=== PATIENT | male | born 1980 | race Caucasian/White ===

== ENCOUNTER 2023-09-30 20:36 | Inpatient (IN) | payer OTHER, SELFPAY ==
[2023-09-30 20:49] VITALS: BP 128/78; PULSE 145; RESP 20; TEMP 36.6; O2SAT 94; BMI 34.4
--- NOTE | 2023-09-30 21:00 | XR_ITS ---
The [address] [address] Patient Name: KANDICE POLANCO MRN: [id number] date: 1980 Sex: M Assigned Patient Location: ER Current Patient Location: ER Accession/Order Number: [id number] Exam Date: 09/30/2023 21:25 Report Date: 09/30/2023 22:13 At the request of: ELVIRA MAYFIELD Procedure: XR foot RT min 3V EXAM: XR foot RT min 3V HISTORY: The patient is a 43-year-old male, injury COMPARISON: None. FINDINGS: The right foot is radiographically negative with no evidence of fracture, dislocation, joint space narrowing, osteophytes, or other osseous or articular abnormalities. Specifically, no osseous or articular abnormalities are seen of the fifth toe. No radiopaque foreign bodies are seen. XR/XR foot RT min 3V IMPRESSION: No osseous or articular abnormality seen. Electronically authenticated by: WILMA HINTON Date: 09/30/2023 22:13
--- NOTE | 2023-09-30 21:02 | ED_ITS ---
HPI - Extremity Injury (Lower) General Chief Complaint: Extremity Injury, Lower Stated Complaint: FOOT INJURY Time Seen by Provider: 09/30/23 20:54 Source: patient and family Mode of arrival: Wheelchair Limitations: physical limitation History of Present Illness HPI Narrative: patient has history of bipolar depression. is on multiple meds including zyprexa, neurontin, omega 3, vistaril,prozac, doxepin and clonidine . Admits he is an alcoholic. Describes drinking 6 tall boys a day and whiskey. States last drink was 5AM.States he does have withdrawal from alcohol manifested by shaking. he is shaking now but attributes this to be nervous. He lives with his mother who is at the bed side. He presents with a laceration of the right 5th toe. He belies he cut it yesterday and his mother believes he cut it today. States he step on a Lego toy or similar. He has dried blood on the bottom of both feet from walking in the blood. States he fell striking his chin and then changed his mind stating he did not fall. Related Data Home Medications Medication Instructions Recorded Confirmed clonidine HCl 0.2 mg tablet 0.2 mg PO BEDTIME 09/30/23 10/01/23 doxepin 10 mg capsule 10 mg PO .hs 09/30/23 10/01/23 fluoxetine 10 mg capsule 10 mg PO DAILY 09/30/23 10/01/23 gabapentin 100 mg capsule 100 mg PO TID 09/30/23 10/01/23 gabapentin 300 mg capsule 600 mg PO Q8H 09/30/23 10/01/23 hydroxyzine pamoate 50 mg capsule 50 mg PO Q8H 09/30/23 10/01/23 olanzapine 20 mg tablet 20 mg PO BEDTIME 09/30/23 10/01/23 omega-3 acid ethyl esters 1 gram 2 cap PO BID 09/30/23 10/01/23 capsule omeprazole 20 mg capsule,delayed 20 mg PO DAILY 09/30/23 10/01/23 release buspirone 10 mg tablet 10 mg PO TID 10/01/23 10/01/23 melatonin 3 mg tablet 3 mg PO BEDTIME 10/01/23 10/01/23 viloxazine 200 mg capsule,extended 400 mg PO BEDTIME 10/01/23 10/01/23 release 24 hr (Qelbree) Allergies Allergy/AdvReac Type Severity Reaction Status Date / Time azithromycin Allergy Intermediate Verified 09/30/23 21:03 codeine Allergy Intermediate Verified 09/30/23 20:58 Penicillins Allergy Intermediate Verified 09/30/23 20:58 Sulfa (Sulfonamide Allergy Intermediate Verified 09/30/23 20:58 Antibiotics) Review of Systems ROS Status of ROS other (limited as patient is anxious and poor historian) [facility] Medical History Anxiety ?F41.9 - Anxiety disorder, unspecified (ICD-10) Bipolar 1 disorder ?F31.9 - Bipolar disorder, unspecified (ICD-10) Social History Within the past year, how often did you have a drink containing alcohol: 4 or more times a week Within the past year, how many standard drinks containing alcohol did you have on a typical day: 7 to 9 Within the past year, how often did you have six or more drinks on one occasion: daily or almost daily Total score: 10 Score interpretation: A score of 4 or more indicates drinking is likely to affect patient's safety. Smoking status: Current every day smoker Non-prescribed substance use: cannabis (any form) Highest level of school completed/degree received: some college, no degree Exam Constitutional Vital Signs, click to edit/add: Last Vital Signs Temp 97.8 F 09/30/23 20:49 Pulse 145 H 09/30/23 20:49 Resp 20 09/30/23 20:49 BP 128/78 09/30/23 20:49 Pulse Ox 94 L 09/30/23 20:49 O2 Del Method Room Air 09/30/23 20:49 Common normals: no apparent distress, oriented x3, alert and well nourished HENVA Common normals: normocephalic and head/scalp atraumatic Eye Common normals: EOMs intact bilaterally and conjunctivae normal Respiratory Common normals: normal respiratory effort, no retractions, no use of accessory muscles and clear to auscultation bilaterally Cardio Common normals: regular rate, regular rhythm, S1 normal heart sound and S2 normal heart sound GI Common normals: Normal to inspection, nondistended, normoactive bowel sounds present and soft to palpation Extremity Other: lac right 5th toe. blood on soles bilat feet. Neuro Common normals: CN's II-XII intact bilaterally, moves all extremities and no focal motor deficits Psych Mood and affect: anxious Course Vital Signs Vital signs: Vital Signs Temperature 97.8 F 09/30/23 20:49 Pulse Rate 145 H 09/30/23 20:49 Respiratory Rate 20 09/30/23 20:49 Blood Pressure 128/78 09/30/23 20:49 Pulse Oximetry 94 L 09/30/23 20:49 Oxygen Delivery Method Room Air 09/30/23 20:49 Temperature 97.8 F 09/30/23 20:49 Pulse Rate 145 H 09/30/23 20:49 Respiratory Rate 20 09/30/23 20:49 Blood Pressure 128/78 09/30/23 20:49 Pulse Oximetry 94 L 09/30/23 20:49 Oxygen Delivery Method Room Air 09/30/23 20:49 MDM - Extremity Injury (Lower) MDM Narrative Medical decision making narrative: patient is poor historian. bipolar illness and alcoholic. Resides at home with his mother. After repeated questioning he apparently dropped a toy or something on his foot lacerating his 5th right toe. lac repaired. Xray without evidence of bony fracture. Patient is AxOx4 but at times appears confused. Mother admits that he has had responsibility of taking his [facility] meds of which there are many. She use to give them to him. he is jittery and states this happens to him with his anxiety and with alcohol withdrawal. have advised his mother that she should take responsibility of giving him his medications. CT brain neg. He is confused . May be from taking more of his medication than prescribe and could be alcohol withdrawal. patient is starting to have visual hallucinations. Discussed with the hospitalist and will plan obs admission Discharge Plan Discharge Chief Complaint: Extremity Injury, Lower Clinical Impression: Tremor, Hallucination, visual Laceration of fifth toe of right foot Qualifiers: Encounter type: initial encounter Qualified Code(s): S91.114A - Laceration without foreign body of right lesser toe(s) without damage to nail, initial encounter Altered mental state Qualifiers: Altered mental status type: delirium Qualified Code(s): R41.0 - Disorientation, unspecified Patient Disposition: Admitted as Observation Discharge Date/Time: 10/01/23 00:46 Procedures ED Procedure Instructions Procedures Procedures: right fifth toe lac. 2cm flap lac dorsum right 5th toe to the edge of the nail. Nail intact. 1%lido as a local. site cleaned with betadine and rinsed with saline. repaired with #4 3.0 prolene. no complications
[2023-09-30 21:25] LABS: Basophils Absolute Auto 0.1 10^3/uL (0.0-0.1); Basophils Percent Auto 0.6 % (0.2-2.0); Eosinophils Absolute Auto 0.1 10^3/uL (0.0-0.7); Eosinophils Percent Auto 0.8 % (0.9-7.0); Hemoglobin 15.6 g/dL (14.0-18.0); Immature Granulocytes Abs Auto 0.04 10^3/uL (0.00-0.03); Immature Granulocytes Pct Auto 0.3 % (0.0-0.5); Lymphocytes Absolute Auto 3.9 10^3/uL (1.2-3.8); Lymphocytes Percent Auto 25.3 % (20.5-60.0); Mean Corpuscular HGB Conc 34.7 g/dL (29.9-35.2); Mean Corpuscular Hemoglobin 30.8 pg (25.9-34.0); Mean Corpuscular Volume 88.9 fL (80.0-94.0); Mean Platelet Volume 9.6 fL (9.5-13.5); Monocytes Absolute Auto 1.3 10^3/uL (0.3-0.8); Monocytes Percent Auto 8.1 % (1.7-12.0); Neutrophils Absolute Auto 10.1 10^3/uL (1.4-6.5); Neutrophils Percent Auto 64.9 % (43.0-75.0); Platelet Count 405 10^3/uL (150-450); Red Blood Count 5.06 10^6/uL (4.70-6.10); Red Cell Distribution Width 12.2 % (11.0-15.0); White Blood Count 15.5 10^3/uL (4.0-11.0)
[2023-09-30 21:34] LABS: Salicylate 17.3 mg/dL (<=19.9)
[2023-09-30 21:36] LABS: Alanine Aminotransferase 58 U/L (16-63); Albumin Level 3.9 g/dL (3.4-5.0); Alkaline Phosphatase 102 U/L (46-116); Anion Gap 15.4; Aspartate Amino Transferase 19 U/L (15-37); BUN Creatinine Ratio 10.8; Bilirubin Total 0.3 mg/dL (0.2-1.0); Carbon Dioxide 24.1 mmol/L (21.0-32.0); Chloride 98 mmol/L (98-107); Estimated GFR (African America 51 (>=60); Estimated GFR (Non-African Ame 42 (>=60); Globulin 3.9 g/dL; Glucose 130 mg/dL (74-106); Potassium 3.5 mmol/L (3.5-5.1); Sodium 134 mmol/L (136-145); Total Protein 7.8 g/dL (6.4-8.2)
[2023-09-30 21:46] LABS: Acetaminophen <2.0 ug/mL (10.0-30.0); Ethanol <3 mg/dL
[2023-09-30] MEDS: LIDOCAINE HCL 1% 100 MG/10 ML MDV INJ (22:05)
--- NOTE | 2023-09-30 22:21 | CT_ITS ---
The [address] [address] Patient Name: KANIDCE POLANCO MRN: [id number] date: 1980 Sex: M Assigned Patient Location: ER Current Patient Location: ER Accession/Order Number: [id number] Exam Date: 09/30/2023 22:29 Report Date: 09/30/2023 22:53 At the request of: ELVIRA MAYFIELD Procedure: CT cervical spine wo con EXAM: CT head/brain wo con, CT cervical spine wo con CLINICAL INDICATION: fall COMPARISON: None TECHNIQUE: Unenhanced computerized tomography of the head was performed. Automated dose reduction technique was employed. Multiple axial slices of the cervical spine were obtained without contrast and with coronal and sagittal reformatted images. COMPARISON: None. FINDINGS: The ventricles are normal in size, configuration, and position for age. There is no intra- or extra-axial mass, hemorrhage, or fluid collection. No areas of abnormal mass effect or attenuation are noted. Visualized paranasal sinuses are free of mucosal disease. No depressed calvarial fracture. Vertebral height and alignment is preserved. No acute fracture or subluxation. The atlanto occipital joint is maintained. The odontoid and lateral masses are intact. Mild multilevel degenerative changes of the cervical spine. The prevertebral soft tissues are within normal limits. The adjacent structures appear intact. The visualized soft tissues of the neck are normal. CT/CT cervical spine wo con IMPRESSION: 1. No acute intracranial abnormality noted. 2. No acute fracture or subluxation of the cervical spine. Electronically authenticated by: CATHERINE DIEGO Date: 09/30/2023 22:53
--- NOTE | 2023-09-30 22:21 | CT_ITS ---
The [address] [address] Patient Name: KANDICE POLANCO MRN: [id number] date: 1980 Sex: M Assigned Patient Location: ER Current Patient Location: ER Accession/Order Number: [id number] Exam Date: 09/30/2023 22:29 Report Date: 09/30/2023 22:53 At the request of: ELVIRA MAYFIELD Procedure: CT head/brain wo con EXAM: CT head/brain wo con, CT cervical spine wo con CLINICAL INDICATION: fall COMPARISON: None TECHNIQUE: Unenhanced computerized tomography of the head was performed. Automated dose reduction technique was employed. Multiple axial slices of the cervical spine were obtained without contrast and with coronal and sagittal reformatted images. COMPARISON: None. FINDINGS: The ventricles are normal in size, configuration, and position for age. There is no intra- or extra-axial mass, hemorrhage, or fluid collection. No areas of abnormal mass effect or attenuation are noted. Visualized paranasal sinuses are free of mucosal disease. No depressed calvarial fracture. Vertebral height and alignment is preserved. No acute fracture or subluxation. The atlanto occipital joint is maintained. The odontoid and lateral masses are intact. Mild multilevel degenerative changes of the cervical spine. The prevertebral soft tissues are within normal limits. The adjacent structures appear intact. The visualized soft tissues of the neck are normal. CT/CT head/brain wo con IMPRESSION: 1. No acute intracranial abnormality noted. 2. No acute fracture or subluxation of the cervical spine. Electronically authenticated by: CATHERINE DIEGO Date: 09/30/2023 22:53
[2023-09-30] MEDS: CLINDAMYCIN HCL 150 MG CAPSULE 300 MG PO (22:50)
[2023-09-30] MEDS: 0.9 % SODIUM CHLORIDE 1,000 ML 999 ML IV (23:05)
[2023-09-30] MEDS: LORAZEPAM 2 MG/ML 1 ML VIAL 1 MG IV (23:30)
[2023-09-30 23:32] LABS: Amphetamine Screen Urine NEGATIVE (NEGATIVE); Barbiturates Screen Urine NEGATIVE (NEGATIVE); Benzodiazepines Screen Urine NEGATIVE (NEGATIVE); Buprenorphine Screen Urine NEGATIVE (NEGATIVE); Cannabinoid Screen Urine POSITIVE (NEGATIVE); Cocaine Screen Urine NEGATIVE (NEGATIVE); Methadone Screen Urine NEGATIVE (NEGATIVE); Methamphetamines Screen Urine NEGATIVE (NEGATIVE); Opiate Screen Urine NEGATIVE (NEGATIVE); Oxycodone Screen Urine NEGATIVE (NEGATIVE); Phencyclidine Screen Urine NEGATIVE (NEGATIVE); Tricyclic Antidepressant Urine POSITIVE (NEGATIVE)
[2023-09-30 23:38] VITALS: BP 121/73; PULSE 135; RESP 24; O2SAT 96
--- NOTE | 2023-09-30 23:41 | PC.NURSE ---
Patient has just started having visual hallucinations that include seeing kittens in the corner of his room. His speech has become more jumbled and confused also. During his last set of vitals, he took the pulse ox monitor off of his finger and shoved it into his mouth saying it was illegal contraband and needed to get rid of it. This behavior was corrected and he was told not to do this. He has tried to pull out his IV numerous times, RN is acting as constand observer at this time for patient safety.
[2023-10-01] VITALS (149 sets, daily range): BP systolic 89–164; BP diastolic 52–112; PULSE 92–147; RESP 12–30; TEMP 36.4–37.2; O2SAT 66–147; BMI 37.5
[2023-10-01 00:40] LABS: Bilirubin Urine NEGATIVE (NEGATIVE); Blood Urine NEGATIVE (NEGATIVE); Clarity Urine CLEAR (CLEAR); Color Urine YELLOW (YELLOW); Glucose Urine UA NEGATIVE (NEGATIVE); Ketones Urine TRACE mg/dL (NEGATIVE); Leukocyte Esterase Urine NEGATIVE (NEGATIVE); Nitrite Urine NEGATIVE (NEGATIVE); Protein Urine NEGATIVE (NEG/TRACE); Specific Gravity Urine >=1.030 (1.005-1.025); Urobilinogen Urine 0.2 EU/dL (0.2-1.0)
[2023-10-01] MEDS: LORAZEPAM 2 MG/ML 1 ML VIAL 1 MG IV ×2 (00:40→06:40)
[2023-10-01 00:43] LABS: Urine Microscopic Indicated NO
[2023-10-01] MEDS: ZIPRASIDONE MESYLATE 20 MG, WATER FOR INJECTION,STERILE 1.2 ML IM (01:52)
[2023-10-01] MEDS: HALOPERIDOL LACTATE 5 MG/ML VIAL IM ×2 (03:37→04:41)
[2023-10-01 04:35] LABS: Basophils Absolute Auto 0.1 10^3/uL (0.0-0.1); Basophils Percent Auto 0.4 % (0.2-2.0); Eosinophils Percent Auto 0.1 % (0.9-7.0); Hematocrit 41.2 % (42.0-54.0); Hemoglobin 13.8 g/dL (14.0-18.0); Immature Granulocytes Abs Auto 0.05 10^3/uL (0.00-0.03); Immature Granulocytes Pct Auto 0.3 % (0.0-0.5); Lymphocytes Absolute Auto 2.2 10^3/uL (1.2-3.8); Lymphocytes Percent Auto 13.3 % (20.5-60.0); Mean Corpuscular HGB Conc 33.5 g/dL (29.9-35.2); Mean Corpuscular Hemoglobin 30.3 pg (25.9-34.0); Mean Corpuscular Volume 90.5 fL (80.0-94.0); Mean Platelet Volume 9.7 fL (9.5-13.5); Monocytes Absolute Auto 1.5 10^3/uL (0.3-0.8); Monocytes Percent Auto 9.3 % (1.7-12.0); Neutrophils Absolute Auto 12.7 10^3/uL (1.4-6.5); Neutrophils Percent Auto 76.6 % (43.0-75.0); Platelet Count 341 10^3/uL (150-450); Red Blood Count 4.55 10^6/uL (4.70-6.10); Red Cell Distribution Width 12.2 % (11.0-15.0); White Blood Count 16.5 10^3/uL (4.0-11.0)
[2023-10-01 04:49] LABS: Alanine Aminotransferase 49 U/L (16-63); Albumin Level 3.6 g/dL (3.4-5.0); Alkaline Phosphatase 95 U/L (46-116); Anion Gap 17.4; Aspartate Amino Transferase 24 U/L (15-37); BUN Creatinine Ratio 10.3; Bilirubin Total 0.3 mg/dL (0.2-1.0); Calcium 8.6 mg/dL (8.5-10.1); Chloride 101 mmol/L (98-107); Estimated GFR (African America 49 (>=60); Estimated GFR (Non-African Ame 40 (>=60); Globulin 3.6 g/dL; Glucose 151 mg/dL (74-106); Potassium 3.4 mmol/L (3.5-5.1); Sodium 137 mmol/L (136-145); Total Protein 7.2 g/dL (6.4-8.2)
[2023-10-01] MEDS: OMEPRAZOLE 20 MG CAPSULE.DR PO (06:41)
[2023-10-01] MEDS: OLANZapine 5 MG TABLET 20 MG PO (06:45)
[2023-10-01] MEDS: HALOPERIDOL LACTATE 5 MG/ML VIAL 10 MG IM (08:11)
[2023-10-01] MEDS: LORAZEPAM 2 MG/ML 1 ML VIAL IV (08:11)
[2023-10-01] MEDS: DIPHENHYDRAMINE HCL 50 MG/ML (1ML) VIAL IV (08:11)
--- NOTE | 2023-10-01 08:42 | P.HP_ITS ---
H&P: HPI History of Present Illness Chief complaint: FOOT INJURY Narrative: patient is a 43-year-old male with past medical history of bipolar depression and alcoholism who presented to the Emergency Room last night with a laceration to his right 5th toe. In the emergency department he started shaking and acting oddly. He told the Emergency Room physician that his last drink was at 5 AM that morning so approximately seventeen hours from his last drink. He reported drinking about six tall beers a day along with whiskey.because of the shaking and also patient started to have some visual hallucinations the Emergency Room physician felt it best for admission due to his confusion and altered mental status. Patient arrived to the room and ICU approximately 1 AM. Nighttime staff and nighttime nurse practitioner gave patient Geodon, Haldol and Ativan without having any success at controlling patient's erratic behavior, combativeness. Patient has been on neuro checks as well as alcohol withdrawal scores. Patient attempted to bite staff as well as kick and throw punches. Patient was placed in soft restraints. He was then administered IV Ativan, another dose of Haldol, again without success.patient was then started on a Precedex drip which also did not seem to help. Patient became more somnolent, with agonal breathing and ABG showed respiratory acidosis with a low PO2. At this time patient could not protect his airway, and would not tolerate BiPAP ,so decision was made for intubation. and intubation was performed by anesthesia the vision. Dr. Lainez was consulted for Ventilator management. patient is currently on a propofol and Versed drip. Blood pressures are more controlled, tachycardia is still present but improving. Patient had PVCs. Chest x-ray was obtained that showed good placement of endotracheal tube, but with cardiomegaly and bilateral pleural effusions. He received a liter of normal saline as a bolus. Cardiac enzymes, echocardiogram, septic workup was initiated. Patient also found to have a leukocytosis along with acute kidney injury. Per nurse who spoke with patient 's mother, he has been intubated in the past in [facility] in [place] for acute alcohol withdrawal. It is uncertainto whether patient has been taking his medications correctly, urine drug screen was positive for THC, and tricyclic antidepressants. Review of Systems ROS Status of ROS unobtainable due to endotracheal tube and unobtainable due to mental status [facility] Medical History Anxiety ?F41.9 - Anxiety disorder, unspecified (ICD-10) Bipolar 1 disorder ?F31.9 - Bipolar disorder, unspecified (ICD-10) Social History Highest level of school completed/degree received: some college, no degree Meds Home Medications and Allergies Home Medications Medication Instructions Recorded Confirmed Type clonidine HCl 0.2 mg tablet 0.2 mg PO BEDTIME 09/30/23 10/01/23 History doxepin 10 mg capsule 10 mg PO .hs 09/30/23 10/01/23 History fluoxetine 10 mg capsule 10 mg PO DAILY 09/30/23 10/01/23 History gabapentin 100 mg capsule 100 mg PO TID 09/30/23 10/01/23 History gabapentin 300 mg capsule 600 mg PO Q8H 09/30/23 10/01/23 History hydroxyzine pamoate 50 mg capsule 50 mg PO Q8H 09/30/23 10/01/23 History olanzapine 20 mg tablet 20 mg PO BEDTIME 09/30/23 10/01/23 History omega-3 acid ethyl esters 1 gram 2 cap PO BID 09/30/23 10/01/23 History capsule omeprazole 20 mg capsule,delayed 20 mg PO DAILY 09/30/23 10/01/23 History release buspirone 10 mg tablet 10 mg PO TID 10/01/23 10/01/23 History melatonin 3 mg tablet 3 mg PO BEDTIME 10/01/23 10/01/23 History viloxazine 200 mg capsule,extended 400 mg PO BEDTIME 10/01/23 10/01/23 History release 24 hr (Qelbree) Allergies Allergy/AdvReac Type Severity Reaction Status Date / Time azithromycin Allergy Intermediate Verified 09/30/23 21:03 codeine Allergy Intermediate Verified 09/30/23 20:58 Penicillins Allergy Intermediate Verified 09/30/23 20:58 Sulfa (Sulfonamide Allergy Intermediate Verified 09/30/23 20:58 Antibiotics) Exam Narrative Exam Narrative: General: Patient is currently intubated Skin: no visible rashes, or ulcers, bleeding of 5th toe right foot. Head: atraumatic, acephalic Eyes: PERRLA, no nystagmus present, conjunctiva clear, no scleral icterus Heart: Normal rate and rhythm, no murmurs/rubs/gallops Lungs: no audible wheezes, crackles and normal breath sounds all lung [place] Abdomen: Normal audible bowel sounds, no distension, No palpable masses, no organomegaly, no rebound/guarding/ or rigidity Musculoskeletal: no swelling bilateral lower extremities Neuro: CN II-X grossly intact Constitutional Vital Signs, click to edit/add: Last Vital Signs Temp 97.5 F L 10/01/23 01:37 Pulse 133 H 10/01/23 06:26 Resp 22 10/01/23 06:26 BP 127/77 10/01/23 06:26 Pulse Ox 94 L 10/01/23 06:26 O2 Del Method Room Air 10/01/23 06:26 Results Labs Labs: Short CBC 09/30/23 10/01/23 Range/Units 21:10 04:03 WBC 15.5 H 16.5 H (4.0-11.0) 10^3/uL Hgb 15.6 13.8 L (14.0-18.0) g/dL Hct 45.0 41.2 L (42.0-54.0) % Plt Count 405 341 (150-450) 10^3/uL BMP 09/30/23 10/01/23 21:10 04:03 Sodium 134 L 137 Potassium 3.5 3.4 L Chloride 98 101 Carbon Dioxide 24.1 22.0 BUN 19.0 H 19.0 H Creatinine 1.76 H 1.84 H Glucose 130 H 151 H Calcium 9.0 8.6 Liver Function 09/30/23 10/01/23 Range/Units 21:10 04:03 Total Bilirubin 0.3 0.3 (0.2-1.0) mg/dL AST 19 24 (15-37) U/L ALT 58 49 (16-63) U/L Alkaline Phosphatase 102 95 (46-116) U/L Albumin 3.9 3.6 (3.4-5.0) g/dL Urine 09/30/23 Range/Units 23:15 Urine Color Yellow (YELLOW) Urine Clarity Clear (CLEAR) Urine pH 5.0 (5.0-9.0) Ur Specific [place] >=1.030 A (1.005-1.025) Urine Protein Negative (NEG/TRACE) mg/dL Urine Glucose (UA) Negative (NEGATIVE) mg/dL Assessment and Plan Assessment and Plan (1) Acute hypoxic respiratory failure: Assessment and Plan: secondary to altered mental status which is secondary to possible psychiatric versus alcohol withdrawal. PH was 7.33 with a PO2 of fifty-six and a PCO2 of forty-five, patient was not able to maintain airway so endotracheal intubation was obtained. Chest x-ray showed good placement of ET tube. Patient is currently on propofol and Versed drips. Dr. Lainez is managing vent settings and adjustments. I appreciate his input. 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 Hopefully with sedation on Versed this should help improve his agitation as well. (3) Altered mental state: Assessment and Plan: polypharmacy versus alcohol versus drug abuse. uncertain etiology, but continue with neuro checks, CIWA scores, seizure precautions, and sedation. head CT was negative Qualifiers: Altered mental status type: delirium Qualified Code(s): R41.0 - Disorientation, unspecified (4) Laceration of fifth toe of right foot: Assessment and Plan: no active bleeding continue pressure dressing Qualifiers: Encounter type: initial encounter Qualified Code(s): S91.114A - Laceration without foreign body of right lesser toe(s) without damage to nail, initial encounter (5) Bipolar 1 disorder: Assessment and Plan: will hold home medications while patient is intubated and sedated (6) Leukocytosis: Assessment and Plan: lactate normal, we'll monitor and consider addition of IV antibiotics. Blood cultures ?2 and urinalysis obtained. Qualifiers: Leukocytosis type: unspecified Qualified Code(s): D72.829 - Elevated white blood cell count, unspecified (7) Elevated troponin level: Assessment and Plan: could be from acute kidney injury, aspiration, willl continue to trend, echocardiogram pending, no known cardiac history (8) YESSENIA (acute kidney injury): Assessment and Plan: we'll provide IV fluids at normal saline at fifty, patient has artery received a 1 L bolus. Plan patient is a full code Lovenox for deep vein thrombosis prophylaxis Due to patient's worsening condition patient was made inpatient status, I expect this patient to cross two midnights and require medically necessary hospital services
[2023-10-01] MEDS: DEXMEDETOMIDINE HCL 200 MCG in 0.9 % SODIUM CHLORIDE 50 ML 6.157 MCG IV (08:44)
--- NOTE | 2023-10-01 09:17 | PC.NURSE ---
Patient medicated and lightly sedated at this time. Patient remains combative upon arousal. Patient tries to bite, kick, punch patient and is sitting up in bed agitated mumbling incoherently. Patient is still in violent restraints. Patient tolerates restraints with minimal difficulties.
[2023-10-01 09:57] LABS: ABG PCO2 45.2 mmHg (35.0-45.0); Base Excess ABG -1.5 mmol/L (-2.0-2.0); HCO3 ABG 24.3 mmol/L (22.0-26.0); pH ABG 7.339 (7.350-7.450)
[2023-10-01 09:58] LABS: Allen Test POSITIVE (POSITIVE); Oxygen Saturation ABG 90.2 %; PO2 ABG 56.4 mmHg (80.0-100.0)
[2023-10-01 09:59] LABS: Liters per Minute 15; O2 Mode SIMPLE MASK; Puncture Site LR
[2023-10-01] MEDS: MIDAZOLAM HCL 2 MG/2 ML VIAL IV ×4 (10:20→19:51)
[2023-10-01] MEDS: PROPOFOL 200 MG/20 ML VIAL 150 MG IVP (10:21)
[2023-10-01] MEDS: SUCCINYLCHOLINE CHLORIDE 20 MG/ML VIAL 140 MG IV (10:22)
--- NOTE | 2023-10-01 10:26 | XR_ITS ---
[address] [address] Patient Name: KANDICE POLANCO MRN: [id number] date: 1980 Sex: M Assigned Patient Location: ICU Current Patient Location: ICU Accession/Order Number: [id number] Exam Date: 10/01/2023 10:35 Report Date: 10/01/2023 11:29 At the request of: SADIA SEGOVIA Procedure: XR chest 1V EXAM: XR chest 1V EXAM: XR chest 1V HISTORY: intubation COMPARISON: None. TECHNIQUE: AP view of the chest. Findings/impression: Status post ET tube placement with the distal tip 2.0 cm from roxi. Cardiomegaly with congestion. Left basilar atelectasis or pneumonia. Trace bilateral pleural effusions. No pneumothorax. Unremarkable osseous structures. Electronically authenticated by: KEVEN CARTER Date: 10/01/2023 11:29
[2023-10-01] MEDS: PROPOFOL 1,000 MG/100 ML VIAL 3.552 MG IV (10:30)
[2023-10-01] MEDS: 0.9 % SODIUM CHLORIDE 1,000 ML 100 ML IV (10:45)
--- NOTE | 2023-10-01 10:49 | CM.NOTE ---
Rounds made with Dr. Torres, pt in [address] Torres discussed with anesthesia for intubation. Blood cultures will be done, strep test, and urine.
--- NOTE | 2023-10-01 10:58 | CM.NOTE ---
Dr. Torres spoke with Dr. Lainez on telephone and will accept to do ventilator management for pt.
--- NOTE | 2023-10-01 11:16 | PC.NURSE ---
1015 Dr. Torres Anesthesia in room. 1020 Versed 2 mg 1021 Propofol 150mg 1022 Succinylcholine 140mg 1023 Intubated with an number 8 E.T tube, 24cm at the lip. 1025 87% Ox sat 125 HR 157/88BP, Positive Bilateral lung sounds Vent settings -AC, Tidal volume 500, Peep 5 FIO2 100% 1027 Peep increased to 8, Ox Sat 90% HR 123, RR 12, BP 161/96 1029 OG placed, 48cm @ lip, Gastric contents noted. Staff present RN Carlos Fernandez RT Dr. Brian Raines anesthesiologist, RN Anni Miller, Rn Tonie Winter and this nurse. Patient tolerated procedure well, Patient transitioned well from ambu-bag to ventilator. Patient placed on propofol drip, Precedex drip stopped at this time.
[2023-10-01 11:19] LABS: Bilirubin Urine NEGATIVE (NEGATIVE); Blood Urine LARGE (NEGATIVE); Clarity Urine CLEAR (CLEAR); Color Urine YELLOW (YELLOW); Glucose Urine UA NEGATIVE (NEGATIVE); Ketones Urine NEGATIVE (NEGATIVE); Leukocyte Esterase Urine NEGATIVE (NEGATIVE); Nitrite Urine NEGATIVE (NEGATIVE); Protein Urine TRACE mg/dL (NEG/TRACE); Specific Gravity Urine >=1.030 (1.005-1.025); Urine Microscopic Indicated YES; Urobilinogen Urine 0.2 EU/dL (0.2-1.0); pH Urine 5.5 (5.0-9.0)
[2023-10-01 11:21] LABS: Adenovirus NOT DETECTED (NOT DETECTE); Bordetella parapertussis NOT DETECTED (NOT DETECTE); Coronavirus 229E NOT DETECTED (NOT DETECTE); Coronavirus HKU1 NOT DETECTED (NOT DETECTE); Coronavirus NL63 NOT DETECTED (NOT DETECTE); Coronavirus OC43 NOT DETECTED (NOT DETECTE); Human Metapneumovirus NOT DETECTED (NOT DETECTE); Human Rhinovirus/Enterovirus NOT DETECTED (NOT DETECTE); Influenza A NOT DETECTED (NOT DETECTE); Influenza B NOT DETECTED (NOT DETECTE); Mycoplasma pneumoniae NOT DETECTED (NOT DETECTE); Parainfluenza Virus 1 NOT DETECTED (NOT DETECTE); Parainfluenza Virus 2 NOT DETECTED (NOT DETECTE); Parainfluenza Virus 3 NOT DETECTED (NOT DETECTE); Parainfluenza Virus 4 NOT DETECTED (NOT DETECTE); Respiratory Syncytial Virus NOT DETECTED (NOT DETECTE); SARS-CoV-2 NOT DETECTED (NOT DETECTE)
[2023-10-01 11:28] LABS: Internal Control Within Normal Limits; Strep A Antigen Screen Negative
[2023-10-01 11:29] LABS: RBC Urine 20-50 #/HPF (0-2); WBC Urine 0-2 #/HPF (NONE SEEN)
[2023-10-01 11:30] LABS: Bacteria Urine SMALL #/HPF (NONE SEEN); Cast Seen? NONE SEEN #/LPF (NONE SEEN); Crystals Seen? None Seen #/HPF (None Seen); Mucus Urine NONE SEEN (NONE SEEN); Squamous Epithelial Cell Urine FEW #/LPF (NONE/RARE)
[2023-10-01 11:41] LABS: INR 1.04; Partial Thromboplastin Time 30.2 sec (22.3-36.2)
[2023-10-01 11:47] LABS: Lactate/Lactic Acid 1.2 mmol/L (0.4-2.0)
[2023-10-01] MEDS: CEFAZOLIN SODIUM/DEXTROSE,ISO 2 GM/50 ML PIGGYBACK IV (11:50)
--- NOTE | 2023-10-01 11:51 | CA_ITS ---
Patient Name: KANDICE POLANCO MR#: [id number] : 1980 Exam Date: 10/02/2023 Ordering Doctor: Shannon Torres . ECHOCARDIOGRAM REPORT PROCEDURE: CA ECHO DOPPLER COMPLETE INDICATIONS: pvc's and pleural effusion, ventricular, ETOH COMPARISON: None. DESCRIPTION: COMPLETE ECHOCARDIOGRAM Real-time transthoracic echocardiography with 2D, M-mode, spectral and color flow Doppler performed. QUALITY: Technical quality was adequate. 70 , 261#, BSA 2.34 m2 LEFT VENTRICLE: Normal chamber size. Normal left ventricular wall thickness. Hyperdynamic left ventricular systolic function. Mild intracavitary gradients related to hyperdynamic contractility. LV EF: Hyperdynamic left ventricular ejection fraction, (75%). DIASTOLIC: Normal diastolic function. ATRIAL SEPTUM: LEFT ATRIUM: Normal chamber size. RIGHT ATRIUM: Normal chamber size. RIGHT VENTRICLE: Normal chamber size. Normal right ventricular systolic function. TRICUSPID VALVE: Normal mobility and thickness. No stenosis with trivial regurgitation. Doppler studies reveal mildly (35-45) elevated right sided pressures. RVSP 45 mmHg MITRAL VALVE: Normal mobility and thickness. No evidence of mitral valve stenosis. There is no mitral annular calcification. No mitral regurgitation. AORTIC VALVE: Normal trileaflet appearance. No visible sclerosis. Normal leaflet mobility. No evidence of aortic valve stenosis. No aortic regurgitation. AORTIC ROOT: Normal diameter and appearance. PULMONIC VALVE: Normal thickness and mobility. No stenosis. No regurgitation. PERICARDIUM: No evidence of pericardial effusion. IVC: IVC is mildly dilated (2.2 cm) with no collapse. PLEURA: CONCLUSION: 1. Hyperdynamic left ventricular systolic function. EF is 75%. 2. Normal right ventricular size and systolic function. 3. Normal diastolic function. 4. No significant valvular dysfunction. 5. Mildly elevated right sided pressures. Adult Echocardiography Procedure Report Left Ventricle LVEDD (3.7 - 5.6 cm): 4.87 cm LVESD (2.2 - 4.0 cm): 2.43 cm LVIVS thickness (0.6 - 1.2 cm): 1.02 cm LVPW thickness (0.5 - 1.0 cm): 1.11 cm LVOT Max Gradient: 9 mm[Hg] Peak Velocity (LVOT): 149.00 cm/s Mean Velocity (LVOT): 96.50 cm/s LVOT Diameter 2.60 cm Left Ventricular Ejection Fraction: 75 % Left Atrium LA Volume Index (2D A2C): 14986 mm3 Left Atrium Systolic Dimension: 3.50 cm Mitral Valve MV E to A Ratio: 0.90 Mitral Valve A-Wave Peak Velocity: 99.20 cm/s Mitral Valve E-Wave Peak Velocity: 92.80 cm/s Cardiovascular Orifice Area: 4.00 cm2 Right Ventricle Aorta AO Root Diam: 4.10 cm Aortic Valve AoV Area (Peak Asael): 5.38 cm2 AoV Area (VTI): 5.72 cm2 Peak Velocity(Antegrade Flow): 147.00 cm/s Peak Gradient(Antegrade Flow): 9 mm[Hg] Mean Velocity(Antegrade Flow): 109.00 cm/s Mean Gradient(Antegrade Flow): 5 mm[Hg] Velocity Time Integral: 25.80 cm Tricuspid Valve Peak Velocity (Regurgitant Flow): 275.00 cm/s Peak Velocity: 89.30 cm/s Pulmonic Valve Peak Velocity: 124.00 cm/s, 124.00 cm/s Peak Gradient: 6 mm[Hg] Right Atrium Dictated by: Jonny Alvarado M.D. on 10/02/2023 at 12:53 Approved by: Jonny Alvarado M.D. on 10/02/2023 at 12:58
[2023-10-01 12:12] LABS: Magnesium 1.8 mg/dL (1.8-2.4)
[2023-10-01] MEDS: PROPOFOL 1,000 MG/100 ML VIAL 49.728 MG IV ×4 (12:12→17:37)
--- NOTE | 2023-10-01 12:29 | ECG_ITS ---
[facility] Test Date: 2023-10-01 Pat Name: KANDICE POLANCO Department: Room: [facility] Gender: Male Manager Lean: : 1980 Requested By: [id number] Order Number: [id number] Reading MD: JAYLAN DEL TORO Measurements Intervals [place] Rate: 110 P: 40 MS: 150 QRS: -10 QRSD: 92 T: 43 QT: 336 QTc: 401 Interpretive Statements 1120 Sinus tachycardia w/ PVC in bigeminy pattern 8102 Low QRS voltage in chest leads 9140 abnormal rhythm ECG Electronically Signed On 10-02-2023 6:46:43 EST by JAYLAN DEL TORO
[2023-10-01 13:07] LABS: Troponin I High Sensitivity 78.5 pg/mL (4.0-76.1)
[2023-10-01] MEDS: MIDAZOLAM HCL 100 MG in 0.9 % SODIUM CHLORIDE 80 ML IV (13:42)
[2023-10-01] MEDS: 0.9 % SODIUM CHLORIDE 1,000 ML 50 ML IV (13:46)
[2023-10-01] MEDS: JEVITY 1.5 CAL 237 ML LIQUID 30 ML FEED TUBE (13:46)
[2023-10-01 15:01] LABS: ABG PCO2 41.7 mmHg (35.0-45.0); pH ABG 7.365 (7.350-7.450)
[2023-10-01 15:02] LABS: Allen Test POSITIVE (POSITIVE); Base Excess ABG -1.6 mmol/L (-2.0-2.0); HCO3 ABG 23.8 mmol/L (22.0-26.0); O2 Mode VENT; Oxygen Saturation ABG 98.8 %
[2023-10-01 15:03] LABS: Fractionated Inspired Oxygen 40 %; Puncture Site LR
[2023-10-01 15:04] LABS: Minute Volume 10.8
--- NOTE | 2023-10-01 15:05 | P.IMCN_ITS ---
HPI - Internal Medicine CN Data of Consult Consult date: 10/01/23 Requesting Physician: Shannon Torres DO Primary Care Provider: JUANITA KAYE Consult Narrative Reason for consult: Respiratory failure requiring invasive mechanical ventilation. Narrative: Patient was intubated and on mechanical ventilator at the time of evaluation and I was not able to obtain any hx from him. HPI is based on review of chart and information obtained from hospitalist involved in patient's clinical care. Patient came to ED last night for a lacerated toe and was acting appropriately initially but later on increasingly became more or more confused, agitated and was admitted overnight for treatment for alcohol withdrawal. Patient required multiple dosages of IV benzodiazepines, antipsychotics and later on IV Precedex drip for acute severe alcohol withdrawal. He was later on noted to have respiratory failure, with shallow, agonal breathing, hypoxia on ABG and decision was made to intubate the patient to protect his airway, treat his alcohol withdrawal and respiratory failure. After intubation, he was started on Propofol infusion for sedation. He was noted to have uncontrolled HTN, tachycardia and patient appeared to be uncomfortable, anxious and diaphoretic while in IV propofol infusion cc:: CC: Shannon Torres DO Review of Systems ROS Status of ROS unobtainable due to endotracheal tube and unobtainable due to mental status PFSH PFS Medical History Anxiety ?F41.9 - Anxiety disorder, unspecified (ICD-10) Bipolar 1 disorder ?F31.9 - Bipolar disorder, unspecified (ICD-10) Social History Within the past year, how often did you have a drink containing alcohol: 4 or more times a week Within the past year, how many standard drinks containing alcohol did you have on a typical day: 7 to 9 Within the past year, how often did you have six or more drinks on one occasion: daily or almost daily Total score: 10 Score interpretation: A score of 4 or more indicates drinking is likely to affect patient's safety. Smoking status: Current every day smoker Non-prescribed substance use: cannabis (any form) Highest level of school completed/degree received: some college, no degree Meds Home Medications and Allergies Home Medications Medication Instructions Recorded Confirmed Type clonidine HCl 0.2 mg tablet 0.2 mg PO BEDTIME 09/30/23 10/01/23 History doxepin 10 mg capsule 10 mg PO .hs 09/30/23 10/01/23 History fluoxetine 10 mg capsule 10 mg PO DAILY 09/30/23 10/01/23 History gabapentin 100 mg capsule 100 mg PO TID 09/30/23 10/01/23 History gabapentin 300 mg capsule 600 mg PO Q8H 09/30/23 10/01/23 History hydroxyzine pamoate 50 mg capsule 50 mg PO Q8H 09/30/23 10/01/23 History olanzapine 20 mg tablet 20 mg PO BEDTIME 09/30/23 10/01/23 History omega-3 acid ethyl esters 1 gram 2 cap PO BID 09/30/23 10/01/23 History capsule omeprazole 20 mg capsule,delayed 20 mg PO DAILY 09/30/23 10/01/23 History release buspirone 10 mg tablet 10 mg PO TID 10/01/23 10/01/23 History melatonin 3 mg tablet 3 mg PO BEDTIME 10/01/23 10/01/23 History viloxazine 200 mg capsule,extended 400 mg PO BEDTIME 10/01/23 10/01/23 History release 24 hr (Qelbree) Allergies Allergy/AdvReac Type Severity Reaction Status Date / Time azithromycin Allergy Intermediate Verified 09/30/23 21:03 codeine Allergy Intermediate Verified 09/30/23 20:58 Penicillins Allergy Intermediate Verified 09/30/23 20:58 Sulfa (Sulfonamide Allergy Intermediate Verified 09/30/23 20:58 Antibiotics) Exam Constitutional Vital Signs, click to edit/add: Last Vital Signs Temp 98.9 F 10/01/23 08:52 Pulse 102 H 10/01/23 14:00 Resp 12 10/01/23 13:00 BP 139/96 H 10/01/23 12:31 Pulse Ox 94 L 10/01/23 14:00 O2 Del Method Mechanical Ventilator 10/01/23 10:30 FiO2 100 10/01/23 14:00 Documenting provider has reviewed patient's vital signs: yes Exam limitations: altered mental status General appearance: anxious, diaphoretic and patient mechanically ventilated Nutritional appearance: obese Eye Common normals: PERRL, conjunctivae normal and no scleral icterus Respiratory Auscultation: clear to auscultation bilaterally and diminished lung sounds Other: Coarse breath sounds. No wheezing or rhonchi. Cardio Common normals: no JVD, S1 normal heart sound and S2 normal heart sound Rate: tachycardic Rhythm: regular rhythm GI Common normals: Normal to inspection, nondistended, normoactive bowel sounds present, soft to palpation, non-tender and no hepatosplenomegaly Extremity Common normals: normal to inspection and full ROM Neuro Common normals: moves all extremities, no focal motor deficits and no sensory deficits noted Sensorium/orientation: orientation impaired Other: Sedated, intubated. Psych Other: unable to obtain. Internal Medicine - CN: Reslt Labs Labs: Short CBC 09/30/23 10/01/23 Range/Units 21:10 04:03 WBC 15.5 H 16.5 H (4.0-11.0) 10^3/uL Hgb 15.6 13.8 L (14.0-18.0) g/dL Hct 45.0 41.2 L (42.0-54.0) % Plt Count 405 341 (150-450) 10^3/uL BMP 09/30/23 10/01/23 21:10 04:03 Sodium 134 L 137 Potassium 3.5 3.4 L Chloride 98 101 Carbon Dioxide 24.1 22.0 BUN 19.0 H 19.0 H Creatinine 1.76 H 1.84 H Glucose 130 H 151 H Calcium 9.0 8.6 Liver Function 09/30/23 10/01/23 Range/Units 21:10 04:03 Total Bilirubin 0.3 0.3 (0.2-1.0) mg/dL AST 19 24 (15-37) U/L ALT 58 49 (16-63) U/L Alkaline Phosphatase 102 95 (46-116) U/L Albumin 3.9 3.6 (3.4-5.0) g/dL Urine 09/30/23 10/01/23 Range/Units 23:15 11:00 Urine Color Yellow Yellow (YELLOW) Urine Clarity Clear Clear (CLEAR) Urine pH 5.0 5.5 (5.0-9.0) Ur Specific [place] >=1.030 A >=1.030 A (1.005-1.025) Urine Protein Negative Trace (NEG/TRACE) mg/dL Urine Glucose (UA) Negative Negative (NEGATIVE) mg/dL Assessment and Plan Assessment and Plan (1) Severe alcohol withdrawal with perceptual disturbances: Assessment and Plan: Severe alcohol withdrawal with DTs. Now intubated for acute respiratory failure with hypoxia. Continuous IV versed for Alcohol withdrawal while patient is intubated with PRN IV versed for acute agitation, anxiety. Monitor closely as high risk of alcohol withdrawal seizures. Last drink about > 24 hours. Anticipate needing close monitoring and treatment for another minimum 48 hours. CTH on admission - no acute pathology noted. Repeat ABG reviewed - acceptable gas exchange. C/w AC mode, VT 500, RR 12, PEEP 8, FIO2 30%. (2) DTs (delirium tremens): Assessment and Plan: Confusion with autonomic dysfunction. On IV versed. Titrate as needed. Monitor closely. (3) Acute hypoxic respiratory failure: Assessment and Plan: Sec to aspiration pneumonia with possible acute congestive HF (/unspecified). 2D ECHO ordered to assess cardiac structure. On ventilator now - will keep on ventilator until alcohol withdrawal has improved. In IV versed and propofol for sedation. Daily CXR, ABG for monitoring. Patient started on TF via OGT, along with IV protonix for stress ulcer px, free water flushes to prevent free water deficit and hypernatremia Discussed with hospitalist - defer abx and IV diuretic to primary team. (4) Aspiration pneumonia due to gastric secretions: Assessment and Plan: left lower PNA - f/u blood and sputum cx Negative resp panel. Defer abx to primary team. Qualifiers: Laterality: left Lung location: lower lobe of lung Qualified Code(s): J69.0 - Pneumonitis due to inhalation of food and vomit (5) Acute congestive heart failure: Assessment and Plan: No prior hx of congestive HF - but cardiomegaly with vascular congestion noted. With longstanding alcohol use - he could have alcohol induced cardiomyopathy. 2D ECHO ordered. Defer diuretics to primary team. Monitor daily weight, strict I/Os. Qualifiers: Heart failure type: unspecified Qualified Code(s): I50.9 - Heart failure, unspecified (6) Elevated troponin level: Assessment and Plan: Likely type 2 demand ischemia from hypoxic resp failure. Trend troponin. ECHO pending. Defer to primary team. Maintain Potassium >4, Mg > 2 (7) YESSENIA (acute kidney injury): Assessment and Plan: Unknown baseline but as far as we know, no known hx of CKD. Likely acute kidney injury. Monitor Cr, UO. Avoid IVF as appears volume overload and in acute congestive HF. (8) Leukocytosis: Assessment and Plan: Likely due to aspiration PNA. Infectious work up sent. Follow up cultures Primary team was planning to start Abx for aspiration PNA. Qualifiers: Leukocytosis type: unspecified Qualified Code(s): D72.829 - Elevated white blood cell count, unspecified (9) Laceration of fifth toe of right foot: Assessment and Plan: Originall reason for visit. Qualifiers: Encounter type: initial encounter Qualified Code(s): S91.114A - Laceration without foreign body of right lesser toe(s) without damage to nail, initial encounter (10) Bipolar 1 disorder: Assessment and Plan: C/w home medications. He is Prozac, gabapentin, buspirone and hydroxyzine Plan Patient critically ill with multiple active, acute problems and at high risk of clinical worsening, poor prognosis. Critical time spent over 45 minutes on patient's evaluation, review of chart, co ordination of care, clinical decision making.
[2023-10-01 15:08] LABS: Rate 12
[2023-10-01 15:12] LABS: Tidal Volume 500
--- NOTE | 2023-10-01 15:25 | PC.NURSE ---
Patient transitioned from hard restraints to soft restraints post intubation. Orders received.
[2023-10-01] MEDS: ENOXAPARIN SODIUM 40 MG/0.4 ML SYRINGE SUBQ (15:37)
[2023-10-01 15:43] LABS: Troponin I High Sensitivity 99.4 pg/mL (4.0-76.1)
[2023-10-01] MEDS: IPRATROPIUM/ALBUTEROL SULFATE 3 ML AMPUL.NEB IH ×2 (15:53→20:00)
--- NOTE | 2023-10-01 16:54 | DIETREC ---
Recommend 30 mL liquid PRO supplement (PROstat) 4x daily.
[2023-10-01] MEDS: CEFTAZIDIME 2,000 MG in 0.9 % SODIUM CHLORIDE 100 ML 200 MG IV (17:25)
[2023-10-01] MEDS: PROSTAT 15 GM PROTEIN/100 CAL 30 ML LIQUID PACKET PO (17:32)
[2023-10-01 17:54] LABS: Troponin I High Sensitivity 79.2 pg/mL (4.0-76.1)
[2023-10-01] MEDS: CLONIDINE HCL 0.1 MG TABLET PO (20:09)
[2023-10-01] MEDS: PROPOFOL 1,000 MG/100 ML VIAL 52.57 MG IV (20:18)
[2023-10-01] MEDS: JEVITY 1.5 CAL 237 ML LIQUID FEED TUBE (22:44)
[2023-10-01] MEDS: PROPOFOL 1,000 MG/100 ML VIAL 53.99 MG IV (22:45)
[2023-10-02] VITALS (91 sets, daily range): BP systolic 100–159; BP diastolic 59–109; PULSE 88–130; RESP 19–26; TEMP 36.4–37.3; O2SAT 87–99
[2023-10-02] MEDS: PROSTAT 15 GM PROTEIN/100 CAL 30 ML LIQUID PACKET PO ×4 (00:02→17:02)
[2023-10-02] MEDS: CEFTAZIDIME 2,000 MG in 0.9 % SODIUM CHLORIDE 100 ML 200 MG IV ×3 (00:07→16:09)
[2023-10-02] MEDS: PROPOFOL 1,000 MG/100 ML VIAL 76 MG IV (01:35)
[2023-10-02] MEDS: PROPOFOL 1,000 MG/100 ML VIAL 74 MG IV (03:20)
[2023-10-02] MEDS: IPRATROPIUM/ALBUTEROL SULFATE 3 ML AMPUL.NEB IH ×4 (04:00→20:03)
[2023-10-02] MEDS: 0.9 % SODIUM CHLORIDE 1,000 ML 100 ML IV (04:28)
[2023-10-02 04:37] LABS: Basophils Percent Auto 0.2 % (0.2-2.0); Eosinophils Percent Auto 0.2 % (0.9-7.0); Hematocrit 42.3 % (42.0-54.0); Hemoglobin 14.2 g/dL (14.0-18.0); Immature Granulocytes Abs Auto 0.03 10^3/uL (0.00-0.03); Immature Granulocytes Pct Auto 0.3 % (0.0-0.5); Lymphocytes Percent Auto 17.2 % (20.5-60.0); Mean Corpuscular HGB Conc 33.6 g/dL (29.9-35.2); Mean Corpuscular Hemoglobin 30.9 pg (25.9-34.0); Mean Corpuscular Volume 92.2 fL (80.0-94.0); Mean Platelet Volume 10.4 fL (9.5-13.5); Monocytes Absolute Auto 1.2 10^3/uL (0.3-0.8); Monocytes Percent Auto 10.4 % (1.7-12.0); Neutrophils Absolute Auto 8.3 10^3/uL (1.4-6.5); Neutrophils Percent Auto 71.7 % (43.0-75.0); Platelet Count 324 10^3/uL (150-450); Red Blood Count 4.59 10^6/uL (4.70-6.10); Red Cell Distribution Width 12.6 % (11.0-15.0); White Blood Count 11.6 10^3/uL (4.0-11.0)
[2023-10-02] MEDS: PROPOFOL 1,000 MG/100 ML VIAL 68 MG IV ×2 (04:42→08:24)
[2023-10-02 04:49] LABS: Base Excess ABG 0.1 mmol/L (-2.0-2.0); HCO3 ABG 24.8 mmol/L (22.0-26.0); Oxygen Saturation ABG 94.3 %; PO2 ABG 65.6 mmHg (80.0-100.0); pH ABG 7.402 (7.350-7.450)
[2023-10-02 04:50] LABS: Allen Test POSITIVE (POSITIVE); Fractionated Inspired Oxygen 30 %; O2 Mode VENTILATOR; Puncture Site L RADIAL; Rate 12; Tidal Volume 500; Vent Mode AC
[2023-10-02 05:00] LABS: Alanine Aminotransferase 77 U/L (16-63); Albumin Globulin Ratio 0.9; Albumin Level 3.4 g/dL (3.4-5.0); Alkaline Phosphatase 86 U/L (46-116); Aspartate Amino Transferase 298 U/L (15-37); Bilirubin Total 0.4 mg/dL (0.2-1.0); Calcium 8.5 mg/dL (8.5-10.1); Carbon Dioxide 26.6 mmol/L (21.0-32.0); Chloride 102 mmol/L (98-107); Estimated GFR (African America >60 (>=60); Estimated GFR (Non-African Ame >60 (>=60); Globulin 3.9 g/dL; Glucose 151 mg/dL (74-106); Potassium 3.6 mmol/L (3.5-5.1); Sodium 137 mmol/L (136-145); Total Protein 7.3 g/dL (6.4-8.2)
[2023-10-02] MEDS: JEVITY 1.5 CAL 237 ML LIQUID FEED TUBE ×3 (05:04→18:16)
[2023-10-02] MEDS: PANTOPRAZOLE SODIUM 40 MG VIAL IV (05:08)
--- NOTE | 2023-10-02 06:00 | XR_ITS ---
[address] [address] Patient Name: KANDICE POLANCO MRN: [id number] date: 1980 Sex: M Assigned Patient Location: ICU Current Patient Location: ICU Accession/Order Number: [id number] Exam Date: 10/02/2023 06:10 Report Date: 10/02/2023 06:36 At the request of: SHAIKH LONDON Procedure: XR chest 1V EXAMINATION: XR chest 1V HISTORY: Ventilator COMPARISON: XR chest 10/01/2023 FINDINGS: LUNGS: Endotracheal tube with tip 3.0 cm above the roxi. Underexpanded lungs with mild haziness within lung bases and slight blunting of left lateral costophrenic angle. VASCULATURE: No increased pulmonary vasculature. PLEURA: No pneumothorax. CARDIAC: No cardiomegaly or cardiac silhouette abnormality. MEDIASTINUM: No visible mass or adenopathy. BONES: No fracture or visible bone lesion. OTHER: Nasogastric tube extends into body of stomach. XR/XR chest 1V IMPRESSION: 1. Stable endotracheal tube 3.0 cm above the roxi. 2. Mildly expanded lungs with mild bibasilar atelectasis versus infiltrates. 2. Small left pleural effusion cannot be excluded. Electronically authenticated by: LISA SILVA Date: 10/02/2023 06:36
[2023-10-02] MEDS: FLUOXETINE HCL 10 MG CAPSULE PO (08:24)
--- NOTE | 2023-10-02 08:26 | PM.PN ---
Progress Note: Subjective Subjective Interval history: Patient remains intubated and sedated. increased titration of Versed drip today due to aggitation after Liver ultrasound. ABG's remain stable, he appears comfortable now. Vitals stable, afebrile. Exam Narrative Exam Narrative: Skin: right 5th digit laceration not actively bleeding Head: atraumatic, acephalic Heart: Normal rate and rhythm, no murmurs/rubs/gallops Lungs: no audible wheezes, crackles and normal breath sounds all lung armstrong Abdomen: Normal audible bowel sounds, no distension, No palpable masses, no organomegaly, no rebound/guarding/ or rigidity, central obesity Musculoskeletal: no swelling bilateral lower extremities, moving all 4 extremities Constitutional Vital Signs, click to edit/add: Last Vital Signs Temp 97.6 F 10/02/23 07:59 Pulse 94 H 10/02/23 08:10 Resp 25 H 10/02/23 07:01 BP 124/76 10/02/23 08:00 Pulse Ox 96 10/02/23 08:10 O2 Del Method Mechanical Ventilator 10/02/23 07:59 FiO2 30 10/02/23 07:01 General appearance: patient mechanically ventilated Progress Note: Objective Labs Labs: Short CBC 10/02/23 Range/Units 04:26 WBC 11.6 H (4.0-11.0) 10^3/uL Hgb 14.2 (14.0-18.0) g/dL Hct 42.3 (42.0-54.0) % Plt Count 324 (150-450) 10^3/uL BMP 10/02/23 04:26 Sodium 137 Potassium 3.6 Chloride 102 Carbon Dioxide 26.6 BUN 13.0 Creatinine 1.08 Glucose 151 H Calcium 8.5 Liver Function 10/02/23 Range/Units 04:26 Total Bilirubin 0.4 (0.2-1.0) mg/dL AST 298 H (15-37) U/L ALT 77 H (16-63) U/L Alkaline Phosphatase 86 (46-116) U/L Albumin 3.4 (3.4-5.0) g/dL Urine 10/01/23 Range/Units 11:00 Urine Color Yellow (YELLOW) Urine Clarity Clear (CLEAR) Urine pH 5.5 (5.0-9.0) Ur Specific [place] >=1.030 A (1.005-1.025) Urine Protein Trace (NEG/TRACE) mg/dL Urine Glucose (UA) Negative (NEGATIVE) mg/dL Progress Note: A&P Assessment and Plan (1) Severe alcohol withdrawal with perceptual disturbances: Assessment and Plan: Chest x-ray showed good placement of ET tube this morning, ABG's show acceptable vent settings. Patient is currently on propofol and Versed drips and needed titrated up this morning but patient more comfortable now. Dr. Lainez is managing vent settings and adjustments. I appreciate his input. (2) DTs (delirium tremens): Assessment and Plan: patient did not respond to Geodon, Ativan, Haldol or Precedex. Symptoms worsened yesterday and was intubated. Continue Versed. May need to add back Precedex if needed. Hopeful trial off sedation in the next 24 hours (3) Acute hypoxic respiratory failure: Assessment and Plan: Viral cultures negative, concern for possible aspiration PNA, continue Invanz, leukocytosis improving. (4) Aspiration pneumonia due to gastric secretions: Assessment and Plan: possibly causing #3, continue invanz Qualifiers: Laterality: left Lung location: lower lobe of lung Qualified Code(s): J69.0 - Pneumonitis due to inhalation of food and vomit (5) Elevated troponin level: Assessment and Plan: most likely type 2 NSTEMI, trop down to normal range, vitals stable, Echocardiogram showed normal EF. Cards consult just for any additional input. (6) Laceration of fifth toe of right foot: Assessment and Plan: monitor, keep on pressure dressing if possible Qualifiers: Encounter type: initial encounter Qualified Code(s): S91.114A - Laceration without foreign body of right lesser toe(s) without damage to nail, initial encounter (7) Bipolar 1 disorder: Assessment and Plan: will hold home medications while patient is intubated and sedated Plan patient is a full code Lovenox for deep vein thrombosis prophylaxis Urinary Catheter Management Urinary Catheter Management Urethral: Cath placed during this visit: yes Urethral indwelling: Yes Reason for continuing: prolonged immobilization Insertion date: 10/01/23 Insertion time: 09:10
--- NOTE | 2023-10-02 08:27 | US_ITS ---
[address] [address] Patient Name: KANDICE POLANCO MRN: [id number] date: 1980 Sex: M Assigned Patient Location: ICU Current Patient Location: ICU Accession/Order Number: [id number] Exam Date: 10/02/2023 08:30 Report Date: 10/02/2023 09:26 At the request of: ELENO SEGOVIA Procedure: US right upper quadrant EXAM: US right upper quadrant HISTORY: increased liver function tests COMPARISON: None. TECHNIQUE: Grayscale, color and Doppler FINDINGS: The liver is enlarged in size. Increased hepatic echotexture. No focal mass. Hepatopedal flow in the main portal vein with velocity of 20 cm/s The gallbladder is enlarged measuring 12.6 cm. The wall measures 1.6 mm, normal. Negative sonographic Marie sign. No cholelithiasis. The common bile duct measures 8 mm, enlarged. The visualized pancreas is normal The right kidney measures 8.8 x 6.1 x 4.8 cm. The cortex measures 0.9 cm US/US right upper quadrant IMPRESSION: Echogenic liver suggesting steatosis Gallbladder hydrops Dilated common bile duct with no focal obstruction observed Electronically authenticated by: CORRINA PIZARRO Date: 10/02/2023 09:26
[2023-10-02] MEDS: MIDAZOLAM HCL 2 MG/2 ML VIAL IV (09:36)
--- NOTE | 2023-10-02 09:47 | P.CACN_ITS ---
<Statement entered by CATALINA VIGIL - 10/04/23 16:39> This documentation has been reviewed and approved. History of Present Illness History of Present Illness Consult date: 10/02/23 Requesting physician: Shannon Torres Chief complaint: FOOT INJURY Narrative: Patient is a 43 y/o M with PMHx of anxiety, bipolar 1 disorder, and ETOH abuse who presented to [facility] with c/o a toe laceration. He was intoxicated when he arrived. He started going through withdrawls while he was admitted requiring for him to be intubated and sedated. Patients mother reports that this is not abnormal for patient. No known complaints of any chest pain while in the ER per nursing staff. Cardiology has been consulted for elevated troponin. High sensitivity troponin peaked at 99.4 and down trended to 52 this AM. Patient seen and examined at bedside. He remains intubated and sedated. Review of Systems ROS Status of ROS unobtainable due to medical condition [facility] Medical History Anxiety ?F41.9 - Anxiety disorder, unspecified (ICD-10) Bipolar 1 disorder ?F31.9 - Bipolar disorder, unspecified (ICD-10) Social History Within the past year, how often did you have a drink containing alcohol: 4 or more times a week Within the past year, how many standard drinks containing alcohol did you have on a typical day: 7 to 9 Within the past year, how often did you have six or more drinks on one occasion: daily or almost daily Total score: 10 Score interpretation: A score of 4 or more indicates drinking is likely to affect patient's safety. Smoking status: Current every day smoker Non-prescribed substance use: cannabis (any form) Highest level of school completed/degree received: some college, no degree Meds Home Medications and Allergies Home Medications Medication Instructions Recorded Confirmed Type clonidine HCl 0.2 mg tablet 0.2 mg PO BEDTIME 09/30/23 10/01/23 History doxepin 10 mg capsule 10 mg PO .hs 09/30/23 10/01/23 History fluoxetine 10 mg capsule 10 mg PO DAILY 09/30/23 10/01/23 History gabapentin 100 mg capsule 100 mg PO TID 09/30/23 10/01/23 History gabapentin 300 mg capsule 600 mg PO Q8H 09/30/23 10/01/23 History hydroxyzine pamoate 50 mg capsule 50 mg PO Q8H 09/30/23 10/01/23 History olanzapine 20 mg tablet 20 mg PO BEDTIME 09/30/23 10/01/23 History omega-3 acid ethyl esters 1 gram 2 cap PO BID 09/30/23 10/01/23 History capsule omeprazole 20 mg capsule,delayed 20 mg PO DAILY 09/30/23 10/01/23 History release buspirone 10 mg tablet 10 mg PO TID 10/01/23 10/01/23 History melatonin 3 mg tablet 3 mg PO BEDTIME 10/01/23 10/01/23 History viloxazine 200 mg capsule,extended 400 mg PO BEDTIME 10/01/23 10/01/23 History release 24 hr (Qelbree) Allergies Allergy/AdvReac Type Severity Reaction Status Date / Time azithromycin Allergy Intermediate Verified 09/30/23 21:03 codeine Allergy Intermediate Verified 09/30/23 20:58 Penicillins Allergy Intermediate Verified 09/30/23 20:58 Sulfa (Sulfonamide Allergy Intermediate Verified 09/30/23 20:58 Antibiotics) Exam Constitutional Vital Signs, click to edit/add: Last Vital Signs Temp 97.6 F 10/02/23 07:59 Pulse 96 H 10/02/23 09:05 Resp 25 H 10/02/23 07:01 BP 153/97 H 10/02/23 09:05 Pulse Ox 99 10/02/23 09:05 O2 Del Method Mechanical Ventilator 10/02/23 07:59 FiO2 30 10/02/23 07:01 Exam limitations: other limitations (Intubated) General appearance: patient mechanically ventilated Nutritional appearance: obese Orientation/consciousness: Yes other (sedated) HENMT Common normals: normocephalic and head/scalp atraumatic Nose: external nose normal External ear: external ears normal Neck & C-Spine Common normals: supple and no JVD Chest Chest: symmetrical chest wall rise Respiratory Common normals: clear to auscultation bilaterally Cardio Common normals: regular rate, regular rhythm, S1 normal heart sound, S2 normal heart sound, no gallops, no clicks and no murmurs GI Common normals: Normal to inspection, nondistended, normoactive bowel sounds present Extremity Common normals: no clubbing, cyanosis or edema and no pedal edema Results Labs and Meds Lab results: Cardiac Enzymes 10/02/23 Range/Units 04:26 AST 298 H (15-37) U/L Coagulation 10/01/23 Range/Units 11:00 PT 11.0 (9.0-11.6) sec APTT 30.2 (22.3-36.2) sec CBC 10/02/23 Range/Units 04:26 WBC 11.6 H (4.0-11.0) 10^3/uL RBC 4.59 L (4.70-6.10) 10^6/uL Hgb 14.2 (14.0-18.0) g/dL Hct 42.3 (42.0-54.0) % Plt Count 324 (150-450) 10^3/uL Neut # (Auto) 8.3 H (1.4-6.5) 10^3/uL Lymph # (Auto) 2.0 (1.2-3.8) 10^3/uL Nelson # (Auto) 1.2 H (0.3-0.8) 10^3/uL Eos # (Auto) 0.0 (0.0-0.7) 10^3/uL Baso # (Auto) 0.0 (0.0-0.1) 10^3/uL Comprehensive Metabolic Panel 10/02/23 Range/Units 04:26 Sodium 137 (136-145) mmol/L Potassium 3.6 (3.5-5.1) mmol/L Chloride 102 (98-107) mmol/L Carbon Dioxide 26.6 (21.0-32.0) mmol/L BUN 13.0 (7.0-18.0) mg/dL Creatinine 1.08 (0.70-1.30) mg/dL Glucose 151 H (74-106) mg/dL Calcium 8.5 (8.5-10.1) mg/dL AST 298 H (15-37) U/L ALT 77 H (16-63) U/L Alkaline Phosphatase 86 (46-116) U/L Total Protein 7.3 (6.4-8.2) g/dL Albumin 3.4 (3.4-5.0) g/dL Intake and Output 10/01/23 10/02/23 10/02/23 23:59 07:59 15:59 Intake Total 421.783 / 2739.558 1639.900 / 2739.558 656.513 / 656.513 Output Total 650 / 650 Balance 421.783 / 2089.558 989.900 / 2089.558 656.513 / 656.513 Intake: Tube Feeding 460 / 460 Tube Irrigant 200 / 200 IV 421.783 / 2279.558 1179.900 / 2279.558 456.513 / 456.513 0.9 % Sodium Chloride 1,000 ml 686.667 / 686.667 313.333 / 313.333 @ 50 mls/hr IV .Q20H [facility] Rx#: [id number] Ceftazidime 2,000 mg In 0.9 % 100 / 200 100 / 200 100 / 100 Sodium Chloride 100 ml @ 200 mls/hr IV Q8H [facility] Rx#:[id number] Midazolam HCl 100 mg In 0.9 % 21.783 / 21.783 Sodium Chloride 80 ml @ 1 MG/HR 1 mls/hr IV Q24H [facility] Rx#: [id number] Propofol 1,000 mg In 100 ml @ 300.000 / 863.681 393.233 / 863.681 43.180 / 43.180 70 MCG/KG/MIN 49.728 mls/hr IV Q2H [facility] Rx#:[id number] Output: Urine Amount (Catheter) 650 / 650 Urethral 650 / 650 Other: Weight 118.4 kg Imaging and Cardiology Echo: report reviewed (10/02/2023: CONCLUSION: 1. Hyperdynamic left ventricular systolic function. EF is 75%. 2. Normal right ventricular size and systolic function. 3. Normal diastolic function. 4. No significant valvular dysfunction. 5. Mildly elevated right sided pressures.) ECG results: image reviewed EKG Interpretation EKG: sinus rhythm Assessment and Plan Assessment and Plan (1) Severe alcohol withdrawal with perceptual disturbances: (2) DTs (delirium tremens): (3) Acute hypoxic respiratory failure: (4) Aspiration pneumonia due to gastric secretions: Qualifiers: Laterality: left Lung location: lower lobe of lung Qualified Code(s): J69.0 - Pneumonitis due to inhalation of food and vomit (5) Acute congestive heart failure: Qualifiers: Heart failure type: unspecified Qualified Code(s): I50.9 - Heart failure, unspecified (6) Elevated troponin level: (7) YESSENIA (acute kidney injury): (8) Leukocytosis: Qualifiers: Leukocytosis type: unspecified Qualified Code(s): D72.829 - Elevated white blood cell count, unspecified (9) Laceration of fifth toe of right foot: Qualifiers: Encounter type: initial encounter Qualified Code(s): S91.114A - Laceration without foreign body of right lesser toe(s) without damage to nail, initial encounter (10) Bipolar 1 disorder: Plan -HsTroponin peaked at 99 and trended down to 52. -ECHO done today showing preserved/hyperdynamic function. -HsTroponin elevation likely type II secondary to ETOH withdrawal, YESSENIA, PNA. -No further cardiac testing needed at this time. Can consider a stress test as an outpatient unless patient develops sx's after he is extubated. Please let us know if any further questions or concerns. Thank you! Ирина Angulo APRN-COST ANALYST
[2023-10-02 09:50] LABS: INR 0.94; Partial Thromboplastin Time 29.6 sec (22.3-36.2)
[2023-10-02] MEDS: PROPOFOL 1,000 MG/100 ML VIAL 54.701 MG IV ×6 (10:49→20:12)
[2023-10-02 10:57] LABS: Mono Screen NEGATIVE (NEGATIVE)
[2023-10-02 12:45] LABS: Glucometer 120 mg/dL (74-106)
--- NOTE | 2023-10-02 13:21 | CM.NOTE ---
Rounds made with Dr. Torres, pt remains intubated and requiring increase in sedation. Dr. Lainez will continue to follow pt.
[2023-10-02] MEDS: MIDAZOLAM HCL 100 MG in 0.9 % SODIUM CHLORIDE 80 ML IV (14:12)
[2023-10-02] MEDS: ENOXAPARIN SODIUM 40 MG/0.4 ML SYRINGE SUBQ (16:08)
[2023-10-02 16:55] LABS: Glucometer 133 mg/dL (74-106)
--- NOTE | 2023-10-02 17:17 | PM.IMPN1 ---
Progress Note: A&P Assessment and Plan (1) Severe alcohol withdrawal with perceptual disturbances: Assessment and Plan: Severe alcohol withdrawal - intubated/sedated. On Versed and propofol. Titrate up versed for agitation/anxiety and/or withdrawal symptoms. (2) DTs (delirium tremens): Assessment and Plan: Titrate versed drip as needed. Will require another 24-48 hours of close monitoring. (3) Acute hypoxic respiratory failure: Assessment and Plan: sec to Asp PNA, Acute congestive HF. On Fortaz for aspiration PNA. Patient on ventilator currently. Acceptable gas exchange. No changes. Hold off extubation until medically stable and alcohol withdrawal symptoms are better controlled. Started on IV lasix 40 q12 as volume overload on exam. (4) Aspiration pneumonia due to gastric secretions: Assessment and Plan: on fortaz. F/u blood and urine cx. On ventilator. Will plan on extubation once alcohol withdrawal is better controlled. Qualifiers: Laterality: left Lung location: lower lobe of lung Qualified Code(s): J69.0 - Pneumonitis due to inhalation of food and vomit (5) Acute congestive heart failure: Assessment and Plan: Acute on chronic diastolic HF. Started on IV lasix 40 q12. Appears volume overload Qualifiers: Heart failure type: unspecified Qualified Code(s): I50.9 - Heart failure, unspecified (6) Elevated troponin level: Assessment and Plan: Trended down. No WMA. Likely T2 Demand ischemia (7) YESSENIA (acute kidney injury): Assessment and Plan: resolved (8) Leukocytosis: Assessment and Plan: improving Qualifiers: Leukocytosis type: unspecified Qualified Code(s): D72.829 - Elevated white blood cell count, unspecified (9) Laceration of fifth toe of right foot: Qualifiers: Encounter type: initial encounter Qualified Code(s): S91.114A - Laceration without foreign body of right lesser toe(s) without damage to nail, initial encounter (10) Bipolar 1 disorder: Assessment and Plan: C/w prozac, clonidine and olanzapine. Increased gabapentin to help some with alcohol withdrawal Plan If persistent and refractory symptoms, will consider adding IV phenobarbital tomorrow Internal Medicine - PN: Subj Subjective Interval history: Seen and examined. Intubated/sedated. No overnight events. Requiring increased dose of Versed for Alcohol withdrawal Exam Constitutional Vital Signs, click to edit/add: Last Vital Signs Temp 99.0 F 10/02/23 15:00 Pulse 100 H 10/02/23 15:49 Resp 22 10/02/23 16:54 BP 119/64 10/02/23 15:15 Pulse Ox 95 10/02/23 15:49 O2 Del Method Mechanical Ventilator 10/02/23 07:59 FiO2 30 10/02/23 15:12 Documenting provider has reviewed patient's vital signs: yes Exam limitations: altered mental status General appearance: anxious, diaphoretic and patient mechanically ventilated Nutritional appearance: obese Eye Common normals: PERRL, conjunctivae normal and no scleral icterus Respiratory Auscultation: clear to auscultation bilaterally and diminished lung sounds Other: Coarse breath sounds. No wheezing or rhonchi. Cardio Common normals: no JVD, S1 normal heart sound and S2 normal heart sound Rate: tachycardic Rhythm: regular rhythm GI Common normals: Normal to inspection, nondistended, normoactive bowel sounds present, soft to palpation, non-tender and no hepatosplenomegaly Extremity Common normals: normal to inspection and full ROM Neuro Common normals: moves all extremities, no focal motor deficits and no sensory deficits noted Sensorium/orientation: orientation impaired Other: Sedated, intubated. Psych Other: unable to obtain. Internal Medicine - PN: Obj Da Labs Labs: Laboratory Results - last 24 hr 10/01/23 10/02/23 10/02/23 17:31 04:26 04:38 WBC 11.6 H RBC 4.59 L Hgb 14.2 Hct 42.3 MCV 92.2 MCH 30.9 MCHC 33.6 RDW 12.6 Plt Count 324 MPV 10.4 Neut % (Auto) 71.7 Lymph % (Auto) 17.2 L Republic % (Auto) 10.4 Eos % (Auto) 0.2 L Baso % (Auto) 0.2 Neut # (Auto) 8.3 H Lymph # (Auto) 2.0 Republic # (Auto) 1.2 H Eos # (Auto) 0.0 Baso # (Auto) 0.0 Abs Immat Gran (auto) 0.03 Imm/Tot Granulo (auto) 0.3 PT INR APTT Puncture Site L radial ABG pH 7.402 ABG pCO2 40.0 ABG pO2 65.6 L ABG HCO3 24.8 ABG O2 Saturation 94.3 ABG Base Excess 0.1 Korey Test Positive Vent Mode Ac FiO2 30 Tidal Volume 500 Sodium 137 Potassium 3.6 Chloride 102 Carbon Dioxide 26.6 Anion Gap 12.0 BUN 13.0 Creatinine 1.08 Est GFR ( Amer) >60 Est GFR (Non-Af Amer) >60 BUN/Creatinine Ratio 12.0 Glucose 151 H Calcium 8.5 Total Bilirubin 0.4 AST 298 H ALT 77 H Alkaline Phosphatase 86 Troponin I High Sens 79.2 H* 52.0 Total Protein 7.3 Albumin 3.4 Globulin 3.9 Albumin/Globulin Ratio 0.9 Monoscreen POC Glucose 10/02/23 10/02/23 10/02/23 09:26 12:41 16:54 WBC RBC Hgb Hct MCV MCH MCHC RDW Plt Count MPV Neut % (Auto) Lymph % (Auto) Republic % (Auto) Eos % (Auto) Baso % (Auto) Neut # (Auto) Lymph # (Auto) Republic # (Auto) Eos # (Auto) Baso # (Auto) Abs Immat Gran (auto) Imm/Tot Granulo (auto) PT 10.0 INR 0.94 APTT 29.6 Puncture Site ABG pH ABG pCO2 ABG pO2 ABG HCO3 ABG O2 Saturation ABG Base Excess Korey Test Vent Mode FiO2 Tidal Volume Sodium Potassium Chloride Carbon Dioxide Anion Gap BUN Creatinine Est GFR ( Amer) Est GFR (Non-Af Amer) BUN/Creatinine Ratio Glucose Calcium Total Bilirubin AST ALT Alkaline Phosphatase Troponin I High Sens Total Protein Albumin Globulin Albumin/Globulin Ratio Monoscreen Negative POC Glucose 120 H 133 H Urinary Catheter Management Urinary Catheter Management Urethral: Cath placed during this visit: yes Urethral indwelling: Yes Reason for continuing: ICU pt on diuretics Insertion date: 10/01/23 Insertion time: 09:10
[2023-10-02] MEDS: FUROSEMIDE 40 MG/4 ML VIAL IVP (17:38)
[2023-10-02] MEDS: CLONIDINE HCL 0.1 MG TABLET PO (22:11)
[2023-10-02] MEDS: SENNOSIDES 8.6 MG TABLET PO (22:12)
[2023-10-02] MEDS: PROPOFOL 1,000 MG/100 ML VIAL 56.832 MG IV (22:12)
[2023-10-02] MEDS: POLYETHYLENE GLYCOL 3350 17 GM POWDER PACKET PO (22:12)
[2023-10-02] MEDS: GABAPENTIN 300 MG CAPSULE PO (22:12)
[2023-10-03] VITALS (75 sets, daily range): BP systolic 109–147; BP diastolic 62–95; PULSE 66–112; RESP 19–26; TEMP 36.9–38.8; O2SAT 80–100
[2023-10-03] MEDS: PROSTAT 15 GM PROTEIN/100 CAL 30 ML LIQUID PACKET PO ×4 (00:28→17:42)
[2023-10-03] MEDS: PROPOFOL 1,000 MG/100 ML VIAL 49.728 MG IV (00:29)
[2023-10-03] MEDS: CEFTAZIDIME 2,000 MG in 0.9 % SODIUM CHLORIDE 100 ML 100 MG IV ×2 (00:30→09:04)
[2023-10-03 01:01] LABS: Glucometer 140 mg/dL (74-106)
[2023-10-03] MEDS: MIDAZOLAM HCL 100 MG in 0.9 % SODIUM CHLORIDE 80 ML 11 MG IV (02:01)
[2023-10-03] MEDS: PROPOFOL 1,000 MG/100 ML VIAL 39.072 MG IV (02:44)
[2023-10-03] MEDS: IPRATROPIUM/ALBUTEROL SULFATE 3 ML AMPUL.NEB IH ×4 (03:59→20:07)
[2023-10-03 04:42] LABS: Basophils Percent Auto 0.2 % (0.2-2.0); Eosinophils Absolute Auto 0.1 10^3/uL (0.0-0.7); Eosinophils Percent Auto 0.8 % (0.9-7.0); Hematocrit 37.6 % (42.0-54.0); Hemoglobin 12.4 g/dL (14.0-18.0); Immature Granulocytes Abs Auto 0.03 10^3/uL (0.00-0.03); Immature Granulocytes Pct Auto 0.3 % (0.0-0.5); Lymphocytes Absolute Auto 1.7 10^3/uL (1.2-3.8); Lymphocytes Percent Auto 17.2 % (20.5-60.0); Mean Platelet Volume 9.9 fL (9.5-13.5); Monocytes Absolute Auto 1.2 10^3/uL (0.3-0.8); Monocytes Percent Auto 11.6 % (1.7-12.0); Neutrophils Percent Auto 69.9 % (43.0-75.0); Platelet Count 268 10^3/uL (150-450); Red Blood Count 4.13 10^6/uL (4.70-6.10); Red Cell Distribution Width 12.5 % (11.0-15.0)
[2023-10-03 04:46] LABS: Allen Test POSITIVE (POSITIVE); Base Excess ABG 6.3 mmol/L (-2.0-2.0); Fractionated Inspired Oxygen 30 %; HCO3 ABG 30.5 mmol/L (22.0-26.0); O2 Mode VENTILATOR; Oxygen Saturation ABG 95.9 %; PO2 ABG 70.9 mmHg (80.0-100.0); Puncture Site L RADIAL; Rate 12; Vent Mode A/C; pH ABG 7.439 (7.350-7.450)
[2023-10-03 04:47] LABS: Tidal Volume 500
[2023-10-03 05:09] LABS: Alanine Aminotransferase 58 U/L (16-63); Albumin Globulin Ratio 0.7; Albumin Level 2.9 g/dL (3.4-5.0); Alkaline Phosphatase 76 U/L (46-116); Anion Gap 11.3; Aspartate Amino Transferase 168 U/L (15-37); BUN Creatinine Ratio 14.4; Bilirubin Total 0.4 mg/dL (0.2-1.0); Calcium 8.6 mg/dL (8.5-10.1); Carbon Dioxide 29.3 mmol/L (21.0-32.0); Chloride 100 mmol/L (98-107); Estimated GFR (African America >60 (>=60); Estimated GFR (Non-African Ame >60 (>=60); Globulin 3.9 g/dL; Glucose 143 mg/dL (74-106); Potassium 3.6 mmol/L (3.5-5.1); Sodium 137 mmol/L (136-145); Total Protein 6.8 g/dL (6.4-8.2)
[2023-10-03] MEDS: PROPOFOL 1,000 MG/100 ML VIAL 28.416 MG IV ×2 (06:00→06:09)
--- NOTE | 2023-10-03 06:00 | XR_ITS ---
The [address] [address] Patient Name: KANDICE POLANCO MRN: [id number] date: 1980 Sex: M Assigned Patient Location: ICU Current Patient Location: ICU Accession/Order Number: [id number] Exam Date: 10/03/2023 05:50 Report Date: 10/03/2023 06:16 At the request of: SHAIKH LONDON Procedure: XR chest 1V EXAM: XR chest 1V HISTORY: Ventilator COMPARISON: 10/02/2023 TECHNIQUE: Portable FINDINGS: LUNGS: Endotracheal tube tip is 3.9 cm above the roxi. Low lung volumes. Slight progression of left basilar infiltrate obscuring the hemidiaphragm. The right lung is clear VASCULATURE: No increased pulmonary vasculature. PLEURA: No pneumothorax, effusion, or pleural thickening. CARDIAC: No cardiomegaly or cardiac silhouette abnormality. MEDIASTINUM: No visible mass or adenopathy. BONES: No fracture or visible bone lesion. OTHER: Negative. XR/XR chest 1V IMPRESSION: Slight progression of left basilar infiltrate Electronically authenticated by: CORRINA PIZARRO Date: 10/03/2023 06:16
[2023-10-03] MEDS: GABAPENTIN 300 MG CAPSULE PO ×3 (06:01→21:48)
[2023-10-03] MEDS: FUROSEMIDE 40 MG/4 ML VIAL IVP ×2 (06:01→17:42)
[2023-10-03] MEDS: PANTOPRAZOLE SODIUM 40 MG VIAL IV (06:04)
[2023-10-03 06:18] LABS: Glucometer 128 mg/dL (74-106)
[2023-10-03 08:11] LABS: HBsAg Screen Negative (Negative); HCV Ab Non Reactive (Non Reactive); Hep A Ab, IgM Negative (Negative); Hep B Core Ab, IgM Negative (Negative)
[2023-10-03] MEDS: PROPOFOL 1,000 MG/100 ML VIAL 26.995 MG IV (08:39)
[2023-10-03] MEDS: CLONIDINE HCL 0.1 MG TABLET PO (08:40)
[2023-10-03] MEDS: FLUOXETINE HCL 10 MG CAPSULE PO (08:40)
[2023-10-03] MEDS: FOLIC ACID 1 MG TABLET PO (08:46)
[2023-10-03] MEDS: THIAMINE MONONITRATE (VIT B1) 100 MG TABLET PO (08:48)
--- NOTE | 2023-10-03 08:48 | P.PN_ITS ---
Progress Note: Subjective Subjective Interval history: Seen and examined. Intubated/sedated. No overnight events. Requiring increased dose of Versed and propofol yesterday, for Alcohol withdrawal/DT's. 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 Good urine output. ABG stable and chest X-ray stable. Exam Narrative Exam Narrative: General: patient is intubated and sedated EYES: PERRLA Skin: right 5th digit laceration not actively bleeding, sutures intact Head: atraumatic, acephalic Heart: Normal rate and rhythm, no murmurs/rubs/gallops Lungs: no audible wheezes, crackles and normal breath sounds all lung armstrong Abdomen: Normal audible bowel sounds, no distension, No palpable masses, no organomegaly, no rebound/guarding/ or rigidity, central obesity Musculoskeletal: no swelling bilateral lower extremities, moving all 4 extremities Constitutional Vital Signs, click to edit/add: Last Vital Signs Temp 97.8 F 10/02/23 19:00 Pulse 89 10/03/23 06:00 Resp 22 10/03/23 05:00 BP 113/72 10/03/23 06:01 Pulse Ox 96 10/03/23 06:00 O2 Del Method Mechanical Ventilator 10/03/23 03:59 FiO2 30 10/03/23 06:00 Progress Note: Objective Labs Labs: Short CBC 10/03/23 Range/Units 04:24 WBC 10.0 (4.0-11.0) 10^3/uL Hgb 12.4 L (14.0-18.0) g/dL Hct 37.6 L (42.0-54.0) % Plt Count 268 (150-450) 10^3/uL BMP 10/03/23 04:24 Sodium 137 Potassium 3.6 Chloride 100 Carbon Dioxide 29.3 BUN 13.0 Creatinine 0.90 Glucose 143 H Calcium 8.6 Liver Function 10/03/23 Range/Units 04:24 Total Bilirubin 0.4 (0.2-1.0) mg/dL AST 168 H (15-37) U/L ALT 58 (16-63) U/L Alkaline Phosphatase 76 (46-116) U/L Albumin 2.9 L (3.4-5.0) g/dL Progress Note: A&P Assessment and Plan (1) Severe alcohol withdrawal with perceptual disturbances: Assessment and Plan: Chest x-ray showed good placement of ET tube this morning, ABG's show acceptable vent settings. Patient is currently on propofol and Versed drips. Dr. Lainez is managing vent settings and adjustments. I appreciate his input. (2) DTs (delirium tremens): Assessment and Plan: Continue Versed. May need to add back Precedex if needed. Hopeful trial off sedation in the next 24 hours, but discussion today about tertiary care center as he is going to need a dedicated ICU/CC team potentially, and also possible Neuro and Psychiatry once extubated of which we do not provide here. I have attempted to contact mom without success. He has been admitted at [facility] prior. Will continue discussions. (3) Acute hypoxic respiratory failure: Assessment and Plan: Viral cultures negative, concern for possible aspiration PNA, continue Invanz and Flagyl, leukocytosis improving. Strep and mono negative. Could also have b een severe DT's with possible seizure? (4) Aspiration pneumonia due to gastric secretions: Assessment and Plan: possibly causing #3, continue invanz and flagyl Qualifiers: Laterality: left Lung location: lower lobe of lung Qualified Code(s): J69.0 - Pneumonitis due to inhalation of food and vomit (5) Acute congestive heart failure: Assessment and Plan: Normal Echo, chest X-ray showing left pleural effusions but improving. continue lasix. good Urine output Qualifiers: Heart failure type: unspecified Qualified Code(s): I50.9 - Heart failure, unspecified (6) Elevated troponin level: Assessment and Plan: most likely type 2 NSTEMI, trop down to normal range, vitals stable, Echocardiogram showed normal EF. Cards consult no additional input (7) YESSENIA (acute kidney injury): Assessment and Plan: resolved. (8) Leukocytosis: Qualifiers: Leukocytosis type: unspecified Qualified Code(s): D72.829 - Elevated white blood cell count, unspecified (9) Laceration of fifth toe of right foot: Qualifiers: Encounter type: initial encounter Qualified Code(s): S91.114A - Laceration without foreign body of right lesser toe(s) without damage to nail, initial encounter (10) Bipolar 1 disorder: Assessment and Plan: will hold home medications while patient is intubated and sedated Plan patient is a full code Lovenox for deep vein thrombosis prophylaxis low threshold for transfer with worsening status changes, hopeful wean tomorrow. Urinary Catheter Management Urinary Catheter Management Urethral: Cath placed during this visit: yes Urethral indwelling: Yes Reason for continuing: ICU pt on diuretics Insertion date: 10/01/23 Insertion time: 09:10
[2023-10-03 09:03] LABS: Triglycerides 359 mg/dL (<=150)
[2023-10-03] MEDS: JEVITY 1.5 CAL 237 ML LIQUID FEED TUBE (09:05)
[2023-10-03] MEDS: MIDAZOLAM HCL 100 MG in 0.9 % SODIUM CHLORIDE 80 ML 9 MG IV (12:03)
[2023-10-03 12:17] LABS: Glucometer 120 mg/dL (74-106)
--- NOTE | 2023-10-03 12:59 | PM.IMPN1 ---
Progress Note: A&P Assessment and Plan (1) Severe alcohol withdrawal with perceptual disturbances: Assessment and Plan: Severe alcohol withdrawal - intubated/sedated. On Versed and propofol. Doing better today. Sedation being titrated down. Anticipate that he will ready for extubation within 24-48 hours if we are able to get him off of sedation if he continues to clinically improve and progress at this rate. (2) DTs (delirium tremens): Assessment and Plan: Titrate versed drip as needed. Improving. (3) Acute hypoxic respiratory failure: Assessment and Plan: sec to Asp PNA, Acute congestive HF. On Fortaz for aspiration PNA. Patient on ventilator currently. Acceptable gas exchange. No changes. Hold off extubation until medically stable and alcohol withdrawal symptoms are better controlled. Flagyl added for anaerobic coverage. (4) Aspiration pneumonia due to gastric secretions: Assessment and Plan: on fortaz. F/u blood and urine cx. On ventilator. Will plan on extubation once alcohol withdrawal is better controlled. Added flagyl for anerobic coverage. Qualifiers: Laterality: left Lung location: lower lobe of lung Qualified Code(s): J69.0 - Pneumonitis due to inhalation of food and vomit (5) Acute congestive heart failure: Assessment and Plan: Acute on chronic diastolic HF. Started on IV lasix 40 q12. Good UO, about 2500 ml UO overnight. Still volume overload on exam. C/w lasix. Qualifiers: Heart failure type: unspecified Qualified Code(s): I50.9 - Heart failure, unspecified (6) Elevated troponin level: Assessment and Plan: Trended down. No WMA. Likely T2 Demand ischemia (7) YESSENIA (acute kidney injury): Assessment and Plan: resolved (8) Leukocytosis: Assessment and Plan: improving Qualifiers: Leukocytosis type: unspecified Qualified Code(s): D72.829 - Elevated white blood cell count, unspecified (9) Laceration of fifth toe of right foot: Assessment and Plan: wound care. Qualifiers: Encounter type: initial encounter Qualified Code(s): S91.114A - Laceration without foreign body of right lesser toe(s) without damage to nail, initial encounter (10) Bipolar 1 disorder: Assessment and Plan: C/w prozac, clonidine and olanzapine. Gabapentin was increased yesterday. l Plan Seems to be clinically improving gradually. C/w current treatment. Wean off Propofol and versed as tolerated. Internal Medicine - PN: Subj Subjective Interval history: Seen and examined. Doing well. No overnight events. Able to wean off sedation today gradually. Good UO overnight on Lasix Exam Constitutional Vital Signs, click to edit/add: Last Vital Signs Temp 98.4 F 10/03/23 12:00 Pulse 92 H 10/03/23 12:00 Resp 22 10/03/23 12:52 BP 136/77 10/03/23 12:00 Pulse Ox 98 10/03/23 12:00 O2 Del Method Mechanical Ventilator 10/03/23 03:59 FiO2 30 10/03/23 08:00 Documenting provider has reviewed patient's vital signs: yes Exam limitations: altered mental status General appearance: anxious, diaphoretic and patient mechanically ventilated Nutritional appearance: obese Respiratory Auscultation: clear to auscultation bilaterally and diminished lung sounds Other: Coarse breath sounds. No wheezing or rhonchi. Cardio Common normals: no JVD, S1 normal heart sound and S2 normal heart sound Rate: tachycardic Rhythm: regular rhythm Neuro Common normals: moves all extremities, no focal motor deficits and no sensory deficits noted Sensorium/orientation: orientation impaired Other: Sedated, intubated. Psych Other: unable to obtain. Internal Medicine - PN: Obj Da Labs Labs: Laboratory Results - last 24 hr 10/02/23 10/02/23 10/03/23 09:26 16:54 00:50 WBC RBC Hgb Hct MCV MCH MCHC RDW Plt Count MPV Neut % (Auto) Lymph % (Auto) [place] % (Auto) Eos % (Auto) Baso % (Auto) Neut # (Auto) Lymph # (Auto) [place] # (Auto) Eos # (Auto) Baso # (Auto) Abs Immat Gran (auto) Imm/Tot Granulo (auto) Puncture Site ABG pH ABG pCO2 ABG pO2 ABG HCO3 ABG O2 Saturation ABG Base Excess Korey Test Vent Mode FiO2 Tidal Volume Sodium Potassium Chloride Carbon Dioxide Anion Gap BUN Creatinine Est GFR ( Amer) Est GFR (Non-Af Amer) BUN/Creatinine Ratio Glucose Calcium Total Bilirubin AST ALT Alkaline Phosphatase Total Protein Albumin Globulin Albumin/Globulin Ratio Triglycerides Hepatitis A IgM Ab Negative Hep Bs Antigen Negative Hep B Core IgM Ab Negative Hepatitis C Antibody Non reactive Hepatitis C Interp Comment POC Glucose 133 H 140 H 10/03/23 10/03/23 10/03/23 04:24 04:33 06:07 WBC 10.0 RBC 4.13 L Hgb 12.4 L Hct 37.6 L MCV 91.0 MCH 30.0 MCHC 33.0 RDW 12.5 Plt Count 268 MPV 9.9 Neut % (Auto) 69.9 Lymph % (Auto) 17.2 L [place] % (Auto) 11.6 Eos % (Auto) 0.8 L Baso % (Auto) 0.2 Neut # (Auto) 7.0 H Lymph # (Auto) 1.7 [place] # (Auto) 1.2 H Eos # (Auto) 0.1 Baso # (Auto) 0.0 Abs Immat Gran (auto) 0.03 Imm/Tot Granulo (auto) 0.3 Puncture Site L radial ABG pH 7.439 ABG pCO2 45.0 ABG pO2 70.9 L ABG HCO3 30.5 H ABG O2 Saturation 95.9 ABG Base Excess 6.3 H Korey Test Positive Vent Mode A/c FiO2 30 Tidal Volume 500 Sodium 137 Potassium 3.6 Chloride 100 Carbon Dioxide 29.3 Anion Gap 11.3 BUN 13.0 Creatinine 0.90 Est GFR ( Amer) >60 Est GFR (Non-Af Amer) >60 BUN/Creatinine Ratio 14.4 Glucose 143 H Calcium 8.6 Total Bilirubin 0.4 AST 168 H ALT 58 Alkaline Phosphatase 76 Total Protein 6.8 Albumin 2.9 L Globulin 3.9 Albumin/Globulin Ratio 0.7 Triglycerides 359 H Hepatitis A IgM Ab Hep Bs Antigen Hep B Core IgM Ab Hepatitis C Antibody Hepatitis C Interp POC Glucose 128 H 10/03/23 12:16 WBC RBC Hgb Hct MCV MCH MCHC RDW Plt Count MPV Neut % (Auto) Lymph % (Auto) [place] % (Auto) Eos % (Auto) Baso % (Auto) Neut # (Auto) Lymph # (Auto) [place] # (Auto) Eos # (Auto) Baso # (Auto) Abs Immat Gran (auto) Imm/Tot Granulo (auto) Puncture Site ABG pH ABG pCO2 ABG pO2 ABG HCO3 ABG O2 Saturation ABG Base Excess Korey Test Vent Mode FiO2 Tidal Volume Sodium Potassium Chloride Carbon Dioxide Anion Gap BUN Creatinine Est GFR ( Amer) Est GFR (Non-Af Amer) BUN/Creatinine Ratio Glucose Calcium Total Bilirubin AST ALT Alkaline Phosphatase Total Protein Albumin Globulin Albumin/Globulin Ratio Triglycerides Hepatitis A IgM Ab Hep Bs Antigen Hep B Core IgM Ab Hepatitis C Antibody Hepatitis C Interp POC Glucose 120 H Urinary Catheter Management Urinary Catheter Management Urethral: Cath placed during this visit: yes Urethral indwelling: Yes Reason for continuing: measure accurate output Insertion date: 10/01/23 Insertion time: 09:10
--- NOTE | 2023-10-03 13:36 | CM.NOTE ---
Rounds made with Dr. Torres, pt continues on ventilator and attempting to wean sedation. Dr. Lainez following for ventilator management.
[2023-10-03] MEDS: PROPOFOL 1,000 MG/100 ML VIAL 10.656 MG IV ×2 (14:36→16:20)
[2023-10-03] MEDS: ENOXAPARIN SODIUM 40 MG/0.4 ML SYRINGE SUBQ (16:16)
[2023-10-03] MEDS: CEFTAZIDIME 2,000 MG in 0.9 % SODIUM CHLORIDE 100 ML 200 MG IV (16:17)
[2023-10-03] MEDS: ACETAMINOPHEN 325 MG TABLET 650 MG PO ×2 (16:17→21:48)
[2023-10-03 17:44] LABS: Glucometer 106 mg/dL (74-106)
--- NOTE | 2023-10-03 18:45 | PC.NURSE ---
Spoke with Dr. Garrett Torres. Concerns of Propofol-Related Infusion Syndrome related to use of propofol on patient. Currently patient is sedated to a Ivor score of 3 and is able to follow simple commands with responses and actions. Verbal orders were given to not increase Propofol or Versed but to add Precedex to patient's sedation if he requires higher sedation needs throughout the night, see MISC order. Max rate of propofol is not to exceed 25 mcg/kg/min and versed is not to exceed 6 mg/hr.
--- NOTE | 2023-10-03 19:19 | PM.DS1 ---
DS: Providers Provider Date of admission: 10/01/23 12:00 Primary care physician: JUANITA KAYE Attending physician on admission: Shannon Torres Consults: 10/02/23 Consult to Cardiology Routine Reason for consultation: elevated trops Discharging clinician: Shannon Torres DS: Diagnosis Discharge Diagnosis (1) Severe alcohol withdrawal with perceptual disturbances: (2) DTs (delirium tremens): (3) Acute hypoxic respiratory failure: (4) Aspiration pneumonia due to gastric secretions: Qualifiers: Laterality: left Lung location: lower lobe of lung Qualified Code(s): J69.0 - Pneumonitis due to inhalation of food and vomit (5) Acute congestive heart failure: Qualifiers: Heart failure type: unspecified Qualified Code(s): I50.9 - Heart failure, unspecified (6) Elevated troponin level: (7) YESSENIA (acute kidney injury): (8) Leukocytosis: Qualifiers: Leukocytosis type: unspecified Qualified Code(s): D72.829 - Elevated white blood cell count, unspecified (9) Laceration of fifth toe of right foot: Qualifiers: Encounter type: initial encounter Qualified Code(s): S91.114A - Laceration without foreign body of right lesser toe(s) without damage to nail, initial encounter (10) Bipolar 1 disorder: DS: Summary Hospital Course Hospital Course: please see progress note dated 10/03/23. Patient did not tolerate weaning of Versed today. Due to concern of propofol infusion syndrome and we do not have a dedicated ICU/CC doctor, neurology, psychiatry, cardiology patient will be transferred to higher level of care at [facility] to MICU. I am concerned about possible alcohol withdrawal seizures as well and he will need possible EEG monitoring, MRI of the brain and just overall more care than we are able to provide at the [facility] with limited resources. Time Spent with Patient Time attestation: Total time spent providing and/or coordinating discharge services: Exam Narrative Exam Narrative: see exam in progress note dated 10/03/23 patient will be transferred intubated and sedated Constitutional Vital Signs, click to edit/add: Last Vital Signs Temp 100.5 F H 10/03/23 17:35 Pulse 108 H 10/03/23 17:56 Resp 22 10/03/23 17:00 BP 139/92 H 10/03/23 14:30 Pulse Ox 96 10/03/23 17:56 O2 Del Method Mechanical Ventilator 10/03/23 15:18 FiO2 30 10/03/23 15:18 DS: Data Data Completed and Pending Labs on day of discharge: Labs from last 24 hours 10/03/23 10/03/23 10/03/23 17:41 12:16 06:07 WBC RBC Hgb Hct MCV MCH MCHC RDW Plt Count MPV Neut % (Auto) Lymph % (Auto) [place] % (Auto) Eos % (Auto) Baso % (Auto) Neut # (Auto) Lymph # (Auto) [place] # (Auto) Eos # (Auto) Baso # (Auto) Abs Immat Gran (auto) Imm/Tot Granulo (auto) Puncture Site ABG pH ABG pCO2 ABG pO2 ABG HCO3 ABG O2 Saturation ABG Base Excess Korey Test Vent Mode FiO2 Tidal Volume Sodium Potassium Chloride Carbon Dioxide Anion Gap BUN Creatinine Est GFR ( Amer) Est GFR (Non-Af Amer) BUN/Creatinine Ratio Glucose Calcium Total Bilirubin AST ALT Alkaline Phosphatase Total Protein Albumin Globulin Albumin/Globulin Ratio Triglycerides Hepatitis A IgM Ab Hep Bs Antigen Hep B Core IgM Ab Hepatitis C Antibody Hepatitis C Interp POC Glucose 106 120 H 128 H 10/03/23 10/03/23 10/03/23 04:33 04:24 00:50 WBC 10.0 RBC 4.13 L Hgb 12.4 L Hct 37.6 L MCV 91.0 MCH 30.0 MCHC 33.0 RDW 12.5 Plt Count 268 MPV 9.9 Neut % (Auto) 69.9 Lymph % (Auto) 17.2 L [place] % (Auto) 11.6 Eos % (Auto) 0.8 L Baso % (Auto) 0.2 Neut # (Auto) 7.0 H Lymph # (Auto) 1.7 [place] # (Auto) 1.2 H Eos # (Auto) 0.1 Baso # (Auto) 0.0 Abs Immat Gran (auto) 0.03 Imm/Tot Granulo (auto) 0.3 Puncture Site L radial ABG pH 7.439 ABG pCO2 45.0 ABG pO2 70.9 L ABG HCO3 30.5 H ABG O2 Saturation 95.9 ABG Base Excess 6.3 H Korey Test Positive Vent Mode A/c FiO2 30 Tidal Volume 500 Sodium 137 Potassium 3.6 Chloride 100 Carbon Dioxide 29.3 Anion Gap 11.3 BUN 13.0 Creatinine 0.90 Est GFR ( Amer) >60 Est GFR (Non-Af Amer) >60 BUN/Creatinine Ratio 14.4 Glucose 143 H Calcium 8.6 Total Bilirubin 0.4 AST 168 H ALT 58 Alkaline Phosphatase 76 Total Protein 6.8 Albumin 2.9 L Globulin 3.9 Albumin/Globulin Ratio 0.7 Triglycerides 359 H Hepatitis A IgM Ab Hep Bs Antigen Hep B Core IgM Ab Hepatitis C Antibody Hepatitis C Interp POC Glucose 140 H 10/02/23 09:26 WBC RBC Hgb Hct MCV MCH MCHC RDW Plt Count MPV Neut % (Auto) Lymph % (Auto) [place] % (Auto) Eos % (Auto) Baso % (Auto) Neut # (Auto) Lymph # (Auto) [place] # (Auto) Eos # (Auto) Baso # (Auto) Abs Immat Gran (auto) Imm/Tot Granulo (auto) Puncture Site ABG pH ABG pCO2 ABG pO2 ABG HCO3 ABG O2 Saturation ABG Base Excess Korey Test Vent Mode FiO2 Tidal Volume Sodium Potassium Chloride Carbon Dioxide Anion Gap BUN Creatinine Est GFR ( Amer) Est GFR (Non-Af Amer) BUN/Creatinine Ratio Glucose Calcium Total Bilirubin AST ALT Alkaline Phosphatase Total Protein Albumin Globulin Albumin/Globulin Ratio Triglycerides Hepatitis A IgM Ab Negative Hep Bs Antigen Negative Hep B Core IgM Ab Negative Hepatitis C Antibody Non reactive Hepatitis C Interp Comment POC Glucose Preliminary micro results at discharge 10/01/23 11:08 - Preliminary Blood NO GROWTH AT 36-48 HOURS. FINAL TO FOLLOW. 10/01/23 11:00 - Preliminary Blood NO GROWTH AT 36-48 HOURS. FINAL TO FOLLOW. Discharge Plan Discharge Disposition: [facility] Discharge location: Transfer to [facility] ICU- Dr. Zamora accepting physician
[2023-10-03] MEDS: MIDAZOLAM HCL 2 MG/2 ML VIAL IV ×2 (19:49→21:47)
== END 2023-10-03 22:00 | disposition short-term general hospital (02) | DRG 775 ==
LOC: ER 10-01 00:30 → ICU 10-01 00:51
PROVIDERS: Internal Medicine; Nurse Practitioner Acute Care; Admitting Provider Family Medicine; Emergency Provider Internal Medicine; PCP Family Medicine; Visit Provider Family Medicine
DX: F10.232 Alcohol dependence with withdrawal with perceptual disturbance (principal); J96.01 Acute respiratory failure with hypoxia; J69.0 Pneumonitis due to inhalation of food and vomit; I11.0 Hypertensive heart disease with heart failure; I50.33 Acute on chronic diastolic (congestive) heart failure; I21.A1 Myocardial infarction type 2; N17.9 Acute kidney failure, unspecified; D72.829 Elevated white blood cell count, unspecified; R79.89 Other specified abnormal findings of blood chemistry; R82.5 Elevated urine levels of drugs, medicaments and biological substances; F31.9 Bipolar disorder, unspecified; F41.9 Anxiety disorder, unspecified; F17.200 Nicotine dependence, unspecified, uncomplicated; S91.114A Laceration without foreign body of right lesser toe(s) without damage to nail, initial encounter; Z79.899 Other long term (current) drug therapy; Z78.1 Physical restraint status; Z88.1 Allergy status to other antibiotic agents; Z88.5 Allergy status to narcotic agent; Z88.0 Allergy status to penicillin; Z88.2 Allergy status to sulfonamides
CPT/HCPCS: 0202U; 12001; 36415; 36600; 51702; 70450; 71045; 72125; 73630; 76705; 80053; 80074; 80179; 80307; 80320; 80329; 81001; 81003; 82805; 82948; 83605; 83735; 84478; 84484; 85025; 85610; 85730; 86308; 87040; 87070; 87880; 93005; 93306; 94002; 94003; 94640; 94761; 96365; 96366; 96368; 96372; 96375; 96376; 99285; J0330; J0690; J0713; J1200; J1630; J1650; J1940; J2060; J2250; J2704; J3486

== ENCOUNTER 2024-03-06 07:10 | Outpatient (OUT) | payer OTHER, SELFPAY ==
--- OUTSIDE RECORDS SUMMARY | 2024-03-06 07:16 | XMS_ITS ---
Patient Summarization (C-CDA 2.1 CCD) Created on: March 06, 2024 KANDICE POLANCO : 1980 Sex: Male Author Organization Sample organization Care Team Providers Care Communications Attendant Name Role Phone Shakeel Kaye Primary Care Provider MISC, DR NAIDU Attending Unavailable FURLONG, DR SHAKEEL Hernandez Primary Care Unavailable MISC, DR NAIDU Consulting Unavailable MISC, DR NAIDU Admitting Unavailable MISC, DOCTOR Attending Unavailable MISC, DR NAIDU Consulting Unavailable FURLONG, DR SHAKEEL Hernandez Primary Care Unavailable MISC, DR NAIDU Admitting Unavailable MISC, DR NAIDU Attending Unavailable FURLONG, DR SHAKEEL Hernandez Primary Care Unavailable MISC, DR NAIDU Admitting Unavailable REINECK, DR RILEY Hernandez Attending Unavailabl e REINECK, DR RILEY Hernandez Consulting Unavailabl e FURLONG, DR SHAKEEL Hernandez Primary Care Unavailable REINECK, DR RILEY Hernandez Admitting Unavailabl e ZIEBER, DR LISA Cosme Consulting Unavailable Elizabeth Dempsey Unavailable DO Lee Mtz Primary Care Provider MD Elizabeth Dempsey Attending Provider DO Lee Mtz Primary Care Provider [phone] MD Elizabeth Dempsey Attending Provider MD Jonathan Workman Attending Provider DO Shakeel Kaye Primary Care Provider Jonathan Workman Unavailable DO Shakeel Kaye Primary Care Provider MD Jonathan Workman Attending Provider DO Mervin Palencai Emergency Provider [phone] MD William Vann Admit Provider MD William Vann Attending Provider JIMENEZ GASPAR Admitting Unavailable MAGDALENE GILLILAND Consulting Unavailable KEVINLONG, SHAKEEL SERVIN Primary Care Unavailab FLORENCIO Chavarria Attending Unavailable NOREEN REYES Admitting Unavailable FURLONG, SHAKEEL SERVIN Primary Care Unavailab DEWEY Clifford Attending Unavailable PCP, Other Primary Care Physician KevinsandiDO Shakeel jackson Primary Care Provider MD Dwain Vann Admit Provider MD Dwain Vann Attending Provider [phone] MIRI Torres Emergency Provider [phone] MD Juan Fajardomi Admit Provider MD Bradford Fajardo Attending Provider [phone] Unavailable Primary Care Provider Unavailabl e Kevinria Shakeel HOLGUIN Primary Care Provider [phone] KEVINRIASHAKEEL G Referring Unavailable KEVINLONG, SHAKEEL G Primary Care Unavailable Soo, Dwain Admitting Unavailab le Dwain Vann Attending Unavailab le Furlong, Shakeel Primary Care Unavailable Soo, Dwain Admitting Unavailab le Soo Dwain Attending Unavailab le Furlong, Shakeel Primary Care Unavailable Bradford Fajardo Admitting Unavailable SooShonnaDwain Attending Unavailab le Furlong, Shakeel Primary Care Unavailable Jonathan Workman Admitting Unavailable Jonathan Workman Attending Unavailable Furlong, Shakeel Primary Care Unavailable MANDIJULI Banks Admitting Unavailable LUCA, SHANNON Referring Unavailable FURLONG, SHAKEEL G Primary Care Unavailable ORION ABRAHAM Consulting Unavailable KATRINA JOE Attending Unavailable GUILLERMINA HARRIS Consulting Unavailable TALCHIARA CARTER Consulting Unavailable FATOUMATA LONDON Consulting Unavailable NI VILLEGAS Consulting Unavailable ALI, DANTE MICHEL Consulting Unavailable NILS SESAY Consulting Unavailable CLIFFORD TOURE Consulting Unavailable MACKENZIE AGUDELO Consulting Unavailable GEORGE BLEU Attending Unavailable GEORGE BLUE Referring Unavailable SHAKEEL KAYE Primary Care Unavailable Shakeel Kaye Primary Care Provider SHAKEEL KAYE Attending Unavailable SHAKEEL KAYE Referring Unavailable SHAKEEL KAYE Primary Care Unavailable SHAKEEL KAYE Attending Unavailable SHAKEEL KAYE Referring Unavailable VARGAS, SHAKEEL Hernandez Primary Care Unavailable MIKA WEBB Attending Unavailable Unavailable Unavailable Unavailable Allergies Allergy Classification Reported Allergen(s) Allergy Type Date of Onset Reaction(s) Facility (19 sources) Penicillins; Translations: [Penicillins] Propensity to adverse reactions 12-19-19 17 [place], [place] (8 sources) Sulfamethoxazole; Translations: [sulfamethoxazole] Drug Allergy 09-29-19 19 Unknown Reaction [facility] (14 sources) Trimethoprim; Translations: [TRIMETHOPRIM] Drug Allergy 09-29-19 19 Unknown Reaction [place], [place] (9 sources) erythromycin base; Translations: [Erythromycin Base] Propensity to adverse reactions 12-19-19 17 Itching [facility] Repository (19 sources) Codeine; Translations: [CODEINE] Drug Allergy 05-20-20 18 Abdominal Pain [place], [place] (14 sources) Sulfamethoxazole / Trimethoprim; Translations: [SULFAMETHOXAZOLE-T RIMETHOPRIM] Drug Allergy 05-20-20 18 Unknown [place], [place] (2 sources) Sulfonamides (Antibiotic) Propensity to adverse reactions to drug 05-20-20 18 [place] (13 sources) Erythromycin; Translations: [ERYTHROMYCIN] Drug Allergy 12-19-19 17 Unknown [place], [place] (1 source) Codeine Drug Allergy 12-19-19 17 [facility] Repository (1 source) Sulfamethoxazole / Trimethoprim Drug Allergy 12-19-19 17 [facility] Rep[facility] (2 sources) penicillAMINE Drug Allergy Unknown [facility] [facility] [employer] Other (2 sources) Penicillin Drug Allergy Unknown [employer] Other (2 sources) Penicillin V; Translations: [PENICILLIN V] [facility] [place] ([facility] sources[facility] Sulfamethoxazole / Trimethoprim; Translations: [Bactrim] Drug Allergy Abdominal Pain [facility] [place] (6 sources) Sulfonamides (Antibiotic); Translations: [SULFA (SULFONAMIDE ANTIBIOTICS)] Propensity to adverse reactions to drug 05-20-20 [facility] (1 source) Codeine Drug Allergy 06-07-20 [facility] Repository (1 source) Botulinum Toxin Type A; Translations: [ONABOTULINUMTOXINA ] Drug Allergy 12-11-19 [facility] Repository NEGATED: Highlighted row has been ruled out! (2 sources) natural latex rubber; Translations: [LATEX, NATURAL RUBBER] Drug allergy (disorder) [place] NEGATED: Highlighted row has been ruled out! (2 sources) No IV Contrast Allergy.; Translations: [IV Dye, Iodine Containing] Drug allergy (disorder) [place] Encounters Encounter Date Encounter Type Care Provider Facility Start: 02-21-2024 End: 02-21-2024 ambulatory [facility] Start: 02-05-2024 End: 02-05-2024 ambulatory SHAKEEL G [facility] Start: 11-20-2023 End: 12-13-2023 Subsequent hospital visit by physician Kemar Ballesteros MD Work Phone: [facility] Start: 10-19-2023 Evaluation and management of inpatient GEORGE BLUE [facility] Start: 10-04-2023 End: 11-20-2023 Evaluation and management of inpatient JULI RAYMOND [facility] Start: 09-25-2023 End: 09-25-2023 ambulatory Jonathan Workman Other [employer] Other Start: 09-25-2023 Telephone encounter Jonathan Workman [facility] Start: 09-06-2023 Orders Only Shakeel jackson DO Work Phone: [facility] - [facility] Start: 09-04-2023 End: 09-04-2023 ambulatory [facility] Start: 09-04-2023 Encounter for genera l adult medical examination without abnormal findings [facility] Start: 09-03-2023 End: 09-03-2023 Patient encounter status Shakeel Kaye DO Work Phone: [facility] Work Phone: Start: 09-03-2023 End: 09-03-2023 Periodic preventive med est patient 40-64yrs Shakeel Kaye DO Work Phone: [facility] Comment on above: Well adult [facility] (Primary Dx); Alcohol use disorder, severe, dependence (CMS-HCC); Needs flu shot; Vitamin D deficiency; Class 2 severe obesity due to excess calories with serious comorbidity and body mass index (BMI) of 38.0 to 38.9 in adult ; MDD (major depressive disorder), severe (CMS-HCC); Essential hypertension; Abnormal liver function Start: 09-03-2023 End: 09-03-2023 ambulatory [facility] Start: 09-03-2023 Encounter for genera l adult medical examination without abnormal findings [facility] Start: 06-07-2023 End: 06-12-2023 Evaluation and management of inpatient Bradford Scotty Facility:[facility] Start: 06-07-2023 End: 06-12-2023 Evaluation and management of inpatient DO Shakeel Kaye Work Phone: [facility] Work Phone: Start: 06-07-2023 ambulatory Dwain Vann Facility:[facility] Start: 05-01-2023 End: 05-02-2023 Emergency department patient visit [facility] Comment on above: Hypotension, unspeci fied; Alcohol dependence with withdrawal, uncomplicated (CMS/HCC); Alcohol dependence with intoxication, uncomplicated (CMS/HCC); Blood alcohol level of 80-99 mg/100 ml; Acute kidney failure, unspecified (CMS/HCC); Dehydration; Other stimulant use, unspecified, uncomplicated; Cannabis use, unspecified, uncomplicated; Anxiety disorder, unspecified; Allergy status to penicillin; 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; Nausea with vomiting, unspecified Start: 03-26-2023 End: 04-01-2023 Evaluation and management of inpatient JIMENEZ GASPAR Facility:[facility] Start: 03-25-2023 End: 03-26-2023 ambulatory MAIDANA HÉCTOR Facility:[facility] Start: 03-21-2023 End: 03-24-2023 Evaluation and management of inpatient Dwain Soo Facility:[facility] Start: 03-20-2023 End: 03-24-2023 Evaluation and management of inpatient DO Shakeel Kaye Work Phone: [facility] Work Phone: Start: 01-24-2023 End: 01-24-2023 ambulatory Jonathan Workman Facility:[facility] Start: 01-24-2023 End: 01-24-2023 Admission to same day surgery center DO Shakeel Kovacsng Work Phone: [facility] Work Phone: Start: 11-09-2022 End: 11-09-2022 ambulatory Jonathan Workman Other [employer] Other Start: 11-09-2022 Patient encounter procedure Jonathan Workman [facility] Start: 08-22-2022 End: 08-22-2022 ambulatory DO Lee Katharinemartinez Work Phone: [facility] Work Phone: Start: 08-22-2022 End: 08-22-2022 Patient encounter procedure DO Lee Katharinemartinez Work Phone: [facility] Start: 06-06-2022 Postop follow up vis it related to original px Elizabeth Dempsey [facility] Start: 06-06-2022 End: 06-06-2022 ambulatory DO Lee Katharinehas Work Phone: [facility] Work Phone: Start: 06-06-2022 End: 06-06-2022 Patient encounter procedure DO Lee Mtz Work Phone: [facility] Start: 05-08-2022 End: 05-08-2022 Patient encounter procedure DO Lee Mtz Work Phone: [facility] Start: 04-09-2022 End: 04-09-2022 ambulatory Elizabeth Dempsey Other [employer] Other Start: 04-09-2022 FQ visit new patient Elizabeth Byers y [facility] Start: 04-09-2022 End: 04-09-2022 Patient encounter procedure DO Lee Mtz Work Phone: [facility] Start: 04-05-2022 End: 04-05-[address] RILEY DOAN Facility:[facility] Start: 01-08-2022 End: 01-09-[address] DOCTOR FORREST Facility:[facility] Start: 12-28-2021 End: 12-29-[address] DOCTOR FORREST Facility:[facility] Start: 05-23-2021 End: 05-24-[address] DOCTOR FORRSET Facility:[facility] Start: 05-12-2019 End: 05-15-2019 Evaluation and management of inpatient Katrinaperla Vitalel Work Phone: [id number] Start: 05-12-2019 Patient encounter procedure Shakeel Kaye [facility] Admitting Comment on above: N/A MD Josiah Linder MD [facility] Goals Date Patient Goal Desired Activity /State Immunizations Immunization Date Immunization Notes Care Provider [facility] 09-03-2023 influenza, injectabl e, quadrivalent, preservative free Shakeeleric Brownria DO Work Phone: [facility] [place] 09-03-2023 Immunization, In Clinic,; Translations: [Drug or medicament (substance)] Shakeeleric Brownlong DO Work Phone: [facility] 05-14-2023 tetanus toxoid, redu rocio diphtheria toxoid, and acellular pertussis vaccine, adsorbed Shakeel Furlong DO Work Phone: [facility] 07-16-2022 influenza, injectabl e, quadrivalent, preservative free Shakeel Furlong DO Work Phone: [facility] 08-17-2021 Influenza, injectabl e, Madin Amirah Canine Kidney, preservative free, quadrivalent Shakeel Furlong DO Work Phone: [facility] 12-20-2020 COVID-19, mRNA, LNP- S, PF, 100mcg/0.5mL Dose Shakeel Furlong DO Work Phone: [facility] 12-15-2020 COVID-19, mRNA, LNP- S, PF, 100mcg/0.5mL Dose Shakeel Furlong DO Work Phone: [facility] 11-22-2020 COVID-19, mRNA, LNP- S, PF, 100mcg/0.5mL Dose Shakeel Furlong DO Work Phone: [facility] 11-16-2020 COVID-19, mRNA, LNP- S, PF, 100mcg/0.5mL Dose Shakeel Furlong DO Work Phone: [facility] 08-01-2020 Influenza, injectabl e, Madin Amirah Canine Kidney, preservative free, quadrivalent Shakeel Furlong DO Work Phone: [facility] 07-19-2017 Influenza, injectabl e, Madin Amirah Canine Kidney, preservative free, quadrivalent Shakeel Furlong DO Work Phone: [facility] 01-21-2017 hepatitis A vaccine, adult dosage Shakeel Furlong DO Work Phone: [facility] 01-21-2017 hepatitis B vaccine, adult dosage Shakeeleric Kovacsng DO Work Phone: [facility] 09-02-2016 influenza virus vaccine, unspecified formulation [place], [place] 08-20-2016 hepatitis B vaccine, adult dosage Shakeeleric Kovacsng DO Work Phone: [facility] 07-31-2016 influenza, seasonal, injectable, preservative free Shakeeleric Kovacsng DO Work Phone: [facility] 07-02-2016 hepatitis A vaccine, adult dosage Shakeeleric Kovacsng DO Work Phone: [facility] 07-02-2016 hepatitis B vaccine, adult dosage Shakeel Kovacsng DO Work Phone: [facility] 10-28-2008 tetanus toxoid, redu rocio diphtheria toxoid, and acellular pertussis vaccine, adsorbed [place], [place] Medications Current Medications Medication Drug Class(es) Dates Sig (Normalized) Sig (Original) acetaminophen 325 mg oral tablet (1 source) Start: 9 acetaminophen (TYLENOL) tablet 650 mg Acetaminophen / HYDROcodone (1 source) Opioid Agonist Start: 2 take 1-2 tablets by mouth every four to six hours as needed [place] 5-325 MG 1-2 tablet as needed Orally every 4-6 hrs for 7 days Apr, Active amiodarone hydrochloride 200 mg oral tablet (1 source) Antiarrhythmic Start: 4 take 1 tablet by mouth twice daily amiodarone (CORDARONE) 200 MG tablet Take 1 tablet by mouth 2 times daily 0 11/19/2023 Active amLODIPine 10 mg oral tablet (1 source) Dihydropyridine Calcium Channel Minoo Start: 4 take 1 tablet by mouth once daily amLODIPine (NORVASC) 10 MG tablet Take 1 tablet by mouth daily 30 tablet 3 11/20/2023 Active amLODIPine 5 mg / hydroCHLOROthiazide 12.5 mg / olmesartan medoxomil 40 mg oral tablet (2 sources) Thiazide Diuretic, Dihydropyridine Calcium Channel Minoo, Angiotensin 2 Receptor Minoo take 1 tablet by mouth every twenty-four hours Olmesartan-amLODI Ransom-HCTZ 40-5-12.5 MG 1 tablet Orally Once a day Active apixaban 5 mg oral tablet (1 source) Factor Xa Inhibitor Start: 4 take 1 tablet by mouth twice daily apixaban (ELIQUIS) 5 MG TABS tablet Take 1 tablet by mouth 2 times daily 60 tablet 0 11/19/2023 Active ARIPiprazole 5 mg oral tablet (1 source) Atypical Antipsychotic Start: 9 take 1 tablet by mouth once daily ARIPiprazole (ABILIFY) 5 MG tablet Take 1 tablet by mouth daily 14 tablet 0 05/19/2019 Active Start: 05-19-2019 take 1 tablet by yuri th once daily ARIPiprazole (ABILIFY) 5 MG tablet Take 1 tablet by mouth daily 14 tablet 0 05/19/2019 Active benzocaine 15 mg / menthol 3.6 mg oral lozenge (2 sources) Standardized Chemical Allergen Start: 05-13-2019 benzocaine-menthol (CEPACOL SORE THROAT) lozenge 1 lozenge busPIRone hydrochloride 10 mg oral tablet (4 sources) Start: 08-24-2023 take 1 tablet by mouth three times daily busPIRone (BUSPAR) 10 MG tablet Take 1 tablet by mouth 3 times daily 0 08/24/2023 Active Start: 06-11-2023 take 10 mg by mouth three times daily Buspirone Active 10 MG PO Three times daily 45 June 11, 2023 12:00am calcium carbonate 500 mg chewable tablet (1 source) Start: 05-14-2019 calcium carbonate (TUMS) chewable tablet 500 mg carvedilol 6.25 mg oral tablet (1 source) alpha-Adrenergic Minoo, beta-Adrenergic Minoo Start: 11-19-2023 take 1 tablet by mouth twice daily at mealtime carvedilol (COREG) 6.25 MG tablet Take 1 tablet by mouth 2 times daily (with meals) 60 tablet 3 11/19/2023 Active chlordiazePOXIDE hydrochloride 10 mg oral capsule (1 source) Benzodiazepine Start: 05-14-2019 chlordiazePOXIDE (LIBRIUM) capsule 10 mg chlorhexidine gluconate 1.2 mg/ml mouthwash (1 source) Start: 05-12-2019 chlorhexidine (PERIDEX) 0.12 % solution 15 mL clindamycin 300 mg oral capsule (4 sources) Lincosamide Antibacterial Start: 05-15-2019 End: 05-22-2019 take 1 capsule by mouth twice daily clindamycin (CLEOCIN) 300 MG capsule Take 1 capsule by mouth 2 times daily for 7 days 14 capsule 0 05/15/2019 05/22/2019 Active Start: 05-12-2019 clindamycin (C LEOCIN) 600 mg in dextrose 5 % 50 mL IVPB cloNIDine hydrochloride 0.2 mg oral tablet (11 sources) Central alpha-2 Adrenergic Agonist Start: 09-17-2023 take 1 tablet by mouth once daily at bedtime cloNIDine (CATAPRES) 0.2 MG tablet Take 1 tablet by mouth nightly at bedtime. 0 09/17/2023 Active Start: 08-24-2023 take 1 tablet by yuri th once daily at bedtime cloNIDine (CATAPRES) 0.2 mg tablet Take 1 tablet (0.2 mg total) by mouth once daily at bedtime. 0 08/24/2023 Active Start: 01-24-2023 End: 03-24-2023 take 0.2 mg by mouth at bedtime Clonidine Hcl Active 0 .2 MG PO Bedtime 0 March 23, 2023 8:40pm Start: 01-24-2023 take 0.1 mg by mouth at bedtim e Clonidine Hcl Active 0.1 MG PO Bedtime January 24, 2023 12:00am Start: 06-25-2022 End: 09-03-2023 take 2 tablets by mouth once daily at bedtime cloNIDine (CATAPRES) 0.1 mg tablet Take 2 tablets (0.2 mg total) by mouth once daily at bedtime. 0 06/25/2022 09/03/2023 Discontinued (Therapy completed) take 1 tablet by yuri th every twenty-four hours cloNIDine HCl 0.1 MG 1 tablet Orally Once a day Active doxepin hydrochloride 10 mg oral capsule (6 sources) Tricyclic Antidepressant Start: 09-17-2023 take 1 capsule by mouth once daily doxepin (SINEQUAN) 10 MG capsule Take 1 capsule by mouth nightly 0 09/17/2023 Active Start: 06-08-2023 take 10 mg by mouth once daily at bedtime Doxepin Active 10 MG PO Daily at bedtime June 08, 2023 12:00am 0.4 ml enoxaparin sodium 100 mg/ml prefilled syringe (1 source) Low Molecular Weight Heparin Start: 05-12-2019 enoxaparin (LOVENOX) injection 40 mg 2 ml famotidine 10 mg/ml injection (1 source) Histamine-2 Receptor Antagonist Start: 05-12-2019 famotidine (PEPCID) injection 20 mg FLUoxetine 10 mg oral capsule (5 sources) Serotonin Reuptake Inhibitor Start: 09-17-2023 take 1 capsule by mouth once daily FLUoxetine (PROZAC) 10 MG capsule Take 1 capsule by mouth daily 0 09/17/2023 Active Start: 08-24-2023 take 1 capsule by mo [facility] in the morning FLUoxetine (PROzac) 20 mg capsule Take 1 capsule (20 mg total) by mouth in the morning. 0 08/24/2023 Active Start: 06-12-2023 take 30 mg by mouth once daily in the morning Fluoxetine Active 30 MG PO Every morning 45 June 12, 2023 12:00am Start: 06-11-2023 take 20 mg by mouth once daily in the morning Fluoxetine Active 20 MG PO Every morning 30 June 11, 2023 12:00am folic acid 1 mg oral tablet (14 sources) Start: 11-20-2023 take 1 tablet by mouth once daily folic acid (FOLVITE) 1 MG tablet Take 1 tablet by mouth daily 30 tablet 3 11/20/2023 Active Start: 06-12-2023 take 1 mg by mouth once daily Folic Acid Active 1 MG PO Daily 30 June 12, 2023 12:00am Start: 05-15-2019 End: 06-08-2023 take 1 mg by mouth once daily Folic Acid Discontinued 1 MG PO Daily 0 March 23, 2023 8:40pm June 08, 2023 1:14am Folic Acid Activ e folic acid 1 mg, thiamine (B-1) 100 mg in dextrose 5 % 50 mL IVPB (1 source) Start: 05-12-2019 folic acid 1 m g, thiamine (B-1) 100 mg in dextrose 5 % 50 mL IVPB gabapentin 100 mg oral capsule (12 sources) Anti-epileptic Agent Start: 09-12-2023 take 1 capsule by mouth three times daily gabapentin (NEURONTIN) 100 MG capsule Take 1 capsule by mouth 3 times daily. 0 09/12/2023 Active Start: 09-12-2023 take 2 capsules by m outh three times daily gabapentin (NEURONTIN) 300 MG capsule Take 2 capsules by mouth 3 times daily. 0 09/12/2023 Active Start: 08-15-2023 take 1 capsule by mo uth three times daily gabapentin (NEURONTIN) 100 mg capsule Take 1 capsule (100 mg total) by mouth 3 (three) times a day. 0 08/15/2023 Active Start: 06-12-2023 take 700 mg by mouth three times daily Gabapentin Active 700 MG PO Three times daily 315 June 12, 2023 12:00am Start: 06-11-2023 take 600 mg by mouth three times daily Gabapentin Active 600 MG PO Three times daily 90 June 11, 2023 12:00am Start: 06-08-2023 End: 06-12-2023 take 300 mg by mouth three times daily Gabapentin Discontinued 300 MG PO Three times daily June 08, 2023 12:00am June 12, 2023 11:59am Start: 03-23-2023 End: 06-08-2023 take 200 mg by mouth twice daily Gabapentin Discontinu ed 200 MG PO Twice daily 60 March 23, 2023 12:00am June 08, 2023 1:14am take 2 capsules by m outh three times daily gabapentin (NEURONTIN) 300 mg capsule Take 2 capsules (600 mg total) by mouth 3 (three) times a day. 0 Active take 1 capsule by mo uth twice daily gabapentin 300 mg Capsule, Ordered By: Favian Sheppard DO Directions: 1 capsule oral twice a day hydrOXYzine pamoate 50 mg oral capsule (8 sources) Antihistamine Start: 09-17-2023 take 1 capsule by mouth three times daily hydrOXYzine pamoate (VISTARIL) 50 MG capsule Take 1 capsule by mouth 3 times daily 0 09/17/2023 Active Start: 08-16-2023 take 1 capsule by mo uth three times daily as needed for anxiety hydrOXYzine (VISTARIL) 50 mg capsule Take 1 capsule (50 mg total) by mouth 3 (three) times a day as needed for anxiety. 0 08/16/2023 Active Start: 06-08-2023 take 50 mg by mouth three times daily Hydroxyzine Pamoate Active 50 MG PO Three times daily June 08, 2023 1:11am Start: 03-24-2023 End: 06-08-2023 take 50 mg by mouth every six hours Hydroxyzine Pamoate Discontinued 50 MG PO Q6H 30 15 March 24, 2023 12:00am June 08, 2023 1:14am Start: 03-20-2023 End: 06-08-2023 take 25 mg by mouth once daily Hydroxyzine Hcl Discont inued 25 MG PO Daily March 20, 2023 12:00am June 08, 2023 1:14am take 1 tablet by yuri three times daily as needed for anxiety hydrOXYzine HCl 50 mg Tablet, Ordered By: Favian Sheppard DO Directions: 1 tablet oral three times a day PRN anxiety LORazepam 0.5 mg oral tablet (1 source) Benzodiazepine Start: 11-19-2023 End: 12-19-2023 take 1 tablet by mouth every four hours as needed for anxiety LORazepam (ATIVAN) 0.5 MG tablet Indications: Alcohol abuse Take 1 tablet by mouth every 4 hours as needed for Anxiety for up to 30 days. Max Daily Amount: 3 mg 0 11/19/2023 12/19/2023 Active losartan potassium 50 mg oral tablet (1 source) Angiotensin 2 Receptor Minoo Start: 06-08-2023 take 50 mg by mouth twice daily Losartan Active 50 MG PO Twice daily June 08, 2023 12:00am magnesium hydroxide 80 mg/ml oral suspension (1 source) Start: 05-12-2019 magnesium hydroxide (MILK OF MAGNESIA) 400 MG/5ML suspension 30 mL melatonin 1 mg extended release oral tablet (6 sources) Start: 05-18-2019 take 1 tablet by mouth once daily as needed for sleep melatonin ER 1 MG TBCR tablet Take 1 tablet by mouth nightly as needed (sleep) 14 tablet 0 05/18/2019 Active take 1 tablet by mouth at bedtim e melatonin 3 MG TABS tablet Take 1 tablet by mouth at bedtime 0 Active take 1 tablet by mouth once cooper y melatonin 3 mg Tablet Extended Release, Ordered By: Favian Sheppard DO Directions: 1 tablet oral daily Multiple Vitamins-Minerals (THERAPEUTIC MULTIVITAMIN-MINERALS) tablet (1 source) Start: 03-20-2024 take 1 tablet by mouth once daily Multiple Vitamins-Minerals (THERAPEUTIC MULTIVITAMIN-MINERALS) tablet Take 1 tablet by mouth daily 0 11/20/2023 Active OLANZapine 20 mg oral tablet (5 sources) Atypical Antipsychotic Start: 09-17-2023 take 1 tablet by mouth once daily at bedtime OLANZapine (ZYPREXA) 20 MG tablet Take 1 tablet by mouth nightly at bedtime. 0 09/17/2023 Active Start: 08-16-2023 take 1 tablet by yuri once daily OLANZapine (ZyPREXA) 20 mg tablet Take 1 tablet (20 mg total) by mouth nightly. 0 08/16/2023 Active Start: 06-08-2023 take 15 mg by mouth once daily at bedtime Olanzapine Active 15 MG PO Daily at bedtime June 08, 2023 12:00am Start: 03-20-2023 End: 03-24-2023 take 5 mg by mouth once daily at bedtime Olanzapine Discontinued 5 MG PO Daily at bedtime March 20, 2023 12:00am March 24, 2023 8:35am omega-3 acid ethyl esters (u sp) 1000 mg oral capsule (2 sources) Start: 09-17-2023 omega-3 acid e thyl esters (LOVAZA) 1 g capsule Take 2 capsules by mouth 2 times daily 0 09/17/2023 Active Start: 09-06-2023 take 1 capsule by mo uth at bedtime omega-3 acid ethyl esters (LOVAZA) 1 gram capsule Take 2 capsules (2 g total) by mouth in the morning and 2 capsules (2 g total) before bedtime. 120 capsule 5 09/06/2023 Active omeprazole 20 mg delayed release oral capsule (2 sources) Proton Pump Inhibitor Start: 09-17-2023 take 1 capsule by mouth once daily in the morning omeprazole (PRILOSEC) 20 MG delayed release capsule Take 1 capsule by mouth every morning 0 09/17/2023 Active Start: 09-06-2023 take 1 capsule by mo uth in the morning omeprazole (PriLOSEC) 20 mg capsule Take 1 capsule (20 mg total) by mouth in the morning. 30 capsule 2 09/06/2023 Active 2 ml ondansetron 2 mg/ml injection (1 source) Serotonin-3 Receptor Antagonist Start: 05-12-2019 ondansetron (ZOFRAN) injection 4 mg pantoprazole 40 mg delayed release oral tablet (3 sources) Proton Pump Inhibitor Start: 05-16-2019 take 1 tablet by mouth once daily before breakfast pantoprazole (PROTONIX) 40 MG tablet Take 1 tablet by mouth every morning (before breakfast) 30 tablet 3 05/16/2019 Active Start: 05-15-2019 pantoprazole ( PROTONIX) tablet 40 mg QELBREE 200 mg capsule,extended release 24hr (2 sources) Start: 08-16-2023 take 2 capsules by mouth once daily QELBREE 200 mg capsule,extended release 24hr Take 2 capsules by mouth nightly. 0 08/16/2023 Active QELBREE 200 MG CP24 (1 source) Start: 08-16-2023 take 400 mg by mouth once daily QELBREE 200 MG CP24 Take 400 mg by mouth nightly 0 08/16/2023 Active 3 ml sodium chloride 9 mg/ml injection (3 sources) Start: 05-12-2019 sodium chlorid e flush 0.9 % injection 10 mL Start: 05-12-2019 End: 05-14-2019 0.9 % sodium chloride infusi on thiamine 100 mg oral tablet (4 sources) Start: 11-20-2023 take 1 tablet by mouth once daily thiamine 100 MG tablet Take 1 tablet by mouth daily 30 tablet 3 11/20/2023 Active Start: 06-11-2023 take 100 mg by mouth twice daily Thiamine Hcl (Vitamin B1) Active 100 MG PO Twice daily June 11, 2023 12:00am take 1 tablet by yuri th once daily thiamine mononitrate (vit B1) 100 mg Tablet, Ordered By: Favian Sheppard DO Directions: 1 tablet oral daily Completed/Discontinued Medications Medication Drug Class(es) Dates Sig (Normalized) Sig (Original) amphetamine aspartate 2.5 mg / amphetamine sulfate 2.5 mg / dextroamphetamine saccharate 2.5 mg / dextroamphetamine sulfate 2.5 mg oral tablet (15 sources) Central Nervous System Stimulant Start: 07-08-2022 End: 09-03-2023 take 1 tablet by mouth three times daily dextroamphetamine- amphetamine (ADDERALL) 10 mg tablet Take 1 tablet (10 mg total) by mouth 3 (three) times a day. Max Daily Amount: 30 mg 0 07/08/2022 09/03/2023 Discontinued (Therapy completed) Start: 09-29-2018 End: 06-08-2023 take 1 tablet by mouth twice daily Dextroamphetamine-Amphetamine (Adderall) 15 mg tablet Discontinued 15 MG PO Twice daily September 29, 2018 1:00am June 08, 2023 1:13am End: 05-18-2019 amphetamine-dextroamphetamin e (ADDERALL) 15 MG tablet dextroamphetamine-amphetamine 15 mg tablet 5 mg by oral route. 0 05/18/2019 Discontinued (Stop Taking at Discharge) cholecalciferol (vitamin D3) (Vitamin D3) 1,000 unit Tablet, Ordered By: Favian Sheppard DO Directions: 1 tablet oral daily (2 sources) take 1 tablet by mouth once daily cholecalciferol (vitamin D3) (Vitamin D3) 1,000 unit Tablet, Ordered By: Favian Sheppard DO Directions: 1 tablet oral daily clindamycin HCl 300 mg Capsule Directions: oral (2 sources) clindamycin HCl 300 mg Capsule Directions: oral Additional Instructions: clindamycin (CLEOCIN) 300 MG capsule Take 1 capsule by mouth 2 times daily for 7 days 14 capsule 0 05/15/2019 05/22/2019 Active clindamycin (CLEOCIN) 600 mg in dextrose 5 % 50 mL IVPB cloNIDine HCl 0.1 mg Tablet Directions: Oral (2 sources) cloNIDine HCl 0. 1 mg Tablet Directions: Oral Additional Instructions: Clonidine Hcl Active 0.1 MG PO Bedtime January 24, 2023 12:00am cloNIDine HCl 0.1 MG 2 tablets Orally Once a day Active cloNIDine HCl 0.1 MG 1 tablet Orally Once a day Active DULoxetine 60 mg delayed release oral capsule (8 sources) Serotonin and Norepinephrine Reuptake Inhibitor Start: 023 End: 024 take 1 capsule by mouth once daily Duloxetine (Cymbalta) 60 mg capsule,delayed release(DR/EC) Discontinued 60 MG PO Daily January 24, 2023 12:00am March 24, 2023 8:35am Start: 05-19-2019 End: 06-02-2019 take 1 capsule by mouth once daily DULoxetine (CYMBALTA) 30 MG extended release capsule Take 1 capsule by mouth daily for 14 days 14 capsule 0 05/19/2019 06/02/2019 Active escitalopram 10 mg oral tablet (2 sources) Serotonin Reuptake Inhibitor Start: 03-23-2023 End: 06-12-2023 take 10 mg by mouth once daily Escitalopram Oxalate Discontinued 10 MG PO Daily June 08, 2023 12:00am June 12, 2023 11:59am lisinopril 20 mg oral tablet (7 sources) Angiotensin Converting Enzyme Inhibitor Start: 09-29-2018 End: 01-24-2023 take 20 mg by mouth once daily Lisinopril Discontinued 20 MG PO daily September 29, 2018 1:00am January 24, 2023 6:59am kb-go-GU-inosi-chol ine-bioflav (Theramill Forte) 67 mcg-12.5 mg-12.5 mg-17 mg Capsule Directions: 1 capsule oral daily (2 sources) take 1 capsule by mouth once daily ch-nf-ZG-inosi-cho line-bioflav (Theramill Forte) 67 mcg-12.5 mg-12.5 mg-17 mg Capsule Directions: 1 capsule oral daily Naltrexone (12 sources) Opioid Antagonist Start: 08-16-2016 Vivitrol Aug, 380 mg Start: 07-09-2016 Vivitrol 07 No v2015 380 mg Start: 06-07-2016 Vivitrol 06 Oc t2015 380 mg olmesartan medoxomil 40 mg oral tablet (4 sources) Angiotensin 2 Receptor Minoo Start: 07-16-2022 End: 09-03-2023 take 1 tablet by mouth once daily Olmesartan (Benicar) 40 mg tablet Discontinued 40 MG PO Daily March 23, 2023 8:40pm June 08, 2023 1:14am olmesartan 40 mg Tablet Directions: Oral (2 sources) olmesartan 40 mg Tablet Directions: Oral Additional Instructions: Olmesartan Active 40 MG PO Daily January 24, 2023 12:00am 100 ml propofol 10 mg/ml injection (1 source) General Anesthetic Start: 05-12-2019 End: 05-14-2019 propofol injection QUEtiapine 100 mg oral tablet (13 sources) Atypical Antipsychotic Start: 09-29-2018 End: 01-24-2023 take 100 mg by mouth once daily at bedtime Quetiapine Discontinued 100 MG PO Daily at bedtime September 29, 2018 1:00am January 24, 2023 6:59am End: 05-18-2019 take 2 tablets by mouth once daily QUEtiapine (SEROQUEL) 25 MG tablet Take 2 tablets by mouth nightly 0 05/18/2019 Discontinued (Stop Taking at Discharge) QUEtiapine (SERO QUEL) 25 MG tablet sertraline 100 mg oral tablet (10 sources) Serotonin Reuptake Inhibitor Start: 09-29-2018 End: 01-24-2023 take 250 mg by mouth once daily Sertraline Discontinued 250 MG PO daily September 29, 2018 1:00am January 24, 2023 6:59am End: 05-18-2019 take 2.5 tablets by mouth once daily sertraline (ZOLOFT) 100 MG tablet Take 2.5 tablets by mouth daily 0 05/18/2019 Discontinued (Stop Taking at Discharge) sertraline (ZOLO FT) 100 MG tablet traZODone hydrochloride 50 mg oral tablet (6 sources) Serotonin Reuptake Inhibitor Start: 03-24-2023 End: 06-08-2023 take 50 mg by mouth once daily at bedtime Trazodone Discontinued 50 MG PO Daily at bedtime March 24, 2023 12:00am June 08, 2023 1:14am Start: 06-26-2022 End: 09-03-2023 take 300 mg by mouth at bedtime Trazodone Discontinued 300 MG PO Bedtime January 24, 2023 12:00am March 24, 2023 8:35am 24 hr divalproex sodium 500 mg extended release oral tablet (13 sources) Mood Stabilizer, Anti-epileptic Agent Start: 09-29-2018 End: 01-24-2023 take 1500 mg by mouth once daily at bedtime Divalproex Discontinued 1500 MG PO Daily at bedtime September 29, 2018 1:00am January 24, 2023 6:59am take 1 tablet by mouth once cooper y divalproex (DEPAKOTE ER) 250 MG extended release tablet Take 1 tablet by mouth nightly 0 Active take 3 tablets by mouth once og ly divalproex (DEPAKOTE ER) 500 MG extended release tablet Take 3 tablets by mouth nightly 0 Active divalproex (DEPA KOTE ER) 500 MG extended release tablet venlafaxine 50 mg oral tablet (10 sources) Serotonin and Norepinephrine Reuptake Inhibitor Start: 09-29-2018 End: 01-24-2023 take 50 mg by mouth once daily Venlafaxine Discontinued 50 MG PO daily September 29, 2018 1:00am January 24, 2023 6:59am vitamin O89-ksjgn acid 500 mcg-1 mg Tablet Directions: 1 tablet oral daily (2 sources) take 1 tablet by mouth once daily vitamin B54-mknwf acid 500 mcg-1 mg Tablet Directions: 1 tablet oral daily Payers Date Payer Category Payer Self-pay [id number] 2020 Medicaid [employer] [id number] 2020-Present [phone] [address] [place] [address] [id number] 2019 Unknown [employer] xxxxxxxxx 2019-Present [phone] [address] [place] [address] xxxxxxxxx [id number] 2019 Unknown [id number] 2015 Unknown [id number] 1978 Unknown [id number] 1978 Unknown [id number] 1978 Unknown [id number] 1978 Unknown [id number] 1978 Unknown [id number] 1978 Unknown [id number] 1978 Unknown [id number] 1978 Unknown [id number] 1978 Unknown [id number] 1959 Unknown [id number] Unknown [id number] Unknown [id number] Unknown [id number] Unknown [id number] Plan of Treatment Date Care Activity Detail Author Start: 05-14-2033 DTaP,Tdap and Td Vaccines (3 - Td or Tdap) DTaP,Tdap and Td Vaccines (3 - Td or Tdap) [facility] Start: 05-14-2033 DTaP/Tdap/Td vaccine (3 - Td or Tdap) DTaP/Tdap/Td vaccine (3 - Td or Tdap) [facility] Start: 10-04-2028 Lipid panel Lipids [facility] Start: 2028 Zoster Vaccines (1 of 2) Zoste r Vaccines (1 of 2) [facility] Start: 09-03-2024 Adult BMI Screening Adult BMI Screen ing [facility] Start: 09-03-2024 Depression Screening Depression Scre ening [facility] Start: 09-03-2024 Tobacco Screening Tobacco Screening [facility] Start: 05-16-2024 Lipid screen Lipid screen [facility] [place] [place] Start: 06-28-2023 COVID-19 Vaccine ( season) COVID-19 Vaccine ( season) [facility] Start: 06-12-2023 [facility] Start: 06-07-2023 Hospital admission [facility] Start: 05-03-2023 COVID-19 Vaccine ( season) COVID-19 Vaccine ( season) [facility] Start: 05-03-2023 Influenza vaccination Influenza Vacc ine (#1) [facility] Start: 2023 Screening for malign ant neoplasm of colon [facility] Start: 03-24-2023 [facility] Start: 03-20-2023 Hospital admission [facility] Start: 01-24-2023 [facility] Start: 08-22-2022 [facility] Start: 06-10-2019 End: 06-10-2019 Office Visit 06/10/2019 Office Visit Neurology Brenda Mcdowell MD [facility] [id number] [facility] Start: 05-03-2019 Influenza vaccination Flu vaccine (# 1) [place], [place] Start: 10-28-2018 DTaP/Tdap/Td vaccine (2 - Td) DTaP/Tdap/Td vaccine (2 - Td) [place], [place] Start: 2018 Diabetes screen Diabetes screen [place], [place] Start: 2018 Lipid screen Lipid screen [place], [place] Start: 01-21-2018 Hepatitis B vaccine (1 of 1 - Risk Dialysis 4-dose series) Hepatitis B vaccine (1 of 1 - Risk Dialysis 4-dose series) [facility] Start: 2000 DTaP/Tdap/Td Vaccine s (1 - Tdap) DTaP/Tdap/Td Vaccines (1 - Tdap) [facility] Start: 1996 Adult BMI Follow Up Plan Adult BMI Follow Up Plan [facility] Start: 1996 Hepatitis C screening [facility] Start: 1993 HIV screen HIV screen [place], [place] Start: 1993 HIV screening HIV screen [facility] Start: 1990 Depression Monitoring Depression Mon itoring [facility] Start: 1984 Pneumococcal 0-64 ye ars Vaccine (1 of 1 - PPSV23) Pneumococcal 0-64 years Vaccine (1 of 1 - PPSV23) [facility] [place] Start: 1984 Pneumococcal 0-64 ye ars Vaccine (1 of 2 - PCV) Pneumococcal 0-64 years Vaccine (1 of 2 - PCV) [facility] Start: 1984 Pneumococcal Vaccine : Pediatrics (0 to 5 Years) and At-Risk Patients (6 to 64 Years) (1 - PCV) Pneumococcal Vaccine: Pediatrics (0 to 5 Years) and At-Risk Patients (6 to 64 Years) (1 - PCV) [facility] Start: 1979 MMR Vaccines (1 of 1 - Standard series) MMR Vaccines (1 of 1 - Standard series) [facility] Start: 1978 COVID-19 Vaccine (#1) COVID-19 Vacci ne (#1) [facility] Start: 1978 Hepatitis B Vaccines (1 of 3 - 3-dose series) Hepatitis B Vaccines (1 of 3 - 3-dose series) [facility] Start: 1978 HIV screening HIV Screening [facility] Start: 1978 Lipid panel Lipid Panel [facility] Start: 1978 Screening for malign ant neoplasm of colon [facility] Start: 1978 Yearly Adult Physical Yearly Adult P hysical [facility] CBC auto differential CBC auto d ifferential Lab Routine Daily until discontinued starting 05/13/2019, 3 completed [facility] [place] Comment on above: Daily until disconti nued starting 05/13/2019, 3 completed CK CK Lab Routine D aily until discontinued starting 05/14/2019, 2 completed [facility] [place] Comment on above: Daily until disconti nued starting 05/14/2019, 2 completed End: 09-03-2024 Comprehensive metabolic 2000 panel - Serum or Plasma Comprehensive metabolic panel Lab Routine Well adult health check 1 Occurrences starting 09/03/2023 until 09/03/2024 [facility] Work Phone: Comment on above: 1 Occurrences starti ng 09/03/2023 until 09/03/2024 Comprehensive Metabo lic Panel w/ Reflex to MG Comprehensive Metabolic Panel w/ Reflex to MG Lab Routine Daily until discontinued starting 05/13/2019, 3 [facility] Comment on above: Daily until disconti nued starting 05/13/2019, 3 completed Culture Blood #1 [place], [place] Initiate Oxygen Ther apy Protocol Initiate Oxygen Therapy Protocol Respiratory Care Routine Daily until discontinued [facility] 05/12/2019 [facility] Comment on above: Daily until disconti nued starting 05/12/2019 End: 09-03-2024 Lipid panel Lipid panel Lab Routine Well adult health check 1 Occurrences starting 09/03/2023 until 09/03/[address] [facility] Comment on above: 1 Occurrences starti ng 09/03/2023 until 09/03/2024 Patient Education [facility] Work Phone: Patient referral [facility] Work Phone: End: 05-12-2019 Respiratory care evaluation only Respiratory care evaluation only Respiratory Care Routine One Time for 1 Occurrences starting 05/12/2019 until 05/12/2019 [facility] [place] Comment on above: One Time for 1 Occur rences starting 05/12/2019 until 05/12/2019 End: 05-12-2019 Strep Pneumoniae Antigen Strep Pneumoniae Antigen Microbiology Routine One Time for 1 Occurrences starting 05/12/2019 until 05/12/2019 [place], [place] Comment on above: One Time for 1 Occur rences starting 05/12/2019 until 05/12/2019 End: 09-03-2024 Vitamin D 25 hydroxy Vitamin D 25 hydroxy Lab Routine Vitamin D deficiency 1 Occurrences starting 09/03/2023 until 09/03/[address] [facility] Comment on above: 1 Occurrences starti ng 09/03/2023 until 09/03/2024 Problems Active Problems Problem Classification Problem Date Documented Date Episodic/Chronic Acute and unspecified renal failure (4 sources) Acute renal failure syndrome; Translations: [Open wound of anus] Onset: 10-04-2023 05-01-2023 Episodic Acute myocardial infarction (3 sources) Myocardial infarction; Translations: [Myocardial infarction type 2] Onset: 10-04-2023 10-04-2023 Chronic Alcohol-related disorders (20 sources) Alcohol abuse; Translations: [Alcohol dependence, uncomplicated] Onset: 06-07-2017 Resolved: 09-03-2023 05-12-2019 Chronic Alcohol-related disorders (1 source) Alcohol use, unspecified with intoxication, uncomplicated; Translations: [Alcoholic intoxication without complication (HCC)] Onset: 03-25-2023 Episodic Allergic reactions (1 source) Allergy to penicillin; Translations: [Allergy status to penicillin] 05-05-2023 Episodic Anxiety disorders (7 sources) Mixed obsessional thoughts and acts; Translations: [Generalized anxiety disorder] Onset: 06-02-2021 05-05-2023 Chronic Attention-deficit, conduct, and disruptive behavior disorders (5 sources) Attention-deficit hyperactivity disorder, combined type; Translations: [ADHD COMBINED TYPE] Onset: 01-01-2022 Chronic Bacterial infection; unspecified site (1 source) Bacteremia; Translations: [Bacteremia] Onset: 10-26-2023 10-28-2023 Episodic Cardiac arrest and ventricular fibrillation (3 sources) Cardiac arrest, cause unspecified; Translations: [Cardiac arrest] Onset: 10-25-2023 10-25-2023 Chronic Cardiac dysrhythmias (7 sources) Unspecified atrial fibrillation; Translations: [Multiple premature ventricular complexes] Onset: 10-04-2023 10-04-2023 Chronic Diseases of white blood cells (1 source) Leukocytosis; Translations: [Elevated white blood cell count, unspecified] Onset: 10-04-2023 10-04-2023 Chronic Disorders of lipid metabolism (1 source) Hypertriglyceridemia; Translations: [Pure hyperglyceridemia] Onset: 10-04-2023 10-04-2023 Chronic Disorders usually diagnosed in infancy, childhood, or adolescence (2 sources) Undifferentiated attention deficit disorder; Translations: [Other specified behavioral and emotional disorders with onset usually occurring in childhood and adolescence] Onset: 06-10-2020 07-16-2022 Chronic E Codes: Fall (1 source) Unspecified fall, initial encounter; Translations: [UNSPECIFIED FALL INITIAL ENCOUNTER] Onset: 04-06-2022 Episodic E Codes: Unspecified (1 source) High alcohol level in blood; Translations: [Blood alcohol level of 80-99 mg/100 ml] 05-05-2023 Episodic Epilepsy; convulsions (1 source) Other seizures; Translations: [Other seizures] Onset: 01-03-2024 Chronic Esophageal disorders (4 sources) Gastroesophageal reflux disease; Translations: [Gastro-esophageal reflux disease without esophagitis] Onset: 03-15-2017 Resolved: 07-16-2022 07-16-2022 Chronic Essential hypertension (5 sources) Essential hypertension; Translations: [Essential (primary) hypertension] Onset: 04-04-2018 09-03-2023 Chronic Fever of unknown origin (1 source) Fever; Translations: [Fever, unspecified] Onset: 10-25-2023 10-25-2023 Episodic Fluid and electrolyte disorders (3 sources) Dehydration; Translations: [Dehydration] Onset: 03-25-2023 05-05-2023 Episodic Fracture of upper limb (3 sources) Other displaced fracture of base of first metacarpal bone, left hand, initial encounter for closed fracture; Translations: [OTH DSP FX BASE 1ST MC BN LH INT CL] Onset: 04-06-2022 Resolved: 04-09-2022 Episodic Genitourinary symptoms and ill-defined conditions (1 source) Polyuria; Translations: [Polyuria] Onset: 11-11-2023 11-11-2023 Episodic Malaise and fatigue (3 sources) Right hemiparesis; Translations: [Weakness] Onset: 07-16-2022 07-16-2022 Episodic Mood disorders (20 sources) Severe depressed bipolar I disorder; Translations: [Recurrent major depressive episodes, mild ] Onset: 05-14-2019 05-14-2019 Chronic Nutritional deficiencies (7 sources) Vitamin D deficiency; Translations: [Vitamin D deficiency, unspecified] Onset: 11-15-2017 09-03-2023 Chronic Open wounds of extremities (1 source) Laceration of toe of right foot; Translations: [Laceration without foreign body of right lesser toe(s) without damage to nail, initial encounter] Onset: 10-04-2023 10-04-2023 Episodic Other aftercare (5 sources) 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; Translations: [OTH [facility]DC CURRENT DRUG THERAPY] Onset: 12-28-2021 Episodic Other aftercare (1 source) Long-term current use of drug therapy; Translations: [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] 05-05-2023 Episodic Other circulatory disease (3 sources) Low blood pressure; Translations: [Low Blood Pressure] 05-01-2023 Episodic Other connective tissue disease (1 source) Rhabdomyolysis; Translations: [Rhabdomyolysis] Onset: 10-04-2023 10-04-2023 Episodic Other endocrine disorders (1 source) Hypoadrenalism; Translations: [Unspecified adrenocortical insufficiency] Onset: 10-15-2023 10-15-2023 Chronic Other injuries and conditions due to external causes (3 sources) Unspecified injury of left wrist, hand and finger(s), initial encounter; Translations: [UNS INJ LT WRIST HAND FINGERS INIT] Onset: 04-05-2022 Episodic Other liver diseases (4 sources) Steatosis of liver; Translations: [Fatty (change of) liver, not elsewhere classified] Onset: 10-04-2023 10-04-2023 Chronic Other liver diseases (1 source) Fatty (change of) liver, not elsewhere classified Chronic Other liver diseases (1 source) Hepatic fibrosis; Translations: [Liver fibrosis] Chronic Other liver diseases (2 sources) Elevated liver enzymes level; Translations: [Abnormal levels of other serum enzymes] Episodic Other nervous system disorders (1 source) Metabolic encephalopathy; Translations: [Metabolic encephalopathy] Onset: 11-04-2023 11-04-2023 Chronic Other nervous system disorders (7 sources) Toxic metabolic encephalopathy; Translations: [Toxic metabolic encephalopathy] Onset: 07-16-2022 Resolved: 09-03-2023 05-14-2019 Episodic Other nutritional; endocrine; and metabolic disorders (4 sources) Body mass index 30+ - obesity; Translations: [Body mass index (BMI) 32.0-32.9, adult] Chronic Other nutritional; endocrine; and metabolic disorders (1 source) Severe obesity; Translations: [Morbid (severe) obesity due to excess calories] 09-03-2023 Chronic Other nutritional; endocrine; and metabolic disorders (2 sources) Obesity caused by energy imbalance; Translations: [Other obesity due to excess calories] Onset: 07-16-2022 07-16-2022 Chronic Other nutritional; endocrine; and metabolic disorders (1 source) Body mass index (BMI) 35.0-35.9, adult; Translations: [Body mass index (BMI) 35.0-35.9, adult] Onset: 02-05-2024 Chronic Other nutritional; endocrine; and metabolic disorders (1 source) Morbid (severe) obesity due to excess calories; Translations: [Morbid (severe) obesity due to excess calories] Onset: 09-03-2023 Chronic Other nutritional; endocrine; and metabolic disorders (1 source) Body mass index (BMI) 38.0-38.9, adult; Translations: [Body mass index (BMI) 38.0-38.9, adult] Onset: 09-03-2023 Chronic Paralysis (4 sources) Right hemiparesis; Translations: [Right sided weakness] 05-13-2019 Chronic Juany-; endo-; and myocarditis; cardiomyopathy (except that caused by tuberculosis or sexually transmitted disease) (8 sources) Cardiac tamponade; Translations: [Cardiac tamponade] Onset: 10-03-2023 10-25-2023 Episodic Pneumonia (except that caused by tuberculosis or sexually transmitted disease) (2 sources) Pneumonia due to Klebsiella pneumoniae; Translations: [Pneumonia due to Klebsiella pneumoniae] Onset: 10-28-2023 10-28-2023 Episodic Pulmonary heart disease (1 source) Chronic pulmonary embolism; Translations: [Chronic pulmonary embolism] Onset: 12-13-2023 Chronic Pulmonary heart disease (2 sources) Other pulmonary embolism without acute cor pulmonale; Translations: [Acute pulmonary embolism] Onset: 10-12-2023 10-12-2023 Episodic Residual codes; unclassified (2 sources) Obstructive sleep apnea syndrome; Translations: [Obstructive sleep apnea (adult) (pediatric)] Onset: 08-08-2018 07-16-2022 Chronic Residual codes; unclassified (1 source) Retrograde amnesia; Translations: [RETROGRADE AMNESIA] Onset: 01-10-2022 Episodic Residual codes; unclassified (2 sources) Alcoholism; Translations: [Alcohol use disorder] 06-08-2023 Episodic Respiratory failure; insufficiency; arrest (adult) (1 source) Dependence on ventilator; Translations: [Dependence on respirator [ventilator] status] Onset: 10-25-2023 10-25-2023 Chronic Respiratory failure; insufficiency; arrest (adult) (11 sources) Acute respiratory failure; Translations: [Acute respiratory failure with hypoxia] Onset: 05-12-2019 Resolved: 09-03-2023 05-14-2019 Episodic Septicemia (except in labor) (8 sources) Sepsis; Translations: [Sepsis, unspecified organism] Onset: 05-12-2019 Resolved: 05-14-2019 05-14-2019 Episodic Shock (1 source) Severe sepsis with septic shock; Translations: [Severe sepsis with septic shock] Onset: 10-13-2023 Episodic Substance-related disorders (1 source) Other psychoactive substance abuse, uncomplicated; Translations: [Polysubstance abuse (HCC)] Onset: 03-25-2023 Chronic Substance-related disorders (2 sources) Finding related to substance use; Translations: [Other stimulant use, unspecified, uncomplicated] 05-05-2023 Episodic Suicide and intentional self-inflicted injury (5 sources) Suicidal ideations; Translations: [Suicide attempt ] Onset: 07-16-2022 07-16-2022 Episodic Suicide and intentional self-inflicted injury (2 sources) Suicide attempt ; Translations: [Suicide attempt] 05-16-2019 Thyroid disorders (1 source) Hypothyroidism, unspecified; Translations: [Hypothyroidism, unspecified] Onset: 01-03-2024 Chronic Unclassified (1 source) Transaminitis; Translations: [Transaminitis] Onset: 03-25-2023 Unclassified (4 sources) Detoxification therapy; Translations: [Detoxification Therapy] 05-01-2023 Unclassified (2 sources) Alcohol use, unspecified, uncomplicated; Translations: [Alcohol use, unspecified, uncomplicated] Onset: 06-07-2023 Unclassified (1 source) Encounter for screening for malignant neoplasm of colon; Translations: [Encounter for screening for malignant neoplasm of colon] Onset: 01-24-2023 Unclassified (1 source) Other pericardial effusion (noninflammatory); Translations: [Other pericardial effusion (noninflammatory)] Onset: 10-26-2023 Unclassified (1 source) skilled nursing discharge Onset: 02-05-2024 Unclassified (1 source) Annual Exam Onset: 09-03-2023 Past or Other Problems Problem Classification Problem Date Documented Da te Episodic/Chronic Abdominal pain (2 sources) Generalized abdominal pain; Translations: [Generalized abdominal pain] Onset: 05-20-2018 Resolved: 09-03-2023 09-03-2023 Episodic Anal and rectal conditions (2 sources) Rectal polyp; Translations: [Rectal polyp] Onset: 05-21-2018 05-21-2018 Episodic Aspiration pneumonitis; food/vomitus (8 sources) Aspiration pneumonia; Translations: [Pneumonitis due to inhalation of food and vomit] Onset: 05-12-2019 Resolved: 09-03-2023 05-12-2019 Episodic Gastritis and duodenitis (4 sources) Gastritis; Translations: [Gastritis, unspecified, without bleeding] Onset: 05-21-2018 05-21-2018 Episodic Immunizations and screening for infectious disease (2 sources) Needs influenza immunization; Translations: [Encounter for immunization] Onset: 09-03-2023 09-03-2023 Episodic Mood disorders (2 sources) Mood disorders Onset: 09-03-2023 09-03-2023 Nausea and vomiting (5 sources) Nausea and vomiting; Translations: [Nausea & Vomiting] Onset: 05-20-2018 05-01-2023 Episodic Other and unspecified benign neoplasm (2 sources) Tubular adenoma of colon; Translations: [Benign neoplasm of colon, unspecified] Onset: 06-02-2018 07-16-2022 Episodic Other connective tissue disease (5 sources) Non-traumatic rhabdomyolysis; Translations: [Rhabdomyolysis] Onset: 05-12-2019 Resolved: 05-14-2019 05-14-2019 Episodic Other gastrointestinal disorders (2 sources) Patient encounter status; Translations: [Change in bowel habit] Onset: 05-20-2018 05-20-2018 Episodic Other screening for suspected conditions (not mental disorders or infectious disease) (3 sources) Abnormal liver function; Translations: [Abnormal results of liver function studies] Onset: 04-17-2022 09-03-2023 Episodic Residual codes; unclassified (5 sources) Altered mental status; Translations: [Altered mental status, unspecified] Onset: 05-12-2019 Resolved: 05-14-2019 05-14-2019 Episodic Unclassified (1 source) Liver fibrosis; Translations: [Liver fibrosis] Unclassified (1 source) Liver fibrosis K74.00 Procedures Date Procedure Procedure Detail Performing Clinician Start: 12-13-2023 Blood count complete automated Nichole Valenzuela MD Work Phone: Start: 12-12-2023 Comprehensive metabo lic panel Nichole Valenzuela MD Work Phone: Start: 12-11-2023 Culture bacterial quanttative colony count urine Nichole Valenzuela MD Work Phone: Start: 12-11-2023 Blood count complete automated Nichole Valenzuela MD Work Phone: Start: 12-10-2023 Blood count complete automated Nichole Valenzuela MD Work Phone: Start: 12-09-2023 Comprehensive metabo lic panel Kemar Ballesteros MD Work Phone: Start: 12-07-2023 Basic metabolic pane l calcium total Alec Albarran MD Work Phone: Start: 12-06-2023 Assay of lactate Two Dot Ángel tipton MD Work Phone: Start: 12-06-2023 C-reactive protein Alec Albarran MD Work Phone: Start: 12-05-2023 Radiologic exam ches t single view Karissa Abraham MANAGER OF PMO - FULL [employer] SOFTWARE ENGINEER Work Phone: Start: 12-05-2023 Urnls dip stick/tabl et rgnt auto w/o microscopy Karissa Abraham MANAGER OF PMO - F[employer] SOFTWARE ENGINEER Work Phone: Start: 12-05-2023 Comprehensive metabo lic panel Kemar Ballesteros MD Work Phone: Start: 12-02-2023 Assay of ammonia Nichole Valenzuela MD Work Phone: Start: 12-02-2023 Comprehensive metabo lic panel Kemar Ballesteros MD Work Phone: Start: 11-30-2023 Urnls dip stick/tabl et rgnt auto w/o microscopy Kemar Ballesteros MD Work Phone: Start: 11-28-2023 Comprehensive metabo lic panel Kemar Ballesteros MD Work Phone: Start: 11-25-2023 Culture bacterial quanttative colony count urine Alec Albarran MD Work Phone: Start: 11-25-2023 Comprehensive metabo lic panel Selina Harrison MANAGER OF PMO - F[employer] SOFTWARE ENGINEER Work Phone: Start: 11-23-2023 Blood count complete automated Kemar Ballesteros MD Work Phone: Start: 11-23-2023 Radiologic exam ches t single view Kemar Ballesteros MD Work Phone: Start: 11-23-2023 Urinalysis microscopic only Karissa Abraham MANAGER OF PMO - F[employer] SOFTWARE ENGINEER Work Phone: Start: 11-23-2023 Urnls dip stick/tabl et rgnt auto w/o microscopy Karissa Abraham MANAGER OF PMO - F[employer] SOFTWARE ENGINEER Work Phone: Start: 11-22-2023 Radiologic exam ches t single view Karissa Abraham MANAGER OF PMO - F[employer] SOFTWARE ENGINEER Work Phone: Start: 11-22-2023 Comprehensive metabo lic panel Kemar Ballesteros MD Work Phone: Start: 11-21-2023 Assay of troponin quantitative Karissa Abraham MANAGER OF PMO - F[employer] SOFTWARE ENGINEER Work Phone: Start: 11-21-2023 Assay of troponin quantitative Kemar Ballesteros MD Work Phone: Start: 11-21-2023 Comprehensive metabo lic panel Kemar Ballesteros MD Work Phone: Start: 09-03-2023 Adult depression scr eening assessment Shakeel Kaye DO Work Phone: Start: 05-02-2023 Complete blood count with white cell differential, automated Josiah Linder MD Work Phone: Start: 05-02-2023 Comprehensive metabo lic panel Josiah Linder MD Work Phone: Start: 05-01-2023 Potassium [Moles/vol ume] in Serum or Plasma Josiah Linder MD Work Phone: Start: 05-01-2023 Ct cervical spine w/ o contrast material Tomasa Tinajero PA-C Start: 05-01-2023 Ct head/brain w/o co ntrast material Tomasa Tinajero PA-C Start: 05-01-2023 Acetaminophen [Mass/ volume] in Serum or Plasma Tomasa Tinajero PA-C Start: 05-01-2023 Basic metabolic pane l calcium total Tomasa Tinajero MIRI Start: 05-01-2023 Complete blood count with white cell differential, automated Tomasa Hernandez Lior CHERY Start: 05-01-2023 DRUG SCREEN,URINE Tomasa Hernandez Lior CHERY Start: 05-01-2023 Ethanol [Mass/volume ] in Serum or Plasma Tomasa Hernandez Lior CHERY Start: 05-01-2023 Magnesium [Mass/volu me] in Serum or Plasma Tomasa Hernandez Lior CHERY Start: 05-01-2023 Salicylates [Mass/vo lume] in Serum or Plasma Tomasa Hernandez Lior CHERY Start: 05-01-2023 Urinalysis complete W Reflex Culture panel - Urine Tomasa Hernandez Lior CHERY Start: 01-24-2023 Screening colonoscopy D O Shakeel Kaye Work Phone: Start: 08-22-2022 Ultrasound elastogra phy of liver DO Lee Mtz Work Phone: Start: 06-06-2022 Plain X-ray of left hand DO Lee Mtz Work Phone: Start: 05-08-2022 Plain X-ray of left hand DO Lee Mtz Work Phone: Start: 04-09-2022 Plain X-ray of left hand DO Lee Mtz Work Phone: Start: 05-18-2019 RHYTHM STRIP REPORT Hpf Scanning Start: 05-16-2019 Assay of free thyroxine Martha Emanuel Work Phone: Start: 05-16-2019 Assay of thyroid stimulating hormone tsh Martha Emanuel Work Phone: Start: 05-16-2019 Comprehensive metabo lic panel Tristin Carl Work Phone: Start: 05-16-2019 Drug assay valproic dipropylacetic acid total Brentkatarina Meseretcarol ann Work Phone: Start: 05-16-2019 Hemoglobin glycosylated a1c Martha Emanuel Work Phone: Start: 05-16-2019 Lipid panel Martha escalona Work Phone: Start: 05-15-2019 Assay of magnesium Josiah Edmond Work Phone: Start: 05-15-2019 Blood count complete auto&auto difrntl wbc Neda Edmond Work Phone: Start: 05-15-2019 Creatine kinase total L letha Edmond Work Phone: Start: 05-14-2019 Mri brain brain stem w/o contrast material Chelle Abdi Work Phone: Start: 05-14-2019 Blood count complete auto&auto difrntl wbc Neda Edmond Work Phone: Start: 05-14-2019 Creatine kinase total L letha Edmond Work Phone: Start: 05-13-2019 End: 05-13-2019 EXTUBATION Neda Edmond Work Phone: Start: 05-13-2019 RHYTHM STRIP REPORT [facility] Scanning Start: 05-13-2019 ARTERIAL BLOOD GAS, POC Katrina Joe Work Phone: Start: 05-13-2019 Gluc bld gluc mntr d ev cleared fda spec home use Katrina Heath Work Phone: Start: 05-13-2019 Blood count complete auto&auto difrntl wbc Neda Edmond Work Phone: Start: 05-13-2019 Creatine kinase total L letha Edmond Work Phone: Start: 05-13-2019 Myoglobin Neda rose Work Phone: Start: 05-13-2019 Ct cervical spine w/ o contrast material Neda Edmond Work Phone: Start: 05-13-2019 C-reactive protein Tonio swain Gino Work Phone: Start: 05-13-2019 LACTATE, SEPSIS Becky Christian Work Phone: Start: 05-12-2019 Ecg routine ecg w/le ast 12 lds i&r only Neda Edmond Work Phone: Start: 05-12-2019 EKG REPORT Hpf Scanni ng Start: 05-12-2019 Culture bacterial bl ood aerobic w/id isolates Neda Edmond Work Phone: Start: 05-12-2019 Cul bact xcpt urine blood/stool aerobic isol Neda Edmond Work Phone: Start: 05-12-2019 Iadna s aureus methi cillin resist amp probe tq Katrina Heath Work Phone: Start: 05-12-2019 Assay of ammonia Neda Edmond Work Phone: Start: 05-12-2019 Assay of lactate Neda Edmond Work Phone: Start: 05-12-2019 Assay of magnesium Josiah Edmond Work Phone: Start: 05-12-2019 Blood count complete auto&auto difrntl wbc Neda Edmond Work Phone: Start: 05-12-2019 Calcium ionized Neda brito Work Phone: Start: 05-12-2019 Comprehensive metabo lic panel Neda Edmond Work Phone: Start: 05-12-2019 Creatine kinase total L letha Edmond Work Phone: Start: 05-12-2019 Myoglobin Neda rose Work Phone: Start: 05-12-2019 Prothrombin time Neda Edmond Work Phone: Start: 05-12-2019 Thromboplastin time partial plasma/whole blood Neda Edmond Work Phone: Start: 05-12-2019 TOX SCR, BLD, ED Neda Edmond Work Phone: Start: 05-12-2019 Urinalysis microscopic only Neda Edmond Work Phone: Start: 05-12-2019 Urnls dip stick/tabl et rgnt auto w/o microscopy Neda Edmond Work Phone: Start: 05-12-2019 Cul prsmptv pthgnc o rganism scrn w/colony estimj London Lanier Work Phone: Start: 05-12-2019 Culture bacterial bl ood aerobic w/id isolates Neda Edmond Work Phone: Start: 05-12-2019 Radiologic exam ches t single view Neda Edmond Work Phone: Start: 05-12-2019 ARTERIAL BLOOD GAS, POC Katrina Joe Work Phone: Diabetes mellitus screening Elizabeth Dempsey Other Hyperlipidemia screening Col kasi Dempsey Other Results Test Name Value Interpretation Reference Range Facility Office Visiton 02-21-2024 Follow-up visit [id number] Guille Polanco 1980 M Date Provider Department Center 02/21/2024 [id number] WEBB Family History Problem Relation Age of Onset Hypertension Mother Diabetes Mother Hypertension Father Cancer Father Stroke Maternal Grandmother Coronary artery disease Maternal Grandfather Stroke Maternal Grandfather Family Status - Relation Status Age at Mother Father Maternal Grandmother Maternal Grandfather Level of Service:32757 [place] OFFICE/OUTPATIENT ESTABLISHED MOD MDM 30 MIN Normal [facility] CBCon 12-13-2023 Erythrocyte distribution width (RBC) [Ratio] 16.2 % High 11.5 - 14.9 % [facility] Hematocrit (Bld) [Volume fraction] 35.4 % Low 41 - 53 % [facility] Hemoglobin (Bld) [Mass/Vol] 11.3 g/dL Low 13.5 - 17.5 g/dL [facility] Interpretation and review of laboratory results Abnormal [facility] MCH (RBC) [Entitic mass] 27.4 pg 26 - 34 pg [facility] MCHC (RBC) [Mass/Vol] 32.0 g/dL 31 - 37 g/dL [facility] MCV (RBC) [Entitic vol] 85.5 fL 80 - 100 fL [facility] Platelet mean volume (Bld) [Entitic vol] 8.3 fL 6.0 - 12.0 fL [facility] Platelets (Bld) [#/Vol] 558 10*3/uL High [facility] RBC (Bld) [#/Vol] 4.14 10*6/uL Low 4.5 - 5.9 m/uL [facility] WBC other (Bld) [#/Vol] 12.6 High [facility] CBCon 12-12-2023 Erythrocyte distribution width (RBC) [Ratio] 16.2 % High 11.5 - 14.9 % [facility] Hematocrit (Bld) [Volume fraction] 33.0 % Low 41 - 53 % [facility] Hemoglobin (Bld) [Mass/Vol] 10.7 g/dL Low 13.5 - 17.5 g/dL [facility] MCH (RBC) [Entitic mass] 28.0 pg 26 - 34 pg [facility] MCHC (RBC) [Mass/Vol] 32.4 g/dL 31 - 37 g/dL B ON [facility] MCV (RBC) [Entitic vol] 86.4 fL 80 - 100 fL [facility] Platelet mean volume (Bld) [Entitic vol] 8.5 fL 6.0 - 12.0 fL [facility] Platelets (Bld) [#/Vol] 515 10*3/uL High [facility] RBC (Bld) [#/Vol] 3.83 10*6/uL Low 4.5 - 5.9 m/uL [facility] WBC other (Bld) [#/Vol] 16.3 High [facility] Comprehensive Metabolic Pane jordan 12-12-2023 Albumin [Mass/Vol] 3.3 g/dL Low 3.5 - 5.2 g/dL [facility] ALP [Catalytic activity/Vol] 145 U/L High 40 - 129 U/L [facility] ALT [Catalytic activity/Vol] 16 U/L 5 - 41 U/L [facility] Anion gap [Moles/Vol] 13 mmol/L 9 - 17 mmol/L [facility] AST [Catalytic activity/Vol] 25 U/L NINF - 40 U/L [facility] Bilirubin [Mass/Vol] 0.3 mg/dL 0.3 - 1 .2 mg/dL [facility] Calcium [Mass/Vol] 8.9 mg/dL 8.6 - 10. 4 mg/dL [facility] Chloride [Moles/Vol] 99 mmol/L 98 - 10 7 mmol/L [facility] CO2 [Moles/Vol] 26 mmol/L 20 - 31 mmol/L [facility] Creatinine [Mass/Vol] 0.8 mg/dL 0.7 - 1.2 mg/dL [facility] GFR/1.73 sq M.predicted MDRD (S/P/Bld) [Vol rate/Area] - PINF [facility] Comment on above: These results are not intended for use in patients <18 years of age. eGFR results are calculated without a race factor using the 2020 CKD-EPI equation. Careful clinical correlation is recommended, particularly when comparing to results calculated using previous equations. The CKD-EPI equation is less accurate in patients with extremes of muscle mass, extra-renal metabolism of creatine, excessive creatine ingestion, or following therapy that affects renal tubular secretion. Glucose [Mass/Vol] 84 mg/dL 70 - 99 mg/dL [facility] Potassium [Moles/Vol] 3.7 mmol/L 3.7 - 5.3 mmol/L [facility] Protein [Mass/Vol] 6.6 g/dL 6.4 - 8.3 g/dL [facility] Sodium [Moles/Vol] 138 mmol/L 135 - 144 mmol/L [facility] Urea nitrogen [Mass/Vol] 11 mg/dL 6 - 20 mg/dL [facility] Culture, Urineon 12-12-2023 Interpretation and review of laboratory results Abnormal [facility] Microorganism identified Cx Nom (Unsp spec) KLEBSIELLA PNEUMONIAE >100,000 CFU/ML Abnormal [facility] Specimen Description .CATHETERIZED URINE [facility] No Panel Informationon 12-11 Interpretation and review of laboratory results Abnormal [facility] CBCon 12-11-2023 Erythrocyte distribution width (RBC) [Ratio] 16.7 % High 11.5 - 14.9 % [facility] Hematocrit (Bld) [Volume fraction] 35.2 % Low 41 - 53 % [facility] Hemoglobin (Bld) [Mass/Vol] 11.2 g/dL Low 13.5 - 17.5 g/dL [facility] Interpretation and review of laboratory results Abnormal [facility] MCH (RBC) [Entitic mass] 27.5 pg 26 - 34 pg [facility] MCHC (RBC) [Mass/Vol] 31.9 g/dL 31 - 37 g/dL B ON [facility] MCV (RBC) [Entitic vol] 86.5 fL 80 - 100 fL [facility] Platelet mean volume (Bld) [Entitic vol] 8.1 fL 6.0 - 12.0 fL [facility] Platelets (Bld) [#/Vol] 577 10*3/uL High [facility] RBC (Bld) [#/Vol] 4.07 10*6/uL Low 4.5 - 5.9 m/uL [facility] WBC other (Bld) [#/Vol] 20.9 High [facility] CBCon 12-10-2023 Erythrocyte distribution width (RBC) [Ratio] 16.2 % High 11.5 - 14.9 % [facility] Hematocrit (Bld) [Volume fraction] 34.2 % Low 41 - 53 % [facility] Hemoglobin (Bld) [Mass/Vol] 11.1 g/dL Low 13.5 - 17.5 g/dL [facility] Interpretation and review of laboratory results Abnormal [facility] MCH (RBC) [Entitic mass] 28.1 pg 26 - 34 pg [facility] MCHC (RBC) [Mass/Vol] 32.3 g/dL 31 - 37 g/dL B ON [facility] MCV (RBC) [Entitic vol] 86.8 fL 80 - 100 fL [facility] Platelet mean volume (Bld) [Entitic vol] 8.4 fL 6.0 - 12.0 fL [facility] Platelets (Bld) [#/Vol] 531 10*3/uL High [facility] RBC (Bld) [#/Vol] 3.94 10*6/uL Low 4.5 - 5.9 m/uL [facility] WBC other (Bld) [#/Vol] 13.2 High [facility] CBCon 12-09-2023 Erythrocyte distribution width (RBC) [Ratio] 16.2 % High 11.5 - 14.9 % [facility] Hematocrit (Bld) [Volume fraction] 35.3 % Low 41 - 53 % [facility] Hemoglobin (Bld) [Mass/Vol] 11.1 g/dL Low 13.5 - 17.5 g/dL [facility] MCH (RBC) [Entitic mass] 27.6 pg 26 - 34 pg [facility] MCHC (RBC) [Mass/Vol] 31.5 g/dL 31 - 37 g/dL B ON [facility] MCV (RBC) [Entitic vol] 87.5 fL 80 - 100 fL [facility] Platelet mean volume (Bld) [Entitic vol] 8.4 fL 6.0 - 12.0 fL [facility] Platelets (Bld) [#/Vol] 574 10*3/uL High [facility] RBC (Bld) [#/Vol] 4.04 10*6/uL Low 4.5 - 5.9 m/uL [facility] WBC other (Bld) [#/Vol] 13.6 High [facility] Comprehensive Metabolic Pane jordan 12-09-2023 Albumin [Mass/Vol] 3.6 g/dL 3.5 - 5.2 g/dL [facility] ALP [Catalytic activity/Vol] 128 U/L 40 - 129 U/L [facility] ALT [Catalytic activity/Vol] 19 U/L 5 - 41 U/L [facility] Anion gap [Moles/Vol] 14 mmol/L 9 - 17 mmol/L [facility] AST [Catalytic activity/Vol] 24 U/L NINF - 40 U/L [facility] Bilirubin [Mass/Vol] 0.3 mg/dL 0.3 - 1 .2 mg/dL [facility] Calcium [Mass/Vol] 9.2 mg/dL 8.6 - 10. 4 mg/dL [facility] Chloride [Moles/Vol] 100 mmol/L 98 - 10 7 mmol/L [facility] CO2 [Moles/Vol] 27 mmol/L 20 - 31 mmol/L [facility] Creatinine [Mass/Vol] 0.8 mg/dL 0.7 - 1.2 mg/dL [facility] GFR/1.73 sq M.predicted MDRD (S/P/Bld) [Vol rate/Area] - PINF [facility] Comment on above: These results are not intended for use in patients <18 years of age. eGFR results are calculated without a race factor using the 2020 CKD-EPI equation. Careful clinical correlation is recommended, particularly when comparing to results calculated using previous equations. The CKD-EPI equation is less accurate in patients with extremes of muscle mass, extra-renal metabolism of creatine, excessive creatine ingestion, or following therapy that affects renal tubular secretion. Glucose [Mass/Vol] 55 mg/dL Low 70 - 99 mg/dL [facility] Potassium [Moles/Vol] 3.7 mmol/L 3.7 - 5.3 mmol/L [facility] Protein [Mass/Vol] 6.7 g/dL 6.4 - 8.3 g/dL [facility] Sodium [Moles/Vol] 141 mmol/L 135 - 144 mmol/L [facility] Urea nitrogen [Mass/Vol] 8 mg/dL 6 - 20 mg/dL [facility] Cult,Mycobacteriaon 12-09-19 24 Cult,Mycobacteria Specimen Description .BRONCHIAL WASHINGS Direct Exam NO ACID FAST BACILLI SEEN (CONCENTRATED SMEAR) Culture NO GROWTH 48 DAYS Report Status FINAL 12/09/2023 Normal [facility] Comment on above: Performed By: #### A ####[facility] [id number] [id number] [facility] Director: Boo Vinson MD Magnesiumon 12-09-2023 Magnesium [Mass/Vol] 1.9 mg/dL 1.6 - 2 .6 mg/dL [facility] No Panel Informationon 12-08 Interpretation and review of laboratory results Abnormal [facility] Phosphoruson 12-09-2023 Phosphate [Mass/Vol] 4.2 mg/dL 2.5 - 4 .5 mg/dL [facility] Basic Metabolic Panelon Anion gap [Moles/Vol] 13 mmol/L 9 - 17 mmol/L [facility] Calcium [Mass/Vol] 9.0 mg/dL 8.6 - 10. 4 mg/dL [facility] Chloride [Moles/Vol] 102 mmol/L 98 - 10 7 mmol/L [facility] CO2 [Moles/Vol] 25 mmol/L 20 - 31 mmol/L [facility] Creatinine [Mass/Vol] 0.7 mg/dL 0.7 - 1.2 mg/dL [facility] GFR/1.73 sq M.predicted MDRD (S/P/Bld) [Vol rate/Area] - PINF [facility] Comment on above: These results are not intended for use in patients <18 years of age. eGFR results are calculated without a race factor using the 2020 CKD-EPI equation. Careful clinical correlation is recommended, particularly when comparing to results calculated using previous equations. The CKD-EPI equation is less accurate in patients with extremes of muscle mass, extra-renal metabolism of creatine, excessive creatine ingestion, or following therapy that affects renal tubular secretion. Glucose [Mass/Vol] 77 mg/dL 70 - 99 mg/dL [facility] Potassium [Moles/Vol] 4.2 mmol/L 3.7 - 5.3 mmol/L [facility] Sodium [Moles/Vol] 140 mmol/L 135 - 144 mmol/L [facility] Urea nitrogen [Mass/Vol] 10 mg/dL 6 - 20 mg/dL [facility] CBCon 12-07-2023 Erythrocyte distribution width (RBC) [Ratio] 16.4 % High 11.5 - 14.9 % [facility] Hematocrit (Bld) [Volume fraction] 36.7 % Low 41 - 53 % [facility] Hemoglobin (Bld) [Mass/Vol] 11.6 g/dL Low 13.5 - 17.5 g/dL [facility] Interpretation and review of laboratory results Abnormal [facility] MCH (RBC) [Entitic mass] 27.7 pg 26 - 34 pg [facility] MCHC (RBC) [Mass/Vol] 31.5 g/dL 31 - 37 g/dL [facility] MCV (RBC) [Entitic vol] 87.8 fL 80 - 100 fL [facility] Platelet mean volume (Bld) [Entitic vol] 8.8 fL 6.0 - 12.0 fL [facility] Platelets (Bld) [#/Vol] 493 10*3/uL High [facility] RBC (Bld) [#/Vol] 4.18 10*6/uL Low 4.5 - 5.9 m/uL [facility] WBC other (Bld) [#/Vol] 11.1 High [facility] No Panel Informationon 12-06 [facility] C-Reactive Proteinon 024 CRP High sensitivity method [Mass/Vol] 54.4 mg/L High 0.0 - 5.0 mg/L [facility] Lactic Acidon 12-06-2023 Lactate (BldV) [Moles/Vol] 1.0 mmol/L 0.5 - 2.2 mmol/L [facility] No Panel Informationon 12-05 Interpretation and review of laboratory results Abnormal [facility] Procalcitoninon 12-06-2023 Procalcitonin [Mass/Vol] 0.10 ng/mL High NINF - 0.09 ng/mL [facility] Comment on above: Suspected Sepsis: <0.50 ng/mL Low likelihood of sepsis. 0.50-2.00 ng/mL Increased likelihood of sepsis. Antibiotics encouraged. >2.00 ng/mL High risk of sepsis/shock. Antibiotics strongly encouraged. Suspected Lower Resp Tract Infections: <0.24 ng/mL Low likelihood of bacterial infection. >0.24 ng/mL Increased likelihood of bacterial infection. Antibiotics encouraged. With successful antibiotic therapy, PCT levels should decrease rapidly. (Half-life of 24 to 36 hours.) Procalcitonin values from samples collected within the first 6 hours of systemic infection may still be low. Retesting may be indicated. Values from day 1 and day 4 can be entered into the Change in Procalcitonin Calculator ([email or web address]) to determine the patient's Mortality Risk Prognosis In healthy neonates, plasma Procalcitonin (PCT) concentrations increase gradually after , reaching peak values at about 24 hours of age then decrease to normal values below 0.5 ng/mL by 48-72 hours of age. CBCon 12-05-2023 Erythrocyte distribution width (RBC) [Ratio] 16.8 % High 11.5 - 14.9 % [facility] Hematocrit (Bld) [Volume fraction] 35.0 % Low 41 - 53 % [facility] Hemoglobin (Bld) [Mass/Vol] 11.6 g/dL Low 13.5 - 17.5 g/dL [facility] Interpretation and review of laboratory results Abnormal [facility] MCH (RBC) [Entitic mass] 29.0 pg 26 - 34 pg [facility] MCHC (RBC) [Mass/Vol] 33.2 g/dL 31 - 37 g/dL [facility] MCV (RBC) [Entitic vol] 87.2 fL 80 - 100 fL [facility] Platelet mean volume (Bld) [Entitic vol] 8.5 fL 6.0 - 12.0 fL [facility] Platelets (Bld) [#/Vol] 504 10*3/uL High [facility] RBC (Bld) [#/Vol] 4.01 10*6/uL Low 4.5 - 5.9 m/uL [facility] WBC other (Bld) [#/Vol] 18.6 High [facility] Comprehensive Metabolic Pane jordan 12-05-2023 Albumin [Mass/Vol] 3.6 g/dL 3.5 - 5.2 g/dL [facility] ALP [Catalytic activity/Vol] 123 U/L 40 - 129 U/L [facility] ALT [Catalytic activity/Vol] 22 U/L 5 - 41 U/L [facility] Anion gap [Moles/Vol] 14 mmol/L 9 - 17 mmol/L [facility] AST [Catalytic activity/Vol] 22 U/L NINF - 40 U/L [facility] Bilirubin [Mass/Vol] 0.4 mg/dL 0.3 - 1 .2 mg/dL [facility] Calcium [Mass/Vol] 9.0 mg/dL 8.6 - 10. 4 mg/dL [facility] Chloride [Moles/Vol] 101 mmol/L 98 - 10 7 mmol/L [facility] CO2 [Moles/Vol] 26 mmol/L 20 - 31 mmol/L [facility] Creatinine [Mass/Vol] 0.8 mg/dL 0.7 - 1.2 mg/dL [facility] GFR/1.73 sq M.predicted MDRD (S/P/Bld) [Vol rate/Area] - PINF [facility] Comment on above: These results are not intended for use in patients <18 years of age. eGFR results are calculated without a race factor using the 2020 CKD-EPI equation. Careful clinical correlation is recommended, particularly when comparing to results calculated using previous equations. The CKD-EPI equation is less accurate in patients with extremes of muscle mass, extra-renal metabolism of creatine, excessive creatine ingestion, or following therapy that affects renal tubular secretion. Glucose [Mass/Vol] 82 mg/dL 70 - 99 mg/dL [facility] Potassium [Moles/Vol] 3.7 mmol/L 3.7 - 5.3 mmol/L [facility] Protein [Mass/Vol] 6.5 g/dL 6.4 - 8.3 g/dL [facility] Sodium [Moles/Vol] 141 mmol/L 135 - 144 mmol/L [facility] Urea nitrogen [Mass/Vol] 9 mg/dL 6 - 20 mg/dL [facility] No Panel Informationon 12-04 [facility] Portable XR Chest AP single viewon 12-05-2023 Radiology Study observation (narrative) [facility] 1. Cardiomegaly. 2. Low lung volumes with bibasilar atelectasis. [facility] RIS CONSOLIDATED EXAMINATION: ONE XRAY VIEW OF THE CHEST 12/05/2023 12:30 pm COMPARISON: 11/23/2023. HISTORY: ORDERING SYSTEM PROVIDED HISTORY: Elevated WBC r/o infection TECHNOLOGIST PROVIDED HISTORY: Reason for Exam:->Elevated WBC r/o infection Portable?->Yes Height:177.8cm Weight:99.338kg Reason for Exam: Elevated WBC r/o infection; best images done FINDINGS: There are low lung volumes. The heart size is enlarged but unchanged. The pulmonary vasculature is within normal limits. There is increased density involving the lower lung zones. No pneumothoraces are seen. [facility] David Deleon MD - 12/05/2023 EXAMINATION: ONE XRAY VIEW OF THE CHEST 12/05/2023 12:30 pm COMPARISON: 11/23/2023. HISTORY: ORDERING SYSTEM PROVIDED HISTORY: Elevated WBC r/o infection TECHNOLOGIST PROVIDED HISTORY: Reason for Exam:->Elevated WBC r/o infection Portable?->Yes Height:177.8cm Weight:99.338kg Reason for Exam: Elevated WBC r/o infection; best images done FINDINGS: There are low lung volumes. The heart size is enlarged but unchanged. The pulmonary vasculature is within normal limits. There is increased density involving the lower lung zones. No pneumothoraces are seen. IMPRESSION: 1. Cardiomegaly. 2. Low lung volumes with bibasilar atelectasis. [facility] Portable XR Chest AP single viewOrdered By: David Botello on 12-05-2023 [facility] Phone: Urinalysis with Reflex to Cu ltureon 12-05-2023 Bilirubin Ql (U) Negative NEGATIVE [facility] [employer] Clarity (U) Clear Clear [facility] [employer] Color (U) Yellow Yellow [facility] [employer] Comment Microscopic exam not performed based on chemical results unless requested in original order. [facility] [employer] Glucose Test strip (U) [Mass/Vol] Negative NEGATIVE mg/dL [facility] [employer] Hemoglobin Auto test strip Ql (U) Negative NEGATIVE [facility] [employer] Ketones (U) [Mass/Vol] Negative NEGATIVE mg/dL [facility] [employer] Leukocyte esterase Test strip Ql (U) Negative NEGATIVE [facility] [employer] Nitrite Ql (U) Negative NEGATIVE [facility] [employer] pH (U) 5.5 [pH] 5.0 - 8.0 [facility] Protein (U) [Mass/Vol] Negative NEGATIVE mg/dL [facility] Specific gravity (U) [Rel density] 1.014 1.000 - 1.030 [facility] Urobilinogen Qn (U) Normal 0.0 - 1. 0 EU/dL [facility] Ammoniaon 12-02-2023 Ammonia (P) [Moles/Vol] 34 umol/L 16 - 60 umol/L [facility] CBCon 12-02-2023 Erythrocyte distribution width (RBC) [Ratio] 16.3 % High 11.5 - 14.9 % [facility] Hematocrit (Bld) [Volume fraction] 33.9 % Low 41 - 53 % [facility] Hemoglobin (Bld) [Mass/Vol] 11.1 g/dL Low 13.5 - 17.5 g/dL [facility] MCH (RBC) [Entitic mass] 28.6 pg 26 - 34 pg [facility] MCHC (RBC) [Mass/Vol] 32.6 g/dL 31 - 37 g/dL [facility] MCV (RBC) [Entitic vol] 87.9 fL 80 - 100 fL [facility] Platelet mean volume (Bld) [Entitic vol] 8.3 fL 6.0 - 12.0 fL [facility] Platelets (Bld) [#/Vol] 526 10*3/uL High [facility] RBC (Bld) [#/Vol] 3.86 10*6/uL Low 4.5 - 5.9 m/uL [facility] WBC other (Bld) [#/Vol] 9.1 [facility] Comprehensive Metabolic Pane jordan 12-02-2023 Albumin [Mass/Vol] 3.5 g/dL 3.5 - 5.2 g/dL [facility] ALP [Catalytic activity/Vol] 101 U/L 40 - 129 U/L [facility] ALT [Catalytic activity/Vol] 34 U/L 5 - 41 U/L [facility] Anion gap [Moles/Vol] 13 mmol/L 9 - 17 mmol/L [facility] AST [Catalytic activity/Vol] 36 U/L NINF - 40 U/L [facility] Bilirubin [Mass/Vol] 0.3 mg/dL 0.3 - 1 .2 mg/dL [facility] Calcium [Mass/Vol] 9.0 mg/dL 8.6 - 10. 4 mg/dL [facility] Chloride [Moles/Vol] 101 mmol/L 98 - 10 7 mmol/L [facility] CO2 [Moles/Vol] 28 mmol/L 20 - 31 mmol/L [facility] Creatinine [Mass/Vol] 0.7 mg/dL 0.7 - 1.2 mg/dL [facility] GFR/1.73 sq M.predicted MDRD (S/P/Bld) [Vol rate/Area] - PINF [facility] Comment on above: These results are not intended for use in patients <18 years of age. eGFR results are calculated without a race factor using the 2020 CKD-EPI equation. Careful clinical correlation is recommended, particularly when comparing to results calculated using previous equations. The CKD-EPI equation is less accurate in patients with extremes of muscle mass, extra-renal metabolism of creatine, excessive creatine ingestion, or following therapy that affects renal tubular secretion. Glucose [Mass/Vol] 96 mg/dL 70 - 99 mg/dL [facility] Potassium [Moles/Vol] 4.2 mmol/L 3.7 - 5.3 mmol/L [facility] Protein [Mass/Vol] 6.2 g/dL Low 6.4 - 8.3 g/dL [facility] Sodium [Moles/Vol] 142 mmol/L 135 - 144 mmol/L [facility] Urea nitrogen [Mass/Vol] 13 mg/dL 6 - 20 mg/dL [facility] Magnesiumon 12-02-2023 Magnesium [Mass/Vol] 1.8 mg/dL 1.6 - 2 .6 mg/dL [facility] No Panel Informationon 12-01 Interpretation and review of laboratory results Abnormal [facility] Phosphoruson 12-02-2023 Phosphate [Mass/Vol] 5.5 mg/dL High 2.5 - 4 .5 mg/dL [facility] Urinalysis with Reflex to Cu ltureon 11-30-2023 Bilirubin Ql (U) Negative NEGATIVE [facility] Clarity (U) Clear Clear [facility] Color (U) Yellow Yellow [facility] Comment Microscopic exam not performed based on chemical results unless requested in original order. [facility] Glucose Test strip (U) [Mass/Vol] Negative NEGATIVE mg/dL [facility] Hemoglobin Auto test strip Ql (U) Negative NEGATIVE [facility] Ketones (U) [Mass/Vol] Negative NEGATIVE mg/dL [facility] Leukocyte esterase Test strip Ql (U) Negative NEGATIVE [facility] Nitrite Ql (U) Negative NEGATIVE [facility] pH (U) 7.5 [pH] 5.0 - 8.0 [facility] Protein (U) [Mass/Vol] Negative NEGATIVE mg/dL [facility] Specific gravity (U) [Rel density] 1.009 1.000 - 1.030 [facility] Urobilinogen Qn (U) Normal 0.0 - 1. 0 EU/dL [facility] CBCon 11-28-2023 Erythrocyte distribution width (RBC) [Ratio] 15.8 % High 11.5 - 14.9 % [facility] Hematocrit (Bld) [Volume fraction] 33.0 % Low 41 - 53 % [facility] Hemoglobin (Bld) [Mass/Vol] 10.8 g/dL Low 13.5 - 17.5 g/dL [facility] MCH (RBC) [Entitic mass] 28.9 pg 26 - 34 pg [facility] MCHC (RBC) [Mass/Vol] 32.6 g/dL 31 - 37 g/dL [facility] MCV (RBC) [Entitic vol] 88.7 fL 80 - 100 fL [facility] Platelet mean volume (Bld) [Entitic vol] 8.6 fL 6.0 - 12.0 fL [facility] Platelets (Bld) [#/Vol] 448 10*3/uL [facility] RBC (Bld) [#/Vol] 3.72 10*6/uL Low 4.5 - 5.9 m/uL [facility] WBC other (Bld) [#/Vol] 8.1 [facility] Comprehensive Metabolic Pane jordan 11-28-2023 Albumin [Mass/Vol] 3.3 g/dL Low 3.5 - 5.2 g/dL [facility] ALP [Catalytic activity/Vol] 94 U/L 40 - 129 U/L [facility] ALT [Catalytic activity/Vol] 22 U/L 5 - 41 U/L [facility] Anion gap [Moles/Vol] 14 mmol/L 9 - 17 mmol/L [facility] AST [Catalytic activity/Vol] 33 U/L NINF - 40 U/L [facility] Bilirubin [Mass/Vol] 0.3 mg/dL 0.3 - 1 .2 mg/dL [facility] Calcium [Mass/Vol] 8.8 mg/dL 8.6 - 10. 4 mg/dL [facility] Chloride [Moles/Vol] 103 mmol/L 98 - 10 7 mmol/L [facility] CO2 [Moles/Vol] 24 mmol/L 20 - 31 mmol/L [facility] Creatinine [Mass/Vol] 0.6 mg/dL Low 0.7 - 1.2 mg/dL [facility] GFR/1.73 sq M.predicted MDRD (S/P/Bld) [Vol rate/Area] - PINF [facility] Comment on above: These results are not intended for use in patients <18 years of age. eGFR results are calculated without a race factor using the 2020 CKD-EPI equation. Careful clinical correlation is recommended, particularly when comparing to results calculated using previous equations. The CKD-EPI equation is less accurate in patients with extremes of muscle mass, extra-renal metabolism of creatine, excessive creatine ingestion, or following therapy that affects renal tubular secretion. Glucose [Mass/Vol] 105 mg/dL High 70 - 99 mg/dL [facility] Potassium [Moles/Vol] 3.8 mmol/L 3.7 - 5.3 mmol/L [facility] Protein [Mass/Vol] 5.8 g/dL Low 6.4 - 8.3 g/dL [facility] Sodium [Moles/Vol] 141 mmol/L 135 - 144 mmol/L [facility] Urea nitrogen [Mass/Vol] 5 mg/dL Low 6 - 20 mg/dL [facility] No Panel Informationon 11-27 Interpretation and review of laboratory results Abnormal [facility] Culture, Urineon 11-26-2023 Microorganism identified Cx Nom (Unsp spec) NO GROWTH [facility] Specimen Description .URINE,STRAIGHT CATHETER [facility] CBCon 11-25-2023 Erythrocyte distribution width (RBC) [Ratio] 15.7 % High 11.5 - 14.9 % [facility] Hematocrit (Bld) [Volume fraction] 33.5 % Low 41 - 53 % [facility] Hemoglobin (Bld) [Mass/Vol] 10.6 g/dL Low 13.5 - 17.5 g/dL [facility] MCH (RBC) [Entitic mass] 28.5 pg 26 - 34 pg [facility] MCHC (RBC) [Mass/Vol] 31.8 g/dL 31 - 37 g/dL [facility] MCV (RBC) [Entitic vol] 89.7 fL 80 - 100 fL [facility] Platelet mean volume (Bld) [Entitic vol] 8.8 fL 6.0 - 12.0 fL [facility] Platelets (Bld) [#/Vol] 382 10*3/uL [facility] RBC (Bld) [#/Vol] 3.73 10*6/uL Low 4.5 - 5.9 m/uL [facility] WBC other (Bld) [#/Vol] 13.3 High [facility] Comprehensive Metabolic Pane jordan 11-25-2023 Albumin [Mass/Vol] 3.7 g/dL 3.5 - 5.2 g/dL [facility] ALP [Catalytic activity/Vol] 92 U/L 40 - 129 U/L [facility] ALT [Catalytic activity/Vol] 14 U/L 5 - 41 U/L [facility] Anion gap [Moles/Vol] 12 mmol/L 9 - 17 mmol/L [facility] AST [Catalytic activity/Vol] 14 U/L NINF - 40 U/L [facility] Bilirubin [Mass/Vol] 0.4 mg/dL 0.3 - 1 .2 mg/dL [facility] Calcium [Mass/Vol] 8.7 mg/dL 8.6 - 10. 4 mg/dL [facility] Chloride [Moles/Vol] 105 mmol/L 98 - 10 7 mmol/L [facility] CO2 [Moles/Vol] 26 mmol/L 20 - 31 mmol/L [facility] Creatinine [Mass/Vol] 0.8 mg/dL 0.7 - 1.2 mg/dL [facility] GFR/1.73 sq M.predicted MDRD (S/P/Bld) [Vol rate/Area] - PINF [facility] Comment on above: These results are not intended for use in patients <18 years of age. eGFR results are calculated without a race factor using the 2020 CKD-EPI equation. Careful clinical correlation is recommended, particularly when comparing to results calculated using previous equations. The CKD-EPI equation is less accurate in patients with extremes of muscle mass, extra-renal metabolism of creatine, excessive creatine ingestion, or following therapy that affects renal tubular secretion. Glucose [Mass/Vol] 93 mg/dL 70 - 99 mg/dL [facility] Potassium [Moles/Vol] 3.7 mmol/L 3.7 - 5.3 mmol/L [facility] Protein [Mass/Vol] 6.2 g/dL Low 6.4 - 8.3 g/dL [facility] Sodium [Moles/Vol] 143 mmol/L 135 - 144 mmol/L [facility] Urea nitrogen [Mass/Vol] 8 mg/dL 6 - 20 mg/dL [facility] Magnesiumon 11-25-2023 Magnesium [Mass/Vol] 2.1 mg/dL 1.6 - 2 .6 mg/dL [facility] No Panel Informationon 11-24 Interpretation and review of laboratory results Abnormal [facility] Phosphoruson 11-25-2023 Phosphate [Mass/Vol] 3.6 mg/dL 2.5 - 4 .5 mg/dL [facility] CBCon 11-23-2023 Erythrocyte distribution width (RBC) [Ratio] 15.7 % High 11.5 - 14.9 % [facility] Hematocrit (Bld) [Volume fraction] 36.5 % Low 41 - 53 % [facility] Hemoglobin (Bld) [Mass/Vol] 11.6 g/dL Low 13.5 - 17.5 g/dL [facility] Interpretation and review of laboratory results Abnormal [facility] MCH (RBC) [Entitic mass] 28.5 pg 26 - 34 pg [facility] MCHC (RBC) [Mass/Vol] 31.8 g/dL 31 - 37 g/dL [facility] MCV (RBC) [Entitic vol] 89.6 fL 80 - 100 fL [facility] Platelet mean volume (Bld) [Entitic vol] 8.3 fL 6.0 - 12.0 fL [facility] Platelets (Bld) [#/Vol] 396 10*3/uL [facility] RBC (Bld) [#/Vol] 4.07 10*6/uL Low 4.5 - 5.9 m/uL [facility] WBC other (Bld) [#/Vol] 19.6 High [facility] Microscopic Urinalysison Bacteria LM Ql (Urine sed) MODERATE Abnormal None [facility] Casts LM.LPF (Urine sed) [#/Area] 0 TO 2 Abnormal None /LPF [facility] Epithelial cells LM.HPF (Urine sed) [#/Area] 0 TO 2 /HPF [facility] RBC LM.HPF (Urine sed) [#/Area] 0 TO 2 0 TO 2 /HPF [facility] WBC LM.HPF (Urine sed) [#/Area] 3 to 5 Abnormal 0 TO 5 /HPF [facility] No Panel Informationon 11-22 Interpretation and review of laboratory results Abnormal [facility] Portable XR Chest AP single viewon 11-23-2023 Radiology Study observation (narrative) [employer] Questionable small r ight pleural effusion with adjacent linear opacities, likely represent atelectasis. [facility] RIS CONSOLIDATED EXAMINATION: ONE XRAY VIEW OF THE CHEST 11/23/2023 5:32 pm COMPARISON: 11/22/2023 HISTORY: ORDERING SYSTEM PROVIDED HISTORY: sepsis work up TECHNOLOGIST PROVIDED HISTORY: Reason for Exam:->sepsis work up Portable?->Yes reg[facility] Reason for portable exam:->regency Height:177.8cm Weight:94.802kg Reason for Exam: sepsis work up FINDINGS: An enteric tube extends below diaphragm, with its distal tip beyond the field of view. The heart is enlarged, least in part due to magnification from portable technique/low lung volumes. There is questionable small right pleural effusion. Adjacent linear opacities likely represent atelectasis. Remainder of lungs are clear. No pneumothorax. [facility] RIS CONSOLIDATED Juan Ernandez MD - 11/23/2023 EXAMINATION: ONE XRAY VIEW OF THE CHEST 11/23/2023 5:32 pm COMPARISON: 11/22/2023 HISTORY: ORDERING SYSTEM PROVIDED HISTORY: sepsis work up TECHNOLOGIST PROVIDED HISTORY: Reason for Exam:->sepsis work up Portable?->Yes [facility] Reason for portable exam:->regency Height:177.8cm Weight:94.802kg Reason for Exam: sepsis work up FINDINGS: An enteric tube extends below diaphragm, with its distal tip beyond the field of view. The heart is enlarged, least in part due to magnification from portable technique/low lung volumes. There is questionable small right pleural effusion. Adjacent linear opacities likely represent atelectasis. Remainder of lungs are clear. No pneumothorax. IMPRESSION: Questionable small right pleural effusion with adjacent linear opacities, likely represent atelectasis. [employer] Portable XR Chest AP single viewOrdered By: Juan Ernandez on 11-23-2023 [employer] Work Phone: Urinalysis with Reflex to Cu ltureon 11-23-2023 Bilirubin Ql (U) Negative Abnormal NEGATIVE [facility] [employer] Clarity (U) Clear Clear [facility] Color (U) Dark Yellow Abnormal Yellow [facility] Glucose Test strip (U) [Mass/Vol] Negative NEGATIVE mg/dL [facility] Hemoglobin Auto test strip Ql (U) TRACE Abnormal NEGATIVE [facility] Ketones (U) [Mass/Vol] TRACE Abnormal NEGATIVE mg/dL [facility] Leukocyte esterase Test strip Ql (U) TRACE Abnormal NEGATIVE [facility] Nitrite Ql (U) Positive Abnormal NEGATIVE [facility] pH (U) 5.0 [pH] 5.0 - 8.0 [facility] Protein (U) [Mass/Vol] Negative NEGATIVE mg/dL [facility] Specific gravity (U) [Rel density] 1.026 1.000 - 1.030 [facility] Urobilinogen Qn (U) Normal 0.0 - 1. 0 EU/dL [facility] XR CHEST PORTABLEon 11-23-19 24 XR CHEST PORTABLE EXAMINATION: ONE XRAY VIEW OF THE CHEST 11/23/2023 5:32 pm COMPARISON: 11/22/2023 HISTORY: ORDERING SYSTEM PROVIDED HISTORY: sepsis work up TECHNOLOGIST PROVIDED HISTORY: Reason for Exam:->sepsis work up Portable?->Yes [facility] Reason for portable exam:->[facility] Height:177.8cm Weight:94.802kg Reason for Exam: sepsis work up FINDINGS: An enteric tube extends below diaphragm, with its distal tip beyond the field of view. The heart is enlarged, least in part due to magnification from portable technique/low lung volumes. There is questionable small right pleural effusion. Adjacent linear opacities likely represent atelectasis. Remainder of lungs are clear. No pneumothorax. IMPRESSION: Questionable small right pleural effusion with adjacent linear opacities, likely represent atelectasis. Interpreted by: Juan Ernandez MD Signed by: Juan Ernandez MD 11/23/23 Final result Normal [facility] [place] Ammoniaon 11-22-2023 Ammonia (P) [Moles/Vol] 29 umol/L 16 - 60 umol/L [facility] CBCon 11-22-2023 Erythrocyte distribution width (RBC) [Ratio] 16.3 % High 11.5 - 14.9 % [facility] Hematocrit (Bld) [Volume fraction] 39.1 % Low 41 - 53 % [facility] Hemoglobin (Bld) [Mass/Vol] 12.7 g/dL Low 13.5 - 17.5 g/dL [facility] MCH (RBC) [Entitic mass] 28.8 pg 26 - 34 pg [facility] MCHC (RBC) [Mass/Vol] 32.4 g/dL 31 - 37 g/dL B ON [facility] MCV (RBC) [Entitic vol] 89.0 fL 80 - 100 fL [facility] Platelet mean volume (Bld) [Entitic vol] 7.3 fL 6.0 - 12.0 fL [facility] Platelets (Bld) [#/Vol] 472 10*3/uL High [facility] RBC (Bld) [#/Vol] 4.39 10*6/uL Low 4.5 - 5.9 m/uL [facility] WBC other (Bld) [#/Vol] 14.3 High [facility] Comprehensive Metabolic Pane jordan 11-22-2023 Albumin [Mass/Vol] 4.4 g/dL 3.5 - 5.2 g/dL [facility] ALP [Catalytic activity/Vol] 105 U/L 40 - 129 U/L [facility] ALT [Catalytic activity/Vol] 23 U/L 5 - 41 U/L [facility] Anion gap [Moles/Vol] 14 mmol/L 9 - 17 mmol/L [facility] AST [Catalytic activity/Vol] 15 U/L NINF - 40 U/L [facility] Bilirubin [Mass/Vol] 0.7 mg/dL 0.3 - 1 .2 mg/dL [facility] Calcium [Mass/Vol] 9.8 mg/dL 8.6 - 10. 4 mg/dL [facility] Chloride [Moles/Vol] 97 mmol/L Low 98 - 10 7 mmol/L [facility] CO2 [Moles/Vol] 27 mmol/L 20 - 31 mmol/L [facility] Creatinine [Mass/Vol] 0.9 mg/dL 0.7 - 1.2 mg/dL [facility] GFR/1.73 sq M.predicted MDRD (S/P/Bld) [Vol rate/Area] - PINF [facility] Comment on above: These results are not intended for use in patients <18 years of age. eGFR results are calculated without a race factor using the 2020 CKD-EPI equation. Careful clinical correlation is recommended, particularly when comparing to results calculated using previous equations. The CKD-EPI equation is less accurate in patients with extremes of muscle mass, extra-renal metabolism of creatine, excessive creatine ingestion, or following therapy that affects renal tubular secretion. Glucose [Mass/Vol] 95 mg/dL 70 - 99 mg/dL [facility] Potassium [Moles/Vol] 4.1 mmol/L 3.7 - 5.3 mmol/L [facility] Protein [Mass/Vol] 7.4 g/dL 6.4 - 8.3 g/dL [facility] Sodium [Moles/Vol] 138 mmol/L 135 - 144 mmol/L [facility] Urea nitrogen [Mass/Vol] 16 mg/dL 6 - 20 mg/dL [facility] Cult,Bloodon 11-22-2023 Cult,Blood Specimen Description .BLOOD Special Requests RT HAND 10 ML Culture NO GROWTH 5 DAYS Report Status FINAL 11/22/2023 [facility] Comment on above: Performed By: #### B C ####[employer] [place] [id number] lab Director: Boo Vinson MD Cult,Blood Specimen Description .BLOOD Special Requests LFT HAND 10 ML Culture NO GROWTH 5 DAYS Report Status FINAL 11/22/2023 [facility] Comment on above: Performed By: #### B C ####[employer] [address] [place] [id number] Lab Director: Boo Vinson MD Hemoglobin A1Con 11-22-2023 Average glucose Estimated from glycated hemoglobin (Bld) [Mass/Vol] 77 mg/dL [facility] Comment on above: The ADA and AACC rec ommend providing the estimated average glucose result to permit better patient understanding of their HBA1c result. HbA1c (Bld) [Mass fraction] 4.3 % 4.0 - 6.0 % [facility] Magnesiumon 11-22-2023 Magnesium [Mass/Vol] 2.0 mg/dL 1.6 - 2 .6 mg/dL [facility] No Panel Informationon 11-21 Interpretation and review of laboratory results Abnormal [facility] Phosphoruson 11-22-2023 Phosphate [Mass/Vol] 5.1 mg/dL High 2.5 - 4 .5 mg/dL [facility] Portable XR Chest AP single viewon 11-22-2023 Radiology Study observation (narrative) [facility] No acute process. [facility] RIS CONSOLIDATED EXAMINATION: ONE XRAY VIEW OF THE CHEST 11/22/2023 8:51 am COMPARISON: 11/19/2023 HISTORY: ORDERING SYSTEM PROVIDED HISTORY: admission cxr TECHNOLOGIST PROVIDED HISTORY: Reason for Exam:->admission cxr Portable?->Yes Height:177.8cm Weight:100.699kg Reason for Exam: new admission FINDINGS: The lungs are without acute focal process. There is no effusion or pneumothorax. The cardiomediastinal silhouette is without acute process. The osseous structures are without acute process. Similar position devices. [facility] RIS CONSOLIDATED Addison Baker MD - 11/22/2023 EXAMINATION: ONE XRAY VIEW OF THE CHEST 11/22/2023 8:51 am COMPARISON: 11/19/2023 HISTORY: ORDERING SYSTEM PROVIDED HISTORY: admission cxr TECHNOLOGIST PROVIDED HISTORY: Reason for Exam:->admission cxr Portable?->Yes Height:177.8cm Weight:100.699kg Reason for Exam: new admission FINDINGS: The lungs are without acute focal process. There is no effusion or pneumothorax. The cardiomediastinal silhouette is without acute process. The osseous structures are without acute process. Similar position devices. IMPRESSION: No acute process. [facility] Portable XR Chest AP single viewOrdered By: Addison Baker on 11-22-2023 [facility] Work Phone: TSHon 11-22-2023 TSH Qn 5.50 m[IU]/L High [facility] Vitamin D 25 Hydroxyon 11-21 25-hydroxyvitamin D3 [Mass/Vol] 24.8 ng/mL Low 30.0 - 100.0 ng/mL [facility] Comment on above: Reference Range: Vitamin D status Range Deficiency <20 ng/mL Mild Deficiency 20-30 ng/mL Sufficiency 30-100 ng/mL Toxicity >100 ng/mL Interpretation and review of laboratory results Abnormal [facility] XR CHEST PORTABLEon 11-22-19 24 XR CHEST PORTABLE EXAMINATION: ONE XRAY VIEW OF THE CHEST 11/22/2023 8:51 am COMPARISON: 11/19/2023 HISTORY: ORDERING SYSTEM PROVIDED HISTORY: admission cxr TECHNOLOGIST PROVIDED HISTORY: Reason for Exam:->admission cxr Portable?->Yes Height:177.8cm Weight:100.699kg Reason for Exam: new admission FINDINGS: The lungs are without acute focal process. There is no effusion or pneumothorax. The cardiomediastinal silhouette is without acute process. The osseous structures are without acute process. Similar position devices. IMPRESSION: No acute process. Interpreted by: Addison Baker MD Signed by: Addison Baker MD 11/22/23 Final result Normal [facility] CBCon 11-21-2023 Erythrocyte distribution width (RBC) [Ratio] 16.4 % High 11.5 - 14.9 % [facility] Hematocrit (Bld) [Volume fraction] 35.2 % Low 41 - 53 % [facility] Hemoglobin (Bld) [Mass/Vol] 11.4 g/dL Low 13.5 - 17.5 g/dL [facility] MCH (RBC) [Entitic mass] 29.1 pg 26 - 34 pg [facility] MCHC (RBC) [Mass/Vol] 32.4 g/dL 31 - 37 g/dL B ON [facility] MCV (RBC) [Entitic vol] 89.8 fL 80 - 100 fL [facility] Platelet mean volume (Bld) [Entitic vol] 7.5 fL 6.0 - 12.0 fL [facility] Platelets (Bld) [#/Vol] 575 10*3/uL High [facility] RBC (Bld) [#/Vol] 3.92 10*6/uL Low 4.5 - 5.9 m/uL [facility] WBC other (Bld) [#/Vol] 18.1 High [facility] Comprehensive Metabolic Pane jordan 11-21-2023 Albumin [Mass/Vol] 4.4 g/dL 3.5 - 5.2 g/dL [facility] ALP [Catalytic activity/Vol] 115 U/L 40 - 129 U/L [facility] ALT [Catalytic activity/Vol] 32 U/L 5 - 41 U/L [facility] Anion gap [Moles/Vol] 15 mmol/L 9 - 17 mmol/L [facility] AST [Catalytic activity/Vol] 19 U/L NINF - 40 U/L [facility] Bilirubin [Mass/Vol] 0.6 mg/dL 0.3 - 1 .2 mg/dL [facility] Calcium [Mass/Vol] 9.6 mg/dL 8.6 - 10. 4 mg/dL [facility] Chloride [Moles/Vol] 97 mmol/L Low 98 - 10 7 mmol/L [facility] CO2 [Moles/Vol] 29 mmol/L 20 - 31 mmol/L [facility] Creatinine [Mass/Vol] 0.8 mg/dL 0.7 - 1.2 mg/dL [facility] GFR/1.73 sq M.predicted MDRD (S/P/Bld) [Vol rate/Area] - PINF [facility] Comment on above: These results are not intended for use in patients <18 years of age. eGFR results are calculated without a race factor using the 2020 CKD-EPI equation. Careful clinical correlation is recommended, particularly when comparing to results calculated using previous equations. The CKD-EPI equation is less accurate in patients with extremes of muscle mass, extra-renal metabolism of creatine, excessive creatine ingestion, or following therapy that affects renal tubular secretion. Glucose [Mass/Vol] 79 mg/dL 70 - 99 mg/dL [facility] Potassium [Moles/Vol] 3.5 mmol/L Low 3.7 - 5.3 mmol/L [facility] Protein [Mass/Vol] 7.2 g/dL 6.4 - 8.3 g/dL [facility] Sodium [Moles/Vol] 141 mmol/L 135 - 144 mmol/L [facility] Urea nitrogen [Mass/Vol] 11 mg/dL 6 - 20 mg/dL [facility] No Panel Informationon 11-20 Interpretation and review of laboratory results Abnormal [facility] Troponinon 11-21-2023 Interpretation and review of laboratory results Abnormal [facility] Interpretation and review of laboratory results Abnormal [facility] Troponin I.cardiac High sensitivity method [Mass/Vol] 27 ng/L High 0 - 22 ng/L [facility] Comment on above: High Sensitivity Tro ponin values cannot be compared with other Troponin methodologies. Troponin I.cardiac High sensitivity method [Mass/Vol] 30 ng/L High 0 - 22 ng/L [facility] Comment on above: High Sensitivity Tro ponin values cannot be compared with other Troponin methodologies. [facility] Basic Metab w/rfx MGon 11-19 Anion gap [Moles/Vol] 15 mmol/L Normal 9-16 [facility] Comment on above: Performed By: #### B MPX, CDP ####[facility] [address] [place] [address] Lab Director: Boo Vinson MD Calcium [Mass/Vol] 9.5 mg/dL Normal 8.6-10.4 [facility] Comment on above: Performed By: #### B MPX, CDP ####[employer] [address] [place] [id number] lab Director: Boo Vinson MD Chloride [Moles/Vol] 101 mmol/L Normal 98-107 [facility] Comment on above: Performed By: #### B MPX, CDP ####[facility] [address] [place], [place] [id number] lab Director: Boo Vinson MD CO2 [Moles/Vol] 26 mmol/L Normal 20-31 [facility] Comment on above: Performed By: #### B MPX, CDP ####[facility] [address] [place] [address] Lab Director: Boo Vinson MD Creatinine [Mass/Vol] 0.8 mg/dL Normal 0.70-1.20 [facility] Comment on above: Performed By: #### B MPX, CDP ####[facility] [address] [place] [address] Lab Director: Boo Visnon MD GFR/1.73 sq M.predicted among non-blacks MDRD (S/P/Bld) [Vol rate/Area] mL/min/{1.73_m2} Normal >60 [facility] Comment on above: Result Comment: Thes e results are not intended for use in patients <18 years of age.eGFR results are calculated without a race factor using the 2020 CKD-EPI equation.Careful clinical correlation is recommended, particularly when comparing to results calculated using previous equations.The CKD-EPI equation is less accurate in patients with extremes of muscle mass, extra-renal metabolism of creatine, excessive creatine ingestion, or following therapy that affects renal tubular secretion. Performed By: #### B MPX, CDP ####[facility] [address] [place] [address] Lab Director: Boo Vinson MD Glucose [Mass/Vol] 89 mg/dL Normal 74-99 [facility] Comment on above: Performed By: #### B MPX, CDP ####[facility] [address] [place] [address] Lab Director: Boo Vinson MD Potassium [Moles/Vol] 3.6 mmol/L Low 3.7-5.3 [facility] Comment on above: Performed By: #### B MPX, CDP ####[facility] [address] [place] [address] Lab Director: Boo Vinson MD Sodium [Moles/Vol] 142 mmol/L Normal 136-145 [facility] Comment on above: Performed By: #### B MPX, CDP ####[facility] [address] [place], [place] [address] [place])[phone] Director: Boo Vinson MD Urea nitrogen [Mass/Vol] 10 mg/dL Normal 6-20 [facility] Comment on above: Performed By: #### B MPX, CDP ####[facility] [address] [place], [place] [address] [place])[phone] Director: Boo Vinson MD CBC with Diffon 11-20-2023 Abs. Basophil 0.14 k/uL Normal 0.00-0.20 [facility] Comment on above: Performed By: #### B MPX, CDP ####[facility] [address] [place], [place] [address] [place])[phone] Director: Boo Vinson MD Abs.Imm.Granulocyte 0.06 k/uL Normal 0.00-0.30 [facility] Comment on above: Performed By: #### B MPX, CDP ####[facility] [address] [place], [place] [address] [place])[phone] Director: Boo Vinson MD Abs.Neutrophil (Seg) 10.74 k/uL High 1.50-8.10 [facility] Comment on above: Performed By: #### B MPX, CDP ####[facility] [address] [place], [place] [address] [place])[phone] Director: Boo Vinson MD Basophils/100 WBC (Bld) 1 % Normal 0-2 [facility] Comment on above: Performed By: #### B MPX, CDP ####[facility] [address] [place], [place] [address] [place])[phone] Director: Boo Vinson MD Eosinophils (Bld) [#/Vol] 0.49 10*3/uL High 0.00-0.44 [facility] Comment on above: Performed By: #### B MPX, CDP ####[facility] [address] [place], [place] [id number])[phone] Director: Boo Vinson MD Eosinophils/100 WBC (Bld) 3 % Normal 1-4 [facility] Comment on above: Performed By: #### B MPX, CDP ####[facility] [address] [place], [place] [id number])[phone] Director: Boo Vinson MD Erythrocyte distribution width (RBC) [Ratio] 15.9 % High 11.8-14.4 [facility] Comment on above: Performed By: #### B MPX, CDP ####[address] [phone])[phone] Director: Boo Vinson MD Hematocrit (Bld) [Volume fraction] 34.7 % Low 40.7-50.3 [facility] Comment on above: Performed By: #### B MPX, CDP ####[address] [id number])[phone] Director: Boo Vinson MD Hemoglobin (Bld) [Mass/Vol] 10.5 g/dL Low 13.0-17.0 [facility] Comment on above: Performed By: #### B MPX, CDP ####[address] [phone])[phone] Director: Boo Vinson MD Immature granulocytes/100 WBC (Bld) 0 % Normal 0 [facility] Comment on above: Performed By: #### B MPX, CDP ####[facility] [address] [place] [address] [id number])[phone] Director: Boo Vinson MD Lymphocytes (Bld) [#/Vol] 3.05 10*3/uL Normal 1.10-3.70 [facility] Comment on above: Performed By: #### B MPX, CDP ####[address] [address] Lab Director: Boo Vinson MD Lymphocytes/100 WBC (Bld) 20 % Low 24-43 [facility] Comment on above: Performed By: #### B MPX, CDP ####[facility] [address] [place], [place] [phone])[phone] Director: Boo Vinson MD MCH (RBC) [Entitic mass] 28.8 pg Normal 25.2-33.5 [facility] Comment on above: Performed By: #### B MPX, CDP ####[facility] [address] [place], [place] [phone] Director: Boo Vinson MD MCHC (RBC) [Mass/Vol] 30.3 g/dL Normal 28.4-34.8 [facility] Comment on above: Performed By: #### B MPX, CDP ####[address] [phone])[phone] Director: Boo Vinson MD MCV (RBC) [Entitic vol] 95.3 fL Normal 82.6-102.9 [facility] Comment on above: Performed By: #### B MPX, CDP ####[address] [phone] Director: Boo Vinson MD Monocytes (Bld) [#/Vol] 1.17 10*3/uL Normal 0.10-1.20 [facility] Comment on above: Performed By: #### B MPX, CDP ####[facility] [address] [place], [place] [phone] Director: Boo Vinson MD Monocytes/100 WBC (Bld) 8 % Normal 3-12 [facility] Comment on above: Performed By: #### B MPX, CDP ####[facility] [address] [place], [place] [phone] Director: Boo Vinson MD Neutrophil (Seg) 68 % High 36-65 [facility] Comment on above: Performed By: #### B MPX, CDP ####[facility] [address] [place], [place] [address] [place])[phone] Director: Boo Vinson MD NRBC Automated 0.0 per 100 WBC Normal 0.0 [facility] Comment on above: Performed By: #### B MPX, CDP ####[facility] [address] [place], [place] [address] [place])[phone] Director: Boo Vinson MD Platelet mean volume (Bld) [Entitic vol] 9.3 fL Normal 8.1-13.5 [facility] Comment on above: Performed By: #### B MPX, CDP ####[facility] [address] [place], [place] [address])[phone] Director: Boo Vinson MD Platelets (Bld) [#/Vol] 551 10*3/uL High 138-453 [facility] Comment on above: Performed By: #### B MPX, CDP ####[facility] [address] [place], [place] [address] [place])[phone] Director: Boo Vinson MD RBC (Bld) [#/Vol] 3.64 10*6/uL Low 4.21-5.77 [facility] Comment on above: Performed By: #### B MPX, CDP ####[facility] [address] [place] [address] [place])[phone] Director: Boo Vinson MD RBC morphology finding Nom (Bld) ANISOCYTOSIS PRESENT Normal [facility] Comment on above: Performed By: #### B MPX, CDP ####[place] [address] [place], [place] [phone])[phone] Director: Boo Vinson MD WBC (Bld) [#/Vol] 15.7 10*3/uL High 3.5-11.3 [facility] Comment on above: Performed By: #### B MPX, CDP ####[facility] [address] [place], [place] [id number])[phone] Director: Boo Vinson MD Basic Metab w/rfx MGon 11-18 Anion gap [Moles/Vol] 14 mmol/L Normal 9-16 [facility] Comment on above: Performed By: #### C DP, BMPX, MG, HEPXA ####[facility] [address]jxx[address] [place], [place] [address])[phone] Director: Boo Vinson MD Calcium [Mass/Vol] 9.4 mg/dL Normal 8.6-10.4 [facility] Comment on above: Performed By: #### C DP, BMPX, MG, HEPXA ####[facility] [address] [place], [place] [address] [place])[phone] Director: Boo Vinson MD Chloride [Moles/Vol] 103 mmol/L Normal 98-107 [facility] Comment on above: Performed By: #### C DP, BMPX, MG, HEPXA ####[facility] [address] [place], [place] [address])[phone] Director: Boo Vinson MD CO2 [Moles/Vol] 26 mmol/L Normal 20-31 [facility] Comment on above: Performed By: #### C DP, BMPX, MG, HEPXA ####[facility] [address] [place], [place] [address])[phone] Director: Boo Vinson MD Creatinine [Mass/Vol] 0.7 mg/dL Normal 0.70-1.20 [facility] Comment on above: Performed By: #### C DP, BMPX, MG, HEPXA ####[facility] [address] [place], [place] [address])[phone] Director: Boo Vinson MD GFR/1.73 sq M.predicted among non-blacks MDRD (S/P/Bld) [Vol rate/Area] mL/min/{1.73_m2} Normal >60 [facility] Comment on above: Result Comment: Thes e results are not intended for use in patients <18 years of age.eGFR results are calculated without a race factor using the 2020 CKD-EPI equation.Careful clinical correlation is recommended, particularly when comparing to results calculated using previous equations.The CKD-EPI equation is less accurate in patients with extremes of muscle mass, extra-renal metabolism of creatine, excessive creatine ingestion, or following therapy that affects renal tubular secretion. Performed By: #### C DP, BMPX, MG, HEPXA ####[facility] [address]ymhl[address] [place], [place] [phone] Director: Boo Vinson MD Glucose [Mass/Vol] 84 mg/dL Normal 74-99 [facility] Comment on above: Performed By: #### C DP, BMPX, MG, HEPXA ####[facility] [address] [place] [address] [place])[phone] Director: Boo Vinson MD Potassium [Moles/Vol] 3.2 mmol/L Low 3.7-5.3 [facility] Comment on above: Performed By: #### C DP, BMPX, MG, HEPXA ####[facility] [address]mxm2639 [place], [place] [phone] Director: Boo Vinson MD Sodium [Moles/Vol] 143 mmol/L Normal 136-145 [facility] Comment on above: Performed By: #### C DP, BMPX, MG, HEPXA ####[facility] [address] [place], [place] [id number])[phone] Director: Boo Vinson MD Urea nitrogen [Mass/Vol] 6 mg/dL Normal 6-20 [facility] Comment on above: Performed By: #### C DP, BMPX, MG, HEPXA ####[facility] [address] [place], [place] [phone] Director: Boo Vinson MD CBC with Diffon 11-19-2023 Abs. Basophil 0.10 k/uL Normal 0.00-0.20 [facility] Comment on above: Performed By: #### C DP, BMPX, MG, HEPXA ####[facility] Fv[address]94[address] [place], [place] [phone] Director: Boo Vinson MD Abs.Imm.Granulocyte 0.08 k/uL Normal 0.00-0.30 [facility] Comment on above: Performed By: #### C DP, BMPX, MG, HEPXA ####[facility] Qzw[address]wfjmprbc8944 [place], [place] [id number])[phone] Director: Boo Vinson MD Abs.Neutrophil (Seg) 11.97 k/uL High 1.50-8.10 [facility] Comment on above: Performed By: #### C DP, BMPX, MG, HEPXA ####[facility] [address] [place], [place] [address] [place])[phone] Director: Boo Vinson MD Basophils/100 WBC (Bld) 1 % Normal 0-2 [facility] Comment on above: Performed By: #### C DP, BMPX, MG, HEPXA ####[facility] [address] [place], [place] [address] [place])[phone] Director: Boo Vinson MD Eosinophils (Bld) [#/Vol] 0.31 10*3/uL Normal 0.00-0.44 [facility] Comment on above: Performed By: #### C DP, BMPX, MG, HEPXA ####[facility] [address] [place], [place] [address] [place])[phone] Director: Boo Vinson MD Eosinophils/100 WBC (Bld) 2 % Normal 1-4 [facility] Comment on above: Performed By: #### C DP, BMPX, MG, HEPXA ####[facility] [address] [place], [place] [address] [place])[phone] Director: Boo Vinson MD Erythrocyte distribution width (RBC) [Ratio] 16.4 % High 11.8-14.4 [facility] Comment on above: Performed By: #### C DP, BMPX, MG, HEPXA ####[address] [address] [place])[phone] Director: Boo Vinson MD Hematocrit (Bld) [Volume fraction] 33.0 % Low 40.7-50.3 [facility] Comment on above: Performed By: #### C DP, BMPX, MG, HEPXA ####[facility] [address] [place] [address] [place])[phone] Director: Boo Vinson MD Hemoglobin (Bld) [Mass/Vol] 10.0 g/dL Low 13.0-17.0 [facility] Comment on above: Performed By: #### C DP, BMPX, MG, HEPXA ####[address] [address] [place])[phone] Director: Boo Vinson MD Immature granulocytes/100 WBC (Bld) 1 % High 0 [facility] Comment on above: Performed By: #### C DP, BMPX, MG, HEPXA ####[address] [address] [place])[phone] Director: Boo Vinson MD Lymphocytes (Bld) [#/Vol] 2.91 10*3/uL Normal 1.10-3.70 [facility] Comment on above: Performed By: #### C DP, BMPX, MG, HEPXA ####[facility] [address] [place], [place] [address] [place])[phone] Director: Boo Vinson MD Lymphocytes/100 WBC (Bld) 18 % Low 24-43 [facility] Comment on above: Performed By: #### C DP, BMPX, MG, HEPXA ####[facility] [address] [place] [address] [place])[phone] Director: Boo Vinson MD MCH (RBC) [Entitic mass] 29.4 pg Normal 25.2-33.5 [facility] Comment on above: Performed By: #### C DP, BMPX, MG, HEPXA ####[facility] [address] [place], [place] [id number])[phone] Director: Boo Vinson MD MCHC (RBC) [Mass/Vol] 30.3 g/dL Normal 28.4-34.8 [facility] Comment on above: Performed By: #### C DP, BMPX, MG, HEPXA ####[facility] [address] [place], [place] [id number])[phone] Director: Boo Vinson MD MCV (RBC) [Entitic vol] 97.1 fL Normal 82.6-102.9 [facility] Comment on above: Performed By: #### C DP, BMPX, MG, HEPXA ####[facility] [address] [place] [address] [phone])[phone] Director: Boo Vinson MD Monocytes (Bld) [#/Vol] 1.28 10*3/uL High 0.10-1.20 [facility] Comment on above: Performed By: #### C DP, BMPX, MG, HEPXA ####[address] [id number])[phone] Director: Boo Vinson MD Monocytes/100 WBC (Bld) 8 % Normal 3-12 [facility] Comment on above: Performed By: #### C DP, BMPX, MG, HEPXA ####[facility] [address] [place], [place] [phone] Director: Boo Vinson MD Neutrophil (Seg) 70 % High 36-65 [facility] Comment on above: Performed By: #### C DP, BMPX, MG, HEPXA ####[address] [address] [place])[phone] Director: Boo Vinson MD NRBC Automated 0.0 per 100 WBC Normal 0.0 [facility] Comment on above: Performed By: #### C DP, BMPX, MG, HEPXA ####[facility] [address] [place], [place] [id number])[phone] Director: Boo Vinson MD Platelet mean volume (Bld) [Entitic vol] 9.6 fL Normal 8.1-13.5 [facility] Comment on above: Performed By: #### C DP, BMPX, MG, HEPXA ####[place], [place] [address] [place])[phone] Director: Boo Vinson MD Platelets (Bld) [#/Vol] 574 10*3/uL High 138-453 [facility] Comment on above: Performed By: #### C DP, BMPX, MG, HEPXA ####[place], [place] [address] [place])[phone] Director: Boo Vinson MD RBC (Bld) [#/Vol] 3.40 10*6/uL Low 4.21-5.77 [facility] Comment on above: Performed By: #### C DP, BMPX, MG, HEPXA ####[place], [place] [address] [place])[phone] Director: Boo Vinson MD RBC morphology finding Nom (Bld) ANISOCYTOSIS PRESENT Normal [facility] Comment on above: Performed By: #### C DP, BMPX, MG, HEPXA ####[facility] [address] [place], [place] [address] [place])[phone] Director: Boo Vinson MD WBC (Bld) [#/Vol] 16.7 10*3/uL High 3.5-11.3 [facility] Comment on above: Performed By: #### C DP, BMPX, MG, HEPXA ####[address] [address] Lab Director: Boo Vinson MD Heparin Anti-Xaon 11-19-2023 Heparin Anti-Xa 1.81 IU/L Normal [facility] Comment on above: Performed By: #### C DP, BMPX, MG, HEPXA ####[address] [address] Lab Director: Boo Vinson MD Magnesiumon 11-19-2023 Magnesium [Mass/Vol] 2.1 mg/dL Normal 1.6-2.6 [facility] Comment on above: Performed By: #### C DP, BMPX, MG, HEPXA ####[address] [address] lab Director: Boo Vinson MD XR CHEST PORTABLEon 11-19-19 XR CHEST PORTABLE Normal [facility] Basic Metab w/rfx MGon 11-17 Anion gap [Moles/Vol] 14 mmol/L Normal 9-16 [facility] Comment on above: Performed By: #### M G, BMPX, HEPXA, CDP ####[facility] [address] [place] [address] Lab Director: Boo Vinson MD Calcium [Mass/Vol] 9.2 mg/dL Normal 8.6-10.4 [facility] Comment on above: Performed By: #### M G, BMPX, HEPXA, CDP ####[facility] [address] [place] [address] Lab Director: Boo Vinson MD Chloride [Moles/Vol] 104 mmol/L Normal 98-107 [facility] Comment on above: Performed By: #### M G, BMPX, HEPXA, CDP ####[facility] [address] [place] [address] Lab Director: Boo Vinson MD CO2 [Moles/Vol] 23 mmol/L Normal 20-31 [facility] Comment on above: Performed By: #### M G, BMPX, HEPXA, CDP ####[facility] [address] [place] [address] Lab Director: Boo Vinson MD Creatinine [Mass/Vol] 0.7 mg/dL Normal 0.70-1.20 [facility] Comment on above: Performed By: #### M G, BMPX, HEPXA, CDP ####[facility] [address] [place], [place] [id number])[phone] Director: Boo Vinson MD GFR/1.73 sq M.predicted among non-blacks MDRD (S/P/Bld) [Vol rate/Area] mL/min/{1.73_m2} Normal >60 [facility] Comment on above: Result Comment: Thes e results are not intended for use in patients <18 years of age.eGFR results are calculated without a race factor using the 2020 CKD-EPI equation.Careful clinical correlation is recommended, particularly when comparing to results calculated using previous equations.The CKD-EPI equation is less accurate in patients with extremes of muscle mass, extra-renal metabolism of creatine, excessive creatine ingestion, or following therapy that affects renal tubular secretion. Performed By: #### M G, BMPX, HEPXA, CDP ####[facility] [address]64 [place], [place] [id number])[phone] Director: Boo Vinson MD Glucose [Mass/Vol] 93 mg/dL Normal 74-99 [facility] Comment on above: Performed By: #### M G, BMPX, HEPXA, CDP ####[facility] [address] [place] [address] Lab Director: Boo Vinson MD Potassium [Moles/Vol] 3.3 mmol/L Low 3.7-5.3 [facility] Comment on above: Performed By: #### M G, BMPX, HEPXA, CDP ####[facility] Mbtldwnkggks4560 [place], [place] [phone])[phone] Director: Boo Vinson MD Sodium [Moles/Vol] 141 mmol/L Normal 136-145 [facility] Comment on above: Performed By: #### M G, BMPX, HEPXA, CDP ####[facility] [address] [place], [place] [id number])[phone] Director: Boo Vinson MD Urea nitrogen [Mass/Vol] 6 mg/dL Normal 6-20 [facility] Comment on above: Performed By: #### M G, BMPX, HEPXA, CDP ####[facility] [address] [place], [place] [address] [place])[phone] Director: Boo Vinson MD CBC with Diffon 11-18-2023 Abs. Basophil 0.14 k/uL Normal 0.00-0.20 [facility] Comment on above: Performed By: #### M G, BMPX, HEPXA, CDP ####[facility] Hxxvlljxtatz4852 [place], [place] [address] [place])[phone] Director: Boo Vinson MD Abs.Imm.Granulocyte 0.09 k/uL Normal 0.00-0.30 [facility] Comment on above: Performed By: #### M G, BMPX, HEPXA, CDP ####[facility] [address] [place], [place] [address] [place])[phone] Director: Boo Vinson MD Abs.Neutrophil (Seg) 7.88 k/uL Normal 1.50-8.10 [facility] Comment on above: Performed By: #### M G, BMPX, HEPXA, CDP ####[facility] [address] [place], [place] [address] [place])[phone] Director: Boo Vinson MD Basophils/100 WBC (Bld) 1 % Normal 0-2 [facility] Comment on above: Performed By: #### M G, BMPX, HEPXA, CDP ####[facility] [address]ob[address]rbwuqqj[address] [place], [place] [address] [place])[phone] Director: Boo Vinson MD Eosinophils (Bld) [#/Vol] 0.64 10*3/uL High 0.00-0.44 [facility] Comment on above: Performed By: #### M G, BMPX, HEPXA, CDP ####[facility] [address] [place] [address] [place])[phone] Director: Boo Vinson MD Eosinophils/100 WBC (Bld) 5 % High 1-4 [facility] Comment on above: Performed By: #### M G, BMPX, HEPXA, CDP ####[facility] [address] [place], [place] [address] [place])[phone] Director: Boo Vinson MD Erythrocyte distribution width (RBC) [Ratio] 16.3 % High 11.8-14.4 [facility] Comment on above: Performed By: #### M G, BMPX, HEPXA, CDP ####[facility] [address] [place], [place] [address] [place])[phone] Director: Boo Vinson MD Hematocrit (Bld) [Volume fraction] 33.1 % Low 40.7-50.3 [facility] Comment on above: Performed By: #### M G, BMPX, HEPXA, CDP ####[facility] [address] [place], [place] [address] [place])[phone] Director: Boo Vinson MD Hemoglobin (Bld) [Mass/Vol] 9.5 g/dL Low 13.0-17.0 [facility] Comment on above: Performed By: #### M G, BMPX, HEPXA, CDP ####[facility] [address]ys[address] [place], [place] [address] [place])[phone] Director: Boo Vinson MD Immature granulocytes/100 WBC (Bld) 1 % High 0 [facility] Comment on above: Performed By: #### M G, BMPX, HEPXA, CDP ####[facility] [id number])[phone] Director: Boo Vinson MD Lymphocytes (Bld) [#/Vol] 4.27 10*3/uL High 1.10-3.70 [facility] Comment on above: Performed By: #### M G, BMPX, HEPXA, CDP ####[address] [address] [place])[phone] Director: Boo Vinson MD Lymphocytes/100 WBC (Bld) 30 % Normal 24-43 [facility] Comment on above: Performed By: #### M G, BMPX, HEPXA, CDP ####[place], [place] [address] [place])[phone] Director: Boo Vinson MD MCH (RBC) [Entitic mass] 28.9 pg Normal 25.2-33.5 [facility] Comment on above: Performed By: #### Mitch G, BMPX, HEPXA, CDP ####[facility] [address] [place], [place] [address] [place])[phone] Director: Boo Vinson MD MCHC (RBC) [Mass/Vol] 28.7 g/dL Normal 28.4-34.8 [facility] Comment on above: Performed By: #### Mitch G, BMPX, HEPXA, CDP ####[place], [place] [address] [place])[phone] Director: Boo Vinson MD MCV (RBC) [Entitic vol] 100.6 fL Normal 82.6-102.9 [facility] Comment on above: Performed By: #### M G, BMPX, HEPXA, CDP ####[address] [place] [place], [place] [id number])[phone] Director: Boo Vinson MD Monocytes (Bld) [#/Vol] 1.31 10*3/uL High 0.10-1.20 [facility] Comment on above: Performed By: #### M G, BMPX, HEPXA, CDP ####[facility] [address] [place], [place] [id number])[phone] Director: Boo Vinson MD Monocytes/100 WBC (Bld) 9 % Normal 3-12 [facility] Comment on above: Performed By: #### M G, BMPX, HEPXA, CDP ####[facility] [address]fe[address]ob[address]63 [place] [address] Lab Director: Boo Vinson MD Neutrophil (Seg) 54 % Normal 36-65 [facility] Comment on above: Performed By: #### M G, BMPX, HEPXA, CDP ####[facility] [address] [place], [place] [id number])[phone] Director: Boo Vinson MD NRBC Automated 0.0 per 100 WBC Normal 0.0 [facility] Comment on above: Performed By: #### Mitch G, BMPX, HEPXA, CDP ####[facility] Cboqvzevnl[address]z6492 [place], [place] [id number])[phone] Director: Boo Vinson MD Platelet mean volume (Bld) [Entitic vol] 9.5 fL Normal 8.1-13.5 [facility] Comment on above: Performed By: #### Mitch G, BMPX, HEPXA, CDP ####[facility] [address] [place] [address] Lab Director: Boo Vinson MD Platelets (Bld) [#/Vol] 519 10*3/uL High 138-453 [facility] Comment on above: Performed By: #### M G, BMPX, HEPXA, CDP ####[facility] [address]xmm[address] [place] [address] Lab Director: Boo Vinson MD RBC (Bld) [#/Vol] 3.29 10*6/uL Low 4.21-5.77 [facility] Comment on above: Performed By: #### M G, BMPX, HEPXA, CDP ####[facility] Bq[address]vpxsp[address]67 [place] [address] Lab Director: Boo Vinson MD RBC morphology finding Nom (Bld) ANISOCYTOSIS PRESENT Normal [facility] Comment on above: Performed By: #### M G, BMPX, HEPXA, CDP ####[facility] [address] [place] [address] [id number])[phone] Director: Boo Vinson MD WBC (Bld) [#/Vol] 14.3 10*3/uL High 3.5-11.3 [facility] Comment on above: Performed By: #### M G, BMPX, HEPXA, CDP ####[facility] [address] [place] [address] [id number])[phone] Director: Boo Vinson MD Cult,Funguson 11-18-2023 Cult,Fungus Specimen Description .BRONCHIAL WASHINGS Direct Exam NO FUNGAL ELEMENTS SEEN Culture NO GROWTH 28 DAYS Report Status FINAL 11/18/2023 Normal [facility] Comment on above: Performed By: #### F C ####[address] [phone])[phone] Director: Boo Vinson MD Heparin Anti-Xaon 11-18-2023 Heparin Anti-Xa 0.73 IU/L Normal [facility] Comment on above: Performed By: #### M G, BMPX, HEPXA, CDP ####[facility] [address] [place] [address] [id number])[phone] Director: Boo iVnson MD Magnesiumon 11-18-2023 Magnesium [Mass/Vol] 2.4 mg/dL Normal 1.6-2.6 [facility] Comment on above: Performed By: #### M G, BMPX, HEPXA, CDP ####[facility] Lxgrioxxiury1372 [place] [address] Lab Director: Boo Vinson MD Basic Metab w/rfx MGon 11-16 Anion gap [Moles/Vol] 13 mmol/L Normal 9-16 [facility] Comment on above: Performed By: #### Mitch Hernandez, BMPX ####[facility] [address]dp[address]1272 [place], [place] [id number])[phone] Director: Boo Vinson MD Anion gap [Moles/Vol] 14 mmol/L Normal 9-16 [facility] Comment on above: Performed By: #### B MPX ####[facility] Un[address]qlmx[address]u59[address] [place], [place] [id number])[phone] Director: Boo Vinson MD Calcium [Mass/Vol] 9.3 mg/dL Normal 8.6-10.4 [facility] Comment on above: Performed By: #### Mitch Hernandez, BMPX ####[facility] Dsizzozftsdx4475 [place], [place] [phone])[phone] Director: Boo Vinson MD Calcium [Mass/Vol] 9.6 mg/dL Normal 8.6-10.4 [facility] Comment on above: Performed By: #### B MPX ####[facility] Sbqjranwfzlv1762 [place], [place] [phone])[phone] Director: Boo Vinson MD Chloride [Moles/Vol] 104 mmol/L Normal 98-107 [facility] Comment on above: Performed By: #### Mitch Hernandez BMPX ####[facility] Ahl[address]zsb[address]2718 [place], [place] [phone])[phone] Director: Boo Vinson MD Chloride [Moles/Vol] 104 mmol/L Normal 98-107 [facility] Comment on above: Performed By: #### B MPX ####[facility] [address]ub[address]vo3708 [place], [place] [phone])[phone] Director: Boo Vinson MD CO2 [Moles/Vol] 25 mmol/L Normal 20-31 [facility] Comment on above: Performed By: #### M G, BMPX ####[facility] [address]asexs3151 [place] [address] Lab Director: Boo Vinson MD CO2 [Moles/Vol] 23 mmol/L Normal 20-31 [facility] Comment on above: Performed By: #### B MPX ####[facility] Cvytmgxqyouh77[address] [place], [place] [phone] Director: Boo Vinson MD Creatinine [Mass/Vol] 0.7 mg/dL Normal 0.70-1.20 [facility] Comment on above: Performed By: #### M G, BMPX ####[facility] [address] [place] [address] [place])[phone] Director: Boo Vinson MD Creatinine [Mass/Vol] 0.7 mg/dL Normal 0.70-1.20 [facility] Comment on above: Performed By: #### B MPX ####[address] [address] [place])[phone] Director: Boo Vinson MD GFR/1.73 sq M.predicted among non-blacks MDRD (S/P/Bld) [Vol rate/Area] mL/min/{1.73_m2} Normal >60 [facility] Comment on above: Result Comment: Thes e results are not intended for use in patients <18 years of age.eGFR results are calculated without a race factor using the 2020 CKD-EPI equation.Careful clinical correlation is recommended, particularly when comparing to results calculated using previous equations.The CKD-EPI equation is less accurate in patients with extremes of muscle mass, extra-renal metabolism of creatine, excessive creatine ingestion, or following therapy that affects renal tubular secretion. Performed By: #### M G, BMPX ####[address] [id number])[phone] Director: Boo Vinson MD GFR/1.73 sq M.predicted among non-blacks MDRD (S/P/Bld) [Vol rate/Area] mL/min/{1.73_m2} Normal >60 [facility] Comment on above: Result Comment: Thes e results are not intended for use in patients <18 years of age.eGFR results are calculated without a race factor using the 2020 CKD-EPI equation.Careful clinical correlation is recommended, particularly when comparing to results calculated using previous equations.The CKD-EPI equation is less accurate in patients with extremes of muscle mass, extra-renal metabolism of creatine, excessive creatine ingestion, or following therapy that affects renal tubular secretion. Performed By: #### B MPX ####[facility] [address] [place] [address] Lab Director: Boo Vinson MD Glucose [Mass/Vol] 104 mg/dL [facility]99 [facility] Comment on above: Performed By: #### M David, BMPX ####[facility] [address] [place] [address] Lab Director: Boo Vinson MD Glucose [Mass/Vol] 103 mg/dL High 74-99 [facility] Comment on above: Performed By: #### B MPX ####[facility] [address] [place] [address] Lab Director: Boo Vinson MD Potassium [Moles/Vol] 3.3 mmol/L Low 3.7-5.3 [facility] Comment on above: Performed By: #### M David, BMPX ####[facility] C[address]wcuv3755 [place] [address] Lab Director: Boo Vinson MD Potassium [Moles/Vol] 3.9 mmol/L Normal 3.7-5.3 [facility] Comment on above: Performed By: #### B MPX ####[facility] [address] [place] [address] Lab Director: Boo Vinson MD Sodium [Moles/Vol] 142 mmol/L Normal 136-145 [facility] Comment on above: Performed By: #### M David, BMPX ####[facility] [address] [place], [place] [address] [place])[phone] Director: Boo Vinson MD Sodium [Moles/Vol] 141 mmol/L Normal 136-145 [facility] Comment on above: Performed By: #### B MPX ####[address] [phone])[phone] Director: Boo Vinson MD Urea nitrogen [Mass/Vol] 6 mg/dL Normal 6-20 [facility] Comment on above: Performed By: #### M G, BMPX ####[address] [address] [place])[phone] Director: Boo Vinson MD Urea nitrogen [Mass/Vol] 6 mg/dL Normal 6-20 [facility] Comment on above: Performed By: #### B MPX ####[address] [address] [place])[phone] Director: Boo Vinson MD CBC with Diffon 11-17-2023 Abs. Basophil 0.16 k/uL Normal 0.00-0.20 [facility] Comment on above: Performed By: #### C DP ####[address] [address] [place])[phone] Director: Boo Vinson MD Abs.Imm.Granulocyte 0.00 k/uL Normal 0.00-0.30 [facility] Comment on above: Performed By: #### C DP ####[address] [address] [place])[phone] Director: Boo Vinson MD Abs.Neutrophil (Seg) 9.76 k/uL High 1.50-8.10 [facility] Comment on above: Performed By: #### C DP ####[address] [address] [place])[phone] Director: Boo Vinson MD Basophils/100 WBC (Bld) 1 % Normal 0-2 [facility] Comment on above: Performed By: #### C DP ####[address] [phone])[phone] Director: Boo Vinson MD Eosinophils (Bld) [#/Vol] 0.48 10*3/uL High 0.00-0.44 [facility] Comment on above: Performed By: #### C DP ####[address] [id number])[phone] Director: Boo Vinson MD Eosinophils/100 WBC (Bld) 3 % Normal 1-4 [facility] Comment on above: Performed By: #### C DP ####[address] [address] [place])[phone] Director: Boo Vinson MD Erythrocyte distribution width (RBC) [Ratio] 16.4 % High 11.8-14.4 [facility] Comment on above: Performed By: #### C DP ####[address] [address] [place])[phone] Director: Boo Vinson MD Hematocrit (Bld) [Volume fraction] 31.9 % Low 40.7-50.3 [facility] Comment on above: Performed By: #### C DP ####[address] [address] [place])[phone] Director: Boo Vinson MD Hemoglobin (Bld) [Mass/Vol] 9.5 g/dL Low 13.0-17.0 [facility] Comment on above: Performed By: #### C DP ####[address] [address] [place])[phone] Director: Boo Vinson MD Immature granulocytes/100 WBC (Bld) 0 % Normal 0 [facility] Comment on above: Performed By: #### C DP ####[address] [address] [place])[phone] Director: Boo Vinson MD Lymphocytes (Bld) [#/Vol] 4.00 10*3/uL High 1.10-3.70 [facility] Comment on above: Performed By: #### C DP ####[address] [phone])[phone] Director: Boo Vinson MD Lymphocytes/100 WBC (Bld) 25 % Normal 24-43 [facility] Comment on above: Performed By: #### C DP ####[address] [phone])[phone] Director: Boo Vinson MD MCH (RBC) [Entitic mass] 29.1 pg Normal 25.2-33.5 [facility] Comment on above: Performed By: #### C DP ####[place], [place] [address])[phone] Director: Boo Vinson MD MCHC (RBC) [Mass/Vol] 29.8 g/dL Normal 28.4-34.8 [facility] Comment on above: Performed By: #### C DP ####[address] [phone])[phone] Director: Boo Vinson MD MCV (RBC) [Entitic vol] 97.9 fL Normal 82.6-102.9 [facility] Comment on above: Performed By: #### C DP ####[address] [id number])[phone] Director: Boo Vinson MD Monocytes (Bld) [#/Vol] 1.60 10*3/uL High 0.10-1.20 [facility] Comment on above: Performed By: #### C DP ####[address] [id number])[phone] Director: Boo Vinson MD Monocytes/100 WBC (Bld) 10 % Normal 3-12 [facility] Comment on above: Performed By: #### C DP ####[address] [address] Lab Director: Boo Vinson MD Morphology Dante (Bld) [Interp] ANISOCYTOSIS PRESENT Normal [facility] Comment on above: Performed By: #### C DP ####[address] [address] Lab Director: Boo Vinson MD Neutrophil (Seg) 61 % Normal 36-65 [facility] Comment on above: Performed By: #### C DP ####[address] [id number])[phone] Director: Boo Vinson MD NRBC Automated 0.0 per 100 WBC Normal 0.0 [facility] Comment on above: Performed By: #### C DP ####[address] [id number])[phone] Director: Boo Vinson MD Platelet mean volume (Bld) [Entitic vol] 9.8 fL Normal 8.1-13.5 [facility] Comment on above: Performed By: #### C DP ####[address] [address] Lab Director: Boo Vinson MD Platelets (Bld) [#/Vol] 540 10*3/uL High 138-453 [facility] Comment on above: Performed By: #### C DP ####[address] [address] Lab Director: Boo Vinson MD RBC (Bld) [#/Vol] 3.26 10*6/uL Low 4.21-5.77 [facility] Comment on above: Performed By: #### C DP ####[address] [address] Lab Director: Boo Vinson MD WBC (Bld) [#/Vol] 16.0 10*3/uL High 3.5-11.3 [facility] Comment on above: Performed By: #### C DP ####[address] [phone] Director: Boo Vinson MD FL MODIFIED BARIUM SWALLOW W VIDEOon 11-17-2023 FL MODIFIED BARIUM SWALLOW W VIDEO Normal [facility] Heparin Anti-Xaon 11-17-2023 Heparin Anti-Xa 0.53 IU/L Normal [facility] Comment on above: Performed By: #### H EPXA ####[address] [phone] Director: Boo Vinson MD Magnesiumon 11-17-2023 Magnesium [Mass/Vol] 2.1 mg/dL Normal 1.6-2.6 [facility] Comment on above: Performed By: #### M G, BMPX ####[address] [phone] Director: Boo Vinson MD Urinalysis w/ Microon 2023 Bacteria None Normal NONE [facility] Comment on above: Performed By: #### U AMIC ####[address] [phone] Director: Boo Vinson MD Bilirubin, SemiQt,Ur Negative Normal NEG [facility] Comment on above: Performed By: #### U AMIC ####[address] [phone] Director: Boo Vinson MD Blood, Urine Negative Normal NEG [facility] Comment on above: Performed By: #### U AMIC ####[address] [phone] Director: Boo Vinson MD Casts None Normal 0-8 [facility] Comment on above: Result Comment: Refe rence range defined for non-centrifuged specimen. Performed By: #### U AMIC ####[address] [phone] Director: Boo Vinson MD Clarity (U) Clear Normal CLEAR [facility] Comment on above: Performed By: #### U AMIC ####[address] [phone] Director: Boo Vinson MD Color (U) Yellow Normal YEL [facility] Comment on above: Performed By: #### U AMIC ####[address] [phone] Director: Boo Vinson MD Epithelial cells LM Ql (Urine sed) None Normal 0-5 [facility] Comment on above: Performed By: #### U AMIC ####[address] [address] Lab Director: Boo Vinson MD Glucose Ql (U) Negative Normal NEG [facility] Comment on above: Performed By: #### U AMIC ####[address] [phone] Director: Boo Vinson MD Ketones Ql (U) Negative Normal NEG [facility] Comment on above: Performed By: #### U AMIC ####[address] [phone] Director: Boo Vinson MD Leukocyte esterase Test strip Ql (U) Negative Normal NEG [facility] Comment on above: Performed By: #### U AMIC ####[address] [address] Lab Director: Boo Vinson MD Nitrite,Ur Negative Normal NEG [facility] Comment on above: Performed By: #### U AMIC ####[facility] Ufs[address]uyx[address]9457 [place], [place] [phone] Director: Boo Vinson MD PH,Ur 8.0 Normal 5.0-8.0 [facility] Comment on above: Performed By: #### U AMIC ####[facility] Wbezorqjbqqc5757 [place], [place] [phone] Director: Boo Vinson MD Protein Ql (U) Negative Normal NEG [facility] Comment on above: Performed By: #### U AMIC ####[address] [phone] Director: Boo Vinson MD Spec. [place],Ur 1.006 Normal 1.005-1.030 [facility] Comment on above: Performed By: #### U AMIC ####[address] [phone] Director: Boo Vinson MD Urine RBC's 2 TO 5 Normal 0-4 [facility] Comment on above: Result Comment: Refe rence range defined for non-centrifuged specimen. Performed By: #### U AMIC ####[facility] [place] [address] [phone] Director: Boo Vinson MD Urine WBC's None Normal 0-5 [facility] Comment on above: Performed By: #### U AMIC ####[facility] Fvwbdemzkrci6548 [place], [place] [phone] Director: Boo Vinson MD Urobilinogen,Ur Normal Normal 0.0-1.0 [facility] Comment on above: Performed By: #### U AMIC ####[facility] Eutifmfvtchs[address]76 [place], [place] [phone] Director: Boo Vinson MD XR CHEST PORTABLEon 11-17-19 24 XR CHEST PORTABLE Normal [facility] Basic Metab w/rfx MGon 11-15 Anion gap [Moles/Vol] 13 mmol/L Normal 9-16 [facility] Comment on above: Performed By: #### Mitch Hernandez BMPX ####[facility] Tutcuhjgtgqr1581 [place], [place] [phone] Director: Boo Vinson MD Anion gap [Moles/Vol] 10 mmol/L Normal 9-16 [facility] Comment on above: Performed By: #### B MPX ####[facility] [address]ub[address]cp[address] [place], [place] [phone] Director: Boo Vinson MD Calcium [Mass/Vol] 8.8 mg/dL Normal 8.6-10.4 [facility] Comment on above: Performed By: #### Mitch Hernandez BMPX ####[facility] Yhiswrxzstww6424 [place], [place] [phone] Director: Boo Vinson MD Calcium [Mass/Vol] 9.2 mg/dL Normal 8.6-10.4 [facility] Comment on above: Performed By: #### B MPX ####[facility] Bbvwxxpnzdpm7423 [place], [place] [phone] Director: Boo Vinson MD Chloride [Moles/Vol] 103 mmol/L Normal 98-107 [facility] Comment on above: Performed By: #### Mitch Hernandez BMPX ####[facility] Wuxhkacmpzvu8932 [place], [place] [phone] Director: Boo Vinson MD Chloride [Moles/Vol] 105 mmol/L Normal 98-107 [facility] Comment on above: Performed By: #### B MPX ####[facility] Dzckfjgmmltz0192 [place], [place] [phone] Director: Boo Vinson MD CO2 [Moles/Vol] 26 mmol/L Normal 20-31 [facility] Comment on above: Performed By: #### M G, BMPX ####[facility] Zfwzpcukwdqe9905 [place] [address] Lab Director: Boo Vinson MD CO2 [Moles/Vol] 27 mmol/L Normal 20-31 [facility] Comment on above: Performed By: #### B MPX ####[facility] Pocifchvaxvn5149 [place] [address] Lab Director: Boo Vinson MD Creatinine [Mass/Vol] 0.7 mg/dL Normal 0.70-1.20 [facility] Comment on above: Performed By: #### M G, BMPX ####[facility] [address] [place] [address] [phone] Director: Boo Vinson MD Creatinine [Mass/Vol] 0.7 mg/dL Normal 0.70-1.20 [facility] Comment on above: Performed By: #### B MPX ####[address] [address] Lab Director: Boo Vinson MD GFR/1.73 sq M.predicted among non-blacks MDRD (S/P/Bld) [Vol rate/Area] mL/min/{1.73_m2} Normal >60 [facility] Comment on above: Result Comment: Thes e results are not intended for use in patients <18 years of age.eGFR results are calculated without a race factor using the 2020 CKD-EPI equation.Careful clinical correlation is recommended, particularly when comparing to results calculated using previous equations.The CKD-EPI equation is less accurate in patients with extremes of muscle mass, extra-renal metabolism of creatine, excessive creatine ingestion, or following therapy that affects renal tubular secretion. Performed By: #### M G, BMPX ####[facility] [address] [place] [address] Lab Director: Boo Vinson MD GFR/1.73 sq M.predicted among non-blacks MDRD (S/P/Bld) [Vol rate/Area] mL/min/{1.73_m2} Normal >60 [facility] Comment on above: Result Comment: Thes e results are not intended for use in patients <18 years of age.eGFR results are calculated without a race factor using the 2020 CKD-EPI equation.Careful clinical correlation is recommended, particularly when comparing to results calculated using previous equations.The CKD-EPI equation is less accurate in patients with extremes of muscle mass, extra-renal metabolism of creatine, excessive creatine ingestion, or following therapy that affects renal tubular secretion. Performed By: #### B MPX ####[facility] [address] [place] [address] [phone] Director: Boo Vinson MD Glucose [Mass/Vol] 110 mg/dL High [address] [place] [address] Comment on above: Performed By: #### M David BMPX ####[facility] [address] [place] [address]([facility])[phone] Director: Boo Vinson MD Glucose [Mass/Vol] 114 mg/dL High [address] [place] [address] Comment on above: Performed By: #### B MPX ####[facility] [address] [place] [address] Lab Director: Boo Vinson MD Potassium [Moles/Vol] 3.3 mmol/L Low 3.7-5.3 [facility] Comment on above: Performed By: #### Mitch Hernandez BMPX ####[facility] [address] [place] [address] Lab Director: Boo Vinson MD Potassium [Moles/Vol] 4.0 mmol/L Normal 3.7-5.3 [facility] Comment on above: Performed By: #### B MPX ####[facility] [address] [place] [address] Lab Director: Boo Vinson MD Sodium [Moles/Vol] 142 mmol/L Normal 136-145 [facility] Comment on above: Performed By: #### M G, BMPX ####[facility] Mnbfmhedzptp9437 [place] [address] Lab Director: Boo Vinson MD Sodium [Moles/Vol] 142 mmol/L Normal 136-145 [facility] Comment on above: Performed By: #### B MPX ####[facility] Cgqpqauhdnog0315 [place] [address] Lab Director: Boo Vinson MD Urea nitrogen [Mass/Vol] 7 mg/dL Normal 6-20 [facility] Comment on above: Performed By: #### M David, BMPX ####[facility] Xtdxtjtczeas8832 [place] [address] Lab Director: Boo Vinson MD Urea nitrogen [Mass/Vol] 8 mg/dL Normal 6-20 [facility] Comment on above: Performed By: #### B MPX ####[facility] [address] [place] [address]([facility])[phone] Director: Boo Vinson MD CBC with Diffon 11-16-2023 Abs. Basophil 0.00 k/uL Normal 0.0-0.2 [facility] Comment on above: Performed By: #### C DP, HEPXA ####[facility] Ipdyznxrxllo7218 [place] [address]([facility])[phone] Director: Boo Vinson MD Abs.Imm.Granulocyte 0.00 k/uL Normal 0.00-0.30 [facility] Comment on above: Performed By: #### C DP, HEPXA ####[facility] Nysmoxrpxcmy8024 [place] [address] Lab Director: Boo Vinson MD Abs.Neutrophil (Seg) 8.63 k/uL High 1.8-7.7 [facility] Comment on above: Performed By: #### C DP, HEPXA ####[facility] Dqigwore[address]amp9890 [place] [address] Lab Director: Boo Vinson MD Basophils/100 WBC (Bld) 0 % Normal 0-2 [facility] Comment on above: Performed By: #### C DP, HEPXA ####[address] [phone] Director: Boo Vinson MD Eosinophils (Bld) [#/Vol] 0.54 10*3/uL High 0.0-0.4 [facility] Comment on above: Performed By: #### C DP, HEPXA ####[address] [phone] Director: Boo Vinson MD Eosinophils/100 WBC (Bld) 4 % Normal 1-4 [facility] Comment on above: Performed By: #### C DP, HEPXA ####[address] [address])[phone] Director: Boo Vinson MD Erythrocyte distribution width (RBC) [Ratio] 15.9 % High 11.8-14.4 [facility] Comment on above: Performed By: #### C DP, HEPXA ####[address] [address])[phone] Director: Boo Vinson MD Hematocrit (Bld) [Volume fraction] 28.4 % Low 40.7-50.3 [facility] Comment on above: Performed By: #### C DP, HEPXA ####[facility] [address] [place] [address])[phone] Director: Boo Vinson MD Hemoglobin (Bld) [Mass/Vol] 8.4 g/dL Low 13.0-17.0 [facility] Comment on above: Performed By: #### C DP, HEPXA ####[facility] [address] [place] [address] [phone] Director: Boo Vinson MD Immature granulocytes/100 WBC (Bld) 0 % Normal 0 [facility] Comment on above: Performed By: #### C DP, HEPXA ####[place], [place] [address])[phone] Director: Boo Vinson MD Lymphocytes (Bld) [#/Vol] 3.65 10*3/uL Normal 1.0-4.8 [facility] Comment on above: Performed By: #### C DP, HEPXA ####[place], [place] [address])[phone] Director: Boo Vinson MD Lymphocytes/100 WBC (Bld) 27 % Normal 24-44 [facility] Comment on above: Performed By: #### C DP, HEPXA ####[place], [place] [address])[phone] Director: Boo Vinson MD MCH (RBC) [Entitic mass] 29.1 pg Normal 25.2-33.5 [facility] Comment on above: Performed By: #### C DP, HEPXA ####[place], [place] [address])[phone] Director: Boo Vinson MD MCHC (RBC) [Mass/Vol] 29.6 g/dL Normal 28.4-34.8 [facility] Comment on above: Performed By: #### C DP, HEPXA ####[place], [place] [address])[phone] Director: Boo Vinson MD MCV (RBC) [Entitic vol] 98.3 fL Normal 82.6-102.9 [facility] Comment on above: Performed By: #### C DP, HEPXA ####[place], [place] [address])[phone] Director: Boo Vinson MD Monocytes (Bld) [#/Vol] 0.68 10*3/uL Normal 0.1-0.8 [facility] Comment on above: Performed By: #### C DP, HEPXA ####[address] [address] Lab Director: Boo Vinson MD Monocytes/100 WBC (Bld) 5 % Normal 1-7 [facility] Comment on above: Performed By: #### C DP, HEPXA ####[address] [address] Lab Director: Boo Vinson MD Morphology Dante (Bld) [Interp] ANISOCYTOSIS PRESENT Normal [facility] Comment on above: Performed By: #### C DP, HEPXA ####[address] [address] Lab Director: Boo Vinson MD Neutrophil (Seg) 64 % Normal 36-66 [facility] Comment on above: Performed By: #### C DP, HEPXA ####[address] [address] Lab Director: Boo Vinson MD NRBC Automated 0.0 per 100 WBC Normal 0.0 [facility] Comment on above: Performed By: #### C DP, HEPXA ####[address] [address] Lab Director: Boo Vinson MD Platelet mean volume (Bld) [Entitic vol] 10.0 fL Normal 8.1-13.5 [facility] Comment on above: Performed By: #### C DP, HEPXA ####[address] [address] Lab Director: Boo Vinson MD Platelets (Bld) [#/Vol] 436 10*3/uL Normal 138-453 [facility] Comment on above: Performed By: #### C DP, HEPXA ####[address] [phone] Lab Director: Boo Vinson MD RBC (Bld) [#/Vol] 2.89 10*6/uL Low 4.21-5.77 [facility] Comment on above: Performed By: #### C DP, HEPXA ####[facility] Ocwkvsznkexq5074 [place] [address] Lab Director: Boo Vinson MD WBC (Bld) [#/Vol] 13.5 10*3/uL High 3.5-11.3 [facility] Comment on above: Performed By: #### C DP, HEPXA ####[facility] Jciocwbmxzfp3501 [place] [address] lab Director: Boo Vinson MD Cult,Bloodon 11-16-2023 Cult,Blood Specimen Description .BLOOD Special Requests L FOREARM 5 ML Culture NO GROWTH 5 DAYS Report Status FINAL 11/16/2023 Normal [facility] Comment on above: Performed By: #### B C ####[address] [address] lab Director: Boo Vinson MD Cult,Blood Specimen Description .BLOOD Special Requests R HAND 4 ML Culture NO GROWTH 5 DAYS Report Status FINAL 11/16/2023 Normal [facility] Comment on above: Performed By: #### B C ####[address] [address] Lab Director: Boo Vinson MD Glucose,Whole Bloodon 2023 Glucose [Mass/Vol] 144 mg/dL High 75-110 [facility] Heparin Anti-Xaon 11-16-2023 Heparin Anti-Xa 0.53 IU/L Normal [facility] Comment on above: Performed By: #### C DP, HEPXA ####[facility] Ykfsahgycvuw8994 [place] [address] Lab Director: Boo Vinson MD Magnesiumon 11-16-2023 Magnesium [Mass/Vol] 2.1 mg/dL Normal 1.6-2.6 [facility] Comment on above: Performed By: #### M G, BMPX ####[facility] Mbbe[address]jmgzkof8089 [place], [place] 3479408 Lab Director: Boo iVnson MD Arterial Bld Gas,POCon 11-14 Korey Test Positive Normal [facility] FIO2 40.0 Normal [facility] HCO3 (Bld) [Moles/Vol] 27.1 mmol/L Normal 21.0-28.0 [facility] O2 Device Adult Ventilator Normal [facility] Oxygen saturation in Blood 95.0 % Normal 94.0-98.0 [facility] pCO2, Arterial 38.1 mm Hg Normal 35.0-48.0 [facility] pH, Arterial 7.460 High 7.350-7.450 [facility] pO2, Arterial 71.5 mm Hg Low 83.0-108.0 [facility] Positive Base Excess (calc) 3.1 mmol/L High 0.0-3.0 [facility] Site Drawn Right Radial Artery Normal [facility] Basic Metab w/rfx MGon 11-14 Anion gap [Moles/Vol] 12 mmol/L Normal 9-16 [facility] Comment on above: Performed By: #### B MPX ####[facility] I[address]ifjpclspg[address]842 [place] [address] Lab Director: Boo Vinson MD Anion gap [Moles/Vol] 12 mmol/L Normal 9-16 [facility] Comment on above: Performed By: #### B MPX ####[facility] Tzugyooifdvh4817 [place], [place] [id number] lab Director: Boo Vinson MD Calcium [Mass/Vol] 9.1 mg/dL Normal 8.6-10.4 [facility] Comment on above: Performed By: #### B MPX ####[facility] Cuyznleslibw3761 [place] [address] Lab Director: Boo Vinson MD Calcium [Mass/Vol] 9.3 mg/dL Normal 8.6-10.4 [facility] Comment on above: Performed By: #### B MPX ####[facility] Wwwipbglriro1846 [place], [place] [phone] Director: Boo Vinson MD Chloride [Moles/Vol] 104 mmol/L Normal 98-107 [facility] Comment on above: Performed By: #### B MPX ####[facility] Bddbder[address]pego2159 [place], [place] [phone] Director: Boo Vinson MD Chloride [Moles/Vol] 103 mmol/L Normal 98-107 [facility] Comment on above: Performed By: #### B MPX ####[facility] Sulj[address]rzuhjd[address] [place], [place] [phone] Director: Boo Vinson MD CO2 [Moles/Vol] 24 mmol/L Normal 20-31 [facility] Comment on above: Performed By: #### B MPX ####[facility] Poxciufipsoh[address]147 [place], [place] [phone] Director: Boo Vinson MD CO2 [Moles/Vol] 27 mmol/L Normal 20-31 [facility] Comment on above: Performed By: #### B MPX ####[facility] Ztwqbgrhcchg2943 [place], [place] [phone] Director: Boo Vinson MD Creatinine [Mass/Vol] 0.7 mg/dL Normal 0.70-1.20 [facility] Comment on above: Performed By: #### B MPX ####[facility] Sywvztccfmsx4167 [place], [place] [phone] Director: Boo Vinson MD Creatinine [Mass/Vol] 0.7 mg/dL Normal 0.70-1.20 [facility] Comment on above: Performed By: #### B MPX ####[facility] [address] [place] [address] [phone] Lab Director: Boo Vinson MD GFR/1.73 sq M.predicted among non-blacks MDRD (S/P/Bld) [Vol rate/Area] mL/min/{1.73_m2} Normal >60 [facility] Comment on above: Result Comment: Thes e results are not intended for use in patients <18 years of age.eGFR results are calculated without a race factor using the 2021 CKD-EPI equation.Careful clinical correlation is recommended, particularly when comparing to results calculated using previous equations.The CKD-EPI equation is less accurate in patients with extremes of muscle mass, extra-renal metabolism of creatine, excessive creatine ingestion, or following therapy that affects renal tubular secretion. Performed By: #### B MPX ####[employer] [place] [address] Lab Director: Boo Vinson MD GFR/1.73 sq M.predicted among non-blacks MDRD (S/P/Bld) [Vol rate/Area] mL/min/{1.73_m2} Normal >60 [facility] Comment on above: Result Comment: Thes e results are not intended for use in patients <18 years of age.eGFR results are calculated without a race factor using the 2021 CKD-EPI equation.Careful clinical correlation is recommended, particularly when comparing to results calculated using previous equations.The CKD-EPI equation is less accurate in patients with extremes of muscle mass, extra-renal metabolism of creatine, excessive creatine ingestion, or following therapy that affects renal tubular secretion. Performed By: #### B MPX ####[facility] [address] [place], [place] [phone] Lab Director: Boo Vinson MD Glucose [Mass/Vol] 105 mg/dL High 74-99 [facility] Comment on above: Performed By: #### B MPX ####[employer] Tuifaqhpxslt7612 [place], [place] 0431708 Lab Director: Boo Vinson MD Glucose [Mass/Vol] 127 mg/dL High 74-99 [facility] Comment on above: Performed By: #### B MPX ####[facility] Uooujnrsernd7931 [place] [address] Lab Director: Boo Vinson MD Potassium [Moles/Vol] 3.6 mmol/L Low 3.7-5.3 [facility] Comment on above: Performed By: #### B MPX ####[facility] [address] [place] [address] Lab Director: Boo Vinson MD Potassium [Moles/Vol] 3.7 mmol/L Normal 3.7-5.3 [facility] Comment on above: Performed By: #### B MPX ####[address] [address] Lab Director: Boo Vinson MD Sodium [Moles/Vol] 140 mmol/L Normal 136-145 [facility] Comment on above: Performed By: #### B MPX ####[address] [phone] Director: Boo Vinson MD Sodium [Moles/Vol] 142 mmol/L Normal 136-145 [facility] Comment on above: Performed By: #### B MPX ####[facility] [address] [place] [address] Lab Director: Boo Vinson MD Urea nitrogen [Mass/Vol] 7 mg/dL Normal 6-20 [facility] Comment on above: Performed By: #### B MPX ####[facility] [address] [place], [place] [phone] Director: Boo Vinson MD Urea nitrogen [Mass/Vol] 7 mg/dL Normal 6-20 [facility] Comment on above: Performed By: #### B MPX ####[place] [address] [place], [place] [address])[phone] Director: Boo Vinson MD CBC with Diffon 11-15-2023 Abs. Basophil 0.06 k/uL Normal 0.00-0.20 [facility] Comment on above: Performed By: #### H EPXA, CDP, OSMO ####[facility] Ublwnntpwngk6096 [place], [place] [address])[phone] Director: Boo Vinson MD Abs.Imm.Granulocyte 0.05 k/uL Normal 0.00-0.30 [facility] Comment on above: Performed By: #### H EPXA, CDP, OSMO ####[address] [address])[phone] Director: Boo Vinson MD Abs.Neutrophil (Seg) 5.73 k/uL Normal 1.50-8.10 [facility] Comment on above: Performed By: #### H EPXA, CDP, OSMO ####[facility] [address] [place] [address] 35571[facility] [place])[phone] Director: Boo Vinson MD Basophils/100 WBC (Bld) 1 % Normal 0-2 [facility] Comment on above: Performed By: #### H EPXA, CDP, OSMO ####[facility] [address] [place] [address] 77244[facility] [place])[phone] Director: Boo Vinson MD Eosinophils (Bld) [#/Vol] 0.73 10*3/uL High 0.00-0.44 [facility] Comment on above: Performed By: #### H EPXA, CDP, OSMO ####[facility] [address] [place] [address] 61180[facility] [place])[phone] Director: Boo Vinson MD Eosinophils/100 WBC (Bld) 7 % High 1-4 [facility] Comment on above: Performed By: #### H EPXA, CDP, OSMO ####[address] [id number])[phone] Director: Boo Vinson MD Erythrocyte distribution width (RBC) [Ratio] 16.1 % High 11.8-14.4 [facility] Comment on above: Performed By: #### H EPXA, CDP, OSMO ####[address] [phone])[phone] Director: Boo Vinson MD Hematocrit (Bld) [Volume fraction] 30.3 % Low 40.7-50.3 [facility] Comment on above: Performed By: #### H EPXA, CDP, OSMO ####[address] 96677[facility] [place])[phone] Director: Boo Vinson MD Hemoglobin (Bld) [Mass/Vol] 8.9 g/dL Low 13.0-17.0 [facility] Comment on above: Performed By: #### H EPXA, CDP, OSMO ####[address] 13230[facility] [place])[phone] Director: Boo Vinson MD Immature granulocytes/100 WBC (Bld) 1 % High 0 [facility] Comment on above: Performed By: #### H EPXA, CDP, OSMO ####[address] 884[address] [place])[phone] Director: Boo Vinson MD Lymphocytes (Bld) [#/Vol] 3.14 10*3/uL Normal 1.10-3.70 [facility] Comment on above: Performed By: #### H EPXA, CDP, OSMO ####[address] 098[address] [place])[phone] Director: Boo Vinson MD Lymphocytes/100 WBC (Bld) 29 % Normal 24-43 [facility] Comment on above: Performed By: #### H EPXA, CDP, OSMO ####[address] [phone])[phone] Director: Boo Vinson MD MCH (RBC) [Entitic mass] 28.9 pg Normal 25.2-33.5 [facility] Comment on above: Performed By: #### H EPXA, CDP, OSMO ####[facility] [address] [place], [place] [phone])[phone] Director: Boo Vinson MD MCHC (RBC) [Mass/Vol] 29.4 g/dL Normal 28.4-34.8 [facility] Comment on above: Performed By: #### H EPXA, CDP, OSMO ####[facility] [address]gsl[address]34 [place], [place] [phone])[phone] Director: Boo Vinson MD MCV (RBC) [Entitic vol] 98.4 fL Normal 82.6-102.9 [facility] Comment on above: Performed By: #### H EPXA, CDP, OSMO ####[facility] [address]27[address] [place], [place] [phone] Director: Boo Vinson MD Monocytes (Bld) [#/Vol] 1.19 10*3/uL Normal 0.10-1.20 [facility] Comment on above: Performed By: #### H EPXA, CDP, OSMO ####[facility] [address] [place], [place] [phone])[phone] Director: Boo Vinson MD Monocytes/100 WBC (Bld) 11 % Normal 3-12 [facility] Comment on above: Performed By: #### H EPXA, CDP, OSMO ####[facility] [address] [place], [place] [phone] Director: Boo Vinson MD Neutrophil (Seg) 53 % Normal 36-65 [facility] Comment on above: Performed By: #### H EPXA, CDP, OSMO ####[facility] Fzeaxwmtvlhw1528 [place], [place] [phone] Director: Boo Vinson MD NRBC Automated 0.0 per 100 WBC Normal 0.0 [facility] Comment on above: Performed By: #### H EPXA, CDP, OSMO ####[facility] Wxlvdsmvvb[address]9 [place] [address] Lab Director: Boo Vinson MD Platelet mean volume (Bld) [Entitic vol] 9.9 fL Normal 8.1-13.5 [facility] Comment on above: Performed By: #### H EPXA, CDP, OSMO ####[facility] [address] [place] [address] [phone] Director: Boo Vinson MD Platelets (Bld) [#/Vol] 430 10*3/uL Normal 138-453 [facility] Comment on above: Performed By: #### H EPXA, CDP, OSMO ####[facility] [address] [place] [address] Lab Director: Boo Vinson MD RBC (Bld) [#/Vol] 3.08 10*6/uL Low 4.21-5.77 [facility] Comment on above: Performed By: #### H EPXA, CDP, OSMO ####[facility] [address] [place] [address] [id number])[phone] Director: Boo Vinson MD RBC morphology finding Nom (Bld) ANISOCYTOSIS PRESENT Normal [facility] Comment on above: Performed By: #### H EPXA, CDP, OSMO ####[facility] [address] [place] [address] Lab Director: Boo Vinson MD WBC (Bld) [#/Vol] 10.9 10*3/uL Normal 3.5-11.3 [facility] Comment on above: Performed By: #### H EPXA, CDP, OSMO ####[facility] Z[address]uv[address]loamqb7560 [place] [address] Lab Director: Boo Vinson MD Glucose (POC)on 11-15-2023 Glucose [Mass/Vol] 125 mg/dL High 74-100 [facility] Glucose,Whole Bloodon 2023 Glucose [Mass/Vol] 109 mg/dL Normal 75-110 [facility] Glucose [Mass/Vol] 159 mg/dL High 75-110 [facility] Glucose [Mass/Vol] 136 mg/dL High 75-110 [facility] Heparin Anti-Xaon 11-15-2023 Heparin Anti-Xa 0.29 IU/L Normal [facility] Comment on above: Performed By: #### H EPXA, CDP, OSMO ####[facility] [address] [place] [address] Lab Director: Boo Vinson MD Heparin Anti-Xa 0.57 IU/L Normal [facility] Comment on above: Performed By: #### H EPXA ####[facility] Tqmndfpbmwnr0804 [place] [address] Lab Director: Boo Vinson MD Heparin Anti-Xa 0.58 IU/L Normal [facility] Comment on above: Performed By: #### H EPXA ####[facility] In[address]shyseob4819 [place] [address] Lab Director: Boo Vinson MD Osmolalityon 11-15-2023 Osmolality [Osmolality] 294 mosm/kg Normal 275-295 [facility] Comment on above: Performed By: #### H EPXA, CDP, OSMO ####[facility] [address]obb9392 [place] [address] Lab Director: Boo Vinson MD Osmolality, Urineon 11-15-19 24 Osmolality - Urine 230 mOsm/kg Normal 80-1300 [facility] Comment on above: Performed By: #### U RNA, UOSMO ####[facility] Flvrnmjidhhc8539 [place], [place] [id number] lab Director: Boo Vinson MD Sodium, Random Uron 11-15-19 24 Sodium (U) [Moles/Vol] 105 mmol/L Normal [facility] Comment on above: Result Comment: No n ormal range established. Performed By: #### U RNA, UOSMO ####[employer] Qxurcgcnzpjj3575 [place], [place] [phone] Lab Director: Boo Vinson MD Arterial Bld Gas,POCon 11-13 Korey Test Positive Normal [facility] FIO2 40.0 Normal [facility] HCO3 (Bld) [Moles/Vol] 26.3 mmol/L Normal 21.0-28.0 [facility] Mode of Delivery PRVC Normal [facility] O2 Device Adult Ventilator Normal [facility] Oxygen saturation in Blood 96.8 % Normal 94.0-98.0 [facility] pCO2, Arterial 37.3 mm Hg Normal 35.0-48.0 [facility] pH, Arterial 7.457 High 7.350-7.450 [facility] pO2, Arterial 83.4 mm Hg Normal 83.0-108.0 [facility] Positive Base Excess (calc) 2.3 mmol/L Normal 0.0-3.0 [facility] Site Drawn Right Radial Artery Normal [facility] Basic Metab w/rfx MGon 11-13 Anion gap [Moles/Vol] 13 mmol/L Normal 9-16 [facility] Comment on above: Performed By: #### B MPX ####[employer] Bfxxjtztvbgd0379 [place] [address] lab Director: Boo Vinson MD Anion gap [Moles/Vol] 10 mmol/L Normal 9-16 [facility] Comment on above: Performed By: #### B MPX, HEPXA, CDP ####[employer] [address] [place], [place] [phone] Lab Director: Boo Vinson MD Anion gap [Moles/Vol] 9 mmol/L Normal 9-16 [facility] Comment on above: Performed By: #### B MPX ####[facility] [address]eqjolx8986 [place] [address] Lab Director: Boo Vinson MD Calcium [Mass/Vol] 9.2 mg/dL Normal 8.6-10.4 [facility] Comment on above: Performed By: #### B MPX ####[facility] Qwuurxnmdcql6449 [place] [address] Lab Director: Boo Vinson MD Calcium [Mass/Vol] 8.9 mg/dL Normal 8.6-10.4 [facility] Comment on above: Performed By: #### B MPX, HEPXA, CDP ####[facility] Rsgktmelbpem2387 [place] [address] Lab Director: Boo Vinson MD Calcium [Mass/Vol] 9.1 mg/dL Normal 8.6-10.4 [facility] Comment on above: Performed By: #### B MPX ####[facility] Wuxxskkpwgww6645 [place] [address] Lab Director: Boo Vinson MD Chloride [Moles/Vol] 104 mmol/L Normal 98-107 [facility] Comment on above: Performed By: #### B MPX ####[facility] Gy[address]adlftqvvi4525 [place] [address] Lab Director: Boo Vinson MD Chloride [Moles/Vol] 107 mmol/L Normal 98-107 [facility] Comment on above: Performed By: #### B MPX, HEPXA, CDP ####[facility] Z[address]idmwrgx9772 [place] [address] Lab Director: Boo Vinson MD Chloride [Moles/Vol] 106 mmol/L Normal 98-107 [facility] Comment on above: Performed By: #### B MPX ####[facility] [address]af[address] [place], [place] [phone] Director: Boo Vinson MD CO2 [Moles/Vol] 25 mmol/L Normal -[address] [place] [address] Comment on above: Performed By: #### B MPX ####[facility] Q[address]ufembeh0132 [place] [address] Lab Director: Boo Vinson MD CO2 [Moles/Vol] 26 mmol/L Normal -[address] [place] [address] Comment on above: Performed By: #### B MPX, HEPXA, CDP ####[facility] Zziuutxptupz8236 [place] [address] Lab Director: Boo Vinson MD CO2 [Moles/Vol] 27 mmol/L Normal [address] [place] [address] Comment on above: Performed By: #### B MPX ####[facility] P[address]agszgydpr3369 [place] [address] Lab Director: Boo Vinson MD Creatinine [Mass/Vol] 0.8 mg/dL Normal 0.70-1.20 [facility] Comment on above: Performed By: #### B MPX ####[facility] Xokuqtssqbgm7979 [place] [address] Lab Director: Boo Vinson MD Creatinine [Mass/Vol] 0.6 mg/dL Low 0.70-1.20 [facility] Comment on above: Performed By: #### B MPX, HEPXA, CDP ####[facility] Hcsvryjsfwsl8084 [place] [address] Lab Director: Boo Vinson MD Creatinine [Mass/Vol] 0.7 mg/dL Normal 0.70-1.20 [facility] Comment on above: Performed By: #### B MPX ####[facility] Jyazovpgyszi7700 [place] [address] lab Director: Boo Vinson MD GFR/1.73 sq M.predicted among non-blacks MDRD (S/P/Bld) [Vol rate/Area] mL/min/{1.73_m2} Normal >60 [facility] Comment on above: Result Comment: Thes e results are not intended for use in patients <18 years of age.eGFR results are calculated without a race factor using the 2021 CKD-EPI equation.Careful clinical correlation is recommended, particularly when comparing to results calculated using previous equations.The CKD-EPI equation is less accurate in patients with extremes of muscle mass, extra-renal metabolism of creatine, excessive creatine ingestion, or following therapy that affects renal tubular secretion. Performed By: #### B MPX ####[employer] [place], [place] [address]8 lab Director: Boo Vinson MD GFR/1.73 sq M.predicted among non-blacks MDRD (S/P/Bld) [Vol rate/Area] mL/min/{1.73_m2} Normal >60 [facility] Comment on above: Result Comment: Thes e results are not intended for use in patients <18 years of age.eGFR results are calculated without a race factor using the 2021 CKD-EPI equation.Careful clinical correlation is recommended, particularly when comparing to results calculated using previous equations.The CKD-EPI equation is less accurate in patients with extremes of muscle mass, extra-renal metabolism of creatine, excessive creatine ingestion, or following therapy that affects renal tubular secretion. Performed By: #### B MPX, HEPXA, CDP ####[employer] [place], [place] [address]8 lab Director: Boo Vinson MD GFR/1.73 sq M.predicted among non-blacks MDRD (S/P/Bld) [Vol rate/Area] mL/min/{1.73_m2} Normal >60 [facility] Comment on above: Result Comment: Thes e results are not intended for use in patients <18 years of age.eGFR results are calculated without a race factor using the 2021 CKD-EPI equation.Careful clinical correlation is recommended, particularly when comparing to results calculated using previous equations.The CKD-EPI equation is less accurate in patients with extremes of muscle mass, extra-renal metabolism of creatine, excessive creatine ingestion, or following therapy that affects renal tubular secretion. Performed By: #### B MPX ####[facility] Rxldzjndbxcj7258 [place], [place] [phone] Director: Boo Vinson MD Glucose [Mass/Vol] 159 mg/dL High 74-99 [facility] Comment on above: Performed By: #### B MPX ####[facility] Oygk[address]hvzuuj4768 [place], [place] [phone] Director: Boo Vinson MD Glucose [Mass/Vol] 115 mg/dL High [address] [place] [address] Comment on above: Performed By: #### B MPX, HEPXA, CDP ####[facility] [address] [place] [address] [id number])[phone] Director: Boo Vinson MD Glucose [Mass/Vol] 145 mg/dL High [facility]99 [facility] Comment on above: Performed By: #### B MPX ####[facility] Lxvmawrtdkzq2714 [place] [address] Lab Director: Boo Vinson MD Potassium [Moles/Vol] 4.2 mmol/L Normal 3.7-5.3 [facility] Comment on above: Performed By: #### B MPX ####[facility] Zufcfjtqdinb6039 [place] [address] Lab Director: Boo Vinson MD Potassium [Moles/Vol] 4.0 mmol/L Normal 3.7-5.3 [facility] Comment on above: Result Comment: SPEC IMEN SLIGHTLY HEMOLYZED, RESULTS MAY BE ADVERSELY AFFECTED. Performed By: #### B MPX, HEPXA, CDP ####[facility] Dmwbfzoawnzc4440 [place], [place] [phone] Director: Boo Vinson MD Potassium [Moles/Vol] 4.2 mmol/L Normal 3.7-5.3 [facility] Comment on above: Performed By: #### B MPX ####[facility] Jowyfbfweere9934 [place] [address] Lab Director: Boo Vinson MD Sodium [Moles/Vol] 142 mmol/L Normal 136-145 [facility] Comment on above: Performed By: #### B MPX ####[facility] Wtnkxjeteqme4978 [place] [address] Lab Director: Boo Vinson MD Sodium [Moles/Vol] 143 mmol/L Normal 136-145 [facility] Comment on above: Performed By: #### B MPX, HEPXA, CDP ####[facility] Ulbrepywuhnz4931 [place], [place] [phone] Director: Boo Vinson MD Sodium [Moles/Vol] 142 mmol/L Normal 136-145 [facility] Comment on above: Performed By: #### B MPX ####[facility] Ojttptysuhqe4752 [place] [address] Lab Director: Boo Vinson MD Urea nitrogen [Mass/Vol] 7 mg/dL Normal 6-20 [facility] Comment on above: Performed By: #### B MPX ####[facility] Mpkqzhrsalua0732 [place], [place] [phone] Director: Boo Vinson MD Urea nitrogen [Mass/Vol] 8 mg/dL Normal 6-20 [facility] Comment on above: Performed By: #### B MPX, HEPXA, CDP ####[facility] Sbgmkygstdpv0632 [place], [place] [phone] Director: Boo Vinson MD Urea nitrogen [Mass/Vol] 7 mg/dL Normal 6-20 [facility] Comment on above: Performed By: #### B MPX ####[facility] Zzqzsjvdujya4963 [place] [address] Lab Director: Boo Vinson MD CBC with Diffon 11-14-2023 Abs. Basophil 0.03 k/uL Normal 0.00-0.20 [facility] Comment on above: Performed By: #### B MPX, HEPXA, CDP ####[facility] Tpfsnxyovvqa4744 [place], [place] [address] [place])[phone] Director: Boo Vinson MD Abs.Imm.Granulocyte 0.04 k/uL Normal 0.00-0.30 [facility] Comment on above: Performed By: #### B MPX, HEPXA, CDP ####[facility] Wexkbpmlwwwu2937 [place], [place] [address] [place])[phone] Director: Boo Vinson MD Abs.Neutrophil (Seg) 4.51 k/uL Normal 1.50-8.10 [facility] Comment on above: Performed By: #### B MPX, HEPXA, CDP ####[facility] [address]vm[address] [place] [address] 55[address] [place])[phone] Director: Boo Vinson MD Basophils/100 WBC (Bld) 0 % Normal 0-2 [facility] Comment on above: Performed By: #### B MPX, HEPXA, CDP ####[facility] Mmtbhvdozgza7741 [place], [place] [address] [place])[phone] Director: Boo Vinson MD Eosinophils (Bld) [#/Vol] 0.20 10*3/uL Normal 0.00-0.44 [facility] Comment on above: Performed By: #### B MPX, HEPXA, CDP ####[facility] Zysylkxyxols2387 [place], [place] [address] [place])[phone] Director: Boo Vinson MD Eosinophils/100 WBC (Bld) 3 % Normal 1-4 [facility] Comment on above: Performed By: #### B MPX, HEPXA, CDP ####[facility] Dtljceuoxksh0887 [place] [address] Lab Director: Boo Vinson MD Erythrocyte distribution width (RBC) [Ratio] 16.1 % High 11.8-14.4 [facility] Comment on above: Performed By: #### B MPX, HEPXA, CDP ####[facility] Xmpgiwqezvup2479 [place], [place] [phone] Director: Boo Vinson MD Hematocrit (Bld) [Volume fraction] 25.8 % Low 40.7-50.3 [facility] Comment on above: Performed By: #### B MPX, HEPXA, CDP ####[facility] Cmemkhmdksye8871 [place], [place] [address] [place])[phone] Director: Boo Vinson MD Hemoglobin (Bld) [Mass/Vol] 7.8 g/dL Low 13.0-17.0 [facility] Comment on above: Performed By: #### B MPX, HEPXA, CDP ####[facility] Xqeewpmtgitg7408 [place], [place] [phone])[phone] Director: Boo Vinson MD Immature granulocytes/100 WBC (Bld) 1 % High 0 [facility] Comment on above: Performed By: #### B MPX, HEPXA, CDP ####[facility] Ejkzebgqstcx9725 [place], [place] [phone] Director: Boo Vinson MD Lymphocytes (Bld) [#/Vol] 1.42 10*3/uL Normal 1.10-3.70 [facility] Comment on above: Performed By: #### B MPX, HEPXA, CDP ####[facility] Cchkjjrdheht8373 [place], [place] [phone] Director: Boo Vinson MD Lymphocytes/100 WBC (Bld) 20 % Low 24-43 [facility] Comment on above: Performed By: #### B MPX, HEPXA, CDP ####[facility] Znqvmreznosg5358 [place], [place] [phone] Director: Boo Vinson MD MCH (RBC) [Entitic mass] 29.4 pg Normal 25.2-33.5 [facility] Comment on above: Performed By: #### B MPX, HEPXA, CDP ####[facility] Tnehgguedbsa2053 [place], [place] [phone] Director: Boo Vinson MD MCHC (RBC) [Mass/Vol] 30.2 g/dL Normal 28.4-34.8 [facility] Comment on above: Performed By: #### B MPX, HEPXA, CDP ####[facility] Irdxxwznibvk2795 [place], [place] [address] [place])[phone] Director: Boo Vinson MD MCV (RBC) [Entitic vol] 97.4 fL Normal 82.6-102.9 [facility] Comment on above: Performed By: #### B MPX, HEPXA, CDP ####[facility] [address] [place] [address] [phone] Director: Boo Vinson MD Monocytes (Bld) [#/Vol] 0.94 10*3/uL Normal 0.10-1.20 [facility] Comment on above: Performed By: #### B MPX, HEPXA, CDP ####[facility] [address] [place] [address] [phone])[phone] Director: Boo Vinson MD Monocytes/100 WBC (Bld) 13 % High 3-12 [facility] Comment on above: Performed By: #### B MPX, HEPXA, CDP ####[facility] Peygtgkrzubp6331 [place], [place] [phone] Director: Boo Vinson MD Neutrophil (Seg) 63 % Normal 36-65 [facility] Comment on above: Performed By: #### B MPX, HEPXA, CDP ####[facility] Nuhskfynlmfp7438 [place], [place] [phone] Director: Boo Vinson MD NRBC Automated 0.0 per 100 WBC Normal 0.0 [facility] Comment on above: Performed By: #### B MPX, HEPXA, CDP ####[facility] Sjmgbpnelcxd6837 [place] [address] Lab Director: Boo Vinson MD Platelet mean volume (Bld) [Entitic vol] 10.7 fL Normal 8.1-13.5 [facility] Comment on above: Performed By: #### B MPX, HEPXA, CDP ####[facility] Spptvdmaeppf9712 [place] [address] Lab Director: Boo Vinson MD Platelets (Bld) [#/Vol] 374 10*3/uL Normal 138-453 [facility] Comment on above: Performed By: #### B MPX, HEPXA, CDP ####[facility] [address] [place] [address] Lab Director: Boo Vinson MD RBC (Bld) [#/Vol] 2.65 10*6/uL Low 4.21-5.77 [facility] Comment on above: Performed By: #### B MPX, HEPXA, CDP ####[facility] Xlrhoqgffdwk1786 [place] [address] Lab Director: Boo Vinson MD RBC morphology finding Nom (Bld) ANISOCYTOSIS PRESENT Normal [facility] Comment on above: Performed By: #### B MPX, HEPXA, CDP ####[facility] Hiqajbbnzhpz9569 [place] [address] Lab Director: Boo Vinson MD WBC (Bld) [#/Vol] 7.1 10*3/uL Normal 3.5-11.3 [facility] Comment on above: Performed By: #### B MPX, HEPXA, CDP ####[facility] Erbbsleqmnvn6946 [place] [address] Lab Director: Boo Vinson MD Glucose (POC)on 11-14-2023 Glucose [Mass/Vol] 117 mg/dL High 74-100 [facility] Heparin Anti-Xaon 11-14-2023 Heparin Anti-Xa 0.39 IU/L Normal [facility] Comment on above: Performed By: #### B MPX, HEPXA, CDP ####[employer] Fptjrdwphogl7894 [place], [place] [id number] lab Director: Boo Vinson MD Lactic Acid (POC)on 11-14-19 24 Lactate [Moles/Vol] 0.4 mmol/L Low 0.56-1.39 [facility] Arterial Bld Gas,POCon 11-12 FIO2 40.0 Normal [facility] HCO3 (Bld) [Moles/Vol] 28.0 mmol/L Normal 21.0-28.0 [facility] Oxygen saturation in Blood 95.2 % Normal 94.0-98.0 [facility] pCO2, Arterial 39.8 mm Hg Normal 35.0-48.0 [facility] pH, Arterial 7.456 High 7.350-7.450 [facility] pO2, Arterial 72.8 mm Hg Low 83.0-108.0 [facility] Positive Base Excess (calc) 3.8 mmol/L High 0.0-3.0 [facility] Site Drawn Arterial Line Normal [facility] Basic Metab w/rfx MGon 11-12 Anion gap [Moles/Vol] 10 mmol/L Normal 9-16 [facility] Comment on above: Performed By: #### B MPX ####[employer] Nmqxlasjhuyg1799 [place], [place] [id number] lab Director: Boo Vinson MD Anion gap [Moles/Vol] 9 mmol/L Normal 9-17 [facility] Comment on above: Performed By: #### B MPX, MG ####[employer] Qaaoqqfpbqka0324 [place] [address] Lab Director: Boo Vinson MD Calcium [Mass/Vol] 8.6 mg/dL Normal 8.6-10.4 [facility] Comment on above: Performed By: #### B MPX ####[facility] Wsidoqgszlsa3113 [place] [address] Lab Director: Boo Vinson MD Calcium [Mass/Vol] 8.7 mg/dL Normal 8.6-10.4 [facility] Comment on above: Performed By: #### B MPX, MG ####[facility] Afopiiyxckww0673 [place], [place] [phone] Director: Boo Vinson MD Chloride [Moles/Vol] 105 mmol/L Normal 98-107 [facility] Comment on above: Performed By: #### B MPX ####[facility] [address] [place], [place] [phone] Director: Boo Vinson MD Chloride [Moles/Vol] 108 mmol/L High 98-107 [facility] Comment on above: Performed By: #### B MPX, MG ####[facility] Dykiviesxssz[address] [place], [place] [phone] Director: Boo Vinson MD CO2 [Moles/Vol] 28 mmol/L Normal 20-31 [facility] Comment on above: Performed By: #### B MPX ####[facility] Vzhvhxshsrek5988 [place] [address] Lab Director: Boo Vinson MD CO2 [Moles/Vol] 30 mmol/L Normal 20-31 [facility] Comment on above: Performed By: #### B MPX, MG ####[facility] [address]hthpb[address] [place], [place] [phone] Director: Boo Vinson MD Creatinine [Mass/Vol] 0.7 mg/dL Normal 0.70-1.20 [facility] Comment on above: Performed By: #### B MPX ####[facility] Rjnhafaqecdb[address] [place] [address] Lab Director: Boo Vinson MD Creatinine [Mass/Vol] 0.7 mg/dL Normal 0.70-1.20 [facility] Comment on above: Performed By: #### B MPX, MG ####[facility] [address] [place] [address] lab Director: Boo Vinson MD GFR/1.73 sq M.predicted among non-blacks MDRD (S/P/Bld) [Vol rate/Area] mL/min/{1.73_m2} Normal >60 [facility] Comment on above: Result Comment: Thes e results are not intended for use in patients <18 years of age.eGFR results are calculated without a race factor using the 2021 CKD-EPI equation.Careful clinical correlation is recommended, particularly when comparing to results calculated using previous equations.The CKD-EPI equation is less accurate in patients with extremes of muscle mass, extra-renal metabolism of creatine, excessive creatine ingestion, or following therapy that affects renal tubular secretion. Performed By: #### B MPX ####[facility] [address] [place] [address] lab Director: Boo Vinson MD GFR/1.73 sq M.predicted among non-blacks MDRD (S/P/Bld) [Vol rate/Area] mL/min/{1.73_m2} Normal >60 [facility] Comment on above: Result Comment: Thes e results are not intended for use in patients <18 years of age.eGFR results are calculated without a race factor using the 2021 CKD-EPI equation.Careful clinical correlation is recommended, particularly when comparing to results calculated using previous equations.The CKD-EPI equation is less accurate in patients with extremes of muscle mass, extra-renal metabolism of creatine, excessive creatine ingestion, or following therapy that affects renal tubular secretion. Performed By: #### B MPX, MG ####[facility] [address] [place] [address] [phone] Lab Director: Boo Vinson MD Glucose [Mass/Vol] 114 mg/dL High 74-99 [facility] Comment on above: Performed By: #### B MPX ####[facility] Ps[address]fprcwkvy4064 [place], [place] [phone] Director: Boo Vinson MD Glucose [Mass/Vol] 126 mg/dL High 74-99 [facility] Comment on above: Performed By: #### B MPX, MG ####[facility] [address]yfclha[address]63 [place], [place] [phone] Director: Boo Vinson MD Potassium [Moles/Vol] 3.6 mmol/L Low 3.7-5.3 [facility] Comment on above: Performed By: #### B MPX ####[facility] Avsfomlrjbwv[address]01 [place], [place] [phone] Director: Boo Vinson MD Potassium [Moles/Vol] 3.3 mmol/L Low 3.7-5.3 [facility] Comment on above: Performed By: #### B MPX, MG ####[facility] Cchjohrkbjgh[address]94 [place], [place] [phone] Director: Boo Vinson MD Sodium [Moles/Vol] 143 mmol/L Normal 136-145 [facility] Comment on above: Performed By: #### B MPX ####[facility] V[address]iorp[address]hr[address]16 [place], [place] [phone] Director: Boo Vinson MD Sodium [Moles/Vol] 147 mmol/L High 136-145 [facility] Comment on above: Performed By: #### B MPX, MG ####[facility] Gphvzuanktig6711 [place], [place] [phone] Director: Boo Vinson MD Urea nitrogen [Mass/Vol] 7 mg/dL Normal 6-20 [facility] Comment on above: Performed By: #### B MPX ####[facility] Tebuglszbfer[address] [place], [place] [address] [place])[phone] Director: Boo Vinson MD Urea nitrogen [Mass/Vol] 6 mg/dL Normal 6-20 [facility] Comment on above: Performed By: #### B MPX, MG ####[address] [address] [place])[phone] Director: Boo Vinson MD CBC with Diffon 11-13-2023 Abs. Basophil 0.03 k/uL Normal 0.00-0.20 [facility] Comment on above: Performed By: #### H EPXA, CDP ####[address] [address] [place])[phone] Director: Boo Vinson MD Abs.Imm.Granulocyte 0.03 k/uL Normal 0.00-0.30 [facility] Comment on above: Performed By: #### H EPXA, CDP ####[address] [address] [place])[phone] Director: Boo Vinson MD Abs.Neutrophil (Seg) 3.14 k/uL Normal 1.50-8.10 [facility] Comment on above: Performed By: #### H EPXA, CDP ####[address] [address] [place])[phone] Director: Boo Vinson MD Basophils/100 WBC (Bld) 0 % Normal 0-2 [facility] Comment on above: Performed By: #### H EPXA, CDP ####[address] [address] [place])[phone] Director: Boo Vinson MD Eosinophils (Bld) [#/Vol] 0.85 10*3/uL High 0.00-0.44 [facility] Comment on above: Performed By: #### H EPXA, CDP ####[address] [phone] Director: Boo Vinson MD Eosinophils/100 WBC (Bld) 13 % High 1-4 [facility] Comment on above: Performed By: #### H EPXA, CDP ####[facility] B[address]yypr[address]du[address] [place], [place] [phone] Director: Boo Vinson MD Erythrocyte distribution width (RBC) [Ratio] 16.7 % High 11.8-14.4 [facility] Comment on above: Performed By: #### H EPXA, CDP ####[facility] R[address]uhng6514 [place] [address] Lab Director: Boo Vinson MD Hematocrit (Bld) [Volume fraction] 25.6 % Low 40.7-50.3 [facility] Comment on above: Performed By: #### H EPXA, CDP ####[facility] [address]lladhaicr[address] [place], [place] [address] [place])[phone] Director: Boo Vinson MD Hemoglobin (Bld) [Mass/Vol] 7.8 g/dL Low 13.0-17.0 [facility] Comment on above: Performed By: #### H EPXA, CDP ####[facility] H[address]xeb[address] [place], [place] [phone] Director: Boo Vinson MD Immature granulocytes/100 WBC (Bld) 0 % Normal 0 [facility] Comment on above: Performed By: #### H EPXA, CDP ####[facility] Pna[address]zm[address]u56[address] [place], [place] [phone] Director: Boo Vinson MD Lymphocytes (Bld) [#/Vol] 1.97 10*3/uL Normal 1.10-3.70 [facility] Comment on above: Performed By: #### H EPXA, CDP ####[facility] Kczkhharzirh6541 [place] [address] Lab Director: oBo Vinson MD Lymphocytes/100 WBC (Bld) 29 % Normal 24-43 [facility] Comment on above: Performed By: #### H EPXA, CDP ####[facility] Ktjkfkhlqfzp7104 [place] [address] Lab Director: Boo Vinson MD MCH (RBC) [Entitic mass] 29.1 pg Normal 25.2-33.5 [facility] Comment on above: Performed By: #### H EPXA, CDP ####[facility] Leblzusagpnt7886 [place], [place] [phone] Director: Boo Vinson MD MCHC (RBC) [Mass/Vol] 30.5 g/dL Normal 28.4-34.8 [facility] Comment on above: Performed By: #### H EPXA, CDP ####[facility] [address] [place] [address] [place])[phone] Director: Boo Vinson MD MCV (RBC) [Entitic vol] 95.5 fL Normal 82.6-102.9 [facility] Comment on above: Performed By: #### H EPXA, CDP ####[facility] [address] [place] [address] [phone] Director: Boo Vinson MD Monocytes (Bld) [#/Vol] 0.74 10*3/uL Normal 0.10-1.20 [facility] Comment on above: Performed By: #### H EPXA, CDP ####[facility] Zzutgqjwbcal0584 [place], [place] [phone] Director: Boo Vinson MD Monocytes/100 WBC (Bld) 11 % Normal 3-12 [facility] Comment on above: Performed By: #### H EPXA, CDP ####[facility] Lxckrttkaamv2837 [place], [place] [phone] Director: Boo Vinson MD Neutrophil (Seg) 47 % Normal 36-65 [facility] Comment on above: Performed By: #### H EPXA, CDP ####[facility] Wtdxkyllibxp9[address] [place], [place] [phone] Director: Boo Vinson MD NRBC Automated 0.0 per 100 WBC Normal 0.0 [facility] Comment on above: Performed By: #### H EPXA, CDP ####[facility] [address] [place] [address] [phone] Director: Boo Vinson MD Platelet mean volume (Bld) [Entitic vol] 10.4 fL Normal 8.1-13.5 [facility] Comment on above: Performed By: #### H EPXA, CDP ####[address] [phone] Director: Boo Vinson MD Platelets (Bld) [#/Vol] 333 10*3/uL Normal 138-453 [facility] Comment on above: Performed By: #### H EPXA, CDP ####[address] [phone] Director: Boo Vinson MD RBC (Bld) [#/Vol] 2.68 10*6/uL Low 4.21-5.77 [facility] Comment on above: Performed By: #### H EPXA, CDP ####[facility] [address] [place] [address] [place])[phone] Director: Boo Vinson MD RBC morphology finding Nom (Bld) ANISOCYTOSIS PRESENT Normal [facility] Comment on above: Performed By: #### H EPXA, CDP ####[facility] Bmxxprsljasi4068 [place], [place] [phone] Director: Boo Vinsno MD WBC (Bld) [#/Vol] 6.8 10*3/uL Normal 3.5-11.3 [facility] Comment on above: Performed By: #### H EPXA, CDP ####[facility] Fuw[address]xrfavfkr6617 [place] [address] Lab Director: Boo Vinson MD Glucose (POC)on 11-13-2023 Glucose [Mass/Vol] 112 mg/dL High 74-100 [facility] Heparin Anti-Xaon 11-13-2023 Heparin Anti-Xa 0.33 IU/L Normal [facility] Comment on above: Performed By: #### H EPXA, CDP ####[facility] [address]zugcynorimp5072 [place] [address] Lab Director: Boo Vinson MD Magnesiumon 11-13-2023 Magnesium [Mass/Vol] 2.1 mg/dL Normal 1.6-2.6 [facility] Comment on above: Performed By: #### B MPX, MG ####[facility] Cgbqdywyoipq9924 [place] [address] Lab Director: Boo Vinson MD Antithrombin III [place] 11-11 Antithrombin III Act 70 % Low 83-122 [facility] Comment on above: Result Comment: Yolanda ents receiving Hirudin may have a falsely decreased Antitrombin III Activity. Performed By: #### A T3A ####[facility] Slxhcyiswrzs6076 [place], [place] [phone] Director: Boo Vinson MD Antithrombin III Act 83 % Normal 83-122 [facility] Comment on above: Result Comment: Yolanda ents receiving Hirudin may have a falsely decreased Antitrombin III Activity. Performed By: #### A T3A ####[facility] Kl[address]wtcikgz[address] [place] [address] Lab Director: Boo Vinson MD Antithrombin III Act 81 % Low 83-122 [facility] Comment on above: Result Comment: Yolanda ents receiving Hirudin may have a falsely decreased Antitrombin III Activity. Performed By: #### A T3A ####[facility] Daxdjgbztvor7121 [place] [address] Lab Director: Boo Vinson MD Antithrombin III Act 84 % Normal 83-122 [facility] Comment on above: Result Comment: Yolanda ents receiving Hirudin may have a falsely decreased Antitrombin III Activity. Performed By: #### A T3A ####[facility] [address]ribkt[address]99 [place] [address] Lab Director: Boo Vinson MD#### AHBFR ####[facility] [address] [place] [address] Lab Director: Albert Jennings MD Performed By: #### A T3A ####[facility] [address]ub[address]ag3995 [place] [address] Lab Director: Boo Vinson MD Antithrombin III Act 66 % Low 83-122 [facility] Comment on above: Result Comment: Yolanda ents receiving Hirudin may have a falsely decreased Antitrombin III Activity. Performed By: #### V NCR, AT3A ####[facility] Qvksxxlqyhji6791 [place] [address] Lab Director: Boo Vinson MD#### AHBFR ####[facility] [address] [place] [address] [phone] Director: Albert Jennings MD Antithrombin III Act 97 % Normal 83-122 [facility] Comment on above: Result Comment: Yolanda ents receiving Hirudin may have a falsely decreased Antitrombin III Activity. Performed By: #### A T3A ####[facility] U[address]usngqvzpr8251 [place] [address] Lab Director: Boo Vinson MD#### AHBFR ####[facility] [address] [place] [address] Lab Director: Albert Jennings MD Antithrombin III Act 52 % Low 83-122 [facility] Comment on above: Result Comment: Yolanda ents receiving Hirudin may have a falsely decreased Antitrombin III Activity. Performed By: #### A T3A ####[facility] Ivdwtfrwfhrj5269 [place] [address] Lab Director: Boo Vinson MD#### AHBFR ####[facility] [address] [place] [address] Lab Director: Albert Jennings MD Antithrombin III Act 75 % Low 83-122 [facility] Comment on above: Result Comment: Yolanda ents receiving Hirudin may have a falsely decreased Antitrombin III Activity. Performed By: #### A T3A ####[facility] Qjkmuchmkwtg6420 [place] [address] Lab Director: Boo Vinson MD Antithrombin III Act 71 % Low 83-122 [facility] Comment on above: Result Comment: Yolanda ents receiving Hirudin may have a falsely decreased Antitrombin III Activity. Performed By: #### A T3A ####[facility] Oifxbjnlwmrm3553 [place] [address] Lab Director: Boo Vinson MD Arterial Bld Gas,POCon 11-11 Korey Test NOT APPLICABLE Normal [facility] FIO2 40.0 Normal [facility] HCO3 (Bld) [Moles/Vol] 30.3 mmol/L High 21.0-28.0 [facility] Mode of Delivery PRVC Normal [facility] O2 Device Adult Ventilator Normal [facility] Oxygen saturation in Blood 96.6 % Normal 94.0-98.0 [facility] pCO2, Arterial 41.7 mm Hg Normal 35.0-48.0 [facility] pH, Arterial 7.468 High 7.350-7.450 [facility] pO2, Arterial 81.8 mm Hg Low 83.0-108.0 [facility] Positive Base Excess (calc) 6.0 mmol/L High 0.0-3.0 [facility] Site Drawn Arterial Line Normal [facility] Basic Metab w/rfx MGon 11-11 Anion gap [Moles/Vol] 12 mmol/L Normal 9-16 [facility] Comment on above: Performed By: #### B MPX ####[facility] Bpuyaznmseyd8092 [place], [place] [phone] Director: Boo Vinson MD Anion gap [Moles/Vol] 11 mmol/L Normal 9-16 [facility] Comment on above: Performed By: #### B MPX ####[facility] Avolrcckdxnm8952 [place], [place] [phone] Director: Boo Vinson MD Calcium [Mass/Vol] 8.4 mg/dL Low 8.6-10.4 [facility] Comment on above: Performed By: #### B MPX ####[facility] Zdtrynoacorl9271 [place], [place] [phone] Director: Boo Vinson MD Calcium [Mass/Vol] 8.6 mg/dL Normal 8.6-10.4 [facility] Comment on above: Performed By: #### B MPX ####[facility] Kffakmsggm[address]0060 [place], [place] [phone] Director: Boo Vinson MD Chloride [Moles/Vol] 103 mmol/L Normal 98-107 [facility] Comment on above: Performed By: #### B MPX ####[facility] Mzjmzzvnhdch1415 [place], [place] [phone] Director: Boo Vinson MD Chloride [Moles/Vol] 104 mmol/L Normal 98-107 [facility] Comment on above: Performed By: #### B MPX ####[facility] Opdngmkewpen0259 [place], [place] [phone] Director: Boo Vinson MD CO2 [Moles/Vol] 28 mmol/L Normal 20-31 [facility] Comment on above: Performed By: #### B MPX ####[facility] [address] [place] [address] [phone] Director: Boo Vinson MD CO2 [Moles/Vol] 28 mmol/L Normal 20-31 [facility] Comment on above: Performed By: #### B MPX ####[facility] [address] [place] [address] [id number])[phone] Director: Boo Vinson MD Creatinine [Mass/Vol] 0.6 mg/dL Low 0.70-1.20 [facility] Comment on above: Performed By: #### B MPX ####[facility] [address] [place] [address] [phone] Director: Boo Vinson MD Creatinine [Mass/Vol] 0.6 mg/dL Low 0.70-1.20 [facility] Comment on above: Performed By: #### B MPX ####[facility] [address] [place] [address] [phone] Director: Boo Vinson MD GFR/1.73 sq M.predicted among non-blacks MDRD (S/P/Bld) [Vol rate/Area] mL/min/{1.73_m2} Normal >60 [facility] Comment on above: Result Comment: Thes e results are not intended for use in patients <18 years of age.eGFR results are calculated without a race factor using the 2020 CKD-EPI equation.Careful clinical correlation is recommended, particularly when comparing to results calculated using previous equations.The CKD-EPI equation is less accurate in patients with extremes of muscle mass, extra-renal metabolism of creatine, excessive creatine ingestion, or following therapy that affects renal tubular secretion. Performed By: #### B MPX ####[address] [address] Lab Director: Boo Vinson MD GFR/1.73 sq M.predicted among non-blacks MDRD (S/P/Bld) [Vol rate/Area] mL/min/{1.73_m2} Normal >60 [facility] Comment on above: Result Comment: Thes e results are not intended for use in patients <18 years of age.eGFR results are calculated without a race factor using the 2020 CKD-EPI equation.Careful clinical correlation is recommended, particularly when comparing to results calculated using previous equations.The CKD-EPI equation is less accurate in patients with extremes of muscle mass, extra-renal metabolism of creatine, excessive creatine ingestion, or following therapy that affects renal tubular secretion. Performed By: #### B MPX ####[facility] [address] [place] [address] [place])[phone] Director: Boo Vinson MD Glucose [Mass/Vol] 128 mg/dL High 74-100 [facility] Comment on above: Performed By: #### B MPX ####[address] [address] [place])[phone] Director: Boo Vinson MD Glucose [Mass/Vol] 105 mg/dL High 74-99 [facility] Comment on above: Performed By: #### B MPX ####[address] [address] Lab Director: Boo Vinson MD Potassium [Moles/Vol] 3.6 mmol/L Low 3.7-5.3 [facility] Comment on above: Performed By: #### B MPX ####[facility] [address] [place] [address] [phone] Director: Boo Vinson MD Potassium [Moles/Vol] 3.6 mmol/L Low 3.7-5.3 [facility] Comment on above: Performed By: #### B MPX ####[address] [phone] Director: Boo Vinson MD Sodium [Moles/Vol] 143 mmol/L Normal 136-145 [facility] Comment on above: Performed By: #### B MPX ####[facility] Tkwnzhtleuad0753 [place], [place] [phone] Director: Boo Vinson MD Sodium [Moles/Vol] 143 mmol/L Normal 136-145 [facility] Comment on above: Performed By: #### B MPX ####[facility] Riciegwctvth6402 [place], [place] [phone] Director: Boo Vinson MD Urea nitrogen [Mass/Vol] 8 mg/dL Normal 6-20 [facility] Comment on above: Performed By: #### B MPX ####[facility] Zzftmujfauax0485 [place], [place] [phone] Director: Boo Vinson MD Urea nitrogen [Mass/Vol] 8 mg/dL Normal 6-20 [facility] Comment on above: Performed By: #### B MPX ####[address] [phone] Director: Boo Vinson MD CBCon 11-12-2023 Erythrocyte distribution width (RBC) [Ratio] 17.0 % High 11.8-14.4 [facility] Comment on above: Performed By: #### C BC ####[facility] Bksadmokrphz6490 [place], [place] [phone] Director: Boo Vinson MD Hematocrit (Bld) [Volume fraction] 25.7 % Low 40.7-50.3 [facility] Comment on above: Performed By: #### C BC ####[facility] Ltgnsvrqijov4549 [place], [place] [phone] Director: Boo Vinson MD Hemoglobin (Bld) [Mass/Vol] 7.9 g/dL Low 13.0-17.0 [facility] Comment on above: Performed By: #### C BC ####[facility] Pcaorjhzmhde7935 [place], [place] [phone] Director: Boo Vinson MD MCH (RBC) [Entitic mass] 29.0 pg Normal 25.2-33.5 [facility] Comment on above: Performed By: #### C BC ####[address] [phone] Director: Boo Vinson MD MCHC (RBC) [Mass/Vol] 30.7 g/dL Normal 28.4-34.8 [facility] Comment on above: Performed By: #### C BC ####[address] [phone] Director: Boo Vinson MD MCV (RBC) [Entitic vol] 94.5 fL Normal 82.6-102.9 [facility] Comment on above: Performed By: #### C BC ####[address] [address] [place])[phone] Director: Boo Vinson MD NRBC Automated 0.0 per 100 WBC Normal 0.0 [facility] Comment on above: Performed By: #### C BC ####[address] [phone] Director: Boo Vinson MD Platelet mean volume (Bld) [Entitic vol] 10.0 fL Normal 8.1-13.5 [facility] Comment on above: Performed By: #### C BC ####[address] [phone] Director: Boo Vinson MD Platelets (Bld) [#/Vol] 328 10*3/uL Normal 138-453 [facility] Comment on above: Performed By: #### C BC ####[address] [phone])[phone] Director: Boo Vinson MD RBC (Bld) [#/Vol] 2.72 10*6/uL Low 4.21-5.77 [facility] Comment on above: Performed By: #### C BC ####[facility] Ncwnzvigcfwi4307 [place], [place] [phone] Director: Boo Vinson MD WBC (Bld) [#/Vol] 8.2 10*3/uL Normal 3.5-11.3 [facility] Comment on above: Performed By: #### C BC ####[facility] Oudaodfnimgp7680 [place], [place] [phone] Director: Boo Vinson MD Heparin Anti-Xaon 11-12-2023 Heparin Anti-Xa 0.33 IU/L Normal [facility] Comment on above: Performed By: #### O SMO, HEPXA, TRIG ####[facility] Igvauahpuesb4825 [place], [place] [phone] Director: Boo Vinson MD Lactic Acid (POC)on 11-12-19 24 Lactate [Moles/Vol] 0.5 mmol/L Low 0.56-1.39 [facility] Osmolalityon 11-12-2023 Osmolality [Osmolality] 293 mosm/kg Normal 275-295 [facility] Comment on above: Performed By: #### O SMO, HEPXA, TRIG ####[facility] Br[address]ett[address] [place], [place] [phone] Director: Boo Vinson MD Osmolality, Urineon 11-12-19 24 Osmolality - Urine 369 mOsm/kg Normal 80-1300 [facility] Comment on above: Performed By: #### U OSMO ####[facility] Rvvbycdzfuiu4271 [place], [place] [phone] Director: Boo Vinson MD Triglycerideson 11-12-2023 Triglyceride [Mass/Vol] 175 mg/dL High <150 [facility] Comment on above: Result Comment: Trig lyceride Guidelines: <150 Desirable 150- 199 Borderline 200-499 High >499 Very high Based on AHA Guidelines for fasting triglyceride, June 2012. Performed By: #### O SMO, HEPXA, TRIG ####[facility] Yvtoxrtxwfom0256 [place], [place] [phone] Director: Boo Vinson MD Basic Metabolic Profon 11-10 Anion gap [Moles/Vol] 8 mmol/L Low 9-16 [facility] Comment on above: Performed By: #### B MP ####[address] [phone] Director: Boo Vinson MD Calcium [Mass/Vol] 8.8 mg/dL Normal 8.6-10.4 [facility] Comment on above: Performed By: #### B MP ####[address] [phone] Director: Boo Vinson MD Chloride [Moles/Vol] 103 mmol/L Normal 98-107 [facility] Comment on above: Performed By: #### B MP ####[facility] [address] [place] [address] [phone] Director: Boo Vinson MD CO2 [Moles/Vol] 31 mmol/L Normal 20-31 [facility] Comment on above: Performed By: #### B MP ####[address] [place], [place] [phone] Director: Boo Vinson MD Creatinine [Mass/Vol] 0.6 mg/dL Low 0.70-1.20 [facility] Comment on above: Performed By: #### B MP ####[address] [phone] Director: Boo Vinson MD GFR/1.73 sq M.predicted among non-blacks MDRD (S/P/Bld) [Vol rate/Area] mL/min/{1.73_m2} Normal >60 [facility] Comment on above: Result Comment: Thes e results are not intended for use in patients <18 years of age.eGFR results are calculated without a race factor using the 2020 CKD-EPI equation.Careful clinical correlation is recommended, particularly when comparing to results calculated using previous equations.The CKD-EPI equation is less accurate in patients with extremes of muscle mass, extra-renal metabolism of creatine, excessive creatine ingestion, or following therapy that affects renal tubular secretion. Performed By: #### B MP ####[address] [phone] Director: Boo Vinson MD Glucose [Mass/Vol] 128 mg/dL High 74-99 [facility] Comment on above: Performed By: #### B MP ####[address] [phone] Director: Boo Vinson MD Potassium [Moles/Vol] 3.9 mmol/L Normal 3.7-5.3 [facility] Comment on above: Performed By: #### B MP ####[address] [phone] Director: Boo Vinson MD Sodium [Moles/Vol] 142 mmol/L Normal 136-145 [facility] Comment on above: Performed By: #### B MP ####[address] [place], [place] [phone] Director: Boo Vinson MD Urea nitrogen [Mass/Vol] 7 mg/dL Normal 6-20 [facility] Comment on above: Performed By: #### B MP ####[address] [phone] Director: Boo Vinson MD MRI LIMITED BRAINon 11-11-19 24 MRI LIMITED BRAIN Normal [facility] Hgb Free, Plasmaon 4 Hgb Free, Plasma 7.8 mg/dL Normal 0.0-9.7 [facility] Comment on above: Result Comment: (NOT E)Performed By: [employer] [place] [address] [id number] Director: Edgardo Abdullahi MD, PhDCLIA Number: [id number] Performed By: #### L ACTIC, MG, PT, VNCR, CBC, PTT, BMP, FIB, IOCAL ####[address] [phone] Lab Director: Boo Vinson MD#### AHBFR ####[address] [address] Lab Director: Albert Jennings MD Hgb Free, Plasmaon Hgb Free, Plasma 4.0 mg/dL Normal 0.0-9.7 [facility] Comment on above: Result Comment: (NOT E)Performed By: [place] [id number] Director: Edgardo Abdullahi MD, PhDCLIA Number: [id number] Performed By: #### V NCR, AT3A ####[address] [phone] Lab Director: Boo Vinson MD#### AHBFR ####[address] [phone] lab Director: Albert Jennings MD Sharee 11-08-2023 ACT 151 sec High 79-149 [facility] APTTon 11-08-2023 aPTT Coag (Bld) [Time] 37.5 s High 23.0-36.5 [facility] Comment on above: Result Comment: IV H eparin Therapy Range:66.0-92.0 sec Performed By: #### L ACTIC, MG, PT, VNCR, CBC, PTT, BMP, FIB, IOCAL ####[address] [phone] Lab Director: Boo Vinson MD#### AHBFR ####[address] [phone] Lab Director: Albert Jennings MD aPTT Coag (Bld) [Time] 32.2 s Normal 23.0-36.5 [facility] Comment on above: Result Comment: IV H eparin Therapy Range:66.0-92.0 sec Performed By: #### L IVP, CBC, IOCAL, PTT, FIB, MG, BMP, PT, LACTIC ####[facility] [place] [address] lab Director: Boo Vinson MD Arterial Bld Gas,POCon 11-07 FIO2 40.0 Normal [facility] FIO2 40.0 Normal [facility] HCO3 (Bld) [Moles/Vol] 28.1 mmol/L High 21.0-28.0 [facility] HCO3 (Bld) [Moles/Vol] 28.4 mmol/L High 21.0-28.0 [facility] HCO3 (Bld) [Moles/Vol] 28.8 mmol/L High 21.0-28.0 [facility] O2 Device Adult Ventilator Normal [facility] O2 Device Adult Ventilator Normal [facility] Oxygen saturation in Blood 97.9 % Normal 94.0-98.0 [facility] Oxygen saturation in Blood 98.4 % High 94.0-98.0 [facility] Oxygen saturation in Blood 98.0 % Normal 94.0-98.0 [facility] pCO2, Arterial 34.8 mm Hg Low 35.0-48.0 [facility] pCO2, Arterial 36.8 mm Hg Normal 35.0-48.0 [facility] pCO2, Arterial 41.1 mm Hg Normal 35.0-48.0 [facility] pH, Arterial 7.515 High 7.350-7.450 [facility] pH, Arterial 7.495 High 7.350-7.450 [facility] pH, Arterial 7.454 High 7.350-7.450 [facility] pO2, Arterial 90.5 mm Hg Normal 83.0-108.0 [facility] pO2, Arterial 102.4 mm Hg Normal 83.0-108.0 [facility] pO2, Arterial 99.0 mm Hg Normal 83.0-108.0 [facility] Positive Base Excess (calc) 4.9 mmol/L High 0.0-3.0 [facility] Positive Base Excess (calc) 4.8 mmol/L High 0.0-3.0 [facility] Positive Base Excess (calc) 4.4 mmol/L High 0.0-3.0 [facility] Site Drawn Arterial Line Normal [facility] Site Drawn Arterial Line Normal [facility] Basic Metabolic Profon 11-07 Anion gap [Moles/Vol] 9 mmol/L Normal 9-16 [facility] Comment on above: Performed By: #### P TT, LIVP, IOCAL, MG, BMP, PT, FIB, CBC, LACTIC ####[facility] [address] [place], [place] [phone] Lab Director: Boo Vinson MD Anion gap [Moles/Vol] 10 mmol/L Normal 9-16 [facility] Comment on above: Performed By: #### L ACTIC, MG, PT, VNCR, CBC, PTT, BMP, FIB, IOCAL ####[facility] [address] [place] [address] [phone] Lab Director: Boo Vinson MD#### AHBFR ####[facility] [address] [place] [address] Lab Director: Albert Jennings MD Anion gap [Moles/Vol] 9 mmol/L Normal 9-16 [facility] Comment on above: Performed By: #### L IVP, CBC, IOCAL, PTT, FIB, MG, BMP, PT, LACTIC ####[facility] [address] [place] [address] [phone] Lab Director: Boo Vinson MD Calcium [Mass/Vol] 8.2 mg/dL Low 8.6-10.4 [facility] Comment on above: Performed By: #### P TT, LIVP, IOCAL, MG, BMP, PT, FIB, CBC, LACTIC ####[facility] [address] [place] [address] Lab Director: Boo Vinson MD Calcium [Mass/Vol] 8.5 mg/dL Low 8.6-10.4 [facility] Comment on above: Performed By: #### L ACTIC, MG, PT, VNCR, CBC, PTT, BMP, FIB, IOCAL ####[facility] [address] [place] [address] Lab Director: Boo Vinson MD#### [facility] ####[address] [address] Lab Director: Albert Jennings MD Calcium [Mass/Vol] 8.3 mg/dL Low 8.6-10.4 [facility] Comment on above: Performed By: #### L IVP, CBC, IOCAL, PTT, FIB, MG, BMP, PT, LACTIC ####[facility] [address] [place] [address] Lab Director: Boo Vinson MD Chloride [Moles/Vol] 108 mmol/L High 98-107 [facility] Comment on above: Performed By: #### P TT, LIVP, IOCAL, MG, BMP, PT, FIB, CBC, LACTIC ####[facility] [address] [place] [address] Lab Director: Boo Vinson MD Chloride [Moles/Vol] 107 mmol/L Normal 98-107 [facility] Comment on above: Performed By: #### L ACTIC, MG, PT, VNCR, CBC, PTT, BMP, FIB, IOCAL ####[facility] [address] [place] [address] Lab Director: Boo Vinson MD#### AHBFR ####[facility] [address] [place] [address] lab Director: Albert Jennings MD Chloride [Moles/Vol] 106 mmol/L Normal 98-107 [facility] Comment on above: Performed By: #### L IVP, CBC, IOCAL, PTT, FIB, MG, BMP, PT, LACTIC ####[facility] [address] [place] [address] Lab Director: Boo Vinson MD CO2 [Moles/Vol] 27 mmol/L Normal 20-31 [facility] Comment on above: Performed By: #### P TT, LIVP, IOCAL, MG, BMP, PT, FIB, CBC, LACTIC ####[address] [address] Lab Director: Boo Vinson MD CO2 [Moles/Vol] 27 mmol/L Normal 20-31 [facility] Comment on above: Performed By: #### L ACTIC, MG, PT, VNCR, CBC, PTT, BMP, FIB, IOCAL ####[facility] [address] [place] [address] Lab Director: Boo Vinson MD#### AHBFR ####[facility] [address] [place] [address] [phone] Lab Director: Albert Jennings MD CO2 [Moles/Vol] 27 mmol/L Normal 20-31 [facility] Comment on above: Performed By: #### L IVP, CBC, IOCAL, PTT, FIB, MG, BMP, PT, LACTIC ####[facility] [address] [place] [address])[phone] Director: Boo Vinson MD Creatinine [Mass/Vol] 0.6 mg/dL Low 0.70-1.20 [facility] Comment on above: Performed By: #### P TT, LIVP, IOCAL, MG, BMP, PT, FIB, CBC, LACTIC ####[facility] [address] [place], [place] [phone] Lab Director: Boo Vinson MD Creatinine [Mass/Vol] 0.6 mg/dL Low 0.70-1.20 [facility] Comment on above: Performed By: #### L ACTIC, MG, PT, VNCR, CBC, PTT, BMP, FIB, IOCAL ####[facility] [address] [place] [address] Lab Director: Boo Vinson MD#### [facility] ####[facility] [address] [place] [address] [phone] lab Director: Albert Jennings MD Creatinine [Mass/Vol] 0.6 mg/dL Low 0.70-1.20 [facility] Comment on above: Performed By: #### L IVP, CBC, IOCAL, PTT, FIB, MG, BMP, PT, LACTIC ####[address] [phone] lab Director: Boo Vinson MD GFR/1.73 sq M.predicted among non-blacks MDRD (S/P/Bld) [Vol rate/Area] mL/min/{1.73_m2} Normal >60 [facility] Comment on above: Result Comment: Thes e results are not intended for use in patients <18 years of age.eGFR results are calculated without a race factor using the 2020 CKD-EPI equation.Careful clinical correlation is recommended, particularly when comparing to results calculated using previous equations.The CKD-EPI equation is less accurate in patients with extremes of muscle mass, extra-renal metabolism of creatine, excessive creatine ingestion, or following therapy that affects renal tubular secretion. Performed By: #### P TT, LIVP, IOCAL, MG, BMP, PT, FIB, CBC, LACTIC ####[facility] [address] [place], [place] [phone] Lab Director: Boo Vinson MD GFR/1.73 sq M.predicted among non-blacks MDRD (S/P/Bld) [Vol rate/Area] mL/min/{1.73_m2} Normal >60 [facility] Comment on above: Result Comment: Thes e results are not intended for use in patients <18 years of age.eGFR results are calculated without a race factor using the 2020 CKD-EPI equation.Careful clinical correlation is recommended, particularly when comparing to results calculated using previous equations.The CKD-EPI equation is less accurate in patients with extremes of muscle mass, extra-renal metabolism of creatine, excessive creatine ingestion, or following therapy that affects renal tubular secretion. Performed By: #### L ACTIC, MG, PT, VNCR, CBC, PTT, BMP, FIB, IOCAL ####[facility] [address] [place] [address] Lab Director: Boo Vinson MD#### AHBFR ####[facility] [address] [place], [place] [phone] Lab Director: Albert Jennings MD Glucose [Mass/Vol] 135 mg/dL High [address] [place] [address] Comment on above: Performed By: #### P TT, LIVP, IOCAL, MG, BMP, PT, FIB, CBC, LACTIC ####[facility] Z[address]gtbunp[address]4 [place] [address] Lab Director: Boo Vinson MD Glucose [Mass/Vol] 158 mg/dL High [address] Comment on above: Performed By: #### L ACTIC, MG, PT, VNCR, CBC, PTT, BMP, FIB, IOCAL ####[facility] [address] [place] [address] Lab Director: Boo Vinson MD#### AHBFR ####[facility] [address] [place], [place] [phone] Lab Director: Albert Jennings MD Glucose [Mass/Vol] 147 mg/dL High [address] [place] [address] Comment on above: Performed By: #### L IVP, CBC, IOCAL, PTT, FIB, MG, BMP, PT, LACTIC ####[facility] [address] [place] [address] Lab Director: Boo Vinson MD Potassium [Moles/Vol] 3.5 mmol/L Low 3.7-5.3 [facility] Comment on above: Performed By: #### P TT, LIVP, IOCAL, MG, BMP, PT, FIB, CBC, LACTIC ####[facility] [address] [place] [address] Lab Director: Boo Vinson MD Potassium [Moles/Vol] 3.9 mmol/L Normal 3.7-5.3 [facility] Comment on above: Performed By: #### L ACTIC, MG, PT, VNCR, CBC, PTT, BMP, FIB, IOCAL ####[facility] [address] [place] [address] Lab Director: Boo Vinson MD#### [facility] ####[address] [phone] Lab Director: Albert Jennings MD Potassium [Moles/Vol] 3.7 mmol/L Normal 3.7-5.3 [facility] Comment on above: Performed By: #### L IVP, CBC, IOCAL, PTT, FIB, MG, BMP, PT, LACTIC ####[facility] [address] [place] [address] Lab Director: Boo Vinson MD Sodium [Moles/Vol] 144 mmol/L Normal 136-145 [facility] Comment on above: Performed By: #### P TT, LIVP, IOCAL, MG, BMP, PT, FIB, CBC, LACTIC ####[facility] [address] [place] [address] Lab Director: Boo Vinson MD Sodium [Moles/Vol] 144 mmol/L Normal 136-145 [facility] Comment on above: Performed By: #### L ACTIC, MG, PT, VNCR, CBC, PTT, BMP, FIB, IOCAL ####[facility] [address]zrzpfpuj[address] [place] [address] Lab Director: Boo Vinson MD#### AHBFR ####[facility] [address] [place] [address] [phone] Lab Director: Albert Jennings MD Sodium [Moles/Vol] 142 mmol/L Normal 136-145 [facility] Comment on above: Performed By: #### L IVP, CBC, IOCAL, PTT, FIB, MG, BMP, PT, LACTIC ####[facility] [address] [place] [address] Lab Director: Boo Vinson MD Urea nitrogen [Mass/Vol] 23 mg/dL [address] Comment on above: Performed By: #### P TT, LIVP, IOCAL, MG, BMP, PT, FIB, CBC, LACTIC ####[facility] [address] [place] [address] Lab Director: Boo Vinson MD Urea nitrogen [Mass/Vol] 22 mg/dL [address] Comment on above: Performed By: #### L ACTIC, MG, PT, VNCR, CBC, PTT, BMP, FIB, IOCAL ####[facility] Eswkkkfoyeqp9029 [place] [address] Lab Director: Boo Vinson MD#### AHBFR ####[facility] [address] [place] [address] [phone] Lab Director: Albert Jennings MD Urea nitrogen [Mass/Vol] 20 mg/dL Normal [address] [place] [address] Comment on above: Performed By: #### L IVP, CBC, IOCAL, PTT, FIB, MG, BMP, PT, LACTIC ####[facility] [address]dfgmbbl4017 [place] [address] Lab Director: Boo Vinson MD CBCon 11-08-2023 Erythrocyte distribution width (RBC) [Ratio] 16.8 % High 11.8-14.4 [facility] Comment on above: Performed By: #### L ACTIC, MG, PT, VNCR, CBC, PTT, BMP, FIB, IOCAL ####[facility] [address]dtzhihloxz3663 [place] [address] Lab Director: Boo Vinson MD#### AHBFR ####[facility] [address] [place] [address] Lab Director: Albert Jennings MD Erythrocyte distribution width (RBC) [Ratio] 16.8 % High 11.8-14.4 [facility] Comment on above: Performed By: #### L IVP, CBC, IOCAL, PTT, FIB, MG, BMP, PT, LACTIC ####[facility] [address] [place] [address] Lab Director: Boo Vinson MD Hematocrit (Bld) [Volume fraction] 25.6 % Low 40.7-50.3 [facility] Comment on above: Performed By: #### L ACTIC, MG, PT, VNCR, CBC, PTT, BMP, FIB, IOCAL ####[facility] [address] [place] [address] Lab Director: Boo Vinson MD#### AHBFR ####[facility] [address] [place] [address] Lab Director: Albert Jennings MD Hematocrit (Bld) [Volume fraction] 23.2 % Low 40.7-50.3 [facility] Comment on above: Performed By: #### L IVP, CBC, IOCAL, PTT, FIB, MG, BMP, PT, LACTIC ####[facility] [address] [place] [address] [id number] Lab Director: Boo Vinson MD Hemoglobin (Bld) [Mass/Vol] 7.7 g/dL Low 13.0-17.0 [facility] Comment on above: Performed By: #### L ACTIC, MG, PT, VNCR, CBC, PTT, BMP, FIB, IOCAL ####[facility] [address] [place] [address] Lab Director: Boo Vinson MD#### AHBFR ####[facility] [address] [place] [address] [phone] lab Director: Albert Jennings MD Hemoglobin (Bld) [Mass/Vol] 7.1 g/dL Low 13.0-17.0 [facility] Comment on above: Performed By: #### L IVP, CBC, IOCAL, PTT, FIB, MG, BMP, PT, LACTIC ####[address] [address] Lab Director: Boo Vinson MD MCH (RBC) [Entitic mass] 28.8 pg Normal 25.2-33.5 [facility] Comment on above: Performed By: #### L ACTIC, MG, PT, VNCR, CBC, PTT, BMP, FIB, IOCAL ####[facility] [address] [place] [address] [phone] Lab Director: Boo Vinson MD#### AHBFR ####[facility] [address] [place] [address] [phone] Lab Director: Albert Jennings MD MCH (RBC) [Entitic mass] 29.5 pg Normal 25.2-33.5 [facility] Comment on above: Performed By: #### L IVP, CBC, IOCAL, PTT, FIB, MG, BMP, PT, LACTIC ####[facility] [address] [place] [address] [id number] Lab Director: Boo Vinson MD MCHC (RBC) [Mass/Vol] 30.1 g/dL Normal 28.4-34.8 [facility] Comment on above: Performed By: #### L ACTIC, MG, PT, VNCR, CBC, PTT, BMP, FIB, IOCAL ####[facility] [address] [place] [address] lab Director: Boo Vinson MD#### AHBFR ####[address] [id number] lab Director: Albert Jennings MD MCHC (RBC) [Mass/Vol] 30.6 g/dL Normal 28.4-34.8 [facility] Comment on above: Performed By: #### L IVP, CBC, IOCAL, PTT, FIB, MG, BMP, PT, LACTIC ####[address] [address] lab Director: Boo Vinson MD MCV (RBC) [Entitic vol] 95.9 fL Normal 82.6-102.9 [facility] Comment on above: Performed By: #### L ACTIC, MG, PT, VNCR, CBC, PTT, BMP, FIB, IOCAL ####[address] [phone] lab Director: Boo Vinson MD#### AHBFR ####[address] [phone] lab Director: Albert Jennings MD MCV (RBC) [Entitic vol] 96.3 fL Normal 82.6-102.9 [facility] Comment on above: Performed By: #### L IVP, CBC, IOCAL, PTT, FIB, MG, BMP, PT, LACTIC ####[address] [phone] lab Director: Boo Vinson MD NRBC Automated 0.8 per 100 WBC High 0.0 [facility] Comment on above: Performed By: #### L ACTIC, MG, PT, VNCR, CBC, PTT, BMP, FIB, IOCAL ####[facility] [address] [place] [address] Lab Director: Boo Vinson MD#### AHBFR ####[facility] [address] [place] [address] [phone] lab Director: Albert Jennings MD NRBC Automated 0.6 per 100 WBC High 0.0 [facility] Comment on above: Performed By: #### L IVP, CBC, IOCAL, PTT, FIB, MG, BMP, PT, LACTIC ####[place] [address] Lab Director: Boo Vinson MD Platelet mean volume (Bld) [Entitic vol] 10.9 fL Normal 8.1-13.5 [facility] Comment on above: Performed By: #### L ACTIC, MG, PT, VNCR, CBC, PTT, BMP, FIB, IOCAL ####[place] [address] Lab Director: Boo Vinson MD#### AHBFR ####[address] [phone] lab Director: Albert Jennings MD Platelet mean volume (Bld) [Entitic vol] 11.1 fL Normal 8.1-13.5 [facility] Comment on above: Performed By: #### L IVP, CBC, IOCAL, PTT, FIB, MG, BMP, PT, LACTIC ####[facility] [address] [place] [address] Lab Director: Boo Vinson MD Platelets (Bld) [#/Vol] 241 10*3/uL Normal 138-453 [facility] Comment on above: Performed By: #### L ACTIC, MG, PT, VNCR, CBC, PTT, BMP, FIB, IOCAL ####[facility] [address]uf[address] [place] [address] Lab Director: Boo Vinson MD#### AHBFR ####[facility] [address] [place] [address] Lab Director: Albert Jennings MD Platelets (Bld) [#/Vol] 203 10*3/uL Normal 138-453 [facility] Comment on above: Performed By: #### L IVP, CBC, IOCAL, PTT, FIB, MG, BMP, PT, LACTIC ####[facility] [address] [place] [address] Lab Director: Boo Vinson MD RBC (Bld) [#/Vol] 2.67 10*6/uL Low 4.21-5.77 [facility] Comment on above: Performed By: #### L ACTIC, MG, PT, VNCR, CBC, PTT, BMP, FIB, IOCAL ####[facility] [address] [place] [address] Lab Director: Boo Vinson MD#### AHBFR ####[facility] [address] [address] Lab Director: Albert Jennings MD RBC (Bld) [#/Vol] 2.41 10*6/uL Low 4.21-5.77 [facility] Comment on above: Performed By: #### L IVP, CBC, IOCAL, PTT, FIB, MG, BMP, PT, LACTIC ####[facility] [address] [place] [address] Lab Director: Boo Vinson MD WBC (Bld) [#/Vol] 17.2 10*3/uL High 3.5-11.3 [facility] Comment on above: Performed By: #### L ACTIC, MG, PT, VNCR, CBC, PTT, BMP, FIB, IOCAL ####[facility] [address] [place] [address] Lab Director: Boo Vinson MD#### AHBFR ####[facility] [address]mp[address] [place], [place] [id number] lab Director: Albert Jennings MD WBC (Bld) [#/Vol] 12.7 10*3/uL High 3.5-11.3 [facility] Comment on above: Performed By: #### L IVP, CBC, IOCAL, PTT, FIB, MG, BMP, PT, LACTIC ####[facility] [address]trc[address]22 [place] [address] Lab Director: Boo Vinson MD Calcium, Ion[employer] 11-08-2023 Calcium [Moles/Vol] 1.12 mmol/L Low 1.13-1.33 [facility] Comment on above: Performed By: #### L ACTIC, MG, PT, VNCR, CBC, PTT, BMP, FIB, IOCAL ####[facility] [address] [place] [address] Lab Director: Boo Vinson MD#### AHBFR ####[facility] [address] [place] [address] lab Director: Albert Jennings MD Calcium [Moles/Vol] 1.15 mmol/L Normal 1.13-1.33 [facility] Comment on above: Performed By: #### L IVP, CBC, IOCAL, PTT, FIB, MG, BMP, PT, LACTIC ####[facility] [address]obteybyirrr[address] [place] [address] Lab Director: Boo Vinson MD Fibrinogenon 11-08-2023 Fibrinogen 152 mg/dL Low 203-521 [facility] Comment on above: Performed By: #### L ACTIC, MG, PT, VNCR, CBC, PTT, BMP, FIB, IOCAL ####[facility] Flpeszhllvol9534 [place] [address] Lab Director: Boo Vinson MD#### AHBFR ####[facility] [address] [place] [address] Lab Director: Albert Jennings MD Fibrinogen 137 mg/dL Low 203-521 [facility] Comment on above: Performed By: #### L IVP, CBC, IOCAL, PTT, FIB, MG, BMP, PT, LACTIC ####[address] [address] Lab Director: Boo Vinson MD Fibrinogen Panelon 4 Fibrinogen 191 mg/dL Normal 150-430 [facility] Comment on above: Performed By: #### C DP, CP, PT ####[address] [address] Lab Director: Boo Vinson MD#### ADYSF ####[address] [address] Lab Director: Albert Jennings MD Fibrinogen Antigen 278 mg/dL Normal 149-353 [facility] Comment on above: Result Comment: (NOT E)INTERPRETIVE INFORMATION: Fibrinogen AgThis test was developed and its performance characteristicsdetermined by [employer]. It has not been cleared orapproved by the U.S. Food and Drug Administration. This test wasperformed in a CLIA-certified laboratory and is intended forclinical purposes. Performed By: #### C DP, CP, PT ####[address] [address] Lab Director: Boo Vinson MD#### ADYSF ####[facility] [address] [place] [address] Lab Director: Albert Jennings MD Fibrinogen Ratio 1.46 ratio High 0.59-1.23 [facility] Comment on above: Result Comment: (NOT E)INTERPRETIVE INFORMATION: Fibrinogen Antigen/Functional RatioA ratio of greater than 1.23 is suggestive of a dysfibrogenemia.Performed By: [address] [address]Nbfgrcvaji Director: Edgardo Abdullahi MD, PhDCLIA Number: [id number] Performed By: #### C DP, CP, PT ####[address] [address] Lab Director: Boo Vinson MD#### ADYSF ####[address] [address] Lab Director: Albert Jennings MD Glucose (POC)on 11-08-2023 Glucose [Mass/Vol] 136 mg/dL High 74-100 [facility] Glucose [Mass/Vol] 153 mg/dL High 74-100 [facility] Glucose [Mass/Vol] 171 mg/dL High 74-100 [facility] Hgb Free, Plasmaon Hgb Free, Plasma 2.5 mg/dL Normal 0.0-9.7 [facility] Comment on above: Result Comment: (NOT E)Performed By: [address] [address]Qsnwehggtt Director: Edgardo Abdullahi MD, PhDCLIA Number: [id number] Performed By: #### A T3A ####[address] [address] Lab Director: Boo Vinson MD#### AHBFR ####[address] [address] Lab Director: Alebrt Jennings MD Lactic Acidon 11-08-2023 Lactic Acid,Whole Bl 0.9 mmol/L Normal 0.7-2.1 [facility] Comment on above: Performed By: #### L ACTIC, MG, PT, VNCR, CBC, PTT, BMP, FIB, IOCAL ####[address] [place] [address] Lab Director: Boo Vinson MD#### AHBFR ####[facility] [address] [place] [address] Lab Director: Albert Jennings MD Lactic Acid,Whole Bl 1.1 mmol/L Normal 0.7-2.1 [facility] Comment on above: Performed By: #### L IVP, CBC, IOCAL, PTT, FIB, MG, BMP, PT, LACTIC ####[facility] [address] [place] [address] Lab Director: Boo Vinson MD Liver Profileon 11-08-2023 Albumin [Mass/Vol] 3.3 g/dL Low 3.5-5.2 [facility] Comment on above: Performed By: #### P TT, LIVP, IOCAL, MG, BMP, PT, FIB, CBC, LACTIC ####[facility] [address] [place] [address] Lab Director: Boo Vinson MD Albumin [Mass/Vol] 3.5 g/dL Normal 3.5-5.2 [facility] Comment on above: Performed By: #### L IVP, CBC, IOCAL, PTT, FIB, MG, BMP, PT, LACTIC ####[facility] [address]un[address]22 [place] [address] Lab Director: Boo Vinson MD Albumin/Glob Ratio 2.0 Normal 1.0-2.5 [facility] Comment on above: Performed By: #### P TT, LIVP, IOCAL, MG, BMP, PT, FIB, CBC, LACTIC ####[facility] [address]mx8526 [place] [address] Lab Director: Boo Vinson MD Albumin/Glob Ratio 2.0 Normal 1.0-2.5 [facility] Comment on above: Performed By: #### L IVP, CBC, IOCAL, PTT, FIB, MG, BMP, PT, LACTIC ####[facility] [address] [place] [address] Lab Director: Boo Vinson MD Alkaline Phos 76 U/L Normal 40-129 [facility] Comment on above: Performed By: #### P TT, LIVP, IOCAL, MG, BMP, PT, FIB, CBC, LACTIC ####[facility] Tsrihadtkmxt8089 [place], [place] [phone] Director: Boo Vinson MD Alkaline Phos 84 U/L Normal 40-129 [facility] Comment on above: Performed By: #### L IVP, CBC, IOCAL, PTT, FIB, MG, BMP, PT, LACTIC ####[facility] [address] [place], [place] [address])[phone] Director: Boo Vinson MD ALT [Catalytic activity/Vol] 1090 U/L [address] Comment on above: Performed By: #### P TT, LIVP, IOCAL, MG, BMP, PT, FIB, CBC, LACTIC ####[facility] Xx[address]tr[address] [place], [place] [address])[phone] Director: Boo Vinson MD ALT [Catalytic activity/Vol] 908 U/L [address] Comment on above: Performed By: #### L IVP, CBC, IOCAL, PTT, FIB, MG, BMP, PT, LACTIC ####[facility] [address] [place], [place] [address] [place])[phone] Director: Boo Vinson MD AST [Catalytic activity/Vol] 216 U/L [address] Comment on above: Performed By: #### P TT, LIVP, IOCAL, MG, BMP, PT, FIB, CBC, LACTIC ####[facility] Xkxeoczhpxdf8517 [place], [place] [id number])[phone] Director: Boo Vinson MD AST [Catalytic activity/Vol] 135 U/L [address] Comment on above: Performed By: #### L IVP, CBC, IOCAL, PTT, FIB, MG, BMP, PT, LACTIC ####[address] [address] lab Director: Boo Vinson MD Bilirubin [Mass/Vol] 0.7 mg/dL Normal 0.00-1.20 [facility] Comment on above: Performed By: #### P TT, LIVP, IOCAL, MG, BMP, PT, FIB, CBC, LACTIC ####[facility] [address] [place] [address] lab Director: Boo Vinson MD Bilirubin [Mass/Vol] 0.8 mg/dL Normal 0.00-1.20 [facility] Comment on above: Performed By: #### L IVP, CBC, IOCAL, PTT, FIB, MG, BMP, PT, LACTIC ####[place] [address] lab Director: Boo Vinson MD Bilirubin, Indirect 0.3 mg/dL Normal 0.0-1.0 [facility] Comment on above: Performed By: #### P TT, LIVP, IOCAL, MG, BMP, PT, FIB, CBC, LACTIC ####[address] [address] lab Director: Boo Vinson MD Bilirubin, Indirect 0.4 mg/dL Normal 0.0-1.0 [facility] Comment on above: Performed By: #### L IVP, CBC, IOCAL, PTT, FIB, MG, BMP, PT, LACTIC ####[facility] [address] [place] [address] lab Director: Boo Vinson MD Bilirubin.indirect [Mass/Vol] 0.4 mg/dL High 0.00-0.30 [facility] Comment on above: Performed By: #### P TT, LIVP, IOCAL, MG, BMP, PT, FIB, CBC, LACTIC ####[address] [address] Lab Director: Boo Vinson MD Bilirubin.indirect [Mass/Vol] 0.4 mg/dL High 0.00-0.30 [facility] Comment on above: Performed By: #### L IVP, CBC, IOCAL, PTT, FIB, MG, BMP, PT, LACTIC ####[address] [address])[phone] Director: Boo Vinson MD Globulin (S) [Mass/Vol] 2.0 g/dL Normal [facility] Comment on above: Performed By: #### P TT, LIVP, IOCAL, MG, BMP, PT, FIB, CBC, LACTIC ####[address] [address] Lab Director: Boo Vinson MD Globulin (S) [Mass/Vol] 1.7 g/dL Normal [facility] Comment on above: Performed By: #### L IVP, CBC, IOCAL, PTT, FIB, MG, BMP, PT, LACTIC ####[address] [address])[phone] Director: Boo Vinson MD Protein [Mass/Vol] 5.3 g/dL Low 6.6-8.7 [facility] Comment on above: Performed By: #### P TT, LIVP, IOCAL, MG, BMP, PT, FIB, CBC, LACTIC ####[address] [place], [place] [address])[phone] Director: Boo Vinson MD Protein [Mass/Vol] 5.2 g/dL Low 6.6-8.7 [facility] Comment on above: Performed By: #### L IVP, CBC, IOCAL, PTT, FIB, MG, BMP, PT, LACTIC ####[address] [address] Lab Director: Boo Vinson MD Magnesiumon 11-08-2023 Magnesium [Mass/Vol] 2.3 mg/dL Normal 1.6-2.6 [facility] Comment on above: Performed By: #### P TT, LIVP, IOCAL, MG, BMP, PT, FIB, CBC, LACTIC ####[facility] [address] [place], [place] [phone] lab Director: Boo Vinson MD Magnesium [Mass/Vol] 2.2 mg/dL Normal 1.6-2.6 [facility] Comment on above: Performed By: #### L ACTIC, MG, PT, VNCR, CBC, PTT, BMP, FIB, IOCAL ####[facility] [address] [place] [address] lab Director: Boo Vinson MD#### AHBFR ####[facility] [address] [place] [address] lab Director: Albert Jennings MD Magnesium [Mass/Vol] 2.3 mg/dL Normal 1.6-2.6 [facility] Comment on above: Performed By: #### L IVP, CBC, IOCAL, PTT, FIB, MG, BMP, PT, LACTIC ####[facility] [address] [place] [address] lab Director: Boo Vinson MD PTon 11-08-2023 INR Coag (PPP) [Relative time] 1.6 {INR} Normal [facility] Comment on above: Result Comment: Ther apeutic Range: Moderate Anticoagulant Intensity: INR = 2.0-3.0 High Anticoagulant Intensity: INR = 2.5-3.5 Performed By: #### L ACTIC, MG, PT, VNCR, CBC, PTT, BMP, FIB, IOCAL ####[facility] [address] [place] [address] lab Director: Boo Vinson MD#### AHBFR ####[facility] [address] [place] [address] lab Director: Albert Jennings MD INR Coag (PPP) [Relative time] 1.5 {INR} Normal [facility] Comment on above: Result Comment: Ther apeutic Range: Moderate Anticoagulant Intensity: INR = 2.0-3.0 High Anticoagulant Intensity: INR = 2.5-3.5 Performed By: #### L IVP, CBC, IOCAL, PTT, FIB, MG, BMP, PT, LACTIC ####[facility] [address] [place] [address] [phone] Lab Director: Boo Vinson MD PT Coag (PPP) [Time] 18.7 s High 11.7-14.9 [facility] Comment on above: Performed By: #### L ACTIC, MG, PT, VNCR, CBC, PTT, BMP, FIB, IOCAL ####[address] [address] lab Director: Boo Vinson MD#### AHR ####[facility] [address] [place] [address] lab Director: Albert Jennings MD PT Coag (PPP) [Time] 17.6 s High 11.7-14.9 [facility] Comment on above: Performed By: #### L IVP, CBC, IOCAL, PTT, FIB, MG, BMP, PT, LACTIC ####[facility] [address] [place] [address] Lab Director: Boo Vinson MD Vancomycin,Randomon 11-08-19 24 Vancomycin 17.8 ug/mL Normal 5.0-40.0 [facility] Comment on above: Result Comment: High er trough serum vancomycin concentrations of 15-20 ug/mL are recommended for complicated infections such as bacteremia, endocarditis, osteomyelitis, meningitis, and hospital acquired pneumonia. Performed By: #### L ACTIC, MG, PT, VNCR, CBC, PTT, BMP, FIB, IOCAL ####[facility] [address] [place], [place] [address]8 [facility] Director: Boo Vinson MD#### AHBFR ####[facility] [address] [place] [address] [facility] Director: Albert Jennings MD XR CHEST PORTABLEon 11-08-19 XR CHEST PORTABLE Normal [facility] XR CHEST PORTABLE Normal [facility] Sharee 11-07-2023 ACT 185 sec High 79-149 [facility] ACT 174 sec High 79-149 [facility] APTTon 11-07-2023 aPTT Coag (Bld) [Time] 53.9 s High 23.0-36.5 [facility] Comment on above: Result Comment: IV H eparin Therapy Range:66.0-92.0 sec Performed By: #### B MP, FIB, LIVP, LACTIC, MG, PTT, PT, IOCAL, CBC ####[facility] [address] [place] [address] [facility] Director: Boo Vinson MD aPTT Coag (Bld) [Time] 55.1 s High 23.0-36.5 [facility] Comment on above: Result Comment: IV H eparin Therapy Range:66.0-92.0 sec Performed By: #### B MP, MG, PTT, PT, CBC, FIB, LACTIC, IOCAL ####[facility] [address] [place], [place] [address] [facility] Director: Boo Vinson MD aPTT Coag (Bld) [Time] 51.0 s High 23.0-36.5 [facility] Comment on above: Result Comment: IV H eparin Therapy Range:66.0-92.0 sec Performed By: #### C BC, FIB, LACTIC, PT, MG, IOCAL, LIVP, BMP, PTT ####[facility] [address]85 [place] [address] lab Director: Boo Vinson MD aPTT Coag (Bld) [Time] 50.6 s High 23.0-36.5 [facility] Comment on above: Result Comment: IV H eparin Therapy Range:66.0-92.0 sec Performed By: #### P TT, PT, MG, CBC, LACTIC, BMP, FIB, IOCAL ####[address] [place], [place] 8112508 lab Director: Boo Vinson MD aPTT Coag (d) [Time] 53.9 s High 23.0-36.5 [facility] Comment on above: Result Comment: IV H eparin Therapy Range:66.0-92.0 sec Performed By: #### P TT, LIVP, IOCAL, MG, BMP, PT, FIB, CBC, LACTIC ####[address] [place], [place] [id number] lab Director: Boo Vinson MD Arterial Bld Gas,POCon 11-06 Korey Test NOT APPLICABLE Normal [facility] Korey Test NOT APPLICABLE Normal [facility] Korey Test NOT APPLICABLE Normal [facility] FIO2 40.0 Normal [facility] FIO2 40.0 Normal [facility] FIO2 40.0 Normal [facility] FIO2 40.0 Normal [facility] HCO3 (Bld) [Moles/Vol] 28.2 mmol/L High 21.0-28.0 [facility] HCO3 (Bld) [Moles/Vol] 28.4 mmol/L High 21.0-28.0 [facility] HCO3 (Bld) [Moles/Vol] 27.4 mmol/L Normal 21.0-28.0 [facility] HCO3 (Bld) [Moles/Vol] 27.5 mmol/L Normal 21.0-28.0 [facility] HCO3 (Bld) [Moles/Vol] 26.7 mmol/L Normal 21.0-28.0 [facility] HCO3 (Bld) [Moles/Vol] 29.0 mmol/L High 21.0-28.0 [facility] Mode of Delivery Pressure Control Normal [facility] Mode of Delivery Pressure Control Normal [facility] Mode of Delivery Pressure Control Normal [facility] O2 Device Adult Ventilator Normal [facility] O2 Device Adult Ventilator Normal [facility] O2 Device Adult Ventilator Normal [facility] Oxygen saturation in Blood 98.6 % High 94.0-98.0 [facility] Oxygen saturation in Blood 98.6 % High 94.0-98.0 [facility] Oxygen saturation in Blood 97.3 % Normal 94.0-98.0 [facility] Oxygen saturation in Blood 97.7 % Normal 94.0-98.0 [facility] Oxygen saturation in Blood 98.7 % High 94.0-98.0 [facility] pCO2, Arterial 42.1 mm Hg Normal 35.0-48.0 [facility] pCO2, Arterial 42.8 mm Hg Normal 35.0-48.0 [facility] pCO2, Arterial 40.6 mm Hg Normal 35.0-48.0 [facility] pCO2, Arterial 40.8 mm Hg Normal 35.0-48.0 [facility] pCO2, Arterial 36.9 mm Hg Normal 35.0-48.0 [facility] pCO2, Arterial 40.4 mm Hg Normal 35.0-48.0 [facility] pH, Arterial 7.434 Normal 7.350-7.450 [facility] pH, Arterial 7.429 Normal 7.350-7.450 [facility] pH, Arterial 7.436 Normal 7.350-7.450 [facility] pH, Arterial 7.437 Normal 7.350-7.450 [facility] pH, Arterial 7.468 High 7.350-7.450 [facility] pH, Arterial 7.464 High 7.350-7.450 [facility] pO2, Arterial 115.2 mm Hg High 83.0-108.0 [facility] pO2, Arterial 115.7 mm Hg High 83.0-108.0 [facility] pO2, Arterial 91.3 mm Hg Normal 83.0-108.0 [facility] pO2, Arterial 92.0 mm Hg Normal 83.0-108.0 [facility] pO2, Arterial 114.9 mm Hg High 83.0-108.0 [facility] Positive Base Excess (calc) 3.6 mmol/L High 0.0-3.0 [facility] Positive Base Excess (calc) 3.7 mmol/L High 0.0-3.0 [facility] Positive Base Excess (calc) 3.1 mmol/L High 0.0-3.0 [facility] Positive Base Excess (calc) 2.9 mmol/L Normal 0.0-3.0 [facility] Positive Base Excess (calc) 2.8 mmol/L Normal 0.0-3.0 [facility] Positive Base Excess (calc) 4.9 mmol/L High 0.0-3.0 [facility] Site Drawn Arterial Line Normal [facility] Site Drawn Arterial Line Normal [facility] Site Drawn Right Radial Artery Normal [facility] Site Drawn Arterial Line Normal [facility] Basic Metabolic Profon 11-06 Anion gap [Moles/Vol] 11 mmol/L Normal -16 [facility] Comment on above: Performed By: #### B MP, FIB, LIVP, LACTIC, MG, PTT, PT, IOCAL, CBC ####[address] [place] [address] [facility] Director: Boo Vinson MD Anion gap [Moles/Vol] 9 mmol/L Normal -16 [facility] Comment on above: Performed By: #### B MP, MG, PTT, PT, CBC, FIB, LACTIC, IOCAL ####[address] [address] Lab Director: Boo Vinson MD Anion gap [Moles/Vol] 11 mmol/L Normal 9-16 [facility] Comment on above: Performed By: #### C BC, FIB, LACTIC, PT, MG, IOCAL, LIVP, BMP, PTT ####[facility] [address] [place] [address] Lab Director: Boo Vinson MD Anion gap [Moles/Vol] 7 mmol/L Low 9-16 [facility] Comment on above: Performed By: #### P TT, PT, MG, CBC, LACTIC, BMP, FIB, IOCAL ####[facility] [address] [place] [address] Lab Director: Boo Vinson MD Calcium [Mass/Vol] 8.2 mg/dL Low 8.6-10.4 [facility] Comment on above: Performed By: #### B MP, FIB, LIVP, LACTIC, MG, PTT, PT, IOCAL, CBC ####[facility] [address] [place] [address] Lab Director: Boo Vinson MD Calcium [Mass/Vol] 8.6 mg/dL Normal 8.6-10.4 [facility] Comment on above: Performed By: #### B MP, MG, PTT, PT, CBC, FIB, LACTIC, IOCAL ####[facility] [address] [place] [address] Lab Director: Boo Vinson MD Calcium [Mass/Vol] 8.5 mg/dL Low 8.6-10.4 [facility] Comment on above: Performed By: #### C BC, FIB, LACTIC, PT, MG, IOCAL, LIVP, BMP, PTT ####[facility] [address] [place] [address] Lab Director: Boo Vinson MD Calcium [Mass/Vol] 8.5 mg/dL Low 8.6-10.4 [facility] Comment on above: Performed By: #### P TT, PT, MG, CBC, LACTIC, BMP, FIB, IOCAL ####[facility] [address] [place], [place] [address])[phone] Director: Boo Vinson MD Chloride [Moles/Vol] 109 mmol/L High 98-107 [facility] Comment on above: Performed By: #### B MP, FIB, LIVP, LACTIC, MG, PTT, PT, IOCAL, CBC ####[facility] [address] [place], [place] [address])[phone] Director: Boo Vinson MD Chloride [Moles/Vol] 108 mmol/L High [address] [place] [address] Comment on above: Performed By: #### B MP, MG, PTT, PT, CBC, FIB, LACTIC, IOCAL ####[facility] [address] [place] [address])[phone] Director: Boo Vinson MD Chloride [Moles/Vol] 108 mmol/L High 98-107 [facility] Comment on above: Performed By: #### C BC, FIB, LACTIC, PT, MG, IOCAL, LIVP, BMP, PTT ####[address] [address] [place])[phone] Director: Boo Vinson MD Chloride [Moles/Vol] 108 mmol/L High 98-107 [facility] Comment on above: Performed By: #### P TT, PT, MG, CBC, LACTIC, BMP, FIB, IOCAL ####[facility] [address] [place], [place] [address])[phone] Director: Boo Vinson MD CO2 [Moles/Vol] 27 mmol/L Normal 20-31 [facility] Comment on above: Performed By: #### B MP, FIB, LIVP, LACTIC, MG, PTT, PT, IOCAL, CBC ####[facility] [address]395 [place] [address] Lab Director: Boo Vinson MD CO2 [Moles/Vol] 27 mmol/L Normal [address] [place] [address] Comment on above: Performed By: #### B MP, MG, PTT, PT, CBC, FIB, LACTIC, IOCAL ####[facility] [address]xfibeoecxi2374 [place] [address] Lab Director: Boo Vinson MD CO2 [Moles/Vol] 25 mmol/L Normal [address] [place] [address] Comment on above: Performed By: #### C BC, FIB, LACTIC, PT, MG, IOCAL, LIVP, BMP, PTT ####[facility] [address] [place] [address] Lab Director: Boo Vinson MD CO2 [Moles/Vol] 28 mmol/L Normal [address] [place] [address] Comment on above: Performed By: #### P TT, PT, MG, CBC, LACTIC, BMP, FIB, IOCAL ####[facility] Z[address]83 [place] [address] Lab Director: Boo Vinson MD Creatinine [Mass/Vol] 0.7 mg/dL Normal 0.70-1.20 [facility] Comment on above: Performed By: #### B MP, FIB, LIVP, LACTIC, MG, PTT, PT, IOCAL, CBC ####[facility] Mfmzouqhtwff9090 [place] [address] Lab Director: Boo Vinson MD Creatinine [Mass/Vol] 0.7 mg/dL Normal 0.70-1.20 [facility] Comment on above: Performed By: #### B MP, MG, PTT, PT, CBC, FIB, LACTIC, IOCAL ####[facility] [address]sbpttdv9847 [place] [address] Lab Director: Boo Vinson MD Creatinine [Mass/Vol] 0.7 mg/dL Normal 0.70-1.20 [facility] Comment on above: Performed By: #### C BC, FIB, LACTIC, PT, MG, IOCAL, LIVP, BMP, PTT ####[facility] [address] [place] [address] [id number] Lab Director: Boo Vinson MD Creatinine [Mass/Vol] 0.7 mg/dL Normal 0.70-1.20 [facility] Comment on above: Performed By: #### P TT, PT, MG, CBC, LACTIC, BMP, FIB, IOCAL ####[facility] [address] [place] [address] [id number] lab Director: Boo Vinson MD GFR/1.73 sq M.predicted among non-blacks MDRD (S/P/Bld) [Vol rate/Area] mL/min/{1.73_m2} Normal >60 [facility] Comment on above: Result Comment: Thes e results are not intended for use in patients <18 years of age.eGFR results are calculated without a race factor using the 2021 CKD-EPI equation.Careful clinical correlation is recommended, particularly when comparing to results calculated using previous equations.The CKD-EPI equation is less accurate in patients with extremes of muscle mass, extra-renal metabolism of creatine, excessive creatine ingestion, or following therapy that affects renal tubular secretion. Performed By: #### B MP, FIB, LIVP, LACTIC, MG, PTT, PT, IOCAL, CBC ####[facility] [address] [place] [address] [id number] Lab Director: Boo Vinson MD GFR/1.73 sq M.predicted among non-blacks MDRD (S/P/Bld) [Vol rate/Area] mL/min/{1.73_m2} Normal >60 [facility] Comment on above: Result Comment: Thes e results are not intended for use in patients <18 years of age.eGFR results are calculated without a race factor using the 2021 CKD-EPI equation.Careful clinical correlation is recommended, particularly when comparing to results calculated using previous equations.The CKD-EPI equation is less accurate in patients with extremes of muscle mass, extra-renal metabolism of creatine, excessive creatine ingestion, or following therapy that affects renal tubular secretion. Performed By: #### B MP, MG, PTT, PT, CBC, FIB, LACTIC, IOCAL ####[address] [id number] Lab Director: Boo Vinson MD GFR/1.73 sq M.predicted among non-blacks MDRD (S/P/Bld) [Vol rate/Area] mL/min/{1.73_m2} Normal >60 [facility] Comment on above: Result Comment: Thes e results are not intended for use in patients <18 years of age.eGFR results are calculated without a race factor using the 2021 CKD-EPI equation.Careful clinical correlation is recommended, particularly when comparing to results calculated using previous equations.The CKD-EPI equation is less accurate in patients with extremes of muscle mass, extra-renal metabolism of creatine, excessive creatine ingestion, or following therapy that affects renal tubular secretion. Performed By: #### C BC, FIB, LACTIC, PT, MG, IOCAL, LIVP, BMP, PTT ####[address] [id number] lab Director: Boo Vinson MD GFR/1.73 sq M.predicted among non-blacks MDRD (S/P/Bld) [Vol rate/Area] mL/min/{1.73_m2} Normal >60 [facility] Comment on above: Result Comment: Thes e results are not intended for use in patients <18 years of age.eGFR results are calculated without a race factor using the 2021 CKD-EPI equation.Careful clinical correlation is recommended, particularly when comparing to results calculated using previous equations.The CKD-EPI equation is less accurate in patients with extremes of muscle mass, extra-renal metabolism of creatine, excessive creatine ingestion, or following therapy that affects renal tubular secretion. Performed By: #### P TT, PT, MG, CBC, LACTIC, BMP, FIB, IOCAL ####[facility] [address] [place], [place] [id number] Lab Director: Boo Vinson MD Glucose [Mass/Vol] 152 mg/dL High 74-99 [facility] Comment on above: Performed By: #### B MP, FIB, LIVP, LACTIC, MG, PTT, PT, IOCAL, CBC ####[facility] [address] [place] [address] Lab Director: Boo Vinson MD Glucose [Mass/Vol] 154 mg/dL [address] Comment on above: Performed By: #### B MP, MG, PTT, PT, CBC, FIB, LACTIC, IOCAL ####[facility] [address] [place] [address] Lab Director: Boo Vinson MD Glucose [Mass/Vol] 189 mg/dL [address] Comment on above: Performed By: #### C BC, FIB, LACTIC, PT, MG, IOCAL, LIVP, BMP, PTT ####[facility] [address] [place] [address] 0[address] [place])[phone] Director: Boo Vinson MD Glucose [Mass/Vol] 140 mg/dL [address] Comment on above: Performed By: #### P TT, PT, MG, CBC, LACTIC, BMP, FIB, IOCAL ####[facility] [address] [place] [address] Lab Director: Boo Vinson MD Potassium [Moles/Vol] 3.4 mmol/L Low 3.7-5.3 [facility] Comment on above: Performed By: #### B MP, FIB, LIVP, LACTIC, MG, PTT, PT, IOCAL, CBC ####[facility] [address] [place] [address] Lab Director: Boo Vinson MD Potassium [Moles/Vol] 3.9 mmol/L Normal 3.7-5.3 [facility] Comment on above: Performed By: #### B MP, MG, PTT, PT, CBC, FIB, LACTIC, IOCAL ####[facility] [address] [place] [address] Lab Director: Boo Vinson MD Potassium [Moles/Vol] 3.6 mmol/L Low 3.7-5.3 [facility] Comment on above: Performed By: #### C BC, FIB, LACTIC, PT, MG, IOCAL, LIVP, BMP, PTT ####[facility] [address] [place] [address] Lab Director: Boo Vinson MD Potassium [Moles/Vol] 4.0 mmol/L Normal 3.7-5.3 [facility] Comment on above: Performed By: #### P TT, PT, MG, CBC, LACTIC, BMP, FIB, IOCAL ####[facility] [address]77[address] [place] [address] Lab Director: Boo Vinson MD Sodium [Moles/Vol] 147 mmol/L High 136-145 [facility] Comment on above: Performed By: #### B MP, FIB, LIVP, LACTIC, MG, PTT, PT, IOCAL, CBC ####[facility] [address] [place] [address] Lab Director: Boo Vinson MD Sodium [Moles/Vol] 144 mmol/L Normal 136-145 [facility] Comment on above: Performed By: #### B MP, MG, PTT, PT, CBC, FIB, LACTIC, IOCAL ####[facility] [address]xc[address] [place] [address] Lab Director: Boo Vinson MD Sodium [Moles/Vol] 144 mmol/L Normal 136-145 [facility] Comment on above: Performed By: #### C BC, FIB, LACTIC, PT, MG, IOCAL, LIVP, BMP, PTT ####[facility] [address] [place] [address] Lab Director: Boo Vinson MD Sodium [Moles/Vol] 143 mmol/L Normal 136-145 [facility] Comment on above: Performed By: #### P TT, PT, MG, CBC, LACTIC, BMP, FIB, IOCAL ####[facility] [address] [place] [address] 325[address] [place])[phone] Director: Boo Vinson MD Urea nitrogen [Mass/Vol] 23 mg/dL [address] Comment on above: Performed By: #### B MP, FIB, LIVP, LACTIC, MG, PTT, PT, IOCAL, CBC ####[facility] [address] [place] [address] 414[address] [place])[phone] Director: Boo Vinson MD Urea nitrogen [Mass/Vol] 22 mg/dL [address] Comment on above: Performed By: #### B MP, MG, PTT, PT, CBC, FIB, LACTIC, IOCAL ####[address] [address] [place])[phone] Director: Boo Vinson MD Urea nitrogen [Mass/Vol] 24 mg/dL [address] Comment on above: Performed By: #### C BC, FIB, LACTIC, PT, MG, IOCAL, LIVP, BMP, PTT ####[address] [address] [place])[phone] Director: Boo Vinson MD Urea nitrogen [Mass/Vol] 24 mg/dL [address] Comment on above: Performed By: #### P TT, PT, MG, CBC, LACTIC, BMP, FIB, IOCAL ####[facility] [address] [place] [address] 58[address] [place])[phone] Director: Boo Vinson MD CBC 11-07-2023 Erythrocyte distribution width (RBC) [Ratio] 15.6 % High 11.8-14.4 [facility] Comment on above: Performed By: #### B MP, MG, PTT, PT, CBC, FIB, LACTIC, IOCAL ####[facility] [address] [place] [address] Lab Director: Boo Vinson MD Erythrocyte distribution width (RBC) [Ratio] 15.7 % High 11.8-14.4 [facility] Comment on above: Performed By: #### C BC, FIB, LACTIC, PT, MG, IOCAL, LIVP, BMP, PTT ####[facility] [address] [place] [address] Lab Director: Boo Vinson MD Erythrocyte distribution width (RBC) [Ratio] 15.8 % High 11.8-14.4 [facility] Comment on above: Performed By: #### P TT, PT, MG, CBC, LACTIC, BMP, FIB, IOCAL ####[address] [address] Lab Director: Boo Vinson MD Erythrocyte distribution width (RBC) [Ratio] 16.0 % High 11.8-14.4 [facility] Comment on above: Performed By: #### P TT, LIVP, IOCAL, MG, BMP, PT, FIB, CBC, LACTIC ####[address] [address] Lab Director: Boo Vinson MD Hematocrit (Bld) [Volume fraction] 24.6 % Low 40.7-50.3 [facility] Comment on above: Performed By: #### B MP, MG, PTT, PT, CBC, FIB, LACTIC, IOCAL ####[facility] [address] [place] [address] Lab Director: Boo Vinson MD Hematocrit (Bld) [Volume fraction] 24.2 % Low 40.7-50.3 [facility] Comment on above: Performed By: #### C BC, FIB, LACTIC, PT, MG, IOCAL, LIVP, BMP, PTT ####[facility] [address] [place] [address] Lab Director: Boo Vinson MD Hematocrit (Bld) [Volume fraction] 24.4 % Low 40.7-50.3 [facility] Comment on above: Performed By: #### P TT, PT, MG, CBC, LACTIC, BMP, FIB, IOCAL ####[address] [address] Lab Director: Boo Vinson MD Hematocrit (Bld) [Volume fraction] 23.7 % Low 40.7-50.3 [facility] Comment on above: Performed By: #### P TT, LIVP, IOCAL, MG, BMP, PT, FIB, CBC, LACTIC ####[address] [address] Lab Director: Boo Vinson MD Hemoglobin (Bld) [Mass/Vol] 7.6 g/dL Low 13.0-17.0 [facility] Comment on above: Performed By: #### B MP, MG, PTT, PT, CBC, FIB, LACTIC, IOCAL ####[facility] [address] [place] [address] Lab Director: Boo Vinson MD Hemoglobin (Bld) [Mass/Vol] 7.5 g/dL Low 13.0-17.0 [facility] Comment on above: Performed By: #### C BC, FIB, LACTIC, PT, MG, IOCAL, LIVP, BMP, PTT ####[address] [address] Lab Director: Boo Vinson MD Hemoglobin (Bld) [Mass/Vol] 7.6 g/dL Low 13.0-17.0 [facility] Comment on above: Performed By: #### P TT, PT, MG, CBC, LACTIC, BMP, FIB, IOCAL ####[address] [address] Lab Director: Boo Vinson MD Hemoglobin (Bld) [Mass/Vol] 7.3 g/dL Low 13.0-17.0 [facility] Comment on above: Performed By: #### P TT, LIVP, IOCAL, MG, BMP, PT, FIB, CBC, LACTIC ####[facility] [address] [place] [address] Lab Director: Boo Vinson MD [facility] (RBC) [Entitic mass] 29.3 pg Normal 25.2-33.5 [facility] Comment on above: Performed By: #### B MP, MG, PTT, PT, CBC, FIB, LACTIC, IOCAL ####[facility] [address] [place] [address] Lab Director: Boo Vinson MD [facility] (RBC) [Entitic mass] 29.5 pg Normal 25.2-33.5 [facility] Comment on above: Performed By: #### C BC, FIB, LACTIC, PT, MG, IOCAL, LIVP, BMP, PTT ####[address] [address] Lab Director: Boo Vinson MD [facility] (RBC) [Entitic mass] 29.7 pg Normal 25.2-33.5 [facility] Comment on above: Performed By: #### P TT, PT, MG, CBC, LACTIC, BMP, FIB, IOCAL ####[address] [address] Lab Director: Boo Vinson MD [facility] (RBC) [Entitic mass] 29.8 pg Normal 25.2-33.5 [facility] Comment on above: Performed By: #### P TT, LIVP, IOCAL, MG, BMP, PT, FIB, CBC, LACTIC ####[facility] [address] [place] [address] Lab Director: Boo Vinson MD [facility] (RBC) [Mass/Vol] 30.9 g/dL Normal 28.4-34.8 [facility] Comment on above: Performed By: #### B MP, MG, PTT, PT, CBC, FIB, LACTIC, IOCAL ####[facility] [address] [place] [address] Lab Director: Boo Vinson MD [facility] (RBC) [Mass/Vol] 31.0 g/dL Normal 28.4-34.8 [facility] Comment on above: Performed By: #### C BC, FIB, LACTIC, PT, MG, IOCAL, LIVP, BMP, PTT ####[facility] [address] [place] [address] Lab Director: Boo Vinson MD [facility] (RBC) [Mass/Vol] 31.1 g/dL Normal 28.4-34.8 [facility] Comment on above: Performed By: #### P TT, PT, MG, CBC, LACTIC, BMP, FIB, IOCAL ####[address] [address] [place])[phone] Director: Boo Vinson MD [facility] (RBC) [Mass/Vol] 30.8 g/dL Normal 28.4-34.8 [facility] Comment on above: Performed By: #### P TT, LIVP, IOCAL, MG, BMP, PT, FIB, CBC, LACTIC ####[facility] [address] [place] [address] Lab Director: Boo Vinson MD MCV (RBC) [Entitic vol] 95.0 fL Normal 82.6-102.9 [facility] Comment on above: Performed By: #### B MP, MG, PTT, PT, CBC, FIB, LACTIC, IOCAL ####[facility] [address] [place] [address] Lab Director: Boo Vinson MD MCV (RBC) [Entitic vol] 95.3 fL Normal 82.6-102.9 [facility] Comment on above: Performed By: #### C BC, FIB, LACTIC, PT, MG, IOCAL, LIVP, BMP, PTT ####[facility] [address] [place] [address] Lab Director: Boo Vinson MD MCV (RBC) [Entitic vol] 95.3 fL Normal 82.6-102.9 [facility] Comment on above: Performed By: #### P TT, PT, MG, CBC, LACTIC, BMP, FIB, IOCAL ####[address] [address] Lab Director: Boo Vinson MD MCV (RBC) [Entitic vol] 96.7 fL Normal 82.6-102.9 [facility] Comment on above: Performed By: #### P TT, LIVP, IOCAL, MG, BMP, PT, FIB, CBC, LACTIC ####[facility] [address] [place] [address] Lab Director: Boo Vinson MD NRBC Automated 1.1 per 100 WBC High 0.0 [facility] Comment on above: Performed By: #### B MP, MG, PTT, PT, CBC, FIB, LACTIC, IOCAL ####[facility] [address] [place] [address] Lab Director: Boo Vinson MD NRBC Automated 0.9 per 100 WBC High 0.0 [facility] Comment on above: Performed By: #### C BC, FIB, LACTIC, PT, MG, IOCAL, LIVP, BMP, PTT ####[facility] [address] [place] [address] Lab Director: Boo Vinson MD NRBC Automated 1.1 per 100 WBC High 0.0 [facility] Comment on above: Performed By: #### P TT, PT, MG, CBC, LACTIC, BMP, FIB, IOCAL ####[facility] [address] [place] [address] Lab Director: Boo Vinson MD NRBC Automated 1.0 per 100 WBC High 0.0 [facility] Comment on above: Performed By: #### P TT, LIVP, IOCAL, MG, BMP, PT, FIB, CBC, LACTIC ####[facility] [address] [place] [address] Lab Director: Boo Vinson MD Platelet mean volume (Bld) [Entitic vol] 11.1 fL Normal 8.1-13.5 [facility] Comment on above: Performed By: #### B MP, MG, PTT, PT, CBC, FIB, LACTIC, IOCAL ####[facility] [address] [place] [address] Lab Director: Boo Vinson MD Platelet mean volume (Bld) [Entitic vol] 10.9 fL Normal 8.1-13.5 [facility] Comment on above: Performed By: #### C BC, FIB, LACTIC, PT, MG, IOCAL, LIVP, BMP, PTT ####[facility] [address] [place] [address] [place])[phone] Director: Boo Vinson MD Platelet mean volume (Bld) [Entitic vol] 11.0 fL Normal 8.1-13.5 [facility] Comment on above: Performed By: #### P TT, PT, MG, CBC, LACTIC, BMP, FIB, IOCAL ####[address] [address] Lab Director: Boo Vinson MD Platelet mean volume (Bld) [Entitic vol] 10.7 fL Normal 8.1-13.5 [facility] Comment on above: Performed By: #### P TT, LIVP, IOCAL, MG, BMP, PT, FIB, CBC, LACTIC ####[address] [address] Lab Director: Boo Vinson MD Platelets (Bld) [#/Vol] 214 10*3/uL Normal 138-453 [facility] Comment on above: Performed By: #### B MP, MG, PTT, PT, CBC, FIB, LACTIC, IOCAL ####[facility] [address] [place], [place] [phone] Director: Boo Vinson MD Platelets (Bld) [#/Vol] 219 10*3/uL Normal 138-[address] [place] [address] Comment on above: Performed By: #### C BC, FIB, LACTIC, PT, MG, IOCAL, LIVP, BMP, PTT ####[facility] Lv[address]y3972 [place] [address] Lab Director: Boo Vinson MD Platelets (Bld) [#/Vol] 217 10*3/uL Normal 138-[address] [place] [address] Comment on above: Performed By: #### P TT, PT, MG, CBC, LACTIC, BMP, FIB, IOCAL ####[address] [phone] Director: Boo Vinson MD Platelets (Bld) [#/Vol] 219 10*3/uL Normal 138-[address] [place] [address] Comment on above: Performed By: #### P TT, LIVP, IOCAL, MG, BMP, PT, FIB, CBC, LACTIC ####[facility] [address] [place] [address] Lab Director: Boo Vinson MD RBC (Bld) [#/Vol] 2.59 10*6/uL Low 4.21-5.77 [facility] Comment on above: Performed By: #### B MP, MG, PTT, PT, CBC, FIB, LACTIC, IOCAL ####[facility] [address]68 [place] [address] Lab Director: Boo Vinson MD RBC (Bld) [#/Vol] 2.54 10*6/uL Low 4.21-5.77 [facility] Comment on above: Performed By: #### C BC, FIB, LACTIC, PT, MG, IOCAL, LIVP, BMP, PTT ####[facility] [address]um[address]70 [place] [address] Lab Director: Boo Vinson MD RBC (Bld) [#/Vol] 2.56 10*6/uL Low 4.21-5.77 [facility] Comment on above: Performed By: #### P TT, PT, MG, CBC, LACTIC, BMP, FIB, IOCAL ####[place] [address] Lab Director: Boo Vinson MD RBC (Bld) [#/Vol] 2.45 10*6/uL Low 4.21-5.77 [facility] Comment on above: Performed By: #### P TT, LIVP, IOCAL, MG, BMP, PT, FIB, CBC, LACTIC ####[place], [place] [address] [place])[phone] Director: Boo Vinson MD WBC (Bld) [#/Vol] 15.0 10*3/uL High 3.5-11.3 [facility] Comment on above: Performed By: #### B MP, MG, PTT, PT, CBC, FIB, LACTIC, IOCAL ####[place], [place] [address] [place])[phone] Director: Boo Vinson MD WBC (Bld) [#/Vol] 13.9 10*3/uL High 3.5-11.3 [facility] Comment on above: Performed By: #### C BC, FIB, LACTIC, PT, MG, IOCAL, LIVP, BMP, PTT ####[facility] [address] [place] [address] Lab Director: Boo Vinson MD WBC (Bld) [#/Vol] 14.9 10*3/uL High 3.5-11.3 [facility] Comment on above: Performed By: #### P TT, PT, MG, CBC, LACTIC, BMP, FIB, IOCAL ####[facility] [address] [place] [address], [place] [address] Lab Director: Boo Vinson MD WBC (Bld) [#/Vol] 13.3 10*3/uL High 3.5-11.3 [facility] Comment on above: Performed By: #### P TT, LIVP, IOCAL, MG, BMP, PT, FIB, CBC, LACTIC ####[facility] [address] [place] [address] [place])[phone] Director: Boo Vinson MD Calcium, Ionicon 11-07-2023 Calcium [Moles/Vol] 1.17 mmol/L Normal 1.13-1.33 [facility] Comment on above: Performed By: #### B MP, MG, PTT, PT, CBC, FIB, LACTIC, IOCAL ####[facility] [address] [place] [address] 264[address] [place])[phone] Director: Boo Vinson MD Calcium [Moles/Vol] 1.15 mmol/L Normal 1.13-1.33 [facility] Comment on above: Performed By: #### C BC, FIB, LACTIC, PT, MG, IOCAL, LIVP, BMP, PTT ####[facility] [address] [place] [address] [place])[phone] Director: Boo Vinson MD Calcium [Moles/Vol] 1.17 mmol/L Normal 1.13-1.33 [facility] Comment on above: Performed By: #### P TT, PT, MG, CBC, LACTIC, BMP, FIB, IOCAL ####[facility] [address] [place], [place] [address])[phone] Director: Boo Vinson MD Calcium [Moles/Vol] 1.14 mmol/L Normal 1.13-1.33 [facility] Comment on above: Performed By: #### P TT, LIVP, IOCAL, MG, BMP, PT, FIB, CBC, LACTIC ####[facility] [address] [place] [address] [id number] lab Director: Boo Vinson MD Cholesterol,Fluidon 11-07-19 24 Cholesterol, Fluid 214 mg/dL Normal [facility] Comment on above: Result Comment: (NOT E)INTERPRETIVE INFORMATION: Cholesterol, Body FluidFor information on body fluid reference ranges and/or interpretiveguidance visit [email or web address] test was developed and its performance characteristicsdetermined by [employer]. It has not been cleared orapproved by the [place] Food and Drug Administration. This test wasperformed in a CLIA certified laboratory and is intended forclinical purposes.Performed By: [address] [place] [id number] Director: Edgardo Abdullahi MD, PhDCLIA Number: [id number] Performed By: #### A FCHOL ####[address] [address] lab Director: NELSY Asher [address] [phone] lab Director: Albert Jennings MD Cult,Bloodon 11-07-2023 Cult,Blood Specimen Description .BLOOD Special Requests L H 5ML Culture NO GROWTH 5 DAYS Report Status FINAL 11/07/2023 Normal [facility] Comment on above: Performed By: #### B C ####[address] [address] lab Director: Boo Vinson MD Fibrinogenon 11-07-2023 Fibrinogen 119 mg/dL Low 203-521 [facility] Comment on above: Performed By: #### B MP, FIB, LIVP, LACTIC, MG, PTT, PT, IOCAL, CBC ####[facility] [address] [place] [address] lab Director: Boo Vinson MD Fibrinogen 128 mg/dL Low 203-521 [facility] Comment on above: Performed By: #### B MP, MG, PTT, PT, CBC, FIB, LACTIC, IOCAL ####[facility] [address]xqu[address]ic[address] [place] [address] Lab Director: Boo Vinson MD Fibrinogen 127 mg/dL Low [address] [place] [address] Comment on above: Performed By: #### C BC, FIB, LACTIC, PT, MG, IOCAL, LIVP, BMP, PTT ####[facility] Qsmxzbadwmld2605 [place] [address] Lab Director: Boo Vinson MD Fibrinogen 139 mg/dL Low 203-[address] [place] [address] Comment on above: Performed By: #### P TT, PT, MG, CBC, LACTIC, BMP, FIB, IOCAL ####[facility] [address]jbizlb[address]13 [place] [address] lab Director: Boo Vinson MD Fibrinogen 133 mg/dL Low [address] [place] [address] Comment on above: Performed By: #### P TT, LIVP, IOCAL, MG, BMP, PT, FIB, CBC, LACTIC ####[facility] [address]rannace[address]23 [place] [address] Lab Director: Boo Vinson MD Global Hemostasis(TEG),[facility] 11-07-2023 Angle TEG 64.8 deg Normal 63.0-78.0 [facility] Angle TEG 63.5 deg Normal 63.0-78.0 [facility] Angle TEG 67.1 deg Normal 63.0-78.0 [facility] Fibrinogen, Func TEG 12.0 mm Low 15.0-32.0 [facility] Fibrinogen, Func TEG 13.4 mm Low 15.0-32.0 [facility] Fibrinogen, Func TEG 12.5 mm Low 15.0-32.0 [facility] K (Kinetics) TEG 1.6 min Normal 0.8-2.1 [facility] K (Kinetics) TEG 2.4 min High 0.8-2.1 [facility] K (Kinetics) TEG 1.8 min Normal 0.8-2.1 [facility] MA (Max Clot) TEG 57.0 mm Normal 52.0-69.0 [facility] MA (Max Clot) TEG 57.0 mm Normal 52.0-69.0 [facility] MA (Max Clot) TEG 55.5 mm Normal 52.0-69.0 [facility] MA Rapid TEG 54.7 mm Normal 52.0-70.0 [facility] MA Rapid TEG 56.5 mm Normal 52.0-70.0 [facility] MA Rapid TEG 55.1 mm Normal 52.0-70.0 [facility] Performing Location: Performed at [facility] ECMO Normal [facility] Performing Location: Performed at [facility] ECMO Normal [facility] Performing Location: Performed at [facility] ECMO Normal [facility] R TEG w/Hep 9.7 min High 4.3-8.3 [facility] R TEG w/Hep 11.8 min High 4.3-8.3 [facility] R TEG w/Hep 11.2 min High 4.3-8.3 [facility] R(Reaction Time) TEG 11.2 min High 4.6-9.1 [facility] R(Reaction Time) TEG 10.7 min High 4.6-9.1 [facility] R(Reaction Time) TEG 9.7 min High 4.6-9.1 [facility] Glucose (POC)on 11-07-2023 Glucose [Mass/Vol] 148 mg/dL High 74-100 [facility] Glucose [Mass/Vol] 143 mg/dL High 74-100 [facility] Glucose [Mass/Vol] 147 mg/dL High 74-100 [facility] Glucose [Mass/Vol] 159 mg/dL High 74-100 [facility] Glucose [Mass/Vol] 135 mg/dL High 74-100 [facility] Glucose [Mass/Vol] 121 mg/dL High 74-100 [facility] Lactic Acidon 11-07-2023 Lactic Acid,Whole Bl 1.0 mmol/L Normal 0.7-2.1 [facility] Comment on above: Performed By: #### B MP, MG, PTT, PT, CBC, FIB, LACTIC, IOCAL ####[facility] [address] [place] [address] Lab Director: Boo Vinson MD Lactic Acid,Whole Bl 1.0 mmol/L Normal 0.7-2.1 [facility] Comment on above: Performed By: #### C BC, FIB, LACTIC, PT, MG, IOCAL, LIVP, BMP, PTT ####[facility] [address]mmsghjn0908 [place] [address] Lab Director: Boo Vinson MD Lactic Acid,Whole Bl 1.1 mmol/L Normal 0.7-2.1 [facility] Comment on above: Performed By: #### P TT, PT, MG, CBC, LACTIC, BMP, FIB, IOCAL ####[facility] Lxtgxszrzrjg3581 [place] [address] Lab Director: Boo Vinson MD Lactic Acid,Whole Bl 1.1 mmol/L Normal 0.7-2.1 [facility] Comment on above: Performed By: #### P TT, LIVP, IOCAL, MG, BMP, PT, FIB, CBC, LACTIC ####[facility] Cndfyecplhlt6304 [place] [address] Lab Director: Boo Vinson MD Liver Profileon 11-07-2023 Albumin [Mass/Vol] 3.5 g/dL Normal 3.5-5.2 [facility] Comment on above: Performed By: #### B MP, FIB, LIVP, LACTIC, MG, PTT, PT, IOCAL, CBC ####[facility] Hzczdoetjwrj5551 [place] [address] Lab Director: Boo Vinson MD Albumin [Mass/Vol] 3.6 g/dL Normal 3.5-5.2 [facility] Comment on above: Performed By: #### C BC, FIB, LACTIC, PT, MG, IOCAL, LIVP, BMP, PTT ####[facility] [address] [place], [place] [phone] Director: Boo Vinson MD Albumin/Glob Ratio 2.0 Normal 1.0-2.5 [facility] Comment on above: Performed By: #### B MP, FIB, LIVP, LACTIC, MG, PTT, PT, IOCAL, CBC ####[facility] [address] [place] [address] [phone] Director: Boo Vinson MD Albumin/Glob Ratio 2.0 Normal 1.0-2.5 [facility] Comment on above: Performed By: #### C BC, FIB, LACTIC, PT, MG, IOCAL, LIVP, BMP, PTT ####[facility] Cybifbqldwnd0529 [place], [place] [phone] Director: Boo Vinson MD Alkaline Phos 81 U/L Normal 40-129 [facility] Comment on above: Performed By: #### B MP, FIB, LIVP, LACTIC, MG, PTT, PT, IOCAL, CBC ####[facility] Rxdqzergecra8026 [place] [address] Lab Director: Boo Vinson MD Alkaline Phos 86 U/L Normal 40-129 [facility] Comment on above: Performed By: #### C BC, FIB, LACTIC, PT, MG, IOCAL, LIVP, BMP, PTT ####[facility] Xlxsesfxolav4719 [place] [address] Lab Director: Boo Vinson MD ALT [Catalytic activity/Vol] 1555 U/L High 10-50 [facility] Comment on above: Performed By: #### B MP, FIB, LIVP, LACTIC, MG, PTT, PT, IOCAL, CBC ####[facility] [address] [place] [address] Lab Director: Boo Vinson MD ALT [Catalytic activity/Vol] 1401 U/L [address] Comment on above: Performed By: #### C BC, FIB, LACTIC, PT, MG, IOCAL, LIVP, BMP, PTT ####[facility] [address] [place] [address] [place])[phone] Director: Boo Vinson MD AST [Catalytic activity/Vol] 487 U/L [address] Comment on above: Performed By: #### B MP, FIB, LIVP, LACTIC, MG, PTT, PT, IOCAL, CBC ####[address] [address] [place])[phone] Director: Boo Vinson MD AST [Catalytic activity/Vol] 322 U/L [address] Comment on above: Performed By: #### C BC, FIB, LACTIC, PT, MG, IOCAL, LIVP, BMP, PTT ####[facility] [address] [place] [address] [place])[phone] Director: Boo Vinson MD Bilirubin [Mass/Vol] 0.8 mg/dL Normal 0.00-1.20 [facility] Comment on above: Performed By: #### B MP, FIB, LIVP, LACTIC, MG, PTT, PT, IOCAL, CBC ####[facility] Ezypkszvlsxl8332 [place], [place] [address] [place])[phone] Director: Boo Vinson MD Bilirubin [Mass/Vol] 0.9 mg/dL Normal 0.00-1.20 [facility] Comment on above: Performed By: #### C BC, FIB, LACTIC, PT, MG, IOCAL, LIVP, BMP, PTT ####[facility] Ozocfvqunvyt4998 [place], [place] [id number] Lab Director: Boo Vinson MD Bilirubin, Indirect 0.4 mg/dL Normal 0.0-1.0 [facility] Comment on above: Performed By: #### B MP, FIB, LIVP, LACTIC, MG, PTT, PT, IOCAL, CBC ####[facility] [address] [place] [address] Lab Director: Boo Vinson MD Bilirubin, Indirect 0.5 mg/dL Normal 0.0-1.0 [facility] Comment on above: Performed By: #### C BC, FIB, LACTIC, PT, MG, IOCAL, LIVP, BMP, PTT ####[address] [address] [place])[phone] Director: Boo Vinson MD Bilirubin.indirect [Mass/Vol] 0.4 mg/dL High 0.00-0.30 [facility] Comment on above: Performed By: #### B MP, FIB, LIVP, LACTIC, MG, PTT, PT, IOCAL, CBC ####[facility] [address] [place] [address] Lab Director: Boo Vinson MD Bilirubin.indirect [Mass/Vol] 0.4 mg/dL High 0.00-0.30 [facility] Comment on above: Performed By: #### C BC, FIB, LACTIC, PT, MG, IOCAL, LIVP, BMP, PTT ####[facility] [address] [place] [address] Lab Director: Boo Vinson MD Globulin (S) [Mass/Vol] 1.9 g/dL Normal [facility] Comment on above: Performed By: #### B MP, FIB, LIVP, LACTIC, MG, PTT, PT, IOCAL, CBC ####[address] [address] Lab Director: Boo Vinson MD Globulin (S) [Mass/Vol] 1.9 g/dL Normal [facility] Comment on above: Performed By: #### C BC, FIB, LACTIC, PT, MG, IOCAL, LIVP, BMP, PTT ####[facility] [address]8341 [place] [address] Lab Director: Boo Vinson MD Protein [Mass/Vol] 5.4 g/dL Low 6.6-8.7 [facility] Comment on above: Performed By: #### B MP, FIB, LIVP, LACTIC, MG, PTT, PT, IOCAL, CBC ####[facility] Wkdfndhbgavh2140 [place] [address] Lab Director: Boo Vinson MD Protein [Mass/Vol] 5.5 g/dL Low 6.6-8.7 [facility] Comment on above: Performed By: #### C BC, FIB, LACTIC, PT, MG, IOCAL, LIVP, BMP, PTT ####[facility] [address] [place] [address] [facility] Director: Boo iVnson MD Magnesiumon 11-07-2023 Magnesium [Mass/Vol] 2.3 mg/dL Normal 1.6-2.6 [facility] Comment on above: Performed By: #### B MP, FIB, LIVP, LACTIC, MG, PTT, PT, IOCAL, CBC ####[facility] [address] [place] [address] Lab Director: Boo Vinson MD Magnesium [Mass/Vol] 2.4 mg/dL Normal 1.6-2.6 [facility] Comment on above: Performed By: #### B MP, MG, PTT, PT, CBC, FIB, LACTIC, IOCAL ####[facility] Oldps[address]9352 [place] [address] Lab Director: Boo Vinson MD Magnesium [Mass/Vol] 2.4 mg/dL Normal 1.6-2.6 [facility] Comment on above: Performed By: #### C BC, FIB, LACTIC, PT, MG, IOCAL, LIVP, BMP, PTT ####[address] [phone] Lab Director: Boo Vinson MD Magnesium [Mass/Vol] 2.4 mg/dL Normal 1.6-2.6 [facility] Comment on above: Performed By: #### P TT, PT, MG, CBC, LACTIC, BMP, FIB, IOCAL ####[address] [address] Lab Director: Boo Vinson MD PTon 11-07-2023 INR Coag (PPP) [Relative time] 2.9 {INR} Normal [facility] Comment on above: Result Comment: Ther apeutic Range: Moderate Anticoagulant Intensity: INR = 2.0-3.0 High Anticoagulant Intensity: INR = 2.5-3.5 Performed By: #### B MP, FIB, LIVP, LACTIC, MG, PTT, PT, IOCAL, CBC ####[address] [phone] Lab Director: Boo Vinson MD INR Coag (PPP) [Relative time] 2.8 {INR} Normal [facility] Comment on above: Result Comment: Ther apeutic Range: Moderate Anticoagulant Intensity: INR = 2.0-3.0 High Anticoagulant Intensity: INR = 2.5-3.5 Performed By: #### B MP, MG, PTT, PT, CBC, FIB, LACTIC, IOCAL ####[address] [id number] Lab Director: Boo Vinson MD INR Coag (PPP) [Relative time] 2.6 {INR} Normal [facility] Comment on above: Result Comment: Ther apeutic Range: Moderate Anticoagulant Intensity: INR = 2.0-3.0 High Anticoagulant Intensity: INR = 2.5-3.5 Performed By: #### C BC, FIB, LACTIC, PT, MG, IOCAL, LIVP, BMP, PTT ####[address] [phone] Lab Director: Boo Vinson MD INR Coag (PPP) [Relative time] 2.5 {INR} Normal [facility] Comment on above: Result Comment: Ther apeutic Range: Moderate Anticoagulant Intensity: INR = 2.0-3.0 High Anticoagulant Intensity: INR = 2.5-3.5 Performed By: #### P TT, PT, MG, CBC, LACTIC, BMP, FIB, IOCAL ####[address] [phone] Lab Director: Boo Vinson MD INR Coag (PPP) [Relative time] 2.6 {INR} Normal [facility] Comment on above: Result Comment: Ther apeutic Range: Moderate Anticoagulant Intensity: INR = 2.0-3.0 High Anticoagulant Intensity: INR = 2.5-3.5 Performed By: #### P TT, LIVP, IOCAL, MG, BMP, PT, FIB, CBC, LACTIC ####[address] [phone] lab Director: Boo Vinson MD PT Coag (PPP) [Time] 29.6 s High 11.7-14.9 [facility] Comment on above: Performed By: #### B MP, FIB, LIVP, LACTIC, MG, PTT, PT, IOCAL, CBC ####[place] [address] Lab Director: Boo Vinson MD PT Coag (PPP) [Time] 28.4 s High 11.7-14.9 [facility] Comment on above: Performed By: #### B MP, MG, PTT, PT, CBC, FIB, LACTIC, IOCAL ####[address] [phone] Lab Director: Boo Vinson MD PT Coag (PPP) [Time] 27.2 s High 11.7-14.9 [facility] Comment on above: Performed By: #### C BC, FIB, LACTIC, PT, MG, IOCAL, LIVP, BMP, PTT ####[facility] Acfm[address]mb[address]icf9485 [place] [address] Lab Director: Boo Vinson MD PT Coag (PPP) [Time] 26.5 s High 11.7-14.9 [facility] Comment on above: Performed By: #### P TT, PT, MG, CBC, LACTIC, BMP, FIB, IOCAL ####[facility] Rqubs[address]6562 [place], [place] [id number] lab Director: Boo Vinson MD PT Coag (PPP) [Time] 27.2 s High 11.7-14.9 [facility] Comment on above: Performed By: #### P TT, LIVP, IOCAL, MG, BMP, PT, FIB, CBC, LACTIC ####[facility] [address]3358 [place] [address] Lab Director: Boo Vinson MD Venous Bld Gas,POCon 024 FIO2 40.0 Normal [facility] HCO3 (Bld) [Moles/Vol] 28.4 mmol/L Normal 22.0-29.0 [facility] HCO3 (Bld) [Moles/Vol] 28.6 mmol/L Normal 22.0-29.0 [facility] Mode of Delivery Pressure Control Normal [facility] O2 Device Adult Ventilator Normal [facility] Oxygen saturation in Blood 65.3 % Normal 60.0-85.0 [facility] Oxygen saturation in Blood 76.7 % Normal 60.0-85.0 [facility] pCO2, Venous 46.1 mm Hg Normal 41.0-51.0 [facility] pCO2, Venous 45.4 mm Hg Normal 41.0-51.0 [facility] pH,Venous 7.397 Normal 7.320-7.430 [facility] pH,Venous 7.407 Normal 7.320-7.430 [facility] pO2, Venous 34.4 mm Hg Normal 30.0-50.0 [facility] pO2, Venous 41.5 mm Hg Normal 30.0-50.0 [facility] Positive Base Excess (calc) 3.5 mmol/L High 0.0-3.0 [facility] Sharee 11-06-2023 ACT 186 sec High 79-149 [facility] APTTon 11-06-2023 aPTT Coag (Bld) [Time] 49.5 s High 23.0-36.5 [facility] Comment on above: Result Comment: IV H eparin Therapy Range:66.0-92.0 sec Performed By: #### P T, MG, FIB, BMP, IOCAL, PTT, CBC, LACTIC ####[facility] [address] [place], [place] [id number] [facility] Director: Boo Vinson MD aPTT Coag (Bld) [Time] 48.3 s High 23.0-36.5 [facility] Comment on above: Result Comment: IV H eparin Therapy Range:66.0-92.0 sec Performed By: #### L ACTIC, PTT, AKASH, BMP, FIB, IOCAL, MG, LIVP, PT, CBC ####[facility] [address] [place], [place] [id number] lab Director: Boo Vinson MD aPTT Coag (Bld) [Time] 46.9 s High 23.0-36.5 [facility] Comment on above: Result Comment: IV H eparin Therapy Range:66.0-92.0 sec Performed By: #### P TT ####[facility] [address] [place] [address] lab Director: Boo Vinson MD aPTT Coag (Bld) [Time] 51.0 s High 23.0-36.5 [facility] Comment on above: Result Comment: IV H eparin Therapy Range:66.0-92.0 sec Performed By: #### B MP, FIB, IOCAL, MG, PTT, PT, CBC, LACTIC ####[facility] [address] [place], [place] [id number] Lab Director: Boo Vinson MD aPTT Coag (Bld) [Time] 52.7 s High 23.0-36.5 [facility] Comment on above: Result Comment: IV H eparin Therapy Range:66.0-92.0 sec Performed By: #### P TT ####[facility] [place], [place] [id number] lab Director: Boo Vinson MD Arterial Bld Gas,POCon 11-05 Korey Test NOT APPLICABLE Normal [facility] FIO2 40.0 Normal [facility] HCO3 (Bld) [Moles/Vol] 28.1 mmol/L High 21.0-28.0 [facility] HCO3 (Bld) [Moles/Vol] 28.4 mmol/L High 21.0-28.0 [facility] HCO3 (Bld) [Moles/Vol] 27.5 mmol/L Normal 21.0-28.0 [facility] HCO3 (Bld) [Moles/Vol] 27.4 mmol/L Normal 21.0-28.0 [facility] Mode of Delivery Pressure Control Normal [facility] O2 Device Adult Ventilator Normal [facility] Oxygen saturation in Blood 98.1 % High 94.0-98.0 [facility] Oxygen saturation in Blood 95.3 % Normal 94.0-98.0 [facility] Oxygen saturation in Blood 96.2 % Normal 94.0-98.0 [facility] Oxygen saturation in Blood 97.6 % Normal 94.0-98.0 [facility] pCO2, Arterial 42.0 mm Hg Normal 35.0-48.0 [facility] pCO2, Arterial 41.3 mm Hg Normal 35.0-48.0 [facility] pCO2, Arterial 36.3 mm Hg Normal 35.0-48.0 [facility] pCO2, Arterial 38.7 mm Hg Normal 35.0-48.0 [facility] pH, Arterial 7.434 Normal 7.350-7.450 [facility] pH, Arterial 7.445 Normal 7.350-7.450 [facility] pH, Arterial 7.488 High 7.350-7.450 [facility] pH, Arterial 7.458 High 7.350-7.450 [facility] pO2, Arterial 103.1 mm Hg Normal 83.0-108.0 [facility] pO2, Arterial 74.3 mm Hg Low 83.0-108.0 [facility] pO2, Arterial 76.0 mm Hg Low 83.0-108.0 [facility] pO2, Arterial 92.9 mm Hg Normal 83.0-108.0 [facility] Positive Base Excess (calc) 3.5 mmol/L High 0.0-3.0 [facility] Positive Base Excess (calc) 4.0 mmol/L High 0.0-3.0 [facility] Positive Base Excess (calc) 3.9 mmol/L High 0.0-3.0 [facility] Positive Base Excess (calc) 3.3 mmol/L High 0.0-3.0 [facility] Site Drawn Arterial Line Normal [facility] Basic Metabolic Profon 11-05 Anion gap [Moles/Vol] 11 mmol/L Normal 9-16 [facility] Comment on above: Performed By: #### P T, MG, FIB, BMP, IOCAL, PTT, CBC, LACTIC ####[facility] [place] [address] [facility] Director: Boo Vinson MD Anion gap [Moles/Vol] 10 mmol/L Normal 9-16 [facility] Comment on above: Performed By: #### L ACTIC, PTT, AKASH, BMP, FIB, IOCAL, MG, LIVP, PT, CBC ####[facility] [address] [place] [address] Lab Director: Boo Vinson MD Anion gap [Moles/Vol] 10 mmol/L Normal 9-16 [facility] Comment on above: Performed By: #### B MP, FIB, IOCAL, MG, PTT, PT, CBC, LACTIC ####[facility] [address] [place] [address] Lab Director: Boo Vinson MD Calcium [Mass/Vol] 8.5 mg/dL Low 8.6-10.4 [facility] Comment on above: Performed By: #### P T, MG, FIB, BMP, IOCAL, PTT, CBC, LACTIC ####[address] [address] [place])[phone] Director: Boo Vinson MD Calcium [Mass/Vol] 8.7 mg/dL Normal 8.6-10.4 [facility] Comment on above: Performed By: #### L ACTIC, PTT, AKASH, BMP, FIB, IOCAL, MG, LIVP, PT, CBC ####[facility] [address] [place] [address] Lab Director: Boo Vinson MD Calcium [Mass/Vol] 8.6 mg/dL Normal 8.6-10.4 [facility] Comment on above: Performed By: #### B MP, FIB, IOCAL, MG, PTT, PT, CBC, LACTIC ####[facility] X[address]jdb[address]3640 [place] [address] Lab Director: Boo Vinson MD Chloride [Moles/Vol] 108 mmol/L High 98-107 [facility] Comment on above: Performed By: #### P T, MG, FIB, BMP, IOCAL, PTT, CBC, LACTIC ####[facility] Rec[address]uz[address]buf30[address] [place], [place] 7771808 Lab Director: Boo Vinson MD Chloride [Moles/Vol] 107 mmol/L Normal 98-107 [facility] Comment on above: Performed By: #### L ACTIC, PTT, AKASH, BMP, FIB, IOCAL, MG, LIVP, PT, CBC ####[facility] [address] [place] [address] Lab Director: Boo Vinson MD Chloride [Moles/Vol] 106 mmol/L Normal 98-107 [facility] Comment on above: Performed By: #### B MP, FIB, IOCAL, MG, PTT, PT, CBC, LACTIC ####[facility] [address] [place] [address] [place])[phone] Director: Boo Vinson MD CO2 [Moles/Vol] 27 mmol/L Normal [address] [place] [address] Comment on above: Performed By: #### P T, MG, FIB, BMP, IOCAL, PTT, CBC, LACTIC ####[facility] [address] [place] [address] [place])[phone] Director: Boo Vinson MD CO2 [Moles/Vol] 28 mmol/L Normal [address] [place] [address] Comment on above: Performed By: #### L ACTIC, PTT, AKASH, BMP, FIB, IOCAL, MG, LIVP, PT, CBC ####[facility] [address] [place] [address] Lab Director: Boo Vinson MD CO2 [Moles/Vol] 27 mmol/L Normal [address] [place] [address] Comment on above: Performed By: #### B MP, FIB, IOCAL, MG, PTT, PT, CBC, LACTIC ####[facility] [address] [place] [address] Lab Director: Boo Vinson MD Creatinine [Mass/Vol] 0.7 mg/dL Normal 0.70-1.20 [facility] Comment on above: Performed By: #### P T, MG, FIB, BMP, IOCAL, PTT, CBC, LACTIC ####[facility] [address]2695 [place] [address] Lab Director: Boo Vinson MD Creatinine [Mass/Vol] 0.7 mg/dL Normal 0.70-1.20 [facility] Comment on above: Performed By: #### L ACTIC, PTT, AKASH, BMP, FIB, IOCAL, MG, LIVP, PT, CBC ####[facility] [address] [place] [address] Lab Director: Boo Vinson MD Creatinine [Mass/Vol] 0.7 mg/dL Normal 0.70-1.20 [facility] Comment on above: Performed By: #### B MP, FIB, IOCAL, MG, PTT, PT, CBC, LACTIC ####[address] [address] [place])[phone] Director: Boo Vinson MD GFR/1.73 sq M.predicted among non-blacks MDRD (S/P/Bld) [Vol rate/Area] mL/min/{1.73_m2} Normal >60 [facility] Comment on above: Result Comment: Thes e results are not intended for use in patients <18 years of age.eGFR results are calculated without a race factor using the 2020 CKD-EPI equation.Careful clinical correlation is recommended, particularly when comparing to results calculated using previous equations.The CKD-EPI equation is less accurate in patients with extremes of muscle mass, extra-renal metabolism of creatine, excessive creatine ingestion, or following therapy that affects renal tubular secretion. Performed By: #### P T, MG, FIB, BMP, IOCAL, PTT, CBC, LACTIC ####[facility] [address] [place] [address] Lab Director: Boo Vinson MD GFR/1.73 sq M.predicted among non-blacks MDRD (S/P/Bld) [Vol rate/Area] mL/min/{1.73_m2} Normal >60 [facility] Comment on above: Result Comment: Thes e results are not intended for use in patients <18 years of age.eGFR results are calculated without a race factor using the 2021 CKD-EPI equation.Careful clinical correlation is recommended, particularly when comparing to results calculated using previous equations.The CKD-EPI equation is less accurate in patients with extremes of muscle mass, extra-renal metabolism of creatine, excessive creatine ingestion, or following therapy that affects renal tubular secretion. Performed By: #### L ACTIC, PTT, AKASH, BMP, FIB, IOCAL, MG, LIVP, PT, CBC ####[address] [address] Lab Director: Boo Vinson MD GFR/1.73 sq M.predicted among non-blacks MDRD (S/P/Bld) [Vol rate/Area] mL/min/{1.73_m2} Normal >60 [facility] Comment on above: Result Comment: Thes e results are not intended for use in patients <18 years of age.eGFR results are calculated without a race factor using the 2020 CKD-EPI equation.Careful clinical correlation is recommended, particularly when comparing to results calculated using previous equations.The CKD-EPI equation is less accurate in patients with extremes of muscle mass, extra-renal metabolism of creatine, excessive creatine ingestion, or following therapy that affects renal tubular secretion. Performed By: #### B MP, FIB, IOCAL, MG, PTT, PT, CBC, LACTIC ####[address] [address] Lab Director: Boo Vinson MD Glucose [Mass/Vol] 144 mg/dL High 74-99 [facility] Comment on above: Performed By: #### P T, MG, FIB, BMP, IOCAL, PTT, CBC, LACTIC ####[facility] [address] [place] [address] Lab Director: Boo Vinson MD Glucose [Mass/Vol] 163 mg/dL High 7499 [facility] Comment on above: Performed By: #### L ACTIC, PTT, AKASH, BMP, FIB, IOCAL, MG, LIVP, PT, CBC ####[facility] [address] [place], [place] [address] [place])[phone] Director: Boo Vinson MD Glucose [Mass/Vol] 166 mg/dL High 74-99 [facility] Comment on above: Performed By: #### B MP, FIB, IOCAL, MG, PTT, PT, CBC, LACTIC ####[facility] [address] [place], [place] [address])[phone] Director: Boo Vinson MD Potassium [Moles/Vol] 3.6 mmol/L Low 3.7-5.3 [facility] Comment on above: Performed By: #### P T, MG, FIB, BMP, IOCAL, PTT, CBC, LACTIC ####[facility] [address] [place], [place] [address] [place])[phone] Director: Boo Vinson MD Potassium [Moles/Vol] 3.5 mmol/L Low 3.7-5.3 [facility] Comment on above: Performed By: #### L ACTIC, PTT, AKASH, BMP, FIB, IOCAL, MG, LIVP, PT, CBC ####[facility] [address] [place] [address])[phone] Director: Boo Vinson MD Potassium [Moles/Vol] 3.3 mmol/L Low 3.7-5.3 [facility] Comment on above: Performed By: #### B MP, FIB, IOCAL, MG, PTT, PT, CBC, LACTIC ####[facility] [address]dxjlmpx7[address] [place], [place] [address])[phone] Director: Boo Vinson MD Sodium [Moles/Vol] 146 mmol/L High 136-145 [facility] Comment on above: Performed By: #### P T, MG, FIB, BMP, IOCAL, PTT, CBC, LACTIC ####[facility] [address] [place] [address] Lab Director: Boo Vinson MD Sodium [Moles/Vol] 145 mmol/L Normal 136-145 [facility] Comment on above: Performed By: #### L ACTIC, PTT, AKASH, BMP, FIB, IOCAL, MG, LIVP, PT, CBC ####[facility] Qzc[address] [place], [place] [address] [place])[phone] Director: Boo Vinson MD Sodium [Moles/Vol] 143 mmol/L Normal 136-145 [facility] Comment on above: Performed By: #### B MP, FIB, IOCAL, MG, PTT, PT, CBC, LACTIC ####[facility] Gticplw[address] [place], [place] [address] [place])[phone] Director: Boo Vinson MD Urea nitrogen [Mass/Vol] 21 mg/dL High [address] [place] [address] Comment on above: Performed By: #### P T, MG, FIB, BMP, IOCAL, PTT, CBC, LACTIC ####[facility] [address] [place] [address] [place])[phone] Director: Boo Vinson MD Urea nitrogen [Mass/Vol] 21 mg/dL [address] Comment on above: Performed By: #### L ACTIC, PTT, AKASH, BMP, FIB, IOCAL, MG, LIVP, PT, CBC ####[facility] [address] [place] [address] [place])[phone] Director: Boo Vinson MD Urea nitrogen [Mass/Vol] 22 mg/dL [address] Comment on above: Performed By: #### B MP, FIB, IOCAL, MG, PTT, PT, CBC, LACTIC ####[facility] Ozlmnfyhoofv[address]863 [place], [place] [address] [place])[phone] Director: Boo Vinson MD CBCon 11-06-2023 Erythrocyte distribution width (RBC) [Ratio] 15.4 % High 11.8-14.4 [facility] Comment on above: Performed By: #### P T, MG, FIB, BMP, IOCAL, PTT, CBC, LACTIC ####[facility] Zttysqcftsng1046 [place] [address] Lab Director: Boo Vinson MD Erythrocyte distribution width (RBC) [Ratio] 15.6 % High 11.8-14.4 [facility] Comment on above: Performed By: #### L ACTIC, PTT, AKASH, BMP, FIB, IOCAL, MG, LIVP, PT, CBC ####[facility] [address] [place] [address] Lab Director: Boo Vinson MD Erythrocyte distribution width (RBC) [Ratio] 15.4 % High 11.8-14.4 [facility] Comment on above: Performed By: #### B MP, FIB, IOCAL, MG, PTT, PT, CBC, LACTIC ####[address] [address] Lab Director: Boo Vinson MD Erythrocyte distribution width (RBC) [Ratio] 15.4 % High 11.8-14.4 [facility] Comment on above: Performed By: #### B MP, FIB, LIVP, LACTIC, MG, PTT, PT, IOCAL, CBC ####[address] [address] Lab Director: Boo Vinson MD Hematocrit (Bld) [Volume fraction] 23.9 % Low 40.7-50.3 [facility] Comment on above: Performed By: #### P T, MG, FIB, BMP, IOCAL, PTT, CBC, LACTIC ####[facility] [address] [place] [address] Lab Director: Boo Vinson MD Hematocrit (Bld) [Volume fraction] 24.1 % Low 40.7-50.3 [facility] Comment on above: Performed By: #### L ACTIC, PTT, AKASH, BMP, FIB, IOCAL, MG, LIVP, PT, CBC ####[facility] [address] [place] [address] [place] [address] Lab Director: Boo Vinson MD Hematocrit (Bld) [Volume fraction] 24.3 % Low 40.7-50.3 [facility] Comment on above: Performed By: #### B MP, FIB, IOCAL, MG, PTT, PT, CBC, LACTIC ####[address] [address] Lab Director: Boo Vinson MD Hematocrit (Bld) [Volume fraction] 22.8 % Low 40.7-50.3 [facility] Comment on above: Performed By: #### B MP, FIB, LIVP, LACTIC, MG, PTT, PT, IOCAL, CBC ####[address] [address] Lab Director: Boo Vinson MD Hemoglobin (Bld) [Mass/Vol] 7.4 g/dL Low 13.0-17.0 [facility] Comment on above: Performed By: #### P T, MG, FIB, BMP, IOCAL, PTT, CBC, LACTIC ####[address] [address] Lab Director: Boo Vinson MD Hemoglobin (Bld) [Mass/Vol] 7.6 g/dL Low 13.0-17.0 [facility] Comment on above: Performed By: #### L ACTIC, PTT, AKASH, BMP, FIB, IOCAL, MG, LIVP, PT, CBC ####[facility] Llwnnfefsipf8542 [place] [address] Lab Director: Boo Vinson MD Hemoglobin (Bld) [Mass/Vol] 7.6 g/dL Low 13.0-17.0 [facility] Comment on above: Performed By: #### B MP, FIB, IOCAL, MG, PTT, PT, CBC, LACTIC ####[facility] [address] [place] [address] Lab Director: Boo Vinson MD Hemoglobin (Bld) [Mass/Vol] 7.3 g/dL Low 13.0-17.0 [facility] Comment on above: Performed By: #### B MP, FIB, LIVP, LACTIC, MG, PTT, PT, IOCAL, CBC ####[address] [address] Lab Director: Boo Vinson MD [facility] (RBC) [Entitic mass] 29.6 pg Normal 25.2-33.5 [facility] Comment on above: Performed By: #### P T, MG, FIB, BMP, IOCAL, PTT, CBC, LACTIC ####[address] [address] Lab Director: Boo Vinson MD MCH (RBC) [Entitic mass] 29.6 pg Normal 25.2-33.5 [facility] Comment on above: Performed By: #### L ACTIC, PTT, AKASH, BMP, FIB, IOCAL, MG, LIVP, PT, CBC ####[facility] [address] [place] [address] Lab Director: Boo Vinson MD [facility] (RBC) [Entitic mass] 29.5 pg Normal 25.2-33.5 [facility] Comment on above: Performed By: #### B MP, FIB, IOCAL, MG, PTT, PT, CBC, LACTIC ####[facility] [address] [place] [address] Lab Director: Boo Vinson MD [facility] (RBC) [Entitic mass] 30.0 pg Normal 25.2-33.5 [facility] Comment on above: Performed By: #### B MP, FIB, LIVP, LACTIC, MG, PTT, PT, IOCAL, CBC ####[facility] [address] [place] [address] Lab Director: Boo Vinson MD MCHC (RBC) [Mass/Vol] 31.0 g/dL Normal 28.4-34.8 [facility] Comment on above: Performed By: #### P T, MG, FIB, BMP, IOCAL, PTT, CBC, LACTIC ####[address] [address] lab Director: Boo Vinson MD [facility] (RBC) [Mass/Vol] 31.5 g/dL Normal 28.4-34.8 [facility] Comment on above: Performed By: #### L ACTIC, PTT, AKASH, BMP, FIB, IOCAL, MG, LIVP, PT, CBC ####[address] [address] lab Director: Boo Vinson MD [facility] (RBC) [Mass/Vol] 31.3 g/dL Normal 28.4-34.8 [facility] Comment on above: Performed By: #### B MP, FIB, IOCAL, MG, PTT, PT, CBC, LACTIC ####[facility] [address] [place] [address] lab Director: Boo Vinson MD [facility] (RBC) [Mass/Vol] 32.0 g/dL Normal 28.4-34.8 [facility] Comment on above: Performed By: #### B MP, FIB, LIVP, LACTIC, MG, PTT, PT, IOCAL, CBC ####[facility] [address] [place] [address] Lab Director: Boo Vinson MD MCV (RBC) [Entitic vol] 95.6 fL Normal 82.6-102.9 [facility] Comment on above: Performed By: #### P T, MG, FIB, BMP, IOCAL, PTT, CBC, LACTIC ####[facility] [address]fr[address] [place], [place] [id number] Lab Director: Boo Vinson MD MCV (RBC) [Entitic vol] 93.8 fL Normal 82.6-102.9 [facility] Comment on above: Performed By: #### L ACTIC, PTT, AKASH, BMP, FIB, IOCAL, MG, LIVP, PT, CBC ####[facility] Vyuefw[address]ymxn9627 [place] [address] Lab Director: Boo Vinson MD MCV (RBC) [Entitic vol] 94.2 fL Normal 82.6-102.9 [facility] Comment on above: Performed By: #### B MP, FIB, IOCAL, MG, PTT, PT, CBC, LACTIC ####[facility] [address] [place] [address] [phone] Director: Boo Vinson MD MCV (RBC) [Entitic vol] 93.8 fL Normal 82.6-102.9 [facility] Comment on above: Performed By: #### B MP, FIB, LIVP, LACTIC, MG, PTT, PT, IOCAL, CBC ####[facility] [address] [place] [address] Lab Director: Boo Vinson MD NRBC Automated 1.5 per 100 WBC High 0.0 [facility] Comment on above: Performed By: #### L ACTIC, PTT, AKASH, BMP, FIB, IOCAL, MG, LIVP, PT, CBC ####[facility] [address] [place] [address] Lab Director: Boo Vinson MD NRBC Automated 1.7 per 100 WBC High 0.0 [facility] Comment on above: Performed By: #### B MP, FIB, IOCAL, MG, PTT, PT, CBC, LACTIC ####[facility] [address] [place] [address] Lab Director: Boo Vinson MD NRBC Automated 1.2 per 100 WBC High 0.0 [facility] Comment on above: Performed By: #### B MP, FIB, LIVP, LACTIC, MG, PTT, PT, IOCAL, CBC ####[facility] [address] [address] Lab Director: Boo Vinson MD Platelet mean volume (Bld) [Entitic vol] 10.6 fL Normal 8.1-13.5 [facility] Comment on above: Performed By: #### L ACTIC, PTT, AKASH, BMP, FIB, IOCAL, MG, LIVP, PT, CBC ####[address] [phone] Director: Boo Vinson MD Platelet mean volume (Bld) [Entitic vol] 11.2 fL Normal 8.1-13.5 [facility] Comment on above: Performed By: #### B MP, FIB, IOCAL, MG, PTT, PT, CBC, LACTIC ####[address] [address] Lab Director: Boo Vinson MD Platelet mean volume (Bld) [Entitic vol] 11.0 fL Normal 8.1-13.5 [facility] Comment on above: Performed By: #### B MP, FIB, LIVP, LACTIC, MG, PTT, PT, IOCAL, CBC ####[address] [address] Lab Director: Boo Vinson MD Platelets (Bld) [#/Vol] 194 10*3/uL Normal 138-453 [facility] Comment on above: Performed By: #### P T, MG, FIB, BMP, IOCAL, PTT, CBC, LACTIC ####[address] [phone] Director: Boo Vinson MD Platelets (Bld) [#/Vol] 202 10*3/uL Normal 138-453 [facility] Comment on above: Performed By: #### L ACTIC, PTT, AKASH, BMP, FIB, IOCAL, MG, LIVP, PT, CBC ####[address] [address] Lab Director: Boo Vinson MD Platelets (Bld) [#/Vol] 203 10*3/uL Normal 138-453 [facility] Comment on above: Performed By: #### B MP, FIB, IOCAL, MG, PTT, PT, CBC, LACTIC ####[facility] [address] [place], [place] [phone] Director: Boo Vinson MD Platelets (Bld) [#/Vol] 204 10*3/uL Normal 138-453 [facility] Comment on above: Performed By: #### B MP, FIB, LIVP, LACTIC, MG, PTT, PT, IOCAL, CBC ####[facility] Tbq[address]ax[address] [place], [place] [phone] Director: Boo Vinson MD RBC (Bld) [#/Vol] 2.50 10*6/uL Low 4.21-5.77 [facility] Comment on above: Performed By: #### P T, MG, FIB, BMP, IOCAL, PTT, CBC, LACTIC ####[facility] Xy[address]2683 [place] [address] Lab Director: Boo Vinson MD RBC (Bld) [#/Vol] 2.57 10*6/uL Low 4.21-5.77 [facility] Comment on above: Performed By: #### L ACTIC, PTT, AKASH, BMP, FIB, IOCAL, MG, LIVP, PT, CBC ####[facility] Lr[address] [place], [place] [phone] Director: Boo Vinson MD RBC (Bld) [#/Vol] 2.58 10*6/uL Low 4.21-5.77 [facility] Comment on above: Performed By: #### B MP, FIB, IOCAL, MG, PTT, PT, CBC, LACTIC ####[facility] T[address] [place], [place] [phone] Director: Boo Vinson MD RBC (Bld) [#/Vol] 2.43 10*6/uL Low 4.21-5.77 [facility] Comment on above: Performed By: #### B MP, FIB, LIVP, LACTIC, MG, PTT, PT, IOCAL, CBC ####[facility] [address] [place], [place] [address] [place])[phone] Director: Boo Vinson MD WBC (Bld) [#/Vol] 18.5 10*3/uL High 3.5-11.3 [facility] Comment on above: Performed By: #### P T, MG, FIB, BMP, IOCAL, PTT, CBC, LACTIC ####[facility] [address] [place], [place] [address] [place])[phone] Director: Boo Vinson MD WBC (Bld) [#/Vol] 16.9 10*3/uL High 3.5-11.3 [facility] Comment on above: Performed By: #### L ACTIC, PTT, AKASH, BMP, FIB, IOCAL, MG, LIVP, PT, CBC ####[facility] [address] [place], [place] [address] [place])[phone] Director: Boo Vinson MD WBC (Bld) [#/Vol] 17.2 10*3/uL High 3.5-11.3 [facility] Comment on above: Performed By: #### B MP, FIB, IOCAL, MG, PTT, PT, CBC, LACTIC ####[facility] [address] [place], [place] [address] [place])[phone] Director: Boo Vinson MD WBC (Bld) [#/Vol] 16.0 10*3/uL High 3.5-11.3 [facility] Comment on above: Performed By: #### B MP, FIB, LIVP, LACTIC, MG, PTT, PT, IOCAL, CBC ####[facility] [address] [place], [place] [address] [place])[phone] Director: Boo Vinson MD Calcium, Ionicon 11-06-2023 Calcium [Moles/Vol] 1.16 mmol/L Normal 1.13-1.33 [facility] Comment on above: Performed By: #### L ACTIC, PTT, AKASH, BMP, FIB, IOCAL, MG, LIVP, PT, CBC ####[facility] [address] [place], [place] [address] [place])[phone] Director: Boo Vinson MD Calcium [Moles/Vol] 1.13 mmol/L Normal 1.13-1.33 [facility] Comment on above: Performed By: #### B MP, FIB, IOCAL, MG, PTT, PT, CBC, LACTIC ####[facility] [address] [place], [place] [address] [place])[phone] Director: Boo Vinson MD Calcium [Moles/Vol] 1.10 mmol/L Low 1.13-1.33 [facility] Comment on above: Performed By: #### B MP, FIB, LIVP, LACTIC, MG, PTT, PT, IOCAL, CBC ####[facility] [address] [place], [place] [address] [place])[phone] Director: Boo Vinson MD Fibrinogenon 11-06-2023 Fibrinogen 117 mg/dL Low [address] [place] [address] Comment on above: Performed By: #### P T, MG, FIB, BMP, IOCAL, PTT, CBC, LACTIC ####[facility] Cbmyulklopsv[address] [place], [place] [address] [place])[phone] Director: Boo Vinson MD Fibrinogen 125 mg/dL Low [address] [place] [address] Comment on above: Performed By: #### L ACTIC, PTT, AKASH, BMP, FIB, IOCAL, MG, LIVP, PT, CBC ####[facility] [address]re[address]uq[address] [place], [place] [address] [place])[phone] Director: Boo Vinson MD Fibrinogen 127 mg/dL Low [address] Comment on above: Performed By: #### B MP, FIB, IOCAL, MG, PTT, PT, CBC, LACTIC ####[employer] [place] [address] lab Director: Boo Vinson MD Global Hemostasis(TEG),POCon 11-06-2023 Angle TEG 67.9 deg Normal 63.0-78.0 [facility] Fibrinogen, Func TEG 11.9 mm Low 15.0-32.0 [facility] K (Kinetics) TEG 1.7 min Normal 0.8-2.1 [facility] MA (Max Clot) TEG 57.5 mm Normal 52.0-69.0 [facility] MA Rapid TEG 55.4 mm Normal 52.0-70.0 [facility] R TEG w/Hep 9.9 min High 4.3-8.3 [facility] R(Reaction Time) TEG 9.8 min High 4.6-9.1 [facility] Glucose (POC)on 11-06-2023 Glucose [Mass/Vol] 134 mg/dL High 74-100 [facility] Glucose [Mass/Vol] 144 mg/dL High 74-100 [facility] Glucose [Mass/Vol] 158 mg/dL High 74-100 [facility] Glucose [Mass/Vol] 147 mg/dL High 74-100 [facility] Hgb Free, Plasmaon 4 Hgb Free, Plasma 7.2 mg/dL Normal 0.0-9.7 [facility] Comment on above: Result Comment: (NOT E)Performed By: [employer] [place] [id number] Director: Edgardo Abdullahi MD, PhDCLIA Number: [id number] Performed By: #### F IB, CBC, BMP, MG, PTT, PT, LACTIC, IOCAL ####[employer] [place], [place] [id number] lab Director: Boo Vinson MD#### AHBFR ####[facility] [address] [place] [address] Lab Director: Albert Jennings MD Lactic Acidon 11-06-2023 Lactic Acid,Whole Bl 1.2 mmol/L Normal 0.7-2.1 [facility] Comment on above: Performed By: #### L ACTIC, PTT, AKASH, BMP, FIB, IOCAL, MG, LIVP, PT, CBC ####[facility] [address]zfl[address]ps[address] [place] [address] Lab Director: Boo Vinson MD Lactic Acid,Whole Bl 1.1 mmol/L Normal 0.7-2.1 [facility] Comment on above: Performed By: #### B MP, FIB, IOCAL, MG, PTT, PT, CBC, LACTIC ####[facility] Lxfocntpjyua4399 [place] [address] Lab Director: Boo Vinson MD Lactic Acid,Whole Bl 1.3 mmol/L Normal 0.7-2.1 [facility] Comment on above: Performed By: #### B MP, FIB, LIVP, LACTIC, MG, PTT, PT, IOCAL, CBC ####[facility] [address] [place] [address] Lab Director: Boo Vinson MD Liver Profileon 11-06-2023 Albumin [Mass/Vol] 3.7 g/dL Normal 3.5-5.2 [facility] Comment on above: Performed By: #### L ACTIC, PTT, AKSAH, BMP, FIB, IOCAL, MG, LIVP, PT, CBC ####[facility] [address] [place] [address] Lab Director: Boo Vinson MD Albumin/Glob Ratio 2.0 Normal 1.0-2.5 [facility] Comment on above: Performed By: #### L ACTIC, PTT, AKASH, BMP, FIB, IOCAL, MG, LIVP, PT, CBC ####[facility] [address]ew[address]34[address] [place] [address] Lab Director: Boo Vinson MD Alkaline Phos 91 U/L Normal 40-129 [facility] Comment on above: Performed By: #### L ACTIC, PTT, AKASH, BMP, FIB, IOCAL, MG, LIVP, PT, CBC ####[facility] [address] [place] [address] [place])[phone] Director: Boo Vinson MD ALT [Catalytic activity/Vol] 1968 U/L High 10-50 [facility] Comment on above: Performed By: #### L ACTIC, PTT, AKASH, BMP, FIB, IOCAL, MG, LIVP, PT, CBC ####[address] [address] [place])[phone] Director: Boo Vinson MD AST [Catalytic activity/Vol] 740 U/L [facility] 10-50 [facility] Comment on above: Performed By: #### L ACTIC, PTT, AKASH, BMP, FIB, IOCAL, MG, LIVP, PT, CBC ####[facility] [address] [place] [address] [place])[phone] Director: Boo Vinson MD Bilirubin [Mass/Vol] 0.8 mg/dL Normal 0.00-1.20 [facility] Comment on above: Performed By: #### L ACTIC, PTT, AKASH, BMP, FIB, IOCAL, MG, LIVP, PT, CBC ####[facility] K[address]af8691 [place] [address] Lab Director: Boo Vinson MD Bilirubin, Indirect 0.4 mg/dL Normal 0.0-1.0 [facility] Comment on above: Performed By: #### L ACTIC, PTT, AKASH, BMP, FIB, IOCAL, MG, LIVP, PT, CBC ####[facility] Azvhpcnmf[address]ix9955 [place] [address] Lab Director: Boo Vinson MD Bilirubin.indirect [Mass/Vol] 0.4 mg/dL High 0.00-0.30 [facility] Comment on above: Performed By: #### L ACTIC, PTT, AKASH, BMP, FIB, IOCAL, MG, LIVP, PT, CBC ####[facility] W[address]kbtp0489 [place] [address] Lab Director: Boo Vinson MD Globulin (S) [Mass/Vol] 1.9 g/dL Normal [facility] Comment on above: Performed By: #### L ACTIC, PTT, AKASH, BMP, FIB, IOCAL, MG, LIVP, PT, CBC ####[facility] [address] [place] [address] [place])[phone] Director: Boo Vinson MD Protein [Mass/Vol] 5.6 g/dL Low 6.6-8.7 [facility] Comment on above: Performed By: #### L ACTIC, PTT, AKASH, BMP, FIB, IOCAL, MG, LIVP, PT, CBC ####[facility] [address] [place] [address] Lab Director: Boo Vinson MD Magnesiumon 11-06-2023 Magnesium [Mass/Vol] 2.3 mg/dL Normal 1.6-2.6 [facility] Comment on above: Performed By: #### P T, MG, FIB, BMP, IOCAL, PTT, CBC, LACTIC ####[facility] [address] [place], [place] [address] [place])[phone] Director: Boo Vinson MD Magnesium [Mass/Vol] 2.4 mg/dL Normal 1.6-2.6 [facility] Comment on above: Performed By: #### L ACTIC, PTT, AKASH, BMP, FIB, IOCAL, MG, LIVP, PT, CBC ####[facility] Gmrqx[address]usix6836 [place] [address] Lab Director: Boo Vinson MD Magnesium [Mass/Vol] 2.3 mg/dL Normal 1.6-2.6 [facility] Comment on above: Performed By: #### B MP, FIB, IOCAL, MG, PTT, PT, CBC, LACTIC ####[address] [address] Lab Director: Boo Vinson MD Non-Laminating Machine Feeder Cytologyon Case No: [id number] Normal [facility] Comment on above: Performed By: #### N ICE CREAM FREEZER ASSISTANT ####[address] [address] Lab Director: Boo Vinson MD PTon 11-06-2023 INR Coag (PPP) [Relative time] 2.5 {INR} [facility] Comment on above: Result Comment: Ther apeutic Range: Moderate Anticoagulant Intensity: INR = 2.0-3.0 High Anticoagulant Intensity: INR = 2.5-3.5 Performed By: #### P T, MG, FIB, BMP, IOCAL, PTT, CBC, LACTIC ####[address] [address] Lab Director: Boo Vinson MD INR Coag (PPP) [Relative time] 2.4 {INR} [facility] Comment on above: Result Comment: Ther apeutic Range: Moderate Anticoagulant Intensity: INR = 2.0-3.0 High Anticoagulant Intensity: INR = 2.5-3.5 Performed By: #### L ACTIC, PTT, AKASH, BMP, FIB, IOCAL, MG, LIVP, PT, CBC ####[address] [address] Lab Director: Boo Vinson MD INR Coag (PPP) [Relative time] 2.8 {INR} [facility] Comment on above: Result Comment: Ther apeutic Range: Moderate Anticoagulant Intensity: INR = 2.0-3.0 High Anticoagulant Intensity: INR = 2.5-3.5 Performed By: #### B MP, FIB, IOCAL, MG, PTT, PT, CBC, LACTIC ####[facility] [address]xut[address] [place] [address] Lab Director: Boo Vinson MD PT Coag (PPP) [Time] 26.5 s High 11.7-14.9 [facility] Comment on above: Performed By: #### P T, MG, FIB, BMP, IOCAL, PTT, CBC, LACTIC ####[facility] Fpezvyowvjfs8868 [place] [address] lab Director: Boo Vinson MD PT Coag (PPP) [Time] 25.5 s High 11.7-14.9 [facility] Comment on above: Performed By: #### L ACTIC, PTT, AKASH, BMP, FIB, IOCAL, MG, LIVP, PT, CBC ####[facility] [address] [place] [address] lab Director: Boo Vinson MD PT Coag (PPP) [Time] 28.3 s High 11.7-14.9 [facility] Comment on above: Performed By: #### B MP, FIB, IOCAL, MG, PTT, PT, CBC, LACTIC ####[facility] [address] [place] [address] lab Director: Boo Vinson MD Phosphorus, Inorg.on 024 Phosphorus, Inorg. 2.5 mg/dL Normal 2.5-4.5 [facility] Comment on above: Performed By: #### L ACTIC, PTT, AKASH, BMP, FIB, IOCAL, MG, LIVP, PT, CBC ####[facility] [address] [place] [address] Lab Director: Boo Vinson MD Vancomycin,Randomon 11-06-19 24 Vancomycin 9.7 ug/mL Normal [facility] Comment on above: Result Comment: High er trough serum vancomycin concentrations of 15-20 ug/mL are recommended for complicated infections such as bacteremia, endocarditis, osteomyelitis, meningitis, and hospital acquired pneumonia. Performed By: #### V NCR, AT3A ####[facility] [address]8432 [place] [address] Lab Director: Boo Vinson MD#### AHBFR ####[facility] [address] [place] [address] Lab Director: Albert Jennings MD Venous Bld Gas,POCon 024 HCO3 (Bld) [Moles/Vol] 27.6 mmol/L Normal 22.0-29.0 [facility] Oxygen saturation in Blood 70.3 % Normal 60.0-85.0 [facility] pCO2, Venous 39.8 mm Hg Low 41.0-51.0 [facility] pH,Venous 7.449 High 7.320-7.430 [facility] pO2, Venous 35.1 mm Hg Normal 30.0-50.0 [facility] Positive Base Excess (calc) 3.3 mmol/L High 0.0-3.0 [facility] XR CHEST PORTABLEon 11-06-19 24 XR CHEST PORTABLE Normal [facility] COMPREHENSIVE METABOLIC PANE [place] 09-03-2023 Albumin [Mass/Vol] 4.1 g/dL Normal 3.2-5.3 [facility] Comment on above: Performed By: #### 2 089-1, 20063-2, 18032-9, CMP #### [facility] ([id number]) [address], [address] [place] [address] ALP [Catalytic activity/Vol] 83 U/L Normal 39-130 [facility] Comment on above: Performed By: #### 2 089-1, 61405-1, 18429-6, CMP #### [facility] ([id number]) [address], [address] [place] [address] ALT [Catalytic activity/Vol] 50 U/L High 0-40 [facility] Comment on above: Performed By: #### 2 089-1, 59451-3, 99335-1, CMP #### [facility] ([id number]) [address], [address] [place] [address] Anion gap [Moles/Vol] 16 mmol/L High 5-15 [facility] Comment on above: Performed By: #### 2 089-1, 32632-4, 74022-2, CMP #### [facility] ([id number]) [address], [address] [place] [address] AST [Catalytic activity/Vol] 38 U/L Normal 0-41 [facility] Comment on above: Performed By: #### 2 089-1, 21733-0, 63469-0, CMP #### [facility] ([id number]) [address], [address] [place] [address] Bilirubin [Mass/Vol] 0.3 mg/dL Normal 0.3-1.2 [facility] Comment on above: Performed By: #### 2 089-1, 85714-1, 85571-6, CMP #### [facility] ([id number]) [address], [address] [place] [address] Calcium [Mass/Vol] 8.7 mg/dL Normal 8.5-10.5 [facility] Comment on above: Performed By: #### 2 089-1, 52245-0, 03528-4, CMP #### [facility] ([id number]) [address], [address] [place] [address] Chloride [Moles/Vol] 100 mmol/L Normal 98-109 [facility] Comment on above: Performed By: #### 2 089-1, 03229-3, 59495-0, CMP #### [facility] ([id number]) [address], [address] [place] [address] CO2 [Moles/Vol] 22 mmol/L Normal 22-32 [facility] Comment on above: Performed By: #### 2 089-1, 51632-8, 55776-0, CMP #### [facility] ([id number]) [address], [address] [place] [address] Creatinine [Mass/Vol] 1.21 mg/dL Normal 0.60-1.30 [facility] Comment on above: Result Comment: METH OD TRACEABLE TO IDMS STANDARD Performed By: #### 2 089-1, 68370-0, 27765-8, CMP #### [facility] ([id number]) [address], [facility] [address] [place] [address] GFR/1.73 sq M.predicted among non-blacks MDRD (S/P/Bld) [Vol rate/Area] 75 mL/min/{1.73_m2} Normal >59 [facility] Comment on above: Result Comment: Reported eGFR is based on the CKD-EPI 2020 equation that does not use a race coefficient. Performed By: #### 2 089-1, 56561-3, 50975-1, CMP #### [facility] ([id number]) [address], [address] [place] [address] Glucose [Mass/Vol] 110 mg/dL High 65-99 [facility] Comment on above: Performed By: #### 2 089-1, 77450-4, 12909-5, CMP #### [facility] ([id number]) [address] [address] [place] [address] Potassium [Moles/Vol] 3.9 mmol/L Normal 3.5-5.0 [facility] Comment on above: Performed By: #### 2 089-1, 21750-1, 53452-4, CMP #### [facility] ([id number]) [address], [address] [place] [address] Protein [Mass/Vol] 7.1 g/dL Normal 6.0-8.0 [facility] Comment on above: Performed By: #### 2 089-1, 02068-5, 01933-2, CMP #### [facility] ([id number]) [address], [facility] [address] [place] [address] Sodium [Moles/Vol] 138 mmol/L Normal 134-146 [facility] Comment on above: Performed By: #### 2 089-1, 99121-7, 89237-3, CMP #### [facility] ([id number]) [address] [address] Urea nitrogen [Mass/Vol] 22 mg/dL Normal 5-23 [facility] Comment on above: Performed By: #### 2 089-1, 78177-1, 38237-8, CMP #### [facility] ([id number]) [address] [address] DIRECT LDLon 09-03-2023 Cholesterol in LDL [Mass/Vol] 73 mg/dL Normal <130 [facility] Comment on above: Result Comment: LDL <100 mg/dL - Desirable LDL 130-159 mg/dL - Borderline High Risk LDL >160 mg/dL - High Risk Performed By: #### 2 089-1, 08754-6, 99495-6, CMP #### [facility] ([id number]) [address], [facility] [address] [place] [address] Lipid 1996 panelon Cholesterol [Mass/Vol] 193 mg/dL Normal 150-200 [facility] Comment on above: Performed By: #### 2 089-1, 44650-3, 73029-9, CMP #### [facility] ([id number]) [address] [address] Cholesterol in HDL [Mass/Vol] 40 mg/dL Normal >39 [facility] Comment on above: Result Comment: HDL <40 mg/dL - High Risk HDL > or = 40mg/dL- Desirable HDL >60 mg/dL - Negative Risk Performed By: #### 2 089-1, 56165-0, 13710-0, CMP #### [facility] ([id number]) [address], [address] [place] [address] Cholesterol in VLDL [Mass/Vol] 140 mg/dL High 0-30 [facility] Comment on above: Performed By: #### 2 089-1, 80527-2, 32586-3, CMP #### [facility] ([id number]) [address], [address] [place] [address] CHOLESTEROL:HDL 4.8 Normal 1.0-5.0 [facility] Comment on above: Performed By: #### 2 089-1, 13163-2, 75670-3, CMP #### [facility] ([id number]) [address], [address] [place] [address] LDL (CALC) RESULT NOT REPORTED DUE TO HIGH TRIGLYCERIDE Normal <130 [facility] Comment on above: Performed By: #### 2 089-1, 45245-9, 49189-8, CMP #### [facility] ([id number]) [address], [address] [place] [address] Triglyceride [Mass/Vol] 699 mg/dL High 27-150 [facility] Comment on above: Performed By: #### 2 089-1, 72627-5, 33862-0, CMP #### [facility] ([id number]) [address], [address] [place] [address] Vitamin D+Metabolites [Mass/ Vol]on 09-03-2023 VITAMIN D 25 HYD TOT 21.3 ng/mL Low 30-100 [facility] Comment on above: Result Comment: Vitamin D status 25 [place] Vitamin D Deficiency <20 ng/mL Insufficiency 20-29 ng/mL Sufficiency 30-100 ng/mL Toxicity >100 ng/mL NOTE: A pediatric reference range has not been established by the director of public safety of this kit. The [place] [employer] recommends a Vitamin D level of = or >20ng/mL in infants and children. Performed By: #### 2 089-1, 20590-7, 37120-7, CMP #### [facility] ([id number]) [address] [place] [address], [address] [place] [address] Cholesterol [Mass/volume] in Serum or PlasmaOrdered By: Bradford Fajardo on 06-08-2023 Cholesterol [Mass/Vol] 201 mg/dL 140-200 [facility] Comment on above: Chol less than 200 m g/dl low riskChol 201-239 mg/dl borderline riskChol 240 mg/dl and greater high risk Cholesterol in LDL Calc [Mas s/Vol]Ordered By: Bradford Fajardo on 06-08-2023 Cholesterol in LDL [Mass/Vol] 120 mg/dL 0-100 [facility] Comment on above: LDL ATP III CLASSIFI CATIONLDL less than 100 mg/dL OptimalLDL 100-129 mg/dL Near or above optimalLDL 130-159 mg/dL Borderline highLDL 160-189 mg/dL HighLDL greater than 189 mg/dL Very high Cholesterol in VLDL Calc [Ma ss/Vol]Ordered By: Bradford Fajardo on 06-08-2023 Cholesterol in VLDL [Mass/Vol] 31 mg/dL [facility] ECG 12 lead ECGon 06-08-2023 ECG 12 lead ECG [facility] Main [address] [address] Electrocardiograph Report Signed Patient: Kandice Polanco MR#: [id number] : 1980 Acct:[id number] Age/Sex: 43 / M ADM Date: 06/07/23 Loc: Room: [address] [place] [address] Type: ADM IN Attending Dr: Bradford Fajardo MD Ordering Provider: Bradford Fajardo MD Date of Service: 06/08/2303/24/500 ECG/ECG 12 lead ECG: ANTIPSYCHOTIC THERAPY Copies to: Test Reason : Blood Pressure : / mmHG Vent. Rate : 060 BPM Atrial Rate : 060 BPM P-R Int : 158 ms QRS Dur : 094 ms QT Int : 398 ms P-R-T Axes : 025 -16 027 degrees QTc Int : 398 ms Normal sinus rhythm with sinus arrhythmia Normal ECG When compared with ECG of 21-MAR-2023 07:01, No significant change was found Confirmed by [facility] ([id number] on 06/08/2023 9:56:45 AM Referred By: Electronically Signed By:MERVIN GUZMAN MD [facility] Transcribed By: MUS Signed By Eddie Guzman MD 06/08/23 0956 Normal [facility] Lipid Panelon 06-08-2023 Cholesterol [Mass/Vol] 201 mg/dL High 140-200 [facility] Comment on above: Result Comment: Chol less than 200 mg/dl low risk Chol 201-239 mg/dl borderline risk Chol 240 mg/dl and greater high risk Performed By: #### L IPID, TSH3 wRFLX, [id number] #### [facility] [address] [place] [address] [place] Cholesterol in HDL [Mass/Vol] 50 mg/dL Normal 23-92 [facility] Comment on above: Result Comment: HDL CHOL ATP-III CLASSIFICATION Cardiovascular Risk HDL > or equal to 60 mg/dL LOW HDL < 40 mg/dL HIGH Performed By: #### L IPID, TSH3 wRFLX, [id number] #### [facility] [address] [id number] [place] Cholesterol.total/Cho lesterol in HDL [Mass ratio] 4.0 {ratio} Normal <5.0 [facility] Comment on above: Performed By: #### L IPID, TSH3 wRFLX, [id number] #### [facility] [address] LDL Cholesterol,Calculate d 120 mg/dL High 0-100 [facility] Comment on above: Result Comment: LDL ATP III CLASSIFICATION LDL less than 100 mg/dL Optimal LDL 100-129 mg/dL Near or above optimal LDL 130-159 mg/dL Borderline high LDL 160-189 mg/dL High LDL greater than 189 mg/dL Very high Performed By: #### L IPID, TSH3 wRFLX, [id number] #### [facility] [address] [id number] [facility] Triglyceride w/Reflex 155 mg/dL High 0-149 [facility] Comment on above: Result Comment: TRIG ATP III CLASSIFICATION TRIG less than 150 mg/dL Normal TRIG 150-199 mg/dL Borderline high TRIG 200-500 mg/dL High TRIG greater than 500 mg/dL Very high Standard traceable to the Center for Disease Conrtrol and Prevention (CDC) test method. Performed By: #### L IPID, TSH3 wRFLX, [id number] #### [facility] [address] VLDL CHOLESTEROL 31 mg/dL Normal [facility] Comment on above: Performed By: #### L IPID, TSH3 wRFLX, [id number] #### [facility] [address] Serum or plasma high density lipoprotein (HDL) cholesterol measurementOrdered By: Bradford Fajardo on 06-08-2023 Cholesterol in HDL [Mass/Vol] 50 mg/dL 23-92 [facility] Comment on above: HDL CHOL ATP-III CLA SSIFICATION Cardiovascular RiskHDL > or equal to 60 mg/dL LOWHDL < 40 mg/dL HIGH Serum or plasma total choles terol/high density lipoprotein (HDL) cholesterol mass ratOrdered By: Bradford Fajardo on 06-08-2023 Cholesterol.total/Cho lesterol in HDL [Mass ratio] 4.0 {ratio} <5.0 [facility] Thyroid Stim Hormone w/Rflxo n 06-08-2023 Thyroid Stim Hormone w/Rflx 2.26 u[iU]/mL Normal 0.45-5.33 [facility] Comment on above: Performed By: #### L IPID, TSH3 wRFLX, [id number] #### [facility] [address] Thyrotropin [Units/volume] i n Serum or PlasmaOrdered By: Bradford Fajardo on 06-08-2023 TSH Qn 2.26 m[IU]/L 0.45-5.33 [facility] Triglyceride [Mass/volume] i n Serum or PlasmaOrdered By: Bradford Fajardo on 06-08-2023 Triglyceride [Mass/Vol] 155 mg/dL 0-149 [facility] Comment on above: TRIG ATP III CLASSIF ICATIONTRIG less than 150 mg/dL NormalTRIG 150-199 mg/dL Borderline highTRIG 200-500 mg/dL High TRIG greater than 500 mg/dL Very highStandard traceable to the Center for Disease Conrtrol and Prevention (CDC) test method. Vitamin D 25 Hydroxy Totalon 06-08-2023 Vitamin D 25 Hydroxy Total 28.8 ng/mL Low 30-100 [facility] Comment on above: Result Comment: JENNIFER MIN D STATUS 25([place])VITAMIN D RANGE (ng/mL) Deficient <20 Insufficient 20 to <30 Sufficient 30 to 100 Reference: Ferny MF,Agnes NC, Kaye SHELLEY, et al. Evaluation,treatment, and prevention of vitamin D deficiency; an Endocrine Society clinical practice guideline. JCEM. 2010; 96(7):1911-30. PERFORMED BY: [facility] [address] [place] [address] PATHOLOGIST [employer]MENT ENGINEER KAJAL DURON M.D. Performed By: #### L IPID, TSH3 wRFLX, [id number] #### [facility] [address] [id number] [facility] Vitamin D+Metabolites [Mass/ volume] in Serum or PlasmaOrdered By: Bradford Fajardo on 06-08-2023 Vitamin D+Metabolites [Mass/Vol] 28.8 ng/mL 30-100 [facility] Comment on above: VITAMIN D STATUS 25( [place])VITAMIN D RANGE (ng/mL) Deficient <20 Insufficient 20 to <30Sufficient 30 to 100Reference: Ferny MF,Agnes NC, Kaye SHELLEY, et al. Evaluation,treatment, and prevention of vitamin D deficiency; an Endocrine Society clinical practice guideline. JCEM. 2010; 96(7):1911-30. Alanine aminotransferase [En zymatic activity/volume] in Serum or PlasmaOrdered By: Guillermina Torres on 06-07-2023 ALT [Catalytic activity/Vol] 42 U/L 7-52 [facility] Albumin [Mass/volume] in Ser um or Plasma by Bromocresol green (BCG) dye binding methoOrdered By: Guillermina Torres on 06-07-2023 Albumin BCG dye [Mass/Vol] 4.4 g/dL 3.5-5.7 [facility] Alkaline phosphatase [Enzyma tic activity/volume] in Serum or PlasmaOrdered By: Guillermina Torres on 06-07-2023 ALP [Catalytic activity/Vol] 92 U/L 34-104 [facility] Amphetamine Screen Ql (U)Ord ered By: Guillermina Torres on 06-07-2023 Amphetamines Ql (U) Positive Negative [facility] Aspartate aminotransferase [ Enzymatic activity/volume] in Serum or PlasmaOrdered By: Guillermina Torres on 06-07-2023 AST [Catalytic activity/Vol] 36 U/L 13-39 [facility] Barbiturates [Presence] in U rine by Screen methodOrdered By: Guillermina Torres on 06-07-2023 Barbiturates Screen Ql (U) Negative Negative [facility] Basophils Auto (Bld) [#/Vol] Ordered By: Guillermina Torres on 06-07-2023 Basophils (Bld) [#/Vol] 0.1 10*3/uL 0.0-0.2 [facility] Basophils/100 WBC Auto (Bld) Ordered By: Guillermina Torres on 06-07-2023 Basophils/100 WBC (Bld) 1.2 % . [facility] Benzodiazepines Screen Ql (U )Ordered By: Guillermina Torres on 06-07-2023 Benzodiazepines Ql (U) Negative Negative [facility] Benzoylecgonine [Presence] i n Urine by Screen methodOrdered By: Guillermina Torres on 06-07-2023 Benzoylecgonine Screen Ql (U) Negative Negative [facility] Bilirubin Test strip Ql (U)O rdered By: Guillermina Torres on 06-07-2023 Bilirubin Ql (U) Negative Negative [facility] Bilirubin.total [Mass/volume ] in Serum or PlasmaOrdered By: Guillermina Torres on 06-07-2023 Bilirubin [Mass/Vol] 0.5 mg/dL 0.3-1.0 [facility] Calcium [Mass/volume] in Ser um or PlasmaOrdered By: Guillermina Torres on 06-07-2023 Calcium [Mass/Vol] 8.8 mg/dL 8.6-10.3 [facility] Cannabinoids [Presence] in U rine by Screen methodOrdered By: Guillermina Torres on 06-07-2023 Cannabinoids Screen Ql (U) Positive Negative [facility] Comment on above: These are unconfirme d results and should not be used for legal purposes. Drug Cut-Off Concentration: AMPH 1000 ng/mL ELISA 200 ng/mL PETE 200 ng/mL COCM 300 ng/mL OP 300 ng/mL PCP 25 ng/mL THC 20 ng/mL Carbon dioxide, total [Moles /volume] in Serum or PlasmaOrdered By: Guillermina Torres on 06-07-2023 CO2 [Moles/Vol] 26.1 mmol/L 21.0-31.0 [facility] Chloride [Moles/volume] in S patrick or PlasmaOrdered By: Guillermina Torres on 06-07-2023 Chloride [Moles/Vol] 105 mmol/L 98-107 [facility] Color Auto (U)Ordered By: Aubrey Torres on 06-07-2023 Color (U) Yellow Yellow [facility] Complete Blood Count Auto Di ffon 06-07-2023 Basophils (Bld) [#/Vol] 0.1 10*3/uL Normal 0.0-0.2 [facility] Comment on above: Result Comment: PERF ORMED BY: [facility] [address] [place] [address] PATHOLOGIST [employer] ENGINEER KAJAL DURON M.D. Performed By: #### L IPID, TSH3 wRFLX, [id number] #### [address] Basophils/100 WBC (Bld) 1.2 % Normal . [facility] Comment on above: Performed By: #### L IPID, TSH3 wRFLX, [id number] #### [address] Eosinophils (Bld) [#/Vol] 0.0 10*3/uL Normal 0.0-0.45 [facility] Comment on above: Performed By: #### L IPID, TSH3 wRFLX, [id number] #### [address] Eosinophils/100 WBC (Bld) 0.5 % Normal . [facility] Comment on above: Performed By: #### L IPID, TSH3 wRFLX, [id number] #### [address] Erythrocyte distribution width (RBC) [Ratio] 13.3 % Normal 12.0-14.8 [facility] Comment on above: Performed By: #### L IPID, TSH3 wRFLX, [id number] #### [address] Hematocrit (Bld) [Volume fraction] 45.1 % Normal 38.8-50.0 [facility] Comment on above: Performed By: #### L IPID, TSH3 wRFLX, [id number] #### [address] Hemoglobin (Bld) [Mass/Vol] 15.6 g/dL Normal 13.0-17.0 [facility] Comment on above: Performed By: #### L IPID, TSH3 wRFLX, [id number] #### [address] Lymphocytes (Bld) [#/Vol] 3.6 10*3/uL Normal 1.00-4.8 [facility] Comment on above: Performed By: #### L IPID, TSH3 wRFLX, [id number] #### [place] [address] [place] Lymphocytes/100 WBC (Bld) 42.2 % Normal . [facility] Comment on above: Performed By: #### L IPID, TSH3 wRFLX, [id number] #### [address] MCH (RBC) [Entitic mass] 32.6 pg Normal 27.5-35.2 [facility] Comment on above: Performed By: #### L IPID, TSH3 wRFLX, [id number] #### [address] MCV (RBC) [Entitic vol] 94.5 fL Normal 83.5-101 [facility] Comment on above: Performed By: #### L IPID, TSH3 wRFLX, [id number] #### [address] Mean Corpuscular HGB Conc 34.5 g/dL Normal 32.5-35.6 [facility] Comment on above: Performed By: #### L IPID, TSH3 wRFLX, [id number] #### [address] Monocytes (Bld) [#/Vol] 0.3 10*3/uL Normal 0.0-0.8 [facility] Comment on above: Performed By: #### L IPID, TSH3 wRFLX, [id number] #### [place] [address] [place] Monocytes/100 WBC (Bld) 19.75 % Normal 0.00-20.00 [facility] Comment on above: Performed By: #### L IPID, TSH3 wRFLX, [id number] #### [address] Monocytes/100 WBC (Bld) 3.6 % Normal . [facility] Comment on above: Performed By: #### L IPID, TSH3 wRFLX, [id number] #### [facility] [address] [place] [address] [place] Neutrophils (Bld) [#/Vol] 4.5 10*3/uL Normal 1.8-7.7 [facility] Comment on above: Performed By: #### L IPID, TSH3 wRFLX, [id number] #### [facility] [address] [place] [address] Neutrophils/100 WBC (Bld) 52.5 % Normal . [facility] Comment on above: Performed By: #### L IPID, TSH3 wRFLX, [id number] #### [facility] [address] [place] [address] NRBC% 0.2 /100{WBC} Normal 0-0.5 [facility] Comment on above: Performed By: #### L IPID, TSH3 wRFLX, [id number] #### [address] Platelet mean volume (Bld) [Entitic vol] 7.2 fL Normal 6.6-10.1 [facility] Comment on above: Performed By: #### L IPID, TSH3 wRFLX, [id number] #### [facility] [address] [place] [address] [place] Platelets (Bld) [#/Vol] 320 10*3/uL Normal 150-450 [facility] Comment on above: Performed By: #### L IPID, TSH3 wRFLX, [id number] #### [address] RBC (Bld) [#/Vol] 4.78 10*6/uL Normal 3.90-5.60 [facility] Comment on above: Performed By: #### L IPID, TSH3 wRFLX, [id number] #### [facility] [address] [place] [address] WBC (Bld) [#/Vol] 8.6 10*3/uL Normal 4.1-10.5 [facility] Comment on above: Performed By: #### L IPID, TSH3 wRFLX, [id number] #### [facility] [address] [place] [address] Comprehensive Metabolic Pane jordan 06-07-2023 Albumin [Mass/Vol] 4.4 g/dL Normal 3.5-5.7 [facility] Comment on above: Performed By: #### L IPID, TSH3 wRFLX, [id number] #### [address] Albumin/Globulin [Mass ratio] 1.5 {ratio} Normal [facility] Comment on above: Performed By: #### L IPID, TSH3 wRFLX, [id number] #### [address] ALP [Catalytic activity/Vol] 92 U/L Normal 34-104 [facility] Comment on above: Performed By: #### L IPID, TSH3 wRFLX, [id number] #### [address] ALT [Catalytic activity/Vol] 42 U/L Normal 7-52 [facility] Comment on above: Performed By: #### L IPID, TSH3 wRFLX, [id number] #### [address] Anion gap [Moles/Vol] 13.1 mmol/L Normal 6.0-15.0 [facility] Comment on above: Performed By: #### L IPID, TSH3 wRFLX, [id number] #### [address] AST [Catalytic activity/Vol] 36 U/L Normal 13-39 [facility] Comment on above: Performed By: #### L IPID, TSH3 wRFLX, [id number] #### [address] Bilirubin [Mass/Vol] 0.5 mg/dL Normal 0.3-1.0 [facility] Comment on above: Performed By: #### L IPID, TSH3 wRFLX, [id number] #### [facility] [address] Calcium [Mass/Vol] 8.8 mg/dL Normal 8.6-10.3 [facility] Comment on above: Performed By: #### L IPID, TSH3 wRFLX, [id number] #### [facility] [address] Chloride [Moles/Vol] 105 mmol/L Normal 98-107 [facility] Comment on above: Performed By: #### L IPID, TSH3 wRFLX, [id number] #### [facility] [address] [place] [address] CO2 [Moles/Vol] 26.1 mmol/L Normal 21.0-31.0 [facility] Comment on above: Performed By: #### L IPID, TSH3 wRFLX, [id number] #### [facility] [address] [place] [address] Creatinine [Mass/Vol] 1.14 mg/dL Normal 0.70-1.30 [facility] Comment on above: Performed By: #### L IPID, TSH3 wRFLX, [id number] #### [facility] [address] [place] [address] Creatinine Clr Calc Pharmacy 94.42 [facility] Comment on above: Result Comment: PERF ORMED BY: [place] [address] PATHOLOGIST [employer]OYMENT ENGINEER KAJAL DURON M.D. Performed By: #### L IPID, TSH3 wRFLX, [id number] #### [facility] [address] [place] [address] [place] GFR/1.73 sq M.predicted MDRD (S/P/Bld) [Vol rate/Area] mL/min/{1.73_m2} [facility] Comment on above: Performed By: #### L IPID, TSH3 wRFLX, [id number] #### [facility] [address] [place] [address] [place] Globulin (S) [Mass/Vol] 3.0 g/dL Normal [facility] Comment on above: Performed By: #### L IPID, TSH3 wRFLX, [id number] #### [facility] [address] [place] [address] Glucose [Mass/Vol] 82 mg/dL Normal 70-100 [facility] Comment on above: Result Comment: [facility] Glucose Reference Range is dependent on time and content of last meal. Glucose of more than 200 mg/dL in a nonstressed, ambulatory subject supports the diagnosis of Diabetes Mellitus. ADA recommended reference range Performed By: #### L IPID, TSH3 wRFLX, [id number] #### [facility] [address] [place] [address] Potassium [Moles/Vol] 4.2 mmol/L Normal 3.5-5.1 [facility] Comment on above: Performed By: #### L IPID, TSH3 wRFLX, [id number] #### [facility] [address] [place] [address] Protein [Mass/Vol] 7.4 g/dL Normal 6.4-8.9 [facility] Comment on above: Performed By: #### L IPID, TSH3 wRFLX, [id number] #### [facility] [address] [place] [address] [place] Sodium [Moles/Vol] 140 mmol/L Normal 136-145 [facility] Comment on above: Performed By: #### L IPID, TSH3 wRFLX, [id number] #### [facility] [address] [place] [address] [place] Urea nitrogen [Mass/Vol] 20 mg/dL Normal 7-25 [facility] Comment on above: Performed By: #### L IPID, TSH3 wRFLX, [id number] #### [facility] [address] [place] [address] [place] Creatinine [Mass/volume] in Serum or PlasmaOrdered By: Guillermina Torres on 06-07-2023 Creatinine [Mass/Vol] 1.14 mg/dL 0.70-1.30 [facility] Screen,Urineon 06-07-20 23 Amphetamine Screen,Urine Positive High Negative [facility] Comment on above: Performed By: #### L IPID, TSH3 wRFLX, [id number] #### [facility] [address] [place] [address] [place] Barbiturate Screen,Urine Negative Normal Negative [facility] Comment on above: Performed By: #### L IPID, TSH3 wRFLX, [id number] #### [facility] [address] [place] [address] [place] Benzodiazepines Screen,Urine Negative Normal Negative [facility] Comment on above: Performed By: #### L IPID, TSH3 wRFLX, [id number] #### [place] [address] [place] Cannabinoid Screen,Urine Positive High Negative [facility] Comment on above: Result Comment: Thes e are unconfirmed results and should not be used for legal purposes. Drug Cut-Off Concentration: AMPH 1000 ng/mL ELISA 200 ng/mL PETE 200 ng/mL COCM 300 ng/mL OP 300 ng/mL PCP 25 ng/mL THC 20 ng/mL PERFORMED BY: [place] [address] PATHOLOGIST [employer] ENGINEER KAJAL DURON M.D. Performed By: #### L IPID, TSH3 wRFLX, [id number] #### [facility] [address] [place] [address] [place] Cocaine Screen,Urine Negative Normal Negative [facility] Comment on above: Performed By: #### L IPID, TSH3 wRFLX, [id number] #### [facility] [address] [place] [address] [place] Opiate Screen,Urine Negative Normal Negative [facility] Comment on above: Performed By: #### L IPID, TSH3 wRFLX, [id number] #### [facility] [address] [place] [address] [place] Phencyclidine Screen,Urine Negative Normal Negative [facility] Comment on above: Performed By: #### L IPID, TSH3 wRFLX, [id number] #### [facility] [address] [place] [address] [place] Eosinophils Auto (Bld) [#/Vo l]Ordered By: Guillermina Torres on 06-07-2023 Eosinophils (Bld) [#/Vol] 0.0 10*3/uL 0.0-0.45 [facility] Eosinophils/100 WBC Auto (Bl d)Ordered By: Guillermina Torres on 06-07-2023 Eosinophils/100 WBC (Bld) 0.5 % . [facility] Erythrocyte distribution wid th Auto (RBC) [Ratio]Ordered By: Guillermina Torres on 06-07-2023 Erythrocyte distribution width (RBC) [Ratio] 13.3 % 12.0-14.8 [facility] Ethanol [Mass/volume] in Ser um or PlasmaOrdered By: Guillermina Torres on 06-07-2023 Ethanol [Mass/Vol] 310 mg/dL [facility] Ethanol [Mass/Vol] 0.310 % [facility] Ethyl Alcohol Profileon 100 Ethanol [Mass/Vol] 310 mg/dL Normal [facility] Comment on above: Performed By: #### L IPID, TSH3 wRFLX, [id number] #### [facility] [address] [place] [address] Percent Ethanol 0.310 % Normal [facility] Comment on above: Result Comment: PERF ORMED BY: [place] [address] PATHOLOGIST [employer]MENT ENGINEER KAJAL DURON M.D. Performed By: #### L IPID, TSH3 wRFLX, [id number] #### [facility] [address] [place] [address] [place] Globulin Calc (S) [Mass/Vol] Ordered By: Guillermina Torres on 06-07-2023 Globulin (S) [Mass/Vol] 3.0 g/dL [facility] Glucose [Mass/volume] in Ser um or PlasmaOrdered By: Guillermina Torres on 06-07-2023 Glucose [Mass/Vol] 82 mg/dL 70-100 [facility] Comment on above: ADA recommended refe rence rangeRandom Glucose Reference Range is dependent on time and content of last meal. Glucose of more than 200 mg/dL in a nonstressed, ambulatory subject supports the diagnosis of Diabetes Mellitus. Hematocrit Auto (Bld) [Volum e fraction]Ordered By: Guillermina Torres on 06-07-2023 Hematocrit (Bld) [Volume fraction] 45.1 % 38.8-50.0 [facility] Hemoglobin [Mass/volume] in BloodOrdered By: Guillermina Torres on 06-07-2023 Hemoglobin (Bld) [Mass/Vol] 15.6 g/dL 13.0-17.0 [facility] Ketones Auto test strip (U) [Mass/Vol]Ordered By: Guillermina Torres on 06-07-2023 Ketones (U) [Mass/Vol] Trace Negative [facility] Leukocytes [#/volume] correc gisella for nucleated erythrocytes in Blood by Automated counOrdered By: Guillermina Torres on 06-07-2023 WBC corrected for nucl RBC Auto (Bld) [#/Vol] 8.6 10*3/uL 4.1-10.5 [facility] Lymphocytes Auto (Bld) [#/Vo l]Ordered By: Guillermina Torres on 06-07-2023 Lymphocytes (Bld) [#/Vol] 3.6 10*3/uL 1.00-4.8 [facility] Lymphocytes/100 WBC Auto (Bl d)Ordered By: Guillermina Torres on 06-07-2023 Lymphocytes/100 WBC (Bld) 42.2 % . [facility] MCH Auto (RBC) [Entitic mass ]Ordered By: Guillermina Torres on 06-07-2023 MCH (RBC) [Entitic mass] 32.6 pg 27.5-35.2 [facility] MCHC Auto (RBC) [Mass/Vol]Or dered By: Guillermina Torres on 06-07-2023 MCHC (RBC) [Mass/Vol] 34.5 g/dL 32.5-35.6 [facility] MCV Auto (RBC) [Entitic vol] Ordered By: Guillermina Torres on 06-07-2023 MCV (RBC) [Entitic vol] 94.5 fL 83.5-101 [facility] Monocyte distribution width [Entitic volume] in Blood by AutomatedOrdered By: Guillermina Torres on 06-07-2023 Monocyte distribution width Auto (Bld) [Entitic vol] 19.75 % 0.00-20.00 [facility] Monocytes Auto (Bld) [#/Vol] Ordered By: Guillermina Torres on 06-07-2023 Monocytes (Bld) [#/Vol] 0.3 10*3/uL 0.0-0.8 [facility] Monocytes/100 WBC Auto (Bld) Ordered By: Guillermina Torres on 06-07-2023 Monocytes/100 WBC (Bld) 3.6 % . [facility] Neutrophils Auto (Bld) [#/Vo l]Ordered By: Guillermina Torres on 06-07-2023 Neutrophils (Bld) [#/Vol] 4.5 10*3/uL 1.8-7.7 [facility] Neutrophils/100 WBC Auto (Bl d)Ordered By: Guillermina Torres on 06-07-2023 Neutrophils/100 WBC (Bld) 52.5 % . [facility] Nitrite Test strip Ql (U)Ord ered By: Guillermina Torres on 06-07-2023 Nitrite Ql (U) Negative Negative [facility] No Panel InformationOrdered By: Guillermina Torres on 06-07-2023 Estimated GFR (CKD-EPI) > 60.0 mL/Min [facility] Creatinine Clearance (Chem 94.42 [facility] Nucleated erythrocytes [Pres ence] in Blood by Automated countOrdered By: Guillermina Torres on 06-07-2023 Nucleated RBC Auto Ql (Bld) 0.2 /100{WBC} 0-0.5 [facility] Opiates [Presence] in Urine by Screen methodOrdered By: Guillermina Torres on 06-07-2023 Opiates Screen Ql (U) Negative Negative [facility] Phencyclidine Screen Ql (U)O rdered By: Guillermina Torres on 06-07-2023 Phencyclidine Ql (U) Negative Negative [facility] Platelet mean volume Auto (B ld) [Entitic vol]Ordered By: Guillermina Torres on 06-07-2023 Platelet mean volume (Bld) [Entitic vol] 7.2 fL 6.6-10.1 [facility] Platelets Auto (Bld) [#/Vol] Ordered By: Guillermina Torres on 06-07-2023 Platelets (Bld) [#/Vol] 320 10*3/uL 150-450 [facility] Potassium [Moles/volume] in Serum or PlasmaOrdered By: Guillermina Torres on 06-07-2023 Potassium [Moles/Vol] 4.2 mmol/L 3.5-5.1 [facility] Protein Auto test strip (U) [Mass/Vol]Ordered By: Guillermina Torres on 06-07-2023 Protein (U) [Mass/Vol] Negative Negative [facility] Protein [Mass/volume] in Ser um or PlasmaOrdered By: Guillermina Torres on 06-07-2023 Protein [Mass/Vol] 7.4 g/dL 6.4-8.9 [facility] RBC Auto (Bld) [#/Vol]Ordere d By: Guillermina Torres on 06-07-2023 RBC (Bld) [#/Vol] 4.78 10*6/uL 3.90-5.60 [facility] Serum or plasma albumin/glob ulin mass ratioOrdered By: Guillermina Torres on 06-07-2023 Albumin/Globulin [Mass ratio] 1.5 {ratio} [facility] Serum or plasma anion gap de terminationOrdered By: Guillermina Torres on 06-07-2023 Anion gap [Moles/Vol] 13.1 mmol/L 6.0-15.0 [facility] Sodium [Moles/volume] in Ser um or PlasmaOrdered By: Guillermina Torres on 06-07-2023 Sodium [Moles/Vol] 140 mmol/L 136-145 [facility] Specific gravity Auto test s trip (U) [Rel density]Ordered By: Guillermina Torres on 06-07-2023 Specific gravity (U) [Rel density] 1.020 1.001-1.030 [facility] Urea nitrogen [Mass/volume] in Serum or PlasmaOrdered By: Guillermina Torres on 06-07-2023 Urea nitrogen [Mass/Vol] 20 mg/dL 7-25 [facility] Urinalysison 06-07-2023 Appearance (U) Clear Normal Clear [facility] Comment on above: Order Comment: Name Collection Type:: Clean-Voided Midstream Performed By: #### L IPID, TSH3 wRFLX, [id number] #### [facility] [address] [place] [address] [place] Bilirubin,Urine Negative Normal Negative [facility] Comment on above: Order Comment: Name Collection Type:: Clean-Voided Midstream Performed By: #### L IPID, TSH3 wRFLX, [id number] #### [facility] [address] [place] [address] [place] Color (U) Yellow Normal Yellow [facility] Comment on above: Order Comment: Name Collection Type:: Clean-Voided Midstream Performed By: #### L IPID, TSH3 wRFLX, [id number] #### [facility] [address] [place] [address] [place] Glucose Ql (U) Normal Normal Normal [facility] Comment on above: Order Comment: Name Collection Type:: Clean-Voided Midstream Performed By: #### L IPID, TSH3 wRFLX, [id number] #### [facility] [address] [place] [address] [place] Ketones Ql (U) Trace High Negative [facility] Comment on above: Order Comment: Name Collection Type:: Clean-Voided Midstream Performed By: #### L IPID, TSH3 wRFLX, [id number] #### [facility] [address] [place] [address] [place] Leukocyte esterase Test strip Ql (U) Negative Normal Negative [facility] Comment on above: Order Comment: Name Collection Type:: Clean-Voided Midstream Performed By: #### L IPID, TSH3 wRFLX, [id number] #### [facility] [address] [place] [address] [place] Nitrite,Urine Negative Normal Negative [facility] Comment on above: Order Comment: Name Collection Type:: Clean-Voided Midstream Performed By: #### L IPID, TSH3 wRFLX, [id number] #### [facility] [address] [place] [address] Occult Blood,Urine Negative Normal Negative [facility] Comment on above: Order Comment: Name Collection Type:: Clean-Voided Midstream Result Comment: PERF ORMED BY: [place] [address] PATHOLOGIST [employer]OYMENT ENGINEER KAJAL DURON M.D. Performed By: #### L IPID, TSH3 wRFLX, [id number] #### [address] pH (U) 5.5 [pH] Normal 5.0-9.0 [facility] Comment on above: Order Comment: Name Collection Type:: Clean-Voided Midstream Performed By: #### L IPID, TSH3 wRFLX, [id number] #### [address] Protein,Urine Negative Normal Negative [facility] Comment on above: Order Comment: Name Collection Type:: Clean-Voided Midstream Performed By: #### L IPID, TSH3 wRFLX, [id number] #### [address] Specificy [place],Urine 1.020 Normal 1.001-1.030 [facility] Comment on above: Order Comment: Name Collection Type:: Clean-Voided Midstream Performed By: #### L IPID, TSH3 wRFLX, [id number] #### [facility] [address] [place] [address] [place] Urobilinogen,Urine Normal Normal Normal [facility] Comment on above: Order Comment: Name Collection Type:: Clean-Voided Midstream Performed By: #### L IPID, TSH3 wRFLX, [id number] #### [facility] [address] [place] [address] [place] Urine clarity by refractomet ry automatedOrdered By: Guillermina Torres on 06-07-2023 Clarity Refractometry automated (U) Clear Clear [facility] Urine glucose measurement by automated test strip (mass/volume)Ordered By: Guillermina Torres on 06-07-2023 Glucose Auto test strip (U) [Mass/Vol] Normal mg/dL Normal [facility] Urine hemoglobin detection b y automated test stripOrdered By: Guillermina Torres on 06-07-2023 Hemoglobin Auto test strip Ql (U) Negative Negative [facility] Urine leukocyte esterase det ection by automated test stripOrdered By: Guillermina Torres on 06-07-2023 Leukocyte esterase Auto test strip Ql (U) Negative Negative [facility] Urobilinogen Auto test strip (U) [Mass/Vol]Ordered By: Guillermina Torres on 06-07-2023 Urobilinogen (U) [Mass/Vol] Normal mg/dL Normal [facility] WBC Auto (Bld) [#/Vol]Ordere d By: Guillermina Torres on 06-07-2023 WBC (Bld) [#/Vol] 8.6 10*3/uL 4.1-10.5 [facility] pH Auto test strip (U)Ordere d By: Guillermina Torres on 06-07-2023 pH (U) 5.5 [pH] 5.0-9.0 [facility] CBC W Differential panel, nj thod unspecified (Bld)on 05-02-2023 Basophils (Bld) [#/Vol] 0.04 10*3/uL [facility] Basophils/100 WBC (Bld) 0.70 % 0 - 1 % [facility] Differential cell count method Nom (Bld) AUTO DIFF [facility] Eosinophils (Bld) [#/Vol] 0.09 10*3/uL [facility] Eosinophils/100 WBC (Bld) 1.50 % 0 - 3 % [facility] Erythrocyte distribution width (RBC) [Entitic vol] 45.4 fL [facility] Erythrocyte distribution width (RBC) [Ratio] 13.0 % 11.7 - 15.0 % [facility] Hematocrit (Bld) [Volume fraction] 42.5 % 41 - 50 % [facility] Hemoglobin (Bld) [Mass/Vol] 14.9 g/dL [facility] Immature granulocytes (Bld) [#/Vol] 0.01 10*3/uL [facility] Lymphocytes (Bld) [#/Vol] 1.76 10*3/uL [facility] Lymphocytes/100 WBC (Bld) 30.10 % 20 - 40 % [facility] MCH (RBC) [Entitic mass] 33.3 pg 26 - 34 PG [facility] MCHC (RBC) [Mass/Vol] 35.1 % 31 - 37 % [facility] MCV (RBC) [Entitic vol] 95.1 fL [facility] Monocytes (Bld) [#/Vol] 0.61 10*3/uL [facility] Monocytes/100 WBC (Bld) 10.40 % High 0 - 8 % [facility] Neutrophils (Bld) [#/Vol] 3.33 10*3/uL K/UL [facility] Comment on above: Performed at [facility] [address] [facility] [address] Neutrophils.immature/ 100 WBC (Bld) 0.20 % 0.0 - 1.0 % [facility] Nucleated RBC/100 WBC (Bld) [Ratio] 0 % 0 /100 WBC [facility] Platelet mean volume (Bld) [Entitic vol] 10.0 fL [facility] Platelets (Bld) [#/Vol] 217 10*3/uL [facility] RBC (Bld) [#/Vol] 4.47 10*6/uL [facility] Segmented neutrophils/100 WBC (Bld) 57.10 % 50 - 70 % [facility] WBC (Bld) [#/Vol] 5.8 10*3/uL [facility] Comprehensive metabolic 2000 panelon 05-02-2023 Albumin [Mass/Vol] 3.4 g/dL [place] Albumin/Globulin [Mass ratio] 1.4 {ratio} Low [facility] ALP (Bld) [Catalytic activity/Vol] 96 U/L 35 - 125 U/L [facility] ALT [Catalytic activity/Vol] 39 U/L 5 - 40 U/L [facility] Anion gap [Moles/Vol] 12 mmol/L [facility] AST [Catalytic activity/Vol] 38 U/L 5 - 40 U/L [facility] Bilirubin [Mass/Vol] 0.6 mg/dL [facility] Calcium [Mass/Vol] 8.7 mg/dL [facility] Chloride [Moles/Vol] 104 mmol/L [facility] CO2 [Moles/Vol] 24 mmol/L [facility] Creatinine [Mass/Vol] 1.0 mg/dL [facility] GFR/1.73 sq M.predicted MDRD (S/P/Bld) [Vol rate/Area] 95 mL/min/{1.73_m2} mL/min/1.73 m2 [facility] Comment on above: CALCULATIONS OF ISABEL MATED GFR ARE PERFORMED USING THE 2020 CKD-EPI STUDY REFIT EQUATION WITHOUT THE RACE VARIABLE FOR THE IDMS-TRACEABLE CREATININE METHODS. https://jasn.asnjournals.org/content/early/ASN.658851 1436 Performed at [address] [address] Globulin (S) [Mass/Vol] 2.5 g/dL [facility] Glucose [Mass/Vol] 99 mg/dL [facility] Potassium [Moles/Vol] 4.1 mmol/L [facility] Protein [Mass/Vol] 5.9 g/dL [facility] Sodium [Moles/Vol] 140 mmol/L [facility] Urea nitrogen [Mass/Vol] 14 mg/dL [facility] Urea nitrogen/Creatinine [Mass ratio] 14.0 mg/mg [facility] Laboratory - Chemistry and C hemistry - challengeon 05-02-2023 Albumin [Mass/Vol] Albumin 3.4 GM/DL L (3.5-5.0 GM/DL) Low 3.5 - 5.0 GM/DL [facility] [place] Albumin/Globulin [Mass ratio] Albumin Globulin Ratio 1.4 RATIO L (1.5-3.0 RATIO) Low 1.5 - 3.0 RATIO [facility] [place] ALP (Bld) [Catalytic activity/Vol] Alk Phosphatase 96 U/L (35-125 U/L) 35 - 125 U/L [facility] [place] ALT [Catalytic activity/Vol] ALT 39 U/L (5-40 U/L) 5 - 40 U/L [facility] [place] Anion gap [Moles/Vol] Anion Gap 12 MMOL/ L (0-19 MMOL/L) 0 - 19 MMOL/L [facility] [place] AST [Catalytic activity/Vol] AST 38 U/L (5-40 U/L) 5 - 40 U/L [facility] [place] Bilirubin [Mass/Vol] Total Bilirubin 0.6 MG/DL (0.1-1.2 MG/DL) 0.1 - 1.2 MG/DL [facility] [place] Calcium [Mass/Vol] Calcium 8.7 MG/DL (8.5-10.4 MG/DL) 8.5 - 10.4 MG/DL [facility] [place] Chloride [Moles/Vol] Chloride 104 MMOL/L (97-107 MMOL/L) 97 - 107 MMOL/L [facility] [place] CO2 [Moles/Vol] Carbon Dioxide 24 MM OL/L (24-31 MMOL/L) 24 - 31 MMOL/L [facility] [place] Creatinine [Mass/Vol] Creatinine R 1.0 M G/DL (0.4-1.6 MG/DL) 0.4 - 1.6 MG/DL [facility] [place] GFR/1.73 sq M.predicted MDRD (S/P/Bld) [Vol rate/Area] EGFR 95 mL/min/1.73 m2 (Reference Range: not available) CALCULATIONS OF ESTIMATED GFR ARE PERFORMED USING THE 2020 CKD-EPI STUDY REFIT EQUATION WITHOUT THE RACE VARIABLE FOR THE IDMS-TRACEABLE CREATININE METHODS. https://jasn.asnjournals .org/content/05/24/ASN.0346878578 Performed at [address] [address] [facility] [place] Globulin (S) [Mass/Vol] Globulin 2.5 G/DL (1.9-3.7 G/DL) 1.9 - 3.7 G/DL [facility] [place] Glucose [Mass/Vol] Glucose 99 MG/DL (65 -99 MG/DL) 65 - 99 MG/DL [facility] [place] Potassium [Moles/Vol] Potassium R 4.1 MM OL/L (3.4-5.1 MMOL/L) 3.4 - 5.1 MMOL/L [facility] [place] Protein [Mass/Vol] Total Protein 5.9 G/ DL (5.9-7.9 G/DL) 5.9 - 7.9 G/DL [facility] [place] Sodium [Moles/Vol] Sodium 140 MMOL/L (133-145 MMOL/L) 133 - 145 MMOL/L [facility] Urea nitrogen [Mass/Vol] BUN 14 MG/DL (8-25 MG/DL) 8 - 25 MG/DL [facility] Urea nitrogen/Creatinine [Mass ratio] BUN Creatinine Ratio 14.0 RATIO (8-21 RATIO) 8 - 21 RATIO [facility] Laboratory - Hematology and Cell countson 05-02-2023 Basophils (Bld) [#/Vol] Abs Baso 0.04 K/UL (0.00-0.22 K/UL) 0.00 - 0.22 K/UL [facility] Basophils/100 WBC (Bld) Basophil 0.70 % (0-1 %) 0 - 1 % [facility] Differential cell count method Nom (Bld) Diff Type AUTO DIFF (Reference Range: not available) [facility] Eosinophils (Bld) [#/Vol] Abs Eos 0.09 K/UL (0-0.45 K/UL) 0 - 0.45 K/UL [facility] Eosinophils/100 WBC (Bld) Eosinophil 1.50 % (0-3 %) 0 - 3 % [facility] Erythrocyte distribution width (RBC) [Entitic vol] RDW SD 45.4 FL (37.0-54.0 FL) 37.0 - 54.0 FL [facility] Erythrocyte distribution width (RBC) [Ratio] RDW CV 13.0 % (11.7-15.0 %) 11.7 - 15.0 % [facility] Hematocrit (Bld) [Volume fraction] HCT 42.5 % (41-50 %) 41 - 50 % [facility] Hemoglobin (Bld) [Mass/Vol] HGB 14.9 GM/DL (13.5-16.5 GM/DL) 13.5 - 16.5 GM/DL [facility] Immature granulocytes (Bld) [#/Vol] Abs Imm Neut 0.01 K/UL (0.0-0.1 K/UL) 0.0 - 0.1 K/UL [facility] [place] Lymphocytes (Bld) [#/Vol] Abs Lymph 1.76 K/UL (1.2-3.2 K/UL) 1.2 - 3.2 K/UL [facility] [place] Lymphocytes/100 WBC (Bld) Lymphocyte 30.10 % (20-40 %) 20 - 40 % [facility] [place] MCH (RBC) [Entitic mass] MCH 33.3 PG (26-34 PG) 26 - 34 PG [facility] [place] MCHC (RBC) [Mass/Vol] MCHC 35.1 % (31-37 %) 31 - 37 % [facility] [place] MCV (RBC) [Entitic vol] MCV 95.1 FL (80-100 FL) 80 - 100 FL [facility] [place] Monocytes (Bld) [#/Vol] Abs [place] 0.61 K/UL (0-0.8 K/UL) 0 - 0.8 K/UL [facility] [place] Monocytes/100 WBC (Bld) Monocyte 10.40 % H (0-8 %) High 0 - 8 % [facility] [place] Neutrophils (Bld) [#/Vol] Abs.Neut.Calculated 3.33 K/UL (Reference Range: not available) Performed at [address] [address] [facility] [place] Neutrophils (Bld) [#/Vol] Abs Neut 3.33 K/UL (1.8-7.7 K/UL) 1.8 - 7.7 K/UL [facility] [place] Neutrophils.immature/ 100 WBC (Bld) Immature Neut % 0.20 % (0.0-1.0 %) 0.0 - 1.0 % [facility] [place] Nucleated RBC/100 WBC (Bld) [Ratio] NRBCs 0 /100 WBC (0 /100 WBC) [facility] [place] Platelet mean volume (Bld) [Entitic vol] MPV 10.0 CU (7.0-12.6 CU) 7.0 - 12.6 CU [facility] [place] Platelets (Bld) [#/Vol] PLT 217 K/UL (150-450 K/UL) 150 - 450 K/UL [facility] [place] RBC (Bld) [#/Vol] RBC 4.47 M/UL L (4.5 -5.5 M/UL) Low 4.5 - 5.5 M/UL [facility] [place] Segmented neutrophils/100 WBC (Bld) Granulocyte 57.10 % (50-70 %) 50 - 70 % [facility] [place] WBC (Bld) [#/Vol] WBC 5.8 K/UL (4.5-11 .0 K/UL) 4.5 - 11.0 K/UL [facility] [place] No Panel Informationon 05-02 Interpretation and review of laboratory results Abnormal [facility] Acetaminophenon 05-01-2023 Acetaminophen [Mass/Vol] 5.0 ug/mL [facility] Comment on above: LESS THAN Performed at [place] [address] [facility] [address] Alcoholon 05-01-2023 Ethanol [Mass/Vol] 0.085 mg/dL High [facility] Comment on above: Performed at [place] [address] [facility] [address] Basic metabolic 2000 panelon 05-01-2023 Anion gap [Moles/Vol] 20 mmol/L High [facility] Calcium [Mass/Vol] 9.6 mg/dL [facility] Chloride [Moles/Vol] 96 mmol/L [facility] Comment on above: RESULT CHECKED CO2 [Moles/Vol] 20 mmol/L [facility] Comment on above: RESULT CHECKED Creatinine [Mass/Vol] 1.7 mg/dL [facility] GFR/1.73 sq M.predicted MDRD (S/P/Bld) [Vol rate/Area] 50 mL/min/{1.73_m2} mL/min/1.73 m2 [facility] Comment on above: CALCULATIONS OF ISABEL MATED GFR ARE PERFORMED USING THE 2020 CKD-EPI STUDY REFIT EQUATION WITHOUT THE RACE VARIABLE FOR THE IDMS-TRACEABLE CREATININE METHODS. https://jasn.asnjournals.org/content/early/ASN.075855 5952 Performed at [place] [address] [facility] [address] Glucose [Mass/Vol] 100 mg/dL High [facility] Potassium [Moles/Vol] SAMPLE HEMOLYZED T O BE RECOLLECTED [facility] Sodium [Moles/Vol] 136 mmol/L [facility] Comment on above: RESULT CHECKED Urea nitrogen [Mass/Vol] 20 mg/dL [facility] Urea nitrogen/Creatinine [Mass ratio] 11.8 mg/mg [facility] CBC W Differential panel, nj thod unspecified (Bld)on 05-01-2023 Basophils (Bld) [#/Vol] 0.05 10*3/uL [facility] Basophils/100 WBC (Bld) 0.70 % 0 - 1 % [facility] Differential cell count method Nom (Bld) AUTO DIFF [facility] [facility] Eosinophils (Bld) [#/Vol] 0.05 10*3/uL [facility] Eosinophils/100 WBC (Bld) 0.70 % 0 - 3 % [facility] Erythrocyte distribution width (RBC) [Entitic vol] 44.3 fL [facility] Erythrocyte distribution width (RBC) [Ratio] 13.0 % 11.7 - 15.0 % [facility] Hematocrit (Bld) [Volume fraction] 44.1 % 41 - 50 % [facility] Hemoglobin (Bld) [Mass/Vol] 16.0 g/dL [facility] Immature granulocytes (Bld) [#/Vol] 0.00 10*3/uL [facility] Lymphocytes (Bld) [#/Vol] 2.22 10*3/uL [facility] Lymphocytes/100 WBC (Bld) 31.30 % 20 - 40 % [facility] MCH (RBC) [Entitic mass] 33.6 pg 26 - 34 PG [facility] MCHC (RBC) [Mass/Vol] 36.3 % 31 - 37 % [facility] (RBC) [Entitic vol] 92.6 fL [facility] Monocytes (Bld) [#/Vol] 0.66 10*3/uL [facility] Monocytes/100 WBC (Bld) 9.30 % High 0 - 8 % [facility] Neutrophils (Bld) [#/Vol] 4.12 10*3/uL K/UL [facility] Comment on above: Performed at [address] [place] [address] Neutrophils.immature/ 100 WBC (Bld) 0.00 % 0.0 - 1.0 % [facility] Nucleated RBC/100 WBC (Bld) [Ratio] 0 % 0 /100 WBC [facility] Platelet mean volume (Bld) [Entitic vol] 9.5 fL [facility] Platelets (Bld) [#/Vol] 262 10*3/uL [facility] RBC (Bld) [#/Vol] 4.76 10*6/uL [facility] Segmented neutrophils/100 WBC (Bld) 58.00 % 50 - 70 % [facility] WBC (Bld) [#/Vol] 7.1 10*3/uL [facility] CT Cervical spine WO contras ton 05-01-2023 Helga Meek MD - 05/15/2023 PROCEDURE: SPINE CERVICAL WO CONTRAST - WCT 3025 REASON FOR EXAM: falls; etoh RESULT: Patient Name: KANDICE POLANCO STUDY: SPINE CERVICAL WO CONTRAST; 05/01/2023 6:06 pm INDICATION: falls; etoh; COMPARISON: None available. ACCESSION NUMBER(S): [id number] ORDERING CLINICIAN: TOMASA TINAJERO TECHNIQUE: EXAMINATION: Spiral, high resolution axial images were obtained from the skull base to the cervicothoracic junction with sagittal and coronal planar reconstructions. FINDINGS: CERVICAL RESULT: Counting reference: Craniocervical junction. Alignment: Alignment is anatomic. Craniocervical junction: Craniocervical junction is normal. Bone marrow / fracture: No evidence of a lytic or blastic process in the visualized spine. No evidence of acute or chronic fracture. Cervical soft tissues: The paraspinal soft tissues planes are maintained. C2-C3: Canal and foramina are patent. C3-C4: Disc osteophyte complex and facet hypertrophy is noted. There is mild bony encroachment on the canal. Neural foramina appear patent C4-C5: Disc osteophyte complex is noted. There is mild bony encroachment on the right neural foramen C5-C6: Canal and foramina are patent. C6-C7: Canal and foramina are patent. C7-T1: Canal and foramina are patent. IMPRESSION: DEGENERATIVE CHANGES DISCUSSED ABOVE. NO EVIDENCE OF ACUTE CERVICAL SPINE FRACTURE. Dictation workstation: [id number] This exam is available in DICOM format to non-affiliated healthcare facilities on a secure media free searchable basis with prior patient authorization. The patient exposure is reported to a radiation dose index registry. All CT examinations are performed with one or more of the following dose reduction techniques: Automated Exposure Control, Adjustment of mA and/or KV according to patient size, or use of iterative reconstruction techniques. Original Interpreting Physician: HELGA MEEK MD Original Transcribed by/Date: MMODAL May 01 2023 3:07P Original Electronically Signed by/Date: HELGA MEEK MD May 01 2023 6:28P Addendum Interpreting Physician: Addendum Transcribed by/Date: NO ADDENDUM Addendum Electronically Signed by/Date: [facility] Work Phone: CT Head WO contraston 2022 Helga Meek MD - 05/15/2023 PROCEDURE: BRAIN WO CONTRAST - WCT 3000 REASON FOR EXAM: falls; etoh RESULT: Patient Name: KANDICE POLANCO STUDY: BRAIN WO CONTRAST; 05/01/2023 6:06 pm INDICATION: falls; etoh. COMPARISON: No comparison exams available. ACCESSION NUMBER(S): [id number] ORDERING CLINICIAN: TOMASA TINAJERO TECHNIQUE: CT axial images through the Brain were obtained without contrast. FINDINGS: Acute ischemic change: None. Hemorrhage: No evidence of acute intracranial hemorrhage. Mass Effect / Mass Lesion: No significant mass effect. There is no evidence of an intracranial mass or extraaxial fluid collection. Chronic ischemic change: None. Parenchyma: There is no significant volume loss. The brain parenchyma is otherwise within normal limits for age. Ventricles: Normal caliber and morphology. Other: Mild mucosal thickening is noted of the bilateral maxillary sinuses IMPRESSION: No acute intracranial process. Paranasal sinus disease. Dictation workstation: [id number] This exam is available in DICOM format to non-affiliated healthcare facilities on a secure media free searchable basis with prior patient authorization. The patient exposure is reported to a radiation dose index registry. All CT examinations are performed with one or more of the following dose reduction techniques: Automated Exposure Control, Adjustment of mA and/or KV according to patient size, or use of iterative reconstruction techniques. Original Interpreting Physician: HELGA MEEK MD Original Transcribed by/Date: MMJURGEN May 01 2023 3:07P Original Electronically Signed by/Date: HELGA MEEK MD May 01 2023 6:30P Addendum Interpreting Physician: Addendum Transcribed by/Date: NO ADDENDUM Addendum Electronically Signed by/Date: [facility] Work Phone: DRUG SCREEN,URINEon 05-01-20 23 Amphetamines Screen method >1000 ng/mL Ql (U) POSITIVE RESULT CHECKED [facility] Barbiturates Screen method >300 ng/mL Ql (U) Negative [facility] Benzodiazepines Screen method >300 ng/mL Ql (U) Negative [facility] Benzoylecgonine Screen method >300 ng/mL Ql (U) Negative [facility] Cannabinoids Screen method >50 ng/mL Ql (U) POSITIVE RESULT CHECKED [facility] Drug screen comment (U) [Interp] These Toxicological Screening Tests provide unconfirmed qualitative measurements to aid in treatment and diagnosis in cases of drug use or overdose. This test is used only for medical purposes. A positive result does not indicate or measure intoxication. For specific test performance or pathologist consultation, please contact the Laboratory. The following threshold concentrations are used for these analyses. Values at or above the threshold concentration are reported as Positive. Values below the threshold are reported as negative. Drug Screening Threshold THC/CANNABINOIDS 50 ng/ml METHADONE 300 ng/ml COCAINE METABOLITES 300 ng/ml BENZODIAZEPINE 300 ng/ml PCP 25 ng/ml OPIATE 300 ng/ml AMPHETAMINE/ECSTASY 1000 ng/ml BARBITURATE 200 ng/ml OXYCODONE 100 ng/ml FENTANYL 5 ng/ml [facility] fentaNYL+Norfentanyl Screen Ql (U) NEGATIVE Performed at [address] [address] [facility] Methadone Ql (U) Negative [facility] Opiates Screen method >300 ng/mL Ql (U) Negative [facility] oxyCODONE Ql (U) Negative [facility] Phencyclidine Screen method >25 ng/mL Ql (U) Negative [facility] Laboratory - Chemistry and C hemistry - challengeon 05-01-2023 Potassium [Moles/Vol] Potassium R 3.9 MM OL/L (3.4-5.1 MMOL/L) Performed at [place] [address] [address] [address] 3.4 - 5.1 MMOL/L [facility] Magnesiumon 05-01-2023 Magnesium [Mass/Vol] 2.2 mg/dL [facility] Comment on above: Performed at [place] [address] [place] [address] No Panel Informationon 05-01 Interpretation and review of laboratory results Abnormal [facility] Radiology Study observation (narrative) [facility] Work Phone: [facility] Work Phone: Potassiumon 05-01-2023 Potassium [Moles/Vol] 3.9 mmol/L [facility] Comment on above: Performed at [place] [address] [place] [address] Potassium [Moles/Vol]on 04-04 [facility] Salicylateon 05-01-2023 Salicylates [Mass/Vol] 0.3 mg/dL Low [facility] Comment on above: LESS THAN Performed at [place] [address] [place] [address] Urinalysis complete W Reflex Culture panel (U)on 05-01-2023 Bacteria identified Cx Nom (U) CULTURE NOT INDICATED [facility] Bilirubin Ql (U) Negative NEG [facility] Casts type not specified Computer assisted (U) [#/Area] 2-4 [facility] Comment on above: HYALINE Clarity (U) CLEAR [facility] Color (U) YELLOW [facility] Crystals unspecified Computer assisted Ql (U) Occasional CA OXAL [facility] Epithelial casts Computer assisted (U) [#/Area] Occasional /HPF [facility] Comment on above: SQUAMOUS Performed at [place] [address] [place] [address] Glucose Auto test strip (U) [Mass/Vol] Negative NEG mg/dL [facility] Hemoglobin Auto test strip Ql (U) NONE SEEN [facility] Hemoglobin Ql (U) Negative NEG [facility] Ketones Auto test strip Ql (U) Negative NEG [facility] Leukocyte esterase Auto test strip Ql (U) Negative NEG [facility] Nitrite Auto test strip Ql (U) Negative NEG [facility] pH (U) 5.0 [pH] 4.6 - 8.0 [facility] Protein (U) [Mass/Vol] TRACE Abnormal NEG mg/dL [facility] Specific gravity (U) [Rel density] 1.013 1.005 - 1.030 [facility] Urinalysis dipstick W Reflex Microscopic panel (U) MANUAL MICROSCOPIC URINES [facility] Urobilinogen Ql (U) 2.0 High [facility] WBC Auto (Urine sed) [#/Area] NONE SEEN [facility] CNDSon 04-01-2023 [facility] HNO ID: [id number] Author: Florencio Clement MD Service: Psychiatry Author Type: Physician Type: Discharge Summary Filed: 04/01/2023 7:52 PM Note Text: DISCHARGE SUMMARY BEHAVIORAL HEALTH PATIENT NAME: Kandice Polanco ADMISSION DATE: 03/26/2023 DISCHARGE DATE: 04/01/2023 ATTENDING PHYSICIAN: Florencio Clement MD Code Status: Not on file Highest Readmission Risk Score: 24 The 30 day readmissions risk score is derived from an internally validated risk model which evaluates patient level characteristics, utilization history, medication orders and lab results up until the day of discharge. Patients with a score of 40 or above are considered highest risk for readmission. Specific patient level drivers will be listed at the bottom of the summary. REASON FOR HOSPITALIZATION: Risk of physical harm to self (Pt initially presented with SI and Insomnia) DISCHARGE DIAGNOSIS: PRIMARY: MDD, recurrent, severe without psychotic features Alcohol use disorder, severe, dependence Cannabis use disorder, moderate OCD per Hx EMILY GAF: -60-51 Moderate symptoms or moderate difficulty in social, occupational or school functioning. OPERATIONS DURING HOSPITALIZATION: None PROCEDURES DURING HOSPITALIZATION: No procedures performed HOSPITAL COURSE: Admitted to [address] Florencio Clement's supervision. Oriented to unit, including milieu, social work, and group therapies. The patient was monitored for general safety precautions in psychiatric setting. General internal medicine was consulted for general medical management. Routine inpatient psychiatric as needed medications were provided. Prior documentation and circumstances surrounding admission were reviewed. The patient was involved in verifying history as well as participating in treatment planning to the furthest extent possible. Psychiatric medications were started and dosed to final doses seen below. Medical issues were managed by internal medicine physician; please see separate documentation for all details pertinent to medical care. Residual suicide/homicide/psychos is/violence/inability to care for self risk was at baseline (chronic risk), as maximization of inpatient psychiatry treatment benefit was achieved to address acute risks which initially led to admission. Discharged in stable condition, felt to be safe for community by physician staff. Inpatient treatment course: Kandice Polanco is a 42 year old male with past medical/psychiatric history of of HTN, EMILY (not using CPAP), Alcohol use disorder, cannabis use disorder, MDD and MAYUR who initially presented to [facility] from home by friend on 03/26/23 for suicidal ideation (with plan to hang self or overdose on medications) in the setting of a relapse with alcohol use, following a recent admission to [facility] (03/20 - 03/24/23 for suicidal ideation in the setting of running out of Zyprexa, excess drinking and resulting SI). Patient was initially admitted to [facility] for alcohol intoxication but was medically cleared and transferred to [address] after 32 hours of observation at [facility]. He had been discharged from [facility] on Lexapro 10 mg daily, Gabapentin 200 mg BID, Trazodone 50 mg QHS PRN insomnia, and Atarax 50 mg q6hrs PRN for anxiety. He was advised to continue Adderall 15 mg BID. Zyprexa was discontinued during this hospitalization (pt reports that he was initially prescribed 2 months ago, and had been over-using the medication). Following discharge from [facility] on 03/24, the patient found 6 tall boys in his trunk and drank what was left. Patient's Utox on admission was positive for amphetamines (prescribed Adderall), cannabinoids, and alcohol. The patient was seen by his outpatient provider (Dr. Sue in [place], [place]) earlier in the day on day of admission, and she recommended patient be evaluated in the ED. At [facility], the patient was started on CIWA with Ativan PRN initially. He received a total of 8 mg Ativan prior to admission and vital signs were stable on admission to . Given that the patient did not demonstrate s/s of alcohol withdrawal on admission and that he was sober while at [facility] and drank for only one day after discharge/prior to this hospitalization, low concern for acute alcohol withdrawal on admission. The patient was monitored on CIWA and did not require additional PRN Ativan while hospitalized on . Patient reports prior alcohol treatment through , several prior detox admissions at [facility], and one residential program at [facility]. Patient was started on appropriate nutrient supplementation, including B12, folic acid, and thiamine. Patient reports recent stressors to include his father being ill (recent COVID infection and subsequent fall with possible transition to hospice care) and the of his 3 pets within the past 3 months. On admission, patient reported symptoms of worsening anxiety and (more content not included)... [facility] NURSING PROGon 04-01-2023 NURSING PROG HNO ID: [id number] Author: Anni Horan, RN Service: Nursing Author Type: Registered Nurse Type: Nursing Progress Note Filed: 04/01/2023 1:28 PM Note Text: Nursing Progress Note Patient Name: Kandice Polanco Patient Location: [address] Daily Note: 04/01/23 0700 - 1930 Assumed care of patient. Patient up and on the unit for breakfast this morning, appetite remains good. Patient ate all meals in the day area and attended group. Assessment completed per unit protocol. Patient presents with an euthymic affect. Patient states he slept a lot better last night and used a sound machine to help him stay asleep. Patient endorses feeling better and is ready to go. Patient rates his anxiety @ 2/10 , depression @ 2/10, denies SI, HI, AVH, and pain. Patient remains in control, cooperative and medication compliant. (TBD) Patient discharge information reviewed and understood, rx scripts sent to patient pharmacy, medications reviewed, patient left with no iv or patches present, all belongings returned to patient and signed for. Patient stable and ready for discharge. (TBD) Patient discharged off the floor This note was completed by: Anni Horan [facility] NURSING PROG HNO ID: [id number] Author: Guadalupe Madrigal RN Service: Nursing Author Type: Registered Nurse Type: Nursing Progress Note Filed: 04/01/2023 6:52 PM Note Text: Nursing Progress Note Patient Name: Kandice Polanco Patient Location: [facility]/[id number] Assumed care of pt, currently day area with peers, no complaints voiced at this time. 1752 OOR for dinner, looking forward to discharge this evening. Denies pain, SI/HI/AVH, wishes, cravings, and using dreams. Pt states he is going to follow up with AA and counseling, discussed with pt the importance of obtaining a sponsor and having a sober support system in place. Gait is steady, safety precautions maintained. 1845 Pt left unit in stable condition with all personal belongings, no IV or medication patches in place at time of discharge. Verbalized understanding of all discharge instructions. Attended select groups while on unit. Follow up in place with AA and counseling. Left unit with father and staff to navigate to front entrance. Left with a bright affect and future oriented. This note was completed by: Guadalupe Madrigal [facility] NURSING PROGon 03-31-2023 NURSING PROG HNO ID: [id number] Author: Martha White RN Service: Nursing Author Type: Registered Nurse Type: Nursing Progress Note Filed: 03/31/2023 6:06 AM Note Text: Patient visible on unit in the day area. He denies all psych. Patient agreeable to take HS medications after they were reviewed. His appearance and hygiene are acceptable. No further needs at this time. Will continue to monitor. 0600 slept 6.5 hours [facility] ID: [id number] Author: Anni Horan RN Service: Nursing Author Type: Registered Nurse Type: Nursing Progress Note Filed: 03/31/2023 9:02 AM Note Text: Nursing Progress Note Patient Name: Kandice Polanco Patient Location: [facility]/[id number] Daily Note: 03/31/23 0700 - 1930 Assumed care of patient. Patient up and on the unit this morning. Patient ate breakfast and then returned to his room. Patient requested to be woke up for group. Assessment completed per unit protocol. Patient presents with an euthymic and anxious affect. Patient states he did not sleep that well last night. He does endorse feeling better since being admitted. Patient rates his anxiety @ 5/10 (atarax administered), depression @ 5/10 (states that he is just out of his element and misses home), denies SI, HI, AVH, and pain. Patient remains in control, cooperative and medication compliant. This note was completed by: Anni Horan [facility] NURSING [facility] ID: [id number] Author: Sumi Zambrano RN Service: Nursing Author Type: Registered Nurse Type: Nursing Progress Note Filed: 04/01/2023 6:15 AM Note Text: Nursing Progress Note Patient Name: Kandice Polanco Patient Location: [facility]/[id number] Daily Note: [phone] Pt out in day area watching tv with peers. Pleasant, blunted affect. Requests medication for anxiety, given prn atarax along with scheduled medications. Feeling anxious about getting behind on things at home. Feels medication is helping with his anxiety. Reports depression fluctuated today d/t not having as many groups today. Denies SI. Hoping for discharge soon. I feel like I'm ready. Planning on attending AA meetings and individual counseling after discharge. Reports some trouble sleeping still. Denies pain or any other needs. 2200- Observed asleep. 0600- Slept 8 hours. This note was completed by: Sumi Zambrano [facility] CONSULTon 03-30-2023 CONSULT HNO ID: [id number] Author: Magdalene Gilliland MD Service: General Internal Medicine Author Type: Physician Type: Consults Filed: 03/30/2023 12:44 PM Note Text: INTERNAL MEDICINE INITIAL CONSULT SERVICE DATE: 03/30/2023 SERVICE TIME: 12 PM REASON FOR CONSULT: Medical management of the patient REQUESTING PHYSICIAN: Psychiatry PRIMARY CARE PHYSICIAN: Shakeel Kaye DO Subjective HISTORY OF PRESENT ILLNESS: Mr. Polanco is a 42 year old male who presents for past medical history of htn history of bipolar disorder admitted to the hospital related to suicidal ideation patient has been using alcohol and benzodiazepine and he started getting withdrawal from it PAST MEDICAL HISTORY Diagnosis Date Hypertension Psychiatric disorder No past surgical history on file. FAMILY HISTORY Problem Relation Age of Onset Osteoporosis Father Osteoporosis Mother Osteoporosis Paternal Grandmother Social History Tobacco Use Smoking status: Never Vaping Use Vaping Use: current everyday user Substance Use Topics Alcohol use: Yes Drug use: Yes Types: Marijuana olmesartan (BENICAR) 40 mg tablet, Take 40 mg by mouth once daily., Disp: , Rfl: , 03/25/2023 hydrOXYzine pamoate (VISTARIL) 50 mg capsule, Take 50 mg by mouth three times daily as needed for anxiety., Disp: , Rfl: , 03/25/2023 cloNIDine HCl (CATAPRES) 0.2 mg tablet, Take 0.2 mg by mouth daily at bedtime., Disp: , Rfl: , 03/26/2023 at morning folic acid 1 mg tablet, folic acid 1 mg tablet TAKE 1 TABLET BY MOUTH DAILY, Disp: , Rfl: , 03/25/2023 dextroamphetamine-amphet amine (ADDERALL) 10 mg tablet, Take 10 mg by mouth three times daily., Disp: , Rfl: , 03/26/2023 gabapentin (NEURONTIN) 100 mg capsule, Take 200 mg by mouth twice daily., Disp: , Rfl: , 03/26/2023 escitalopram oxalate (LEXAPRO) 10 mg tablet, Take 10 mg by mouth once daily., Disp: , Rfl: , 03/25/2023 traZODone (DESYREL) 50 mg tablet, Take 50 mg by mouth daily at bedtime., Disp: , Rfl: Current Facility-Administered Medications Medication Dose Route Frequency LORazepam 2 mg (ATIVAN) 2 mg ORAL q 4 H PRN Or LORazepam 2 mg injection (ATIVAN) 2 mg INTRAMUSCULAR q 4 H PRN haloperidol 5 mg tab(s) (HALDOL) 5 mg ORAL q 4 H PRN Or haloperidol lactate 5 mg short-acting injection (HALDOL) 5 mg INTRAMUSCULAR q 4 H PRN hydrOXYzine HCl 50 mg tab(s) (ATARAX) 50 mg ORAL q 4 H PRN aluminum-magnesium hydroxide-simethicone 200-200-20 mg/5 mL 30 mL 30 mL ORAL q 4 H PRN magnesium hydroxide 400 mg/5 mL 30 mL (MOM) 30 mL ORAL DAILY PRN benztropine 2 mg injection (COGENTIN) 2 mg INTRAMUSCULAR q 30 MIN PRN diphenhydrAMINE 50 mg injection (BENADRYL) 50 mg INTRAMUSCULAR q 30 MIN PRN nicotine polacrilex 2 mg gum (NICORETTE) 2 mg ORAL q 2 H PRN melatonin 3 mg tab(s) 3 mg ORAL DAILY (8 PM) therapeutic multivitamin-minerals tablet (THERA-M PLUS) 1 tablet ORAL DAILY WITH BREAKFAST thiamine 100 mg tab(s) (VITAMIN B1) 100 mg ORAL TID folic acid 1 mg tab(s) 1 mg ORAL DAILY WITH BREAKFAST ondansetron 4 mg tab(s) (ZOFRAN) 4 mg ORAL q 6 H PRN Or ondansetron (PF) 4 mg injection (ZOFRAN) 4 mg INTRAMUSCULAR q 6 H PRN Or ondansetron (PF) 4 mg injection (ZOFRAN) 4 mg INTRAVENOUS q 6 H PRN escitalopram oxalate 10 mg tab(s) (LEXAPRO) 10 mg ORAL DAILY acetylcysteine 1,200 mg cap(s) (NAC) 1,200 mg ORAL BID doxepin 10 mg cap(s) (SINEquan) 10 mg ORAL AT BEDTIME cyanocobalamin 500 mcg (VITAMIN B-12) 500 mcg ORAL DAILY cholecalciferol 1,000 Units tab(s) (VITAMIN D3) 1,000 Units ORAL DAILY gabapentin 300 mg cap(s) (NEURONTIN) 300 mg ORAL BID ALLERGIES Allergen Reactions Bactrim [Sulfametho* Other: See Comments Codeine Other: See Comments Erythromycin Other: See Comments Penicillins Other: See Comments COMPLETE REVIEW OF SYSTEMS: GENERAL: No weight loss, malaise or fevers HEENT: Negative for frequent or significant headaches, No changes in hearing or vision, no nose bleeds or other nasal problems NECK: Negative for lumps, goiter, pain and significant neck swelling RESPIRATORY: Negative for cough, hemoptysis, wheezing, COPD, dyspnea or shortness of breath CARDIOVASCULAR: Negative for chest pain, leg swelling, hypertension, CHF or palpitations GI: No nausea, vomiting, or diarrhea MUSCULOSKELETAL: Negative for joint pain or swelling, back pain or muscle pain SKIN: Negative for lesions, rash, and itching HEMATOLOGY/LYMPHOLOGY: Negative for prolonged bleeding, bruising easily or swollen nodes ENDOCRINE: Negative for cold or heat intolerance, polyuria, polydipsia and goiter Objective PHYSICAL EXAM: Patient Vitals for the past 24 hrs: BP Temp Temp src Pulse Resp SpO2 03/30/23 0726 143/95 37.1 ?C (98.7 ?F) Temporal Art 61 16 98 % 03/29/232019 134/91 36.7 ?C (98.1 ?F) Temporal 69 16 93 % Body mass index is 31.22 kg/m?. GENERAL: Healthy, alert, no distress, cooperative SKIN: Skin color, texture, turgor normal. No rashes or lesions. OROPHARYNX: Lips, (more content not included)... [facility] NURSING PROGon 03-30-2023 NURSING PROG HNO ID: [id number] Author: Marge Lyon, RN Service: ? Author Type: Registered Nurse Type: Nursing Progress Note Filed: 03/30/2023 1:44 PM Note Text: Assumed care of patient. Pt. out for meals. Attended and participated in group. Denies pain, depression and low anxiety 1-10/12. Pt. complaint with medication and decided to take the NAC to see how he would react to it because he feels he will need it when he leaves because he will have more access to alcohol. Pt. showered and got into his personal clothing for the first time since he arrived. Pleasant with staff and peers. Asked for hydroxyzine after one of his phone calls with his mother. IDTP: Pt. denies SI, HI, AVH at this time. Had several phone calls which visibly affect his anxiety. [facility] NURSING PROGon 03-29-2023 NURSING PROG HNO ID: [id number] Author: Shannon Brooke RN Service: Nursing Author Type: Registered Nurse Type: Nursing Progress Note Filed: 03/29/2023 7:44 PM Note Text: Nursing Progress Note Patient Name: Kandice Polanco Patient Location: [address] Daily Note:0730 Assumed care of patient who was resting quietly in room at beginning of shift. Approaches nurse's station to request PRN medication for anxiety. States that he feels particularly anxious this morning. Denies depression I'm not depressed. Denies SI/HI/AVH. Attends and participates in group therapy session this morning. Attends and participates in spirituality group this afternoon. Patient retreats to room this afternoon, resting. States that he is trying to catch up on sleep after not sleeping well. Requests PRN medication for anxiety this evening. States that he wishes there were groups all day long. Safety maintained this shift. This note was completed by: Shannon Brooke [facility] NURSING PROG HNO ID: [id number] Author: Sumi Zambrano RN Service: Nursing Author Type: Registered Nurse Type: Nursing Progress Note Filed: 03/30/2023 6:02 AM Note Text: Nursing Progress Note Patient Name: Kandice Polanco Patient Location: [facility]/[id number] Daily Note: 9623-9114 Pt out in day area watching tv with peers. Blunted affect, pleasant, cooperative. Reports he had a rough day yesterday d/t anxiety and not sleeping well, but is feeling less anxious today. Denies SI. Pt declines N-acetylcysteine, states he is not having any drug or alcohol cravings. Denies pain or any other needs. 2129- Observed asleep. 599- Slept 8.5 hours. This note was completed by: Sumi Zambrano [facility] NURSING PROGon 03-28-2023 NURSING PROG HNO ID: [id number] Author: Kianna Roy, RN Service: Nursing Author Type: Registered Nurse Type: Nursing Progress Note Filed: 03/28/2023 6:03 AM Note Text: Nursing Progress Note Patient Name: Kandice Polanco Patient Location: [facility]/[id number] Assumed care of pt. Pt remained in his room this shift. AANDOx3. Affect anxious and withdrawn. Poor eye contact. Soft spoken. Denies all psych- appears to minimize symptoms. Attempted to give scheduled NAC, pt stated I really don't need that, I don't feel like I have any cravings Pt offered support and educated on benefits of medication. Appeared restless in bed, offered PRN atarax, pt declined. Accepted night meds with some resistance. Denies pain. Reports good sleep quality, eating, using bathroom ok. CIWA 1 for anxiety. No other needs or concerns voiced. Will continue to monitor pt for safety. 0600- Pt slept approximately 8.5 hrs. Safety maintained. This note was completed by: Kianna Roy [facility] NURSING [facility] ID: [id number] Author: Marge Lyon, RN Service: ? Author Type: Registered Nurse Type: Nursing Progress Note Filed: 03/28/2023 6:46 PM Note Text: Assumed care of patient. Pt. out for meals and attended and participated in groups pleasant with staff and peers. Complaint with medication however, refused NAC stating he has no cravings. Pt. very focused on discharge. Pt. made many calls to a friend named Gavin. Gavin later called the unit stating he was the families advertising account representative (untrue he's the pt. friend) and wanted information but didn't want to talk to the pt. Pt. DID NOT want any info released to Gavin. However, Gavin stated he did not think pt. should be released because he has a serious alcohol problem which causes him to have S/I and is worried he will immediately drink and hurt himself. Pt. later called and spoke to Gavin, after the conversation pt. was visibly more anxious. When asked he stated he was worried Gavin's opinion would determine whether he would be able to go home or not. Also asked if he wanted anything for his anxiety he said no, instead changed his mind and had his lunch around 1300, ate 100%. Pt. was very thankful we spoke to him stated it really helped to ease his anxiety. 1800 - 0: Pt. made numerous phone calls about 10 in 20 minutes. He states its because he has 4 cats and is worried. Pt. asked to speak with me and stated his anxiety was high but would not rate it. I suggested he take the hydroxyzine and he agreed he said he worried by taking it, it would prolong his stay. I reassured him that would happen by him taking the med. IDTP: -Depression 0/10 Anxiety 0/10 (anxiety heightened after his phone conversation 01/09) -Denies SI, HI, AVH at this time -Denies pain -CIWA: Scored 0 [facility] NURSING [facility] ID: [id number] Author: Kalie Alexandre, RN Service: Nursing Author Type: Registered Nurse Type: Nursing Progress Note Filed: 03/29/2023 6:33 AM Note Text: Daily Note: 1900 Patient was seen resting in bed at the start of shift. No complaints voiced. He was heard being social with his roommates, talking about concerts he's been to. He requested and received his medications at 2035. He was seen sleeping in his bed at 2057. Breathing even and unlabored. 222 Patient was seen up out of bed. He requested and received Atarax. He was seen sleeping in his bed at 2247. 0036 Patient was seen to be awake in bed. He was seen sleeping at 0049. 0318 Patient was seen up out of bed getting a snack. He was seen sleeping in his bed at 0343. 0600 Patient slept 6.75 hours. [facility] NUTRITION 03-28-2023 NUTRITION HNO ID: [id number] Author: Mikki Sevilla RD Service: Nutrition Therapy Author Type: Registered Dietitian Type: Nutrition Filed: 03/28/2023 12:29 PM Note Text: NUTRITION THERAPY INITIAL ASSESSMENT SERVICE DATE: 03/28/2023 SERVICE TIME: 1141 Nutrition Assessment: Recommended Malnutrition Diagnosis: Moderate Protein-Calorie Malnutrition In the context of: Social/Environmental Circumstance Based on: Unintentional Weight Loss, Insufficient Energy Intake Nutrition Diagnosis: Problem: Suboptimal oral intake Related to: Substance abuse As evidenced by: Patient/family self-report, Weight loss, Food/nutrition related history Estimated kilocalorie needs: 1920- 2400 Calorie Calculation Method: 20-25 kcals/kg Estimated protein needs (grams): 96- 115 Grams protein determined by: 1.0 - 1.2 g/kg Care Plan: Continue current diet Vitamins and Minerals: Multivitamin with minerals, Thiamine, B12, Vitamin D Monitor and Evaluation: Meet greater than 75% of estimated needs, Monitor bowel function Discharge Recommendations: Diet;Oral Supplements Diet: regular Oral Supplements: vitamins HPI: admit for tx of depression, psych mednonconmpliance and heavy ETOH intake with hx of this. Detox at [facility] 03/20-; home for a day with ETOH binge then to [facility] and now to . Without N/V at present Intake History: Nutrition Intake Prior to Admission: Less than 75% estimated energy needs (due to ETOH; breakfast befoe work; order out at work. few slice pizza; dinner spaghetti or burger often. might drink then throw up and keep drining. no vitamins) greater than or equal to 3 months Current Nutrition Intake: Greater than 75% estimated energy needs Current Intake Over time: (1 day) Diet Orders (From admission, onward) Start Ordered 03/26/232129 DIET REGULAR START NOW 03/26/232121 Anthropometrics: Height: 175.3 cm (5' 9 ) Weight: 95.9 kg (211 lb 6.4 oz) Dosing Weight: 95.9 kg (211 lb 6.7 oz) Usual Weight: 104.3 kg (230 lb) couple months ago cant say a specific time Usual Weight Obtained From: Patient Body mass index is 31.22 kg/m?. Obese Weight change percentage over time: 9.4% loss in 4 months Physical Exam: Subcutaneous fat loss: No fat loss Muscle loss: No muscle loss Potential micronutrient deficiency: No deficiency identified Edema/Ascites: No edema GI Symptoms: Nausea, Vomiting, Anorexia (related to ETOH) Stool Amount: WNL Functional Status: Not related to malnutrition status Potential Signs of Inflammation: Imaging studies, Chronic condition HTN fatty liver GERD MNT Billing: $ Initial Assessment: 1-15 minutes SIGNATURE: Mikki Sevilla RD PATIENT NAME: Kandice Polanco DATE: March 28, 2023 TIME: 12:26 PM [facility] ALLIED HEALTH 03-27-2023 ALLIED HEALTH HNO ID: [id number] Author: Greta Vargas Art Therapist Service: Art Therapy Author Type: Therapist Type: Allied Health Filed: 03/27/2023 3:47 PM Note Text: THERAPEUTIC PROGRAMMING ASSESSMENT SERVICE DATE: 03/27/2023 SERVICE TIME: 330 RECOMMENDATIONS: Community Resources Expressive Therapy Illness/Symptom Management Leisure Education Leisure Skills Relaxation Self Awareness Socialization Stress Management ACTIVITIES OF DAILY LIVING (Difficulty in the following ADL areas): some difficulties with sleeping GENERAL OBSERVATIONS: Affect: Constricted Alert Appearance: Clean and Groomed Communication: Appropriate interaction Mood: Anxious Oriented to: person, place, time and situation ASSESSMENT COMPLETED: Yes: STRESS MANAGEMENT SKILLS: Pt shared that he was unable to shut his mind off in order to sleep. Pt then began taking new medication, would mix with alcohol, and that pt began drinking more and then feeling suicidal. No current SI/HI or AH/VH. Identified Stressors: not sleeping Effective Coping Strategies Used: reaching out to friend Ineffective Coping Strategies Used: drinking INTERESTS: Current: Reconnecting with restoration, making music, learning art techniques PATIENT'S GOALS FOR THERAPEUTIC PROGRAMMING: Build more confidence in abilities Channel energy/feelings into constructive outlets Explore inner resources/self-awareness Find ways to relax Improve coping skills Improve coping skills without using drugs or alcohol Improve thinking skills (memory, attention) while doing things Improve use of leisure time Spend more time with other people Utilize art materials SIGNATURE: Greta Vargas, Art Therapist PATIENT NAME: Kandice Polanco DATE: March 27, 2023 TIME: 3:41 PM PAGER/CONTACT #: [facility] Ammonia Plas-sCncon 03-27-20 23 Ammonia (P) [Moles/Vol] 23 umol/L Normal 16-60 [facility] Comment on above: Order Comment: Speci men Type: BLOOD SPECIMEN Ordering Facility: [facility] Address: [address] [place] [address] Performed By: #### 2 132-9, 26267-2, 21164-0, 47557-6 #### [facility] CLIA [id number] [address] [place] [address] Bilirub Conj SerPl-mCncon Bilirubin.conjugated [Mass/Vol] mg/dL Normal <0.2 [facility] Comment on above: Order Comment: Speci men Type: BLOOD SPECIMEN Ordering Facility: [facility] Address: [address] [place], [place] [phone] Performed By: #### 2 132-9, 65476-4, 40526-4, 64892-4 #### [facility] CLIA [id number] [address] [place] [address] OF DEB Comprehensive metabolic 2000 panelon 03-27-2023 Albumin [Mass/Vol] 3.9 g/dL Normal 3.9-4.9 [facility] Comment on above: Order Comment: Speci men Type: BLOOD SPECIMEN Ordering Facility: [facility] Address: [address] [place], [place] [phone] Performed By: #### 2 132-9, 72783-7, 41874-4, 59101-6 #### [facility] CLIA [id number] [address] [place] [address] [place] ALP [Catalytic activity/Vol] 89 U/L Normal 38-113 [facility] Comment on above: Order Comment: Speci men Type: BLOOD SPECIMEN Ordering Facility: [facility] Address: [address] [place], [place] [phone] Performed By: #### 2 132-9, 12443-3, 56107-1, 44392-4 #### [facility] CLIA [id number] [address] [place] [address] [place] ALT [Catalytic activity/Vol] 56 U/L High 10-54 [facility] Comment on above: Order Comment: Speci men Type: BLOOD SPECIMEN Ordering Facility: [facility] Address: [address] [place], [place] [phone] Performed By: #### 2 132-9, 73792-2, 37972-4, 71644-5 #### [facility] [place] [id number] [address] [place] [address] [place] Anion gap [Moles/Vol] 11 mmol/L Normal 9-18 [facility] Comment on above: Order Comment: Speci men Type: BLOOD SPECIMEN Ordering Facility: [facility] Address: [address] [place], [place] [phone] Performed By: #### 2 132-9, 04558-2, 89286-5, 73128-6 #### [facility] CLIA [id number] [address] [place] [address] STATES [place] AST [Catalytic activity/Vol] 43 U/L High 14-40 [facility] Comment on above: Order Comment: Speci men Type: BLOOD SPECIMEN Ordering Facility: [facility] Address: [address] [phone] Performed By: #### 2 132-9, 38009-8, 78557-7, 25177-4 #### [facility] CLIA [id number] [address] [place] [address] [place] Bilirubin [Mass/Vol] 0.4 mg/dL Normal 0.2-1.3 [facility] Comment on above: Order Comment: Speci men Type: BLOOD SPECIMEN Ordering Facility: [facility] Address: [address] [phone] Performed By: #### 2 132-9, 71347-9, 91563-6, 50339-5 #### [facility] CLIA [id number] [address] [place] [address] [place] Calcium [Mass/Vol] 9.1 mg/dL Normal 8.5-10.2 [facility] Comment on above: Order Comment: Speci men Type: BLOOD SPECIMEN Ordering Facility: [facility] Address: [address] [phone] Performed By: #### 2 132-9, 92099-7, 05698-0, 43665-8 #### [facility] CLIA [id number] [address] [place] [address] [place] Chloride [Moles/Vol] 100 mmol/L Normal 97-105 [facility] Comment on above: Order Comment: Speci men Type: BLOOD SPECIMEN Ordering Facility: [facility] Address: [address] [phone] Performed By: #### 2 132-9, 25447-6, 72865-3, 92826-0 #### [facility] CLIA [id number] [address] [place], [place] [address] [place] CO2 [Moles/Vol] 25 mmol/L Normal 22-30 [facility] Comment on above: Order Comment: Speci men Type: BLOOD SPECIMEN Ordering Facility: [facility] Address: [address] [phone] Performed By: #### 2 132-9, 83676-8, 82147-5, 53600-5 #### [facility] CLIA [id number] [address] [place], [place] [address] [place] Creatinine [Mass/Vol] 0.97 mg/dL Normal 0.73-1.22 [facility] Comment on above: Order Comment: Carlos de la cruz Type: BLOOD SPECIMEN Ordering Facility: [facility] Address: [address] [place], [place] [phone] Performed By: #### 2 132-9, 78690-7, 73384-1, 79589-2 #### [facility] [place] [id number] [address] [place] [address] STATES OF [facility] ESTIMATED GLOMERULAR FILTRATION RATE 99 mL/min/1.73m??? Normal >=60 [facility] Comment on above: Order Comment: Carlos de la cruz Type: BLOOD SPECIMEN Ordering Facility: [facility] Address: [address] [place] [address] Result Comment: Isabel mated Glomerular Filtration Rate (eGFR) is calculated using the 2020 CKD-EPI creatinine equation. This equation utilizes serum creatinine, sex, and age as parameters. The creatinine assay has traceable calibration to isotope dilution-mass spectrometry. Refer to KDIGO guidelines for clinical interpretation. In patients with unstable renal function, e.g. those with acute kidney injury, the eGFR may not accurately reflect actual GFR. Performed By: #### 2 132-9, 26955-5, 24016-5, 27029-2 #### [facility] CLIA [id number] [address] [place], [place] [address] [place]B Glucose [Mass/Vol] 95 mg/dL Normal 74-99 [facility] Comment on above: Order Comment: Carlos de la cruz Type: BLOOD SPECIMEN Ordering Facility: [facility] Address: [address] [place] [address] Result Comment: The [place] Diabetes Association (ADA) provides guidance for cutoff values for fasting glucose and random glucose. The ADA defines fasting as no caloric intake for at least 8 hours. Fasting plasma glucose results between 100 to 125 mg/dL indicate increased risk for diabetes (prediabetes). Fasting plasma glucose results greater than or equal to 126 mg/dL meet the criteria for diagnosis of diabetes. In the absence of unequivocal hyperglycemia, results should be confirmed by repeat testing. In a patient with classic symptoms of hyperglycemia or hyperglycemic crisis, random plasma glucose results greater than or equal to 200 mg/dL meet the criteria for diagnosis of diabetes. Reference: Standards of Medical Care in Diabetes 2016, [place] Diabetes Association. Diabetes Care. 2016.39(Suppl 1). Performed By: #### 2 132-9, 53115-3, 25300-5, 66210-5 #### [facility] CLIA [id number] [address] [place] [address] [place] Potassium [Moles/Vol] 4.1 mmol/L Normal 3.7-5.1 [facility] Comment on above: Order Comment: Speci jono Type: BLOOD SPECIMEN Ordering Facility: [facility] Address: [address] [place], [place] [phone] Performed By: #### 2 132-9, 69076-8, 46778-9, 56656-5 #### [facility] CLIA [id number] [address] [place] [address] [place] Protein [Mass/Vol] 6.6 g/dL Normal 6.3-8.0 [facility] Comment on above: Order Comment: Carlos de la cruz Type: BLOOD SPECIMEN Ordering Facility: [facility] Address: [address] [place], [place] [phone] Performed By: #### 2 132-9, 68612-5, 41567-8, 52331-3 #### [facility] CLIA [id number] [address] [place], [place] [address] [place] Sodium [Moles/Vol] 136 mmol/L Normal 136-144 [facility] Comment on above: Order Comment: Balai men Type: BLOOD SPECIMEN Ordering Facility: [facility] Address: [address] [place] [phone] Performed By: #### 2 132-9, 84661-7, 69118-1, 55855-2 #### [facility] CLIA [id number] [address] [id number] [place] Urea nitrogen [Mass/Vol] 11 mg/dL Normal 9- [facility] Comment on above: Order Comment: Carlos jono Type: BLOOD SPECIMEN Ordering Facility: [facility] Address: [address] [place] [address] Performed By: #### 2 132-9, 25075-5, 47370-9, #### [facility] CLIA [id number] [facility] [place] [address] [place] HbA1c (Bld)on 03-27-2023 Average glucose Estimated from glycated hemoglobin (Bld) [Mass/Vol] 105 mg/dL Normal [facility] Comment on above: Order Comment: [facility] Type: BLOOD SPECIMEN Ordering Facility: [facility] Address: [address] [place] [address] Result Comment: eAG: (Estimated average glucose) is a calculated value from HgbA1c and is advertising account representative of the average blood glucose level in the last 2-3 month period. Performed By: #### 2 132-9, 77842-6, 83440-9, #### [facility] CLIA [id number] [address] [place] [address] STATES OF [place]B HbA1c (Bld) [Mass fraction] 5.3 % Normal 4.3-5.6 [facility] Comment on above: Order Comment: [facility] Type: BLOOD SPECIMEN Ordering Facility: [facility] Address: [address] [place] [address] Result Comment: Amer [place] Diabetes Association guidelines indicate that patients with HgbA1c in the range 5.7-6.4% are at increased risk for development of diabetes, and intervention by lifestyle modification may be beneficial. HgbA1c greater or equal to 6.5% is considered diagnostic of diabetes. Performed By: #### 2 132-9, 92791-4, 02672-4, 13321-4 #### [facility] CLIA [id number] [address] [place] [address] [facility] OF DEB Lipid 1996 panelon 3 Cholesterol [Mass/Vol] 158 mg/dL Normal <200 [facility] Comment on above: Order Comment: Carlos de la cruz Type: BLOOD SPECIMEN Ordering Facility: [facility] Address: [address] [place] [address] Result Comment: <200 mg/dL, Desirable 200-239 mg/dL, Borderline high >239 mg/dL, High Performed By: #### 2 132-9, 59989-6, 76960-7, 22998-8 #### [facility] CLIA [id number] [address] [place], [place] [address] [place] OF [place]B Cholesterol in HDL [Mass/Vol] 39 mg/dL Low >39 [facility] Comment on above: Order Comment: Speci jono Type: BLOOD SPECIMEN Ordering Facility: [facility] Address: [address] [place] [address] Result Comment: 40-5 9 mg/dL, Acceptable >59 mg/dL, High: Negative risk factor for coronary heart disease <40 mg/dL, Low: Positive risk factor for coronary heart disease Performed By: #### 2 132-9, 00337-2, 36817-5, 84950-2 #### [facility] CLIA [id number] [facility] [id number] [facility] Cholesterol in LDL [Mass/Vol] 88 mg/dL Normal <100 [facility] Comment on above: Order Comment: Speci men Type: BLOOD SPECIMEN Ordering Facility: [facility] Address: [address] [place], [place] [phone] Result Comment: <100 mg/dL, Optimal 100-129 mg/dL, Near optimal/above optimal 130-159 mg/dL, Borderline high 160-189 mg/dL, High >189 mg/dL, Very high Secondary prevention optimal LDL Cholesterol levels are recommended to be < 70 mg/dL Performed By: #### 2 132-9, 42455-4, 52730-4, 39829-2 #### [facility] CLIA [id number] [address] [place], [place] [address] [facility] Cholesterol in LDL/Cholesterol in HDL [Mass ratio] 2.26 {ratio} Normal <2.54 [facility] Comment on above: Order Comment: Balakenneth de la cruz Type: BLOOD SPECIMEN Ordering Facility: [facility] Address: [address] [place] [address] Result Comment: Refe rence: 1. National Cholesterol Education Program ATP III Guideline At-A-Glance Quick Desk Reference: National Heart, Lung, and Blood [place]. National Institutes of Health. 2001: NIH Publication No. 01-3305. 2. An International Atherosclerosis Society position paper: global recommendations for the management of dyslipidemia: executive summary, Atherosclerosis. 2014: 232(2):410-413. Performed By: #### 2 132-9, 29343-8, 79413-9, 73607-2 #### [facility] [place] [id number] [facility] [place] [id number] [place] Cholesterol in VLDL [Mass/Vol] 31 mg/dL High <30 [facility] Comment on above: Order Comment: Balai jono Type: BLOOD SPECIMEN Ordering Facility: [facility] Address: [address] [place] [address] Performed By: #### 2 132-9, 31274-9, 31749-9, 32139-4 #### [facility] CLIA [id number] [address] [place], [place] [id number] [place] Cholesterol non HDL [Mass/Vol] 119 mg/dL Normal <130 [facility] Comment on above: Order Comment: Speci jono Type: BLOOD SPECIMEN Ordering Facility: [facility] Address: [address] [place] [address] Result Comment: <130 mg/dL, Optimal 130-159 mg/dL, Near optimal/above optimal 160-189 mg/dL, Borderline high 190-219 mg/dL, High >219 mg/dL, Very high Secondary prevention optimal non HDL Cholesterol levels are recommended to be <100 mg/dL Performed By: #### 2 132-9, 42101-1, 02607-5, 26267-0 #### [facility] CLIA [id number] [address] [address] [facility] DBE Cholesterol.total/Cho lesterol in HDL [Mass ratio] 4.05 {ratio} Normal <5.10 [facility] Comment on above: Order Comment: Speci men Type: BLOOD SPECIMEN Ordering Facility: [facility] Address: [address] [place], [place] [address] Performed By: #### 2 132-9, 79658-3, 60729-2, 46972-3 #### [facility] CLIA [id number] [address] [place], [place] [id number] [facility] DEB FASTING TIME Unknown Normal [facility] Comment on above: Order Comment: Speci men Type: BLOOD SPECIMEN Ordering Facility: [facility] Address: [address] [place] [address] Performed By: #### 2 132-9, 64780-5, 33538-6, 45329-7 #### [facility] CLIA [id number] [address] [place] [id number] [place] Triglyceride [Mass/Vol] 153 mg/dL High <150 [facility] Comment on above: Order Comment: Speci men Type: BLOOD SPECIMEN Ordering Facility: [facility] Address: [address] [place] [address] Result Comment: <150 mg/dL, Normal 150-199 mg/dL, Borderline high 200-499 mg/dL, High >499 mg/dL, Very high Performed By: #### 2 132-9, 14044-9, 66235-1, 30278-6 #### [facility] CLIA [id number] [facility] [place] [id number] [facility] OF DEB NURSING PROGon 03-27-2023 NURSING PROG HNO ID: [id number] Author: Kianna Roy RN Service: Nursing Author Type: Registered Nurse Type: Nursing Progress Note Filed: 03/26/2023 10:48 PM Note Text: -------- Attestation signed by Florencio Clement MD at 03/27/2023 10:36 AM Care plan reviewed with team as noted below. Florencio Clement MD 10:36 AM, March 27, 2023 Psychiatry Staff -------- BEHAVIORAL HEALTH INITIAL INPATIENT INTERDISCIPLINARY TREATMENT PLAN DATE INITIATED: 03/26/2023 10:48 PM Patient's Goal of Treatment: get my sleep medications right Active Hospital Problems *MDD (major depressive disorder), severe (HCC) Criteria for Discharge: Elimination/reduction of presenting behavior: SI Estimated length of stay: 5 to 7 days Interdisciplinary Treatment Plan Date Initiated: 03/26/23 Time Initiated: 2055 Patient Participation in Initial Treatment Plan: Yes Initial Treatment Plan Date: 03/26/23 Other Participants: N/A Strengths/Assets: Insight into illness, Employed, Stable living situation, Able to read and/ or write Limitations: Lacks health literacy, Not adherent with treatment Precautions indicated: Routine Precautions Individualized problems: Mood disorder Problem - Discharge Needs Date Initiated: 03/26/23 Time Initiated: 2057 Discharge Needs: Encourage patient to utilize appropriate coping skills, Encourage patient to maintain sobriety or explore ambivalence re: sobriety Interventions - Nursing: Obtain baseline level of functioning on admission, Administer medications as indicated and monitor patient for effect daily, Provide education to the patient and/or family about the disease process and management as appropriate daily and as needed, Provide non-judgmental supportive, empathetic and comprehensive trauma informed care daily and as needed, Use therapeutic communication skills to develop patient trust and a nurse-patient relationship daily and as needed, Assess for signs of escalating emotions and help identify ways to appropriately express feelings as needed, Assist with developing positive coping behaviors daily and as needed, Assess for escalating behavior and utilize de-escalation skills as needed, Encourage independence with daily functioning daily and as needed, Assist with activities of daily living, utilizing any necessary assistive devices daily and as needed, Monitor nutritional intake daily, Provide a quiet, restful environment to promote sleep/rest daily and as needed, Encourage patient participation in milieu activities daily and as needed Problem - Mood Disorder As evidenced by: Anxiety, Helplessness, Hopelessness Date Initiated: 03/26/23 Time Initiated: 2057 Mood Disorder: Depression Short Term Goals: Patient participates in 2 daily activities by day 3 Target Date Short Term Goals: 03/29/23 Progress Towards Short Term Goals: Progressing Jail Goals: Patient expresses examples of optimism and hope for the future Target Date Special Needs Caregiver Goals: 04/04/23 Progress Towards Jail Goals: Progressing Interventions - Nursing: Obtain baseline level of functioning on admission, Administer medications as indicated and monitor patient for effect daily, Provide education to the patient and/or family about the disease process and management as appropriate daily and as needed, Provide non-judgmental supportive, empathetic and comprehensive trauma informed care daily and as needed, Use therapeutic communication skills to develop patient trust and a nurse-patient relationship daily and as needed, Assist with developing positive coping behaviors daily and as needed, Assess for signs of escalating emotions and help identify ways to appropriately express feelings as needed, Encourage independence with daily functioning daily and as needed, Assess for escalating behavior and utilize de-escalation skills as needed, Assist with activities of daily living, utilizing any necessary assistive devices daily and as needed, Monitor nutritional intake daily, Provide a quiet, restful environment to promote sleep/rest daily and as needed, Encourage patient participation in milieu activities daily and as needed Medical Problems Medical Problems Identified: Yes Active Problems: Other: See Comment (hypertension) Staff in attendance and in agreement with this plan: Kianna Roy RN This plan was reviewed with patient/family. Attending Psychiatrist: Dr. Clement DOCUMENTED BY: Kianna Roy RN PATIENT NAME: Kandice Polanco DATE: March 26, 2023 TIME: 10:48 PM [facility] NURSING PROG HNO ID: [id number] Author: iKanna Roy RN Service: Nursing Author Type: Registered Nurse Type: Nursing Progress Note Filed: 03/26/2023 11:41 PM Note Text: Nursing Progress Note Patient Name: Kandice Polanco Patient Location: /[id number] Pt is 42 yr old male admitted to from [facility] for Suicidal Ideation. He states he is here to get his medications right and that he overused his sleep medications . He began drinking yesterday. He felt suicidal with plan to hang himself. He reports no intent. He explained he suffers from insomnia and drinks in an attempt to sleep. Drinking leads to him feeling down and suicidal . Drinking results in difficulties at work and with relationships. He was discharged from [facility] Saturday and detoxed from alcohol there. Drank once discharged. He drinks 8 25 ounce beers daily and vapes marijuana daily. Tox screen positive for alcohol, marijuana, amphetamines (Adderal prescribed). History of MDD, MAYUR, Bipolar 1, suicide attempt, Alcohol abuse. Pt follows Dr. Sue outpatient. Suicide attempt in 2018- drank and overdosed on Seroquel. Medical history includes Hypertension, Sleep apnea, GERD, abnormal liver function. Stressors include his dad and his pets dying. Protective factors pets, friends, family, work, and therapist. Endorsing high anxiety and depression. Denies pain, SI/HI/AVH. He was given unit tour. Skin check unremarkable. Signed paperwork, including voluntary. ANAYELI notified of pt arrival. Pt contracts for safety and feels safe on the unit. This note was completed by: Kianna Roy [facility] NURSING PROG HNO ID: [id number] Author: Kalie Alexandre, NICOLE Service: Nursing Author Type: Registered Nurse Type: Nursing Progress Note Filed: 03/27/2023 6:29 AM Note Text: Daily Note: 2300 Patient was seen in the interview room. No complaints voiced. He was cooperative with medication at 2312. CIWA 1 He was seen sleeping in his bed at 2329. Breathing even and unlabored. 0447 Patient turned in his menu. He was seen sleeping in his bed at 0459. 0600 Patient slept 6.25 hours. [facility] NURSING PROG HNO ID: [id number] Author: Ciro Worthy, RN Service: Nursing Author Type: Registered Nurse Type: Nursing Progress Note Filed: 03/27/2023 10:30 AM Note Text: [id number] Observed him sleeping in his room at the start of care 0900 out of room ate breakfast appetite fair c/o feeling tired safety maintained [facility] NURSING PROG HNO ID: [id number] Author: Johan Feng RN Service: Nursing Author Type: Registered Nurse Type: Nursing Progress Note Filed: 03/27/2023 6:15 PM Note Text: Pt care assumed at 1130 Pt denies SI/HI, hallucinations and paranoia. Pt is AANDOx3. Pt is cooperative with staff. Upon assessment Pt is observed in his room resting with a withdrawn, anxious, and disheveled presentation. PT rates his anxiety as mild and manageable. Pt affect is congruent at this time. Pt CIWA is unremarkable and vitals are stable. Pt speech is clear and movements are with purpose. Pt was informed lunch will be served soon and encourage to eat. Pt is on routine checks. 1320: Pt took scheduled thiamine. 1554: Gavin Morton called for an update on Pt, PT gave verbal consent to talk to Gavin. [facility] Reagin and Treponema pallidu m IgG and IgM [Interp]on 03-27-2023 SYPHILIS INTERPRETATION Cannot exclude recent Treponemal infection if specimen collected within 7-10 days after appearance of suspect lesions or 2-3 weeks after an exposure. Clinical correlation is required. [facility] Comment on above: Order Comment: Speci men Type: BLOOD SPECIMEN Ordering Facility: [facility] Address: [address] [place], [place] [address] Performed By: #### 7 3752-8 #### [facility] CLIA [id number] [address] [facility] [place] [address] [place] T. pallidum IgG+IgM IA Ql (S) Non-Reactive [place] Nonreactive [facility] Comment on above: Order Comment: Speci men Type: BLOOD SPECIMEN Ordering Facility: [facility] Address: [address] [place] [address] Performed By: #### 7 3752-8 #### [facility] CLIA [id number] [address] STATES OF [facility] Vit B12 SerPl-ncon 023 Cobalamin (Vitamin B12) [Mass/Vol] 211 pg/mL Low 232-1245 [facility] Comment on above: Order Comment: Speci men Type: BLOOD SPECIMEN Ordering Facility: [facility] Address: [address] [place] [address] Performed By: #### 2 132-9, 48481-3, 40297-7, 46985-1 #### [facility] CLIA [id number] [address] [place] [address] OF [facility] 25([place])D3 [facility] 25-hydroxyvitamin D3 [Mass/Vol] 28.5 ng/mL Low 31.0-80.0 [facility] Comment on above: Order Comment: Speci men Type: BLOOD SPECIMENOrdering Facility: [facility] Address: [address] [place] [address] Result Comment: Clas sification of 25 [place] Vitamin D status: Deficiency/Insufficiency: < or = 30 ng/ml. Sufficiency/Optimal Levels: 31-80 ng/mL Toxicity: > 100 ng/mL. Test performed by chemiluminescent immunoassay. Performed By: #### 1 989-3 ####[facility] [id number] [address] [place] CBC panel Auto (Bld)on 03-26 Erythrocyte distribution width (RBC) [Ratio] 13.4 % Normal 11.5-15.0 [facility] Comment on above: Order Comment: Speci men Type: BLOOD SPECIMENOrdering Facility: [facility] Address: [address] [place] [address] Performed By: #### 5 8410-2 ####[facility] [id number] [address] [place] Hematocrit (Bld) [Volume fraction] 43.0 % Normal 39.0-51.0 [facility] Comment on above: Order Comment: Speci men Type: BLOOD SPECIMENOrdering Facility: [facility] Address: [address] [place] [address] Performed By: #### 5 8410-2 ####[facility] [id number] [address] [place] Hemoglobin (Bld) [Mass/Vol] 14.7 g/dL Normal 13.0-17.0 [facility] Comment on above: Order Comment: Speci men Type: BLOOD SPECIMENOrdering Facility: [facility] Address: [address] [place] [address] Performed By: #### 5 8410-2 ####[facility] [id number] [address] STATES OF [facility] MCH (RBC) [Entitic mass] 33.6 pg Normal 26.0-34.0 [facility] Comment on above: Order Comment: Speci men Type: BLOOD SPECIMENOrdering Facility: [facility] Address: [address] [place] [address] Performed By: #### 5 8410-2 ####[facility] [id number] [place] [address] [place] MCHC (RBC) [Mass/Vol] 34.2 g/dL Normal 30.5-36.0 [facility] Comment on above: Order Comment: Speci men Type: BLOOD SPECIMENOrdering Facility: [facility] Address: [address] [place] [address] Performed By: #### 5 8410-2 ####[facility] [id number] [address] [place] MCV (RBC) [Entitic vol] 98.4 fL Normal 80.0-100.0 [facility] Comment on above: Order Comment: Speci men Type: BLOOD SPECIMENOrdering Facility: [facility] Address: [address] [place] [address] Performed By: #### 5 8410-2 ####[facility] [id number] [place] [address] [place] Nucleated RBC (Bld) [#/Vol] 10*3/uL Normal <0.01 [facility] Comment on above: Order Comment: Speci men Type: BLOOD SPECIMENOrdering Facility: [facility] Address: [address] [place] [address] Performed By: #### 5 8410-2 ####[facility] [id number] [place] [address] [place] Platelet mean volume (Bld) [Entitic vol] 9.5 fL Normal 9.0-12.7 [facility] Comment on above: Order Comment: Speci men Type: BLOOD SPECIMENOrdering Facility: [facility] Address: [address] [place] [address] Performed By: #### 5 8410-2 ####[facility] [id number] [place] [address] [place] Platelets (Bld) [#/Vol] 283 10*3/uL Normal 150-400 [facility] Comment on above: Order Comment: Speci men Type: BLOOD SPECIMENOrdering Facility: [facility] Address: [address] Performed By: #### 5 8410-2 ####[facility] [id number] [place] [address] [place] RBC (Bld) [#/Vol] 4.37 10*6/uL Normal 4.20-6.00 [facility] Comment on above: Order Comment: Speci men Type: BLOOD SPECIMENOrdering Facility: [facility] Address: [address] [place] [address] Performed By: #### 5 8410-2 ####[facility] [id number] [place] [address] [facility] OF DEB WBC (Bld) [#/Vol] 6.45 10*3/uL Normal 3.70-11.00 [facility] Comment on above: Order Comment: Speci men Type: BLOOD SPECIMENOrdering Facility: [facility] Address: [place] [address] Performed By: #### 5 8410-2 ####[facility] [id number] [place] [address] [facility] CNDSon 03-26-2023 CNDS HNO ID: [id number] Author: Dewey Toussaint MD Service: Hospital Medicine Author Type: Physician Type: Discharge Summary Filed: 03/28/2023 2:20 PM Note Text: DISCHARGE SUMMARY PATIENT NAME: Kandice Polanco ADMISSION DATE: 03/25/2023 DISCHARGE DATE: 03/26/2023 ATTENDING PHYSICIAN: No att. providers found Code Status: Not on file PCP: Shakeel Kaye DO Highest Readmission Risk Score: 11 The 30 day readmissions risk score is derived from an internally validated risk model which evaluates patient level characteristics, utilization history, medication orders and lab results up until the day of discharge. Patients with a score of 40 or above are considered highest risk for readmission. Specific patient level drivers will be listed at the bottom of the summary. TRANSITIONS OF CARE CRITICAL ISSUES: JONES MEDICATION CHANGES: see below LAB MONITORING NEEDED: Not applicable IMAGING FOLLOW-UP: Not applicable LABS AND PROCEDURES PENDING AT DISCHARGE: Test Results Not Yet Available from This Hospitalization: Please Review at Your Follow Up Appointment Order Current Status TESTOSTERONE, FREE AND TOTAL In process No pending results. FOLLOW UP: The appointment NEEDS TO BE scheduled. REASON FOR HOSPITALIZATION: Alcohol intoxication PRINCIPAL DIAGNOSIS: Alcohol intoxication SECONDARY DIAGNOSIS: Principal Problem: Alcohol intoxication with moderate or severe use disorder, with unspecified complication (HCC) (POA: Yes) Active Problems: Severe episode of recurrent major depressive disorder, without psychotic features (HCC) (POA: Unknown) MAYUR (generalized anxiety disorder) (POA: Unknown) Malnutrition of moderate degree (HCC) (POA: Yes) Resolved Problems: * No resolved hospital problems. * HOSPITAL COURSE: Patient presented to [facility] ED on 03/26 was admitted for alcohol intoxication and during admission he made a comment about ideas of dying and hanging himself although his ideas were not active at the precise moment of admission. Psychiatry was consulted. Recommended inpatient psych admission. He was discharged on 03/26 to inpatient psych. OPERATIONS/PROCEDURE DURING THIS HOSPITALIZATION: * No surgery found * No other procedures CONSULTS DURING HOSPITALIZATION: Treatment Team: Consulting: Helga Clayton PA-C Orders Placed This Encounter Physician Consult PATIENT CONDITION AT DISCHARGE: Stable ADVANCE CARE PLANNING DISCUSSION (if applicable): N/A DISCHARGE DISPOSITION: Discharge to inpatient psych facility Discharge Physical Exam: VITAL SIGNS: BP 110/64 Pulse 66 Temp 36.5 ?C (97.7 ?F) (Oral) Resp 16 Ht 175.3 cm (5' 9 ) Wt 95.7 kg (210 lb 15.7 oz) SpO2 96% BMI 31.16 kg/m? See daily progress note from 03/26 WOUND/SURGICAL SITE CARE: None SUPPLIES OR EQUIPMENT: None DIET: Resume pre-hospital diet ACTIVITY AND EXERCISE: Resume pre-hospital activity ADDITIONAL INFORMATION: NA FOLLOW UP APPOINTMENTS: No future appointments. ALLERGIES Allergen Reactions Bactrim [Sulfametho* Other: See Comments Codeine Other: See Comments Erythromycin Other: See Comments Penicillins Other: See Comments DISCHARGE MEDICATION: Medication List ASK your doctor about these medications BENICAR 40 mg tablet Generic drug: olmesartan cloNIDine HCl 0.2 mg tablet Commonly known as: CATAPRES dextroamphetamine-amphet amine 10 mg tablet Commonly known as: ADDERALL escitalopram oxalate 10 mg tablet Commonly known as: LEXAPRO folic acid 1 mg tablet gabapentin 100 mg capsule Commonly known as: NEURONTIN hydrOXYzine pamoate 50 mg capsule Commonly known as: VISTARIL traZODone 50 mg tablet Commonly known as: DESYREL The patient's risk for 30-day readmission is determined using the following contributing factors: Pt variables contributing to increased readmission risk: 11 Most Recent BUN Result 9.3 First Resulted Calcium During Admission 1 Previous ED Visit (6 mos.)? 1 Number of Previous ED Visits (6 mos.) 1 Insurance - Medicaid 1 History of Drug Abuse/Dependence I have performed the jtyu-fu-slop and relevant services for a total of >30 minutes. Plan of care discussed with Provider, RN, Patient SIGNATURE: Dewey Toussaint MD DATE: March 28, 2023 TIME: 2:17 PM Normal [facility] CONSULTon 03-26-2023 CONSULT HNO ID: [id number] Author: Irish Love APRN.CNP Service: Psychiatry Author Type: Nurse Practitioner Type: Consults Filed: 03/26/2023 1:52 PM Note Text: CL NEW - PSYCHIATRY INITIAL CONSULTATION NOTE SERVICE DATE: March 26, 2023 SERVICE TIME: 944 CONSULTING SERVICE : Psychiatry, requested by Noreen Gonzales MD REASON FOR CONSULTATION: SI. Visit Type: Virtual Visit utilizing two-way audio and video for at least a portion of the visit. Consent for virtual visit obtained verbally. Confidentiality limitations with virtual visits reviewed with the patient and guardian, if present, who have accepted the risk verbally prior to proceeding with encounter. I have communicated my name and active licensure. The patient's identity and physical location were verified at the time of this visit. Either the patient or their legal advertising account representative has been informed of the risks and benefits of -- and alternatives to -- treatment through a remote evaluation and consents to proceed with the evaluation remotely. Consult requested for an opinion regarding the evaluation and treatment of SI. My final impression and recommendations will be communicated back to the requesting physician by way of the shared medical record. Some elements were copied from the previous note (from our service) which have been updated where appropriate and reflect current decision making from today- 03/26/2023. IDENTIFYING INFO: Mr. Polanco is a 42 year old male from [place], [place]. With the patient consent, visit was performed virtually. HISTORY OF PRESENT ILLNESS : This is a 42 year old with a PMHx of HTN, EMILY (does not wear CPAP), alcohol use disorder, cannabis use disorder and unspecified mood disorder was admitted to [facility] on 03/26/2023 for SI and alcohol intoxication now being treated for alcohol withdrawal. Patient was seen by his outpatient psychiatric provider yesterday and was instructed to go to the ED for SI. Psychiatry was consulted for SI. Patient was started on CIWA with Ativan on admission per primary team. Patient has received a total of 8 mg thus far, last CIWA was 6 scoring 4 for anxiety, VSS. Per chart review, patient was recently discharged from inpatient psych on Saturday. Did drink for 1 day CRYSTAL MOUNTER to [facility]. Acute alcohol withdrawal less likely at this time. No s/s of alcohol withdrawal noted on assessment, patient was sober prior to recent admission to inpatient psych and was readmitted to the hospital one day after discharge. Seen patient at bedside via video chat lying in bed in no apparent distress. Patient is AANDOX4 calm, cooperative and engaged in conversation. Patient appears withdrawn and depressed. Denies any SI/HI/AVH when directly asked. Reports SI in the setting of intoxication. Patient was recently discharged from inpatient psychiatry at [facility] on Saturday03/24/2023, reports found some beer in the trunk of his car and drank what was left. States that he did not purchase any new alcohol. Patient did not feel he was ready for discharge from [facility] and was admitted there for SI, depression and anxiety. Endorses ongoing anxiety to the point that he is no longer able to function and or work full-time. Has had one prior suicide attempt in 2018 by OD on Seroquel and alcohol. Recent stressors/triggers include the loss of 3 pets within the last 3 months they are like my kids, as I don't have any of my own and his fathers acute illness with COVID and recent fall, with possible hospice. Father has now improved and doing well. Has a strong support system of family and friends. Reports that his mother and father are still and has one younger brother who are all very supportive. Follows outpatient psychiatry in [facility] and reports that his friend drove him to [facility] for admission due to SI. Patient reports that his mood is not stable feels he may have bipolar disorder. States that his lack of sleep is his biggest concern as he can't shut his mind off, which then triggers his anxiety and depression. When he was admitted to [facility] they switched him from Cymbalta to Lexapro 10 mg daily and was started on Zyprexa 5 mg at bedtime. Patient states that he was not taking Zyprexa as prescribed, was taking 10 mg of Zyprexa at bedtime to help with sleep, anxiety and intrusive thoughts and did not find this helpful. Patient is motivated to get better and wants to get his mood, anxiety and sleep stabilized. I will do whatever it takes to get better, this is no way to live . Per Behavioral Health Intake Note dated 03/25/2023: Kandice Polanco is a 42 year old male brought in to [facility] ED from Home by friend for suicidal ideations. Intake spoke with pt over phone for assessment. He is A AND O x 4. Thoughts are logical and linear. He is cooperative throughout assessment. Pt sounds anxious and depressed. He states I don't feel well. Pt states he is in the hospital due to ove (more content not included)... Normal [facility] Comprehensive metabolic 2000 panelon 03-26-2023 Albumin [Mass/Vol] 3.7 g/dL Low 3.9-4.9 [facility] ospital Comment on above: Order Comment: Speci men Type: BLOOD SPECIMENOrdering Facility: [facility] Address: [address] [address] Performed By: #### 3 016-3, , ####[facility] LABORATORYCLIA [id number] [place] [address] [place] ALP [Catalytic activity/Vol] 87 U/L Normal 38-113 [facility] Comment on above: Order Comment: Speci men Type: BLOOD SPECIMENOrdering Facility: [facility] Address: [address] [address] Performed By: #### 3 016-3, , ####[facility] LABORATORYCLIA [id number] [place] [address] [place] ALT [Catalytic activity/Vol] 56 U/L High 10-54 [facility] Comment on above: Order Comment: Speci men Type: BLOOD SPECIMENOrdering Facility: [facility] Address: [address] [address] Performed By: #### 3 016-3, 31137-2, ####[facility] LABORATORYCLIA [id number] [place] [address] [place] Anion gap [Moles/Vol] 12 mmol/L Normal 9-18 [facility] Comment on above: Order Comment: Speci men Type: BLOOD SPECIMENOrdering Facility: [facility] Address: [address] [address] Performed By: #### 3 016-3, 56322-4, ####[facility] LABORATORYCLIA [id number] [place] [address] [place] AST [Catalytic activity/Vol] 54 U/L High 14-40 [facility] Comment on above: Order Comment: Speci men Type: BLOOD SPECIMENOrdering Facility: [facility] Address: [address] [place] [address] Performed By: #### 3 016-3, 06132-6, ####[facility] LABORATORYCLIA [id number] [place] [address] [place] Bilirubin [Mass/Vol] 0.6 mg/dL Normal 0.2-1.3 [facility] Comment on above: Order Comment: Speci men Type: BLOOD SPECIMENOrdering Facility: [facility] Address: [address] [place] [address] Performed By: #### 3 016-3, , ####[facility] [id number] [place] [address] [place] Calcium [Mass/Vol] 8.8 mg/dL Normal 8.5-10.2 [facility] Comment on above: Order Comment: Speci men Type: BLOOD SPECIMENOrdering Facility: [facility] Address: [address] [place] [address] Performed By: #### 3 016-3, , ####[facility] [id number] [place] [address] [place] Chloride [Moles/Vol] 104 mmol/L Normal 97-105 [facility] Comment on above: Order Comment: Speci men Type: BLOOD SPECIMENOrdering Facility: [facility] Address: [address] [place] [address] Performed By: #### 3 016-3, 29099-1, ####[facility] LABORATORYCLIA [id number] [place] [address] [place] CO2 [Moles/Vol] 23 mmol/L Normal 22-30 [facility] Comment on above: Order Comment: Speci men Type: BLOOD SPECIMENOrdering Facility: [facility] Address: [address] [address] Performed By: #### 3 016-3, 73642-2, ####[facility] LABORATORYCLIA [id number] [facility] [place] [address] [place] Creatinine [Mass/Vol] 0.98 mg/dL Normal 0.73-1.22 [facility] Comment on above: Order Comment: Speci men Type: BLOOD SPECIMENOrdering Facility: [facility] Address: [address] [address] Performed By: #### 3 016-3, 16403-6, ####[facility] LABORATORYCLIA [id number] [place] [address] [facility] ESTIMATED GLOMERULAR FILTRATION RATE 98 mL/min/1.73m??? Normal >=60 [facility] Comment on above: Order Comment: Speci men Type: BLOOD SPECIMENOrdering Facility: [facility] Address: [address] [address] Result Comment: Isabel mated Glomerular Filtration Rate (eGFR) is calculated using the 2020 CKD-EPI creatinine equation. This equation utilizes serum creatinine, sex, and age as parameters. The creatinine assay has traceable calibration to isotope dilution-mass spectrometry. Refer to KDIGO guidelines for clinical interpretation. In patients with unstable renal function, e.g. those with acute kidney injury, the eGFR may not accurately reflect actual GFR. Performed By: #### 3 016-3, 76067-6, ####[facility] LABORATORYCLIA [id number] [place] [address] [place] Glucose [Mass/Vol] 89 mg/dL Normal 74-99 [facility] Comment on above: Order Comment: Speci men Type: BLOOD SPECIMENOrdering Facility: [facility] Address: [address] Result Comment: The [place] Diabetes Association (ADA) provides guidance for cutoff values for fasting glucose and random glucose. The ADA defines fasting as no caloric intake for at least 8 hours. Fasting plasma glucose results between 100 to 125 mg/dL indicate increased risk for diabetes (prediabetes). Fasting plasma glucose results greater than or equal to 126 mg/dL meet the criteria for diagnosis of diabetes. In the absence of unequivocal hyperglycemia, results should be confirmed by repeat testing. In a patient with classic symptoms of hyperglycemia or hyperglycemic crisis, random plasma glucose results greater than or equal to 200 mg/dL meet the criteria for diagnosis of diabetes. Reference: Standards of Medical Care in Diabetes 2016, [place] Diabetes Association. Diabetes Care. 2016.39(Suppl 1). Performed By: #### 3 016-3, 90814-6, ####[facility] [id number] [place] [address] [place] Potassium [Moles/Vol] 3.9 mmol/L Normal 3.7-5.1 [facility] Comment on above: Order Comment: Speci men Type: BLOOD SPECIMENOrdering Facility: [facility] Address: [address] [address] Performed By: #### 3 016-3, 10777-9, ####[facility] [id number] [place] [address] [place] Protein [Mass/Vol] 6.4 g/dL Normal 6.3-8.0 [facility] Comment on above: Order Comment: Speci men Type: BLOOD SPECIMENOrdering Facility: [facility] Address: [address] [address] Performed By: #### 3 016-3, 88917-9, ####[facility] [id number] [place] [address] [place] Sodium [Moles/Vol] 139 mmol/L Normal 136-144 [facility] Comment on above: Order Comment: Speci men Type: BLOOD SPECIMENOrdering Facility: [facility] Address: [address] [address] Performed By: #### 3 016-3, 34385-1, 32852-9 ####[facility] [id number] [place] [address] [place] Urea nitrogen [Mass/Vol] 11 mg/dL Normal 9-24 [facility] Comment on above: Order Comment: Speci men Type: BLOOD SPECIMENOrdering Facility: [facility] Address: [address] [place], [place] [address] Performed By: #### 3 016-3, 94124-5, 40573-6 ####[facility] [id number] [place] [address] [place] Ethanol SerPl-mCncon 023 Ethanol [Mass/Vol] mg/dL Normal <11 [facility] Comment on above: Order Comment: Speci men Type: BLOOD SPECIMENOrdering Facility: [facility] Address: [address] [place] [address] Performed By: #### 5 643-2 ####[facility] [id number] [place] [address] [place] GGT SerPl-cCncon 03-26-2023 Gamma glutamyl transferase [Catalytic activity/Vol] 103 U/L High 10-70 [facility] Comment on above: Order Comment: Speci men Type: BLOOD SPECIMENOrdering Facility: [facility] Address: [address] [place] [address] Performed By: #### 2 324-2 ####[facility] LABIA [id number] [address] [address] [id number] [place] HISTORY PHYSICALon HISTORY PHYSICAL HNO ID: [id number] Author: Florencio Clement MD Service: Psychiatry Author Type: Physician Type: HANDP Filed: 03/27/2023 10:25 AM Note Text: HISTORY AND PHYSICAL BEHAVIORAL HEALTH SERVICE DATE: 03/26/2023 SERVICE TIME: 9:41 PM IDENTIFYING INFORMATION: Kandice Polanco is a 42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 REASON FOR ADMISSION: SI and Insomnia Subjective HISTORY OF PRESENT ILLNESS: Chief Complaint: Kandice Polanco is a 42 year old year old with a history of HTN, EMILY (not using CPAP), Alcohol use disorder, cannabis use disorder who presents with SI in the context of intoxication. Per Behavioral Health Intake denoted below in italics: Kandice Polanco is a 42 year old male brought in to [facility] ED from Home by friend for suicidal ideations. Intake spoke with pt over phone for assessment. He is A AND O x 4. Thoughts are logical and linear. He is cooperative throughout assessment. Pt sounds anxious and depressed. He states I don't feel well. Pt states he is in the hospital due to overused a sleep medication and then started drinking. Pt states he told a friend this morning he was feeling suicidal with a plan to hang himself. Pt states I'm tired of fighting it. Pt states he was recently admitted to [facility] psych unit from Saturday to Saturday. He was discharged and started drinking. He drinks 8 25oz beers daily and smokes marijuana. He reports withdrawal symptoms of shakes and sweats. Pt states he has been to detox/rehab before but not in years. He denies hx of seizures and DTs. He has not taken his medications since being discharged yesterday. Pt states for the past few months his depression and anxiety have increased. He has poor sleep (trouble staying asleep) and poor appetite. He denies homcidal ideations and A/V hallucinations. He reports previous suicide attempt in 2018 when he drank and overdosed on Seroquel. Pt states he is not med compliant normally and has been overusing his Zyprexa and out of this medication for the past 2 weeks. Pt follows with Dr. Sue in [place], [place]. He had an appointment with outpatient provider today who suggested pt go to the ED. Pt reports stressors of his dad being sick and 3 of his pets have . Pt states he still has 4 cats at home who bring him comfort. He denies having access to guns or weapons at home. 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 He would like to be admitted today Tox screen + amphetamines (prescribed Adderall), cannabinoids, and alcohol. BAL 206 in the ED. No restraints or PRNs needed in the ED. The information below taken Rasheed Rosemarycarol ann 's HANDP from 03/26/23 is denoted in italics: This is a 42 year old with a PMHx of HTN, EMILY (does not wear CPAP), alcohol use disorder, cannabis use disorder and unspecified mood disorder was admitted to [facility] on 03/26/2023 for SI and alcohol intoxication now being treated for alcohol withdrawal. Patient was seen by his outpatient psychiatric provider yesterday and was instructed to go to the ED for SI. Psychiatry was consulted for SI. Patient was started on CIWA with Ativan on admission per primary team. Patient has received a total of 8 mg thus far, last CIWA was 6 scoring 4 for anxiety, VSS. Per chart review, patient was recently discharged from inpatient psych on Saturday. Did drink for 1 day [employer] to [facility]. Acute alcohol withdrawal less likely at this time. No s/s of alcohol withdrawal noted on assessment, patient was sober prior to recent admission to inpatient [facility] and was readmitted to the hospital one day after discharge. Seen patient at bedside via video chat lying in bed in no apparent distress. Patient is AANDOX4 calm, cooperative and engaged in conversation. Patient appears withdrawn and depressed. Denies any SI/HI/AVH when directly asked. Reports SI in the setting of intoxication. Patient was recently discharged from inpatient psychiatry at [facility] on Saturday03/24/2023, reports found some beer in the trunk of his car and drank what was left. States that he did not purchase any new alcohol. Patient did not feel he was ready for discharge from [facility] and was admitted there for SI, depression and anxiety. Endorses ongoing anxiety to the point that he is no longer able to function and or work full-time. Has had one prior suicide attempt in 2018 by OD on Seroquel and alcohol. Recent stressors/triggers include the loss of 3 pets within the last 3 months they are like my kids, as I don't have any of my own and his fathers acute illness with COVID and recent fall, with possible hospice. Father has now improved and doing well. Has a strong support system of family and friends. Reports that his mother and father are still and has one younger brother who are all very supportive. Follows outpatient psychiatry in [facility] and reports that his friend drove him to [facility] for admission due to SI. Patient re (more content not included)... Normal [facility] Magnesium SerPl-mCncon 03-26 Magnesium [Mass/Vol] 2.0 mg/dL Normal 1.7-2.3 [facility] Comment on above: Order Comment: Speci men Type: BLOOD SPECIMENOrdering Facility: [facility] Address: [address] [place] [address] [place] [address] Performed By: #### 3 016-3, 71641-2, 48151-9 ####[facility] LABORATORYCLIA [id number] [address] [place] [address] [facility] NURSING PROGon 03-26-2023 NURSING PROG HNO ID: [id number] Author: Shannon Horan RN Service: Nursing Author Type: Registered Nurse Type: Nursing Progress Note Filed: 03/25/2023 11:09 PM Note Text: Other: 2039 sitter at bedside, CIWA = 14. Pt c/o constant nausea and has had 4 episodes of emesis (documented in I/O). Spoke with Francine Walter CNP, will place orders. 2100 pt sleeping 2119 sleeping with snoring respirations, appears to have sleep apnea. woken for assessment. Admits to having sleep apnea, does not wear cpap. HOB elevated to help with sleep apnea. States nausea and anxiety is much improved (without intervention). States feels much more relaxed and only mild nausea remains. CIWA = 4, Medicated with compazine for nausea. Sitter remains at bedside. Normal [facility] NUTRITIONon 03-26-2023 NUTRITION HNO ID: [id number] Author: Angeli Leija RD Service: Nutrition Therapy Author Type: Registered Dietitian Type: Nutrition Filed: 03/26/2023 2:37 PM Note Text: NUTRITION THERAPY INITIAL ASSESSMENT SERVICE DATE: 03/26/2023 SERVICE TIME: 1100 Nutrition Assessment: Recommended Malnutrition Diagnosis: Moderate Protein-Calorie Malnutrition In the context of: Social/Environmental Circumstance Based on: Unintentional Weight Loss, Insufficient Energy Intake Nutrition Diagnosis: Problem: Suboptimal protein/energy intake Related to: (alcohol use) As evidenced by: Patient/family self-report, Weight loss, Food/nutrition related history Estimated kilocalorie needs: 1290-4818 Calorie Calculation Method: 15-20 kcals/kg Estimated protein needs (grams): 96-115 Grams protein determined by: 1.0 - 1.2 g/kg Care Plan: Continue current diet Vitamins and Minerals: Multivitamin with minerals, Thiamine, Vitamin D Monitor and Evaluation: Meet greater than 75% of estimated needs, Monitor fluid/electrolyte balance, Monitor labs, I/Os, vital signs, weight, Monitor bowel function Discharge Recommendations: Diet;Oral Supplements Diet: Low sodium Oral Supplements: MVI HPI: I have confirmed and edited as necessary the HPI obtained by Noreen Reyes MD on 03/25 and all reflect current status. This is a 42 year old male who presents with pmh of alcohol addiction, marijuana vaping daily, recently DC from inpatient addiction program on Saturday after 5 days detox program. Went home with new regimen of medications. Patient did not get any of them for 12 hours and decided to vape about 12-20 times in a day and drink 8 large cans of beer, then developed n-vomiting once and ideas of dying and ' hanging himself although this ideas are not active at this precise moment. He explains that he was stable until 3-4 weeks ago when he lost his pet and his father got sick (he is better now) and this triggered increase ingestion of alcohol and double dosing of zyprexa using 1 month worth in 2 weeks. At this moment no hallucinations or psychosis, still thoughts but no planning. States that he is anxious and has heartburn. PAST MEDICAL HISTORY Diagnosis Date Hypertension Psychiatric disorder Patient seen this morning for positive MST. States over the past few months when he drinks alcohol he can't keep food down. +N/V last night after a meal but feels better today and expects to eat better. Denies any needs. Intake History: Nutrition Intake Prior to Admission: Less than 75% estimated energy needs greater than or equal to 3 months Current Nutrition Intake: Unable to determine Current Intake Over time: (1 meal 100%, vomited several times after) Diet Orders (From admission, onward) Start Ordered 03/25/23 1745 DIET REGULAR START NOW 03/25/23 1733 Anthropometrics: Height: 175.3 cm (5' 9 ) Weight: 95.7 kg (210 lb 15.7 oz) Dosing Weight: 95.7 kg (210 lb 15.7 oz) Usual Weight: 102.1 kg (225 lb) a few months ago Usual Weight Obtained From: Patient Body mass index is 31.16 kg/m?. Obese Weight change percentage over time: -9.9% over 4 mos, significant Physical Exam: Subcutaneous fat loss: No fat loss Muscle loss: No muscle loss Potential micronutrient deficiency: No deficiency identified Edema/Ascites: No edema, No ascites GI Symptoms: Nausea, Early satiety Stool Amount: Unchanged Functional Status: Regressed Potential Signs of Inflammation: Chronic condition, Hypoalbuminemia HTN MNT Billing: $ Initial Assessment: 1-15 minutes SIGNATURE: Angeli Leija RD, LD PATIENT NAME: Kandice Polanco DATE: March 26, 2023 TIME: 2:35 PM Normal [facility] TESTOSTERONE, FREE AND TOTAL on 03-26-2023 TESTOSTERONE, FREE, S 22.6 ng/dL High 4.46-17.1 [facility] Comment on above: Order Comment: Spec men Type: BLOOD SPECIMENOrdering Facility: [facility] Address: [address] [place] [address] Result Comment: ADDITIONAL INFORMATION This test was developed and its performance characteristics determined by [facility] in a manner consistent with CLIA requirements. This test has not been cleared or approved by the U.S. Food and Drug Administration. Performed By: #### T FTEST ####[facility] LABCLIA [id number] [place] [address] TESTOSTERONE, TOTAL, S 921 ng/dL Normal 240-950 [facility] Comment on above: Order Comment: Speci men Type: BLOOD SPECIMENOrdering Facility: [facility] Address: [address] [id number] Result Comment: ADDITIONAL INFORMATION Testing performed by Liquid Chromatography-Tandem Mass Spectrometry (LC-MS/MS). This test was developed and its performance characteristics determined by [facility] in a manner consistent with CLIA requirements. This test has not been cleared or approved by the U.S. Food and Drug Administration. Test Performed by: [facility] [address] [place] [address] Item Repair Manager: Eddie Larsen M.D. Ph.D.; CLIA# [id number] Performed By: #### T FTEST ####[facility] LABCLIA [id number] [place] [address] TSH SerPl-aCncon 03-26-2023 TSH Qn 2.000 m[IU]/L Normal 0.270-4.200 [facility] Comment on above: Order Comment: Speci men Type: BLOOD SPECIMENOrdering Facility: [facility] Address: [address] [address] Performed By: #### 3 016-3, 40251-2, 52541-4 ####[facility] LABORATORYCLIA [id number] [place] [id number] [facility] Vit B12 [facility] Cobalamin (Vitamin B12) [Mass/Vol] 250 pg/mL Normal 232-1245 [facility] Comment on above: Order Comment: [facility] Type: BLOOD SPECIMENOrdering Facility: [facility] Address: [address] [address] Performed By: #### 2 132-9 ####[facility] LABORATORYCLIA [id number] [place] [address] [facility] ALLIED HEALTH 03-25-2023 ALLIED HEALTH HNO ID: [id number] Author: Yanet Moreno LISW Service: ? Author Type: Living Specialist Type: Allied Health Filed: 03/25/2023 3:11 PM Note Text: BEHAVIORAL HEALTH INTAKE SUICIDE ASSESSMENT NOTE SERVICE DATE: March 25, 2023 SERVICE TIME: 3:10PM Step 5: Documentation Risk Level : Suicide Risk ( Initial Screening):: High Risk Actual risk determined to be : high Clinical Observation: pt is high risk due to substance use and depression, recent hospitalization. Relevant Mental Status Evaluation: pt reports depression, SI, abusing alcohol. Methods of Suicide Risk Evaluation: [place] and SAFE-T Brief Evaluation Summary: Warning Signs: hx depression, substance use, difficulty sleeping, hx suicide attempt Risk Indicators: anxiety, hopelessness, depression, alcohol use, non compliant with medications Protective Factors: pets, family, friends Access to Lethal Means: pt denies Collateral Sources Used and Relevant Information Obtained: friend at bedside Specific Assessment Data to Support Risk Determination Rationale for Actions Taken and Not Taken: He states I don't feel well. Pt states he is in the hospital due to overused a sleep medication and then started drinking. Pt states he told a friend this morning he was feeling suicidal with a plan to hang himself. Pt states I'm tired of fighting it. Pt states he was recently admitted to [facility] psych unit from Saturday to Saturday. He was discharged and started drinking. He drinks 8 25oz beers daily and smokes marijuana. He reports withdrawal symptoms of shakes and sweats. Pt states he has been to detox/rehab before but not in years. He denies hx of seizures and DTs. He has not taken his medications since being discharged yesterday. Pt states for the past few months his depression and anxiety have increased. He has poor sleep (trouble staying asleep) and poor appetite. He denies homcidal ideations and A/V hallucinations. He reports previous suicide attempt in 2018 when he drank and overdosed on Seroquel. Pt states he is not med compliant normally and has been overusing his Zyprexa and out of this medication for the past 2 weeks. Communication of Current Risk Stratification to: Current Medical Providers: Lilia Sidhu PA-C Date 03/25/23 Time 2:50 AM Psychiatrist transmission assembler: pt medically admitted SIGNATURE: ROJELIO Morrison PATIENT NAME: Kandice Polanco DATE: March 25, 2023 TIME: 3:10 PM Normal [facility] Ammonia Plas-sCncon 03-25-20 Ammonia (P) [Moles/Vol] 24 umol/L Normal 16-60 [facility] Comment on above: Order Comment: Speci men Type: BLOOD SPECIMENOrdering Facility: [facility] Address: [address] [place] [phone] Performed By: #### 1 6362-6 ####[facility] LABORATORYCLIA [id number] [address] OF [place] CBC panel Auto (Bld)on 03-25 Erythrocyte distribution width (RBC) [Ratio] 13.5 % Normal 11.5-15.0 [facility] Comment on above: Order Comment: Speci men Type: BLOOD SPECIMENOrdering Facility: [facility] Address: [address] [place] [address] Performed By: #### 5 8410-2 ####[facility] LABORATORYCLIA [id number] [address] Hematocrit (Bld) [Volume fraction] 44.0 % Normal 39.0-51.0 [facility] Comment on above: Order Comment: Speci men Type: BLOOD SPECIMENOrdering Facility: [facility] Address: [address] [place] [address] Performed By: #### 5 8410-2 ####[facility] LABORATORYIA [id number] [address] Hemoglobin (Bld) [Mass/Vol] 15.0 g/dL Normal 13.0-17.0 [facility] Comment on above: Order Comment: Speci men Type: BLOOD SPECIMENOrdering Facility: [facility] Address: [address] [place] [address] Performed By: #### 5 8410-2 ####[facility] LABORATORYIA [id number] [address] OF [place] MCH (RBC) [Entitic mass] 33.0 pg Normal 26.0-34.0 [facility] Comment on above: Order Comment: Speci men Type: BLOOD SPECIMENOrdering Facility: [facility] Address: [address] [place] [address] Performed By: #### 5 8410-2 ####[facility] LABORATORYIA [id number] [address] STATES OF [place] MCHC (RBC) [Mass/Vol] 34.1 g/dL Normal 30.5-36.0 [facility] Comment on above: Order Comment: Speci men Type: BLOOD SPECIMENOrdering Facility: [facility] Address: [address] [address] Performed By: #### 5 8410-2 ####[facility] [id number] [place] [address] [place] MCV (RBC) [Entitic vol] 96.9 fL Normal 80.0-100.0 [facility] Comment on above: Order Comment: Speci men Type: BLOOD SPECIMENOrdering Facility: [facility] Address: [address] [address] Performed By: #### 5 8410-2 ####[facility] [id number] [place] [address] [place] Nucleated RBC (Bld) [#/Vol] 10*3/uL Normal <0.01 [facility] Comment on above: Order Comment: Speci men Type: BLOOD SPECIMENOrdering Facility: [facility] Address: [address] [address] Performed By: #### 5 8410-2 ####[facility] [id number] [place] [address] [place] Platelet mean volume (Bld) [Entitic vol] 9.4 fL Normal 9.0-12.7 [facility] Comment on above: Order Comment: Speci men Type: BLOOD SPECIMENOrdering Facility: [facility] Address: [address] Performed By: #### 5 8410-2 ####[facility] [id number] [place] [address] [place] Platelets (Bld) [#/Vol] 313 10*3/uL Normal 150-400 [facility] Comment on above: Order Comment: Speci men Type: BLOOD SPECIMENOrdering Facility: [facility] Address: [address] [address] Performed By: #### 5 8410-2 ####[facility] LABORATORYIA [id number] [place], [place] [id number] [place] [address] OF DEB RBC (Bld) [#/Vol] 4.54 10*6/uL Normal 4.20-6.00 [facility] Comment on above: Order Comment: Speci men Type: BLOOD SPECIMENOrdering Facility: [facility] Address: [address] [place] [address] Performed By: #### 5 8410-2 ####[facility] LABORATORYCLIA [id number] [place] [address] [place] [facility] WBC (Bld) [#/Vol] 6.88 10*3/uL Normal 3.70-11.00 [facility] Comment on above: Order Comment: Speci men Type: BLOOD SPECIMENOrdering Facility: [facility] Address: [address] [place] [address] Performed By: #### 5 8410-2 ####[facility] [id number] [place] [id number] [place] Comprehensive metabolic 2000 panelon 03-25-2023 Albumin [Mass/Vol] 4.3 g/dL Normal 3.9-4.9 [facility] Comment on above: Order Comment: Speci men Type: BLOOD SPECIMENOrdering Facility: [facility] Address: [address] [place] [address] Performed By: #### 2 4323-8 ####[facility] LABORATORYIA [id number] [place] [address] [place] ALP [Catalytic activity/Vol] 103 U/L Normal 38-113 [facility] Comment on above: Order Comment: Speci men Type: BLOOD SPECIMENOrdering Facility: [facility] Address: [address] [place] [address] Performed By: #### 2 4323-8 ####[facility] LABORATORYIA [id number] [place] [address] [place] [facility] ALT [Catalytic activity/Vol] 64 U/L High 10-54 [facility] Comment on above: Order Comment: Speci men Type: BLOOD SPECIMENOrdering Facility: [facility] Address: [address] [address] Performed By: #### 2 4323-8 ####[facility] LABORATORYIA [id number] [place] [address] [place] Anion gap [Moles/Vol] 16 mmol/L Normal 9-18 [facility] Comment on above: Order Comment: Speci men Type: BLOOD SPECIMENOrdering Facility: [facility] Address: [address] [address] Performed By: #### 2 4323-8 ####[facility] LABORATORYIA [id number] [place] [address] [place] AST [Catalytic activity/Vol] 70 U/L High 14-40 [facility] Comment on above: Order Comment: Speci men Type: BLOOD SPECIMENOrdering Facility: [facility] Address: [address] [address] Performed By: #### 2 4323-8 ####[facility] [id number] [place] [address] [place] Bilirubin [Mass/Vol] 0.3 mg/dL Normal 0.2-1.3 [facility] Comment on above: Order Comment: Speci men Type: BLOOD SPECIMENOrdering Facility: [facility] Address: [address] [address] Performed By: #### 2 4323-8 ####[facility] LABORATORYIA [id number] [place] [address] [place] Calcium [Mass/Vol] 9.3 mg/dL Normal 8.5-10.2 [facility] Comment on above: Order Comment: Speci men Type: BLOOD SPECIMENOrdering Facility: [facility] Address: [address] [place] [address] Performed By: #### 2 4323-8 ####[facility] LABORATORYIA [id number] [place] [address] [place] Chloride [Moles/Vol] 105 mmol/L Normal 97-105 [facility] Comment on above: Order Comment: Speci men Type: BLOOD SPECIMENOrdering Facility: [facility] Address: [address] [address] Performed By: #### 2 4323-8 ####[facility] LABORATORYCLIA [id number] [place] [address] [place] CO2 [Moles/Vol] 21 mmol/L Low 22-30 [facility] Comment on above: Order Comment: Speci men Type: BLOOD SPECIMENOrdering Facility: [facility] Address: [address] [address] Performed By: #### 2 4323-8 ####[facility] LABORATORYCLIA [id number] [place] [address] [place] Creatinine [Mass/Vol] 1.10 mg/dL Normal 0.73-1.22 [facility] Comment on above: Order Comment: Speci men Type: BLOOD SPECIMENOrdering Facility: [facility] Address: [address] [address] Performed By: #### 2 4323-8 ####[facility] LABORATORYIA [id number] [address] STATES OF [place]B ESTIMATED GLOMERULAR FILTRATION RATE 85 mL/min/1.73m??? Normal >=60 [facility] Comment on above: Order Comment: Speci men Type: BLOOD SPECIMENOrdering Facility: [facility] Address: [address] [place] [address] Result Comment: Isabel mated Glomerular Filtration Rate (eGFR) is calculated using the 2020 CKD-EPI creatinine equation. This equation utilizes serum creatinine, sex, and age as parameters. The creatinine assay has traceable calibration to isotope dilution-mass spectrometry. Refer to KDIGO guidelines for clinical interpretation. In patients with unstable renal function, e.g. those with acute kidney injury, the eGFR may not accurately reflect actual GFR. Performed By: #### 2 4323-8 ####[facility] LABORATORYCLIA [id number] [place] [id number] [place] Glucose [Mass/Vol] 138 mg/dL High 74-99 [facility] Comment on above: Order Comment: Speci men Type: BLOOD SPECIMENOrdering Facility: [facility] Address: [address] [place] [address] Result Comment: The [place] Diabetes Association (ADA) provides guidance for cutoff values for fasting glucose and random glucose. The ADA defines fasting as no caloric intake for at least 8 hours. Fasting plasma glucose results between 100 to 125 mg/dL indicate increased risk for diabetes (prediabetes). Fasting plasma glucose results greater than or equal to 126 mg/dL meet the criteria for diagnosis of diabetes. In the absence of unequivocal hyperglycemia, results should be confirmed by repeat testing. In a patient with classic symptoms of hyperglycemia or hyperglycemic crisis, random plasma glucose results greater than or equal to 200 mg/dL meet the criteria for diagnosis of diabetes. Reference: Standards of Medical Care in Diabetes 2016, [place] [employer] Association. Diabetes Care. 2016.39(Suppl 1). Performed By: #### 2 4323-8 ####[facility] LABORATORYCLIA [id number] [place] [address] [place] Potassium [Moles/Vol] 3.7 mmol/L Normal 3.7-5.1 [facility] Comment on above: Order Comment: Balai men Type: BLOOD SPECIMENOrdering Facility: [facility] Address: [address] [address] Performed By: #### 2 4323-8 ####[facility] LABORATORYCLIA [id number] [place] [address] [place] Protein [Mass/Vol] 7.3 g/dL Normal 6.3-8.0 [facility] Comment on above: Order Comment: Speci men Type: BLOOD SPECIMENOrdering Facility: [facility] Address: [address] [address] Performed By: #### 2 4323-8 ####[facility] LABORATORYIA [id number] [place] [address] [place] Sodium [Moles/Vol] 142 mmol/L Normal 136-144 [facility] Comment on above: Order Comment: Speci men Type: BLOOD SPECIMENOrdering Facility: [facility] Address: [address] Performed By: #### 2 4323-8 ####[facility] LABORATORYCLIA [id number] [place] [address] [facility] OF [place]B Urea nitrogen [Mass/Vol] 11 mg/dL Normal - [facility] Comment on above: Order Comment: Speci men Type: BLOOD SPECIMENOrdering Facility: [facility] Address: [address] Performed By: #### 2 4323-8 ####[facility] LABORATORYCLIA [id number] [place] [address] [place] OF [place] ECG COMPLETEon 03-25-2023 ECG COMPLETE Ventricular Rate : 1 02 BPM Atrial Rate : 102 BPM P-R Interval : 152 ms QRS Duration : 94 ms Q-T Interval : 314 ms QTC Calculation(Bazett) : 409 ms Calculated P [place] : 47 degrees Calculated R [place] : 5 degrees Calculated T [place] : 67 degrees Sinus tachycardia Low voltage QRS Incomplete right bundle branch block Borderline ECG 1209 Confirmed by HELGA PDAILLA M.D. ([id number]), school photograph editor ALEN BARTH ([id number]) on 03/25/2023 2:04:25 PM NAME : KANDICE POLANCO PID : [id number] : 1980 Gender : Male Race : ORD : [id number] Procedure Date : Mar 25 2023 12:09:58 Edit Date : Mar 25 2023 14:04:29 Diagnosis: Sinus tachycardia Low voltage QRS Incomplete right bundle branch block Borderline ECG 1209 Confirmed by HELGA PADILLA M.D. ([id number]), school photograph editor ALEN BARTH ([id number]) on 03/25/2023 2:04:25 PM Test Reason : Arrhythmia Location : 302 : ED ED Overread By : HELGA PADILLA M.D. Edited By : ALEN BARTH Referred By : , Acquired by : , [facility] ED NOTEon 03-25-2023 ED NOTE HNO ID: [id number] Author: Sol Vaughan RN Service: ? Author Type: Registered Nurse Type: ED Notes Filed: 03/25/2023 11:58 AM Note Text: Bed: ED-12 Expected date: 03/25/23 Expected time: 11:42 AM Means of arrival: Comments: SI [facility] ED NOTE HNO ID: [id number] Author: Martha Desai RN Service: ? Author Type: Registered Nurse Type: ED Notes Filed: 03/25/2023 12:11 PM Note Text: Belongings searched by security and stored at nursing desk [facility] ED NOTE HNO ID: [id number] Author: Martha Desai RN Service: ? Author Type: Registered Nurse Type: ED Notes Filed: 03/25/2023 2:01 PM Note Text: Patient reports he drinks about 8, 25 ounce beers a day. States his last drink was this morning which he vomited. Reports stopped his zyprexa x 2 weeks ago since he ran out of it. Reports he was taking double the dose prior [facility] ED NOTE HNO ID: [id number] Author: Martha Desai RN Service: ? Author Type: Registered Nurse Type: ED Notes Filed: 03/25/2023 1:46 PM Note Text: Patient talking with central intake on the cordless phone [facility] ED NOTE HNO ID: [id number] Author: Martha Desai RN Service: ? Author Type: Registered Nurse Type: ED Notes Filed: 03/25/2023 3:19 PM Note Text: Episode of vomiting - MD aware [facility] ED NOTE HNO ID: [id number] Author: Catrina Rayo RN Service: ? Author Type: Registered Nurse Type: ED Notes Filed: 03/25/2023 4:47 PM Note Text: Attempted to give report, nurse said she will call me back. [facility] ED NOTE HNO ID: [id number] Author: Catrina Rayo RN Service: ? Author Type: Registered Nurse Type: ED Notes Filed: 03/25/2023 5:16 PM Note Text: Report given to Jailene RIVERA [facility] ED NOTE HNO ID: [id number] Author: Catrina Rayo RN Service: ? Author Type: Registered Nurse Type: ED Notes Filed: 03/25/2023 5:26 PM Note Text: Normal [facility] ED PROV NOTEon 03-25-2023 ED PROV NOTE HNO ID: [id number] Author: Louise Figueroa DO Service: Emergency Medicine Author Type: Physician Type: ED Provider Notes Filed: 03/25/2023 3:41 PM Note Text: ED Provider Note Patient Name: Kandice Polanco : 1980 SERVICE DATE: 03/25/23 History Patient presents with: Suicidal Ideation: Pt wanted to hang himself last night and this am. Withdrawing for a sleep med and alcohol Patient is a 42-year-old male with a past medical history of hypertension, bipolar disorder who presents today with suicidal ideation. Patient states that he has a recent history of admission at [facility] for overuse of his Zyprexa, EtOH use. Patient was discharged yesterday. Patient states that last evening he drank 6 tall beers. Patient also had a beer this morning. He did have an episode of vomiting. Patient was noting suicidal ideation, stating he wanted to hang himself last evening and this morning. Patient states that he does have a history of alcohol withdrawal. He denies withdrawal seizures in the past. He currently states that he wants his pain to end. He states that since being off the Zyprexa he is using the alcohol to help with his thoughts. He denies fever, chills, chest pain, abdominal pain. PAST MEDICAL HISTORY Diagnosis Date Hypertension Psychiatric disorder History reviewed. No pertinent surgical history. No family history on file. Social History Tobacco Use Smoking status: Never Smokeless tobacco: Not on file Vaping Use Vaping Use: current everyday user Substance and Sexual Activity Alcohol use: Yes Drug use: Yes Types: Marijuana Sexual activity: Not on file ALLERGIES Allergen Reactions Bactrim [Sulfametho* Other: See Comments Codeine Other: See Comments Erythromycin Other: See Comments Penicillins Other: See Comments Review of Systems Constitutional: Negative for chills and fever. Respiratory: Negative for shortness of breath. Cardiovascular: Negative for chest pain. Gastrointestinal: Positive for nausea and vomiting. Negative for abdominal pain. Psychiatric/Behavioral: Positive for suicidal ideas. All other systems reviewed and are negative. Physical Exam Vitals [03/25/23 1145] BP Pulse Temp Temp src Resp SpO2 Weight Height 127/75 (!) 116 36.9 ?C (98.5 ?F) Temporal 20 95 % 94.7 kg (208 lb 12.4 oz) 1.753 m (5' 9 ) Physical Exam Vitals and nursing note reviewed. Constitutional: Appearance: Normal appearance. HENT: Head: Normocephalic and atraumatic. Cardiovascular: Rate and Rhythm: Regular rhythm. Tachycardia present. Heart sounds: Normal heart sounds. Pulmonary: Effort: Pulmonary effort is normal. Breath sounds: Normal breath sounds. Abdominal: Palpations: Abdomen is soft. Tenderness: There is no abdominal tenderness. Musculoskeletal: General: Normal range of motion. Cervical back: Normal range of motion and neck supple. Skin: General: Skin is warm and dry. Neurological: General: No focal deficit present. Mental Status: He is alert. Psychiatric: Mood and Affect: Mood normal. Diagnostic Testing ED Labs Ordered and Reviewed COMP METABOLIC PANEL - Abnormal; Notable for the following components: Result Value Ref Range AST 70 (*) 14 - 40 U/L ALT 64 (*) 10 - 54 U/L Glucose 138 (*) 74 - 99 mg/dL CO2 21 (*) 22 - 30 mmol/L All other components within normal limits URINALYSIS WITH MICROSCOPIC, REFLEX CULTURE - Abnormal; Notable for the following components: Casts, Hyaline 4-10 /LPF (*) 0 /LPF All other components within normal limits TOX SCREEN ROUT UR - Abnormal; Notable for the following components: Amphetamines Urine Preliminary positive (*) Negative Cannabinoids, Urine Preliminary positive (*) Negative Ethanol, Urine 270 (*) <11 mg/dL All other components within normal limits Narrative: Immunoassay screen only. Cross reactivity with other substances can occur with immunoassay screening. Detection of any drug(s) in this urine toxicology panel is presumptive only. These tests are for medical purposes only and should not be used for compliance monitoring, legal, or forensic use. Samples should be within normal physiological conditions (e.g. pH). This assay does not include adulteration/specimen validity testing. In clinical settings, confirmatory testing is at the practitioner's discretion [1]. If clinically indicated, confirmation by high specificity, quantitative methodology, which includes adulteration/specimen validity testing, may be requested on the same specimen through Client Services ([phone]) if contacted within 48 hours of initial testing. [1]Substance Abuse and Mental Health Services Administration (2012). Clinical Drug Testing in Primary Care Technical Assistance Publication Series 32. Department of Health and Human Services, [place], p.10. ALCOHOL/ETHANOL BLD - Abnormal; Notable for the following components: Ethanol 206 (*) <11 mg/dL All other comp (more content not included)... Normal [facility] Ethanol SerPl-mCncon 023 Ethanol [Mass/Vol] 206 mg/dL High <11 [facility] Comment on above: Order Comment: Speci men Type: BLOOD SPECIMENOrdering Facility: [facility] Address: [address] [place] [address] Result Comment: Valu es > 80 mg/dL may indicate intoxication Performed By: #### 5 643-2 ####[facility] LABORATORYCLIA [id number] [place] [address] [place] HISTORY PHYSICALon HISTORY PHYSICAL HNO ID: [id number] Author: Noreen Reyes MD Service: Hospital Medicine Author Type: Physician Type: HANDP Filed: 03/25/2023 3:39 PM Note Text: DEPARTMENT OF HOSPITAL MEDICINE HISTORY AND PHYSICAL EXAM SERVICE DATE: 03/25/2023 Code Status: Not on file SERVICE TIME: 3:29 PM Primary Care Physician: Shakeel Kaye, NIGHT AND WEEKEND COVERAGE: JUNIOR COVERAGE: Days: [phone], please contact via [employer] Nights: [phone] - floor: please page Hospitalist night cover [phone] - 4th floor: please page Hospitalist night cover [phone] - 5th floor: please page Hospitalist night cover [phone] Subjective CHIEF COMPLAINT: suicidal ideation, alcohol intoxication HPI: This is a 42 year old male who presents with pmh of alcohol addiction, marijuana vaping daily, recently DC from inpatient addiction program on Saturday after 5 days detox program. Went home with new regimen of medications. Patient did not get any of them for 12 hours and decided to vape about 12-20 times in a day and drink 8 large cans of beer, then developed n-vomiting once and ideas of dying and ' hanging himself although this ideas are not active at this precise moment. He explains that he was stable until 3-4 weeks ago when he lost his pet and his father got sick (he is better now) and this triggered increase ingestion of alcohol and double dosing of zyprexa using 1 month worth in 2 weeks. At this moment no hallucinations or psychosis, still thoughts but no planning. States that he is anxious and has heartburn. PAST MEDICAL HISTORY Diagnosis Date Hypertension Psychiatric disorder History reviewed. No pertinent surgical history. No family history on file. Social History Tobacco Use Smoking status: Never Vaping Use Vaping Use: current everyday user Substance Use Topics Alcohol use: Yes Drug use: Yes Types: Marijuana PRIOR TO ADMISSION MEDICATIONS: (Not in a hospital admission) ALLERGIES Allergen Reactions Bactrim [Sulfametho* Other: See Comments Codeine Other: See Comments Erythromycin Other: See Comments Penicillins Other: See Comments REVIEW OF SYSTEM: All 12 review of systems evaluated and negative but the ones in HPI Objective PHYSICAL EXAM: BP 123/77 Pulse 78 Temp (Src) 97.8 (Oral) Resp 18 Ht 5' 9 (1.75m) Wt 208 lb 12.4 oz (94.7kg) SpO2 96% BMI 30.82 kg/(m2). O2 Therapy: Room Air Physical Exam Performed: Awake, alert, mucosa moist, lungs clear to auscultation no crackles no wheezes or rhonchi, cardiac sounds rrr abdomen soft non tender or distended bs ok no leg edema, motor 5/5 upper and lower. Lines, Drains, and Airways Line Duration Peripheral 03/25/23 1220 [facility] Short Right Forearm 20 Gauge <1 day Peripheral 03/25/23 1255 [facility] Short Left Antecubital 22 Gauge <1 day Reviewed lines and needs to be continued: REASONS: Intravenous fluids DATA: Diagnostic tests reviewed for today's visit: Most recent labs Assessment/Plan Problem List Alcohol intoxication with moderate or severe use disorder, with unspecified complication (HCC) (POA: Yes) HOSPITAL COURSE: Kandice Polanco is a 42 year old male presented with past medical history of alcohol addiction, MJ addiction. Principal Problem: Alcohol intoxication with moderate or severe use disorder, with unspecified complication (HCC) IV fluids CIWA protocol LFTs normal. Needs inpatient rehabilitation for alcohol addiction Suicidal ideation/Anxiety Sitter tonight for safety purposes until seen by psychiatry Lexapro/cymbalta home dose Increase gabapentin to tid 100 mg Hydroxyzine prn anxiety Trazodone at bed time. Psychiatry consult. Nausea-epigastric discomfort Related to vaping most likely PPI Counseled in not vaping. Medication Reconciliation: Completed Medication and Non-Pharmacologic VTE Prophylaxis/Anticoagulan ts VTE Prophylaxis: VTE prophylaxis appropriate Disposition: To be determined Plan of care discussed with Provider, RN, Patient Plan communicated to: friend in the room. SIGNATURE: Noreen Reyes MD PATIENT NAME: Kandice Polanco DATE: March 25, 2023 TIME: 3:29 PM Normal [facility] SARS-CoV-2 RNA Resp Ql TACOS+p robeon 03-25-2023 SARS-CoV-2 (COVID-19) RNA TACOS+probe Ql (Resp) COVID 19 RESULT: Not detected The method used is RT-PCR or an equivalent NAAT method. Reference Range(the expected result in uninfected individuals): Not detected Normal [facility] Comment on above: Performed By: #### 9 4500-6 ####[facility] [id number] [address] OF [place] TOX SCREEN ROUT URon 023 Amphetamines Confirm (U) [Mass/Vol] Positive Abnormal Negative [facility] Comment on above: Order Comment: Speci men Type: URINE SPECIMENOrdering Facility: [facility] Address: [address] [place] [address] Result Comment: Cuto ff threshold at 1000 ng/mL. Performed By: #### U TOX2 ####[facility] [id number] [place] [address] [place] BARBITURATES, URINE Negative Normal Negative [facility] Comment on above: Order Comment: Speci men Type: URINE SPECIMENOrdering Facility: [facility] Address: [address] [address] Result Comment: Cuto ff threshold at 200 ng/mL. Performed By: #### U TOX2 ####[facility] [id number] [place] [address] [place] BENZODIAZEPINES, UR Negative Normal Negative [facility] Comment on above: Order Comment: Speci men Type: URINE SPECIMENOrdering Facility: [facility] Address: [address] [address] Result Comment: Cuto ff threshold at 200 ng/mL. Performed By: #### U TOX2 ####[facility] [id number] [place] [address] [place] CANNABINOIDS,URINE Positive Abnormal Negative [facility] Comment on above: Order Comment: Speci men Type: URINE SPECIMENOrdering Facility: [facility] Address: [address] [place] [address] Result Comment: Cuto ff threshold at 50 ng/mL. Performed By: #### U TOX2 ####[facility] [id number] [place] [address] [place] Cocaine Ql (U) Negative Normal Negative [facility] Comment on above: Order Comment: Speci men Type: URINE SPECIMENOrdering Facility: [facility] Address: [address] [place] [address] Result Comment: Cuto ff threshold at 300 ng/mL. Performed By: #### U TOX2 ####[facility] [id number] [place] [address] [place] Ethanol (U) [Mass/Vol] 270 mg/dL High <11 [facility] Comment on above: Order Comment: Speci men Type: URINE SPECIMENOrdering Facility: [facility] Address: [address] [place] [address] Performed By: #### U TOX2 ####[facility] [id number] [place] [address] [place] Opiates Screen Ql (U) Negative Normal Negative [facility] Comment on above: Order Comment: Speci men Type: URINE SPECIMENOrdering Facility: [facility] Address: [address] [place] [address] Result Comment: Cuto ff threshold at 300 ng/mL. Performed By: #### U TOX2 ####[facility] [id number] [place] [address] [place] oxyCODONE cutoff Screen (U) [Mass/Vol] Negative Normal Negative [facility] Comment on above: Order Comment: Speci men Type: URINE SPECIMENOrdering Facility: [facility] Address: [address] [address] Result Comment: Cuto ff threshold at 100 ng/mL. Performed By: #### U TOX2 ####[facility] [id number] [address] [place] Phencyclidine Ql (U) Negative Normal Negative [facility] Comment on above: Order Comment: Speci men Type: URINE SPECIMENOrdering Facility: [facility] Address: [address] [address] Result Comment: Cuto ff threshold at 25 ng/mL. Performed By: #### U TOX2 ####[facility] [id number] [address] [place] Urinalysis complete panel (U )on 03-25-2023 Bilirubin Ql (U) Negative Normal Negative [facility] Comment on above: Order Comment: Speci men Type: URINE SPECIMENOrdering Facility: [facility] Address: [address] [place] [address] Performed By: #### 2 4356-8 ####[facility] [id number] [address] [place] Clarity (Unsp spec) Clear Normal Clear [facility] Comment on above: Order Comment: Speci men Type: URINE SPECIMENOrdering Facility: [facility] Address: [address] [address] Performed By: #### 2 4356-8 ####[facility] [id number] [address] [place] Color (U) Light Yellow Normal yellow [facility] l Comment on above: Order Comment: Speci men Type: URINE SPECIMENOrdering Facility: [facility] Address: [address] [address] Performed By: #### 2 4356-8 ####[facility] [id number] [place] [address] [place] Epithelial cells LM.HPF (Urine sed) [#/Area] Few Normal [facility] Comment on above: Order Comment: Speci men Type: URINE SPECIMENOrdering Facility: [facility] Address: [address] [address] Performed By: #### 2 4356-8 ####[facility] [id number] [place] [address] [place] Glucose Test strip (U) [Mass/Vol] Negative Normal Trace, Negative [facility] Comment on above: Order Comment: Speci men Type: URINE SPECIMENOrdering Facility: [facility] Address: [address] [place] [address] Performed By: #### 2 4356-8 ####[facility] [id number] [place] [address] [place] Hemoglobin Ql (U) Negative Normal Negative, Trace [facility] Comment on above: Order Comment: Speci men Type: URINE SPECIMENOrdering Facility: [facility] Address: [address] [place] [address] Performed By: #### 2 4356-8 ####[facility] [id number] [place] [address] [place] Hyaline casts (Urine sed) [#/Area] 4-10 /LPF Abnormal 0 /LPF [facility] Comment on above: Order Comment: Speci men Type: URINE SPECIMENOrdering Facility: [facility] Address: [address] [address] Performed By: #### 2 4356-8 ####[facility] [id number] [address] OF [place] Ketones Ql (U) Negative Normal Negative, Trace [facility] Comment on above: Order Comment: Speci men Type: URINE SPECIMENOrdering Facility: [facility] Address: [address] [address] Performed By: #### 2 4356-8 ####[facility] [id number] [address] [place] Leukocyte esterase Test strip Ql (U) Negative Normal Negative, 25 Fannie/uL [facility] Comment on above: Order Comment: Speci men Type: URINE SPECIMENOrdering Facility: [facility] Address: [address] [place] [address] Performed By: #### 2 4356-8 ####[facility] [id number] [place] [address] [place] Nitrite Ql (U) Negative Normal Negative [facility] Comment on above: Order Comment: Speci men Type: URINE SPECIMENOrdering Facility: [facility] Address: [address] [place] [address] Performed By: #### 2 4356-8 ####[facility] [id number] [place] [address] [place] pH (U) 5.5 [pH] Normal 5.0-8.0 [facility] Comment on above: Order Comment: Speci men Type: URINE SPECIMENOrdering Facility: [facility] Address: [address] [place] [address] Performed By: #### 2 4356-8 ####[facility] [id number] [place] [address] [place] Protein (U) [Mass/Vol] Negative Normal Trace, Negative [facility] Comment on above: Order Comment: Speci men Type: URINE SPECIMENOrdering Facility: [facility] Address: [address] [place] [address] Performed By: #### 2 4356-8 ####[facility] [id number] [place] [address] [place] RBC LM.HPF (Urine sed) [#/Area] 0-3 /HPF Normal 0-3 /HPF [facility] Comment on above: Order Comment: Speci men Type: URINE SPECIMENOrdering Facility: [facility] Address: [address] [address] Performed By: #### 2 4356-8 ####[facility] [id number] [place] [id number] [place] Specific gravity (U) [Rel density] 1.013 Normal 1.005-1.030 [facility] Comment on above: Order Comment: Speci men Type: URINE SPECIMENOrdering Facility: [facility] Address: [address] [place] [address] Performed By: #### 2 4356-8 ####[facility] [id number] [place] [id number] [place] Urobilinogen Ql (U) Normal Normal Negative [facility] Comment on above: Order Comment: Speci men Type: URINE SPECIMENOrdering Facility: [facility] Address: [address] [place] [address] Performed By: #### 2 4356-8 ####[facility] [id number] [place] [id number] [place] WBC LM.HPF (Urine sed) [#/Area] 0-5 /HPF Normal 0-5 /HPF [facility] Comment on above: Order Comment: Speci men Type: URINE SPECIMENOrdering Facility: [facility] Address: [address] [place] [address] Performed By: #### 2 4356-8 ####[facility] [id number] [place] [id number] [place] ECG 12 lead ECGon 03-21-2023 ECG 12 lead ECG [facility] [place] [address] Electrocardiograph Report Signed Patient: Kandice Polanco MR#: [id number] : 1980 Acct:[id number] Age/Sex: 42 / M ADM Date: 03/20/23 Loc: Room: [address] [place] [address] Type: ADM IN Attending Dr: William Vann MD Ordering Provider: Dwain Vann MD Date of Service: 03/21/23 ECG/ECG 12 lead ECG: use of antipsychotics Copies to: Test Reason : Blood Pressure : / mmHG Vent. Rate : 057 BPM Atrial Rate : 057 BPM P-R Int : 154 ms QRS Dur : 096 ms QT Int : 402 ms P-R-T Axes : 053 006 058 degrees QTc Int : 391 ms Sinus bradycardia Otherwise normal ECG No previous ECGs available Confirmed by SADIA DUPONT MD ([id number]) on 03/22/2023 8:06:49 AM Referred By: Electronically Signed By:SADIA DUPONT MD Transcribed By: MUS Signed By Sadia Dupont MD 0806 Normal [facility] Alanine aminotransferase [En zymatic activity/volume] in Serum or PlasmaOrdered By: Mervin Palencia on 03-20-2023 ALT [Catalytic activity/Vol] 39 U/L 7-52 [facility] Albumin [Mass/volume] in Ser um or Plasma by Bromocresol green (BCG) dye binding methoOrdered By: Mervin Palencia on 03-20-2023 Albumin BCG dye [Mass/Vol] 4.2 g/dL 3.5-5.7 [facility] Alkaline phosphatase [Enzyma tic activity/volume] in Serum or PlasmaOrdered By: Mervin Palencia on 03-20-2023 ALP [Catalytic activity/Vol] 94 U/L 34-104 [facility] Amphetamine Screen Ql (U)Ord ered By: Mervin Palencia on 03-20-2023 Amphetamines Ql (U) Positive Negative [facility] Aspartate aminotransferase [ Enzymatic activity/volume] in Serum or PlasmaOrdered By: Mervin Palencia on 03-20-2023 AST [Catalytic activity/Vol] 49 U/L 13-39 [facility] Automated erythrocytes count in urine sediment (number/area)Ordered By: Mervin Palencia on 03-20-2023 RBC Auto (Urine sed) [#/Area] 0-1 [HPF] 0-4 [facility] Automated leukocytes count i n urine sediment (number/area)Ordered By: Mervin Palencia on 03-20-2023 WBC Auto (Urine sed) [#/Area] 0-1 [HPF] 0-4 [facility] Barbiturates [Presence] in U rine by Screen methodOrdered By: Mervin Palencia on 03-20-2023 Barbiturates Screen Ql (U) Negative Negative [facility] Basophils Auto (Bld) [#/Vol] Ordered By: Mervin Palencia on 03-20-2023 Basophils (Bld) [#/Vol] 0.1 10*3/uL 0.0-0.2 [facility] Basophils/100 WBC Auto (Bld) Ordered By: Mervin Palencia on 03-20-2023 Basophils/100 WBC (Bld) 0.8 % . [facility] Benzodiazepines Screen Ql (U )Ordered By: Mervin Palencia on 03-20-2023 Benzodiazepines Ql (U) Negative Negative [facility] Benzoylecgonine [Presence] i n Urine by Screen methodOrdered By: Mervin Palencia on 03-20-2023 Benzoylecgonine Screen Ql (U) Negative Negative [facility] Bilirubin Test strip Ql (U)O rdered By: Mervin Palencia on 03-20-2023 Bilirubin Ql (U) Negative Negative [facility] Bilirubin.total [Mass/volume ] in Serum or PlasmaOrdered By: Mervin Palencia on 03-20-2023 Bilirubin [Mass/Vol] 0.5 mg/dL 0.3-1.0 [facility] Calcium [Mass/volume] in Ser um or PlasmaOrdered By: Mervin Palencia on 03-20-2023 Calcium [Mass/Vol] 8.6 mg/dL 8.6-10.3 [facility] Cannabinoids [Presence] in U rine by Screen methodOrdered By: Mervin Palencia on 03-20-2023 Cannabinoids Screen Ql (U) Positive Negative [facility] Comment on above: These are unconfirme d results and should not be used for legal purposes. Drug Cut-Off Concentration: AMPH 1000 ng/mL ELISA 200 ng/mL PETE 200 ng/mL COCM 300 ng/mL OP 300 ng/mL PCP 25 ng/mL THC 20 ng/mL Carbon dioxide, total [Moles /volume] in Serum or PlasmaOrdered By: Mervin Palencia on 03-20-2023 CO2 [Moles/Vol] 23.2 mmol/L 21.0-31.0 [facility] Chloride [Moles/volume] in S patrick or PlasmaOrdered By: Mervin Palencia on 03-20-2023 Chloride [Moles/Vol] 100 mmol/L 98-107 [facility] Cholesterol [Mass/volume] in Serum or PlasmaOrdered By: Dwain Vann on 03-20-2023 Cholesterol [Mass/Vol] 183 mg/dL 140-200 [facility] Comment on above: Chol less than 200 m g/dl low riskChol 201-239 mg/dl borderline riskChol 240 mg/dl and greater high risk Cholesterol in LDL Calc [Mas s/Vol]Ordered By: Dwain Vann on 03-20-2023 Cholesterol in LDL [Mass/Vol] 81 mg/dL 0-100 [facility] Comment on above: LDL ATP III CLASSIFI CATIONLDL less than 100 mg/dL OptimalLDL 100-129 mg/dL Near or above optimalLDL 130-159 mg/dL Borderline highLDL 160-189 mg/dL HighLDL greater than 189 mg/dL Very high Cholesterol in VLDL Calc [Ma ss/Vol]Ordered By: Dwain Vann on 03-20-2023 Cholesterol in VLDL [Mass/Vol] 35 mg/dL [facility] Color Auto (U)Ordered By: Gio Palencia on 03-20-2023 Color (U) Yellow Yellow [facility] Complete Blood Count Auto Di ffon 03-20-2023 Basophils (Bld) [#/Vol] 0.1 10*3/uL Normal 0.0-0.2 [facility] Comment on above: Result Comment: PERF ORMED BY: [place] [address] PATHOLOGIST [employer]MENT ENGINEER KAJAL DURON M.D. Performed By: #### C MP, ETOH, CBC #### [facility] [address] Basophils/100 WBC (Bld) 0.8 % Normal . [facility] Comment on above: Performed By: #### C MP, ETOH, CBC #### [facility] [address] Eosinophils (Bld) [#/Vol] 0.0 10*3/uL Normal 0.0-0.45 [facility] Comment on above: Performed By: #### C MP, ETOH, CBC #### [place] [address] [place] Eosinophils/100 WBC (Bld) 0.3 % Normal . [facility] Comment on above: Performed By: #### C MP, ETOH, CBC #### [address] Erythrocyte distribution width (RBC) [Ratio] 13.7 % Normal 12.0-14.8 [facility] Comment on above: Performed By: #### C MP, ETOH, CBC #### [address] Hematocrit (Bld) [Volume fraction] 41.6 % Normal 38.8-50.0 [facility] Comment on above: Performed By: #### C MP, ETOH, CBC #### [address] Hemoglobin (Bld) [Mass/Vol] 14.5 g/dL Normal 13.0-17.0 [facility] Comment on above: Performed By: #### C MP, ETOH, CBC #### [place] [address] [place] Lymphocytes (Bld) [#/Vol] 2.4 10*3/uL Normal 1.00-4.8 [facility] Comment on above: Performed By: #### C MP, ETOH, CBC #### [place] [address] [place] Lymphocytes/100 WBC (Bld) 29.6 % Normal . [facility] Comment on above: Performed By: #### C MP, ETOH, CBC #### [address] MCH (RBC) [Entitic mass] 34.1 pg Normal 27.5-35.2 [facility] Comment on above: Performed By: #### C MP, ETOH, CBC #### [facility] [address] MCV (RBC) [Entitic vol] 98.0 fL Normal 83.5-101 [facility] Comment on above: Performed By: #### C MP, ETOH, CBC #### [address] Mean Corpuscular HGB Conc 34.8 g/dL Normal 32.5-35.6 [facility] Comment on above: Performed By: #### C MP, ETOH, CBC #### [address] Monocytes (Bld) [#/Vol] 0.6 10*3/uL Normal 0.0-0.8 [facility] Comment on above: Performed By: #### C MP, ETOH, CBC #### [address] Monocytes/100 WBC (Bld) 15.48 % Normal 0.00-20.00 [facility] Comment on above: Performed By: #### C MP, ETOH, CBC #### [address] Monocytes/100 WBC (Bld) 7.3 % Normal . [facility] Comment on above: Performed By: #### C MP, ETOH, CBC #### [address] Neutrophils (Bld) [#/Vol] 5.0 10*3/uL Normal 1.8-7.7 [facility] Comment on above: Performed By: #### C MP, ETOH, CBC #### [address] Neutrophils/100 WBC (Bld) 62.0 % Normal . [facility] Comment on above: Performed By: #### C MP, ETOH, CBC #### [address] NRBC% 0.2 /100{WBC} Normal 0-0.5 [facility] Comment on above: Performed By: #### C MP, ETOH, CBC #### [address] Platelet mean volume (Bld) [Entitic vol] 7.1 fL Normal 6.6-10.1 [facility] Comment on above: Performed By: #### C MP, ETOH, CBC #### [address] Platelets (Bld) [#/Vol] 323 10*3/uL Normal 150-450 [facility] Comment on above: Performed By: #### C MP, ETOH, CBC #### [address] RBC (Bld) [#/Vol] 4.24 10*6/uL Normal 3.90-5.60 [facility] Comment on above: Performed By: #### C MP, ETOH, CBC #### [address] WBC (Bld) [#/Vol] 8.0 10*3/uL Normal 4.1-10.5 [facility] Comment on above: Performed By: #### C MP, ETOH, CBC #### [address] Comprehensive Metabolic Pane jordan 03-20-2023 Albumin [Mass/Vol] 4.2 g/dL Normal 3.5-5.7 [facility] Comment on above: Performed By: #### L IPID, TSH3 wRFLX, [id number] #### [address] Albumin/Globulin [Mass ratio] 1.4 {ratio} Normal [facility] Comment on above: Performed By: #### L IPID, TSH3 wRFLX, [id number] #### [address] ALP [Catalytic activity/Vol] 94 U/L Normal 34-104 [facility] Comment on above: Performed By: #### L IPID, TSH3 wRFLX, [id number] #### [facility] [address] ALT [Catalytic activity/Vol] 39 U/L Normal 7-52 [facility] Comment on above: Performed By: #### L IPID, TSH3 wRFLX, [id number] #### [address] Anion gap [Moles/Vol] 17.4 mmol/L High 6.0-15.0 [facility] Comment on above: Performed By: #### L IPID, TSH3 wRFLX, [id number] #### [facility] [address] [place] [address] AST [Catalytic activity/Vol] 49 U/L High 13-39 [facility] Comment on above: Performed By: #### L IPID, TSH3 wRFLX, [id number] #### [address] Bilirubin [Mass/Vol] 0.5 mg/dL Normal 0.3-1.0 [facility] Comment on above: Performed By: #### L IPID, TSH3 wRFLX, [id number] #### [address] Calcium [Mass/Vol] 8.6 mg/dL Normal 8.6-10.3 [facility] Comment on above: Performed By: #### L IPID, TSH3 wRFLX, [id number] #### [place] [address] [place] Chloride [Moles/Vol] 100 mmol/L Normal 98-107 [facility] Comment on above: Performed By: #### L IPID, TSH3 wRFLX, [id number] #### [address] CO2 [Moles/Vol] 23.2 mmol/L Normal 21.0-31.0 [facility] Comment on above: Performed By: #### L IPID, TSH3 wRFLX, [id number] #### [facility] [address] Creatinine [Mass/Vol] 0.91 mg/dL Normal 0.70-1.30 [facility] Comment on above: Performed By: #### L IPID, TSH3 wRFLX, [id number] #### [facility] [address] [place] [address] [place] Creatinine Clr Calc Pharmacy 118.83 [facility] Comment on above: Result Comment: PERF ORMED BY: [place] [address] PATHOLOGIST [employer]MENT ENGINEER KAJAL DURON M.D. Performed By: #### L IPID, TSH3 wRFLX, [id number] #### [address] GFR/1.73 sq M.predicted MDRD (S/P/Bld) [Vol rate/Area] mL/min/{1.73_m2} [facility] Comment on above: Performed By: #### L IPID, TSH3 wRFLX, [id number] #### [facility] [address] [place] [address] Globulin (S) [Mass/Vol] 3.0 g/dL [facility] Comment on above: Performed By: #### L IPID, TSH3 wRFLX, [id number] #### [address] Glucose [Mass/Vol] 87 mg/dL Normal 70-100 [facility] Comment on above: Result Comment: [place] Glucose Reference Range is dependent on time and content of last meal. Glucose of more than 200 mg/dL in a nonstressed, ambulatory subject supports the diagnosis of Diabetes Mellitus. ADA recommended reference range Performed By: #### L IPID, TSH3 wRFLX, [id number] #### [facility] [address] [place] [address] Potassium [Moles/Vol] 3.6 mmol/L Normal 3.5-5.1 [facility] Comment on above: Performed By: #### L IPID, TSH3 wRFLX, [id number] #### [facility] [address] [place] [address] Protein [Mass/Vol] 7.2 g/dL Normal 6.4-8.9 [facility] Comment on above: Performed By: #### L IPID, TSH3 wRFLX, [id number] #### [facility] [address] [place] [address] Sodium [Moles/Vol] 137 mmol/L Normal 136-145 [facility] Comment on above: Performed By: #### L IPID, TSH3 wRFLX, [id number] #### [address] Urea nitrogen [Mass/Vol] 11 mg/dL Normal 7-25 [facility] Comment on above: Performed By: #### L IPID, TSH3 wRFLX, [id number] #### [address] Creatinine [Mass/volume] in Serum or PlasmaOrdered By: Mervin Palencia on 03-20-2023 Creatinine [Mass/Vol] 0.91 mg/dL 0.70-1.30 [facility] Dipstick and Microscopicon 0 03-20-2023 Appearance (U) Clear Normal Clear [facility] Comment on above: Order Comment: Name Collection Type:: Clean-Voided Midstream Performed By: #### U RDS, ADDONUAPLUS #### [place] [address] [place] Bacteria,Urine None Seen Normal None Seen [facility] Comment on above: Order Comment: Name Collection Type:: Clean-Voided Midstream Performed By: #### U RDS, ADDONUAPLUS #### [place] [address] [place] Bilirubin,Urine Negative Normal Negative [facility] Comment on above: Order Comment: Name Collection Type:: Clean-Voided Midstream Performed By: #### U RDS, ADDONUAPLUS #### [place] [address] [place] Color (U) Yellow Normal Yellow [facility] Comment on above: Order Comment: Name Collection Type:: Clean-Voided Midstream Performed By: #### U RDS, ADDONUAPLUS #### [facility] [address] [place] [address] [place] Glucose Ql (U) Normal Normal Normal [facility] Comment on above: Order Comment: Name Collection Type:: Clean-Voided Midstream Performed By: #### U RDS, ADDONUAPLUS #### [facility] [address] [place] [address] [place] Hyaline Casts,Urine 0-8 Normal 0-8 [facility] Comment on above: Order Comment: Name Collection Type:: Clean-Voided Midstream Result Comment: PERF ORMED BY: [place] [address] PATHOLOGIST [employer] ENGINEER KAJAL DURON M.D. Performed By: #### U RDS, ADDONUAPLUS #### [facility] [address] [place] [address] [place] Ketones Ql (U) 1+ High Negative [facility] Comment on above: Order Comment: Name Collection Type:: Clean-Voided Midstream Performed By: #### U RDS, ADDONUAPLUS #### [facility] [address] [place] [address] [place] Leukocyte esterase Test strip Ql (U) 1+ High Negative [facility] Comment on above: Order Comment: Name Collection Type:: Clean-Voided Midstream Performed By: #### U RDS, ADDONUAPLUS #### [facility] [address] [place] [address] [place] Nitrite,Urine Negative Normal Negative [facility] Comment on above: Order Comment: Name Collection Type:: Clean-Voided Midstream Performed By: #### U RDS, ADDONUAPLUS #### [facility] [address] [place] [address] [place] Occult Blood,Urine Negative Normal Negative [facility] Comment on above: Order Comment: Name Collection Type:: Clean-Voided Midstream Result Comment: PERF ORMED BY: [address] [place] [address] PATHOLOGIST BUILD AND DEPLOYMENT ENGINEER KAJAL DURON M.D. Performed By: #### U RDS, ADDONUAPLUS #### [address] pH (U) 5.0 [pH] Normal 5.0-9.0 [facility] Comment on above: Order Comment: Name Collection Type:: Clean-Voided Midstream Performed By: #### U RDS, ADDONUAPLUS #### [address] Protein,Urine Negative Normal Negative [facility] Comment on above: Order Comment: Name Collection Type:: Clean-Voided Midstream Performed By: #### U RDS, ADDONUAPLUS #### [address] RBC LM.HPF (Urine sed) [#/Area] 0 /[HPF] Normal 0-4 [facility] Comment on above: Order Comment: Name Collection Type:: Clean-Voided Midstream Performed By: #### U RDS, ADDONUAPLUS #### [address] Specificy [place],Urine 1.022 Normal 1.001-1.030 [facility] Comment on above: Order Comment: Name Collection Type:: Clean-Voided Midstream Performed By: #### U RDS, ADDONUAPLUS #### [address] Squamous Epithelial Cell,Urine 0-1 Normal 0-2 [facility] Comment on above: Order Comment: Name Collection Type:: Clean-Voided Midstream Performed By: #### U RDS, ADDONUAPLUS #### [address] Urobilinogen,Urine Normal Normal Normal [facility] Comment on above: Order Comment: Name Collection Type:: Clean-Voided Midstream Performed By: #### U RDS, ADDONUAPLUS #### [address] WBC LM.HPF (Urine sed) [#/Area] 0 /[HPF] Normal 0-4 [facility] Comment on above: Order Comment: Name Collection Type:: Clean-Voided Midstream Performed By: #### U RDS, ADDONUAPLUS #### [place] [address] [place] Drug Screen,Urineon 03-20-20 Amphetamine Screen,Urine Positive High Negative [facility] Comment on above: Performed By: #### U RDS, ADDONUAPLUS #### [address] Barbiturate Screen,Urine Negative Normal Negative [facility] Comment on above: Performed By: #### U RDS, ADDONUAPLUS #### [place] [address] [place] Benzodiazepines Screen,Urine Negative Normal Negative [facility] Comment on above: Performed By: #### U RDS, ADDONUAPLUS #### [address] Cannabinoid Screen,Urine Positive High Negative [facility] Comment on above: Result Comment: Thes e are unconfirmed results and should not be used for legal purposes. Drug Cut-Off Concentration: AMPH 1000 ng/mL ELISA 200 ng/mL PETE 200 ng/mL COCM 300 ng/mL OP 300 ng/mL PCP 25 ng/mL THC 20 ng/mL PERFORMED BY: [place] [address] PATHOLOGIST BUILD AND DEPLOYMENT ENGINEER KAJAL DURON M.D. Performed By: #### U RDS, ADDONUAPLUS #### [place] [address] [place] Cocaine Screen,Urine Negative Normal Negative [facility] Comment on above: Performed By: #### U RDS, ADDONUAPLUS #### [place] [address] [place] Opiate Screen,Urine Negative Normal Negative [facility] Comment on above: Performed By: #### U RDS, ADDONUAPLUS #### [place] [address] [place] Phencyclidine Screen,Urine Negative Normal Negative [facility] Comment on above: Performed By: #### U RDS, ADDONUAPLUS #### [facility] [address] [place] [address] [place] Eosinophils Auto (Bld) [#/Vo l]Ordered By: Mervin Palencia on 03-20-2023 Eosinophils (Bld) [#/Vol] 0.0 10*3/uL 0.0-0.45 [facility] Eosinophils/100 WBC Auto (Bl d)Ordered By: Mervin Palencia on 03-20-2023 Eosinophils/100 WBC (Bld) 0.3 % . [facility] Erythrocyte distribution wid th Auto (RBC) [Ratio]Ordered By: Mervin Palencia on 03-20-2023 Erythrocyte distribution width (RBC) [Ratio] 13.7 % 12.0-14.8 [facility] Ethanol [Mass/volume] in Ser um or PlasmaOrdered By: Mervin Palencia on 03-20-2023 Ethanol [Mass/Vol] 144 mg/dL [facility] Ethanol [Mass/Vol] 0.144 % [facility] Ethyl Alcohol Profileon 03-02 Ethanol [Mass/Vol] 144 mg/dL Normal [facility] Comment on above: Performed By: #### L IPID, TSH3 wRFLX, [id number] #### [facility] [address] [place] [address] Percent Ethanol 0.144 % Normal [facility] Comment on above: Result Comment: PERF ORMED BY: [place] [address] PATHOLOGIST BUILD AND DEPLOYMENT ENGINEER KAJAL DURON M.D. Performed By: #### L IPID, TSH3 wRFLX, [id number] #### [place] [address] [place] Globulin Calc (S) [Mass/Vol] Ordered By: Mervin Palencia on 03-20-2023 Globulin (S) [Mass/Vol] 3.0 g/dL [facility] Glucose [Mass/volume] in Ser um or PlasmaOrdered By: Mervin Palencia on 03-20-2023 Glucose [Mass/Vol] 87 mg/dL 70-100 [facility] Comment on above: ADA recommended refe rence rangeRandom Glucose Reference Range is dependent on time and content of last meal. Glucose of more than 200 mg/dL in a nonstressed, ambulatory subject supports the diagnosis of Diabetes Mellitus. Hematocrit Auto (Bld) [Volum e fraction]Ordered By: Mervin Palencia on 03-20-2023 Hematocrit (Bld) [Volume fraction] 41.6 % 38.8-50.0 [facility] Hemoglobin [Mass/volume] in BloodOrdered By: Mervin Palencia on 03-20-2023 Hemoglobin (Bld) [Mass/Vol] 14.5 g/dL 13.0-17.0 [facility] Ketones Auto test strip (U) [Mass/Vol]Ordered By: Mervin Palencia on 03-20-2023 Ketones (U) [Mass/Vol] 1+ Negative [facility] Laboratory - UrinalysisOrder ed By: Mervin Palencia on 03-20-2023 Hyaline casts LM Ql (Urine sed) 0-8 [LPF] 0-8 [facility] Leukocytes [#/volume] correc gisella for nucleated erythrocytes in Blood by Automated counOrdered By: Mervin Palencia on 03-20-2023 WBC corrected for nucl RBC Auto (Bld) [#/Vol] 8.0 10*3/uL 4.1-10.5 [facility] Lipid Panelon 03-20-2023 Cholesterol [Mass/Vol] 183 mg/dL Normal 140-200 [facility] Comment on above: Order Comment: Comme nt use from ER Result Comment: Chol less than 200 mg/dl low risk Chol 201-239 mg/dl borderline risk Chol 240 mg/dl and greater high risk Performed By: #### L IPID, TSH3 wRFLX, [id number] #### [facility] [address] Cholesterol in HDL [Mass/Vol] 67 mg/dL Normal 23-92 [facility] Comment on above: Order Comment: Comme nt use from ER Result Comment: HDL CHOL ATP-III CLASSIFICATION Cardiovascular Risk HDL > or equal to 60 mg/dL LOW HDL < 40 mg/dL HIGH Performed By: #### L IPID, TSH3 wRFLX, [id number] #### [facility] [address] Cholesterol.total/Cho lesterol in HDL [Mass ratio] 2.7 {ratio} Normal <5.0 [facility] Comment on above: Order Comment: Comme nt use from ER Performed By: #### L IPID, TSH3 wRFLX, [id number] #### [facility] [address] LDL Cholesterol,Calculate d 81 mg/dL Normal 0-100 [facility] Comment on above: Order Comment: Comme nt use from ER Result Comment: LDL ATP III CLASSIFICATION LDL less than 100 mg/dL Optimal LDL 100-129 mg/dL Near or above optimal LDL 130-159 mg/dL Borderline high LDL 160-189 mg/dL High LDL greater than 189 mg/dL Very high Performed By: #### L IPID, TSH3 wRFLX, [id number] #### [address] Triglyceride w/Reflex 177 mg/dL High 0-149 [facility] Comment on above: Order Comment: Comme nt use from ER Result Comment: TRIG ATP III CLASSIFICATION TRIG less than 150 mg/dL Normal TRIG 150-199 mg/dL Borderline high TRIG 200-500 mg/dL High TRIG greater than 500 mg/dL Very high Standard traceable to the Center for Disease Conrtrol and Prevention (CDC) test method. Performed By: #### L IPID, TSH3 wRFLX, [id number] #### [facility] [address] [place] [id number] [facility] VLDL CHOLESTEROL 35 mg/dL Normal [facility] Comment on above: Order Comment: Comme nt use from ER Performed By: #### L IPID, TSH3 wRFLX, [id number] #### [facility] [address] [place] [id number] [facility] Lymphocytes Auto (Bld) [#/Vo l]Ordered By: Mervin Palencia on 03-20-2023 Lymphocytes (Bld) [#/Vol] 2.4 10*3/uL 1.00-4.8 [facility] Lymphocytes/100 WBC Auto (Bl d)Ordered By: Mervin Palencia on 03-20-2023 Lymphocytes/100 WBC (Bld) 29.6 % . [facility] MCH Auto (RBC) [Entitic mass ]Ordered By: Mervin Palencia on 03-20-2023 MCH (RBC) [Entitic mass] 34.1 pg 27.5-35.2 [facility] MCHC Auto (RBC) [Mass/Vol]Or dered By: Mervin Palencia on 03-20-2023 MCHC (RBC) [Mass/Vol] 34.8 g/dL 32.5-35.6 [facility] MCV Auto (RBC) [Entitic vol] Ordered By: Mervin Palencia on 03-20-2023 MCV (RBC) [Entitic vol] 98.0 fL 83.5-101 [facility] Monocyte distribution width [Entitic volume] in Blood by AutomatedOrdered By: Mervin Palencia on 03-20-2023 Monocyte distribution width Auto (Bld) [Entitic vol] 15.48 % 0.00-20.00 [facility] Monocytes Auto (Bld) [#/Vol] Ordered By: Mervin Palencia on 03-20-2023 Monocytes (Bld) [#/Vol] 0.6 10*3/uL 0.0-0.8 [facility] Monocytes/100 WBC Auto (Bld) Ordered By: Mervin Palencia on 03-20-2023 Monocytes/100 WBC (Bld) 7.3 % . [facility] Neutrophils Auto (Bld) [#/Vo l]Ordered By: Mervin Palencia on 03-20-2023 Neutrophils (Bld) [#/Vol] 5.0 10*3/uL 1.8-7.7 [facility] Neutrophils/100 WBC Auto (Bl d)Ordered By: Mervin Palencia on 03-20-2023 Neutrophils/100 WBC (Bld) 62.0 % . [facility] Nitrite Test strip Ql (U)Ord ered By: Mervin Palencia on 03-20-2023 Nitrite Ql (U) Negative Negative [facility] No Panel InformationOrdered By: Mervin Palencia on 03-20-2023 Estimated GFR (CKD-EPI) > 60.0 mL/Min [facility] Creatinine Clearance (Chem 118.83 [facility] Nucleated erythrocytes [Pres ence] in Blood by Automated countOrdered By: Mervin Palencia on 03-20-2023 Nucleated RBC Auto Ql (Bld) 0.2 /100{WBC} 0-0.5 [facility] Opiates [Presence] in Urine by Screen methodOrdered By: Mervin Palencia on 03-20-2023 Opiates Screen Ql (U) Negative Negative [facility] Phencyclidine Screen Ql (U)O rdered By: Mervin Palencia on 03-20-2023 Phencyclidine Ql (U) Negative Negative [facility] Platelet mean volume Auto (B ld) [Entitic vol]Ordered By: Mervin Palencia on 03-20-2023 Platelet mean volume (Bld) [Entitic vol] 7.1 fL 6.6-10.1 [facility] Platelets Auto (Bld) [#/Vol] Ordered By: Mervin Palencia on 03-20-2023 Platelets (Bld) [#/Vol] 323 10*3/uL 150-450 [facility] Potassium [Moles/volume] in Serum or PlasmaOrdered By: Mervin Palencia on 03-20-2023 Potassium [Moles/Vol] 3.6 mmol/L 3.5-5.1 [facility] Protein Auto test strip (U) [Mass/Vol]Ordered By: Mervin Palencia on 03-20-2023 Protein (U) [Mass/Vol] Negative Negative [facility] Protein [Mass/volume] in Ser um or PlasmaOrdered By: Mervin Palencia on 03-20-2023 Protein [Mass/Vol] 7.2 g/dL 6.4-8.9 [facility] RBC Auto (Bld) [#/Vol]Ordere d By: eMrvin Palencia on 03-20-2023 RBC (Bld) [#/Vol] 4.24 10*6/uL 3.90-5.60 [facility] Serum or plasma albumin/glob ulin mass ratioOrdered By: Mervin Palencia on 03-20-2023 Albumin/Globulin [Mass ratio] 1.4 {ratio} [facility] Serum or plasma anion gap de terminationOrdered By: Mervin Palencia on 03-20-2023 Anion gap [Moles/Vol] 17.4 mmol/L 6.0-15.0 [facility] Serum or plasma high density lipoprotein (HDL) cholesterol measurementOrdered By: Dwain Vann on 03-20-2023 Cholesterol in HDL [Mass/Vol] 67 mg/dL 23-92 [facility] Comment on above: HDL CHOL ATP-III CLA SSIFICATION Cardiovascular RiskHDL > or equal to 60 mg/dL LOWHDL < 40 mg/dL HIGH Serum or plasma total choles terol/high density lipoprotein (HDL) cholesterol mass ratOrdered By: Dwain Vann on 03-20-2023 Cholesterol.total/Cho lesterol in HDL [Mass ratio] 2.7 {ratio} <5.0 [facility] Sodium [Moles/volume] in Ser um or PlasmaOrdered By: Mervin Palencia on 03-20-2023 Sodium [Moles/Vol] 137 mmol/L 136-145 [facility] Specific gravity Auto test s trip (U) [Rel density]Ordered By: Mervin Palencia on 03-20-2023 Specific gravity (U) [Rel density] 1.022 1.001-1.030 [facility] Squamous epithelial cells de tection in urine sediment by light microscopyOrdered By: Mervin Palencia on 03-20-2023 Epithelial cells.squamous LM Ql (Urine sed) 0-1 [HPF] 0-2 [facility] Thyroid Stim Hormone w/Rflxo n 03-20-2023 Thyroid Stim Hormone w/Rflx 2.14 u[iU]/mL Normal 0.45-5.33 [facility] Comment on above: Order Comment: Comme nt use from ER Performed By: #### L IPID, TSH3 wRFLX, [id number] #### [address] Thyrotropin [Units/volume] i n Serum or PlasmaOrdered By: Dwain Vann on 03-20-2023 TSH Qn 2.14 m[IU]/L 0.45-5.33 [facility] Triglyceride [Mass/volume] i n Serum or PlasmaOrdered By: Dwain Vann on 03-20-2023 Triglyceride [Mass/Vol] 177 mg/dL 0-149 [facility] Comment on above: TRIG ATP III CLASSIF ICATIONTRIG less than 150 mg/dL NormalTRIG 150-199 mg/dL Borderline highTRIG 200-500 mg/dL High TRIG greater than 500 mg/dL Very highStandard traceable to the Center for Disease Conrtrol and Prevention (CDC) test method. Urea nitrogen [Mass/volume] in Serum or PlasmaOrdered By: Mervin Palencia on 03-20-2023 Urea nitrogen [Mass/Vol] 11 mg/dL 7 [facility] Urine bacteria detection by automated methodOrdered By: Mervin Palencia on 03-20-2023 Bacteria Auto Ql (U) None seen None Seen [facility] Urine clarity by refractomet ry automatedOrdered By: Mervin Palencia on 03-20-2023 Clarity Refractometry automated (U) Clear Clear [facility] Urine glucose measurement by automated test strip (mass/volume)Ordered By: Mervin Palencia on 03-20-2023 Glucose Auto test strip (U) [Mass/Vol] Normal mg/dL Normal [facility] Urine hemoglobin detection b y automated test stripOrdered By: Mervin Palencia on 03-20-2023 Hemoglobin Auto test strip Ql (U) Negative Negative [facility] Urine leukocyte esterase det ection by automated test stripOrdered By: Mervin Palencia on 03-20-2023 Leukocyte esterase Auto test strip Ql (U) 1+ Negative [facility] Urobilinogen Auto test strip (U) [Mass/Vol]Ordered By: Mervin Palencia on 03-20-2023 Urobilinogen (U) [Mass/Vol] Normal mg/dL Normal [facility] Vitamin D 25 Hydroxy Totalon 03-20-2023 Vitamin D 25 Hydroxy Total 37.3 ng/mL Normal 30-100 [facility] Comment on above: Order Comment: Comme nt use from ER Result Comment: JENNIFER MIN D STATUS 25(OH)VITAMIN D RANGE (ng/mL) Deficient <20 Insufficient 20 to <30 Sufficient 30 to 100 Reference: Agnes Garcia, Kaye SHELLEY, et al. Evaluation,treatment, and prevention of vitamin D deficiency; an Endocrine Society clinical practice guideline. JCEM. 2010; 96(7):191-. PERFORMED BY: [facility] [address] [place] [address] PATHOLOGIST BUILD AND DEPLOYMENT ENGINEER KAJAL DURON M.D. Performed By: #### L IPID, TSH3 wRFLX, [id number] #### [facility] [address] Vitamin D+Metabolites [Mass/ volume] in Serum or PlasmaOrdered By: Dwain Vann on 03-20-2023 Vitamin D+Metabolites [Mass/Vol] 37.3 ng/mL 30-100 [facility] Comment on above: VITAMIN D STATUS 25( [place])VITAMIN D RANGE (ng/mL) Deficient <20 Insufficient 20 to <30Sufficient 30 to 100Reference: Agnes Garcia, Kaye SHELLEY, et al. Evaluation,treatment, and prevention of vitamin D deficiency; an Endocrine Society clinical practice guideline. JCEM. 2010; 96(7):191-. WBC Auto (Bld) [#/Vol]Ordere d By: Mervin Palencia on 03-20-2023 WBC (Bld) [#/Vol] 8.0 10*3/uL 4.1-10.5 [facility] pH Auto test strip (U)Ordere d By: Mervin Palencia on 03-20-2023 pH (U) 5.0 [pH] 5.0-9.0 [facility] Amphetamine Screen Ql (U)Ord ered By: Jonathan Workman on 01-24-2023 Amphetamines Ql (U) Negative Negative [facility] Barbiturates [Presence] in U rine by Screen methodOrdered By: Jonathan Workman on 01-24-2023 Barbiturates Screen Ql (U) Negative Negative [facility] Benzodiazepines Screen Ql (U )Ordered By: Jonathan Workman on 01-24-2023 Benzodiazepines Ql (U) Negative Negative [facility] Benzoylecgonine [Presence] i n Urine by Screen methodOrdered By: Jnoathan Workman on 01-24-2023 Benzoylecgonine Screen Ql (U) Negative Negative [facility] Cannabinoids [Presence] in U rine by Screen methodOrdered By: Jonathan Workman on 01-24-2023 Cannabinoids Screen Ql (U) Positive Negative [facility] Comment on above: These are unconfirme d results and should not be used for legal purposes. Drug Cut-Off Concentration: AMPH 1000 ng/mL ELISA 200 ng/mL PETE 200 ng/mL COCM 300 ng/mL OP 300 ng/mL PCP 25 ng/mL THC 20 ng/mL Drug Screen,Urineon 01-25-20 23 Amphetamine Screen,Urine Negative Normal Negative [facility] Comment on above: Performed By: #### U RDS #### [place] [address] [place] Barbiturate Screen,Urine Negative Normal Negative [facility] Comment on above: Performed By: #### U RDS #### [facility] [address] [place] [address] [place] Benzodiazepines Screen,Urine Negative Normal Negative [facility] Comment on above: Performed By: #### U RDS #### [place] [address] [place] Cannabinoid Screen,Urine Positive High Negative [facility] Comment on above: Result Comment: Thes e are unconfirmed results and should not be used for legal purposes. Drug Cut-Off Concentration: AMPH 1000 ng/mL ELISA 200 ng/mL PETE 200 ng/mL COCM 300 ng/mL OP 300 ng/mL PCP 25 ng/mL THC 20 ng/mL PERFORMED BY: [place] [address] PATHOLOGIST BUILD AND DEPLOYMENT ENGINEER KAJAL DURON M.D. Performed By: #### U RDS #### [facility] [address] [place] [address] [place] Cocaine Screen,Urine Negative Normal Negative [facility] Comment on above: Performed By: #### U RDS #### [facility] [address] Opiate Screen,Urine Negative Normal Negative [facility] Comment on above: Performed By: #### U RDS #### [facility] [address] [place] [address] Phencyclidine Screen,Urine Negative Normal Negative [facility] Comment on above: Performed By: #### U RDS #### [facility] [address] [place] [address] 01-24-2023 L ---- Specimen: [id number] Received: 01/24/23 Status: RENAE Valdez Num: [id number] Spec Type: Surgical Subm Dr: Jonathan Workman MD Tissues: A Colon Biopsy (RECTAL POLYPS X2) Procedures: MARY/Kareem, Jaqui/Abraham L4 Age/ Patient Sex Location Account Attending Physician Kandice Polanco 42/M [id number] Jonathan Workman MD SPEC NUM: [id number] RECD: 01/24/23 STATUS: RENAE VALDEZ NUM: [id number] AYLIN: 01/24/23 DR: Jonathan Workman MD ENTERED: 01/24/[address] [facility] [address]: SPEC TYPE: Surgical DEPT: S ORDERED: HE/2, Gross/Micro L4 ORDERED: HE/2, Gross/Micro L4 Pathological Diagnosis Rectum, polyps, biopsy: - Fragments of tubular adenoma. - Hyperplastic polyp. Clinical Information Screen Gross Description Received in formalin labeled with the patient's name, number and rectal polyps ?2 are multiple fragments of soft dukes tissue measuring 1.7 x 1.0 x 0.4 cm in aggregate. Entirely submitted in one cassette labeled A1. Microscopic Description Two H E slides reviewed. The microscopic examination confirms the diagnosis. CPT Codes 13142 Specimen: [id number] Received: 01/24/23 Status: JULISSAÁngel Valdez Num: [id number] Spec Type: Surgical Subm Dr: Jonathan Workman MD Tissues: A Colon Biopsy (RECTAL POLYPS X2) Procedures: HE/2, Gross/Micro L4 Patient: Kandice Polanco [id number] (Continued) Signed (signature on file) Jayda Wilson MD 01/25/23 1012 Normal [facility] Opiates [Presence] in Urine by Screen methodOrdered By: Jonathan Workman on 01-24-2023 Opiates Screen Ql (U) Negative Negative [facility] Phencyclidine Screen Ql (U)O rdered By: Jonathan Workman on 01-24-2023 Phencyclidine Ql (U) Negative Negative [facility] HEPATITIS PANEL, GENERALon 0 04-19-2022 HEPATITIS A AB, TOTAL Reactive Abnormal NON-REACTIVE [facility] Comment on above: Order Comment: FASTI NG:NO FASTING: NO Result Comment: For additional information, please refer to http://education.Conference Hound/faq/PCV762 (This link is being provided for informational/ educational purposes only.) Performed By: #### 6 [id number] #### [facility] [address], [address] [place] [id number] Hi Lift Operator: Kaleb Wong MD HEPATITIS B CORE AB TOTAL Non-Reactive Normal NON-REACTIVE [facility] Comment on above: Order Comment: FASTI NG:NO FASTING: NO Performed By: #### 6 462 #### [facility] [address], [address] [place] [address] Hi Lift Operator: Kaleb Wong MD HEPATITIS B SURFACE ANTIBODY QL Non-Reactive Normal NON-REACTIVE [facility] Comment on above: Order Comment: FASTI NG:NO FASTING: NO Performed By: #### 6 462 #### [facility] [address], [address] [place] [address] Hi Lift Operator: Kaleb Wong MD HEPATITIS B SURFACE ANTIGEN Non-Reactive Normal NON-REACTIVE [facility] Comment on above: Order Comment: FASTI NG:NO FASTING: NO Performed By: #### 6 462 #### [facility] [address], [address] [place] [address] Hi Lift Operator: Kaleb Wong MD HEPATITIS C ANTIBODY Non-Reactive Normal NON-REACTIVE [facility] Comment on above: Order Comment: FASTI NG:NO FASTING: NO Performed By: #### 6 462 #### [facility] [address], [address] [place] [address] Hi Lift Operator: Kaleb Wong MD INDEX 0.07 Normal <1.00 [facility] Comment on above: Order Comment: FASTI NG:NO FASTING: NO Result Comment: HCV antibody was non-reactive. There is no laboratory evidence of HCV infection. In most cases, no further action is required. However, if recent HCV exposure is suspected, a test for HCV RNA (test code 83374) is suggested. For additional information please refer to http://education.Mojiva.Berg/faq/EBZ70x1 (This link is being provided for informational/ educational purposes only.) Performed By: #### 6 462 #### [facility] [address], [address] [place] [address] Hi Lift Operator: Kaleb Wong MD COMPREHENSIVE METABOLIC PANE [facility] 04-17-2022 Albumin [Mass/Vol] 3.9 g/dL Normal 3.6-5.1 [facility] Comment on above: Order Comment: FASTI NG:YES FASTING: YES Performed By: #### 1 0231 #### [facility] [place] [address] Hi Lift Operator: Kaleb Wong MD Albumin/Globulin [Mass ratio] 1.3 {ratio} Normal 1.0-2.5 [facility] Comment on above: Order Comment: FASTI NG:YES FASTING: YES Performed By: #### 1 0231 #### [facility] [place] [address] Hi Lift Operator: Kaleb Wong MD ALP [Catalytic activity/Vol] 141 U/L High 36-130 [facility] Comment on above: Order Comment: FASTI NG:YES FASTING: YES Performed By: #### 1 0231 #### [facility] [place] [address] Hi Lift Operator: Kaleb Wong MD ALT [Catalytic activity/Vol] 74 U/L High 9-46 [facility] Comment on above: Order Comment: FASTI NG:YES FASTING: YES Performed By: #### 1 0231 #### [facility] [place] [address] Hi Lift Operator: Kaleb Wong MD AST [Catalytic activity/Vol] 116 U/L High 10-40 [facility] Comment on above: Order Comment: FASTI NG:YES FASTING: YES Performed By: #### 1 0231 #### [facility] [place] [address] Hi Lift Operator: Kaleb Wong MD Bilirubin [Mass/Vol] 0.6 mg/dL Normal 0.2-1.2 [facility] Comment on above: Order Comment: FASTI NG:YES FASTING: YES Performed By: #### 1 0231 #### [facility] [place] [address] Hi Lift Operator: Kaleb Wogn MD BUN/CREATININE RATIO NOT APPLICABLE Normal 6-22 [facility] Comment on above: Order Comment: FASTI NG:YES FASTING: YES Performed By: #### 1 0231 #### [facility] [address], [address] [place] [address] Hi Lift Operator: Kaleb Wong MD Calcium [Mass/Vol] 8.9 mg/dL Normal 8.6-10.3 [facility] Comment on above: Order Comment: FASTI NG:YES FASTING: YES Performed By: #### 1 0231 #### [facility] [address], [address] [place] [address] Hi Lift Operator: Kaleb Wong MD Chloride [Moles/Vol] 98 mmol/L Normal 98-110 [facility] Comment on above: Order Comment: FASTI NG:YES FASTING: YES Performed By: #### 1 0231 #### [facility] [address], [address] [place] [address] Hi Lift Operator: Kaleb Wong MD CO2 [Moles/Vol] 27 mmol/L Normal 20-32 [facility] Comment on above: Order Comment: FASTI NG:YES FASTING: YES Performed By: #### 1 0231 #### [facility] [address], [address] [place] [address] Hi Lift Operator: Kaleb Wong MD Creatinine [Mass/Vol] 0.99 mg/dL Normal 0.60-1.29 [facility] Comment on above: Order Comment: FASTI NG:YES FASTING: YES Performed By: #### 1 0231 #### [facility] [place] [address] Hi Lift Operator: Kaleb Wong MD GFR/1.73 sq M.predicted among non-blacks MDRD (S/P/Bld) [Vol rate/Area] 96 mL/min/{1.73_m2} Normal > OR = 60 [facility] Comment on above: Order Comment: FASTI NG:YES FASTING: YES Result Comment: The eGFR is based on the CKD-EPI 2021 equation. To calculate the new eGFR from a previous Creatinine or Cystatin C result, go to https://www.kidney.org/professionals/ kdoqi/gfr%5Fcalculator Performed By: #### 1 0231 #### [facility] [address], [address] [place] [address] Hi Lift Operator: Kaleb Wong MD Globulin (S) [Mass/Vol] 3.0 g/dL Normal 1.9-3.7 [facility] Comment on above: Order Comment: FASTI NG:YES FASTING: YES Performed By: #### 1 0231 #### [facility] [address], [address] [place] [address] Hi Lift Operator: Kaleb Wong MD Glucose [Mass/Vol] 117 mg/dL High 65-99 [facility] Comment on above: Order Comment: FASTI NG:YES FASTING: YES Result Comment: Fasting reference interval For someone without known diabetes, a glucose value between 100 and 125 mg/dL is consistent with prediabetes and should be confirmed with a follow-up test. Performed By: #### 1 0231 #### [facility] [address], [address] [place] [address] Hi Lift Operator: Kaleb Wong MD Potassium [Moles/Vol] 4.5 mmol/L Normal 3.5-5.3 [facility] Comment on above: Order Comment: FASTI NG:YES FASTING: YES Performed By: #### 1 0231 #### [facility] [address], [address] [place] [address] Hi Lift Operator: Kaleb Wong MD Protein [Mass/Vol] 6.9 g/dL Normal 6.1-8.1 [facility] Comment on above: Order Comment: FASTI NG:YES FASTING: YES Performed By: #### 1 0231 #### [facility] [address], [address] [place] [address] Hi Lift Operator: Kaleb Wong MD Sodium [Moles/Vol] 135 mmol/L Normal 135-146 [facility] Comment on above: Order Comment: FASTI NG:YES FASTING: YES Performed By: #### 1 0231 #### [facility] [address], [address] [place] [address] Hi Lift Operator: Kaleb Wong MD Urea nitrogen [Mass/Vol] 17 mg/dL Normal 7-25 [facility] Comment on above: Order Comment: FASTI NG:YES FASTING: YES Performed By: #### 1 0231 #### [facility] [address] [facility], [address] [place] [address] Hi Lift Operator: Kaleb Wong MD CBC AUTO DIFFon 01-08-2022 BASO # 0.0 103/ul Normal 0.0-0.[address] [facility] Comment on above: Performed By: #### C BC #### [facility] [address] [place] [address] [address] Pranay Evans Basophils/100 WBC (Bld) 0.6 % Normal 0.2-2.[address] [facility] Comment on above: Performed By: #### C BC #### [facility] [address] [place] [address] Dr. Pranay Evans EO # 0.0 103/ul Normal 0.0-0.[address] [facility] Comment on above: Performed By: #### C BC #### [facility] [address] [place] [address] [address] Pranay Evans Eosinophils/100 WBC (Bld) 0.2 % Critically low 0.9-7.[address] [facility] Comment on above: Performed By: #### C BC #### [facility] [address] [place] [address] Dr. Pranay Evans Erythrocyte distribution width (RBC) [Ratio] 13.4 % Normal 11.0-15.[address] [facility] Comment on above: Performed By: #### C BC #### [facility] [address] [place] [address] Dr. Pranay Evans Hematocrit (Bld) [Volume fraction] 42.7 % Normal 42.0-54.[address] [facility] Comment on above: Performed By: #### C BC #### [facility] [address] [place] [address] Dr. Pranay Evans Hemoglobin (Bld) [Mass/Vol] 14.9 g/dL Normal 14.0-18.[address] [facility] Comment on above: Performed By: #### C BC #### [facility] [address] [place] [address] Dr. Pranay Evans IG # 0.01 10e3/ul Normal 0.00-0.[address] [facility] Comment on above: Performed By: #### C BC #### [facility] [address] [place] [address] Dr. Pranay Evans IG % 0.2 % Normal 0.0-0.[address] [facility] Comment on above: Performed By: #### C BC #### [facility] [address] [place] [address] Dr. Pranay Evans LYMPH # 1.8 103/ul Normal 1.2-3.[address] [facility] Comment on above: Performed By: #### C BC #### [facility] [address] [place] [address] Dr. Pranay Evans Lymphocytes/100 WBC (Bld) 35.0 % Normal 20.5-60.[address] [facility] Comment on above: Performed By: #### C BC #### [facility] [address] [place] [address] Dr. Pranay Evans MANUAL DIFF REQ NO Normal [facility] Comment on above: Performed By: #### C BC #### [facility] [address] [place] [address] Dr. Pranay Evans MCH (RBC) [Entitic mass] 35.1 pg Critically high 25.9-34.[address] [facility] Comment on above: Performed By: #### C BC #### [facility] [address] [place] [address] Dr. Pranya Evans MCHC (RBC) [Mass/Vol] 34.9 g/dL Normal 29.9-35.2 [facility] Comment on above: Performed By: #### C BC #### [facility] [address] [place] [address] Dr. Pranay Evans MCV (RBC) [Entitic vol] 100.5 fL Critically high 80.0-94.[address] [facility] Comment on above: Performed By: #### C BC #### [facility] [address] [place] [address] [address] Pranay Evans MONO # 0.6 103/ul Normal 0.3-0.8 [facility] Comment on above: Performed By: #### C BC #### [facility] [address] [place] [address] Dr. Pranay Evans Monocytes/100 WBC (Bld) 11.9 % Normal 1.7-12.0 [facility] Comment on above: Performed By: #### C BC #### [facility] [address] [place] [address] Dr. Pranay Evans NEUT # 2.6 103/ul Normal 1.4-6.5 [facility] Comment on above: Performed By: #### C BC #### [facility] [address] [place] [address] Dr. Pranay Evans Neutrophils/100 WBC (Bld) 52.1 % Normal 43.0-75.[address] [facility] Comment on above: Performed By: #### C BC #### [facility] [address] [place] [address] Dr. Pranay Evans Platelet mean volume (Bld) [Entitic vol] 9.0 fL Critically low 9.5-13.5 [facility] Comment on above: Performed By: #### C BC #### [facility] [address] [place] [address] Dr. Pranay Evans PLT 267 103/ul Normal 150-450 [facility] Comment on above: Performed By: #### C BC #### [facility] [address] [place] [address] Dr. Pranay Evans RBC 4.25 106/ul Critically low 4.70-6.10 [facility] Comment on above: Performed By: #### C BC #### [facility] [address] [place] [address] Dr. Pranay Evans WBC 5.0 103/ul Normal 4.0-11.0 [facility] Comment on above: Performed By: #### C BC #### [facility] [address] [place] [address] Dr. Pranay Evans DEPAKENE/VALPROICon 05-09-20 22 DEPAKENE 8.3 ug/ml Critically low 50.0-100.0 [facility] Comment on above: Performed By: #### B MP, VALP, LIPID, DLDL #### [facility] [address] [place] [address] [address] Pranay Evans DIRECT LDLon 01-08-2022 Cholesterol in LDL [Mass/Vol] 75 mg/dL Normal [facility] Comment on above: Performed By: #### B MP, VALP, LIPID, DLDL #### [facility] [address] [place] [address] [address] Pranay Evans DLDL NORMAL SEE BELOW Normal [facility] Comment on above: Result Comment: <100 mg/dl OPTIMAL 100 - 129 mg/dl NEAR OR ABOVE OPTIMAL 130 - 159 mg/dl BORDERLINE HIGH 160 - 189 mg/dl HIGH >190 mg/dl VERY HIGH Performed By: #### B MP, VALP, LIPID, DLDL #### [facility] [address] [place] [address] [address] Pranay Evans GLYCOHEMOGLOBIN A1Con 2021 ADA RECOMMENDATION SEE BELOW Normal [facility] Comment on above: Result Comment: ADA RECOMMENDED LIMIT 4.0 - 6.0 ADA THERAPEUTIC TARGET < 7.0 ACTION SUGGESTED > 7.0 Performed By: #### A 1C #### [facility] [address] [place] [address] [address] Pranay Evans Glucose [Mass/Vol] 114 mg/dL Normal [facility] Comment on above: Performed By: #### A 1C #### [facility] [address] [place] [address] [address] Pranay Evans HbA1c (Bld) [Mass fraction] 5.6 % Normal 4.5-6.[address] [facility] Comment on above: Performed By: #### A 1C #### [facility] [address] [place] [address] Dr. Pranay Evans LIPID PROFILEon 01-08-2022 CHOL-HDL RATIO NORM SEE BELOW Normal [facility] Comment on above: Result Comment: 3.3 - 4.4 LOW RISK 4.4 - 7.1 AVERAGE RISK 7.1 - 11.0 MODERATE RISK >11.0 HIGH RISK Performed By: #### B MP, VALP, LIPID, DLDL #### [facility] [address] [place] [address] Dr. Pranay Evans Cholesterol [Mass/Vol] 224 mg/dL Critically high <=[address] [facility] Comment on above: Performed By: #### B MP, VALP, LIPID, DLDL #### [facility] [address] [place] [address] [address] Pranay Evans Cholesterol.total/Cho lesterol in HDL [Mass ratio] 4.7 {ratio} Normal [facility] Comment on above: Performed By: #### B MP, VALP, LIPID, DLDL #### [facility] [address] [place] [address] Dr. Pranay Evans HDL NORMAL > or = 60 mg/dl - LO W CARDIOVASCULAR RISK <40 mg/dl - HIGH CARDIOVASCULAR RISK Normal [facility] Comment on above: Performed By: #### B MP, VALP, LIPID, DLDL #### [facility] [address] [place] [address] Dr. Pranay Evans LDL CALC NORMAL SEE BELOW Normal [facility] Comment on above: Result Comment: <100 mg/dl OPTIMAL 100 - 129 mg/dl NEAR OR ABOVE OPTIMAL 130 - 159 mg/dl BORDERLINE HIGH 160 - 189 mg/dl HIGH >190 mg/dl VERY HIGH Performed By: #### B MP, VALP, LIPID, DLDL #### [facility] [address] [place] [address] Dr. Pranay Evans Triglyceride [Mass/Vol] 622 mg/dL Critically high <=150 [facility] Comment on above: Performed By: #### B MP, VALP, LIPID, DLDL #### [facility] [address] [place] [address] Dr. Pranay Evans VLDL CALC 124.4 mg/dL Normal [facility] Comment on above: Performed By: #### B MP, VALP, LIPID, DLDL #### [facility] [address] [place] [address] Dr. Pranay Evans PROF CHEM 8 (BAS METB)on Anion gap [Moles/Vol] 11.2 mmol/L Normal [facility] Comment on above: Performed By: #### B MP, VALP, LIPID, DLDL #### [facility] [address] [place] [address] [address] Pranay Evans Calcium [Mass/Vol] 8.4 mg/dL Critically low 8.5-10.1 [facility] Comment on above: Performed By: #### B MP, VALP, LIPID, DLDL #### [facility] [address] [place] [address] [address] Pranay Evans Chloride [Moles/Vol] 98 mmol/L Normal 98-[address] [facility] Comment on above: Performed By: #### B MP, VALP, LIPID, DLDL #### [facility] [address] [place] [address] Dr. Pranay Evans CO2 [Moles/Vol] 26.0 mmol/L Normal 21.0-32.0 [facility] Comment on above: Performed By: #### B MP, VALP, LIPID, DLDL #### [facility] [address] [place] [address] [address] Pranay Evans Creatinine [Mass/Vol] 0.97 mg/dL Normal 0.70-1.[address] [facility] Comment on above: Performed By: #### B MP, VALP, LIPID, DLDL #### [facility] [address] [place] [address] Dr. Pranay Evans EGFR-AF ITALIAN >60 Normal >=60 [facility] Comment on above: Performed By: #### B MP, VALP, LIPID, DLDL #### [facility] [address] [place] [address] [address] Pranay Evans EGFR-NON AF ITALIAN >60 Normal >=[address] [facility] Comment on above: Performed By: #### B MP, VALP, LIPID, DLDL #### [facility] [address] [place] [address] [address] Pranay Evans Glucose [Mass/Vol] 107 mg/dL Critically high 74-106 [facility] Comment on above: Performed By: #### B MP, VALP, LIPID, DLDL #### [facility] [address] [place] [address] [address] Pranay Evans Potassium [Moles/Vol] 4.2 mmol/L Normal 3.5-5.[address] [facility] Comment on above: Performed By: #### B MP, VALP, LIPID, DLDL #### [facility] [address] [place] [address] Dr. Pranay Evans Sodium [Moles/Vol] 131 mmol/L Critically low 136-145 [facility] Comment on above: Performed By: #### B MP, VALP, LIPID, DLDL #### [facility] [address] [place] [address] Dr. Pranay Evans Urea nitrogen [Mass/Vol] 17.0 mg/dL Normal 7.0-18.[address] [facility] Comment on above: Performed By: #### B MP, VALP, LIPID, DLDL #### [facility] [address] [place] [address] Dr. Pranay Evans Urea nitrogen/Creatinine [Mass ratio] 17.5 mg/mg Normal [facility] Comment on above: Performed By: #### B MP, VALP, LIPID, DLDL #### [facility] [address] [place] [address] Dr. Pranay Evans CBC (INCLUDES DIFF/PLT)on Basophils (Bld) [#/Vol] 0.05 10*3/uL Normal 0-200 [facility] Comment on above: Order Comment: FASTI NG:UNKNOWN FASTING: UNKNOWN Performed By: #### 6 399 #### [facility] [address], [address] [place] [address] Hi Lift Operator: Kaleb Wong MD Basophils/100 WBC (Bld) 0.8 % Normal [facility] Comment on above: Order Comment: FASTI NG:UNKNOWN FASTING: UNKNOWN Performed By: #### 6 399 #### [facility] [address], [address] [place] [address] Hi Lift Operator: Kaleb Wong MD Eosinophils (Bld) [#/Vol] 0.019 10*3/uL Normal 15-500 [facility] Comment on above: Order Comment: FASTI NG:UNKNOWN FASTING: UNKNOWN Performed By: #### 6 399 #### [facility] of [address], [address] [place] [address] Hi Lift Operator: Kaleb Wong MD Eosinophils/100 WBC (Bld) 0.3 % Normal [facility] Comment on above: Order Comment: FASTI NG:UNKNOWN FASTING: UNKNOWN Performed By: #### 6 399 #### [facility] of [address], [address] [place] [address] Hi Lift Operator: Kaleb Wong MD Erythrocyte distribution width (RBC) [Ratio] 13.2 % Normal 11.0-15.0 [facility] Comment on above: Order Comment: FASTI NG:UNKNOWN FASTING: UNKNOWN Performed By: #### 6 399 #### [facility] of [address], [address] [place] [address] Hi Lift Operator: Kaleb Wong MD Hematocrit (Bld) [Volume fraction] 47.1 % Normal 38.5-50.0 [facility] Comment on above: Order Comment: FASTI NG:UNKNOWN FASTING: UNKNOWN Performed By: #### 6 399 #### [facility] [place] [address] Hi Lift Operator: Kaleb Wong MD Hemoglobin (Bld) [Mass/Vol] 16.6 g/dL Normal 13.2-17.1 [facility] Comment on above: Order Comment: FASTI NG:UNKNOWN FASTING: UNKNOWN Performed By: #### 6 399 #### [facility] of [place] [address] Hi Lift Operator: Kaleb Wong MD Lymphocytes (Bld) [#/Vol] 1.777 10*3/uL Normal 850-3900 [facility] Comment on above: Order Comment: FASTI NG:UNKNOWN FASTING: UNKNOWN Performed By: #### 6 399 #### [facility] of [address], [address] [place] [address] Hi Lift Operator: Kaleb Wong MD Lymphocytes/100 WBC (Bld) 28.2 % Normal [facility] Comment on above: Order Comment: FASTI NG:UNKNOWN FASTING: UNKNOWN Performed By: #### 6 399 #### [facility] [place] [address] Hi Lift Operator: Kaleb Wong MD MCH (RBC) [Entitic mass] 34.3 pg High 27.0-33.0 [facility] Comment on above: Order Comment: FASTI NG:UNKNOWN FASTING: UNKNOWN Performed By: #### 6 399 #### [facility] [place] [address] Hi Lift Operator: Kaleb Wong MD MCHC (RBC) [Mass/Vol] 35.2 g/dL Normal 32.0-36.0 [facility] Comment on above: Order Comment: FASTI NG:UNKNOWN FASTING: UNKNOWN Performed By: #### 6 399 #### [facility] [place] [address] Hi Lift Operator: Kaleb Wong MD MCV (RBC) [Entitic vol] 97.3 fL Normal 80.0-100.0 [facility] Comment on above: Order Comment: FASTI NG:UNKNOWN FASTING: UNKNOWN Performed By: #### 6 399 #### [facility] [place] [address] Hi Lift Operator: Kaleb Wong MD Monocytes (Bld) [#/Vol] 0.655 10*3/uL Normal 200-950 [facility] Comment on above: Order Comment: FASTI NG:UNKNOWN FASTING: UNKNOWN Performed By: #### 6 399 #### [facility] [place] [address] Hi Lift Operator: Kaleb Wong MD Monocytes/100 WBC (Bld) 10.4 % Normal [facility] Comment on above: Order Comment: FASTI NG:UNKNOWN FASTING: UNKNOWN Performed By: #### 6 399 #### [facility] [address], [address] [place] [address] Hi Lift Operator: Kaleb Wong MD Neutrophils (Bld) [#/Vol] 3.799 10*3/uL Normal 9528-8396 [facility] Comment on above: Order Comment: FASTI NG:UNKNOWN FASTING: UNKNOWN Performed By: #### 6 399 #### [facility] [address], [address] [place] [address] Hi Lift Operator: Kaleb Wong MD Neutrophils/100 WBC (Bld) 60.3 % Normal [facility] Comment on above: Order Comment: FASTI NG:UNKNOWN FASTING: UNKNOWN Performed By: #### 6 399 #### [facility] [place] [address] Hi Lift Operator: Kaleb Wong MD Platelet mean volume (Bld) [Entitic vol] 10.2 fL Normal 7.5-12.5 [facility] Comment on above: Order Comment: FASTI NG:UNKNOWN FASTING: UNKNOWN Performed By: #### 6 399 #### [facility] [address], [address] [place] [address] Hi Lift Operator: Kaleb Wong MD Platelets (Bld) [#/Vol] 290 10*3/uL Normal 140-400 [facility] Comment on above: Order Comment: FASTI NG:UNKNOWN FASTING: UNKNOWN Performed By: #### 6 399 #### [facility] [address], [address] [place] [address] Hi Lift Operator: Kaleb Wong MD RBC (Bld) [#/Vol] 4.84 10*6/uL Normal 4.20-5.80 [facility] Comment on above: Order Comment: FASTI NG:UNKNOWN FASTING: UNKNOWN Performed By: #### 6 399 #### [facility] [place] [address] Hi Lift Operator: Kaleb Wong MD WBC (Bld) [#/Vol] 6.3 10*3/uL Normal 3.8-10.8 [facility] Comment on above: Order Comment: FASTI NG:UNKNOWN FASTING: UNKNOWN Performed By: #### 6 399 #### [facility] [address], [address] [place] [address] Hi Lift Operator: Kaleb Wong MD DEPAKENE/VALPROICon 05-23-20 21 DEPAKENE 24.6 ug/ml Critically low 50.0-100.0 [facility] Comment on above: Performed By: #### V ALP #### [facility] [address] [address] [address] Pranay Evans Culture Blood #1on 9 Culture NO GROWTH 6 DAYS [place], [place] Special Requests R AC 20MLS [place], [place] Specimen Description .BLOOD [place], [place] Hemoglobin A1con 05-17-2019 Glucose [Mass/Vol] 105 mg/dL [place], [place] Comment on above: The ADA and AACC rec ommend providing the estimated average glucose result to permit better patient understanding of their HBA1c result. HbA1c (Bld) [Mass fraction] 5.3 % 4 - 6 % [place], [place] Comp Metabolic Profon 2018 Albumin [Mass/Vol] 3.6 g/dL 3.5 - 5.2 g/dL [place] Albumin/Globulin [Mass ratio] NOT REPORTED [place] ALP [Catalytic activity/Vol] 71 U/L 40 - 129 U/L [place] ALT [Catalytic activity/Vol] 41 U/L 5 - 41 U/L [place] Anion gap [Moles/Vol] 11 mmol/L 9 - 17 mmol/L [place] AST [Catalytic activity/Vol] 59 U/L High <40 [place] Bilirubin Ql (U) 0.59 mg/dL 0.3 - 1.2 mg/dL [place] Bun/Cre Ratio NOT REPORTED [place], [place] Calcium [Mass/Vol] 9.3 mg/dL 8.6 - 10. 4 mg/dL [place] Chloride [Moles/Vol] 101 mmol/L 98 - 10 7 mmol/L [place] CO2 [Moles/Vol] 25 mmol/L 20 - 31 mmol/L [place] Creatinine [Mass/Vol] 0.89 mg/dL 0.7 - 1.2 mg/dL [place] GFR >60 >60 mL/min [place], [place] GFR Non- >60 >60 mL/min [place] GFR/1.73 sq M predicted among non-blacks MDRD (S/P/Bld) [Vol rate/Area] [place], [place] Comment on above: Average GFR for 40-4 9 years old: 99 mL/min/1.73sq m Chronic Kidney Disease: <60 mL/min/1.73sq m Kidney failure: <15 mL/min/1.73sq m eGFR calculated using average adult body mass. Additional eGFR calculator available at: http://www.Vicampo/multiple_crcl_2012.htm GFR/1.73 sq M predicted among non-blacks MDRD (S/P/Bld) [Vol rate/Area] NOT REPORTED [place] Glucose [Mass/Vol] 100 mg/dL High 70 - 99 mg/dL [place] Potassium [Moles/Vol] 3.8 mmol/L 3.7 - 5.3 mmol/L [place] Protein [Mass/Vol] 6.6 g/dL 6.4 - 8.3 g/dL [place] Sodium [Moles/Vol] 137 mmol/L 135 - 144 mmol/L [place] Urea nitrogen [Mass/Vol] 10 mg/dL 6 - 20 mg/dL [place] Lipid panel - fastingon 05-03 Cholesterol [Mass/Vol] 188 mg/dL <200 [place] Comment on above: Cholesterol Guidelines: <200 Desirable 200-240 Borderline >240 Undesirable Cholesterol in HDL [Mass/Vol] 28 mg/dL Low >40 [place] Comment on above: HDL Guidelines: <40 Undesirable 40-59 Borderline >59 Desirable Cholesterol in LDL [Mass/Vol] 120 mg/dL 0 - 130 mg/dL [place] Comment on above: LDL Guidelines: <100 Desirable 100-129 Near to/above Desirable 130-159 Borderline >159 Undesirable Direct (measured) LDL and calculated LDL are not interchangeable tests. Cholesterol in VLDL [Mass/Vol] NOT REPORTED High 1 - 30 mg/dL [place] Cholesterol.total/Cho lesterol in HDL [Mass ratio] 6.7 {ratio} High <5 [place] Triglyceride [Mass/Vol] 199 mg/dL High <150 [place] Comment on above: Triglyceride Guidelines: <150 Desirable 150-199 Borderline 200-499 High >499 Very high Based on AHA Guidelines for fasting triglyceride, June 2012. Otheron 05-16-2019 Interpretation and review of laboratory results Abnormal [place] T4, freeon 05-16-2019 Thyroxine, Free 1.46 ng/dL 0.93 - 1.7 ng/dL [place] TSH without Reflexon 019 TSH Qn 2.20 m[IU]/L [place], [place] Valproic acid level, totalon 05-16-2019 Valproic Acid Lvl 54 ug/mL 50 - 125 ug/mL [place] Valproic Date last dose [id number] [place] Valproic Dose amount 250mg [place], [place] Valproic Time last dose 2200 [place], [place] Hematologyon 05-15-2019 Basophils (Bld) [#/Vol] 0.07 10*3/uL [place] Basophils/100 WBC (Bld) 1 % 0 - 2 % [place] Eosinophils (Bld) [#/Vol] 0.24 10*3/uL [place] Eosinophils/100 WBC (Bld) 3 % 1 - 4 % [place] Hematocrit (Bld) [Volume fraction] 39.4 % Low 40.7 - 50.3 % [place] Hemoglobin (Bld) [Mass/Vol] 13.1 g/dL 13 - 17 g/dL [place] Lymphocytes (Bld) [#/Vol] 1.77 10*3/uL [place] Lymphocytes/100 WBC (Bld) 19 % Low 24 - 43 % [place] MCH (RBC) [Entitic mass] 33.2 pg 25.2 - 33.5 pg [place] MCV (RBC) [Entitic vol] 100.0 fL 82.6 - 102.9 fL [place] Monocytes (Bld) [#/Vol] 0.65 10*3/uL [place] Monocytes/100 WBC (Bld) 7 % 3 - 12 % [place] Platelets (Bld) [#/Vol] NOT REPORTED [place] Platelets (Bld) [#/Vol] 207 10*3/uL [place] RBC (Bld) [#/Vol] 3.94 10*6/uL Low 4.21 - 5.7 7 m/uL [place] RBC morphology finding Nom (Bld) NOT REPORTED [place] WBC (Bld) [#/Vol] 0.0 10*3/uL 0.0 per 10 0 WBC [place] WBC (Bld) [#/Vol] 9.2 10*3/uL [place] Metabolic Panelon 05-15-2019 Albumin [Mass/Vol] 3.2 g/dL Low 3.5 - 5.2 g/dL [place] ALP [Catalytic activity/Vol] 61 U/L 40 - 129 U/L [place] ALT [Catalytic activity/Vol] 39 U/L 5 - 41 U/L [place] Anion gap [Moles/Vol] 12 mmol/L 9 - 17 mmol/L [place] AST [Catalytic activity/Vol] 61 U/L High <40 [place] Calcium [Mass/Vol] 8.5 mg/dL Low 8.6 - 10. 4 mg/dL [place] Chloride [Moles/Vol] 101 mmol/L 98 - 10 7 mmol/L [place] CO2 [Moles/Vol] 24 mmol/L 20 - 31 mmol/L [place] Creatinine [Mass/Vol] 0.62 mg/dL Low 0.7 - 1.2 mg/dL [place] GFR/1.73 sq M predicted among non-blacks MDRD (S/P/Bld) [Vol rate/Area] NOT REPORTED [place] GFR/1.73 sq M predicted among non-blacks MDRD (S/P/Bld) [Vol rate/Area] [place] Comment on above: Average GFR for 40-4 9 years old: 99 mL/min/1.73sq m Chronic Kidney Disease: <60 mL/min/1.73sq m Kidney failure: <15 mL/min/1.73sq m eGFR calculated using average adult body mass. Additional eGFR calculator available at: http://www.Vicampo/multiple_crcl_2012.htm Glucose [Mass/Vol] 103 mg/dL High 70 - 99 mg/dL [place] Magnesium [Mass/Vol] 2.1 mg/dL 1.6 - 2 .6 mg/dL [place] Potassium [Moles/Vol] 3.5 mmol/L Low 3.7 - 5.3 mmol/L [place] Protein [Mass/Vol] 6.2 g/dL Low 6.4 - 8.3 g/dL [place] Sodium [Moles/Vol] 137 mmol/L 135 - 144 mmol/L [place] Urea nitrogen [Mass/Vol] 5 mg/dL Low 6 - 20 mg/dL [place] Otheron 05-15-2019 Albumin/Globulin [Mass ratio] 1.1 {ratio} [place] Bilirubin Ql (U) 0.58 mg/dL 0.3 - 1.2 mg/dL [place] Bun/Cre Ratio NOT REPORTED [place] Differential Type NOT REPORTED [place] Erythrocyte distribution width (RBC) [Ratio] 12.7 % 11.8 - 14.4 % [place] GFR >60 >60 mL/min [place] GFR Non- >60 >60 mL/min [place] Immature granulocytes (Bld) [#/Vol] 0 % 0 [place] Immature granulocytes (Bld) [#/Vol] 0.04 10*3/uL [place] Interpretation and review of laboratory results Abnormal [place] Interpretation and review of laboratory results Abnormal [place] MCHC (RBC) [Mass/Vol] 33.2 g/dL 28.4 - 34.8 g/dL [place] Platelet mean volume (Bld) [Entitic vol] 10.2 fL 8.1 - 13.5 fL [place] Segmented neutrophils/100 WBC (Bld) 70 % High 36 - 65 % [place] Segs Absolute 6.43 [place], [place] Total CK 2301 U/L High 39 - 308 U/L [place] WBC Morphology NOT REPORTED [place], [place] CBC auto differentialon 05-03 Basophils (Bld) [#/Vol] 0.04 10*3/uL [place] Basophils/100 WBC (Bld) 0 % 0 - 2 % [place] Differential Type NOT REPORTED [place] Eosinophils (Bld) [#/Vol] 0.10 10*3/uL [place] Eosinophils/100 WBC (Bld) 1 % 1 - 4 % [place] Erythrocyte distribution width (RBC) [Ratio] 12.9 % 11.8 - 14.4 % [place] Hematocrit (Bld) [Volume fraction] 38.7 % Low 40.7 - 50.3 % [place] Hemoglobin (Bld) [Mass/Vol] 12.9 g/dL Low 13 - 17 g/dL [place] Immature granulocytes (Bld) [#/Vol] 0.04 10*3/uL [place] Immature granulocytes (Bld) [#/Vol] 0 % 0 [place] Interpretation and review of laboratory results Abnormal [place] Lymphocytes (Bld) [#/Vol] 2.14 10*3/uL [place] Lymphocytes/100 WBC (Bld) 20 % Low 24 - 43 % [place] MCH (RBC) [Entitic mass] 33.9 pg High 25.2 - 33.5 pg [place] MCHC (RBC) [Mass/Vol] 33.3 g/dL 28.4 - 34.8 g/dL [place] MCV (RBC) [Entitic vol] 101.6 fL 82.6 - 102.9 fL [place] Monocytes (Bld) [#/Vol] 0.74 10*3/uL [place] Monocytes/100 WBC (Bld) 7 % 3 - 12 % [place] Platelet mean volume (Bld) [Entitic vol] 10.1 fL 8.1 - 13.5 fL [place] Platelets (Bld) [#/Vol] 195 10*3/uL [place] Platelets (Bld) [#/Vol] NOT REPORTED [place] RBC (Bld) [#/Vol] 3.81 10*6/uL Low 4.21 - 5.7 7 m/uL [place] RBC morphology finding Nom (Bld) NOT REPORTED [place] Segmented neutrophils/100 WBC (Bld) 71 % High 36 - 65 % [place] Segs Absolute 7.64 [place] WBC (Bld) [#/Vol] 10.7 10*3/uL [place] WBC (Bld) [#/Vol] 0.0 10*3/uL 0.0 per 10 0 WBC [place] WBC Morphology NOT REPORTED [place] CKon 05-14-2019 Total CK 3458 U/L High 39 - 308 U/L [place] Comprehensive Metabolic Pane l w/ Reflex to MGon 05-14-2019 Albumin [Mass/Vol] 2.8 g/dL Low 3.5 - 5.2 g/dL [place] Albumin/Globulin [Mass ratio] 0.9 {ratio} Low [place] ALP [Catalytic activity/Vol] 67 U/L 40 - 129 U/L [place] ALT [Catalytic activity/Vol] 41 U/L 5 - 41 U/L [place] Anion gap [Moles/Vol] 10 mmol/L 9 - 17 mmol/L [place] AST [Catalytic activity/Vol] 68 U/L High <40 [place] Bilirubin Ql (U) 0.54 mg/dL 0.3 - 1.2 mg/dL [place] Bun/Cre Ratio NOT REPORTED [place] Calcium [Mass/Vol] 7.9 mg/dL Low 8.6 - 10. 4 mg/dL [place] Chloride [Moles/Vol] 106 mmol/L 98 - 10 7 mmol/L [place] CO2 [Moles/Vol] 24 mmol/L 20 - 31 mmol/L [place] Creatinine [Mass/Vol] 0.79 mg/dL 0.7 - 1.2 mg/dL [place] GFR >60 >60 mL/min [place] GFR Non- >60 >60 mL/min [place] GFR/1.73 sq M predicted among non-blacks MDRD (S/P/Bld) [Vol rate/Area] NOT REPORTED [place] GFR/1.73 sq M predicted among non-blacks MDRD (S/P/Bld) [Vol rate/Area] [place], [place] Comment on above: Average GFR for 40-4 9 years old: 99 mL/min/1.73sq m Chronic Kidney Disease: <60 mL/min/1.73sq m Kidney failure: <15 mL/min/1.73sq m eGFR calculated using average adult body mass. Additional eGFR calculator available at: http://www.garbs.Berg/multiple_crcl_2012.htm Glucose [Mass/Vol] 106 mg/dL High 70 - 99 mg/dL [place] Potassium [Moles/Vol] 3.7 mmol/L 3.7 - 5.3 mmol/L [place] Protein [Mass/Vol] 5.8 g/dL Low 6.4 - 8.3 g/dL [place] Sodium [Moles/Vol] 140 mmol/L 135 - 144 mmol/L [place] Urea nitrogen [Mass/Vol] 10 mg/dL 6 - [facility] Culture NORMAL RESPIRATORY F ANAND LIGHT GROWTH [place] Direct Exam Negative Abnormal [place] Direct Exam < 10 EPITHELIAL CELLS/LPF [place] Direct Exam Positive Abnormal [place] Direct Exam >25 NEUTROPHILS/LPF [place] Interpretation and review of laboratory results Abnormal [place] Interpretation and review of laboratory results Abnormal [place] Special Requests NOT REPORTED [place] Specimen Description .INDUCED SPUTUM [place] Reginaldo, Mhpn Incoming Radiant Results From [email or web address] - 05/14/2019 4:03 PM EDT EXAMINATION: MRI OF THE BRAIN WITHOUT CONTRAST 05/14/2019 3:05 pm TECHNIQUE: Multiplanar multisequence MRI of the brain was performed without the administration of intravenous contrast. COMPARISON: None. HISTORY: ORDERING SYSTEM PROVIDED HISTORY: concern for right sided weakness TECHNOLOGIST PROVIDED HISTORY: Epilepsy protocol FINDINGS: INTRACRANIAL STRUCTURES/VENTRICLES: There is no acute infarct. No mass effect or midline shift. No evidence of an acute intracranial hemorrhage. The ventricles and sulci are normal in size and configuration. There 3 or 4 scattered punctate foci of T2 prolongation identified within the periventricular subcortical white matter which are nonspecific. The sellar/suprasellar regions appear unremarkable. Mesial temporal lobes are symmetric without findings mesial temporal sclerosis. The normal signal voids within the major intracranial vessels appear maintained. ORBITS: The visualized portion of the orbits demonstrate no acute abnormality. SINUSES: Mild ethmoid sinus mucosal thickening. BONES/SOFT TISSUES: The bone marrow signal intensity appears normal. The soft tissues demonstrate no acute abnormality. IMPRESSION: Negative for stroke, midline shift or mass effect. Few scattered foci of nonspecific T2 prolongation identified within periventricular subcortical white matter. Findings can be seen in setting of acute underlying headache syndrome, developing chronic small ischemic disease, less likely vasculitis/demyelinating process. [facility] BRE Negative for stroke, midline shift or mass effect. Few scattered foci of nonspecific T2 prolongation identified within periventricular subcortical white matter. Findings can be seen in setting of acute underlying headache syndrome, developing chronic small ischemic disease, less likely vasculitis/demyelinating process. [place] EXAMINATION: MRI OF THE BRAIN WITHOUT CONTRAST 05/14/2019 3:05 pm TECHNIQUE: Multiplanar multisequence MRI of the brain was performed without the administration of intravenous contrast. COMPARISON: None. HISTORY: ORDERING SYSTEM PROVIDED HISTORY: concern for right sided weakness TECHNOLOGIST PROVIDED HISTORY: Epilepsy protocol FINDINGS: INTRACRANIAL STRUCTURES/VENTRICLES: There is no acute infarct. No mass effect or midline shift. No evidence of an acute intracranial hemorrhage. The ventricles and sulci are normal in size and configuration. There 3 or 4 scattered punctate foci of T2 prolongation identified within the periventricular subcortical white matter which are nonspecific. The sellar/suprasellar regions appear unremarkable. Mesial temporal lobes are symmetric without findings mesial temporal sclerosis. The normal signal voids within the major intracranial vessels appear maintained. ORBITS: The visualized portion of the orbits demonstrate no acute abnormality. SINUSES: Mild ethmoid sinus mucosal thickening. BONES/SOFT TISSUES: The bone marrow signal intensity appears normal. The soft tissues demonstrate no acute abnormality. [place] Blood Gason 05-13-2019 Oxygen saturation in Blood 98 % 94 - 98 % [place] CBC auto differentialon 05-03 Basophils (Bld) [#/Vol] 0.07 10*3/uL [place] Basophils/100 WBC (Bld) 0 % 0 - 2 % [place] Differential Type NOT REPORTED [place] Eosinophils (Bld) [#/Vol] 10*3/uL [place] Eosinophils/100 WBC (Bld) 0 % Low 1 - 4 % [place] Erythrocyte distribution width (RBC) [Ratio] 13.1 % 11.8 - 14.4 % [place] Hematocrit (Bld) [Volume fraction] 42.6 % 40.7 - 50.3 % [place] Hemoglobin (Bld) [Mass/Vol] 14.1 g/dL 13 - 17 g/dL [place] Immature granulocytes (Bld) [#/Vol] 0 % 0 [place] Immature granulocytes (Bld) [#/Vol] 0.07 10*3/uL [place] Lymphocytes (Bld) [#/Vol] 1.51 10*3/uL [place] Lymphocytes/100 WBC (Bld) 9 % Low 24 - 43 % [place] MCH (RBC) [Entitic mass] 33.8 pg High 25.2 - 33.5 pg [place] MCHC (RBC) [Mass/Vol] 33.1 g/dL 28.4 - 34.8 g/dL [place] MCV (RBC) [Entitic vol] 102.2 fL 82.6 - 102.9 fL [place] Monocytes (Bld) [#/Vol] 0.78 10*3/uL [place] Monocytes/100 WBC (Bld) 5 % 3 - 12 % [place] Platelet mean volume (Bld) [Entitic vol] 10.1 fL 8.1 - 13.5 fL [place] Platelets (Bld) [#/Vol] NOT REPORTED [place] Platelets (Bld) [#/Vol] 214 10*3/uL [place] RBC (Bld) [#/Vol] 4.17 10*6/uL Low 4.21 - 5.7 7 m/uL [place] RBC morphology finding Nom (Bld) NOT REPORTED [place] Segmented neutrophils/100 WBC (Bld) 86 % High 36 - 65 % [place] Segs Absolute 14.39 High [place] WBC (Bld) [#/Vol] 0.0 10*3/uL 0.0 per 10 0 WBC [place] WBC (Bld) [#/Vol] 16.8 10*3/uL [place] WBC Morphology NOT REPORTED [place] CKon 05-13-2019 Total CK 6913 U/L High 39 - 308 U/L [place] Cardiacon 05-13-2019 CRP [Mass/Vol] 97.5 mg/L High 0 - 5 mg/L [place], [place] Myoglobin [Mass/Vol] 605 ng/mL High 28 - 72 ng/mL [place] Comprehensive Metabolic Pane l w/ Reflex to MGon 05-13-2019 Albumin [Mass/Vol] 3.3 g/dL Low 3.5 - 5.2 g/dL [place] Albumin/Globulin [Mass ratio] 1.1 {ratio} [place] ALP [Catalytic activity/Vol] 70 U/L 40 - 129 U/L [place] ALT [Catalytic activity/Vol] 52 U/L High 5 - 41 U/L [place] Anion gap [Moles/Vol] 13 mmol/L 9 - 17 mmol/L [place] AST [Catalytic activity/Vol] 89 U/L High <40 [place] Bilirubin Ql (U) 0.62 mg/dL 0.3 - 1.2 mg/dL [place] Bun/Cre Ratio NOT REPORTED [place] Calcium [Mass/Vol] 7.9 mg/dL Low 8.6 - 10. 4 mg/dL [place] Chloride [Moles/Vol] 104 mmol/L 98 - 10 7 mmol/L [place] CO2 [Moles/Vol] 22 mmol/L 20 - 31 mmol/L [place] Creatinine [Mass/Vol] 1.02 mg/dL 0.7 - 1.2 mg/dL [place] GFR >60 >60 mL/min [place] GFR Non- >60 >60 mL/min [place] GFR/1.73 sq M predicted among non-blacks MDRD (S/P/Bld) [Vol rate/Area] NOT REPORTED [place] GFR/1.73 sq M predicted among non-blacks MDRD (S/P/Bld) [Vol rate/Area] [place], [place] Comment on above: Average GFR for 40-4 9 years old: 99 mL/min/1.73sq m Chronic Kidney Disease: <60 mL/min/1.73sq m Kidney failure: <15 mL/min/1.73sq m eGFR calculated using average adult body mass. Additional eGFR calculator available at: http://www.garbs.Berg/multiple_crcl_2011.htm Glucose [Mass/Vol] 134 mg/dL High 70 - 99 mg/dL [place] Potassium [Moles/Vol] 4.3 mmol/L 3.7 - 5.3 mmol/L [place] Protein [Mass/Vol] 6.2 g/dL Low 6.4 - 8.3 g/dL [place] Sodium [Moles/Vol] 139 mmol/L 135 - 144 mmol/L [place] Urea nitrogen [Mass/Vol] 15 mg/dL 6 - 20 mg/dL [place] Hematologyon 05-13-2019 aPTT Coag (Bld) [Time] NOT REPORTED [place] Metabolic Panelon 05-13-2019 Glucose [Mass/Vol] 142 mg/dL High 74 - 100 mg/dL [place], [place] Otheron 05-13-2019 Korey Test Positive [place], [place] Atrial Rate 125 BPM [place] KY FIO2 30.0 [place] Interpretation and review of laboratory results Abnormal [place] Interpretation and review of laboratory results Abnormal [place] Interpretation and review of laboratory results Abnormal [place] Lactic Acid, Sepsis NOT REPORTED 0.5 - 1. 9 mmol/L [place] Lactic Acid, Sepsis, Whole Blood 1.9 mmol/L 0.5 - 1.9 mmol/L [place] Mode PRVC [place] MRSA, DNA, Nasal NEGATIVE: MRSA DNA n ot detected by nucleic acid amplification. NEGATIVE: MRSA DNA not detected by nucleic acid amplificati [place] Comment on above: Results should be used as an adjunct to nosocomial control efforts to identify patients needing enhanced precautions. The test is not intended to identify patients with staphylococcal infections. Results should not be used to guide or monitor treatment for MRSA infections. Negative Base Excess, Art NOT REPORTED [place] O2 Device/Flow/% Adult Ventilator [place] P [place] 58 degrees [place], [place] P-R Interval 138 ms [place], [place] POC HCO3 26.1 mmol/L 21 - 28 mmol/L [place] POC pCO2 37.4 [place] POC pCO2 Temp NOT REPORTED mm Hg [facility] [place] POC pH 7.452 High [place] POC pH Temp NOT REPORTED [facility] [place] P[place] PO2 92.8 [place] POC pO2 Temp NOT REPORTED mm Hg [place], [place] Positive Base Excess, Art 2 [place] Q-T Interval 312 ms [place], [place] QRS Duration 80 ms [place] QTc Calculation (Bazett) 450 ms [place] R [place] 65 degrees [place] Sample Site Right Radial Artery [place] Specimen Description .NASAL SWAB [place], [place] T [place] 63 degrees [place], [place] TCO2 (calc), Art 27 mmol/L 22 - 29 mmol/L [place] Ventricular Rate 125 BPM [place] No acute abnormality of the cervical spine. [place] EXAMINATION: CT OF T HE CERVICAL SPINE WITHOUT CONTRAST 05/13/2019 3:02 am TECHNIQUE: CT of the cervical spine was performed without the administration of intravenous contrast. Multiplanar reformatted images are provided for review. Dose modulation, iterative reconstruction, and/or weight based adjustment of the mA/kV was utilized to reduce the radiation dose to as low as reasonably achievable. COMPARISON: None. HISTORY: ORDERING SYSTEM PROVIDED HISTORY: Found down FINDINGS: BONES/ALIGNMENT: There is no evidence of an acute cervical spine fracture. There is normal alignment of the cervical spine. DEGENERATIVE CHANGES: No significant degenerative changes. SOFT TISSUES: There is no prevertebral soft tissue swelling. Endotracheal and enteric tubes. [place] Reginaldo, Mhpn Incoming Radiant Results From [email or web address] - 05/13/2019 4:09 AM EDT EXAMINATION: CT OF THE CERVICAL SPINE WITHOUT CONTRAST 05/13/2019 3:02 am TECHNIQUE: CT of the cervical spine was performed without the administration of intravenous contrast. Multiplanar reformatted images are provided for review. Dose modulation, iterative reconstruction, and/or weight based adjustment of the mA/kV was utilized to reduce the radiation dose to as low as reasonably achievable. COMPARISON: None. HISTORY: ORDERING SYSTEM PROVIDED HISTORY: Found down FINDINGS: BONES/ALIGNMENT: There is no evidence of an acute cervical spine fracture. There is normal alignment of the cervical spine. DEGENERATIVE CHANGES: No significant degenerative changes. SOFT TISSUES: There is no prevertebral soft tissue swelling. Endotracheal and enteric tubes. IMPRESSION: No acute abnormality of the cervical spine. [place] Reginaldo, Mhpn Incoming E kg Results From [facility] [place] - 05/13/2019 10:21 PM EDT Sinus tachycardia Otherwise normal ECG No previous ECGs available [place] Sinus tachycardia Otherwise normal ECG No previous ECGs available [place] Arterial Blood Gas, POCon Korey Test NOT REPORTED [place], [place] aPTT Coag (Bld) [Time] NOT REPORTED [place] KY FIO2 50.0 [place] Interpretation and review of laboratory results Abnormal [place] Mode PRVC [place] KY Negative Base Excess, Art 4 High [place] O2 Device/Flow/% Adult Ventilator [place], [place] Oxygen saturation in Blood 97 % 94 - 98 % [place] POC HCO3 20.4 mmol/L Low 21 - 28 mmol/L [place] POC pCO2 34.0 Low [place] POC pCO2 Temp NOT REPORTED mm Hg [place] POC pH 7.386 [place] POC pH Temp NOT REPORTED [facility] [place] POC PO2 90.1 [place] POC pO2 Temp NOT REPORTED mm Hg [place] Positive Base Excess, Art NOT REPORTED [place] Sample Site Left Radial Artery [place] TCO2 (calc), Art 22 mmol/L 22 - 29 mmol/L [place] CBC WITH AUTO DIFFERENTIALon 05-12-2019 Basophils (Bld) [#/Vol] 0.05 10*3/uL [place] Basophils/100 WBC (Bld) 0 % 0 - 2 % [place] Differential Type NOT REPORTED [place] Eosinophils (Bld) [#/Vol] 0.10 10*3/uL [place] Eosinophils/100 WBC (Bld) 1 % 1 - 4 % [place] Erythrocyte distribution width (RBC) [Ratio] 12.9 % 11.8 - 14.4 % [place] Hematocrit (Bld) [Volume fraction] 46.0 % 40.7 - 50.3 % [place] Hemoglobin (Bld) [Mass/Vol] 15.4 g/dL 13 - 17 g/dL [place] Immature granulocytes (Bld) [#/Vol] 0.05 10*3/uL [place] Immature granulocytes (Bld) [#/Vol] 0 % 0 [place] Lymphocytes (Bld) [#/Vol] 1.18 10*3/uL [place] Lymphocytes/100 WBC (Bld) 7 % Low 24 - 43 % [place] MCH (RBC) [Entitic mass] 33.8 pg High 25.2 - 33.5 pg [place] MCHC (RBC) [Mass/Vol] 33.5 g/dL 28.4 - 34.8 g/dL [place] MCV (RBC) [Entitic vol] 100.9 fL 82.6 - 102.9 fL [place] Monocytes (Bld) [#/Vol] 0.58 10*3/uL [place] Monocytes/100 WBC (Bld) 4 % 3 - 12 % [place] Platelet mean volume (Bld) [Entitic vol] 9.9 fL 8.1 - 13.5 fL [place] Platelets (Bld) [#/Vol] NOT REPORTED [place] Platelets (Bld) [#/Vol] 235 10*3/uL [place] RBC (Bld) [#/Vol] 4.56 10*6/uL 4.21 - 5.7 7 m/uL [place] RBC morphology finding Nom (Bld) NOT REPORTED [place] Segmented neutrophils/100 WBC (Bld) 88 % High 36 - 65 % [place] Segs Absolute 14.55 High [place], [place] WBC (Bld) [#/Vol] 16.5 10*3/uL [place] WBC (Bld) [#/Vol] 0.0 10*3/uL 0.0 per 10 0 WBC [place] WBC Morphology NOT REPORTED [place], KY CKon 05-12-[place] [address] U/L High 39 - 308 U/L [place] Comprehensive Metabolic Pane jrodan 05-12-2019 Albumin [Mass/Vol] 3.8 g/dL 3.5 - 5.2 g/dL [place] Albumin/Globulin [Mass ratio] 1.2 {ratio} [place] ALP [Catalytic activity/Vol] 81 U/L 40 - 129 U/L [place] ALT [Catalytic activity/Vol] 61 U/L High 5 - 41 U/L [place] Anion gap [Moles/Vol] 15 mmol/L 9 - 17 mmol/L [place] AST [Catalytic activity/Vol] 121 U/L High <40 [place] Bilirubin Ql (U) 0.77 mg/dL 0.3 - 1.2 mg/dL [place] Bun/Cre Ratio NOT REPORTED [place], [place] Calcium [Mass/Vol] 8.3 mg/dL Low 8.6 - 10. 4 mg/dL [place] Chloride [Moles/Vol] 103 mmol/L 98 - 10 7 mmol/L [place] CO2 [Moles/Vol] 23 mmol/L 20 - 31 mmol/L [place] Creatinine [Mass/Vol] 1.13 mg/dL 0.7 - 1.2 mg/dL [place] GFR >60 >60 mL/min [place] GFR Non- >60 >60 mL/min [place] GFR/1.73 sq M predicted among non-blacks MDRD (S/P/Bld) [Vol rate/Area] NOT REPORTED [place] GFR/1.73 sq M predicted among non-blacks MDRD (S/P/Bld) [Vol rate/Area] [place] Comment on above: Average GFR for 40-4 9 years old: 99 mL/min/1.73sq m Chronic Kidney Disease: <60 mL/min/1.73sq m Kidney failure: <15 mL/min/1.73sq m eGFR calculated using average adult body mass. Additional eGFR calculator available at: http://www.Vicampo/multiple_crcl_2012.htm Glucose [Mass/Vol] 90 mg/dL 70 - 99 mg/dL [place] Potassium [Moles/Vol] 4.6 mmol/L 3.7 - 5.3 mmol/L [place] Protein [Mass/Vol] 6.9 g/dL 6.4 - 8.3 g/dL [place] Sodium [Moles/Vol] 141 mmol/L 135 - 144 mmol/L [place] Urea nitrogen [Mass/Vol] 17 mg/dL 6 - 20 mg/dL [place] Drugon 05-12-2019 Ethanol [Mass/Vol] mg/dL <10 mg/dL [place] Hematologyon 05-12-2019 aPTT Coag (Bld) [Time] 23.8 s [place] INR Coag (PPP) [Relative time] 1.0 {INR} [place] Comment on above: Therapeutic Range: Moderate Anticoagulant Intensity: INR = 2.0-3.0 High Anticoagulant Intensity: INR = 2.5-3.5 PT Coag (PPP) [Time] 10.5 s [place] MAGNESIUMon 05-12-2019 Magnesium [Mass/Vol] 1.6 mg/dL 1.6 - 2 .6 mg/dL [place], [place] MYOGLOBIN, SERUMon 9 Myoglobin [Mass/Vol] 1739 ng/mL High 28 - 72 ng/mL [place], [place] Metabolic Panelon 05-12-2019 Ammonia (P) [Mass/Vol] 17 umol/L 16 - 60 umol/L [place] Calcium [Mass/Vol] 1.06 mmol/L Low 1.13 - 1. 33 mmol/L [place] Otheron 05-12-2019 Acetaminophen [Mass/Vol] <5 Low 10 - 30 ug/mL [place] Amorphous, UA NOT REPORTED None [place], [place] Bacteria, UA NOT REPORTED None [place] Bilirubin Urine Negative NEGATIVE [place] Casts UA 5 TO 10 HYALINE Reference range defined for non-centrifuged specimen. [place] Color, UA YELLOW YELLOW [place] Crystals UA NOT REPORTED None /HPF [place], [place] Culture DUE TO THE SPECIMEN TYPE, THE ORDER WAS CANCELED AND REORDERED. PLEASE REFER TO: MRSA DNA NASAL [place] Epithelial Cells UA None [place] Ethanol percent <0.010 <0.010 % [place] Glucose, Ur Negative NEGATIVE [place] Interpretation and review of laboratory results Abnormal [place] Lactic Acid, Whole Blood 2.5 mmol/L High 0.7 - 2.1 mmol/L [place] Mucus, UA NOT REPORTED None [place], [place] Nitrite, Urine Negative NEGATIVE [place] Other Observations UA NOT REPORTED NOT REQ. [place] pH, UA 5.0 [place] RBC (U) [#/Vol] 2 TO 5 [place] Comment on above: Reference range defi saniya for non-centrifuged specimen. Renal Epithelial, Urine NOT REPORTED 0 /HPF [place] Salicylate Lvl <1 Low 3 - 10 mg/dL [place], [place] Special Requests NOT REPORTED [place] Specific [place], UA 1.016 [place], [place] Specimen Description .NARES [place] Toxic Tricyclic Sc,Blood Negative NEGATIVE [place] Trichomonas, UA NOT REPORTED None [place], [place] Turbidity UA CLEAR CLEAR [place], [place] Urinalysis Comments NOT REPORTED [place], [place] Urine Hgb MODERATE Abnormal NEGATIVE [place] Urobilinogen, Urine Normal Normal [place] WBC, UA 2 TO 5 [place] Yeast, UA NOT REPORTED None [place] EXAMINATION: ONE XRA Y VIEW OF THE CHEST 05/12/2019 5:48 pm COMPARISON: None. HISTORY: ORDERING SYSTEM PROVIDED HISTORY: Transfer, intubated TECHNOLOGIST PROVIDED HISTORY: Transfer, intubated Reason for Exam: intubated FINDINGS: There is a cervical collar in place. Endotracheal tube tip is just above the clavicular heads approximately 5-6 cm above the roxi. Nasogastric tube tip is below the diaphragm but not included on this study. Monitor leads overlie the chest. Heart size within normal limits. Mild perihilar vascular crowding and patchy atelectasis/airspace disease. Peripheral lungs are grossly clear. No large pleural effusions. No acute osseous abnormality is seen. [place], [place] Reginaldo, Mhpn Incoming Radiant Results From [email or web address] - 05/12/2019 6:09 PM EDT EXAMINATION: ONE XRAY VIEW OF THE CHEST 05/12/2019 5:48 pm COMPARISON: None. HISTORY: ORDERING SYSTEM PROVIDED HISTORY: Transfer, intubated TECHNOLOGIST PROVIDED HISTORY: Transfer, intubated Reason for Exam: intubated FINDINGS: There is a cervical collar in place. Endotracheal tube tip is just above the clavicular heads approximately 5-6 cm above the roxi. Nasogastric tube tip is below the diaphragm but not included on this study. Monitor leads overlie the chest. Heart size within normal limits. Mild perihilar vascular crowding and patchy atelectasis/airspace disease. Peripheral lungs are grossly clear. No large pleural effusions. No acute osseous abnormality is seen. IMPRESSION: Endotracheal tube tip is approximately 5-6 cm above the roxi. Mild patchy perihilar vascular crowding and atelectasis/airspace disease. [place] Endotracheal tube ti p is approximately 5-6 cm above the roxi. Mild patchy perihilar vascular crowding and atelectasis/airspace disease. [place] Urinalysis[place] 05-12-2019 Ketones Ql (U) SMALL Abnormal NEGATIVE [place] Leukocyte esterase Test strip Ql (U) Negative NEGATIVE [place] Protein (U) [Mass/Vol] Negative NEGATIVE [place] Social History Date Type Detail Facility Start: 11-18-2023 Alcohol intake Current drinke r of alcohol (finding) [facility] Start: 09-03-2023 Alcohol intake Ex-drinker (finding) [facility] Start: 09-03-2023 End: 10-03-[address] [facility] Start: 09-03-2023 Alcohol Comment not currently drinking [facility] Start: 05-02-2023 End: 06-08-2023 Not Known [facility] [place] Start: 05-15-2019 End: 07-16-2022 Tobacco use and exposure Smokeless tobacco non-user [facility] Start: 05-15-2019 Tobacco Comment pt nonsmoker Jayde Gerardo [place] Start: 05-12-2019 End: 05-15-2019 Tobacco smoking status NHIS Never smoker [facility] Start: 05-12-2019 End: 10-03-2023 Alcohol intake Yes [facility] [place] Start: 05-12-2019 Alcohol Comment 1 bottle of ch eap liquor a day [place], [place] Start: 1980 Sex Assigned At Male F [facility] Start: 1980 Sex Assigned At Not on file [place] Tobacco smoking stat us NHIS Unknown if ever smoked [facility] Has the electric, [employer] s, oil, or water company threatened to shut off services in your home in past 12Mo No [facility] Do you belong to any clubs or organizations such as restoration groups, unions, fraternal or athletic groups, or school groups? Yes [facility] Are you now , , , , never or living with a partner? [facility] How often to you hav e a drink containing alcohol? Never [facility] How many standard dr inks containing alcohol do you have on a typical day? Patient does not drink [facility] Do you feel stress - tense, restless, nervous, or anxious, or unable to sleep at night because your mind is troubled all the time - these days [OSQ] Not at all [facility] Vital Signs Date Time Vital Sign Value Performing Clinician Facility 09-03-2023 13:48-0500 Body height 175.3 cm Shakeel Furlong DO Work Phone: [facility] [place] [facility] 09-03-2023 13:48-0500 Body mass index (BMI) [Ratio] 38.85 kg/m2 Shakeel Furlong DO Work Phone: [facility] [place] [facility] 09-03-2023 13:48-0500 Body temperature 97.39 [degF] Shakeel Furlong DO Work Phone: [facility] [place] [facility] 09-03-2023 13:48-0500 Body weight 119.34 kg Shakeel Furlong DO Work Phone: [facility] [place] [facility] 09-03-2023 13:48-0500 Diastolic blood pressure 90 mm[Hg] Shakeel Furlong DO Work Phone: [facility] [place] [facility] 09-03-2023 13:48-0500 Heart rate 102 /min Shakeel Furlong DO Work Phone: [facility] 09-03-2023 13:48-0500 SaO2% (BldA) [Mass fraction] 99 % Shakeel Furlong DO Work Phone: [facility] [place] [facility] 09-03-2023 13:48-0500 Systolic blood pressure 150 mm[Hg] Shakeel Furlong DO Work Phone: [facility] 06-12-2023 07:30-0400 Body temperature 98 [degF] DO Shakeel Furlong Work Phone: [facility] 06-12-2023 07:30-0400 Diastolic blood pressure 83 mm[Hg] DO Shakeel Furlong Work Phone: [facility] 06-12-2023 07:30-0400 Heart rate 60 /min DO Shakeel Furlong Work Phone: [facility] 06-12-2023 07:30-0400 Respiratory rate 16 /min DO Shakeel Furlong Work Phone: [facility] 06-12-2023 07:30-0400 SaO2% (BldA) [Mass fraction] 95 % DO Shakeel Kaye Work Phone: [facility] 06-12-2023 07:30-0400 Systolic blood pressure 134 mm[Hg] DO Shakeel Kaye Work Phone: [facility] 06-10-2023 14:40-0400 Body height 175.26 cm DO Shakeel Kaye Work Phone: [facility] 06-10-2023 09:00-0400 Body weight 100.81 kg DO Shakeel Kaye Work Phone: [facility] 06-07-2023 15:25-0400 Inhaled oxygen flow rate 2 L/min DO Shakeel Kaye Work Phone: [facility] 05-02-2023 10:29-0400 Body height 175.26 cm MD Josiah Linder MD [employer] 05-02-2023 10:29-0400 Body mass index (BMI) [Ratio] 32.35 kg/m2 MD Josiah Linder MD [employer] 05-02-2023 10:29-0400 Body temperature 97.88 [degF] MD Josiah Linder MD [employer] 05-02-2023 10:29-0400 Body weight 99.37 kg MD Josiah Linder MD [employer] 05-02-2023 10:29-0400 Diastolic blood pressure 91 mm[Hg] MD Josiah Linder MD [employer] 05-02-2023 10:29-0400 Heart rate 67 /min MD Josiah Linder MD [employer] 05-02-2023 10:29-0400 Inhaled oxygen concentration 98 % MD Josiah Linder MD [employer] 05-02-2023 10:29-0400 Respiratory rate 18 /min MD Josiah Linder MD [facility] [place] 05-02-2023 10:29-0400 Systolic blood pressure 122 mm[Hg] MD Josiah Linder MD [facility] [place] 03-24-2023 07:30-0400 Body temperature 97.4 [degF] DO Shakeel Furlong Work Phone: [facility] 03-24-2023 07:30-0400 Diastolic blood pressure 78 mm[Hg] DO Shakeel Furlong Work Phone: [facility] 03-24-2023 07:30-0400 Heart rate 56 /min DO Shakeel Furlong Work Phone: [facility] 03-24-2023 07:30-0400 Respiratory rate 16 /min DO Shakeel Furlong Work Phone: [facility] 03-24-2023 07:30-0400 SaO2% (BldA) [Mass fraction] 97 % DO Shakeel Furlong Work Phone: [facility] 03-24-2023 07:30-0400 Systolic blood pressure 134 mm[Hg] DO Shakeel Furlong Work Phone: [facility] 03-21-2023 14:17-0400 Body height 175.26 cm DO Shakeel Furlong Work Phone: [facility] 03-20-2023 22:50-0400 Body weight 96.7 kg DO Shakeel Furlong Work Phone: [facility] 03-20-2023 17:50-0400 Body temperature 98 [degF] DO Shakeel Furlong Work Phone: [facility] 03-20-2023 17:50-0400 Diastolic blood pressure 101 mm[Hg] DO Shakeel Furlong Work Phone: [facility] 03-20-2023 17:50-0400 Heart rate 78 /min DO Shakeel Furlong Work Phone: [facility] 03-20-2023 17:50-0400 Respiratory rate 16 /min DO Shakeel Furlong Work Phone: [facility] 03-20-2023 17:50-0400 SaO2% (BldA) [Mass fraction] 96 % DO Shakeel Furlong Work Phone: [facility] 03-20-2023 17:50-0400 Systolic blood pressure 167 mm[Hg] DO Shakeel Furlong Work Phone: [facility] 03-20-2023 17:46-0400 Body height 175.26 cm DO Shakeel Furlong Work Phone: [facility] 03-20-2023 17:46-0400 Body weight 96.7 kg DO Shakeel Furlong Work Phone: [facility] 01-24-2023 09:18-0400 Diastolic blood pressure 85 mm[Hg] DO Shakeel Furlong Work Phone: [facility] 01-24-2023 09:18-0400 Heart rate 68 /min DO Shakeel Furlong Work Phone: [facility] 01-24-2023 09:18-0400 Respiratory rate 16 /min DO Shakeel Furlong Work Phone: [facility] 01-24-2023 09:18-0400 SaO2% (BldA) [Mass fraction] 98 % DO Shkaeel Furlong Work Phone: [facility] 01-24-2023 09:18-0400 Systolic blood pressure 123 mm[Hg] DO Shakeel Furlong Work Phone: [facility] 01-24-2023 07:04-0400 Body height 175.26 cm DO Shakeel Furlong Work Phone: [facility] 01-24-2023 07:04-0400 Body temperature 97.6 [degF] DO Shakeel Kaye Work Phone: [facility] 01-24-2023 07:04-0400 Body weight 104.32 kg DO Shakeel Kovacsng Work Phone: [facility] 11-09-2022 10:30-0500 Body height 175.26 cm Jonathan Workman Other [employer] Other 11-09-2022 10:30-0500 Body mass index (BMI) [Ratio] 34.4 kg/m2 Jonathan Workman Other [employer] Other 11-09-2022 10:30-0500 Body weight 105.69 kg Jonathan Workman Other [employer] Other 11-09-2022 10:30-0500 Diastolic blood pressure 94 mm[Hg] Jonathan Workman Other [employer] Other 11-09-2022 10:30-0500 Systolic blood pressure 147 mm[Hg] Jonathan Denisepeyton Other [employer] Other 08-06-2022 10:53-0500 Body weight 0 kg DO Lee Mtz Work Phone: [facility] 04-09-2022 09:30-0400 Body height 175.26 cm Elizabeth Dempsey Other [employer] Other 04-09-2022 09:30-0400 Body mass index (BMI) [Ratio] 32.48 kg/m2 Elizabeth Dempsey Other [employer] Other 04-09-2022 09:30-0400 Body weight 99.79 kg Elizabeth Dempsey Other [facility] [employer] Other 05-18-2019 07:13-0400 Body Temperature 97.9 [degF] [facility] [place] 05-18-2019 07:13-0400 BP Diastolic 89 mm[Hg] [facility] [place] 05-18-2019 07:13-0400 BP Systolic 134 mm[Hg] [facility] [place] 05-18-2019 07:13-0400 Pulse (Heart Rate) 85 /min [facility] [place] 05-18-2019 07:13-0400 Respiratory Rate 14 /min [facility] 05-16-2019 19:31-0400 Pulse Oximetry 99 % [facility] [place] 05-15-2019 23:11-0400 BMI (Body Mass Index) 32.28 kg/m2 [facility] [place] 05-15-2019 23:11-0400 Body weight 102.06 kg [facility] [place] 05-15-2019 23:11-0400 Height 177.8 cm [facility] [place] 05-15-2019 11:15-0400 Body Temperature 97.81 [degF] [facility], [place] 05-15-2019 11:15-0400 BP Diastolic 103 mm[Hg] [facility] , [place] 05-15-2019 11:15-0400 BP Systolic 135 mm[Hg] [facility] [place] 05-15-2019 11:15-0400 Pulse (Heart Rate) 71 /min [facility] 05-15-2019 11:15-0400 Pulse Oximetry 94 % [facility] [place] 05-15-2019 11:15-0400 Respiratory Rate 18 /min [facility] [place] 05-13-2019 06:00-0400 BMI (Body Mass Index) 31.19 kg/m2 [facility] [place] [place] 05-13-2019 06:00-0400 Body weight 104.3 kg [facility] [place] 05-12-2019 16:21-0400 Height 182.9 cm [facility] [place] Functional Status Date Assessment Result Facility 06-12-2023 Functional status Patient at Baseline [facility] Work Phone: 03-24-2023 Functional status Patient at Baseline [facility] Work Phone: Mental Status Date Assessment Result Facility 06-12-2023 Cognitive function Cognitive Sta tus Patient at Baseline [facility] Work Phone: 03-24-2023 Cognitive function Cognitive Sta tus Patient at Baseline [facility] Work Phone: Clinical Notes 04-05-2022 to 02-21-2024 Significant Event - Shakeel Kaye, DO - 09/03/2023 2:31 PM ESTSignificant Event - Shakeel Kaye, DO - 09/03/2023 2:31 PM ESTDennis David Kaye, DO - 09/03/2023 2:00 PM EST Note Date & Type Note Facility 02-21-2024 Note [facility] Note Reason for cardiology consult: Patient here for follow up [facility] and [facility] back in Oct 2023. He was seen as inpatient consult by Ирина Angulo CNP while inpatient at [facility]. Chief Complaint: Dyspnea on exertion HPI: Kandice Polanco is a 43 y.o. male The patient was admitted end of September 2023 at [facility] because of acute respiratory failure with hypoxia which was felt to due to alcoholic bilateral aspiration pneumonia, also he had alcohol withdrawal symptoms, acute renal insufficiency and mildly elevated troponin. His echo at that time showed normal left ventricle systolic function without wall motion abnormalities. Because of respiratory failure and severe alcohol withdrawal symptoms the patient was transferred to [facility], he had bilateral PEs on 10/10/2023 with concern regarding DVT, and he ended up with ARDS required placing him on ECMO on 10/19/2023 and he was taken off it on 11/08/2023. He had PEA cardiac arrest twice due to pericardial tamponade required pericardiocentesis twice. The acute renal insufficiency required hemodialysis. Also the course was complicated by A-fib with RVR. Also he developed Enterococcus faecalis septicemia and Klebsiella UTI requiring treatment with antibiotics. He was transferred on 11/20/2023 to long-term acute care [facility]. He was transferred later to a skilled nursing in [facility]. He lives now with his parents. He states that he feels much better. He is back to be active however he still feels short of breath when he walks longer distance. He denies any chest discomfort at rest or with exertion. He denies orthopnea or paroxysmal nocturnal dyspnea or dizziness or palpitation. He admits legs edema particularly in the feet and sometimes it is bad. He states that he never smoked. He drank alcohol only 1 time since he was discharged from the hospital. He is planning not to go back to alcoholism. He states that he is still depressed despite being on medications. ROS: All systems were reviewed and they were negative except for the positive findings noted above in the history Past Medical History He has no past medical history on file. Surgical History He has no past surgical history on file. Social History He has no history on file for tobacco use, alcohol use, and drug use. Family History No family history on file. Allergies Patient has no allergy information on record. Medications No current outpatient medications on file. Last Recorded Vitals There were no vitals taken for this visit. Physical Examination: GENERAL: alert and oriented x3, well developed, in no acute distress. HEAD: atraumatic, normocephalic. EYES: ANA, EOMI. NECK: trachea midline, no JVD present, no carotid bruits present. CARDIAC: S1, S2 present. RRR. No murmur, rubs, or gallops. RESPIRATORY: CTAB, no increased effort of breathing, no rales, rhonchi, or wheezing. ABDOMEN: soft, nontender, nondistended. EXTREMITIES: Mild edema of the ankles and the feet, peripheral pulses are 2+ bilaterally. No rash/skin discoloration present. NEURO: strength/sensation equal and symmetric in bilateral upper and lower extremities. PSYCH: appropriate mood, affect, and judgement. Labs: CBC: 12/13/2023 white blood count 12.6, hemoglobin 11.3, platelets 558 PT/INR 11/10/2023 PT 16.1, INR 1.3 BMP: 12/12/2023 sodium 138, potassium 3.7, glucose 84, BUN 11, creatinine 0.8, calcium 8.9, LFTs 12/12/2023 total protein 6.6, albumin 3.3, alk phos 145, ALT 16, AST 25 Lipids: 11/12/2023 triglyceride 175 Last Images: EKG performed today 02/21/2024 showed normal sinus rhythm, heart rate 83 bpm, incomplete right bundle branch block, poor R progression in V1 to V4 cannot rule out anterior infarct, no significant T or ST changes EKG 12/03/2023 reported to show normal sinus rhythm, heart rate 83 bpm and nonspecific T wave abnormalities ECMO,Date of Procedure: 10/19/2023 at [facility] Pre-Op Diagnosis Codes: * ARDS (adult respiratory distress syndrome) (HCC) [J80] Refractory hypoxia Post-Op Diagnosis: Same Procedure(s): EXTRA CORPOREAL MEMBRANE OXYGENATION CANNULATION Surgeon(s): George Blue MD Singh, Hemindermeet, MD Anesthesia: General Estimated Blood Loss (mL): 200 Complications: None Findings: Successful implantation of 32 F Single access Dual lumen VV ECMO Cannula ([place]) via right IJ access. Successful insertion of 9 Fr central venous line in left CFV Echo 11/05/2023 Left ventricle: normal left ventricular systolic function. EF 3D is 56%. Normal wall motion Aortic valve: trileaflet valve Right atrium: right atrium is dilated. ECMO cannula present in the right atrium. Cannula appears in good position with jet flow directed toward tricuspid valve and into right ventricle. Pericardium: trivial anterior pericardial effusi (more content not included)... [facility] 09-03-2023 Progress note Formatting of t his note might be different from the original. Quit a few months ago [facility] 09-03-2023 Miscellaneous Notes Quit a few months ago documented in this encounter [facility] 09-03-2023 History of Present illness Narrative Subjective Patient ID: Kandice Polanco is a 43 y.o. male. Kandice presents for his annual wellness exam. He has no new problems to report. He was drinking a lot last year but has been sober for a couple months now. He does not remember the exact date but it was after he was hospitalized for alcohol intoxication. He is seeing Psychiatry and they did adjust his medications since his last visit. He would like a flu shot at this time if he can. He has moved back into his parent's house to live with them. He is currently not working. He is put on a lot of weight since his last visit. He admits to not eating healthy. The following portions of the patient's history were reviewed and updated as appropriate: allergies, current medications, past family history, past medical history, past social history, past surgical history, problem list, and medication reconciliation was completed including current medication and post discharge medication. Review of Systems Constitutional: Positive for unexpected weight change. HENT: Negative. Eyes: Negative. Respiratory: Negative. Cardiovascular: Negative. Gastrointestinal: Negative. Endocrine: Negative. Genitourinary: Negative. Musculoskeletal: Negative. Skin: Negative. Allergic/Immunologic: Negative. Neurological: Negative. Hematological: Negative. Psychiatric/Behavioral: Positive for dysphoric mood and sleep disturbance. The patient is nervous/anxious. Objective Physical Exam Vitals reviewed. Constitutional: Appearance: He is obese. HENT: Head: Normocephalic and atraumatic. Eyes: General: No scleral icterus. Extraocular Movements: Extraocular movements intact. Conjunctiva/sclera: Conjunctivae normal. Cardiovascular: Rate and Rhythm: Normal rate and regular rhythm. Pulses: Normal pulses. Heart sounds: Normal heart sounds. No murmur heard. Pulmonary: Effort: Pulmonary effort is normal. No respiratory distress. Breath sounds: Normal breath sounds. No wheezing, rhonchi or rales. Abdominal: General: Bowel sounds are normal. Palpations: Abdomen is soft. There is no mass. Tenderness: There is no abdominal tenderness. Musculoskeletal: General: Normal range of motion. Cervical back: Neck supple. No tenderness. Right lower leg: No edema. Left lower leg: No edema. Lymphadenopathy: Cervical: No cervical adenopathy. Skin: General: Skin is warm and dry. Findings: No lesion or rash. Neurological: General: No focal deficit present. Mental Status: He is alert and oriented to person, place, and time. Cranial Nerves: Cranial nerves 2-12 are intact. Gait: Gait is intact. Psychiatric: Attention and Perception: Attention normal. Mood and Affect: Mood and affect normal. Speech: Speech normal. Behavior: Behavior normal. Behavior is cooperative. Thought Content: Thought content normal. Cognition and Memory: Cognition normal. Judgment: Judgment normal. Assessment/Plan Kandice was seen today for annual exam. Diagnoses and all orders for this visit: Well adult health check - Comprehensive metabolic panel; Future - Lipid panel; Future Health maintenance discussed. Check labs. Alcohol use disorder, severe, dependence (CMS-HCC) Patient has been sober for several months. He was congratulated and encouraged to continue. He is going to narcotics anonymous. Needs flu shot - Influenza, Injectable, Quadrivalent, Preservative Free Patient requests a flu shot and was given flu shot. Vitamin D deficiency - Vitamin D 25 hydroxy; Future Check vitamin-D level Class 2 severe obesity due to excess calories with serious comorbidity and body mass index (BMI) of 38.0 to 38.9 in adult He is obese. He would benefit from weight loss. Diet exercise and weight loss discussed and encouraged. MDD (major depressive disorder), severe (CMS-HCC) Stable. Follow-up with specialist as directed. Essential hypertension Blood pressure is elevated. He does have access to a blood pressure cuff. His mom has 1. He was encouraged to monitor his blood pressure and record results. His olmesartan was discontinued by a previous clinician and may need to restart. Avoiding alcohol should help lower blood pressure. Weight loss would also help. Abnormal liver function Check liver function tests documented in this encounter [facility] 06-12-2023 Hospital Discharge instructions Additional Instructions Important Contact Information You can call [facility] at [phone] any time day or night if you have emergent questions or question regarding discharge instructions. If at any time you are feeling an increase in your psychiatric symptoms, call your physician or behavioral healthcare provider. If any time you have thoughts of harming yourself or others contact one of the following: Call 98-8 (available 25/03) Crisis Text Line (available 25/03) text 4HOPE to [phone] [facility] Hope Line (available 8 a.m. Midnight) call [phone] ([phone]) Your Gabapentin dose had to be ordered as 2 separate orders due to the dosing. You should be on Gabapentin 700mg three times a day. Regular diet No activity restrictions [facility] Work Phone: 06-11-2023 Progress note Note Date/Time June 11, 2023 7:55am [facility] [address] [place] [address] Psychiatry Progress Note Signed Patient: Kandice Polanco MR#: [id number] : 1980 Acct:[id number] Age/Sex: 43 / M Adm Date: 3 Loc: Room: [address] [place] [address] Type : ADM IN Attending Dr: Bradford Fajardo MD Copies to: ~ Date of Service: 06/11/2023 Subjective Subjective Narrative: Mr. Polanco feels like he is feeling better. Anxiety is moderate in intensity with attempted utilization of coping skills. He denies SI/HI and verbalized the intent to notify staff if he has such thoughts. His symptoms improving and his affect is becoming brighter. He continues to be compliant with prescribed medications and is visible within the unit milieu. He alluded to psychosocial stressors being the primary issue that he is struggling with. We have agreed to continue the current medications regimen. Risks, benefits, and indications of medications were discussed. He said his mom may draft roller picker him tomorrow. He has no hx of recent attempts, and has been future oriented, participated in group activities, articulated needs appropriately, and displayed no self-harm behaviors. Imminent risk is low given factors noted above. Further inpatient hospitalization unlikely to mitigate chronic suicide risk, and pt agrees to f/u with outpatient psych care. All lab results discussed with patient. We also discussed prognosis of illness and importance of outpatient CBT. Appearance: dressed casually Mental Status: mental status grossly normal Mood: Euthymic mood Affect: Normal affect Speech and Movement: speech and movement normal and speech clear Attitude: cooperative Thought Process: normal Thought Content: Denied hallucinations, no homicidality and no suicidality Insight: fair Judgment: fair Impulse control: fair Exam Physical Exam Vital Signs: Temp Pulse Resp BP Pulse Ox O2 Del Method O2 Flow Rate 98 F 66 16 115/83 95 Room Air 2 06/10/23 20:00 06/10/23 20:00 06/10/23 20:00 06/10/23 20:00 06/10/23 20:00 06/10/23 20:00 06/07/23 15:25 Assessment/Plan Assessment/Plan (1) Major depressive disorder, recurrent, moderate: Code(s): F33.1 - Major depressive disorder, recurrent, moderate Status: Acute (2) Alcohol use disorder: Code(s): F10.90 - Alcohol use, unspecified, uncomplicated Status: Acute Plan Patient reports improvement of depression, anxiety and suicidal thoughts. No SI/HI. Continue Prozac 20 mg daily, Zyprexa 15 mg at bedtime, BuSpar 10 mg 3 times a day, doxepin 10 mg at bedtime and clonidine 0.2 at bedtime Continue gabapentin 600 mg 3 times a day Continue to monitor mental status Encourage group participation and medication compliance Risk benefits alternatives explained Documented By: Dwain Vann MD 3 0754 Signed By: <Electronically signed by Dwain Vann MD> 06/11/23 0755 [facility] Work Phone: 1(740) 212-126710-09-2023 Progress note Author Dwain mercado [facility] June 10, 2023 8:32am Note Date/Time June 10, 2023 8: 32am [facility] [address] [place] [address] Psychiatry Progress Note Signed Patient: Kandice Polanco MR#: [id number] : 1980 Acct:[id number] Age/Sex: 43 / M Adm Date: 3 Loc: 1S Room: [address] [place] [address] Type : ADM IN Attending Dr: Bradford Fajardo MD Copies to: ~ Date of Service: 06/10/2023 Subjective Subjective Narrative: Mr. Polanco feels like he is starting to notice some improvement. He reported that he is still struggling in dealing with a lot of depression and anxiety. Hildao far tolerated the increased dose of his medications. Reported that his sleepis okay and appetite has been okay so far. He is moving with his parents to get some help for his mental health. Mental Status Exam: Appearance: grossly normal Mental Status: mental status grossly normal Mood: ok mood Affect: dysphoric affect Speech and Movement: speech and movement normal and speech clear Attitude: cooperative Thought Process: normal Thought Content: Denied hallucinations, no homicidality, reported suicidality Insight: fair Judgment: fair Exam Physical Exam Vital Signs: Temp Pulse Resp BP Pulse Ox O2 Del Method O2 Flow Rate 97.5 F L 59 L 16 118/79 97 Room Air 2 06/09/23 20:00 06/10/23 00:00 06/10/23 04:00 06/10/23 00:00 06/10/23 00:00 06/10/23 00:00 06/07/23 15:25 Assessment/Plan Assessment/Plan (1) Major depressive disorder, recurrent, moderate: Code(s): F33.1 - Major depressive disorder, recurrent, moderate Status: Acute (2) Alcohol use disorder: Code(s): F10.90 - Alcohol use, unspecified, uncomplicated Status: Acute Plan Patient reports improvement of depression, anxiety and suicidal thoughts Continue Prozac 20 mg daily, Zyprexa 15 mg at bedtime, BuSpar 10 mg 3 times a day, doxepin 10 mg at bedtime and clonidine 0.2 at bedtime Continue gabapentin 600 mg 3 times a day Continue to monitor mental status Encourage group participation and medication compliance Risk benefits alternatives explained Documented By: Dwain Vann MD 3 0830 Signed By: <Electronically signed by Dwain Vann MD> 06/10/23 0832 [facility] Work Phone: 1(181) 115-984010-08-2023 Progress note Author Bradford Fajardo [facility] June 09, 2023 11:56am Note Date/Time June 09, 2023 11 :55am [facility] [address] [place] [address] Psychiatry Progress Note Signed Patient: Kandice Polanco MR#: [id number] : 1980 Acct:[id number] Age/Sex: 43 / M Adm Date: 3 Loc: 1S Room: [address] [place] [address] Type : ADM IN Attending Dr: Bradford Fajardo MD Copies to: ~ Date of Service: 06/09/2023 Subjective Subjective Narrative: Mr. Polanco feels like he had not made much improvement. He reported that he is still struggling in dealing with a lot of depression and anxiety. He so far tolerated the increased dose of his medications. Reported that his sleep is okay and appetite has been okay so far. Mental Status Exam: Appearance: grossly normal Mental Status: mental status grossly normal Mood: dysthymic mood Affect: dysphoric affect Speech and Movement: speech and movement normal and speech clear Attitude: cooperative Thought Process: normal Thought Content: Denied hallucinations, no homicidality, reported suicidality Insight: fair Judgment: fair Exam Physical Exam Vital Signs: Temp Pulse Resp BP Pulse Ox O2 Del Method O2 Flow Rate 97.5 F L 60 16 133/94 98 Room Air 2 06/09/23 07:53 06/09/23 07:53 06/09/23 07:53 06/09/23 07:53 06/09/23 07:53 06/09/23 09:00 06/07/23 15:25 Assessment/Plan Assessment/Plan (1) Major depressive disorder, recurrent, moderate: Code(s): F33.1 - Major depressive disorder, recurrent, moderate Status: Acute (2) Alcohol use disorder: Code(s): F10.90 - Alcohol use, unspecified, uncomplicated Status: Acute Plan Continues to report some depression, anxiety and suicidal thoughts Continue Prozac 20 mg daily, Zyprexa 15 mg at bedtime, BuSpar 10 mg 3 times a day, doxepin 10 mg at bedtime and clonidine 0.2 at bedtime Increase gabapentin 600 mg 3 times a day Continue to monitor mental status Encourage group participation and medication compliance Risk benefits alternatives explained Documented By: Bradford Fajardo MD 06/09/231153 Signed By: <Electronically signed by Bradford Fajardo MD> 06/09/231155 [facility] Work Phone: 1(698) 407-106210-07-2023 History and physical note Author Bradford Fajardo [facility] June 08, 2023 12:43pm Note Date/Time June 08, 2023 12 :42pm [facility] [address] [place] [address] Psychiatry H&P Signed Patient: Kandice Polanco MR#: [id number] : 1980 Acct:[id number] Age/Sex: 43 / M Adm Date: 3 Loc: 1S Room: [address] [place] [address] Type: ADM IN Attending Dr: Bradford Fajardo MD Copies to: MD Shakeel Espana DO~ Date of Service: 06/08/2023 HPI History of Present Illness History of present illness: Mr. Polanco is a 43 year old male who presented due to concern for depression andsuicidal ideation to hang himself. He had written a note to his parents about why. Upon assessment, patient reported he fell into drinking. He reported that over the past 1 week he has been drinking a big bottle of vodka every day. He reported that he has been stressed because his dad has been sick and he had to move from his trailer into his parents house. He reported that he was sternal with depression even before this. Reported low energy, anhedonia, feelings of hopelessness, and suicidal thoughts. He denied any hallucinations. He denied any symptoms of krista at this time. Past psych history: Depression, alcohol use disorder Past hospitalizations: Reported multiple hospitalizations Past suicide attempts: Reported an overdose a few years ago Family psych history: Depression Previous medications: Doxepin, Zyprexa, Lexapro, Neurontin Alcohol and drug use: Alcohol use Living: In trailer Employment: Unemployed Review of symptoms: Constitutional: Denies chills and Denies fever(s) Eyes: Denies change in vision ENT: Denies abnormal hearing Cardiovascular: Denies chest pain Respiratory: Denies chest congestion and Denies cough Gastrointestinal: Denies change in bowel habits Genitourinary: Denies dysuria Musculoskeletal: Denies atrophy and Denies myalgias Integumentary/Breasts: Denies dry skin Neurologic: Denies abnormal gait and Denies abnormal movements Psychiatric: Reports depression and suicidal ideation Physical exam: Const: cooperative Nutritional Appearance: average body habitus Orientation: alert, awake and oriented x3 HEENT: Head normal to inspection, hearing grossly normal bilaterally, external nose normal, face symmetric Eyes: appearance normal, both eyes and all related structures, sclerae normal Neck: normal visual inspection and full ROM Resp: normal respiratory effort, able to speak in complete sentences and symmetric chest movement Cardio: regular rate GI: normal to inspection and non-distended : deferred Skin: no rashes or lesions noted Neuro: CNI: Normal olfaction CNI: normal olfaction CNII: Visual armstrong intact, CNIII,IV,: EOM intact, no nystagmus. Pupils equal, round, reactive to light and accommodation, CNV: Sensation intact to light touch, CNVII: Raises eyebrows, smile/frown, puff out cheeks symmetrically, CNVIII: Hearing intact bilaterally, CNIX,X: Voice normal, soft palate elevation normal, symmetrical, CNXI: Shoulder shrug strong, equal bilaterally, CNXII: Tongue protrusion midline, movement symmetrical. Extrem: normal to inspection and full ROM Mental Status Exam: Appearance: grossly normal Mental Status: mental status grossly normal Mood: dysthymic mood Affect: dysphoric affect Speech and Movement: speech and movement normal and speech clear Attitude: cooperative Thought Process: normal Thought Content: Denied hallucinations, no homicidality, reported suicidality Insight: fair Judgment: fair [facility] Medical History (Updated 06/08/23 @ 12:43 by Bradford Fajardo MD) Acid reflux Anxiety Depression Fatty liver Hypertension Sleep apnea Surgical History [place] teeth removed Family History Mother Hypertension Father Hypertension Grandparent Diabetes Stroke Colon cancer Grandparent Stroke Colon cancer Social History Smoking Status: Unknown if ever smoked Tobacco Type: e-cigarettes Substance Use Type: Alcohol and Marijuana Substance Abuse Comment: Pt drinks one bottle of gas station vodka a day Social History Comments: Lives with parents Meds Medications and Allergies Allergies codeine Allergy (Verified 06/07/23 13:17) Unknown Reaction erythromycin base Adverse Reaction (Verified 06/07/23 13:17) Itching Penicillins Adverse Reaction (Verified 06/07/23 13:17) Itching sulfamethoxazole [From Bactrim] Adverse Reaction (Verified 06/07/23 13:17) Unknown Reaction trimethoprim [From Bactrim] Adverse Reaction (Verified 06/07/23 13:17) Unknown Reaction Home Medications clonidine HCl 0.1 mg tablet 0.2 mg PO HS 15 days #0 tabs 03/23/23 [Rx Confirmed 06/08/23] doxepin 10 mg capsule 10 mg PO QHS 06/08/23 [History Confirmed 06/08/23] escitalopram oxalate 10 mg tablet 10 mg PO DAILY 06/08/23 [History Confirmed 06/08/23] gabapentin 300 mg capsule 300 mg PO TID 06/08/23 [History Confirmed 06/08/23] hydroxyzine pamoate 50 mg capsule 50 mg PO TID For anxiety 06/08/23 [History Confirmed 06/08/23] losartan 50 mg tablet 50 mg PO BID 06/08/23 [History Confirmed 06/08/23] olanzapine 5 mg tablet 15 mg PO QHS 06/08/23 [History Confirmed 06/08/23] Exam Physical Exam Vital Signs: Temp Pulse Resp BP Pulse Ox O2 Del Method O2 Flow Rate 98 F 63 16 136/98 96 Room Air 2 06/08/23 07:48 06/08/23 07:48 06/08/23 07:48 06/08/23 07:48 06/08/23 07:48 06/08/23 07:48 06/07/23 15:25 Results Labs 06/07/23 13:36 06/07/23 13:36 Psychiatry Labs: 06/07/23 06/07/23 06/07/23 13:36 13:36 18:25 RBC 4.78 Hgb 15.6 Hct 45.1 MCV 94.5 MCH 32.6 MCHC 34.5 RDW 13.3 Plt Count 320 MPV 7.2 Sodium 140 Potassium 4.2 Chloride 105 Carbon Dioxide 26.1 Anion Gap 13.1 BUN 20 Creatinine 1.14 Calcium 8.8 Total Bilirubin 0.5 AST 36 ALT 42 Alkaline Phosphatase 92 Total Protein 7.4 Albumin 4.4 Urine Color Yellow Urine Appearance Clear Urine pH 5.5 Ur Specific [place] 1.020 Urine Protein Negative Urine Glucose (UA) Normal Urine Ketones Trace H Urine Occult Blood Negative Urine Nitrite Negative Ur Leukocyte Esterase Negative Assessment/Plan (1) Major depressive disorder, recurrent, moderate: Code(s): F33.1 - Major depressive disorder, recurrent, moderate Status: Acute (2) Alcohol use disorder: Code(s): F10.90 - Alcohol use, unspecified, uncomplicated Status: Acute Plan Patient presenting due to concern for depression and suicidal ideation. Also dealing with some alcohol use issues and withdrawal symptoms We will stop Lexapro and use Prozac 20 mg daily Continue gabapentin 300 mg 3 times a day, Zyprexa 15 mg at bedtime, doxepin 10 mg at bedtime and clonidine 0.2 at bedtime Continue to monitor mental status Encourage group participation and medication compliance Risk benefits alternatives explained Documented By: Bradford Fajardo MD 06/08/23 1237 Signed By: <Electronically signed by Bradford Fajardo MD> 06/08/23 1243 [facility] Work Phone: 1(237) 830-374608-31-2023 Evaluation + Plan note Assessment and Plan from 05/02/2023 10:29 AM: * Why You Were Here: - Assessment and Plan from 05/02/2023 10:22 AM: * Brief Discharge Plan: Continue to hold your blood pressure medications clonidine and olmesartan fornow, as your blood pressure is currently normal without these medicationsContinue to work towards alcohol cessation and you can follow with [facility] today.Please measure your blood pressure once a day at home at different times and record this, and provide us information to your primary care physician. [facility] 08-31-2023 Hospital Discharge instructions Chest Pain/Heart Attack Information from 05/02/2023 10:29 AM: * Has Patient had Chest Pain or an WV during this Visit? : No * It is important to understand risk factors for heart disease : It is important to understand risk factors for heart disease * so you can work with your doctor to help prevent further cardiac : so you can work with your doctorto help prevent further cardiac injury. COPD Information from 05/02/2023 10:29 AM: * Does Patient have a problem/diagnosis of COPD? : No Home Care/Home Equipment for Discharge from 05/02/2023 12:59 PM: * Home Health Agencies : Return to [facility] following Medication Plan/Information for Discharge from 05/02/2023 10:29 AM: * Discharge Medication : None Patient Transfer Information from 05/02/2023 12:59 PM: * Directory of Nursing Homes : No skilled needs Physician Follow-up Plan/Appointments from 05/02/2023 10:55 AM: * Discharge Physician: : Favian Sheppard DO ([id number]) - Hospitalist * Patient stated Primary Care Provider : PCP, Other (PCP) ([facility] [id number]) - Medical * Follow up with PCP in : 5 * Schedule follow up with PCP in: : Day(s) Stroke/TIA Discharge Information from 05/02/2023 10:29 AM: * Does the Patient Have a Problem/Diagnosis of Stroke this visit? : No [facility] 08-31-2023 Discharge summary* Discharge Summary Note : Discharge Disposition & Condition Patient Condition Stable. Hospital Course 43-year-old male pas t medical history of alcohol abuse presenting to ER for detox. Patient found to be hypotensive and with YESSENIA creatinine 1.7. Patient was bolused fluids and maintenance fluids overnight, and both hypotension and YESSENIA completely resolved. Seen by [facility], and the patient is discharged with the understanding that he can go to [facility] and ask for voluntary admission. [facility] [id number] NotePROCEDURE: BRAIN WO CONTRAST - WCT 3000 REASON FOR EXAM: falls; etoh RESULT: Patient Name: KANDICE POLANCO STUDY: BRAIN WO CONTRAST; 05/01/2023 6:06 pm INDICATION: falls; etoh. COMPARISON: No comparison exams available. ACCESSION NUMBER(S): [id number] ORDERING CLINICIAN: TOMASA TINAJERO TECHNIQUE: CT axial images through the Brain were obtained without contrast. FINDINGS: Acute ischemic change: None. Hemorrhage: No evidence of acute intracranial hemorrhage. Mass Effect / Mass Lesion: No significant mass effect. There is no evidence of an intracranial mass or extraaxial fluid collection. Chronic ischemic change: None. Parenchyma: There is no significant volume loss. The brain parenchyma is otherwise within normal limits for age. Ventricles: Normal caliber and morphology. Other: Mild mucosal thickening is noted of the bilateral maxillary sinuses IMPRESSION: No acute intracranial process. Paranasal sinus disease. Dictation workstation: [id number] This exam is available in DICOM format to non-affiliated healthcare facilities on a secure media free searchable basis with prior patient authorization. The patient exposure is reported to a radiation dose index registry. All CT examinations are performed with one or more of the following dose reduction techniques: Automated Exposure Control, Adjustment of mA and/or KV according to patient size, or use of iterative reconstruction techniques. Original Interpreting Physician: HELGA MEEK MD Original Transcribed by/Date: MMODAL May 01 2023 3:07P Original Electronically Signed by/Date: HELGA MEEK MD May 01 2023 6:30P Addendum Interpreting Physician: Addendum Transcribed by/Date: NO ADDENDUM Addendum Electronically Signed by/Date: SYNGO [id number] NotePROCEDURE: SPINE CERVICAL WO CONTRAST - WCT 3025 REASON FOR EXAM: falls; etoh RESULT: Patient Name: KANDICE POLANCO STUDY: SPINE CERVICAL WO CONTRAST; 05/01/2023 6:06 pm INDICATION: falls; etoh; COMPARISON: None available. ACCESSION NUMBER(S): [id number] ORDERING CLINICIAN: TOMASA TINAJERO TECHNIQUE: EXAMINATION: Spiral, high resolution axial images were obtained from the skull base to the cervicothoracic junction with sagittal and coronal planar reconstructions. FINDINGS: CERVICAL RESULT: Counting reference: Craniocervical junction. Alignment: Alignment is anatomic. Craniocervical junction: Craniocervical junction is normal. Bone marrow / fracture: No evidence of a lytic or blastic process in the visualized spine. No evidence of acute or chronic fracture. Cervical soft tissues: The paraspinal soft tissues planes are maintained. C2-C3: Canal and foramina are patent. C3-C4: Disc osteophyte complex and facet hypertrophy is noted. There is mild bony encroachment on the canal. Neural foramina appear patent C4-C5: Disc osteophyte complex is noted. There is mild bony encroachment on the right neural foramen C5-C6: Canal and foramina are patent. C6-C7: Canal and foramina are patent. C7-T1: Canal and foramina are patent. IMPRESSION: DEGENERATIVE CHANGES DISCUSSED ABOVE. NO EVIDENCE OF ACUTE CERVICAL SPINE FRACTURE. Dictation workstation: [id number] This exam is available in DICOM format to non-affiliated healthcare facilities on a secure media free searchable basis with prior patient authorization. The patient exposure is reported to a radiation dose index registry. All CT examinations are performed with one or more of the following dose reduction techniques: Automated Exposure Control, Adjustment of mA and/or KV according to patient size, or use of iterative reconstruction techniques. Original Interpreting Physician: HELGA MEEK MD Original Transcribed by/Date: MMODAL May 01 2023 3:07P Original Electronically Signed by/Date: HELGA MEEK MD May 01 2023 6:28P Addendum Interpreting Physician: Addendum Transcribed by/Date: NO ADDENDUM Addendum Electronically Signed by/Date: JUANIS [id number] NoteHNO ID: [id number] Author: Guadalupe Madrigal RN Service: Nursing Author Type: Registered Nurse Type: Plan of Care Filed: 04/01/2023 5:52 PM Note Text: Attestation signed by Florencio Clement MD at 04/01/2023 7:54 PM Care plan reviewed with team as noted below. Florencio Clement MD 7:54 PM, April 01, 2023 Psychiatry Staff [facility] INPATIENT INTERDISCIPLINARY TREATMENT PLAN UPDATE DATE INITIATED: 04/01/2023 5:51 PM Patient's Goal of Treatment: get my sleep medications right Active Hospital Problems Alcohol use disorder, severe, dependence (HCC) Cannabis use disorder, moderate, dependence (HCC) Mixed obsessional thoughts and acts *MDD (major depressive disorder), severe (HCC) Malnutrition of moderate degree (HCC) Severe recurrent major depression without psychotic features (HCC) Criteria for Discharge: Elimination/reduction of presenting behavior: Pt meets criteria for discharge, denies SI/HI/AVH, reports no symptoms of withdraw, has been medication complaint, follow up plan in place. Denies pain and wishes. Estimated length of stay: Pt discharged 04/01/2023 Interdisciplinary Treatment Plan Date Initiated: 03/26/23 Time Initiated: 2055 Patient Participation in Initial Treatment Plan: Yes Initial Treatment Plan Date: 03/26/23 Other Participants: N/A Strengths/Assets: Insight into illness, Employed, Stable living situation, Able to read and/ or write Limitations: Lacks health literacy, Not adherent with treatment Precautions indicated: Routine Precautions Individualized problems: Mood disorder Problem - Discharge Needs Date Initiated: 03/26/23 Time Initiated: 2057 Discharge Needs: Encourage patient to utilize appropriate coping skills, Encourage patient to maintain sobriety or explore ambivalence re: sobriety Interventions - Nursing: Obtain baseline level of functioning on admission, Administer medications as indicated and monitor patient for effect daily, Provide education to the patient and/or family about the disease process and management as appropriate daily and as needed, Provide non-judgmental supportive, empathetic and comprehensive trauma informed care daily and as needed, Use therapeutic communication skills to develop patient trust and a nurse-patient relationship daily and as needed, Assess for signs of escalating emotions and help identify ways to appropriately express feelings as needed, Assist with developing positive coping behaviors daily and as needed, Assess for escalating behavior and utilize de-escalation skills as needed, Encourage independence with daily functioning daily and as needed, Assist with activities of daily living, utilizing any necessary assistive devices daily and as needed, Monitor nutritional intake daily, Provide a quiet, restful environment to promote sleep/rest daily and as needed, Encourage patient participation in milieu activities daily and as needed Interventions - Social Work: Assess for appropriate level of care and initiate referral upon admission or as needed, Assess Social Determinants of Health upon admission or as needed, Collateral information as needed, Develop aftercare plan, Assist with identifying community/social supports daily or as needed Interventions - Therapy: Develop and discuss leisure education plan, Educate on/promote the utilization of Community Resources daily and as needed, Help patient to identify people, places and things that support recovery and stabilization of mental health, Promote medication compliance as needed, Promote ongoing practice of effective coping strategies daily and as needed, Promote the importance of following up with medical/behavioral health providers daily and as needed Post discharge referrals: Crisis Hotline Number, Individual Counseling, Psychiatry, Residential Treatment Program Identify next level of care: Residential Program Problem - Mood Disorder As evidenced by: Anxiety, Helplessness, Hopelessness Date Initiated: 03/26/23 Time Initiated: 2057 Mood Disorder: Depression Short Term Goals: Patient participates in 2 daily activities by day 3 Target Date Short Term Goals: 04/01/23 Progress Towards Short Term Goals: Adequate for discharge Jail Goals: Patient expresses examples of optimism and hope for the future Target Date Special Needs Caregiver Goals: 04/01/23 Progress Towards Special Needs Caregiver Goals: Adequate for discharge Interventions - Nursing: Obtain baseline level of functioning on admission, Administer medications as indicated and monitor patient for effect daily, Provide education to the patient and/or family about the disease process and management as appropriate daily and as needed, Provide non-judgmental supportive, empathetic and comprehensive trauma informed care da (more content not included)...[id number] NoteHNO ID: [id number] Author: Lilia Regalado LISW Service: Care Management Author Type: Living Specialist Type: Care Mgt Progress Note Filed: 04/01/2023 1:27 PM Note Text: BEHAVIORAL HEALTH SOCIAL WORK DISCHARGE NOTE SERVICE DATE: 04/01/2023 SERVICE TIME: 12:15pm Discharge Information Row Name Admission (Current) from 03/[facility] Psychiatry Follow-Up Appointment Provider Name Dr. Sue Address [address] [facility], [place] [address] fax: [phone] Appointment Date 04/09/23 Appointment Time 11:45am Additional Instructions This appointment is in person. Counselor Follow-Up Appointment Counselor Name Jessica Thakur [facility] Address [address] [place] [address], [place] [address] Appointment Date 04/09/23 Appointment Time 10:00am Additional Instructions Your first visit has to be in person, but follow up visits can be via tele-health as long as your insurance continues to cover it. Discharge Disposition Discharge Disposition Home with Family/Friend Additional Discharge Information Additional Discharge Resources In case of a mental health emergency, call [phone]. Patient/Color Grinder Agreeable With Discharge Plan: Yes FREEDOM OF CHOICE EXPLAINED? Yes. A list of appropriate referrals presented to/discussed with Patient on 04/01/23 at 12:15pm [facility]-owned/affiliated facilities and agencies have been identified Patient/Color Grinder Given/Explained Medicare Discharge Notice (IM letter): Not Applicable TRANSPORTATION ARRANGEMENTS: Car w/ brother PRESCRIPTIONS FILLED PRIOR TO DISCHARGE: Yes, faxed to outside pharmacy: e-scripted ADDITIONAL NOTES: Pt to be d/c'd home today with family. Pt reports improved mood, expresses readiness for d/c home today. Reports that his father is also being discharged from a skilled nursing today after being there for rehab for several months, so is excited for this and to see family. Pt provided with list of local AA meetings, was appreciative. He is agreeable with plans as outlined above. Provided pt with return to work note per his request. He denied any additional needs/concerns at time of d/c. SIGNATURE: ROJELIO Robertson PATIENT NAME: Kandice Polanco DATE: April 01, 2023 TIME: 1:[address] [facility]07-31-2023 NoteHNO ID: [id number] Author: Robyn Mcconnell RPh Service: Pharmacy Author Type: Pharmacist Type: Plan of Care Filed: 04/01/2023 10:30 AM Note Text: DISCHARGE MEDICATION REVIEW BY PHARMACY Patient Name: Kandice Polanco Account #: Data Unavailable Admission Date: 03/26/2023 Date of Contact: April 01, 2023 Time of Contact: 10:29 AM Medication list was reviewed by a Pharmacist for drug interactions or drug related problems:Yes Below is a summary of pharmacist recommendations discussed with LIP: No Recommendations at this time from Discharge Medication List. Robyn Mcconnell RPh April 01, 2023 10:29 AM Pager: [phone] 04/01/2023 10:29 AM Medication List START taking these medications acetylcysteine 600 mg capsule Commonly known as: NAC Take 2 capsules by mouth twice daily. cholecalciferol 1,000 unit Tab tablet Commonly known as: VITAMIN D3 Take 1 tablet by mouth once daily for 55 doses. Start taking on: April 02, 2023 cyanocobalamin 500 mcg tablet Commonly known as: VITAMIN B-12 Take 1 tablet by mouth once daily for 25 doses. Start taking on: April 02, 2023 doxepin 10 mg capsule Commonly known as: SINEquan Take 1 capsule by mouth daily at bedtime. hydrOXYzine HCl 50 mg tablet Commonly known as: ATARAX Take 1 tablet by mouth three times daily as needed for anxiety. melatonin 3 mg tablet Take 1 tablet by mouth daily at bedtime. therapeutic multivitamin-minerals 9 mg iron-400 mcg tablet Commonly known as: THERA-M PLUS Take 1 tablet by mouth daily with breakfast. Start taking on: April 02, 2023 CHANGE how you take these medications gabapentin 300 mg capsule Commonly known as: NEURONTIN Take 1 capsule by mouth twice daily for 60 days. What changed: medication strength how much to take CONTINUE taking these medications BENICAR 40 mg tablet Generic drug: olmesartan dextroamphetamine-amphetamine 10 mg tablet Commonly known as: ADDERALL escitalopram oxalate 10 mg tablet Commonly known as: LEXAPRO Take 1 tablet by mouth once daily. folic acid 1 mg tablet STOP taking these medications cloNIDine HCl 0.2 mg tablet Commonly known as: CATAPRES hydrOXYzine pamoate 50 mg capsule Commonly known as: VISTARIL traZODone 50 mg tablet Commonly known as: DESYREL Where to Get Your Medications These medications were sent to [id number] [place] [address] - [id number] [facility] [phone] [place] [address] [id number] [facility] [id number] acetylcysteine 600 mg capsule cholecalciferol 1,000 unit Tab tablet cyanocobalamin 500 mcg tablet doxepin 10 mg capsule escitalopram oxalate 10 mg tablet gabapentin 300 mg capsule hydrOXYzine HCl 50 mg tablet melatonin 3 mg tablet therapeutic multivitamin-minerals 9 mg iron-400 mcg [facility] NoteHNO ID: [id number] Author: Gabi Higginbotham PA-C Service: Psychiatry Author Type: Physician Scrap Worker Type: Progress Notes Filed: 03/30/2023 8:56 PM Note Text: PROGRESS NOTE BEHAVIORAL HEALTH SERVICE DATE: 03/30/2023 SERVICE TIME: 12:30 PM The Interdisciplinary team met and reviewed treatment goals and discharge planning. Subjective Endorses feeling a lot better. Depression is mild, 3/10, 10 being the worst; depressive feelings are associated to missing his life back home. Denies SI, intent, or plan. Had some anxiety during some phone calls, has been learning coping skills to deal to stress caused by these calls, atarax also is helpful. Slept better with higher dose of gabapentin. Denies cravings for alcohol. Had multiple treatments for alcohol in the past, has a plan to attend AA meetings and counseling. Objective PHYSICAL EXAM: BP 134/88 Pulse 69 Temp 37.1 ?C (98.7 ?F) (Temporal Artery) Resp 16 Ht 175.3 cm (5' 9 ) Wt 95.9 kg (211 lb 6.4 oz) SpO2 95% BMI 31.22 kg/m? MENTAL STATUS EXAMINATION: Appearance: Casually dressed Behavior: Appropriate Orientation: Person, Place, Time and Situation Speech/Language: The patient demonstrates appropriate tone, prosody, michael, phonetics, and syntax Mood/Affect: better /euthymic Thought Form: Coherent Thought Content: Coherent Suicidal Ideations: No suicidal ideation, intent or plan. Homicidal Ideations: No homicidal ideation, intent or plan. Insight: Fair Judgment: Appropriate Memory/Cognition: Intact Psychomotor: Psychomotor activity was normal NEW PROBLEMS ON UNIT SINCE LAST ENCOUNTER: None Current Facility-Administered Medications Medication Dose Route Frequency LORazepam 2 mg (ATIVAN) 2 mg ORAL q 4 H PRN Or LORazepam 2 mg injection (ATIVAN) 2 mg INTRAMUSCULAR q 4 H PRN haloperidol 5 mg tab(s) (HALDOL) 5 mg ORAL q 4 H PRN Or haloperidol lactate 5 mg short-acting injection (HALDOL) 5 mg INTRAMUSCULAR q 4 H PRN hydrOXYzine HCl 50 mg tab(s) (ATARAX) 50 mg ORAL q 4 H PRN aluminum-magnesium hydroxide-simethicone 200-200-20 mg/5 mL 30 mL 30 mL ORAL q 4 H PRN magnesium hydroxide 400 mg/5 mL 30 mL (MOM) 30 mL ORAL DAILY PRN benztropine 2 mg injection (COGENTIN) 2 mg INTRAMUSCULAR q 30 MIN PRN diphenhydrAMINE 50 mg injection (BENADRYL) 50 mg INTRAMUSCULAR q 30 MIN PRN nicotine polacrilex 2 mg gum (NICORETTE) 2 mg ORAL q 2 H PRN melatonin 3 mg tab(s) 3 mg ORAL DAILY (8 PM) therapeutic multivitamin-minerals tablet (THERA-M PLUS) 1 tablet ORAL DAILY WITH BREAKFAST thiamine 100 mg tab(s) (VITAMIN B1) 100 mg ORAL TID folic acid 1 mg tab(s) 1 mg ORAL DAILY WITH BREAKFAST ondansetron 4 mg tab(s) (ZOFRAN) 4 mg ORAL q 6 H PRN Or ondansetron (PF) 4 mg injection (ZOFRAN) 4 mg INTRAMUSCULAR q 6 H PRN Or ondansetron (PF) 4 mg injection (ZOFRAN) 4 mg INTRAVENOUS q 6 H PRN escitalopram oxalate 10 mg tab(s) (LEXAPRO) 10 mg ORAL DAILY acetylcysteine 1,200 mg cap(s) (NAC) 1,200 mg ORAL BID doxepin 10 mg cap(s) (SINEquan) 10 mg ORAL AT BEDTIME cyanocobalamin 500 mcg (VITAMIN B-12) 500 mcg ORAL DAILY cholecalciferol 1,000 Units tab(s) (VITAMIN D3) 1,000 Units ORAL DAILY gabapentin 300 mg cap(s) (NEURONTIN) 300 mg ORAL BID DATA: Diagnostic tests reviewed for today's visit: No new labs Assessment/Plan DIAGNOSIS: PRIMARY: MDD, recurrent, severe without psychotic features Alcohol use disorder, severe, dependence Cannabis use disorder, moderate OCD per Hx EMILY GAF: -60-51 Moderate symptoms or moderate difficulty in social, occupational or school functioning. RISK ASSESSMENT: Suicide: moderate Homicide: low Deliberate Self-Harm: moderate Aggression: low Imminent Physical Self Impairment: moderate INFORMED CONSENT: Yes, completed with the Patient. Discussed the risks, benefits and alternatives to the medication(s) recommended. Consent was given. INTERVENTION: Biological: - rx remains unchanged Psychological: encourage groups Social: milieu DISCHARGE PLANNING: Per primary team. Wrote 3-day letter 03/28 SIGNATURE: Gabi Higginbotham PA-C PATIENT NAME: Kandice Polanco DATE: March 30, 2023 TIME: 8:[address] [facility]07-28-2023 NoteHNO ID: [id number] Author: Lilia Regalado LISW Service: Care Management Author Type: Living Specialist Type: Plan of Care Filed: 03/29/2023 3:24 PM Note Text: Attestation signed by Florencio Clement MD at 04/01/2023 7:53 PM Care plan reviewed with team as noted below. Florencio Clement MD 7:53 PM, April 01, 2023 Psychiatry Staff BEHAVIORAL HEALTH INPATIENT INTERDISCIPLINARY TREATMENT PLAN UPDATE DATE INITIATED: 03/29/2023 3:18 PM Patient's Goal of Treatment: get my sleep medications right Active Hospital Problems Alcohol use disorder, severe, dependence (HCC) Cannabis use disorder, moderate, dependence (HCC) Mixed obsessional thoughts and acts *MDD (major depressive disorder), severe (HCC) Malnutrition of moderate degree (HCC) Severe recurrent major depression without psychotic features (HCC) Criteria for Discharge: Elimination/reduction of presenting behavior: Pt continues to report intermittent anxiety. He has been attending and participating in groups. Medication compliant. Estimated length of stay: Likely d/c Saturday Interdisciplinary Treatment Plan Date Initiated: 03/26/23 Time Initiated: 2055 Patient Participation in Initial Treatment Plan: Yes Initial Treatment Plan Date: 03/26/23 Other Participants: N/A Strengths/Assets: Insight into illness, Employed, Stable living situation, Able to read and/ or write Limitations: Lacks health literacy, Not adherent with treatment Precautions indicated: Routine Precautions Individualized problems: Mood disorder Problem - Discharge Needs Date Initiated: 03/26/23 Time Initiated: 2057 Discharge Needs: Encourage patient to utilize appropriate coping skills, Encourage patient to maintain sobriety or explore ambivalence re: sobriety Interventions - Nursing: Obtain baseline level of functioning on admission, Administer medications as indicated and monitor patient for effect daily, Provide education to the patient and/or family about the disease process and management as appropriate daily and as needed, Provide non-judgmental supportive, empathetic and comprehensive trauma informed care daily and as needed, Use therapeutic communication skills to develop patient trust and a nurse-patient relationship daily and as needed, Assess for signs of escalating emotions and help identify ways to appropriately express feelings as needed, Assist with developing positive coping behaviors daily and as needed, Assess for escalating behavior and utilize de-escalation skills as needed, Encourage independence with daily functioning daily and as needed, Assist with activities of daily living, utilizing any necessary assistive devices daily and as needed, Monitor nutritional intake daily, Provide a quiet, restful environment to promote sleep/rest daily and as needed, Encourage patient participation in milieu activities daily and as needed Interventions - Social Work: Assess for appropriate level of care and initiate referral upon admission or as needed, Assess Social Determinants of Health upon admission or as needed, Collateral information as needed, Develop aftercare plan, Assist with identifying community/social supports daily or as needed Interventions - Therapy: Develop and discuss leisure education plan, Educate on/promote the utilization of Community Resources daily and as needed, Help patient to identify people, places and things that support recovery and stabilization of mental health, Promote medication compliance as needed, Promote ongoing practice of effective coping strategies daily and as needed, Promote the importance of following up with medical/behavioral health providers daily and as needed Post discharge referrals: Crisis Hotline Number, Individual Counseling, Psychiatry, Residential Treatment Program Identify next level of care: Residential Program Problem - Mood Disorder As evidenced by: Anxiety, Helplessness, Hopelessness Date Initiated: 03/26/23 Time Initiated: 2057 Mood Disorder: Depression Short Term Goals: Patient participates in 2 daily activities by day 3 Target Date Short Term Goals: 03/29/23 Progress Towards Short Term Goals: Progressing Special Needs Caregiver Goals: Patient expresses examples of optimism and hope for the future Target Date Special Needs Caregiver Goals: 04/04/23 Progress Towards Special Needs Caregiver Goals: Progressing Interventions - Nursing: Obtain baseline level of functioning on admission, Administer medications as indicated and monitor patient for effect daily, Provide education to the patient and/or family about the disease process and management as appropriate daily and as needed, Provide non-judgmental supportive, empathetic and comprehensive trauma informed care daily and as needed, Use therapeutic communication skills to develop patie (more content not included)..[facility]07-28-2023 NoteHNO ID: [id number] Author: Lilia Regalado LISW Service: Care Management Author Type: Living Specialist Type: Care Mgt Progress Note Filed: 03/29/2023 2:24 PM Note Text: BEHAVIORAL HEALTH SOCIAL WORK PROGRESS NOTE SERVICE DATE: 03/29/2023 SERVICE TIME: 10:15am Met with pt this AM to follow up. Pt reports feeling like his anxiety is improved today. Admits that yesterday he felt backed into a corner. He has a tendency to catastrophize, especially when he is overwhelmed. Pt states he lashes out at people with [my] words and recognizes this is a pattern for him regardless of it he is drinking or not. Pt states he would like to get into therapy to help learn better coping skills to manage this. Pt was amenable to referral for counseling being made for him prior to d/c. He continues to decline referrals for substance abuse treatment, but would like to return to (and has spoken with a former friend from since being here). Additional voicemail message left for pt's psychiatrist (Dr. Sue)'s office to schedule follow up. Pt scheduled for initial appointment @ [facility] in [place], appointment placed in doc flowsheet. SW will continue to follow. SIGNATURE: ROJELIO Robertson PATIENT NAME: Kandice Polanco DATE: March 29, 2023 TIME: 2:[address] [facility]07-28-2023 NoteHNO ID: [id number] Author: Liz Morgan APRN.PINA Service: Psychiatry Author Type: Nurse Practitioner Type: Progress Notes Filed: 03/29/2023 2:56 PM Note Text: PROGRESS NOTE BEHAVIORAL HEALTH SERVICE DATE: 03/29/2023 SERVICE TIME: 12:47 PM The Interdisciplinary team met and reviewed treatment goals and discharge planning. Subjective Pt seen in room 1:1. Pt felt it pertinent to discuss his conversation with the this morning: He reports he reconnected with someone from . He felt he was being hazed in and this triggered trauma from childhood in which he was bullied. He does want to go back to but will connect with different people. He also states he spoke with the about being linked with a therapist to work through these childhood issues. He reports yesterday was very stressful and therefore he did not sleep well. He reports his emotions are up and down. His anxiety fluctuates throughout the day. He is trying to cope with this with square breathing or eating a snack. He tries to hold off on utilizing the PRN atarax but it does help. He utilized the atarax twice yesterday evening and once this morning- it does help. He is interested in increasing gabapentin in an effort to further treat anxiety and so he does not need to utilize PRN atarax as much. He reports he most recently tried higher doses of gabapentin and felt it made him fatigued but believes now this was due to a combination of multiple medications contributing to this. He reports he still wants discharge but is open to trusting the process. He denies Si however there is realistic concern pt is minimizing his mental health symptoms due to focus on discharge. He denies any cravings for ETOH. CIWA: 1, 2. He wrote a 3 day letter. He reports he spoke with Dr. Clement about this. Objective PHYSICAL EXAM: BP 133/89 Pulse (!) 59 Temp 36.2 ?C (97.2 ?F) (Oral) Resp 16 Ht 175.3 cm (5' 9 ) Wt 95.9 kg (211 lb 6.4 oz) SpO2 98% BMI 31.22 kg/m? MENTAL STATUS EXAMINATION: Appearance: In hospital gown Behavior: Appropriate Orientation: Person, Place, Time and Situation Speech/Language: The patient demonstrates appropriate tone, prosody, michael, phonetics, and syntax Mood/Affect: Anxious Thought Form: Logical Thought Content: Coherent Suicidal Ideations: No suicidal ideation, intent or plan. Homicidal Ideations: No homicidal ideation, intent or plan. Insight: Limited Judgment: Limited Memory/Cognition: Intact Psychomotor: Psychomotor activity was normal NEW PROBLEMS ON UNIT SINCE LAST ENCOUNTER: None Current Facility-Administered Medications Medication Dose Route Frequency LORazepam 2 mg (ATIVAN) 2 mg ORAL q 4 H PRN Or LORazepam 2 mg injection (ATIVAN) 2 mg INTRAMUSCULAR q 4 H PRN haloperidol 5 mg tab(s) (HALDOL) 5 mg ORAL q 4 H PRN Or haloperidol lactate 5 mg short-acting injection (HALDOL) 5 mg INTRAMUSCULAR q 4 H PRN hydrOXYzine HCl 50 mg tab(s) (ATARAX) 50 mg ORAL q 4 H PRN aluminum-magnesium hydroxide-simethicone 200-200-20 mg/5 mL 30 mL 30 mL ORAL q 4 H PRN magnesium hydroxide 400 mg/5 mL 30 mL (MOM) 30 mL ORAL DAILY PRN benztropine 2 mg injection (COGENTIN) 2 mg INTRAMUSCULAR q 30 MIN PRN diphenhydrAMINE 50 mg injection (BENADRYL) 50 mg INTRAMUSCULAR q 30 MIN PRN nicotine polacrilex 2 mg gum (NICORETTE) 2 mg ORAL q 2 H PRN melatonin 3 mg tab(s) 3 mg ORAL DAILY (8 PM) therapeutic multivitamin-minerals tablet (THERA-M PLUS) 1 tablet ORAL DAILY WITH BREAKFAST thiamine 100 mg tab(s) (VITAMIN B1) 100 mg ORAL TID folic acid 1 mg tab(s) 1 mg ORAL DAILY WITH BREAKFAST ondansetron 4 mg tab(s) (ZOFRAN) 4 mg ORAL q 6 H PRN Or ondansetron (PF) 4 mg injection (ZOFRAN) 4 mg INTRAMUSCULAR q 6 H PRN Or ondansetron (PF) 4 mg injection (ZOFRAN) 4 mg INTRAVENOUS q 6 H PRN escitalopram oxalate 10 mg tab(s) (LEXAPRO) 10 mg ORAL DAILY acetylcysteine 1,200 mg cap(s) (NAC) 1,200 mg ORAL BID gabapentin 200 mg cap(s) (NEURONTIN) 200 mg ORAL BID doxepin 10 mg cap(s) (SINEquan) 10 mg ORAL AT BEDTIME cyanocobalamin 500 mcg (VITAMIN B-12) 500 mcg ORAL DAILY cholecalciferol 1,000 Units tab(s) (VITAMIN D3) 1,000 Units ORAL DAILY DATA: Diagnostic tests reviewed for today's visit: Most recent labs and imaging results. Assessment/Plan DIAGNOSIS: PRIMARY: MDD, recurrent, severe without psychotic features Alcohol use disorder, severe, dependence Cannabis use disorder, moderate OCD per Hx EMILY RISK ASSESSMENT: Suicide: moderate Homicide: low Deliberate Self-Harm: moderate Aggression: low Imminent Physical Self Impairment: moderate INFORMED CONSENT: Yes, completed with the Patient. Discussed the risks, benefits and alternatives to the medication(s) recommended. Consent was given. INTERVENTION: Biological: RBABBW increasing gabapentin to 300mg BID discussed, pt consented. Continue medications as ordered. Psychological: group therapy Social: milieu D (more content not included)...[id number] NoteHNO ID: [id number] Author: lForencio Clement MD Service: Psychiatry Author Type: Physician Type: Progress Notes Filed: 03/28/2023 4:07 PM Note Text: PROGRESS NOTE BEHAVIORAL HEALTH SERVICE DATE: 03/28/2023 SERVICE TIME: 2:19 PM The Interdisciplinary team met and reviewed treatment goals and discharge planning. Subjective Patient very discharge focused. Says that he is fine now . Rightly identifies that EtOH relapse led to significant dysphoria and suicidal ideation with plan. Relapsed immediately after prior discharge. Unable to see imminent risk, particularly if he were to drink again. Believes that now he is focused on sobriety he is sure to succeed. Clearly underestimating sobriety and displays continued dysphoria. Clearly minimizing depressive symptoms. And is discharge focused. Revoked FAM for mother as a way of acting out in order to prevent the team from acquiring information that might concern us. Does reports sleeping a bit better with Doxepin overnight. Has not tried Doxepin before and interested to see how another night will go. Denies any side effects to medication. ADDENDUM: Patient's friend Gavin, who reportedly drove Patient to [facility] (who Patient called while intoxicated and suicidal) called unit to provide collateral. Kandice did NOT permit release of information for Gavin (like mother) though nursing staff did collect collateral information. Gavin reports that he has spoken with the Patient and remains highly concerned. Worries that Patient will immediately drink after discharge and harm himself. Gavin highly concerned about Patient's ongoing alcohol use. Objective PHYSICAL EXAM: BP 139/97 Pulse (!) 57 Temp 36.3 ?C (97.3 ?F) (Oral) Resp 18 Ht 175.3 cm (5' 9 ) Wt 95.9 kg (211 lb 6.4 oz) SpO2 97% BMI 31.22 kg/m? MENTAL STATUS EXAMINATION: Appearance: In hospital gown Behavior: Discharge focused, superficially cooperative Orientation: Person, Place, Time and Situation Speech/Language: The patient demonstrates appropriate tone, prosody, michael, phonetics, and syntax Mood/Affect: fine now /mood incongruent, restricted with minimal reactivity, dysphoric Thought Form: Linear and organized Thought Content: Coherent, related to clinical discussion. Suicidal Ideations: Denies any suicidal ideation, plan, or intent Homicidal Ideations: No homicidal ideation, intent or plan. Insight: Poor Judgment: Poor Memory/Cognition: Intact Psychomotor: Psychomotor activity was normal NEW PROBLEMS ON UNIT SINCE LAST ENCOUNTER: None Current Facility-Administered Medications Medication Dose Route Frequency LORazepam 2 mg (ATIVAN) 2 mg ORAL q 4 H PRN Or LORazepam 2 mg injection (ATIVAN) 2 mg INTRAMUSCULAR q 4 H PRN haloperidol 5 mg tab(s) (HALDOL) 5 mg ORAL q 4 H PRN Or haloperidol lactate 5 mg short-acting injection (HALDOL) 5 mg INTRAMUSCULAR q 4 H PRN hydrOXYzine HCl 50 mg tab(s) (ATARAX) 50 mg ORAL q 4 H PRN aluminum-magnesium hydroxide-simethicone 200-200-20 mg/5 mL 30 mL 30 mL ORAL q 4 H PRN magnesium hydroxide 400 mg/5 mL 30 mL (MOM) 30 mL ORAL DAILY PRN benztropine 2 mg injection (COGENTIN) 2 mg INTRAMUSCULAR q 30 MIN PRN diphenhydrAMINE 50 mg injection (BENADRYL) 50 mg INTRAMUSCULAR q 30 MIN PRN nicotine polacrilex 2 mg gum (NICORETTE) 2 mg ORAL q 2 H PRN melatonin 3 mg tab(s) 3 mg ORAL DAILY (8 PM) therapeutic multivitamin-minerals tablet (THERA-M PLUS) 1 tablet ORAL DAILY WITH BREAKFAST thiamine 100 mg tab(s) (VITAMIN B1) 100 mg ORAL TID folic acid 1 mg tab(s) 1 mg ORAL DAILY WITH BREAKFAST ondansetron 4 mg tab(s) (ZOFRAN) 4 mg ORAL q 6 H PRN Or ondansetron (PF) 4 mg injection (ZOFRAN) 4 mg INTRAMUSCULAR q 6 H PRN Or ondansetron (PF) 4 mg injection (ZOFRAN) 4 mg INTRAVENOUS q 6 H PRN escitalopram oxalate 10 mg tab(s) (LEXAPRO) 10 mg ORAL DAILY acetylcysteine 1,200 mg cap(s) (NAC) 1,200 mg ORAL BID gabapentin 200 mg cap(s) (NEURONTIN) 200 mg ORAL BID doxepin 10 mg cap(s) (SINEquan) 10 mg ORAL AT BEDTIME cyanocobalamin 500 mcg (VITAMIN B-12) 500 mcg ORAL DAILY cholecalciferol 1,000 Units tab(s) (VITAMIN D3) 1,000 Units ORAL DAILY DATA: Diagnostic tests reviewed for today's visit: Most recent labs Assessment/Plan DIAGNOSIS: PRIMARY: MDD, recurrent, severe without psychotic features Alcohol use disorder, severe, dependence Cannabis use disorder, moderate OCD per Hx EMILY GAF: 35 -40-31 Some impairment in reality testing or communication or major impairment in several areas. RISK ASSESSMENT: Suicide: high Homicide: low Deliberate Self-Harm: low Aggression: low Imminent Physical Self Impairment: moderate INFORMED CONSENT: Yes, completed with the Patient. Discussed the risks, benefits and alternatives to the medication(s) recommended. Consent was given. INTERVENTION: Biological: - continue Lexapro 10 mg daily - continue gabapentin 200 mg BID - continue Doxepin 10 mg QHS - declines (more content not included)...[facility] [id number] NoteHNO ID: [id number] Author: Lilia Regalado LISW Service: Care Management Author Type: Living Specialist Type: Care Mgt Progress Note Filed: 03/28/2023 1:57 PM Note Text: BEHAVIORAL HEALTH SOCIAL WORK PROGRESS NOTE SERVICE DATE: 03/28/2023 SERVICE TIME: 11:00am Met with pt this afternoon to follow up. Pt reports feeling frustrated about being in the hospital, is eager for discharge home. Pt states he is concerned that a friend of his, Gavin, is planning to call and tell staff to keep him in the hospital longer. Pt reports Gavin is the person who initially brought him to the hospital. He acknowledges why Gavin would be concerned about him, as he is the person pt called to report he was suicidal in the first place. Pt states he no longer feels this way, however, and would like to go home [facility]. Reports he is unwilling to sign FAM for friend Gavin at this time. He would also like to rescind his FAM for his mother, as he worries that Gavin is going to influence her level of concern about him. Pt continues to deny feeling suicidal. States he was only suicidal due to being intoxicated. Reports he would not drink again, but does acknowledge he relapsed immediately after discharge. Discussed pt's right to sign 3-Day letter if he is no longer a voluntary patient. Pt wrote 3-day Letter today at 1:04pm which was placed in his chart. Attending notified. SW will continue follow. SIGNATURE: ROJELIO Robertson PATIENT NAME: Kandice Polanco DATE: March 28, 2023 TIME: 1:[address] [facility]07-26-2023 NoteHNO ID: [id number] Author: Lilia Regalado LISW Service: Care Management Author Type: Living Specialist Type: Care Mgt Initial Assessment Filed: 03/27/2023 11:54 AM Note Text: BEHAVIORAL HEALTH SOCIAL WORK/CARE MANAGEMENT ASSESSMENT AND DISCHARGE PLAN SERVICE DATE: 03/27/2023 SERVICE TIME: 10:30am Reason for Admission: Per intake: Nature of the crisis: Pt in the ED for suicidal ideations. Presenting Problem: Kandice Polanco is a 42 year old male brought in to [facility] from Home by friend for suicidal ideations. Intake spoke with pt over phone for assessment. He is A AND O x 4. Thoughts are logical and linear. He is cooperative throughout assessment. Pt sounds anxious and depressed. He states I don't feel well. Pt states he is in the hospital due to overused a sleep medication and then started drinking. Pt states he told a friend this morning he was feeling suicidal with a plan to hang himself. Pt states I'm tired of fighting it. Pt states he was recently admitted to [facility] psych unit from Saturday to Saturday. He was discharged and started drinking. He drinks 8 25oz beers daily and smokes marijuana. He reports withdrawal symptoms of shakes and sweats. Pt states he has been to detox/rehab before but not in years. He denies hx of seizures and DTs. He has not taken his medications since being discharged yesterday. Pt states for the past few months his depression and anxiety have increased. He has poor sleep (trouble staying asleep) and poor appetite. He denies homcidal ideations and A/V hallucinations. He reports previous suicide attempt in 2018 when he drank and overdosed on Seroquel. Pt states he is not med compliant normally and has been overusing his Zyprexa and out of this medication for the past 2 weeks. Pt follows with Dr. Sue in [place], [place]. He had an appointment with outpatient provider today who suggested pt go to the ED. Pt reports stressors of his dad being sick and 3 of his pets have . Pt states he still has 4 cats at home who bring him comfort. He denies having access to guns or weapons at home. 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 He would like to be admitted today Tox screen + amphetamines (prescribed Adderall), cannabinoids, and alcohol. BAL 206 in the ED. No restraints or PRNs needed in the ED. Legal Status: Voluntary Important Contacts: Primary Contact Name: Diamond Polanco / Relationship: Mother / / Does the patient/advertising account representative consent to contact with the above at this time? Yes Information obtained from: Chart Patient Referred by: Self Living Arrangements Prior to Admission: Apartment Prior to Admission, Patient was Living with: N/A - Patient Lives Alone Marital Status: Single, Never Children (including quality of relationship): Patient does not have any children Sexual Orientation: Unknown SOCIAL HISTORY Kandice Polanco was born and raised in [place], [place] by his biological parents. His childhood is described as unknown. He has an unknown number of siblings. He has close and supportive relationship with family members. Trauma and Abuse History (emotional, mental, physical, sexual, verbal, neglect,exploitation, other): Yes, pt endorses being bullied as a child. 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 Sue in [place], [place] - Therapist: None - Offensive Coordinator: None - Suicide Attempt(s): Yes, x1 via OD on Seroquel+ETOH - Prior Diagnoses: Yes, MDD, MAYUR - Previous Mental Health Interventions: Medication, Therapy, and Hospitalization(s) Violence Risk to Self: In the past 6 months have you had thoughts of killing yourself or suicidal ideations? Yes, pt reported SI began day after his admission at [facility] In the past 6 months, have you made plans/preparations and/or had an intent to act upon these suicidal ideas/thoughts? Yes, pt reported plan to OD or hang himself Has Patient Been Hospitalized Previously for Psychiatric Reasons? Yes, and an Admission Was Within the Past 30 Days: Followed Up with Appointment Prior to Admission: Appointment completed What interventions might be used this admission to avoid future readmissions? Increased Outpatient Support Substance Use and Treatment History: Alcohol - pt reports drinking 6-8 8% Tall boys prior to his admission to [facility]. Drank 6 tall boys the day he was discharged. Marijuana - daily use - Lab Results Positive for ETOH, THC, Amphetamines (prescribed Adderall) Do special consid (more content not included)...[facility] [id number] Note HNO ID: [id number] Author: Robyn Hansen [facility] Service: Pharmacy Author Type: Pharmacist Type: Plan of Care Filed: 03/27/2023 9:04 AM Note Text: PHARMACY MEDICATION REVIEW Patient Name: Kandice Polanco : 1980 The following medications were updated within the [facility] medication list: Medications ADDED to [facility] medication list None Medications CHANGED on [facility] medication list Clonidine 0.2 mg at bedtime ([facility] dosing - was changed to 0.1 mg q8h PRN at [facility]) Gabapentin 200 mg BID ([facility] dosing - was changed to 400 mg TID at [facility]) Adderall 10 mg TID Trazodone 50 mg qHS Medications REMOVED from [facility] medication list Duloxetine Atarax Duplicate Vistaril Additional comments: Recent discharge from [facility] with the following medication list: New trazodone 50 mg Tablet 50 mg PO QHS PRN (Reason: Insomnia) 15 Days Qty: 15 1RF gabapentin 100 mg Capsule 200 mg PO BID 15 Days Qty: 60 1RF escitalopram oxalate 10 mg Tablet 10 mg PO QAM 15 Days Qty: 15 1RF hydroxyzine pamoate 50 mg Capsule 50 mg PO Q6H PRN (Reason: Anxiety) 15 Days Qty: 30 0RF Continued dextroamphetamine-amphetamine [Adderall] 15 mg tablet 15 mg PO BID hydroxyzine HCl 25 mg tablet TAKE 1 TABLET BY MOUTH EVERY DAY NEEDED olmesartan [Benicar] 40 mg tablet 40 mg PO DAILY 30 Days Qty: 30 0RF clonidine HCl 0.1 mg tablet 0.2 mg PO HS 15 Days Qty: 0 1RF folic acid 1 mg tablet 1 mg PO DAILY 30 Days Qty: 0 0RF Discontinued duloxetine [Cymbalta] 60 mg capsule,delayed release(DR/EC) 60 mg PO DAILY olanzapine 5 mg tablet 5 mg PO QHS Transfer from [facility], the following medication changes were made: Gabapentin increased to 400 mg TID Zyprexa and Adderall held Start clonidine 0.1 mg q8h PRN anxiety The below information represents the best possible medication history: Yes Medication history completed by: Pharmacist: Robyn Hansen RPh Source of history: [facility] records and Care Everywhere records Medication nonadherence identified: Unable to assess Reconciliation completed: Yes Completed by: Robyn Hansen Rph All [facility] medications addressed by LIP - Olmesartan not resumed. Zyprexa resumed when it was dc'ed at [facility]. Clonidine changed to qHS - will d/w team. Patient interested in Bedside Delivery Services or using OP Pharmacy at discharge? Unable to assess Preferred outpatient pharmacy: [id number] [place] [address] - [address] [facility] [phone] [place] [address] Allergies: Bactrim [Sulfametho* Other: See Comments Codeine Other: See Comments Erythromycin Other: See Comments Penicillins Other: See Comments Prior to Admission Medications Prescriptions Last Dose Informant Patient Reported? Taking? cloNIDine HCl (CATAPRES) 0.2 mg tablet 03/26/2023 at morning Yes Yes Sig: Take 0.2 mg by mouth daily at bedtime. dextroamphetamine-amphetamine (ADDERALL) 10 mg tablet 03/26/2023 Yes Yes Sig: Take 10 mg by mouth three times daily. escitalopram oxalate (LEXAPRO) 10 mg tablet 03/25/2023 Yes Yes Sig: Take 10 mg by mouth once daily. folic acid 1 mg tablet 03/25/2023 Yes Yes Sig: folic acid 1 mg tablet TAKE 1 TABLET BY MOUTH DAILY gabapentin (NEURONTIN) 100 mg capsule 03/26/2023 Yes Yes Sig: Take 200 mg by mouth twice daily. hydrOXYzine pamoate (VISTARIL) 50 mg capsule 03/25/2023 Yes Yes Sig: Take 50 mg by mouth three times daily as needed for anxiety. olmesartan (BENICAR) 40 mg tablet 03/25/2023 Yes Yes Sig: Take 40 mg by mouth once daily. traZODone (DESYREL) 50 mg tablet Yes No Sig: Take 50 mg by mouth daily at bedtime. Facility-Administered Medications: None Robyn Hansen RPh 03/27/2023[facility] [id number] NoteHNO ID: [id number] Author: Nubia Cannon LSW Service: Care Management Author Type: Living Specialist Type: Care Mgt Initial Assessment Filed: 03/26/2023 3:33 PM Note Text: CARE MANAGEMENT: ASSESSMENT AND DISCHARGE PLAN SERVICE DATE: March 26, 2023 SERVICE TIME: 3:25 PM PCP: Shakeel Kaye DO Primary Contact: Extended Emergency Contact Information Primary Emergency Contact: Diamond Polanco Mobile Relation: Mother Secondary Emergency Contact: Gavin Morton Mobile Relation: Friend Admission Status: Observation Insurance Provider: ANDREW [employer] MEDICAID Discharge Planning requested by: Per Department Practice Potential Transition Plans Other: See Comment (Inpatient psychiatric admission) Advance Directives Current Advance Directive: None Supervisor Kennel Attempted to Assist with AD Completion: Yes Action: Education Provided;Patient Unwilling Current Living Arrangements and Support Lives with: Alone Type of Residence: Support: Friends/neighbors, Family members, Therapist How do you manage to accomplish the following: Independent: Ambulation;Bathe/Shower;Dress;Meals/Meal Prep;Going to the bathroom;Medication Management Current Services/Equipment Discharge Planning Patient Goal(s): Other: See Comment Patient's Other Post-Acute Care Goal(s): To go to psychiatry to have my medications adjusted. [place] [facility] Explained: Are you interested in bedside delivery of your medications? Discharge Planning Participant(s): Patient Patient/Family Comments: Caregiver Assessment: Transport at Discharge: Transportation Arrangements: Ambulance Transportation Agency and Phone #:: [facility] [phone] Needs Prior to Discharge: Needs Prior to Discharge: To Be Determined;Discharge Transportation Post-Acute Discharge Plan: PATEL spoke with Patient today. He reports leaving [facility] Psych[facility] admission, drank 6 tall boys he had in his car and did not take his psych medications. He is reporting to this worker that he does not feel safe to return home at this time and [facility]. Waiting determination if accepted and bed availability. CM to continue to follow. PATEL addressed ETOH abuse as well. He stated he has had alcohol treatment before in the past, has a good support system with mother and friend and has not been currently receiving only professional or AA services prior to admission. He declined resources from this worker. States he has all necessary information/resources at home. SIGNATURE: CLEMENTE Grider PATIENT NAME: Kandice Polanco DATE: March 26, 2023 TIME: 3:25 PM CONTACT #: [phone] [id number] NoteHNO ID: [id number] Author: Erika White LSW Service: Care Management Author Type: Living Specialist Type: Care Mgt Progress Note Filed: 03/26/2023 3:13 PM Note Text: CARE MANAGEMENT PROGRESS NOTE SERVICE DATE: 03/26/2023 SERVICE TIME: 3:13 PM LOS: 0 days Left message on voicemail. SW/CM will continue to follow SIGNATURE: CLEMENTE Vásquez PATIENT NAME: Kandice Polanco DATE: March 26, 2023 TIME: 3:07 PM PAGER/CONTACT #: [phone] [id number] NoteHNO ID: [id number] Author: Dewey Toussaint MD Service: Hospital Medicine Author Type: Physician Type: Progress Notes Filed: 03/26/2023 11:18 AM Note Text: DEPARTMENT OF HOSPITAL MEDICINE PROGRESS NOTE SERVICE DATE: 03/26/2023 SERVICE TIME: 11:14 AM Hospital Medicine/Primary Attending: Dewey Toussaint MD NIGHT AND WEEKEND COVERAGE: JAYE COVERAGE: Days: [phone], please contact via [facility] [employer] Nights: [phone] - floor: please page Hospitalist night cover [phone] - 4th floor: please page Hospitalist night cover [phone] - 5th floor: please page Hospitalist night cover [phone] Subjective INTERVAL HPI: Patient seen and examined at bedside. he reports he slept well overnight. Patient is in agreement to going to inpatient psych facility for support. Current Facility-Administered Medications Medication Dose Route Frequency folic acid 1 mg tab(s) 1 mg ORAL DAILY pantoprazole 40 mg injection (PROTONIX) 40 mg INTRAVENOUS AT BEDTIME thiamine 100 mg tab(s) (VITAMIN B1) 100 mg ORAL/FEEDING TUBE TID prochlorperazine 5 mg injection (COMPAZINE) 5 mg INTRAVENOUS q 6 H PRN gabapentin 400 mg cap(s) (NEURONTIN) 400 mg ORAL q 8 H hydrOXYzine HCl 50 mg tab(s) (ATARAX) 50 mg ORAL q 6 H PRN cloNIDine HCl 0.1 mg tab(s) (CATAPRES) 0.1 mg ORAL q 8 H [START ON 03/27/2023] escitalopram oxalate 10 mg tab(s) (LEXAPRO) 10 mg ORAL DAILY Objective PHYSICAL EXAM: BP 130/90 Pulse 68 Temp (Src) 98.1 (Oral) Resp 16 Ht 5' 9 (1.75m) Wt 210 lb 15.7 oz (95.7kg) SpO2 97% BMI 31.14 kg/(m2). O2 Therapy: Room Air Physical Exam Performed GENERAL: Alert, no distress, cooperative LUNGS: Lungs clear to auscultation, Good diaphragmatic excursion CARDIAC: Normal S1 and S2; no rubs, murmurs, or gallops ABDOMEN: Abdomen soft, non-tender, BS normal, No masses or organomegaly EXTREMITIES: Normal exam of the extremities NEURO: Grossly normal cognition, motor function, and cranial nerves III-XII Lines, Drains, and Airways Line Duration Peripheral 03/25/23 1220 [facility] Short Right Forearm 20 Gauge <1 day Peripheral 03/25/23 1255 [facility] Short Left Antecubital 22 Gauge <1 day Patient does not currently have any lines, drains or airways. DATA: Diagnostic tests reviewed for today's visit: Most recent labs Most recent imaging Most recent EKG CBC, Coags, BMP, Mg, Phos Recent Labs 03/26/23 0413 03/25/23 1254 WBC 6.45 6.88 HB 14.7 15.0 HCT 43.0 44.0 PLT 283 313 NA 139 142 K 3.9 3.7 CHLOR 104 105 CO2 23 21* BUN 11 11 CREAT 0.98 1.10 GLUC 89 138* CA 8.8 9.3 MG 2.0 -- Liver Function, Amylase, AND Lipase Recent Labs 03/26/23 0413 03/25/23 1254 03/25/23 1248 TPROT 6.4 7.3 -- ALB 3.7* 4.3 -- ALT 56* 64* -- AST 54* 70* -- ALKPHOS 87 103 -- TBILI 0.6 0.3 -- LACT -- -- 1.96 Cardiac Enzymes Assessment/Plan Problem List Alcohol intoxication with moderate or severe use disorder, with unspecified complication (HCC) (POA: Yes) HOSPITAL COURSE: Kandice Polanco is a 42 year old male presented with past medical history of alcohol addiction, MJ addiction. Principal Problem: Alcohol intoxication with moderate or severe use disorder, with unspecified complication (HCC) Assessment AND Plan: Continue IV fluids, multivitamin replacement. CIWA protocol. Patient is medically cleared for discharge to inpatient admission for depression and alcohol addiction. Continue sitter, Lexapro, gabapentin, trazodone Addition of Atarax 50 mg every 6 hours for anxiety Clonidine 0.1 mg every 8 hours for anxiety Appreciate psych input-spoke with psych this morning okay for discharge from medicine standpoint once bed is available Medication and Non-Pharmacologic VTE Prophylaxis/Anticoagulants 03/25/23 1745 activity - mobilize patient (tx,oh) VTE Prophylaxis: VTE prophylaxis appropriate Disposition: inpatient psych admission Plan of care discussed with Provider, RN, Patient Plan communicated to: N/A SIGNATURE: Dewey Toussaint MD PATIENT NAME: Kandice Polanco DATE: March 26, 2023 TIME: 11:14 [id number] Evaluation note* Encounter Date Diagnosis Assessment Notes Treatment Notes Treatment Clinical Notes Oct, Fatty liver (ICD-10 - K76.0) Repeat fibroscan in 2-3 years. In recall system. Continue to limit/avoid alcohol intake. Follow up in 1 year with labs prior appointment. Oct, Liver fibrosis (ICD-10 - K74.00) Oct, Other Obtain colonosc opy from [place]. Records release signed by patient. [employer] Other 10-05-2022 Evaluation note* Encounter Date Diagnosis Assessment Notes Treatment Notes Treatment Clinical Notes Jun, Other closed displaced fracture of base of first metacarpal bone of left hand, initial encounter (ICD-10 - S62.232A) [facility] Other 08-08-2022 Evaluation note* Encounter Date Diagnosis Assessment Notes Treatment Notes Treatment Clinical Notes Apr, Other closed displaced fracture of base of first metacarpal bone of left hand, initial encounter (ICD-10 - S62.232A) Fracture reduced in office, fiberglass thumb spica splint applied. Patient may work with no use of left hand. Rx [place]. May use hand for ADLs 2-5 lbs. Patient instructed to leave splint in place and do not remove [employer] Other 08-04-2022 NotePROCEDURE: XR WRIST LT MIN 3 V HISTORY: Pain , bruising, and swelling of lateral left hand and wrist since falling one day ago COMPARISON: None. FINDINGS: BONES:Acute, transverse fracture through base of first metacarpal with lateral displacement one third of the bone width; no convincing intra-articular extension.. Intact carpal bones and intercarpal joint spaces. SOFT TISSUES:Soft tissue swelling of the thumb. No radiopaque foreign body. EFFUSION:None visible. OTHER: Negative. IMPRESSION: 1. Acute, displaced fracture involving base of first metacarpal. Electronically authenticated by: LISA SILVA Date: 2022-04-05 13:26[facility] summary Author Dwain mercado [facility] March 24, 2023 6:27am Note Date/Time March 24, 2023 6:23 am [facility] [address] [place] [address] Discharge Summary Signed Patient: Kandice Polanco MR#: [id number] : 1980 Acct:[id number] Age/Sex: 42 / M Adm Date: 3 Loc: Room: [address] [place] [address]: William Vann MD Copies to: MD Shakeel Carver,DO~ Providers Date of Discharge: 03/24/23 Discharging Provider: William Vann Primary Care Provider: Shakeel Kaye Discharge Diagnosis (1) Major depressive disorder, recurrent, moderate: (2) Alcohol dependence, uncomplicated: Final Diagnosis Final Discharge Diagnosis: MDD Summary Hospital Course Hospital course: Mr. Polanco is a 42 year old male with a reported history of? who presents for inpatient admission due to worsening of depression and feeling suicidal. Reportedly, he presented to the [facility] emergency roomwith suicidal ideation.? The patient states that he ran out of olanzapine prematurely, due to the fact that he started taking a bigger dose than what was prescribed.? The patient states he felt like the olanzapine was working, but it was not a large enough dose.? After running out of the olanzapine, the patient added that he started drinking heavy amounts of ethanol.? Due to this, the patient relates these actions with the suicidal ideation coming about.? His planwas to overdose on medications. Patient was personally seen by me on the day of the encounter.? I reviewed the history and performed the jones elements of the assessment.? I formulated the planof care and confirmed this with the Resident? as noted below At the time of the interview, he presented as depressed and anxious. He reports a long standing history of depression and anxiety.? This morning, the patient presents as fatigued and tired.? The patient confirms feelings of depression andanxiety.? Relating to the depression, the patient states this started about a week ago, not drinking alcohol and being on the right path make it better, and using alcohol makes it worse.? The patient describes his depression as restless,rates it a 6 out of 10 this morning, and is pretty constant throughout the day.?Relating to the anxiety, the patient states that the anxiety has been going on for the last few months, not drinking alcohol and taking his meds seems to help his anxiety, and stressors in his life seems to make it worse.? The patient doesnot know how to describe his anxiety, rates it an 8 out of 10 this morning, and the level varies throughout the day.? Patient denies suicidal ideation, homicidal ideation, and hallucinations. Past psych history: Reports depression, anxiety, bipolar Past hospitalizations: Denies Past suicide attempts: Confirms.? Last attempt was a few years ago.? He took a whole bottle of Seroquel and drink copious amounts of alcohol. Family psych history: Grandmother on father's side had bipolar disorder and seasonal affective disorder.? Father was diagnosed with major depressive disorder. Previous medications: Olanzapine, Adderall, duloxetine Alcohol and drug use: Vapes throughout the day.? Drinks alcohol every day, various amounts.? Confirms marijuana use has a vape and smoke. 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 Course of Treatment: The patient was familiar with the mental health therapy services available to him while on the unit and was encouraged to participate. He reports non compliant with his psychiatric meds prior to admission. Patient reported that he was taking Zyprexa more than prescribed to slef medicate his racing thoughts.He also admitted to excessive drinking. We discussed medication risks, benefits and indications in details. He was open to trying psychopharmacological treatment. He was started on Lexapro to help with depression. Gabapentin was added to help with anxiety and reduce alcohol cravings. He felt that his symptoms have improved on the current medication regimen. He has been compliant with treatment and reported no side effects. His sleep was occasionally interrupted and we discussed utilizing Vistaril for anxiety and insomnia. The patient was attending groups and described them as helpful in building coping skills. He denied any access to firearms or lethal weapons. His symptoms improved and his affect became brighter. He was social with peers on the unit and indicated that he learned a lot to improve his mental health. He felt better than before coming to the hospital and hopeful about his future. He described both his depression and anxiety as mild rating of both at 1 out of 10, with ten being the worst. He said his mentalhealth symptoms are not interfering with his ability to function. Staff noted improvement of his symptoms as documented in nursing. He has been denying SI/HI or AVH to multiple members of the treatment team. He did not exhibit any disorganized behavior nor appeared to be experiencing auditory hallucinations orexpressing delusions. He did not show any behavior concerning for krista. His family had visited him and they noticed some improvement. He was much more insightful compared to the time of admission. He understands the importance of outpatient therapy to ensure the stability of symptoms. He denied suicidal or homicidal ideation and verbalized the intent to notify the staff if he has such thoughts. No suicidal or self-injurious behaviors occurred during inpatient treatment. He said his family will pick him up at the time of discharge. Mr. Polanco achieved maximum benefit from attending inpatient treatment and was suitable for outpatient follow up. He understands how to utilize resources suchas calling the hotline if he has any SI/HI. He learned how to stay positive and manage his stress in a healthier way. I explained to the patient that discharge from the hospital does not mean that medical care ends here. He needs consistent outpatient psychiatric follow-up, cognitive behavioral therapy, and PCP visits to ensure stability of symptoms. His three wishes include maintain better health, keep a positive outlook in life, and working on myself Patient's illness, medication side effects, benefits and risks were reviewed with the patient prior to discharge. The patient voiced understanding of their diagnosis, the medications recommended along with the importance of medication compliance. The patient was counseled not to stop medications without the supervision of a psychiatrist. The patient was counselor dormitory to follow-up with their outpatient medical provider as indicated. The patient was counseled that if there was an increase in mental health issues, depression, anxiety, medication side effects, self harm or thoughts of harm to others, the patient was not to harm them self or stop treatment, but to call [facility], 911 or come to the nearest emergency room. The patient also received information regarding advancedmental and medical health directives during this hospitalization to discuss their outpatient provider. The plan was discussed with the patient, the nurses and the social work department. The patient voiced agreement with the plan. Discharge disposition: HOme with family, coordinated by case management Safe discharge Planning: With the cessation of all suicidal ideation, improvements in mood, and with a cessation of any psychotic process, aftercare plans were solidified. The patient was able to formulate a believable safety plan. Discharge plans were discussed with the patient and the treatment team. All agreed with the discharge plan. On the day of discharge, he was evaluated and had no complaints. He denied any SI/HI. He felt hopeful, motivated and agreed to follow up with outpatient treatment as arranged by case management. Suicide risk assessment: A thorough review of protective and risk factors was conducted during this admission. Discussed with the patient the following recommendations that would help reduce suicide which include limiting the numberof pills to a 14-day supply with one refill at the time of discharge to avoid potential overdose, involving family members in his care, consistent outpatient follow up preferably within seven days of release, and his desire to live. He reported a good therapeutic alliance, good response to medication management andtherapy, availability of local mental health services and willingness to follow up, lack of suicidal ideation, behvaior, intent or plan, lack of impulsivity, agitation, or psychosis. Pt is future-oriented and understands the importance ofoutpatient follow-up. The presence of positive factors like family and zev, lack of access to firearms, and desire to continue his treatment is consistent with a safe discharge plan. Psychiatric experts agree that it is impossible to predict suicide. Given the chronic risk of suicide, we discussed a plan to help him long-term safety. The patient is not suicidal or psychotic now. To help decrease his suicide risk, as best I can, I am referring him for outpatient treatment including but not limited to medication management for long-term follow-up to have somewhere to goand someone to manage him as symptoms and stressors develop. This is the best way to keep him alive. So, we discussed a crisis plan for future suicidality: atthe first sign of distress, he will call the hotline; if this is not sufficient,he will 911, then call family members or friends; ultimately, he will come to the ER. MSE: Orientation: Alert and oriented to person, place, and time. Appearance/Behavior: Fair grooming and hygiene, calm, cooperative, engaged in the interview. Good eye contact. Normal psychomotor activity. Speech: regular rate, rhythm, volume, and tone. Non pressured. Knowledge: Appropriate for age and level of education Mood: okay Affect: reactive, mood-congruent Thought process: linear, logical, and goal-oriented Thought content: No SI/HI. No AVH. No delusions. He does not appear to be responding to internal stimuli. Concentration: Grossly intact based on track during the interview Associations: No loosening of associations Memory: Able to recall recent and remote historical information Insight: Fair, able to appreciate current symptoms and need for outpatient treatment Judgment: fair, agreed to follow treatment recommendations. Safety: The patient is not acutely psychotic, suicidal or homicidal and can continue treatment on an outpatient basis. He was made aware of the 25/03 emergency services of the crisis center and was advised to call 911 or go to the nearest ER in case of a crisis ( (including having thoughts of harming himself or others). Risks (metabolic, EPS, the effect on heart), benefits, and alternatives for all prescribed medications were discussed with the patient. His consent was obtained. He was advised not to drink alcohol while taking medications. Advised the use of drugs can make patient more impulsive leading to poor decisions and increasing his risk of suicide. Continue supportive therapy with some CBT techniques. Time spent discussing smoking cessation with patient: more than 10 minutes Condition Condition at Discharge: Stable Status at Discharge Functional status at discharge: independent ambulation Time Spent with Patient Time spent providing/coordinating discharge services (# min): 92 Exam Physical Exam Vital Signs: Temp Pulse Resp BP Pulse Ox O2 Del Method 98.4 F 65 18 136/85 98 Room Air 03/23/23 20:00 03/23/23 20:00 03/23/23 20:00 03/23/23 20:00 03/23/23 20:00 03/23/23 20:00 Discharge Plan Discharge Plan Activity: No Activity Restriction Diet: Regular Prescriptions: New trazodone 50 mg Tablet 50 mg PO QHS PRN (Reason: Insomnia) 15 Days Qty: 15 1RF gabapentin 100 mg Capsule 200 mg PO BID 15 Days Qty: 60 1RF escitalopram oxalate 10 mg Tablet 10 mg PO QAM 15 Days Qty: 15 1RF hydroxyzine pamoate 50 mg Capsule 50 mg PO Q6H PRN (Reason: Anxiety) 15 Days Qty: 30 0RF Continued dextroamphetamine-amphetamine [Adderall] 15 mg tablet 15 mg PO BID Patient Comments: TK 1 T PO BID hydroxyzine HCl 25 mg tablet 25 mg PO DAILY PRN (Reason: Anxiety) Patient Comments: TAKE 1 TABLET BY MOUTH EVERY DAY NEEDED olmesartan [Benicar] 40 mg tablet 40 mg PO DAILY 30 Days Qty: 30 0RF clonidine HCl 0.1 mg tablet 0.2 mg PO HS 15 Days Qty: 0 1RF folic acid 1 mg tablet 1 mg PO DAILY 30 Days Qty: 0 0RF Discontinued duloxetine [Cymbalta] 60 mg capsule,delayed release(DR/EC) 60 mg PO DAILY olanzapine 5 mg tablet 5 mg PO QHS Patient Comments: TAKE 1 TABLET BY MOUTH EVERY NIGHT AT BEDTIME No Action trazodone 300 mg tablet 300 mg PO HS Follow Up: Dr Vikram Newby [Other] (FAX: [phone]) Shakeel Kaye, [Primary Care Provider] - (Please contact for any medical needs or concerns) Documented By: Dwain Vann MD 3 0621 Signed By: <Electronically signed by Dwain Vann MD> 03/24/23 0610 [facility] Work Phone: Evaluation + Plan note Assessment and Plan from 05/02/2023 10:29 AM: * Why You Were Here: - Assessment and Plan from 05/02/2023 10:22 AM: * Brief Discharge Plan: Continue to hold your blood pressure medications clonidine and olmesartan fornow, as your blood pressure is currently normal without these medicationsContinue to work towards alcohol cessation and you can follow with Jarred today.Please measure your blood pressure once a day at home at different times and record this, and provide us information to your primary care physician. [facility] Evaluation noteNo assessment information available [facility] Work Phone: Evaluation note* Diagnosis Onset Date Resolution Status Alcohol dependence, uncomplicated acute Major depressive disorder, recurrent, moderate acute Alcohol dependence, uncomplicated acute Alcohol use disorder acute Major depressive disorder, recurrent, moderate acute [facility] Work Phone: Evaluation note* Diagnosis Hypotension, unspecified Alcohol dependence with withdrawal, uncomplicated (CMS/HCC) Alcohol dependence with intoxication, uncomplicated (CMS/HCC) Blood alcohol level of 80-99 mg/100 ml Acute kidney failure, unspecified (CMS/HCC) Acute kidney failure, unspecified Dehydration Other stimulant use, unspecified, uncomplicated Cannabis use, unspecified, uncomplicated Anxiety disorder, unspecified Allergy status to penicillin Other halfway (current) drug therapy Nausea with vomiting, unspecified documented in this encounter [facility] Work Phone: Evaluation note* Diagnosis Well adult health check- Primary Unspecified general medical examination Alcohol use disorder, severe, dependence (CMS-HCC) Needs flu shot Need for prophylactic vaccination and inoculation against influenza Vitamin D deficiency Class 2 severe obesity due to excess calories with serious comorbidity and body mass index (BMI) of 38.0 to 38.9 in adult MDD (major depressive disorder), severe (CMS-HCC) Essential hypertension Unspecified essential hypertension Abnormal liver function Unspecified disorder of liver documented in this encounter [facility] noteNo InformationNort [employer] Other History and physical note Author Dwain mercado [facility] March 21, 2023 2:22pm Note Date/Time March 21, 2023 9:19 am [facility] [address] [place] [address] Psychiatry H&P Signed Patient: Kandice Polanco MR#: [id number] : 1980 Acct:[id number] Age/Sex: 42 / M Adm Date: 3 Loc: 1S Room: 9A8087-7 Type: ADM IN Attending Dr: William Vann MD Copies to: Dwain Vann MD Shakeel Kaye DO~ Date of Service: 03/21/2023 HPI History of Present Illness History of present illness: Mr. Polanco is a 42 year old male with a reported history of who presents for inpatient admission due to worsening of depression and feeling suicidal. Reportedly, he presented to the [facility] emergency room with suicidal ideation. The patient states that he ran out of olanzapine prematurely, due to the fact that he started taking a bigger dose than what was prescribed. The patient states he felt like the olanzapine was working, but it was not a large enough dose. After running out of the olanzapine, the patient added that he started drinking heavy amounts of ethanol. Due to this, the patient relates these actions with the suicidal ideation coming about. His planwas to overdose on medications. Patient was personally seen by me on the day of the encounter.? I reviewed the history and performed the jones elements of the assessment.? I formulated the planof care and confirmed this with the Resident? as noted below At the time of the interview, he presented as depressed and anxious. He reports a long standing history of depression and anxiety. This morning, the patient presents as fatigued and tired. The patient confirms feelings of depression andanxiety. Relating to the depression, the patient states this started about a week ago, not drinking alcohol and being on the right path make it better, and using alcohol makes it worse. The patient describes his depression as restless,rates it a 6 out of 10 this morning, and is pretty constant throughout the day. Relating to the anxiety, the patient states that the anxiety has been going on for the last few months, not drinking alcohol and taking his meds seems to help his anxiety, and stressors in his life seems to make it worse. The patient doesnot know how to describe his anxiety, rates it an 8 out of 10 this morning, and the level varies throughout the day. Patient denies suicidal ideation, homicidal ideation, and hallucinations. Past psych history: Reports depression, anxiety, bipolar Past hospitalizations: Denies Past suicide attempts: Confirms. Last attempt was a few years ago. He took a whole bottle of Seroquel and drink copious amounts of alcohol. Family psych history: Grandmother on father's side had bipolar disorder and seasonal affective disorder. Father was diagnosed with major depressive disorder. Previous medications: Olanzapine, Adderall, duloxetine Alcohol and drug use: Vapes throughout the day. Drinks alcohol every day, various amounts. Confirms marijuana use has a vape and smoke. 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 Mental Status Exam: Appearance: Normal Mental Status: Grossly normal Mood: Depressed and anxious Affect: Slightly flat Speech and Movement: Speech and movement normal. Speech is clear. Attitude: Cooperative Thought Process: Goal directed Thought Content: Denies suicidal ideation, homicidal ideation, and hallucinations. Insight: Fair Judgment: Fair Review of Systems Constitutional: Pt denies fatigue, malaise. Neuro: Denies dizziness/lightheadedness. Denies TBI, seizure, memory loss. Denies numbness/tingling in extremities HEENT: Denies vision/hearing changes. Pulmonary: Denies SOB, dyspnea, cough, wheezing. Cardiac: Denies chest pain/pressure. Denies edema, palpitations. GI: Denies abdominal pain, heartburn, N/V. Denies constipation and diarrhea : Denies dysuria, hematuria, polyuria. Physical exam General: not in any acute distress Skin: intact HEENT: head atraumatic, face symmetrical. Pulm: Breathing normally without excessive effort Cardio: Regular rate and rhythm Abdomen: Normal inspection Musculoskeletal: Moves all extremities, normal strength all extremities. Neuro: Pt alert, oriented x3. Gait normal. CNII: Visual armstrong intact CNIII,IV,: EOM intact, no nystagmus. CNV: Sensation intact to light touch. CNVII: Raises eyebrows, smile/frown, puff out cheeks symmetrically. CNVIII: Hearing intact bilaterally. CNIX,X: Voice normal, soft palate elevation normal, symmetrical. CNXI: Shoulder shrug strong, equal bilaterally. CNXII: Tongue protrusion midline PMFSH Vaccinated for COVID-19?: Unknown Medical History (Updated 03/21/23 @ 14:20 by William Vann MD) Acid reflux Anxiety Depression Fatty liver Sleep apnea Surgical History [place] teeth removed Family History Mother Hypertension Father Hypertension Grandparent Diabetes Stroke Colon cancer Grandparent Stroke Colon cancer Social History Smoking Status: Current every day smoker Tobacco Type: e-cigarettes Substance Use Type: Alcohol and Marijuana Substance Abuse Comment: last smoked 2 days ago Meds Medications and Allergies Allergies codeine Allergy (Verified 03/20/23 17:50) Unknown Reaction erythromycin base Adverse Reaction (Verified 03/20/23 17:50) Itching Penicillins Adverse Reaction (Verified 03/20/23 17:50) Itching sulfamethoxazole [From Bactrim] Adverse Reaction (Verified 03/20/23 17:50) Unknown Reaction trimethoprim [From Bactrim] Adverse Reaction (Verified 03/20/23 17:50) Unknown Reaction Home Medications dextroamphetamine-amphetamine 15 mg tablet (Adderall) 15 mg PO BID 09/29/18 [History Confirmed 03/20/23] clonidine HCl 0.1 mg tablet 0.2 mg PO HS 01/24/23 [History Confirmed 03/20/23] duloxetine 60 mg capsule,delayed release (Cymbalta) 60 mg PO DAILY 01/24/23 [History Confirmed 03/20/23] folic acid 1 mg tablet 1 mg PO DAILY 01/24/23 [History Confirmed 03/20/23] olmesartan 40 mg tablet (Benicar) 40 mg PO DAILY 01/24/23 [History Confirmed 03/20/23] trazodone 300 mg tablet 300 mg PO HS 01/24/23 [History Confirmed 03/20/23] hydroxyzine HCl 25 mg tablet 25 mg PO DAILY PRN Anxiety 03/20/23 [History Confirmed 03/20/23] olanzapine 5 mg tablet 5 mg PO QHS 03/20/23 [History Confirmed 03/20/23] Exam Physical Exam Vital Signs: Temp Pulse Resp BP Pulse Ox O2 Del Method 97.6 F 77 18 151/90 H 100 Room Air 03/21/23 08:00 03/21/23 08:00 03/21/23 08:00 03/21/23 08:00 03/21/23 08:00 03/21/23 08:00 Results Labs 03/20/23 18:29 03/20/23 18:29 Psychiatry Labs: 03/20/23 03/20/2323 18:05 18:29 18:29 RBC 4.24 Hgb 14.5 Hct 41.6 MCV 98.0 MCH 34.1 MCHC 34.8 RDW 13.7 Plt Count 323 MPV 7.1 Sodium 137 Potassium 3.6 Chloride 100 Carbon Dioxide 23.2 Anion Gap 17.4 H BUN 11 Creatinine 0.91 Calcium 8.6 Total Bilirubin 0.5 AST 49 H ALT 39 Alkaline Phosphatase 94 Total Protein 7.2 Albumin 4.2 Urine Color Yellow Urine Appearance Clear Urine pH 5.0 Ur Specific [place] 1.022 Urine Protein Negative Urine Glucose (UA) Normal Urine Ketones 1+ H Urine Occult Blood Negative Urine Nitrite Negative Ur Leukocyte Esterase 1+ H Urine RBC 0-1 Urine WBC 0-1 Assessment/Plan (1) Major depressive disorder, recurrent, moderate: Plan: Admit to for management of depression and to ensure safety of self due to SI. Start Lexapro 5 mg PO Q daily and Gabapentin 200 mg PO TID Patient reports that he has not been compliant with his psychiatric meds but wasover taking his prescribed Zyprexa. Monitor suicidal behaviors for safety of self (15-minute face check). Recommend attending groups and psychoeducation for building coping skills. Risks, benefits and indications of medications were discussed with the patient. The patient verbalized understanding. No abnormal movements noted on exam. AIMS is Zero. Involve friends/family members to coordinate care and ensure appropriate outpatient appointments are scheduled prior to discharge. Code(s): F33.1 - Major depressive disorder, recurrent, moderate Status: Acute (2) Alcohol dependence, uncomplicated: Code(s): F10.20 - Alcohol dependence, uncomplicated Status: Acute Plan Start Lexapro and Gabapentin for previous substance abuse tendencies. Documented By: Dwain Vann MD 3 [id number] Signed By: <Electronically signed by Dwain Vann MD> 03/21/23 5316 [facility] Work Phone: History general Narrative - Reported* Type Description Date Medical History ANXIETY Medical History DEPRESSION Medical History HX OF ALCOHOL ABUSE Medical History ADHD Medical History MOOD SWINGS Medical History BIPOLAR Surgical History ORAL SURGERY Surgical History COSMETIC SURGERY-HAIR Surgical History vasectomy [facility] Discharge instructions Chest Pain/Heart Attack Information from 05/02/2023 10:29 AM: * Has Patient had Chest Pain or an W[place] during this Visit? : No * It is important to understand risk factors for heart disease : It is important to understand risk factors for heart disease * so you can work with your doctor to help prevent further cardiac : so you can work with your doctorto help prevent further cardiac injury. COPD Information from 05/02/2023 10:29 AM: * Does Patient have a problem/diagnosis of COPD? : No Medication Plan/Information for Discharge from 05/02/2023 10:29 AM: * Discharge Medication : None Patient Transfer Information from 05/02/2023 10:29 AM: * Course of treatment during hospitalization: : - * Transition Record Discussed and Provided to Patient Caregiver : Yes Physician Follow-up Plan/Appointments from 05/02/2023 10:55 AM: * Discharge Physician: : Favian Sheppard DO ([id number]) - Hospitalist * Patient stated Primary Care Provider : PCP, Other (PCP) ([facility] [id number]) - Medical * Follow up with PCP in : 5 * Schedule follow up with PCP in: : Day(s) Stroke/TIA Discharge Information from 05/02/2023 10:29 AM: * Does the Patient Have a Problem/Diagnosis of Stroke this visit? : No [facility] InstructionsNot on filedocumented in this encounter [facility]ructionsNot on filedocumented in this encounter [facility] note Author Dwain mercado [facility] March 22, 2023 5:57pm Note Date/Time March 22, 2023 3:06 pm [facility] [address] [place] [address] Psychiatry Progress Note Signed Patient: Kandice Polanco MR#: [id number] : 1980 Acct:[id number] Age/Sex: 42 / M Adm Date: 3 Loc: 1S Room: [address] [place] [address] Type : ADM IN Attending Dr: William Vann MD Copies to: ~ Date of Service: 03/22/2023 Subjective Subjective Narrative: Mr. Polanco reported that he is feeling weak this morning. He confirms feelings of depression and anxiety this morning. Relating to his depression, the patientreports this is a continuation of the depressed mood from his admittance to . Medicine makes his depression better, while thinking makes his depression worse. He describes his depression as panicky , rates it an 8 out of 10 this morning,and comes and goes in waves throughout the day. Patient was personally seen by me on the day of the encounter. I reviewed the history and performed the jones elements of the assessment. I formulated the planof care and confirmed this with the Resident as noted below Patient reports that meds are making him lethargic. He is worried about paying his bills in a timely manner. Relating to his anxiety, the patient notes that the anxiety is a continuance from his admitted to . Medicine makes his anxiety better, well thinking makes his anxiety worse. He describes his anxietyas worrying, rates it an 8 out of 10 this morning, and waves up and down throughout the day. On inquiring about his plan after discharge, he says that he wants to start therapy, stay sober, going to recovery, and stay cognitive andclean from drugs. The patient also reports a strong family support in relationships, particularly noting his parents. Labs performed on March 20, 2023showed marijuana and amphetamines in his urine, 1+ leukocyte esterase, 1+ ketones, high triglyceride level at 177, high AST level at 49, and high anion gap at 17.4. Mental Status Exam: Appearance: Tired Mental Status: Grossly normal Mood: Depressed and anxious Affect: Flat Speech and Movement: Speech and movement are normal. Speech is slightly slurred. Attitude: Cooperative Thought Process: Normal Thought Content: Patient denies suicidal ideation, homicidal ideation, and hallucinations. Insight: Fair. Improving. Judgment: Fair. Improving. Exam Physical Exam Vital Signs: Temp Pulse Resp BP Pulse Ox O2 Del Method 98.0 F 60 16 152/87 H 96 Room Air 03/22/23 12:03/22/23 12:03/22/23 12:03/22/23 12:00 03/22/23 12:03/22/23 12:00 Narrative: Physical exam General: not in any acute distress Skin: intact HEENT: head atraumatic, face symmetrical. Pulm: Breathing normally without excessive effort Cardio: Regular rate and rhythm Abdomen: Normal inspection Musculoskeletal: Moves all extremities, normal strength all extremities. Neuro: Pt alert, oriented x3. Gait normal. CNII: Visual armstrong intact CNIII,IV,: EOM intact, no nystagmus. CNV: Sensation intact to light touch. CNVII: Raises eyebrows, smile/frown, puff out cheeks symmetrically. CNVIII: Hearing intact bilaterally. CNIX,X: Voice normal, soft palate elevation normal, symmetrical. CNXI: Shoulder shrug strong, equal bilaterally. CNXII: Tongue protrusion midline Assessment/Plan Assessment/Plan (1) Major depressive disorder, recurrent, moderate: Code(s): F33.1 - Major depressive disorder, recurrent, moderate Status: Acute (2) Alcohol dependence, uncomplicated: Code(s): F10.20 - Alcohol dependence, uncomplicated Status: Acute Plan Patient reports medications are making him feel anxiety May increase Lexapro to 10 mg depending on response to treatment Switch Gabapentin to 200 mg PO BID to avoid lethargy (down from 300 mg pO TID) Monitor suicidal behaviors for safety of self (15-minute face check). Recommend attending groups and psychoeducation for building coping skills. Risks, benefits and indications of medications were discussed with the patient. The patient verbalized understanding. No abnormal movements noted on exam. AIMS is Zero. Involve friends/family members to coordinate care and ensure appropriate outpatient appointments are scheduled prior to discharge. Documented By: Dwain Vann MD 3 0028 Signed By: <Electronically signed by Dwain Vann MD> 03/22/23 8087 [facility] Work Phone: Progress note Author Dwain mercado [facility] March 23, 2023 6:43am Note Date/Time March 23, 2023 6:43 am [facility] [address] [place] [address] Psychiatry Progress Note Signed Patient: Kandice Polanco MR#: [id number] : 1980 Acct:[id number] Age/Sex: 42 / M Adm Date: 3 Loc: Room: [address] [place] [address] Type : ADM IN Attending Dr: William Vann MD Copies to: ~ Date of Service: 03/23/2023 Subjective Subjective Narrative: Mr. Polanco reported that his depression comes and goes but is better, Sleep has been improving and anxiety is moderate. He is thinking about staying with his parents when discharged. He said he misses his cats. We discussed importance of med compliance. Anxiety is moderate in intensity with attempted utilization of coping skills. He denies SI/HI and verbalized the intent to notify staff if he has such thoughts. His symptoms improving and his affect is becoming brighter.He continues to be compliant with prescribed medications and is visible within the unit milieu. He alluded to psychosocial stressors being the primary issue that he is struggling with. We have agreed to continue the current medications regimen and increase Lexapro to 10 mg. Risks, benefits, and indications of medications were discussed. Appearance: dressed casually Mental Status: mental status grossly normal Mood: Euthymic mood Affect: Normal affect Speech and Movement: speech and movement normal and speech clear Attitude: cooperative Thought Process: normal Thought Content: Denied hallucinations, no homicidality and no suicidality Insight: fair Judgment: fair Impulse control: fair Exam Physical Exam Vital Signs: Temp Pulse Resp BP Pulse Ox O2 Del Method 97.5 F L 57 L 16 139/84 100 Room Air 03/23/23 06:05 03/23/23 06:05 03/23/23 06:05 03/23/23 06:05 03/23/23 06:05 03/23/23 06:05 Assessment/Plan Assessment/Plan (1) Major depressive disorder, recurrent, moderate: Code(s): F33.1 - Major depressive disorder, recurrent, moderate Status: Acute (2) Alcohol dependence, uncomplicated: Code(s): F10.20 - Alcohol dependence, uncomplicated Status: Acute Plan Patient reports medications are helping and anxiety is moderate Increase Lexapro to 10 mg PO Q daily Continue Gabapentin 200 mg PO BID to avoid lethargy (down from 300 mg pO TID) Monitor suicidal behaviors for safety of self (15-minute face check). Recommend attending groups and psychoeducation for building coping skills. Risks, benefits and indications of medications were discussed with the patient. The patient verbalized understanding. No abnormal movements noted on exam. AIMS is Zero. Involve friends/family members to coordinate care and ensure appropriate outpatient appointments are scheduled prior to discharge. Documented By: Dwain Vann MD 3 0640 Signed By: <Electronically signed by Dwain Vann MD> 03/23/23 0643 [facility] Work Phone: Assessments Diagnosis Toxic metabolic encephalopathy- Primary Sepsis (HCC) Aspiration pneumonia (HCC) Pneumonitis due to inhalation of food or vomitus Altered mental state Altered mental status Non-traumatic rhabdomyolysis Acute respiratory failure (HCC) Acute respiratory failure Alcohol abuse Alcohol abuse, unspecified Right sided weakness Muscle weakness (generalized) Bipolar 1 disorder, depressed, severe (HCC) Bipolar I disorder, most recent episode (or current) depressed, severe, without mention of psychotic behavior History of Present Illness * Jimenez Jimenez RN - 05/15/2019 6:40 PM EDT Patient discharged at 1830 to [place] via transportation. Patient educated and given discharge instructions. All questions answered. IV removed. Patient left with all belongings. * Jimenez Jimenez RN - 05/15/2019 2:19 PM EDT Report called to Martha RIVERA at [place]. All questions answered * Марина Velasquez MD - 05/15/2019 8:27 AM EDT [facility] IN-PATIENT SERVICE [facility] Progress Note 05/15/2019 8:27 AM Name: Kandice Polanco Acct: [id number] Room: [facility] Day: 3 Admit Date: 05/12/2019 4:02 PM PCP: Shakeel Kaye Code Status: Full Code Subjective: C/C: No chief complaint on file. unresponsive - Drug Overdose Interval History Status: improved. Patient is doing OK, He is off oxygen now ans is having dry cough. Mild tremors. No hallucinations . Brief History: The patient is a 39 y.o. male who is admitted he was transferred from [facility] . Patient was found down unresponsiveness at home . Patient has known history of anxiety, depression, ADHD, alcohol abuse. Patient had DUI few weeks ago and was fired from his job few days ago. Patient had reported suicidal intention to his family but had informed that he does not have a plan. He reports that he had been drinking Liquor / Vodka all day and took handful of Seroquel at home .. Initial evaluation showed alcohol level 118, lactic acid 4.2, creatinine 1.47. Chest x-ray showed right upper lobe infiltrate likely aspiration pneumonia. Patient received Narcan without any response. Patient is on Depakote at home. Level was supratherapeutic. Patient was loaded with Keppra in ER. Patient was intubated in [place] and transferred to [facility] for further treatment. Patient was extubated successfully and was maintaining his airway. Patient was transferred out on medical ICU and remained stable with mild alcohol withdrawal symptoms. Patient was treated with Librium. He had aspiration pneumonia and treated with Augmentin. Patient has non traumatic Rhabdo and improved with IC fluids. Patient was having hypoxia due to aspiration pneumonia and was treated with oxygen. Review of Systems: Review of Systems Constitutional: Negative for activity change, appetite change, fatigue, fever and unexpected weightchange. HENT: Negative for congestion, nosebleeds, rhinorrhea, sinus pressure, sneezing and voice change. Respiratory: Negative for cough, choking, chest tightness, shortness of breath and wheezing. Cardiovascular: Negative for chest pain, palpitations and leg swelling. Gastrointestinal: Negative for abdominal pain, constipation, diarrhea, nausea and vomiting. Genitourinary: Negative for difficulty urinating, discharge, dysuria, frequency and testicular pain. Musculoskeletal: Negative for back pain. Skin: Negative for rash. Neurological: Negative for dizziness, weakness, light-headedness and headaches. Hematological: Does not bruise/bleed easily. Psychiatric/Behavioral: Negative for agitation, behavioral problems, confusion, self-injury, sleep disturbance and suicidal ideas. Medications: Allergies: Allergies Allergen Reactions Pcn [Penicillins] Hives Sulfa Antibiotics Hives Codeine Sulfamethoxazole-Trimethoprim Current Meds: Scheduled Meds: chlordiazePOXIDE 10 mg Oral TID pantoprazole 40 mg Oral QAM AC folic acid IVPB 1 mg Intravenous Daily sodium chloride flush 10 mL Intravenous 2 times per day enoxaparin 40 mg Subcutaneous Daily chlorhexidine 15 mL Mouth/Throat BID famotidine (PEPCID) injection 20 mg Intravenous BID clindamycin (CLEOCIN) IV 600 mg Intravenous Q8H Continuous Infusions: PRN Meds: calcium carbonate, acetaminophen, benzocaine-menthol, benzocaine- menthol, sodium chlorideflush, magnesium hydroxide, ondansetron Data: Past Medical History: has a past medical history of Hypertension. Social History: reports that he has never smoked. He has never used smokeless tobacco. He reports that he drinks alcohol. He reports that he does not use drugs. Family History: History reviewed. No pertinent family history. Vitals: BP 124/89 Pulse 71 Temp 98.3 F (36.8 C) (Oral) Resp 17 Ht 6' (1.829 m) Wt 229 lb 15 oz (104.3 kg) SpO2 97% BMI 31.19 kg/m Temp (24hrs), Av.1 F (36.7 C), Min:97 F (36.1 C), Max:99 F (37.2 C) Recent Labs 05/13/19 0506 POCGLU 142* I/O (24Hr): Intake/Output Summary (Last 24 hours) at 05/15/2019 0827 Last data filed at 05/15/2019 0701 Gross per 24 hour Intake 1128 ml Output Net 1128 ml Labs: Hematology: Recent Labs 05/12/19 1825 05/13/19 0048 05/13/19 0401 05/14/19 0338 05/15/19 0647 WBC 16.5* -- 16.8* 10.7 9.2 RBC 4.56 -- 4.17* 3.81* 3.94* HGB 15.4 -- 14.1 12.9* 13.1 HCT 46.0 -- 42.6 38.7* 39.4* MCV 100.9 -- 102.2 101.6 100.0 MCH 33.8* -- 33.8* 33.9* 33.2 MCHC 33.5 -- 33.1 33.3 33.2 RDW 12.9 -- 13.1 12.9 12.7 PLT 235 -- 214 195 207 MPV 9.9 -- 10.1 10.1 10.2 CRP -- 97.5* -- -- -- INR 1.0 -- -- -- -- Chemistry: Recent Labs 05/12/19 1825 05/13/19 0401 05/14/19 0338 05/15/19 0647 NA 141 139 140 137 K 4.6 4.3 3.7 3.5* CL 103 104 106 101 CO2 23 22 24 24 GLUCOSE 90 134* 106* 103* BUN 17 15 10 5* CREATININE 1.13 1.02 0.79 0.62* MG 1.6 -- -- 2.1 ANIONGAP 15 13 10 12 LABGLOM >60 >60 >60 >60 GFRAA >60 >60 >60 >60 CALCIUM 8.3* 7.9* 7.9* 8.5* CAION 1.06* -- -- -- CKTOTAL 11,649* 6,913* 3,458* 2,301* MYOGLOBIN 1,739* 605* -- -- LACTACIDWB 2.5* -- -- -- Recent Labs 05/12/19182405/13/1940005/13/19 0506 05/14/19 0338 05/15/19 0647 PROT 6.9 6.2* -- 5.8* 6.2* LABALBU 3.8 3.3* -- 2.8* 3.2* AST 121* 89* -- 68* 61* ALT 61* 52* -- 41 39 ALKPHOS 81 70 -- 67 61 BILITOT 0.77 0.62 -- 0.54 0.58 AMMONIA 17 -- -- -- -- POCGLU -- -- 142* -- -- ABG: Lab Results Component Value Date POCPH 7.452 05/13/2019 POCPCO2 37.4 05/13/2019 POCPO2 92.8 05/13/2019 POCHCO3 26.1 05/13/2019 NBEA NOT REPORTED 05/13/2019 PBEA 2 05/13/2019 AHT2FGB 27 05/13/2019 JJAE8GUX 98 05/13/2019 FIO2 30.0 05/13/2019 Lab Results Component Value Date/Time SPECIAL R AC 20MLS 05/12/2019 08:07 PM Lab Results Component Value Date/Time CULTURE NO GROWTH 3 DAYS 05/12/2019 08:07 PM Radiology: Ct Cervical Spine Wo Contrast Result Date: 05/13/2019 No acute abnormality of the cervical spine. Xr Chest Portable Result Date: 05/12/2019 Endotracheal tube tip is approximately 5-6 cm above the roxi. Mild patchy perihilar vascular crowding and atelectasis/airspace disease. Mri Brain Wo Contrast Result Date: 05/14/2019 Negative for stroke, midline shift or mass effect. Few scattered foci of nonspecific T2 prolongation identified within periventricular subcortical white matter. Findings can be seen in setting of acute underlying headache syndrome, developing chronic small ischemic disease, less likely vasculitis/demyelinating process. Physical Examination: Physical Exam Constitutional: He is oriented to person, place, and time. Vital signs are normal. He is cooperative. No distress. HENT: Head: Normocephalic and atraumatic. Nose: Right sinus exhibits no maxillary sinus tenderness and no frontal sinus tenderness. Left sinus exhibits no maxillary sinus tenderness and no frontal sinus tenderness. Mouth/Throat: Oropharynx is clear and moist. No oropharyngeal exudate. Eyes: Pupils are equal, round, and reactive to light. Conjunctivae and EOM are normal. No scleral icterus. Neck: Full passive range of motion without pain. Neck supple. No JVD present. No thyromegaly present. Cardiovascular: Normal rate, regular rhythm and normal heart sounds. No murmur heard. Pulses: Dorsalis pedis pulses are 2+ on the right side, and 2+ on the left side. Pulmonary/Chest: Effort normal and breath sounds normal. He has no wheezes. He has no rales. Abdominal: Soft. He exhibits no mass. There is no tenderness. Lymphadenopathy: Head (right side): No submandibular adenopathy present. Head (left side): No submandibular adenopathy present. He has no cervical adenopathy. Neurological: He is alert and oriented to person, place, and time. He displays no tremor. Skin: Skin is warm. He is not diaphoretic. Nursing note and vitals reviewed. Assessment: Hospital Problems Last Modified POA * (Principal) Toxic metabolic encephalopathy 05/14/2019 Yes Aspiration pneumonia (HCC) 05/12/2019 Yes Alcohol abuse 05/12/2019 Yes Right sided weakness 05/13/2019 Yes Bipolar 1 disorder, depressed, severe (HCC) 05/14/2019 Yes Plan: 1. Suicidal attempt by alcohol intoxication and drug overdose due to Seroquel- psychiatric consultation 2. Acute respiratory failure -was intubated- s/p extubation - stable off oxygen, 3. Alcohol abuse with intoxication -monitor for withdrawal, Librium 10 mg 3 times daily. 4. ADHD -on Adderall 5. Bipolar 1 disorder with severe depression - 6. Nontraumatic rhabdomyolysis - improved . Encourage fluid kidney function normal . 7. Aspiration pneumonia - clindamycin for 7 days . Medically cleared for discharge to [facility] Марина Velasquez MD 05/15/2019 8:27 AM * Elvira Raygoza, MANAGER OF PMO - FULL STACK SOFTWARE ENGINEER - 05/15/2019 8:21 AM EDT NEUROLOGY INPATIENT PROGRESS NOTE 05/15/2019 Subjective: Kandice Polanco is a 39 y.o. male admitted on 05/12/2019. Chart reviewed. Discussed with RN. Patient examined. No acute events overnight. Patient denies any right sided weakness. Denies any headache, vision changes, numbness, tingling. He is alert and oriented with family at the bedside. HPI: Briefly, this is a 39 y.o. male with H/O HTN, anxiety, depression, ADHD on Depakote, alcohol use disorder, who was admitted on 05/12/2019 after being found unresponsive at home by his parents. They reported slurred speech at the time. The patient was recently fired for alcohol use and has a history of suicidal ideation. There were reports of patient taking several pills of Seroquel and he wasalso intoxicated. UDS positive for amphetamines, TCA. Ethanol level 118. Neurology was consulted due to questionable right-sided weakness; MRI brain negative for acute stroke. No current facility-administered medications on file prior to encounter. Current Outpatient Medications on File Prior to Encounter Medication Sig Dispense Refill amphetamine-dextroamphetamine (ADDERALL) 15 MG tablet dextroamphetamine- amphetamine 15 mg tablet 5 mg by oral route. divalproex (DEPAKOTE ER) 250 MG extended release tablet Take 1 tablet by mouth nightly divalproex (DEPAKOTE ER) 500 MG extended release tablet Take 3 tablets by mouth nightly QUEtiapine (SEROQUEL) 100 MG tablet Take 1 tablet by mouth nightly QUEtiapine (SEROQUEL) 25 MG tablet Take 2 tablets by mouth nightly sertraline (ZOLOFT) 100 MG tablet Take 2.5 tablets by mouth daily venlafaxine (EFFEXOR) 50 MG tablet Take 1 tablet by mouth daily Allergies: Kandice Polanco is allergic to pcn [penicillins]; sulfa antibiotics; codeine; and sulfamethoxazole-trimethoprim. Past Medical History: Diagnosis Date Hypertension Past Surgical History: Procedure Laterality Date COLONOSCOPY COSMETIC SURGERY hair transplants ENDOSCOPY, COLON, DIAGNOSTIC Social History: Kandice Polanco reports that he has never smoked. He has never used smokeless tobacco. He reports that he drinks alcohol. He reports that he does not use drugs. History reviewed. No pertinent family history. Objective: BP 124/89 Pulse 71 Temp 98.3 F (36.8 C) (Oral) Resp 17 Ht 6' (1.829 m) Wt 229 lb 15 oz (104.3 kg) SpO2 97% BMI 31.19 kg/m Blood pressure range: Systolic (24hrs), Av , Min:119 , Max:142 ; Diastolic (24hrs), Av, Min:84, Max:95 Review of Systems: Constitutional Negative for fever and chills HEENT Negative for ear discharge, ear pain, nosebleed Eyes Negative for photophobia, pain and discharge Respiratory Negative for hemoptysis and sputum Cardiovascular Negative for orthopnea, claudication and PND Gastrointestinal Negative for abdominal pain, diarrhea, blood in stool Musculoskeletal Negative for joint pain, negative for myalgia Skin Negative for rash or itching Endo/heme/allergies Negative for polydipsia, environmental allergy Psychiatric/behavioral Negative for suicidal ideation. Patient is not anxious NEUROLOGIC EXAMINATION GENERAL Appears comfortable and in no distress HEENT NC/ AT NECK Supple MENTAL STATUS: Alert, oriented, intact memory, no confusion, normal speech, normal language, no hallucination or delusion CRANIAL NERVES: II - Visual armstrong intact to confrontation III,IV, - EOMs full, no afferent defect, no JESSICA, no ptosis V - Normal facial sensation VII - Normal facial symmetry VIII - Intact hearing IX,X - Symmetrical palate XI - Symmetrical shoulder shrug XII - Midline tongue, no atrophy MOTOR FUNCTION: significant for good strength of grade 5/5 in bilateral proximal and distal muscle groups of both upper and lower extremities with normal bulk, normal tone and no involuntary movements, no tremor SENSORY FUNCTION: Normal touch, normal pin CEREBELLAR FUNCTION: Intact fine motor control over upper limbs REFLEX FUNCTION: Symmetric, no perverted reflex, no Babinski sign STATION and GAIT Not tested Data: Lab Results: CBC: Recent Labs 05/13/19 0401 05/14/19 0338 05/15/19 0647 WBC 16.8* 10.7 9.2 HGB 14.1 12.9* 13.1 PLT 214 195 207 BMP: Recent Labs 05/13/19 0401 05/14/19 0338 05/15/19 0647 NA 139 140 137 K 4.3 3.7 3.5* CL 104 106 101 CO2 22 24 24 BUN 15 10 5* CREATININE 1.02 0.79 0.62* GLUCOSE 134* 106* 103* Lab Results Component Value Date ALT 39 05/15/2019 AST 61 (H) 05/15/2019 INR 1.0 05/12/2019 Diagnostic data reviewed: BRAIN MRI (05/14/19) - Negative for stroke, midline shift or mass effect. Few scattered foci of nonspecific T2 prolongation identified within periventricular subcortical white matter. Findings can be seen in setting of acute underlying headache syndrome, developing chronic small ischemic disease, less likely vasculitis/demyelinating process. Impression: Mr. Kandice Polanco is a 39 y.o. male with 1. Toxic metabolic encephalopathy in the setting of Seroquel overdose and alcohol intoxication; resolved 2. Question of right-sided weakness, resolved 3. History of alcohol abuse Plan: -MRI brain with no acute stroke -Patient remains on Librium -Patient plans to transfer to [facility] today -Neurology to sign off. Please call with any questions. * Jimenez Jimenez RN - 05/14/2019 7:34 PM EDT Guard at bedside, all plastic and harmful materials removed. Patient states currently not suicidal.No attempt at self harm. Patient agreeable to [facility] at [facility]. * Chelle Abdi Sa, MD - 05/14/2019 9:42 AM EDT NEUROLOGY INPATIENT PROGRESS NOTE 05/14/2019 Subjective: Kandice Polanco is a 39 y.o. male admitted on 05/12/2019 with Sepsis (HCC) [A41.9] Briefly, this is a 39 y.o. male admitted on 05/12/2019 with acute change in mental status and was intubated due to low GCS. He is status post extubation yesterday. Neurology followed up the patient for concern of right hemiparesis. Today, no acute events overnight. Complains of bilateral lower extremity soreness. No subjective weakness, numbness, or tingling. No current facility-administered medications on file prior to encounter. No current outpatient medications on file prior to encounter. Allergies: Kandice Polanco is allergic to pcn [penicillins] and sulfa antibiotics. Past Medical History: Diagnosis Date Hypertension Past Surgical History: Procedure Laterality Date COLONOSCOPY COSMETIC SURGERY hair transplants ENDOSCOPY, COLON, DIAGNOSTIC Medications: folic acid IVPB 1 mg Intravenous Daily sodium chloride flush 10 mL Intravenous 2 times per day enoxaparin 40 mg Subcutaneous Daily chlorhexidine 15 mL Mouth/Throat BID famotidine (PEPCID) injection 20 mg Intravenous BID clindamycin (CLEOCIN) IV 600 mg Intravenous Q8H PRN Meds include: acetaminophen, benzocaine-menthol, LORazepam OR LORazepam OR LORazepam OR LORazepam OR LORazepam OR LORazepam OR LORazepam OR LORazepam, benzocaine-menthol, sodium chloride flush, magnesium hydroxide, ondansetron Objective: BP (!) 148/93 Pulse 70 Temp 97.7 F (36.5 C) (Oral) Resp 24 Ht 6' (1.829 m) Wt 229 lb 15 oz (104.3 kg) SpO2 (!) 89% BMI 31.19 kg/m Blood pressure range: Systolic (24hrs), Av , Min:72 , Max:165 ; Diastolic (24hrs), Av, Min:61, Max:99 ROS: Review of Systems Constitutional: Negative for activity change, diaphoresis and unexpected weight change. HENT: Negative for congestion, mouth sores and sneezing. Eyes: Negative. Respiratory: Negative. Cardiovascular: Negative. Gastrointestinal: Negative. Genitourinary: Negative. Musculoskeletal: Positive for myalgias. Negative for arthralgias, back pain, gait problem, joint swelling, neck pain and neck stiffness. Skin: Negative. Neurological: Negative for dizziness, tremors, seizures, syncope, facial asymmetry, speech difficulty, weakness, light-headedness, numbness and headaches. Hematological: Negative. NEUROLOGIC EXAMINATION Physical Exam Constitutional: He is oriented to person, place, and time. He appears well- developed and well-nourished. HENT: Head: Normocephalic and atraumatic. Eyes: Pupils are equal, round, and reactive to light. Conjunctivae and EOM are normal. Neck: Normal range of motion. Neck supple. Cardiovascular: Normal rate, regular rhythm, normal heart sounds and intact distal pulses. Pulmonary/Chest: Effort normal and breath sounds normal. Abdominal: Soft. Bowel sounds are normal. Musculoskeletal: Normal range of motion. Neurological: He is alert and oriented to person, place, and time. He displays no atrophy, no tremor and normal reflexes. No cranial nerve deficit or sensory deficit. He exhibits normal muscle tone. He displays no seizure activity. Coordination normal. GCS eye subscore is 4. GCS verbal subscore is 5. GCS motor subscore is 6. He displays no Babinski's sign on the right side. He displays no Babinski's sign on the left side. Reflex Scores: Tricep reflexes are 2+ on the right side and 2+ on the left side. Bicep reflexes are 2+ on the right side and 2+ on the left side. Brachioradialis reflexes are 2+ on the right side and 2+ on the left side. Patellar reflexes are 2+ on the right side and 2+ on the left side. Achilles reflexes are 2+ on the right side and 2+ on the left side. Skin: Skin is warm and dry. . Neurologic Exam Mental Status Oriented to person, place, and time. Cranial Nerves CN III, IV, Pupils are equal, round, and reactive to light. Extraocular motions are normal. Gait, Coordination, and Reflexes Reflexes Right brachioradialis: 2+ Left brachioradialis: 2+ Right biceps: 2+ Left biceps: 2+ Right triceps: 2+ Left triceps: 2+ Right patellar: 2+ Left patellar: 2+ Right achilles: 2+ Left achilles: 2+ Lab Results: CBC: Recent Labs 05/12/19 1825 05/13/19 0401 05/14/19 0338 WBC 16.5* 16.8* 10.7 HGB 15.4 14.1 12.9* PLT 235 214 195 BMP: Recent Labs 05/12/19 1825 05/13/19 0401 05/14/19 0338 NA 141 139 140 K 4.6 4.3 3.7 CL 103 104 106 CO2 23 22 24 BUN 17 15 10 CREATININE 1.13 1.02 0.79 GLUCOSE 90 134* 106* Lab Results Component Value Date ALT 41 05/14/2019 AST 68 (H) 05/14/2019 INR 1.0 05/12/2019 No results found for: PHENYTOIN, PHENYTOIN, VALPROATE, CBMZ IMAGING Cervical spine CT No acute abnormality of the cervical spine. ASSESSMENT Acute toxic metabolic encephalopathy -improving Rhabdomyolysis Transient right hemiparesis, possibly Earl's paralysis Rule out seizure PLAN 1.) EEG 2.) MRI brain with and without contrast 3.) Continue IV hydration for rhabdomyolysis Chelle Abdi MD PGY-2 Neurology Resident Associated attestation - Heath Pastrana DO - 05/14/2019 1:27 PM EDT Attending Physician Statement: I have discussed the case of Kandice Polanco, including pertinent history and exam findings with the resident. I have seen and examined the patient and the jones elements of the encounter have been performed by me. I have reviewed medications, clinical laboratory, imaging and other diagnostic tests with the residents. I agree with the assessment, plan and orders as documented by the resident with changes made to the note as needed. No issues overnight, transferred out of ICU. No further right sided weakness. MRI brain pending. Impression: Acute toxic metabolic encephalopathy secondary to Seroquel overdose, EtOH intoxication; resolved. Questionable right-sided weakness, no longer appreciated at this time. Rule out stroke History of alcohol abuse Plan: MRI brain pending Low suspicion for seizure, no EEG at this time Cont WA protocol, Librium Will follow Heath Pastrana DO 05/14/2019 1:25 PM * George Ontiveros - 05/14/2019 8:11 AM EDT Department of Neurological Sciences Progress Note SUBJECTIVE: CC: Unresponsive Interim HPI: Patient was extubated yesterday(05/13) AM, He is doing well today complaining of appropriate soreness in his throat. Also complaining of soreness/aches in his hips and lower back bilaterally, and to a lesser extent in his arms bilaterally as well. States he moves slowly due to the soreness but does not feel off balance/ataxic, vertigo. He slept well and is eating and drinking well. Hedenies SHELLEY, nausea, vomiting, tremors, fevers, hallucinations, abdominal pain, and urinary retention. HPI: 39 yo male with history of alcohol abuse and dependence, anxiety, depression, ADHD, and HTN who was found unresponsive. Per family, patient spoke to father at 2:30am sounding intoxicated and mentioned self harm. Family found patient that morning at 9am unresponsive. Patient had been fired fromwork that day for having alcohol on his breath and he states he took a bottle of his seroquel that night after he spoke to his father. [facility] where he was intubated and tested + foramphetamines and TCA. Alcohol level was 118, possible aspiration pneumonia on CXR. Was given 4mg ofnarcan without response and loaded with Keppra and Depakote d/t subtherapeutic levels. Home Meds: Zo loft, Seroquel, Depakote, Trazadone. OBJECTIVE: PHYSICAL EXAM: VITALS: Vitals: 05/14/19 0817 BP: Pulse: Resp: Temp: 97.7 F (36.5 C) SpO2: GENERAL: Patient is a well-developed, well-nourished male in no acute distress, alert and oriented x3, appropriate and pleasant conversation. HEAD: Normocephalic, atraumatic. EYES: Pupils equal, round and reactive to light and accommodation, extraocular movements intact. mild horizontal saccade bilaterally and bidirectionally ENT: Moist mucous membranes. No erythema is noted. NECK: Supple. No masses. No lymphadenopathy. CARDIOVASCULAR: Regular rate and rhythm. PULMONARY: Lungs are clear to auscultation bilaterally. ABDOMEN: Soft, nontender, nondistended. Positive bowel sounds. No hepatosplenomegaly. No CVA tenderness MUSCULOSKELETAL: Strength 5/5 bilaterally in all extremities. No tenderness to palpation of the ribs, long bones, or spine. Nontender to hip, spinal, and paraspinal palpation. Nopain with Anton test. NEUROLOGIC: Cranial nerves II through XII grossly intact. No focal deficits are noted. DATA CXR: Mild patchy perihilar vascular crowding and atelectasis/airspace disease. CT Spine: No acute abnormality of the cervical spine. MRI Head: Pending CBC with Differential: Lab Results Component Value Date WBC 10.7 05/14/2019 RBC 3.81 05/14/2019 HGB 12.9 05/14/2019 HCT 38.7 05/14/2019 PLT 195 05/14/2019 MCV 101.6 05/14/2019 MCH 33.9 05/14/2019 MCHC 33.3 05/14/2019 RDW 12.9 05/14/2019 LYMPHOPCT 20 05/14/2019 MONOPCT 7 05/14/2019 BASOPCT 0 05/14/2019 MONOSABS 0.74 05/14/2019 LYMPHSABS 2.14 05/14/2019 EOSABS 0.10 05/14/2019 BASOSABS 0.04 05/14/2019 DIFFTYPE NOT REPORTED 05/14/2019 CMP: Lab Results Component Value Date NA 140 05/14/2019 K 3.7 05/14/2019 CL 106 05/14/2019 CO2 24 05/14/2019 BUN 10 05/14/2019 CREATININE 0.79 05/14/2019 GFRAA >60 05/14/2019 LABGLOM >60 05/14/2019 GLUCOSE 106 05/14/2019 PROT 5.8 05/14/2019 LABALBU 2.8 05/14/2019 CALCIUM 7.9 05/14/2019 BILITOT 0.54 05/14/2019 ALKPHOS 67 05/14/2019 AST 68 05/14/2019 ALT 41 05/14/2019 Urine Toxicology: No components found for: IAMMENTA, IBARBIT, IBENZO, ICOCAINE, IMARTHC, IOPIATES, IPHENCYC CK: 3458 (05/14), 6913 (05/13), 63889 (05/12) EKG: sinus tachycardia. Otherwise normal ECG, no previous ECGs available Current Facility-Administered Medications: acetaminophen (TYLENOL) tablet 650 mg, 650 mg, Oral, Q4HPRN benzocaine-menthol (CEPACOL SORE THROAT) lozenge 1 lozenge, 1 lozenge, Oral, Q2H PRN LORazepam (ATIVAN) tablet 1 mg, 1 mg, Oral, Q1H PRN OR LORazepam (ATIVAN) injection 1 mg, 1 mg,Intravenous, Q1H PRN OR LORazepam (ATIVAN) tablet 2 mg, 2 mg, Oral, Q1H PRN OR LORazepam (ATIVAN) injection 2 mg, 2 mg, Intravenous, Q1H PRN OR LORazepam (ATIVAN) tablet 3 mg, 3 mg, Oral,Q1H PRN OR LORazepam (ATIVAN) injection 3 mg, 3 mg, Intravenous, Q1H PRN OR LORazepam (ATIVAN) tablet 4 mg, 4 mg, Oral, Q1H PRN OR LORazepam (ATIVAN) injection 4 mg, 4 mg, Intravenous, Q1H PRN benzocaine-menthol (CEPACOL SORE THROAT) lozenge 1 lozenge, 1 lozenge, Oral, Q2H PRN folic acid 1 mg, thiamine (B-1) 100 mg in dextrose 5 % 50 mL IVPB, 1 mg, Intravenous, Daily sodium chloride flush 0.9 % injection 10 mL, 10 mL, Intravenous, 2 times per day sodium chloride flush 0.9 % injection 10 mL, 10 mL, Intravenous, PRN magnesium hydroxide (MILK OF MAGNESIA) 400 MG/5ML suspension 30 mL, 30 mL, Oral, Daily PRN ondansetron (ZOFRAN) injection 4 mg, 4 mg, Intravenous, Q6H PRN enoxaparin (LOVENOX) injection 40 mg, 40 mg, Subcutaneous, Daily chlorhexidine (PERIDEX) 0.12 % solution 15 mL, 15 mL, Mouth/Throat, BID famotidine (PEPCID) injection 20 mg, 20 mg, Intravenous, BID propofol injection, 10 mcg/kg/min, Intravenous, Titrated clindamycin (CLEOCIN) 600 mg in dextrose 5 % 50 mL IVPB, 600 mg, Intravenous, Q8H ASSESSMENT AND PLAN 39 yo male with alcohol abuse and dependence, anxiety, depression, ADHD, and HTN who was found unresponsive. Neuro is consulted for possible R sided weakness. Patient is neurologically intact and nonfocal at this time. Will continue with MRI Continue Librium for Alcohol withdrawal Associated attestation - Heath Pastrana DO - 05/14/2019 4:21 PM EDT Attending Physician Statement: I have discussed the case of Kandice Polanco, including pertinent history and exam findings with the medical student. I have seen and examined the patient and the jones elements of the encounter have been performed by me. I have reviewed medications, clinical laboratory, imaging and other diagnostic tests with the medical student. I agree with the assessment, plan and orders as documented by the medical student with changes made to the note as needed. Please see attested resident progress note dated 05/14. Heath Pastrana DO 05/14/2019 4:21 PM * Rubia Reyna RN - 05/14/2019 8:06 AM EDT Patient transferred to [facility] via wheelchair @0805. Patient stable and alert and orient x4. Sitter remains at bedside. Patient orient to room. * Pepe Dykes MD - 05/14/2019 5:11 AM EDT Critical care team - Resident sign-out to medicine service Date and time: 05/14/2019 5:12 AM Patient's name: Kandice Polanco Patient's account/billing number: [id number] Patient's Date of : 1980 Age: 39 y.o. Date of Admission: 05/12/2019 4:02 PM Length of stay during current admission: 2 Primary Care Physician: Shakeel Kaye Code Status: Full Code Mode of physician to physician communication: [x] Via telephone [] In person Date and time of sign-out: 05/14/2019 5:12 AM Accepting Internal Medicine resident: N/A Accepting Medicine team: Intermed Accepting team's attending: Kenna Patient's current ICU Bed: 106 Patient's assigned bed on floor: 4B [] Med-Surg Monitored [x] Step-down [] Psychiatry ICU [] Psych floor Reason for ICU admission: Acute alcohol withdrawal ICU course summary: Pt admitted to ICU for AMS, alcohol withdrawal & was intubated for airway protection. Pt transferred from outlying facility. UDS + for amphetamines & TCA. Pt stable from respiratory standpoint & was extubated the day after ICU transfer. Possible aspiration PNA, treated with antibiotics & fluids. Pt found unresponsive at home w last known well at 140AM. Also concern for suicidal ideation per girlfriend. No positive imaging results. Pt otherwise stable hemodynamically. Evidence ofchronic liver disease on labs. Pt placed on CIWA for mild withdrawal. Procedures during patient's ICU stay: n/a Current Vitals: BP (!) 148/93 Pulse 72 Temp 98.4 F (36.9 C) (Oral) Resp 13 Ht 6' (1.829 m) Wt 229 lb 15 oz (104.3 kg) SpO2 95% BMI 31.19 kg/m Cultures: Blood cultures: [] None drawn [x] Negative [] Positive (Details: ) Urine Culture: [] None drawn [x] Negative [] Positive (Details: ) Sputum Culture: [] None drawn [x] Negative [] Positive (Details: ) Endotracheal aspirate: [] None drawn [x] Negative [] Positive (Details: ) Consults: 1. neurology Assessment: Patient Active Problem List Diagnosis Date Noted Toxic metabolic encephalopathy Right sided weakness Sepsis (HCC) 05/12/2019 Aspiration pneumonia (HCC) 05/12/2019 Altered mental state 05/12/2019 Non-traumatic rhabdomyolysis 05/12/2019 Acute respiratory failure (HCC) 05/12/2019 Alcohol abuse 05/12/2019 Additional assessment: 1. Polysubstance abuse 2. Metabolic encephalopathy secondary to sepsis 3. Seizure hx 4. Aspiration PNA 5. Suicidal ideation Recommended Follow-up: 1. Neurology 2. CIWA 3. Pneumonia & abx 4. Psychiatry Above mentioned assessment and plan was discussed by me with the admitting medicine resident. The medicine team assigned to the patient by medicine admitting resident will be following up the patientfrom now onwards on the floor. Pepe Dykes MD Emergency Medicine Resident Critical Care Service [facility] 05/14/2019, 5:12 AM * Stormy Chew RN - 05/13/2019 5:20 PM EDT Per neuro, okay to remove aspen collar. Removed and patient has no pain or discomfort in neck or back. * Stormy Chew RN - 05/13/2019 2:26 PM EDT Paged primary team to make aware pt is becoming more anxious. Pt keeps asking about librium since neuro team made their rounds this AM. He is focused on not having withdrawal from ETOH abuse. Awaiting call back or a bedside visit. Continuing to monitor pt. * Stormy Chew RN - 05/13/2019 12:59 PM EDT Pt c/o pain in R hip. No bruising or redness. Painful to touch. Pt states pain is 5/10. Made primary team aware. * Stormy Chew RN - 05/13/2019 12:53 PM EDT Pt's parents brought in patients home meds. When looking over meds, pt does not take his medications as prescribed. Seroquel had 48 pills left in the bottle and was a 90 day supply that was filled on03/20/19. Pt states he took a handful before going to bed. There is no way to really know the actual amount he took by counting pills and the way he has been taking them. * Stormy Chew RN - 05/13/2019 12:31 PM EDT Paged trauma team to see if they could come and clear pt's c spine so that his aspen collar can be removed. Awaiting call back. * Leanne Greenfield RCP - 05/13/2019 11:15 AM EDT Order obtained for extubation. SpO2 of 99 on 30% FiO2. Patient extubated and placed on 3 liters/min via nasal cannula. Post extubation SpO2 is 97% with HR 90bpm and RR 20 breaths/min. Patient had strong cough that was productive of dukes sputum. Extubation Well tolerated by patient.. Breath Sounds: Coarse negative for Stridor Leanne Greenfield 1115 * Oksana Taylor RCP - 05/13/2019 8:17 AM EDT Smoking Cessation - topics covered [] Health Risks [] Benefits of Quitting [] Smoking Cessation [x] Patient has no history of tobacco use [] Patient is former smoker. [x] No need for tobacco cessation education. [] Booklet given [] Patient verbalizes understanding. [] Patient denies need for tobacco cessation education. [] Unable to meet with patient today. Will follow up as able. OKSANA TAYLOR 8:17 AM * Katrina Joe MD - 05/13/2019 7:22 AM EDT Critical Care Team - Daily Progress Note Date and time: 05/13/2019 7:23 AM Patient's name: Kandice Polanco Patient's account/billing number: [id number] Patient's Date of : 1980 Age: 39 y.o. Date of Admission: 05/12/2019 4:02 PM Length of stay during current admission: 1 Primary Care Physician: Shakeel Kaye ICU Attending Physician: Code Status: Full Code Reason for ICU admission: AMS, intubated SUBJECTIVE: OVERNIGHT EVENTS: Seen and evaluated at bedside. No acute events overnight. Pt went for CT cervicalwhich was negative. Did not go for MRI. Sedation with propofol, does follow commands. Does appear to have improved strength on the right side compared to exam on admission. AWAKE & FOLLOWING COMMANDS: [] No [x] Yes CURRENT VENTILATION STATUS: [x] Ventilator [] BIPAP [] Nasal Cannula [] Room Air IF INTUBATED, ET TUBE MARKING AT LOWER LIP: cms SECRETIONS Amount: [] Small [] Moderate [] Large [x] None Color: [] White [] Colored [] Bloody SEDATION: RAAS Score: [x] Propofol gtt [] Versed gtt [] Ativan gtt [] No Sedation PARALYZED: [x] No [] Yes DIARRHEA: [x] No [] Yes (C. Difficile status: [] positive [] negative [] pending) VASOPRESSORS: [x] No [] Yes If yes - [] Levophed [] Dopamine [] Vasopressin [] Dobutamine [] Phenylephrine [] Epinephrine CENTRAL LINES: [x] No [] Yes (Date of Insertion: ) If yes - [] Right IJ [] Left IJ [] Right Femoral [] Left Femoral [] Right Subclavian [] Left Subclavian SEGOVIA'S CATHETER: [] No [x] Yes (Date of Insertion: 05/12/2019) URINE OUTPUT: [x] Good [] Low [] Anuric OBJECTIVE: VITAL SIGNS: BP 127/82 Pulse 91 Temp 98.6 F (37 C) (Oral) Resp 19 Ht 6' (1.829 m) Wt 229 lb 15 oz (104.3 kg) SpO2 96% BMI 31.19 kg/m Tmax over 24 hours: Temp (24hrs), Av.3 F (37.4 C), Min:98.6 F (37 C), Max:99.9 F (37.7 C) Patient Vitals for the past 6 hrs: BP Temp Temp src Pulse Resp SpO2 Weight 05/13/19 0700 127/82 91 19 96 % 05/13/19 0645 127/85 92 20 95 % 05/13/19 0600 133/87 94 21 95 % 229 lb 15 oz (104.3 kg) 05/13/19 0506 22 97 % 05/13/19 0500 (!) 123/94 99 21 97 % 05/13/19 0400 137/84 98.6 F (37 C) Oral 101 22 96 % 05/13/19 0330 103 21 96 % 05/13/19 0200 127/76 106 22 97 % Intake/Output Summary (Last 24 hours) at 05/13/2019 0723 Last data filed at 05/13/2019 0600 Gross per 24 hour Intake 1530 ml Output 1490 ml Net 40 ml Wt Readings from Last 2 Encounters: 05/13/19 229 lb 15 oz (104.3 kg) Body mass index is 31.19 kg/m . PHYSICAL EXAMINATION: Constitutional: Intubated, on sedation, moving all extremities equally, does follow commands EENT: PERRLA, EOMI, sclera clear, anicteric, oropharynx clear, no lesions, neck supple with midlinetrachea, c-collar in place Neck: Supple, symmetrical, trachea midline, no adenopathy, thyroid symmetric, no jvd skin normal Respiratory: clear to auscultation, no wheezes or rales and unlabored breathing. No intercostal tenderness Cardiovascular: Tachycardic but regular rhythm, normal S1, S2, no murmur noted and 2+ pulses throughout Abdomen: soft, nontender, nondistended, no masses or organomegaly Neurological: Intubated, on sedation, moving all extremities equally, following commands Extremities: peripheral pulses normal, no pedal edema, no clubbing or cyanosis Any additional physical findings: MEDICATIONS: Scheduled Meds: folic acid IVPB 1 mg Intravenous Daily sodium chloride flush 10 mL Intravenous 2 times per day enoxaparin 40 mg Subcutaneous Daily chlorhexidine 15 mL Mouth/Throat BID famotidine (PEPCID) injection 20 mg Intravenous BID clindamycin (CLEOCIN) IV 600 mg Intravenous Q8H Continuous Infusions: sodium chloride 125 mL/hr at 05/13/19 0504 propofol 50 mcg/kg/min (05/13/19 0657) PRN Meds: sodium chloride flush 10 mL PRN magnesium hydroxide 30 mL Daily PRN ondansetron 4 mg Q6H PRN VENT SETTINGS (Comprehensive) (if applicable): Vent Information $Ventilation: $Initial Day Ventilator Started: Yes Skin Assessment: Clean, dry, & intact Equipment ID: [id number] Equipment Changed: HME Vent Type: Servo i Vent Mode: PRVC Vt Ordered: 620 mL Rate Set: 16 bmp FiO2 : 30 % Sensitivity: 2 PEEP/CPAP: 5 I Time/ I Time %: 0.9 s Humidification Source: HME Additional Respiratory Assessments Pulse: 91 Resp: 19 SpO2: 96 % End Tidal CO2: 31 (%) Humidification Source: HME Oral Care Completed?: Yes Oral Care: Mouth swabbed, Mouth suctioned Subglottic Suction Done?: Yes ABGs: Laboratory findings: Complete Blood Count: Recent Labs 05/12/19182405/13/19 0401 WBC 16.5* 16.8* HGB 15.4 14.1 HCT 46.0 42.6 PLT 235 214 Last 3 Blood Glucose: Recent Labs 05/12/19182405/13/19 0401 GLUCOSE 90 134* PT/INR: Lab Results Component Value Date PROTIME 10.5 05/12/2019 INR 1.0 05/12/2019 PTT: Lab Results Component Value Date APTT 23.8 05/12/2019 Comprehensive Metabolic Profile: Recent Labs 05/12/19182405/13/19 0401 NA 141 139 K 4.6 4.3 CL 103 104 CO2 23 22 BUN 17 15 CREATININE 1.13 1.02 GLUCOSE 90 134* CALCIUM 8.3* 7.9* PROT 6.9 6.2* LABALBU 3.8 3.3* BILITOT 0.77 0.62 ALKPHOS 81 70 AST 121* 89* ALT 61* 52* Magnesium: Lab Results Component Value Date MG 1.6 05/12/2019 Phosphorus: No results found for: PHOS Ionized Calcium: Lab Results Component Value Date CAION 1.06 05/12/2019 Urinalysis: Troponin: No results for input(s): TROPONINI in the last 72 hours. Microbiology: Cultures during this admission: Blood cultures: [] None drawn [x] Negative [] Positive (Details: ) Urine Culture: [] None drawn [x] Negative [] Positive (Details: ) Sputum Culture: [] None drawn [] Negative [x] Positive (Details: Moderate gram- positive cocci in pairs, rare gram-negative rods) Endotracheal aspirate: [] None drawn [] Negative [] Positive (Details: ) Other pertinent Labs: Radiology/Imaging: Chest Xray (05/13/2019): No new chest x-ray this morning, chest x-ray of 05/12 showed patchy perihilar vascular crowding, atelectasis ASSESSMENT: Patient Active Problem List Diagnosis Date Noted Sepsis ([facility]) 05/12/2019 Aspiration pneumonia ([facility]) 05/12/2019 Altered mental state 05/12/2019 Non-traumatic rhabdomyolysis 05/12/2019 Acute respiratory failure ([facility]) 05/12/2019 Alcohol abuse 05/12/2019 PLAN: Plan: Neuro: Encephalopathy due to - alcohol intoxication / anoxic ? Tox screen + for amphetamines and TCA Toxic TCA blood test negative ? Loaded w/ keppra at OSH - No hx seizures ? Family to go home and get patient medications/bottles Call poison control - recommend symptomatic control, possibly clinical picture of trazadone or seroquel overdose Family has not returned or called with medication ? RUE/RLE weakness - MRI brain today Improved this am ? CT head negative at OSH, c-collar in place - CT cervical negative ? Neurology consult - Agree with MRI, EEG, trend CK ? Alcohol 118 at OSH Hx alcohol abuse Monitor for withdrawal Continue thiamine/folic acid Resp: Hx EMILY does noot use CPAP Acute hypoxic respiratory failure due to questionable overdose and aspiration pneumonia ? Planned for Unasyn - family states allergy w/ hives ? Continue Clindamycin 600mg IV q8hrs ? F/u sputum cx - moderate gram positive cocci in pairs, rare gram negative rods ? Wean trial and possible extubation today Vent settings Vent Information $Ventilation: $Initial Day Ventilator Started: Yes Skin Assessment: Clean, dry, & intact Equipment ID: [id number] Vent Type: Servo i Vent Mode: PRVC Vt Ordered: 620 mL Rate Set: 16 bmp FiO2 : 40 % Sensitivity: 2 PEEP/CPAP: 5 I Time/ I Time %: 0.9 s Humidification Source: HME CV: Hemodynamically stable Lactic acid 2.5 -> 1.9 GI/Nutrition: NPO Pepcid BID /Fluids/Electrolytes: CK/myoglobin elevated 83925/1739 -> 6913/605 UA negative for infection, moderate hgb and few RBCs consistent w/ rhabdomyolysis Normal saline at 125cc/hr Strict I/O Cr. 1.02, BUN 15 UOP adequate Heme: Hgb stable No evidence of bleeding ID: Clindamycin 600mg IV Q8hrs for aspiration pneumonia - allergy to penicillins Afebrile WBC stable F/u blood and sputum cx, UA negative Endo: No hx DM Glucose 90 Continue to monitor MSK: No evidence of trauma Skin: No cellulitis/rash Prophylaxis: DVT: Lovenox GI: Pepcid Dispo: Remain in ICU Neda Edmond DO Critical care resident, Department of Internal Medicine/ Critical care [facility], [facility]) 05/13/2019, 7:23 AM Attending Physician Statement I have discussed the care of Kandice Polanco, including pertinent history and exam findings with the resident. I have reviewed the jones elements of all parts of the encounter with the resident. I have seen and examined the patient with the resident. I agree with the assessment and plan and status of the problem list as documented. I seen the patient during my round today, I have reviewed the imaging studies, lab seen and medications reviewed, ventilator setting seen and arterial blood gas is seen. He started waking up much more this morning when I saw him he move all the extremities he was on low-dose propofol at that time, endotracheal secretions were reported to be large but he has good cough. Initial CT head was negative EEG and MRI brain was ordered and was seen by neurology. Altered mental status likely secondary to alcohol along with unknown possible drug overdose. Chest x-ray shows no infiltrate but endotracheal tube was high. Urine output is good renal function is normal. He is currently not on antiepileptic drugs. AST ALT is improving has mild elevation initially. Urine output is 1.4 L. Because of concern for aspiration he is on clindamycin. His CK is elevated but improving [place] [address] to 6913 today Start spontaneous breathing trial and on CPAP/PS 5/5/30%, TV > 700 Will extubate. After extubation we will get trauma to clear cervical spine. Monitor and watch for seizure. Continue with thiamine and folate. Avoid sedation. Continue with clindamycin. EEG and MRI brain. We will continue to follow CK tomorrow. Tinea with IV fluids. Discussed with nursing staff, treatment plan discussed. Discussed with respiratory therapist Total critical care time caring for this patient with life threatening, unstable organ failure, including direct patient contact, management of life support systems, review of data including imaging and labs, discussions with other team members and physicians at least 30 Min so far today, excludingprocedures. Please note that this chart was generated using voice recognition [employer]on dictation software. Although every effort was made to ensure the accuracy of this automated licensing registration examiner, some errors in licensing registration examiner may have occurred. Katrina Joe MD 05/13/2019 10:09 AM * Neda Edmond, - 05/13/2019 3:38 AM EDT Spoke with poison control. They states symptoms/labs consistent with possible trazodone or Seroqueloverdose. Recommend symptomatic treatment at this time and trend CK/Myoglobin. Neda Edmond Emergency Medicine Resident PGY-2 05/13/2019 3:39AM * Florencio Deleon RCP - 05/13/2019 3:32 AM EDT The transport originated from [facility]. Pt. was transported to CT and back. Assisting with the transportwas LOAN OFFICER,RN. Appropriate devices were applied to monitor the patient's condition during transport. Patient transported via 30% O2 via ventilator. Patient tolerated well. FLORENCIO DELEON 3:33 AM * Kandice Sherwood RN - 05/13/2019 1:[address] and MRI attempted, not able to complete due to being told not enough staff from respiratory to be able to go. Also told from propellant charge zone assembler to not leave unit at this time. * Cristine Manley RCP - 05/12/2019 7:03 PM EDT ET tube advanced 2 cm to [address] Edmond. * Stormy Chew RN - 05/12/2019 4:40 PM EDT Pt arrived via life flight, resp care called to hook pt up to vent. Pt has c collar applied. Propofol gtt at 30 mcg/kg and LR at 25 ml/hr. VS obtained, assessment performed and primary team notified of arrival. Monitoring pt closely. * Cristine Manley RCP - 05/12/2019 4:12 PM EDT Patient received via Life Flight intubated with #7.0 @ 23 cm gavin. documented in this encounter Advance Directives No Advanced Directives Records FoundDocuments on File Type Date Recorded Patient Color Grinder Expl anation Advance Directives and Living Will Power of Gravure Press Set Up Operator Latest Code Status on File Code Status Date Activated Date Inactivated Comments Full Code 05/12/2019 5:05 PM Latest Code Status on File Code Status Date Activated Date Inactivated Comments Full Code 05/15/2019 8:21 PM Full Code 05/15/2019 7:51 PM 05/15/2019 8:21 PM Full Code 05/12/2019 5:05 PM 05/15/2019 7:30 PM Advance Directive Response Recorded Date/ Time Advance Directives No September 29, 2018 4:03pm Advance Directive Response Recorded Date/ Time Advance Directives No September 29, 2018 3:03pm Documents on File Type Date Recorded Patient Color Grinder Expl anation ACP-Do Not Resuscitate 11/21/2023 1:38 PM Latest Code Status on File Code Status Date Activated Date Inactivated Comments Full Code 11/16/2023 2:29 PM 11/20/2023 3:51 PM Code Status History Code Status Date Activated Date Inactivated Comments DNR-CCA 11/03/2023 11:39 AM 11/16/2023 2:29 PM Full Code 10/03/2023 11:28 PM 11/03/2023 11:39 AM Full Code 05/15/2019 8:21 PM 05/18/2019 8:34 PM Full Code 05/15/2019 7:51 PM 05/15/2019 8:21 PM Summary Purpose Family History No Family History Records Found Relationship Condition Age at Onset Recorded Date/T james Not Specified Hypertension Unknown father Hypertension Unknown grandparent Diabetes mellitus Unknown Cerebrovascular accident (CVA) Unknown Malignant neoplasm of colon Unknown grandparent Cerebrovascular accident (CVA) Unknown Chief Complaint and Reason for Visit Chief Complaint S62.232A Chief Complaint S62.232A S62.232A Chief Complaint S62.232A Fatty Liver, Elevated Liver Enzymes Chief Complaint Screening SI Chief Complaint SI si Reason for Visit Alcohol dependence, uncomplicated Major depressive disorder, recurrent, moderate Alcohol dependence, uncomplicated Alcohol use disorder Major depressive disorder, recurrent, moderate Additional Source Comments Reason for Visit (unrecogniz ed section and content) Status Reason Specialty Diagnoses / Procedures Referre d By Contact Referred To Contact Diagnoses Sepsis (HCC) sepsis due to aspiration pneumonitis Katrina Joe MD [address] [address] [facility] Reason Comments Annual Exam (unrecognized sect ion and content) No Status Records FoundNo Status Records FoundNo Status Records FoundNo Status Records FoundNo Status Records FoundNo Status Records FoundNo Status Records FoundNo Status Records FoundNo Status Records FoundNo Status Records Found INFORMATION SOURCE (unrecogn ized section and content) DATE CREATED AUTHOR 04/06/2022 [facility] DATE CREATED AUTHOR AUTHOR'S ORGANIZ ATION 04/25/2022 [facility] DATE CREATED AUTHOR AUTHOR'S ORGANIZ ATION 04/02/2023 [facility] DATE CREATED AUTHOR AUTHOR'S ORGANIZ ATION 2023 [facility] DATE CREATED AUTHOR AUTHOR'S ORGANIZ ATION 09/07/2023 [facility] DATE CREATED AUTHOR AUTHOR'S ORGANIZ ATION 10/11/2023 [facility] DATE CREATED AUTHOR AUTHOR'S ORGANIZ ATION 11/24/[address] [facility] DATE CREATED AUTHOR AUTHOR'S ORGANIZ ATION 12/09/2023 [facility] DATE CREATED AUTHOR AUTHOR'S ORGANIZ ATION 02/06/2024 [facility] DATE CREATED AUTHOR AUTHOR'S ORGANIZ ATION 02/22/2024 [facility] Care Teams (unrecognized sec tion and content) Team Status: Inactive Member Role Status Dates Lee Mtz DO Primary Care Provider Active Elizabeth Dempsey MD Attending Provider Active Team Status: Active Member Role Status Dates Lee Mtz DO Primary Care Provider Active Team Status: Inactive Member Role Status Dates Jonathan Workman MD Attending Provider Active Shakeel Kaye DO Primary Care Provider Active Team Status: Active Member Role Status Dates Shakeel Kaye DO Primary Care Provider Active Team Status: Inactive Member Role Status Dates Shakeel Kaye DO Primary Care Provider Active Jonathan Workman MD Attending Provider Active Team Status: Active Member Role Status Dates Shakeel Kaye DO Primary Care Provider Active Mervin Palencia , DO Emergency Provider Active Tomasz Lucas MD RES Active William Vann MD Admit Provider, Attending Ashly arenas Active Team Status: Inactive Member Role Status Dates Shakeel Kaye , DO Primary Care Provider Active Mervin Palencia , DO Emergency Provider Active Tomasz Lucas MD RES Active Dwain Vann MD Admit Provider, Attending Tonya dumont Active Team Status: Inactive Member Role Status Dates Shakeel Kaye , DO Primary Care Provider Active Guillermina Torres PA-C Emergency Provider Active Bradford Fajardo MD Admit Provider, Attending Provider Active Communications Attendant Relationship Specialty Start Date End Date Shakeel Kaye DO [address] [place] [address] PCP - General Family Medicine 05/14/23 Communications Attendant Relationship Specialty Start Date End Date Shakeel Kaye DO [address], [place] [address] PCP - General Family Medicine 05/14/23 Communications Attendant Relationship Specialty Start Date End Date Shakeel Kaye PCP - General Family Medicine 05/11/19 Goals (unrecognized section and content) Goals from 05/02/2023 10:29 AM:Goal for Diet : Maintain Balanced Diet,Maintain Healthy Body WeightGoal for Mobility : Maintain active lifestyle as toleratedGoal for Substance Abuse : Alcohol Cessation Patient Stated Goals from 05/02/2023 10:29 AM:Patient's Personal Life Style and [facility] Goals may be documented in an alternate section FOR RECORDS PERTAINING TO PATIENTS WHO ARE OR HAVE BEEN ENROLLED IN A CHEMICAL DEPENDENCY/SUBSTANCEABUSE PROGRAM, SOME INFORMATION MAY BE OMITTED. This clinical summary was aggregated from multiple sources. Caution should be exercised in using it in the provision of clinical care. This summary normalizes information from multiple sources, and as a consequence, information in this document may materially change the coding, format and clinical context of patient data. In addition, data may be omitted in some cases. CLINICAL DECISIONS SHOULD BE BASED ON THE PRIMARY CLINICAL RECORDS. [facility]. provides no warranty or guarantee of the accuracy or completeness of information in this document.
--- NOTE | 2024-03-06 07:30 | CA_ITS ---
Patient Name: KANDICE POLANCO MR#: [id number] : 1980 Exam Date: 03/06/2024 Ordering Doctor: Geovanna Ricci ECHOCARDIOGRAM REPORT PROCEDURE: CA ECHO LIMITED INDICATIONS: Pericardial tamponade, hypertension COMPARISON: None. DESCRIPTION: Limited ECHOCARDIOGRAM Real-time transthoracic echocardiography with 2D and M-mode performed. QUALITY: Technical quality was good. Limited echocardiogram per physician order. LEFT VENTRICLE: Normal chamber size. Mild concentric left ventricular hypertrophy. LV EF: Normal left ventricular ejection fraction, (55-60%). DIASTOLIC: ATRIAL SEPTUM: LEFT ATRIUM: Mild dilatation. RIGHT ATRIUM: Mild dilatation. RIGHT VENTRICLE: Normal chamber size. Normal systolic function. TRICUSPID VALVE: Normal mobility and thickness. MITRAL VALVE: Normal mobility and thickness. There is no mitral annular calcification. AORTIC VALVE: Normal trileaflet appearance. No visible sclerosis. Normal leaflet mobility. AORTIC ROOT: Normal diameter and appearance, measuring 3.4 cm. Ascending aorta is normal in size measuring 3.5 cm. PULMONIC VALVE: Normal thickness and mobility. PERICARDIUM: No evidence of pericardial effusion. IVC: IVC is normal in size, does not collapse. PLEURA: CONCLUSION: 1. Mild concentric left ventricular hypertrophy with normal systolic function. LVEF is 55 to 60%. 2. Normal right ventricular size and systolic function. 3. Mild biatrial dilatation. 4. No pericardial effusion. Adult Echocardiography Procedure Report Left Ventricle LVEDD (3.7 - 5.6 cm): 5.12 cm LVESD (2.2 - 4.0 cm): 3.49 cm LVIVS thickness (0.6 - 1.2 cm): 1.25 cm LVPW thickness (0.5 - 1.0 cm): 1.13 cm LVOT Diameter 3.12 cm Left Atrium LA Volume Index (2D A2C): 35.40 ml/m2 Left Atrium Systolic Dimension: 3.08 cm Mitral Valve Right Ventricle Aorta AO Root Diam: 3.42 cm Ascending Ao Diam: 3.45 cm Aortic Valve Tricuspid Valve Pulmonic Valve Right Atrium Right Atrium Systolic Pressure: 71.28 ml, 71.28 ml Dictated by: Jonny Alvarado M.D. on 03/06/2024 at 20:13 Approved by: Jonny Alvarado M.D. on 03/06/2024 at 20:15
== END 2024-03-06 07:11 | disposition home or self-care (01) ==
LOC: CARD 07:11
PROVIDERS: PCP Family Medicine; Visit Provider Internal Medicine Cardiovascular Disease
DX: I21.4 Non-ST elevation (NSTEMI) myocardial infarction (principal); I31.4 Cardiac tamponade; I48.91 Unspecified atrial fibrillation; I51.7 Cardiomegaly
CPT/HCPCS: 36415; 78452; 80048; 80061; 84450; 84460; 93308; A9500

== ENCOUNTER 2024-03-06 08:05 | Outpatient (OUT) | payer OTHER, SELFPAY ==
--- OUTSIDE RECORDS SUMMARY | 2024-03-06 08:16 | XMS_ITS | CCD ---
Author Organization [facility] Care Team Providers Care Enterprise Project Manager Name Role Phone Shakeel Kaye Primary Care Provider [phone] MISC, DR NAIDU Attending Unavailable FURLONG, DR SHAKEEL Hernandez Primary Care Unavailable MISC, DR NAIDU Consulting Unavailable MISC, DR NAIDU Admitting Unavailable MISC, DR NAIDU Attending Unavailable MISC, DR NAIDU Consulting Unavailable [...] Provider DO Lee Mtz Primary Care Provider MD Elizabeth Dempsey Attending Provider MD Jonathan Workman Attending Provider [phone] DO Shakeel Kaye Primary Care Provider [phone] Jonathan Workman Unavailable DO Shakeel Kaye Primary Care Provider MD Jonathan Workman Attending Provider DO Mervin Palencia Emergency Provider MD William Vann Admit Provider [phone] MD William Vann Attending Provider JIMENEZ GASPAR Admitting Unavailable MAGDALENE GILLILAND Consulting Unavailable FURLONG, SHAKEEL GARETH Primary Care Unavailab FLORENCIO Chavarria Attending Unavailable NOREEN REYES Admitting Unavailable FURLONG, SHAKEEL SERVIN Primary Care Unavailab DEWEY Clifford Attending Unavailable PCP, Other Primary Care Physician Furlong, DO Shakeel Primary Care Provider MD Dwain Vann Admit Provider MD Dwain Vann Attending Provider [phone] MIRI Torres Emergency Provider MD Juan Fajardomi Admit Provider MD Bradford Fajardo Attending Provider Unavailable Primary Care Provider Unavailabl e Furlong DO, Shakeel G Primary Care Provider [phone] BRYANJOSEPHNG, SHAKEEL G Referring Unavailable FURLONG, SHAKEEL G Primary Care Unavailable Soo, Dwain Admitting Unavailab le SooAdeDwain Attending Unavailab le Furlong, Shakeel Primary Care Unavailable Soo, Dwain Admitting Unavailab le Soo, Dwain Attending Unavailab le Furlong, Shakeel Primary Care Unavailable Bradford Fajardo Admitting Unavailable SooDwain Attending Unavailab le Furlong, Shakeel Primary Care Unavailable Jonathan Workman Admitting Unavailable Jonathan Workman Attending Unavailable Furlong, Shakeel Primary Care Unavailable MANDI, JULI Admitting Unavailable LUCA, SHANNON Referring Unavailable FURLONG, SHAKEEL G Primary Care Unavailable ORION ABRAHAM Consulting Unavailable KATRINA JOE Attending Unavailable GUILLERMINA HARRIS Consulting Unavailable TALCHIARA CARTER Consulting Unavailable MANUELA HAM Consulting Unavailable NI VILLEGAS Consulting Unavailable ALI, DANTE MICHEL Consulting Unavailable NILS SESAY Consulting Unavailable CLIFFORD TOURE Consulting Unavailable MACKENZIE AGUDELO Consulting Unavailable GEORGE BLUE Attending Unavailable GEORGE BLUE Referring Unavailable SHAKEEL KAYE Primary Care Unavailable Shakeel Kaye Primary Care Provider [phone] SHAKEEL KAYE Attending Unavailable SHAKEEL KAYE G Referring Unavailable SHAKEEL KAYE Primary Care Unavailable SHAKEEL KAYE G Attending Unavailable VARGAS, SHAKEEL G Referring Unavailable AIDANNG, SHAKEEL G Primary Care Unavailable MIKA WEBB Attending Unavailable Unavailable Unavailable Unavailable Allergies Allergy Classification Reported Allergen(s) Allergy Type Date of Onset Reaction(s) Facility (19 sources) Penicillins; Translations: [Penicillins] Propensity to adverse reactions 12-19-19 17 [place], [place] (8 sources) Sulfamethoxazole; Translations: [sulfamethoxazole] Drug Allergy 09-29-19 19 Unknown Reaction [facility] (14 sources) Trimethoprim; Translations: [TRIMETHOPRIM] Drug Allergy 09-29-19 19 Unknown Reaction [place], [place] (9 sources) erythromycin base; Translations: [Erythromycin Base] Propensity to adverse reactions 12-19-19 17 Itching [facility] (19 sources) Codeine; Translations: [CODEINE] Drug Allergy 05-20-20 18 Abdominal Pain [place], [place] (14 sources) Sulfamethoxazole / Trimethoprim; Translations: [SULFAMETHOXAZOLE-T RIMETHOPRIM] Drug Allergy 05-20-20 18 Unknown [place], [place] (2 sources) Sulfonamides (Antibiotic) Propensity to adverse reactions to drug 05-20-20 18 [place] (13 sources) Erythromycin; Translations: [ERYTHROMYCIN] Drug Allergy 12-19-19 17 Unknown [place], [place] (1 source) Codeine Drug Allergy 12-19-19 17 [facility] (1 source) Sulfamethoxazole / Trimethoprim Drug Allergy 12-19-19 17 [facility] (2 sources) penicillAMINE Drug Allergy Unknown [place] [facility] Other (2 sources) Penicillin Drug Allergy Unknown [employer] Other (2 sources) Penicillin V; Translations: [[facility]ENICILLIN V] [facility] [place] [facility] Sulfamethoxazole / Trimethoprim; Translations: [Bactrim] Drug Allergy Abdominal Pain [place] (6 sources) Sulfonamides (Antibiotic); Translations: [SULFA (SULFONAMIDE ANTIBIOTICS)] Propensity to adverse reactions to drug 05-20-20 [facility] (1 source) Codeine Drug Allergy 06-07-20 [facility] Rep[facility] (1 source) Botulinum Toxin Type A; Translations: [ONABOTULINUMTOXINA ] Drug Allergy 12-11-19 [facility] Rep[facility] NEGATED: Highlighted row has been ruled out! (2 sources) natural latex rubber; Translations: [LATEX, NATURAL RUBBER] Drug allergy (disorder) [place] NEGATED: Highlighted row has been ruled out! (2 sources) No IV Contrast Allergy.; Translations: [IV Dye, Iodine Containing] Drug allergy (disorder) [place] Medications Current Medications Medication Drug Class(es) Dates Sig (Normalized) Sig (Original) acetaminophen 325 mg oral tablet (1 source) Start: 9 acetaminophen (TYLENOL) tablet 650 mg Acetaminophen / HYDROcodone (1 source) Opioid Agonist Start: 2 take 1-2 tablets by mouth every four to six hours as needed [place] 5-325 MG 1-2 tablet as needed Orally [...] tablet by mouth every twenty-four hours Olmesartan-amLODI Sheridan-HCTZ 40-5-12.5 MG 1 tablet Orally Once a [...] Start: 08-24-2023 take 1 capsule by mo uth in the morning FLUoxetine (PROzac) 20 mg [...] Fluoxetine Active 20 MG PO Every morning June 11, 2023 12:00am folic acid 1 mg oral tablet (14 sources) Start: 11-20-2023 take 1 tablet by mouth once daily folic acid (FOLVITE) 1 MG tablet Take 1 tablet by mouth daily 30 tablet 3 11/20/2023 Active Start: 06-12-2023 take 1 mg by mouth once daily Folic Acid Active 1 MG PO Daily June 12, 2023 12:00am Start: 05-15-2019 End: [...] Start: 08-15-2023 take 1 capsule by mo [facility] three times daily gabapentin (NEURONTIN) 100 mg [...] 2023 1:14am take 2 capsules by m [facility] three times daily gabapentin (NEURONTIN) 300 mg capsule Take 2 capsules (600 mg total) by mouth 3 (three) times a day. 0 Active take 1 capsule by mo [facility] twice daily gabapentin 300 mg Capsule, Ordered By: Favian Sheppard DO Directions: 1 capsule oral twice a day hydrOXYzine pamoate 50 mg oral capsule (8 sources) Antihistamine Start: 09-17-2023 take 1 capsule by mouth three times daily hydrOXYzine pamoate (VISTARIL) 50 MG capsule Take 1 capsule by mouth 3 times daily 0 09/17/2023 Active Start: 08-16-2023 take 1 capsule by mo [facility] three times daily as needed for anxiety [...] 3 mg Tablet Extended Release, Ordered By: Favina Sheppard DO Directions: 1 tablet oral daily Multiple Vitamins-Minerals (THERAPEUTIC MULTIVITAMIN-MINERALS) tablet (1 source) Start: 11-20-2023 take 1 tablet by mouth [...] Start: 08-16-2023 take 1 tablet by yuri th once daily OLANZapine (ZyPREXA) 20 mg tablet [...] B1) Active 100 MG PO Twice daily 30 June 11, 2023 12:00am take 1 tablet [...] 29, 2018 1:00am January 24, 2023 6:59am dx-um-EK-inosi-chol ine-bioflav (Theramill Forte) 67 mcg-12.5 mg-12.5 mg-17 mg Capsule Directions: 1 capsule oral daily (2 sources) take 1 capsule by mouth once daily kn-qb-FQ-inosi-cho line-bioflav (Theramill Forte) 67 mcg-12.5 mg-12.5 mg-17 [...] 2018 1:00am January 24, 2023 6:59am vitamin R08-wvwvy acid 500 mcg-1 mg Tablet Directions: 1 tablet oral daily (2 sources) take 1 tablet by mouth once daily vitamin Y07-idynf acid 500 mcg-1 mg Tablet Directions: 1 tablet oral daily Problems Active Problems Problem Classification Problem Date [...] 10-04-2023 Episodic Other aftercare (5 sources) 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; Translations: [[employer] [place] SHUCKER CURRENT DRUG THERAPY] Onset: 12-28-2021 Episodic Other aftercare (1 source) Long-term current use of drug therapy; Translations: [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] 05-05-2023 Episodic Other circulatory [...] (2 sources) Alcoholism; Translations: [Alcohol use disorder] 10-07-2023 Episodic Respiratory failure; insufficiency; arrest (adult) (1 [...] effusion (noninflammatory)] Onset: 10-26-2023 Unclassified (1 source) alf discharge Onset: 02-05-2024 Unclassified (1 source) Annual [...] fibrosis] Unclassified (1 source) Liver fibrosis K74.00 Results Test Name Value Interpretation Reference Range Facility Office Visiton 02-21-2024 Follow-up visit [id number] Guille Polanco 1980 M Date Provider Department Center 02/21/2024 [id number] WEBB PRABHJOT [facility] Family History Problem Relation Age of Onset Hypertension Mother Diabetes Mother Hypertension Father Cancer Father Stroke Maternal Grandmother Coronary artery disease Maternal Grandfather Stroke Maternal Grandfather Family Status - Relation Status Age at Mother Father Maternal Grandmother Maternal Grandfather Level of Service:01985 NE OFFICE/OUTPATIENT ESTABLISHED MOD MDM [address] [facility] CBCon 12-13-2023 Erythrocyte distribution width (RBC) [Ratio] 16.2 % High 11.5 - 14.9 % [facility] Hematocrit (Bld) [Volume fraction] 35.4 % Low 41 - 53 % [facility] Hemoglobin (Bld) [Mass/Vol] 11.3 g/dL Low 13.5 - 17.5 g/dL [facility] Interpretation and review of laboratory results Abnormal [facility] MCH (RBC) [Entitic mass] 27.4 pg 26 - 34 pg [facility] MCHC (RBC) [Mass/Vol] 32.0 g/dL 31 - 37 g/dL [facility] MCV (RBC) [Entitic vol] 85.5 fL 80 - 100 fL [facility] Platelet mean volume (Bld) [Entitic vol] 8.3 fL 6.0 - 12.0 fL [employer] [facility] Platelets (Bld) [#/Vol] 558 10*3/uL High [employer] [facility] RBC (Bld) [#/Vol] 4.14 10*6/uL Low 4.5 - 5.9 m/uL [employer] [facility] WBC other (Bld) [#/Vol] 12.6 High [facility] CBCon 12-12-2023 Erythrocyte distribution width (RBC) [Ratio] 16.2 % High 11.5 - 14.9 % [employer] [facility] Hematocrit (Bld) [Volume fraction] 33.0 % Low 41 - 53 % [facility] Hemoglobin (Bld) [Mass/Vol] 10.7 g/dL Low 13.5 - 17.5 g/dL [facility] Interpretation and review of laboratory results Abnormal [facility] MCH (RBC) [Entitic mass] 28.0 pg 26 - 34 pg [facility] MCHC (RBC) [Mass/Vol] 32.4 g/dL 31 - 37 g/dL [facility] MCV (RBC) [Entitic vol] 86.4 fL 80 - 100 fL [facility] Platelet mean volume (Bld) [Entitic vol] 8.5 fL 6.0 - 12.0 fL [facility] Platelets (Bld) [#/Vol] 515 10*3/uL High [facility] RBC (Bld) [#/Vol] 3.83 10*6/uL Low 4.5 - 5.9 m/uL [facility] WBC other (Bld) [#/Vol] 16.3 High [facility] Comprehensive Metabolic Pane jordan 12-12-2023 Albumin [Mass/Vol] 3.3 g/dL Low 3.5 - 5.2 g/dL [facility] ALP [Catalytic activity/Vol] 145 U/L High 40 - 129 U/L [facility] ALT [Catalytic activity/Vol] 16 U/L 5 - 41 U/L [facility] Anion gap [Moles/Vol] 13 mmol/L 9 - 17 mmol/L [facility] AST [Catalytic activity/Vol] 25 U/L NINF - 40 U/L [facility] Bilirubin [Mass/Vol] 0.3 mg/dL 0.3 - 1 .2 mg/dL [facility] Calcium [Mass/Vol] 8.9 mg/dL 8.6 - 10. 4 mg/dL [facility] Chloride [Moles/Vol] 99 mmol/L 98 - 10 7 mmol/L [facility] CO2 [Moles/Vol] 26 mmol/L 20 - 31 mmol/L [facility] Creatinine [Mass/Vol] 0.8 mg/dL 0.7 - 1.2 mg/dL [facility] GFR/1.73 sq M.predicted MDRD (S/P/Bld) [Vol rate/Area] - PINF [facility] Comment on above: These results are not [...] [Mass/Vol] 84 mg/dL 70 - 99 mg/dL [facility] Interpretation and review of laboratory results Abnormal [facility] Potassium [Moles/Vol] 3.7 mmol/L 3.7 - 5.3 mmol/L [facility] Protein [Mass/Vol] 6.6 g/dL 6.4 - 8.3 g/dL [facility] Sodium [Moles/Vol] 138 mmol/L 135 - 144 mmol/L [facility] Urea nitrogen [Mass/Vol] 11 mg/dL 6 - 20 mg/dL [facility] Culture, Urineon 12-12-2023 Interpretation and review of laboratory results Abnormal [facility] Microorganism identified Cx Nom (Unsp spec) KLEBSIELLA PNEUMONIAE >100,000 CFU/ML Abnormal [facility] Specimen Description .CATHETERIZED URINE [facility] CBCon 12-11-2023 Erythrocyte distribution width (RBC) [Ratio] 16.7 % High 11.5 - 14.9 % [facility] Hematocrit (Bld) [Volume fraction] 35.2 % Low 41 - 53 % [facility] Hemoglobin (Bld) [Mass/Vol] 11.2 g/dL Low 13.5 - 17.5 g/dL [facility] Interpretation and review of laboratory results Abnormal [facility] MCH (RBC) [Entitic mass] 27.5 pg 26 - 34 pg [facility] MCHC (RBC) [Mass/Vol] 31.9 g/dL 31 - 37 g/dL [facility] MCV (RBC) [Entitic vol] 86.5 fL 80 - 100 fL [facility] Platelet mean volume (Bld) [Entitic vol] 8.1 fL 6.0 - 12.0 fL [facility] Platelets (Bld) [#/Vol] 577 10*3/uL High [facility] RBC (Bld) [#/Vol] 4.07 10*6/uL Low 4.5 - 5.9 m/uL [facility] WBC other (Bld) [#/Vol] 20.9 High [facility] CBCon 12-10-2023 Erythrocyte distribution width (RBC) [Ratio] 16.2 % High 11.5 - 14.9 % [facility] Hematocrit (Bld) [Volume fraction] 34.2 % Low 41 - 53 % [facility] Hemoglobin (Bld) [Mass/Vol] 11.1 g/dL Low 13.5 - 17.5 g/dL [facility] Interpretation and review of laboratory results Abnormal [facility] MCH (RBC) [Entitic mass] 28.1 pg 26 - 34 pg [facility] MCHC (RBC) [Mass/Vol] 32.3 g/dL 31 - 37 g/dL [facility] MCV (RBC) [Entitic vol] 86.8 fL 80 - 100 fL [facility] Platelet mean volume (Bld) [Entitic vol] 8.4 fL 6.0 - 12.0 fL [facility] Platelets (Bld) [#/Vol] 531 10*3/uL High [facility] RBC (Bld) [#/Vol] 3.94 10*6/uL Low 4.5 - 5.9 m/uL [facility] WBC other (Bld) [#/Vol] 13.2 High [facility] CBCon 12-09-2023 Erythrocyte distribution width (RBC) [Ratio] 16.2 % High 11.5 - 14.9 % [facility] Hematocrit (Bld) [Volume fraction] 35.3 % Low 41 - 53 % [facility] Hemoglobin (Bld) [Mass/Vol] 11.1 g/dL Low 13.5 - 17.5 g/dL [facility] Interpretation and review of laboratory results Abnormal [facility] MCH (RBC) [Entitic mass] 27.6 pg 26 - 34 pg [facility] MCHC (RBC) [Mass/Vol] 31.5 g/dL 31 - 37 g/dL [facility] MCV (RBC) [Entitic vol] 87.5 fL 80 - 100 fL [facility] Platelet mean volume (Bld) [Entitic vol] 8.4 fL 6.0 - 12.0 fL [facility] Platelets (Bld) [#/Vol] 574 10*3/uL High [facility] RBC (Bld) [#/Vol] 4.04 10*6/uL Low 4.5 - 5.9 m/uL [facility] WBC other (Bld) [#/Vol] 13.6 High [facility] Comprehensive Metabolic Pane jordan 12-09-2023 Albumin [Mass/Vol] 3.6 g/dL 3.5 - 5.2 g/dL [facility] ALP [Catalytic activity/Vol] 128 U/L 40 - 129 U/L [facility] ALT [Catalytic activity/Vol] 19 U/L 5 - 41 U/L [facility] Anion gap [Moles/Vol] 14 mmol/L 9 - 17 mmol/L [facility] AST [Catalytic activity/Vol] 24 U/L NINF - 40 U/L [facility] Bilirubin [Mass/Vol] 0.3 mg/dL 0.3 - 1 .2 mg/dL [facility] Calcium [Mass/Vol] 9.2 mg/dL 8.6 - 10. 4 mg/dL [facility] Chloride [Moles/Vol] 100 mmol/L 98 - 10 7 mmol/L [facility] CO2 [Moles/Vol] 27 mmol/L 20 - 31 mmol/L [facility] Creatinine [Mass/Vol] 0.8 mg/dL 0.7 - 1.2 mg/dL [facility] GFR/1.73 sq M.predicted MDRD (S/P/Bld) [Vol rate/Area] - PINF [facility] Comment on above: These results are not [...] 55 mg/dL Low 70 - 99 mg/dL [facility] Interpretation and review of laboratory results Abnormal [facility] Potassium [Moles/Vol] 3.7 mmol/L 3.7 - 5.3 mmol/L [facility] Protein [Mass/Vol] 6.7 g/dL 6.4 - 8.3 g/dL [facility] Sodium [Moles/Vol] 141 mmol/L 135 - 144 mmol/L [facility] Urea nitrogen [Mass/Vol] 8 mg/dL 6 - 20 mg/dL [facility] Cult,Mycobacteriaon 12-09-19 24 Cult,Mycobacteria Specimen Description .BRONCHIAL WASHINGS Direct Exam NO ACID FAST BACILLI SEEN (CONCENTRATED SMEAR) Culture NO GROWTH 48 DAYS Report Status FINAL 12/09/2023 Normal [facility] Comment on above: Performed By: #### A ####[facility] [id number] [place] [address] [facility] Director: Boo Vinson MD Magnesiumon 12-09-2023 Magnesium [Mass/Vol] 1.9 mg/dL 1.6 - 2 .6 mg/dL [facility] No Panel Informationon 12-08 [facility] Phosphoruson 12-09-2023 Phosphate [Mass/Vol] 4.2 mg/dL 2.5 - 4 .5 mg/dL [facility] Basic Metabolic Panelon Anion gap [Moles/Vol] 13 mmol/L 9 - 17 mmol/L [facility] Calcium [Mass/Vol] 9.0 mg/dL 8.6 - 10. 4 mg/dL [facility] Chloride [Moles/Vol] 102 mmol/L 98 - 10 7 mmol/L [facility] CO2 [Moles/Vol] 25 mmol/L 20 - 31 mmol/L [facility] Creatinine [Mass/Vol] 0.7 mg/dL 0.7 - 1.2 mg/dL [facility] GFR/1.73 sq M.predicted MDRD (S/P/Bld) [Vol rate/Area] - PINF [facility] Comment on above: These results are not [...] [Mass/Vol] 77 mg/dL 70 - 99 mg/dL [facility] Potassium [Moles/Vol] 4.2 mmol/L 3.7 - 5.3 mmol/L [facility] Sodium [Moles/Vol] 140 mmol/L 135 - 144 mmol/L [facility] Urea nitrogen [Mass/Vol] 10 mg/dL 6 - 20 mg/dL [facility] CBCon 12-07-2023 Erythrocyte distribution width (RBC) [Ratio] 16.4 % High 11.5 - 14.9 % [facility] Hematocrit (Bld) [Volume fraction] 36.7 % Low 41 - 53 % [facility] Hemoglobin (Bld) [Mass/Vol] 11.6 g/dL Low 13.5 - 17.5 g/dL [facility] Interpretation and review of laboratory results Abnormal [facility] MCH (RBC) [Entitic mass] 27.7 pg 26 - 34 pg [facility] MCHC (RBC) [Mass/Vol] 31.5 g/dL 31 - 37 g/dL [facility] MCV (RBC) [Entitic vol] 87.8 fL 80 - 100 fL [facility] Platelet mean volume (Bld) [Entitic vol] 8.8 fL 6.0 - 12.0 fL [facility] Platelets (Bld) [#/Vol] 493 10*3/uL High [facility] RBC (Bld) [#/Vol] 4.18 10*6/uL Low 4.5 - 5.9 m/uL [facility] WBC other (Bld) [#/Vol] 11.1 High [facility] C-Reactive Proteinon 024 CRP High sensitivity method [Mass/Vol] 54.4 mg/L High 0.0 - 5.0 mg/L [facility] Interpretation and review of laboratory results Abnormal [facility] Lactic Acidon 12-06-2023 Lactate (BldV) [Moles/Vol] 1.0 mmol/L 0.5 - 2.2 mmol/L [facility] Procalcitoninon 12-06-2023 Interpretation and review of laboratory results Abnormal [facility] Procalcitonin [Mass/Vol] 0.10 ng/mL High NINF - 0.09 ng/mL [facility] Comment on above: Suspected Sepsis: <0.50 ng/mL [...] entered into the Change in Procalcitonin Calculator (www.ipwvnk-vgj-xfvfcubxgi.com) to determine the patient's Mortality Risk Prognosis In healthy neonates, plasma Procalcitonin (PCT) concentrations increase gradually after , reaching peak values at about 24 hours of age then decrease to normal values below 0.5 ng/mL by 48-72 hours of age. [facility] CBCon 12-05-2023 Erythrocyte distribution width (RBC) [Ratio] 16.8 % High 11.5 - 14.9 % [facility] Hematocrit (Bld) [Volume fraction] 35.0 % Low 41 - 53 % [facility] Hemoglobin (Bld) [Mass/Vol] 11.6 g/dL Low 13.5 - 17.5 g/dL [facility] Interpretation and review of laboratory results Abnormal [facility] MCH (RBC) [Entitic mass] 29.0 pg 26 - 34 pg [facility] MCHC (RBC) [Mass/Vol] 33.2 g/dL 31 - 37 g/dL [facility] MCV (RBC) [Entitic vol] 87.2 fL 80 - 100 fL [facility] Platelet mean volume (Bld) [Entitic vol] 8.5 fL 6.0 - 12.0 fL [facility] Platelets (Bld) [#/Vol] 504 10*3/uL High [facility] RBC (Bld) [#/Vol] 4.01 10*6/uL Low 4.5 - 5.9 m/uL [facility] WBC other (Bld) [#/Vol] 18.6 High [facility] Comprehensive Metabolic Pane jordan 12-05-2023 Albumin [Mass/Vol] 3.6 g/dL 3.5 - 5.2 g/dL [facility] ALP [Catalytic activity/Vol] 123 U/L 40 - 129 U/L [facility] ALT [Catalytic activity/Vol] 22 U/L 5 - 41 U/L [facility] Anion gap [Moles/Vol] 14 mmol/L 9 - 17 mmol/L [facility] AST [Catalytic activity/Vol] 22 U/L NINF - 40 U/L [facility] Bilirubin [Mass/Vol] 0.4 mg/dL 0.3 - 1 .2 mg/dL [facility] Calcium [Mass/Vol] 9.0 mg/dL 8.6 - 10. 4 mg/dL [facility] Chloride [Moles/Vol] 101 mmol/L 98 - 10 7 mmol/L [facility] CO2 [Moles/Vol] 26 mmol/L 20 - 31 mmol/L [facility] Creatinine [Mass/Vol] 0.8 mg/dL 0.7 - 1.2 mg/dL [facility] GFR/1.73 sq M.predicted MDRD (S/P/Bld) [Vol rate/Area] - PINF [facility] Comment on above: These results are not [...] [Mass/Vol] 82 mg/dL 70 - 99 mg/dL [facility] Potassium [Moles/Vol] 3.7 mmol/L 3.7 - 5.3 mmol/L [facility] Protein [Mass/Vol] 6.5 g/dL 6.4 - 8.3 g/dL [facility] Sodium [Moles/Vol] 141 mmol/L 135 - 144 mmol/L [facility] Urea nitrogen [Mass/Vol] 9 mg/dL 6 - 20 mg/dL [facility] Portable XR Chest AP single viewon 12-05-2023 1. Cardiomegaly. 2. Low lung volumes with [...] lower lung zones. No pneumothoraces are seen. [facility] RIS CONSOLIDATED David Botello, MD - 12/05/2023 EXAMINATION: ONE XRAY VIEW [...] 2. Low lung volumes with bibasilar atelectasis. [facility] Radiology Study observation (narrative) [facility] Portable XR Chest AP single viewOrdered By: David Botello on 12-05-2023 [facility] Work Phone: Urinalysis with Reflex to Cu ltureon 12-05-2023 Bilirubin Ql (U) Negative NEGATIVE [facility] Clarity (U) Clear Clear [facility] [employer] Color (U) Yellow Yellow [facility] [employer] Comment Microscopic exam not performed based on chemical results unless requested in original order. [facility] Glucose Test strip (U) [Mass/Vol] Negative NEGATIVE mg/dL [facility] Hemoglobin Auto test strip Ql (U) Negative NEGATIVE [facility] Ketones (U) [Mass/Vol] Negative NEGATIVE mg/dL [facility] Leukocyte esterase Test strip Ql (U) Negative NEGATIVE [facility] Nitrite Ql (U) Negative NEGATIVE [facility] [employer] pH (U) 5.5 [pH] 5.0 - 8.0 [facility] Protein (U) [Mass/Vol] Negative NEGATIVE mg/dL [facility] Specific gravity (U) [Rel density] 1.014 1.000 - 1.030 [facility] Urobilinogen Qn (U) Normal 0.0 - 1. 0 EU/dL [facility] Ammoniaon 12-02-2023 Ammonia (P) [Moles/Vol] 34 umol/L 16 - 60 umol/L [facility] CBCon 12-02-2023 Erythrocyte distribution width (RBC) [Ratio] 16.3 % High 11.5 - 14.9 % [facility] Hematocrit (Bld) [Volume fraction] 33.9 % Low 41 - 53 % [facility] Hemoglobin (Bld) [Mass/Vol] 11.1 g/dL Low 13.5 - 17.5 g/dL [facility] Interpretation and review of laboratory results Abnormal [facility] MCH (RBC) [Entitic mass] 28.6 pg 26 - 34 pg [facility] MCHC (RBC) [Mass/Vol] 32.6 g/dL 31 - 37 g/dL [facility] MCV (RBC) [Entitic vol] 87.9 fL 80 - 100 fL [facility] Platelet mean volume (Bld) [Entitic vol] 8.3 fL 6.0 - 12.0 fL [facility] Platelets (Bld) [#/Vol] 526 10*3/uL High [facility] RBC (Bld) [#/Vol] 3.86 10*6/uL Low 4.5 - 5.9 m/uL [facility] WBC other (Bld) [#/Vol] 9.1 [facility] Comprehensive Metabolic Pane jordan 12-02-2023 Albumin [Mass/Vol] 3.5 g/dL 3.5 - 5.2 g/dL [facility] ALP [Catalytic activity/Vol] 101 U/L 40 - 129 U/L [facility] ALT [Catalytic activity/Vol] 34 U/L 5 - 41 U/L [facility] Anion gap [Moles/Vol] 13 mmol/L 9 - 17 mmol/L [facility] AST [Catalytic activity/Vol] 36 U/L NINF - 40 U/L [facility] Bilirubin [Mass/Vol] 0.3 mg/dL 0.3 - 1 .2 mg/dL [facility] Calcium [Mass/Vol] 9.0 mg/dL 8.6 - 10. 4 mg/dL [facility] Chloride [Moles/Vol] 101 mmol/L 98 - 10 7 mmol/L [facility] CO2 [Moles/Vol] 28 mmol/L 20 - 31 mmol/L [facility] Creatinine [Mass/Vol] 0.7 mg/dL 0.7 - 1.2 mg/dL [facility] GFR/1.73 sq M.predicted MDRD (S/P/Bld) [Vol rate/Area] - PINF [facility] Comment on above: These results are not [...] [Mass/Vol] 96 mg/dL 70 - 99 mg/dL [facility] Potassium [Moles/Vol] 4.2 mmol/L 3.7 - 5.3 mmol/L [facility] Protein [Mass/Vol] 6.2 g/dL Low 6.4 - 8.3 g/dL [facility] Sodium [Moles/Vol] 142 mmol/L 135 - 144 mmol/L [facility] Urea nitrogen [Mass/Vol] 13 mg/dL 6 - 20 mg/dL [facility] Magnesiumon 12-02-2023 Magnesium [Mass/Vol] 1.8 mg/dL 1.6 - 2 .6 mg/dL [facility] No Panel Informationon 12-01 Interpretation and review of laboratory results Abnormal [facility] Phosphoruson 12-02-2023 Phosphate [Mass/Vol] 5.5 mg/dL High 2.5 - 4 .5 mg/dL [facility] Urinalysis with Reflex to Cu ltureon 11-30-2023 Bilirubin Ql (U) Negative NEGATIVE [facility] Clarity (U) Clear Clear [facility] Color (U) Yellow Yellow [facility] Comment Microscopic exam not performed based on chemical results unless requested in original order. [facility] Glucose Test strip (U) [Mass/Vol] Negative NEGATIVE mg/dL [facility] Hemoglobin Auto test strip Ql (U) Negative NEGATIVE [facility] Ketones (U) [Mass/Vol] Negative NEGATIVE mg/dL [facility] Leukocyte esterase Test strip Ql (U) Negative NEGATIVE [facility] Nitrite Ql (U) Negative NEGATIVE [facility] pH (U) 7.5 [pH] 5.0 - 8.0 [facility] Protein (U) [Mass/Vol] Negative NEGATIVE mg/dL [facility] Specific gravity (U) [Rel density] 1.009 1.000 - 1.030 [facility] Urobilinogen Qn (U) Normal 0.0 - 1. 0 EU/dL [facility] CBCon 11-28-2023 Erythrocyte distribution width (RBC) [Ratio] 15.8 % High 11.5 - 14.9 % [facility] Hematocrit (Bld) [Volume fraction] 33.0 % Low 41 - 53 % [facility] Hemoglobin (Bld) [Mass/Vol] 10.8 g/dL Low 13.5 - 17.5 g/dL [facility] Interpretation and review of laboratory results Abnormal [facility] MCH (RBC) [Entitic mass] 28.9 pg 26 - 34 pg [facility] MCHC (RBC) [Mass/Vol] 32.6 g/dL 31 - 37 g/dL [facility] MCV (RBC) [Entitic vol] 88.7 fL 80 - 100 fL [facility] Platelet mean volume (Bld) [Entitic vol] 8.6 fL 6.0 - 12.0 fL [facility] Platelets (Bld) [#/Vol] 448 10*3/uL [facility] RBC (Bld) [#/Vol] 3.72 10*6/uL Low 4.5 - 5.9 m/uL [facility] WBC other (Bld) [#/Vol] 8.1 [facility] Comprehensive Metabolic Pane jordan 11-28-2023 Albumin [Mass/Vol] 3.3 g/dL Low 3.5 - 5.2 g/dL [facility] ALP [Catalytic activity/Vol] 94 U/L 40 - 129 U/L [facility] ALT [Catalytic activity/Vol] 22 U/L 5 - 41 U/L [facility] Anion gap [Moles/Vol] 14 mmol/L 9 - 17 mmol/L [facility] AST [Catalytic activity/Vol] 33 U/L NINF - 40 U/L [facility] Bilirubin [Mass/Vol] 0.3 mg/dL 0.3 - 1 .2 mg/dL [facility] Calcium [Mass/Vol] 8.8 mg/dL 8.6 - 10. 4 mg/dL [facility] Chloride [Moles/Vol] 103 mmol/L 98 - 10 7 mmol/L [facility] CO2 [Moles/Vol] 24 mmol/L 20 - 31 mmol/L [facility] Creatinine [Mass/Vol] 0.6 mg/dL Low 0.7 - 1.2 mg/dL [facility] GFR/1.73 sq M.predicted MDRD (S/P/Bld) [Vol rate/Area] [facility] Comment on above: These results are [...] 105 mg/dL High 70 - 99 mg/dL [facility] Interpretation and review of laboratory results Abnormal [facility] Potassium [Moles/Vol] 3.8 mmol/L 3.7 - 5.3 mmol/L [facility] Protein [Mass/Vol] 5.8 g/dL Low 6.4 - 8.3 g/dL [facility] Sodium [Moles/Vol] 141 mmol/L 135 - 144 mmol/L [facility] Urea nitrogen [Mass/Vol] 5 mg/dL Low 6 - 20 mg/dL [facility] Culture, Urineon 11-26-2023 Microorganism identified Cx Nom (Unsp spec) NO GROWTH [facility] Specimen Description .URINE,STRAIGHT CATHETER [facility] CBCon 11-25-2023 Erythrocyte distribution width (RBC) [Ratio] 15.7 % High 11.5 - 14.9 % [facility] Hematocrit (Bld) [Volume fraction] 33.5 % Low 41 - 53 % [facility] Hemoglobin (Bld) [Mass/Vol] 10.6 g/dL Low 13.5 - 17.5 g/dL [facility] MCH (RBC) [Entitic mass] 28.5 pg 26 - 34 pg [facility] MCHC (RBC) [Mass/Vol] 31.8 g/dL 31 - 37 g/dL [facility] MCV (RBC) [Entitic vol] 89.7 fL 80 - 100 fL [facility] Platelet mean volume (Bld) [Entitic vol] 8.8 fL 6.0 - 12.0 fL [facility] Platelets (Bld) [#/Vol] 382 10*3/uL [facility] RBC (Bld) [#/Vol] 3.73 10*6/uL Low 4.5 - 5.9 m/uL [facility] WBC other (Bld) [#/Vol] 13.3 High [facility] Comprehensive Metabolic Pane jordan 11-25-2023 Albumin [Mass/Vol] 3.7 g/dL 3.5 - 5.2 g/dL [facility] ALP [Catalytic activity/Vol] 92 U/L 40 - 129 U/L [facility] ALT [Catalytic activity/Vol] 14 U/L 5 - 41 U/L [facility] Anion gap [Moles/Vol] 12 mmol/L 9 - 17 mmol/L [facility] AST [Catalytic activity/Vol] 14 U/L NINF - 40 U/L [facility] Bilirubin [Mass/Vol] 0.4 mg/dL 0.3 - 1 .2 mg/dL [facility] Calcium [Mass/Vol] 8.7 mg/dL 8.6 - 10. 4 mg/dL [facility] Chloride [Moles/Vol] 105 mmol/L 98 - 10 7 mmol/L [facility] CO2 [Moles/Vol] 26 mmol/L 20 - 31 mmol/L [facility] Creatinine [Mass/Vol] 0.8 mg/dL 0.7 - 1.2 mg/dL [facility] GFR/1.73 sq M.predicted MDRD (S/P/Bld) [Vol rate/Area] - PINF [facility] Comment on above: These results are not [...] [Mass/Vol] 93 mg/dL 70 - 99 mg/dL [facility] Potassium [Moles/Vol] 3.7 mmol/L 3.7 - 5.3 mmol/L [facility] Protein [Mass/Vol] 6.2 g/dL Low 6.4 - 8.3 g/dL [facility] Sodium [Moles/Vol] 143 mmol/L 135 - 144 mmol/L [facility] Urea nitrogen [Mass/Vol] 8 mg/dL 6 - 20 mg/dL [facility] Magnesiumon 11-25-2023 Magnesium [Mass/Vol] 2.1 mg/dL 1.6 - 2 .6 mg/dL [facility] No Panel Informationon 11-24 Interpretation and review of laboratory results Abnormal [facility] Phosphoruson 11-25-2023 Phosphate [Mass/Vol] 3.6 mg/dL 2.5 - 4 .5 mg/dL [facility] CBCon 11-23-2023 Erythrocyte distribution width (RBC) [Ratio] 15.7 % High 11.5 - 14.9 % [facility] Hematocrit (Bld) [Volume fraction] 36.5 % Low 41 - 53 % [facility] Hemoglobin (Bld) [Mass/Vol] 11.6 g/dL Low 13.5 - 17.5 g/dL [facility] Interpretation and review of laboratory results Abnormal [facility] MCH (RBC) [Entitic mass] 28.5 pg 26 - 34 pg [facility] MCHC (RBC) [Mass/Vol] 31.8 g/dL 31 - 37 g/dL [facility] MCV (RBC) [Entitic vol] 89.6 fL 80 - 100 fL [facility] Platelet mean volume (Bld) [Entitic vol] 8.3 fL 6.0 - 12.0 fL [facility] Platelets (Bld) [#/Vol] 396 10*3/uL [facility] RBC (Bld) [#/Vol] 4.07 10*6/uL Low 4.5 - 5.9 m/uL [facility] WBC other (Bld) [#/Vol] 19.6 High [facility] Microscopic Urinalysison Bacteria LM Ql (Urine sed) MODERATE Abnormal None [facility] Casts LM.LPF (Urine sed) [#/Area] 0 TO 2 Abnormal None /LPF [facility] Epithelial cells LM.HPF (Urine sed) [#/Area] 0 TO 2 /HPF [facility] Interpretation and review of laboratory results Abnormal [facility] RBC LM.HPF (Urine sed) [#/Area] 0 TO 2 0 TO 2 /HPF [facility] WBC LM.HPF (Urine sed) [#/Area] 3 to 5 Abnormal 0 TO 5 /HPF [facility] Portable XR Chest AP single viewon 11-23-2023 Questionable small r ight pleural effusion with adjacent linear opacities, likely represent atelectasis. [facility] CONSOLIDATED EXAMINATION: ONE XRAY VIEW OF THE CHEST 11/23/2023 5:32 pm COMPARISON: 11/22/2023 HISTORY: ORDERING SYSTEM PROVIDED HISTORY: sepsis work up TECHNOLOGIST PROVIDED HISTORY: Reason for Exam:->sepsis work up Portable?->Yes [facility] Reason for portable exam:->regen Height:177.8cm Weight:94.802kg Reason for Exam: sepsis work up FINDINGS: An enteric tube extends below diaphragm, with its distal tip beyond the field of view. The heart is enlarged, least in part due to magnification from portable technique/low lung volumes. There is questionable small right pleural effusion. Adjacent linear opacities likely represent atelectasis. Remainder of lungs are clear. No pneumothorax. [facility] Juan Ramachandran MD - 11/23/2023 EXAMINATION: ONE XRAY VIEW OF THE CHEST 11/23/2023 5:32 pm COMPARISON: 11/22/2023 HISTORY: ORDERING SYSTEM PROVIDED HISTORY: sepsis work up TECHNOLOGIST PROVIDED HISTORY: Reason for Exam:->sepsis work up Portable?->Yes [facility] Reason for portable exam:->[facility] Height:177.8cm Weight:94.802kg Reason for Exam: sepsis work [...] with adjacent linear opacities, likely represent atelectasis. [facility] [employer] Radiology Study observation (narrative) [facility] [employer] Portable XR Chest AP single viewOrdered By: uJan Ernandez on 11-23-2023 [facility] [employer] Work Phone: Urinalysis with Reflex to Cu ltureon 11-23-2023 Bilirubin Ql (U) Negative Abnormal NEGATIVE [facility] [employer] Clarity (U) Clear Clear [facility] Color (U) Dark Yellow Abnormal Yellow [facility] Glucose Test strip (U) [Mass/Vol] Negative NEGATIVE mg/dL [employer] [facility] Hemoglobin Auto test strip Ql (U) TRACE Abnormal NEGATIVE [facility] [employer] Interpretation and review of laboratory results Abnormal [facility] Ketones (U) [Mass/Vol] TRACE Abnormal NEGATIVE mg/dL [facility] Leukocyte esterase Test strip Ql (U) TRACE Abnormal NEGATIVE [facility] Nitrite Ql (U) Positive Abnormal NEGATIVE [facility] pH (U) 5.0 [pH] 5.0 - 8.0 [facility] Protein (U) [Mass/Vol] Negative NEGATIVE mg/dL [facility] Specific gravity (U) [Rel density] 1.026 1.000 - 1.030 [facility] Urobilinogen Qn (U) Normal 0.0 - 1. 0 EU/dL [facility] XR CHEST PORTABLEon 11-23-19 24 XR CHEST PORTABLE EXAMINATION: ONE XRAY VIEW OF THE CHEST 11/23/2023 5:32 pm COMPARISON: 11/22/2023 HISTORY: ORDERING SYSTEM PROVIDED HISTORY: sepsis work up TECHNOLOGIST PROVIDED HISTORY: Reason for Exam:->sepsis work up Portable?->Yes [facility] Reason for portable exam:->[facility] Height:177.8cm Weight:94.802kg Reason for Exam: sepsis work [...] Juan Ernandez MD 11/23/23 Final result Normal [facility] Ammoniaon 11-22-2023 Ammonia (P) [Moles/Vol] 29 umol/L 16 - 60 umol/L [facility] CBCon 11-22-2023 Erythrocyte distribution width (RBC) [Ratio] 16.3 % High 11.5 - 14.9 % [facility] Hematocrit (Bld) [Volume fraction] 39.1 % Low 41 - 53 % [facility] Hemoglobin (Bld) [Mass/Vol] 12.7 g/dL Low 13.5 - 17.5 g/dL [facility] Interpretation and review of laboratory results Abnormal [facility] MCH (RBC) [Entitic mass] 28.8 pg 26 - 34 pg [facility] MCHC (RBC) [Mass/Vol] 32.4 g/dL 31 - 37 g/dL [facility] MCV (RBC) [Entitic vol] 89.0 fL 80 - 100 fL [facility] Platelet mean volume (Bld) [Entitic vol] 7.3 fL 6.0 - 12.0 fL [facility] Platelets (Bld) [#/Vol] 472 10*3/uL High [facility] RBC (Bld) [#/Vol] 4.39 10*6/uL Low 4.5 - 5.9 m/uL [facility] WBC other (Bld) [#/Vol] 14.3 High [facility] Comprehensive Metabolic Pane jordan 11-22-2023 Albumin [Mass/Vol] 4.4 g/dL 3.5 - 5.2 g/dL [facility] ALP [Catalytic activity/Vol] 105 U/L 40 - 129 U/L [facility] ALT [Catalytic activity/Vol] 23 U/L 5 - 41 U/L [facility] Anion gap [Moles/Vol] 14 mmol/L 9 - 17 mmol/L [facility] AST [Catalytic activity/Vol] 15 U/L NINF - 40 U/L [facility] Bilirubin [Mass/Vol] 0.7 mg/dL 0.3 - 1 .2 mg/dL [facility] Calcium [Mass/Vol] 9.8 mg/dL 8.6 - 10. 4 mg/dL [facility] Chloride [Moles/Vol] 97 mmol/L Low 98 - 10 7 mmol/L [facility] CO2 [Moles/Vol] 27 mmol/L 20 - 31 mmol/L [facility] Creatinine [Mass/Vol] 0.9 mg/dL 0.7 - 1.2 mg/dL [facility] GFR/1.73 sq M.predicted MDRD (S/P/Bld) [Vol rate/Area] - PINF [facility] Comment on above: These results are not [...] [Mass/Vol] 95 mg/dL 70 - 99 mg/dL [facility] [employer] Potassium [Moles/Vol] 4.1 mmol/L 3.7 - 5.3 mmol/L [facility] [employer] Protein [Mass/Vol] 7.4 g/dL 6.4 - 8.3 g/dL [facility] [employer] Sodium [Moles/Vol] 138 mmol/L 135 - 144 mmol/L [facility] [employer] Urea nitrogen [Mass/Vol] 16 mg/dL 6 - 20 mg/dL [facility] Cult,Bloodon 11-22-2023 Cult,Blood Specimen Description .BLOOD Special Requests LFT HAND 10 ML Culture NO GROWTH 5 DAYS Report Status FINAL 11/22/2023 [facility] Comment on above: Performed By: #### B C ####[id number] [place], [place] [id number] lab Director: Boo Vinson MD Cult,Blood Specimen Description .BLOOD Special Requests RT HAND 10 ML Culture NO GROWTH 5 DAYS Report Status FINAL 11/22/2023 [facility] Comment on above: Performed By: #### B C ####[id number] [place], [place] [id number] Lab Director: Boo Vinson MD Hemoglobin A1Con 11-22-2023 Average glucose Estimated from glycated hemoglobin (Bld) [Mass/Vol] 77 mg/dL [facility] [employer] Comment on above: The ADA and AACC rec ommend providing the estimated average glucose result to permit better patient understanding of their HBA1c result. HbA1c (Bld) [Mass fraction] 4.3 % 4.0 - 6.0 % [facility] Magnesiumon 11-22-2023 Magnesium [Mass/Vol] 2.0 mg/dL 1.6 - 2 .6 mg/dL [facility] No Panel Informationon 11-21 Interpretation and review of laboratory results Abnormal [facility] Phosphoruson 11-22-2023 Phosphate [Mass/Vol] 5.1 mg/dL High 2.5 - 4 .5 mg/dL [facility] Portable XR Chest AP single viewon 11-22-2023 No acute process. [facility] CONSOLIDATED EXAMINATION: ONE XRAY VIEW OF THE [...] are without acute process. Similar position devices. [facility] Addison Baker MD - 11/22/2023 EXAMINATION: [...] Similar position devices. IMPRESSION: No acute process. [facility] Radiology Study observation (narrative) [facility] Portable XR Chest AP single viewOrdered By: Addison Baker on 11-22-2023 [facility] Work Phone: TSHon 11-22-2023 TSH Qn 5.50 m[IU]/L High [facility] Vitamin D 25 Hydroxyon 11-21 25-hydroxyvitamin D3 [Mass/Vol] 24.8 ng/mL Low 30.0 - 100.0 ng/mL [facility] Comment on above: Reference Range: Vitamin D status Range Deficiency <20 ng/mL Mild Deficiency 20-30 ng/mL Sufficiency 30-100 ng/mL Toxicity >100 ng/mL Interpretation and review of laboratory results Abnormal [facility] XR CHEST PORTABLEon 11-22-19 XR CHEST PORTABLE EXAMINATION: ONE XRAY VIEW [...] Addison Baker MD 11/22/23 Final result Normal [facility] CBCon 11-21-2023 Erythrocyte distribution width (RBC) [Ratio] 16.4 % High 11.5 - 14.9 % [facility] Hematocrit (Bld) [Volume fraction] 35.2 % Low 41 - 53 % [facility] Hemoglobin (Bld) [Mass/Vol] 11.4 g/dL Low 13.5 - 17.5 g/dL [facility] Interpretation and review of laboratory results Abnormal [facility] MCH (RBC) [Entitic mass] 29.1 pg 26 - 34 pg [facility] MCHC (RBC) [Mass/Vol] 32.4 g/dL 31 - 37 g/dL [facility] MCV (RBC) [Entitic vol] 89.8 fL 80 - 100 fL [facility] Platelet mean volume (Bld) [Entitic vol] 7.5 fL 6.0 - 12.0 fL [facility] Platelets (Bld) [#/Vol] 575 10*3/uL High [facility] RBC (Bld) [#/Vol] 3.92 10*6/uL Low 4.5 - 5.9 m/uL [facility] WBC other (Bld) [#/Vol] 18.1 High [facility] Comprehensive Metabolic Pane jordan 11-21-2023 Albumin [Mass/Vol] 4.4 g/dL 3.5 - 5.2 g/dL [facility] ALP [Catalytic activity/Vol] 115 U/L 40 - 129 U/L [facility] ALT [Catalytic activity/Vol] 32 U/L 5 - 41 U/L [facility] Anion gap [Moles/Vol] 15 mmol/L 9 - 17 mmol/L [facility] AST [Catalytic activity/Vol] 19 U/L NINF - 40 U/L [facility] Bilirubin [Mass/Vol] 0.6 mg/dL 0.3 - 1 .2 mg/dL [facility] Calcium [Mass/Vol] 9.6 mg/dL 8.6 - 10. 4 mg/dL [facility] Chloride [Moles/Vol] 97 mmol/L Low 98 - 10 7 mmol/L [facility] CO2 [Moles/Vol] 29 mmol/L 20 - 31 mmol/L [facility] Creatinine [Mass/Vol] 0.8 mg/dL 0.7 - 1.2 mg/dL [facility] GFR/1.73 sq M.predicted MDRD (S/P/Bld) [Vol rate/Area] - PINF [facility] Comment on above: These results are not [...] [Mass/Vol] 79 mg/dL 70 - 99 mg/dL [facility] Interpretation and review of laboratory results Abnormal [facility] Potassium [Moles/Vol] 3.5 mmol/L Low 3.7 - 5.3 mmol/L [facility] Protein [Mass/Vol] 7.2 g/dL 6.4 - 8.3 g/dL [facility] Sodium [Moles/Vol] 141 mmol/L 135 - 144 mmol/L [facility] Urea nitrogen [Mass/Vol] 11 mg/dL 6 - 20 mg/dL [facility] Troponinon 11-21-2023 Interpretation and review of laboratory results Abnormal [facility] Troponin I.cardiac High sensitivity method [Mass/Vol] 30 ng/L High 0 - 22 ng/L [facility] Comment on above: High Sensitivity Tro ponin values cannot be compared with other Troponin methodologies. [facility] Interpretation and review of laboratory results Abnormal [facility] Troponin I.cardiac High sensitivity method [Mass/Vol] 27 ng/L High 0 - 22 ng/L [facility] Comment on above: High Sensitivity Tro ponin values cannot be compared with other Troponin methodologies. [facility] Basic Metab w/rfx MGon 11-19 Anion gap [Moles/Vol] 15 mmol/L Normal 9-16 [facility] Comment on above: Performed By: #### B MPX, CDP ####[facility] [id number] [place] [address] Lab Director: Boo Vinson MD Calcium [Mass/Vol] 9.5 mg/dL Normal 8.6-10.4 [facility] Comment on above: Performed By: #### B MPX, CDP ####[facility] [id number] [place] [address] lab Director: Boo Vinson MD Chloride [Moles/Vol] 101 mmol/L Normal 98-107 [facility] Comment on above: Performed By: #### B MPX, CDP ####[facility] [id number] [place] [address] lab Director: Boo Vinson MD CO2 [Moles/Vol] 26 mmol/L Normal 20-31 [facility] Comment on above: Performed By: #### B MPX, CDP ####[facility] [id number] [place] [address] Lab Director: Boo Vinson MD Creatinine [Mass/Vol] 0.8 mg/dL Normal 0.70-1.20 [facility] Comment on above: Performed By: #### B MPX, CDP ####[facility] [address] [address] Lab Director: Boo Vinson MD GFR/1.73 sq M.predicted among non-blacks MDRD (S/P/Bld) [Vol rate/Area] mL/min/{1.73_m2} Normal >60 [facility] Comment on above: Result Comment: Thes e [...] secretion. Performed By: #### B MPX, CDP ####[facility] [address] [place] [address])[phone] Director: Boo Vinson MD Glucose [Mass/Vol] 89 mg/dL Normal 74-99 [facility] Comment on above: Performed By: #### B MPX, CDP ####[facility] [address] [place] [id number] Lab Director: Boo Vinson MD Potassium [Moles/Vol] 3.6 mmol/L Low 3.7-5.3 [facility] Comment on above: Performed By: #### B MPX, CDP ####[facility] [address] [place], [place] [phone] Director: Boo Vinson MD Sodium [Moles/Vol] 142 mmol/L Normal 136-145 [facility] Comment on above: Performed By: #### B MPX, CDP ####[facility] [address] [place], [place] [address])[phone] Director: Boo Vinson MD Urea nitrogen [Mass/Vol] 10 mg/dL Normal 6-20 [facility] Comment on above: Performed By: #### B MPX, CDP ####[facility] [address] [place] [address] Lab Director: Boo Vinson MD CBC with Diffon 11-20-2023 Abs. Basophil 0.14 k/uL Normal 0.00-0.20 [facility] Comment on above: Performed By: #### B MPX, CDP ####[place], [place] [address])[phone] Director: Boo Vinson MD Abs.Imm.Granulocyte 0.06 k/uL Normal 0.00-0.30 [facility] Comment on above: Performed By: #### B MPX, CDP ####[facility] [address] [place], [place] [address])[phone] Director: Boo Vinson MD Abs.Neutrophil (Seg) 10.74 k/uL High 1.50-8.10 [facility] Comment on above: Performed By: #### B MPX, CDP ####[address] [address])[phone] Director: Boo Vinson MD Basophils/100 WBC (Bld) 1 % Normal 0-2 [facility] Comment on above: Performed By: #### B MPX, CDP ####[facility] Aim[address] [place] [address])[phone] Director: Boo Vinson MD Eosinophils (Bld) [#/Vol] 0.49 10*3/uL High 0.00-0.44 [facility] Comment on above: Performed By: #### B MPX, CDP ####[facility] [address] [place] [address] [id number])[phone] Director: Boo Vinson MD Eosinophils/100 WBC (Bld) 3 % Normal 1-4 [facility] Comment on above: Performed By: #### B MPX, CDP ####[facility] [address] [place], [place] [id number])[phone] Director: Boo Vinson MD Erythrocyte distribution width (RBC) [Ratio] 15.9 % High 11.8-14.4 [facility] Comment on above: Performed By: #### B MPX, CDP ####[facility] [address]bw[address]20 [place] [address] Lab Director: Boo Vinson MD Hematocrit (Bld) [Volume fraction] 34.7 % Low 40.7-50.3 [facility] Comment on above: Performed By: #### B MPX, CDP ####[facility] Sfulqjlptswe7[address] [place], [place] [id number])[phone] Director: Boo Vinson MD Hemoglobin (Bld) [Mass/Vol] 10.5 g/dL Low 13.0-17.0 [facility] Comment on above: Performed By: #### B MPX, CDP ####[facility] [address]azg6651 [place], [place] [id number])[phone] Director: Boo Vinson MD Immature granulocytes/100 WBC (Bld) 0 % Normal 0 [facility] Comment on above: Performed By: #### B MPX, CDP ####[facility] L[address]ukmarjqvjg3372 [place], [place] [id number])[phone] Director: Boo Vinson MD Lymphocytes (Bld) [#/Vol] 3.05 10*3/uL Normal 1.10-3.70 [facility] Comment on above: Performed By: #### B MPX, CDP ####[facility] [address]lib[address]54 [place] [address] Lab Director: Boo Vinson MD Lymphocytes/100 WBC (Bld) 20 % Low 24-43 [facility] Comment on above: Performed By: #### B MPX, CDP ####[facility] Acwlv[address]ix4436 [place], [place] [id number])[phone] Director: Boo Vinson MD MCH (RBC) [Entitic mass] 28.8 pg Normal 25.2-33.5 [facility] Comment on above: Performed By: #### B MPX, CDP ####[facility] Kfakbaxlovos5861 [place], [place] [id number])[phone] Director: Boo Vinson MD MCHC (RBC) [Mass/Vol] 30.3 g/dL Normal 28.4-34.8 [facility] Comment on above: Performed By: #### B MPX, CDP ####[facility] [address] [place] [address])[phone] Director: Boo Vinson MD MCV (RBC) [Entitic vol] 95.3 fL Normal 82.6-102.9 [facility] Comment on above: Performed By: #### B MPX, CDP ####[facility] Bzfotglzpyga5775 [place], [place] [id number])[phone] Director: Boo Vinson MD Monocytes (Bld) [#/Vol] 1.17 10*3/uL Normal 0.10-1.20 [facility] Comment on above: Performed By: #### B MPX, CDP ####[facility] Hbtkecisjlaz3043 [place], [place] [id number])[phone] Director: Boo Vinson MD Monocytes/100 WBC (Bld) 8 % Normal 3-12 [facility] Comment on above: Performed By: #### B MPX, CDP ####[facility] Yxpinnvsqtqg5141 [place], [place] [id number])[phone] Director: Boo Vinson MD Neutrophil (Seg) 68 % High 36-65 [facility] Comment on above: Performed By: #### B MPX, CDP ####[facility] Tlyynuqenjfm3359 [place], [place] [id number])[phone] Director: Boo Vinson MD NRBC Automated 0.0 per 100 WBC Normal 0.0 [facility] Comment on above: Performed By: #### B MPX, CDP ####[facility] [address] [place] [address] [id number])[phone] Director: Boo Vinson MD Platelet mean volume (Bld) [Entitic vol] 9.3 fL Normal 8.1-13.5 [facility] Comment on above: Performed By: #### B MPX, CDP ####[facility] [address] [place] [address] [id number])[phone] Director: Boo Vinson MD Platelets (Bld) [#/Vol] 551 10*3/uL High 138-453 [facility] Comment on above: Performed By: #### B MPX, CDP ####[facility] [address] [place] [address] [id number])[phone] Director: Boo Vinson MD RBC (Bld) [#/Vol] 3.64 10*6/uL Low 4.21-5.77 [facility] Comment on above: Performed By: #### B MPX, CDP ####[facility] [address] [place] [address] 44835419)[phone] Director: Boo Vinson MD RBC morphology finding Nom (Bld) ANISOCYTOSIS PRESENT Normal [facility] Comment on above: Performed By: #### B MPX, CDP ####[facility] [address]ra[address]ad[address] [place] [address] Lab Director: Boo Vinson MD WBC (Bld) [#/Vol] 15.7 10*3/uL High 3.5-11.3 [facility] Comment on above: Performed By: #### B MPX, CDP ####[facility] I[address]cqh9342 [place] [address] Lab Director: Boo Vinson MD Basic Metab w/rfx MGon 11-18 Anion gap [Moles/Vol] 14 mmol/L Normal 9-16 [facility] Comment on above: Performed By: #### C DP, BMPX, MG, HEPXA ####[facility] [address]wl[address]6166 [place], [place] [address])[phone] Director: Boo Vinson MD Calcium [Mass/Vol] 9.4 mg/dL Normal 8.6-10.4 [facility] Comment on above: Performed By: #### C DP, BMPX, MG, HEPXA ####[facility] [address] [place] [address])[phone] Director: Boo Vinson MD Chloride [Moles/Vol] 103 mmol/L Normal 98-107 [facility] Comment on above: Performed By: #### C DP, BMPX, MG, HEPXA ####[facility] Z[address]7948 [place], [place] [address])[phone] Director: Boo Vinson MD CO2 [Moles/Vol] 26 mmol/L Normal 20-31 [facility] Comment on above: Performed By: #### C DP, BMPX, MG, HEPXA ####[facility] T[address]sp[address]fs9366 [place], [place] [address])[phone] Director: Boo Vinson MD Creatinine [Mass/Vol] 0.7 mg/dL Normal 0.70-1.20 [facility] Comment on above: Performed By: #### C DP, BMPX, MG, HEPXA ####[facility] [address] [place] [address])[phone] Director: Boo Vinson MD GFR/1.73 sq M.predicted among non-blacks MDRD (S/P/Bld) [Vol rate/Area] mL/min/{1.73_m2} Normal >60 [facility] Comment on above: Result Comment: Thes e [...] By: #### C DP, BMPX, MG, HEPXA ####[facility] [address]us[address]32[address] [place], [place] [address])[phone] Director: Boo Vinson MD Glucose [Mass/Vol] 84 mg/dL Normal 74-99 [facility] Comment on above: Performed By: #### C DP, BMPX, MG, HEPXA ####[address] [address])[phone] Director: Boo Vinson MD Potassium [Moles/Vol] 3.2 mmol/L Low 3.7-5.3 [facility] Comment on above: Performed By: #### C DP, BMPX, MG, HEPXA ####[facility] [address] [place] [address] 20131419)[phone] Director: Boo Vinson MD Sodium [Moles/Vol] 143 mmol/L Normal 136-145 [facility] Comment on above: Performed By: #### C DP, BMPX, MG, HEPXA ####[facility] [address]8331 [place], [place] [id number])[phone] Director: Boo Vinson MD Urea nitrogen [Mass/Vol] 6 mg/dL Normal 6-20 [facility] Comment on above: Performed By: #### C DP, BMPX, MG, HEPXA ####[facility] [address]vjt0[address] [place], [place] [id number])[phone] Director: Boo Vinson MD CBC with Diffon 11-19-2023 Abs. Basophil 0.10 k/uL Normal 0.00-0.20 [facility] Comment on above: Performed By: #### C DP, BMPX, MG, HEPXA ####[facility] [address]mb[address] [place], [place] [address])[phone] Director: Boo Vinson MD Abs.Imm.Granulocyte 0.08 k/uL Normal 0.00-0.30 [facility] Comment on above: Performed By: #### C DP, BMPX, MG, HEPXA ####[facility] [address]qsrpnefb[address] [place], [place] [address])[phone] Director: Boo Vinson MD Abs.Neutrophil (Seg) 11.97 k/uL High 1.50-8.10 [facility] Comment on above: Performed By: #### C DP, BMPX, MG, HEPXA ####[place], [place] [address])[phone] Director: Boo Vinson MD Basophils/100 WBC (Bld) 1 % Normal 0-2 [facility] Comment on above: Performed By: #### C DP, BMPX, MG, HEPXA ####[facility] [address] [place], [place] [address])[phone] Director: Boo Vinson MD Eosinophils (Bld) [#/Vol] 0.31 10*3/uL Normal 0.00-0.44 [facility] Comment on above: Performed By: #### C DP, BMPX, MG, HEPXA ####[facility] Xyksxqxrqtwq32[address] [place], [place] [address])[phone] Director: Boo Vinson MD Eosinophils/100 WBC (Bld) 2 % Normal 1-4 [facility] Comment on above: Performed By: #### C DP, BMPX, MG, HEPXA ####[facility] [address]vhparu57[address] [place], [place] [address])[phone] Director: Boo Vinson MD Erythrocyte distribution width (RBC) [Ratio] 16.4 % High 11.8-14.4 [facility] Comment on above: Performed By: #### C DP, BMPX, MG, HEPXA ####[facility] Z[address]zcilb3067 [place], [place] [address])[phone] Director: Boo Vinson MD Hematocrit (Bld) [Volume fraction] 33.0 % Low 40.7-50.3 [facility] Comment on above: Performed By: #### C DP, BMPX, MG, HEPXA ####[facility] Apwcxwbsbvtc0585 [place], [place] [address])[phone] Director: Boo Vinson MD Hemoglobin (Bld) [Mass/Vol] 10.0 g/dL Low 13.0-17.0 [facility] Comment on above: Performed By: #### C DP, BMPX, MG, HEPXA ####[facility] [address] [place] [address])[phone] Director: Boo Vinson MD Immature granulocytes/100 WBC (Bld) 1 % High 0 [facility] Comment on above: Performed By: #### C DP, BMPX, MG, HEPXA ####[facility] [address] [place] [address])[phone] Director: Boo Vinson MD Lymphocytes (Bld) [#/Vol] 2.91 10*3/uL Normal 1.10-3.70 [facility] Comment on above: Performed By: #### C DP, BMPX, MG, HEPXA ####[facility] Sevx[address]soajirj7138 [place], [place] [address])[phone] Director: Boo Vinson MD Lymphocytes/100 WBC (Bld) 18 % Low 24-43 [facility] Comment on above: Performed By: #### C DP, BMPX, MG, HEPXA ####[facility] [address] [place], [place] [address])[phone] Director: Boo Vinson MD MCH (RBC) [Entitic mass] 29.4 pg Normal 25.2-33.5 [facility] Comment on above: Performed By: #### C DP, BMPX, MG, HEPXA ####[facility] Opiegg[address]fsim3572 [place], [place] [id number])[phone] Director: Boo Vinson MD MCHC (RBC) [Mass/Vol] 30.3 g/dL Normal 28.4-34.8 [facility] Comment on above: Performed By: #### C DP, BMPX, MG, HEPXA ####[facility] A[address]np[address]2183 [place], [place] [id number])[phone] Director: Boo Vinson MD MCV (RBC) [Entitic vol] 97.1 fL Normal 82.6-102.9 [facility] Comment on above: Performed By: #### C DP, BMPX, MG, HEPXA ####[facility] [address] [place], [place] 7[address]21419)[phone] Director: Boo Vinson MD Monocytes (Bld) [#/Vol] 1.28 10*3/uL High 0.10-1.20 [facility] Comment on above: Performed By: #### C DP, BMPX, MG, HEPXA ####[facility] [address] [place] [address] 16880419)[phone] Director: Boo Vinson MD Monocytes/100 WBC (Bld) 8 % Normal 3-12 [facility] Comment on above: Performed By: #### C DP, BMPX, MG, HEPXA ####[facility] [address]zsx2034 [place], [place] [id number])[phone] Director: Boo Vinson MD Neutrophil (Seg) 70 % High 36-65 [facility] Comment on above: Performed By: #### C DP, BMPX, MG, HEPXA ####[facility] Nvx[address]ivs8834 [place], [place] [address])[phone] Director: Boo Vinson MD NRBC Automated 0.0 per 100 WBC Normal 0.0 [facility] Comment on above: Performed By: #### C DP, BMPX, MG, HEPXA ####[address] [address] Lab Director: Boo Vinson MD Platelet mean volume (Bld) [Entitic vol] 9.6 fL Normal 8.1-13.5 [facility] Comment on above: Performed By: #### C DP, BMPX, MG, HEPXA ####[facility] [address] [place] [address] [id number])[phone] Director: Boo Vinson MD Platelets (Bld) [#/Vol] 574 10*3/uL High 138-453 [facility] Comment on above: Performed By: #### C DP, BMPX, MG, HEPXA ####[place] [address]([facility])[phone] Director: Boo Vinson MD RBC (Bld) [#/Vol] 3.40 10*6/uL Low 4.21-5.77 [facility] Comment on above: Performed By: #### C DP, BMPX, MG, HEPXA ####[address] [address])[phone] Director: Boo Vinson MD RBC morphology finding Nom (Bld) ANISOCYTOSIS PRESENT Normal [facility] Comment on above: Performed By: #### C DP, BMPX, MG, HEPXA ####[facility] Qzkfropogzmj9077 [place], [place] [id number])[phone] Director: Boo Vinson MD WBC (Bld) [#/Vol] 16.7 10*3/uL High 3.5-11.3 [facility] Comment on above: Performed By: #### C DP, BMPX, MG, HEPXA ####[facility] [address] [place] [address] Lab Director: Boo Vinson MD Heparin Anti-Xaon 11-19-2023 Heparin Anti-Xa 1.81 IU/L Normal [facility] Comment on above: Performed By: #### C DP, BMPX, MG, HEPXA ####[facility] [address]qohjqkfqsoj4144 [place] [address] lab Director: Boo Vinson MD Magnesiumon 11-19-2023 Magnesium [Mass/Vol] 2.1 mg/dL Normal 1.6-2.6 [facility] Comment on above: Performed By: #### C DP, BMPX, MG, HEPXA ####[facility] [address] [place] [address] Lab Director: Boo Vinson MD XR CHEST PORTABLEon 11-19-19 XR CHEST PORTABLE Normal [facility] Basic Metab w/rfx MGon 11-17 Anion gap [Moles/Vol] 14 mmol/L Normal 9-16 [facility] Comment on above: Performed By: #### M G, BMPX, HEPXA, CDP ####[facility] [address] [place] [address] Lab Director: Boo Vinson MD Calcium [Mass/Vol] 9.2 mg/dL Normal 8.6-10.4 [facility] Comment on above: Performed By: #### M G, BMPX, HEPXA, CDP ####[facility] [address]ceahhyt4913 [place] [address] Lab Director: Boo Vinson MD Chloride [Moles/Vol] 104 mmol/L Normal 98-107 [facility] Comment on above: Performed By: #### M G, BMPX, HEPXA, CDP ####[facility] [address]ctqzsbf9380 [place] [address] Lab Director: Boo Vinson MD CO2 [Moles/Vol] 23 mmol/L Normal 20-31 [facility] Comment on above: Performed By: #### M G, BMPX, HEPXA, CDP ####[facility] Szrxknxqixzv5228 [place], [place] [id number])[phone] Director: Boo Vinson MD Creatinine [Mass/Vol] 0.7 mg/dL Normal 0.70-1.20 [facility] Comment on above: Performed By: #### M G, BMPX, HEPXA, CDP ####[facility] Gtoenlrgsmfy6910 [place], [place] [id number])[phone] Director: Boo Vinson MD GFR/1.73 sq M.predicted among non-blacks MDRD (S/P/Bld) [Vol rate/Area] mL/min/{1.73_m2} Normal >60 [facility] Comment on above: Result Comment: Thes e [...] #### M G, BMPX, HEPXA, CDP ####[facility] Xelikxfpf[address]ur0619 [place], [place] [id number])[phone] Director: Boo Vinson MD Glucose [Mass/Vol] 93 mg/dL Normal 74-99 [facility] Comment on above: Performed By: #### M G, BMPX, HEPXA, CDP ####[facility] Ysnfxyidtvee3998 [place], [place] 77210419)[phone] Director: Boo Vinson MD Potassium [Moles/Vol] 3.3 mmol/L Low 3.7-5.3 [facility] Comment on above: Performed By: #### M G, BMPX, HEPXA, CDP ####[facility] Gsguzfdrorgi7618 [place], [place] [id number])[phone] Director: Boo Vinson MD Sodium [Moles/Vol] 141 mmol/L Normal 136-145 [facility] Comment on above: Performed By: #### M G, BMPX, HEPXA, CDP ####[facility] Ybhddxkecoiw2796 [place], [place] [id number])[phone] Director: Boo Vinson MD Urea nitrogen [Mass/Vol] 6 mg/dL Normal 6-20 [facility] Comment on above: Performed By: #### M G, BMPX, HEPXA, CDP ####[facility] Rhtlboeyorbw8960 [place], [place] 59519419)[phone] Director: Boo Vinson MD CBC with Diffon 11-18-2023 Abs. Basophil 0.14 k/uL Normal 0.00-0.20 [facility] Comment on above: Performed By: #### M G, BMPX, HEPXA, CDP ####[facility] Ycouslernicw1748 [place], [place] 30093419)[phone] Director: Boo Vinson MD Abs.Imm.Granulocyte 0.09 k/uL Normal 0.00-0.30 [facility] Comment on above: Performed By: #### M G, BMPX, HEPXA, CDP ####[facility] Gvenwxlissuj4105 [place], [place] [id number])[phone] Director: Boo Vinson MD Abs.Neutrophil (Seg) 7.88 k/uL Normal 1.50-8.10 [facility] Comment on above: Performed By: #### M G, BMPX, HEPXA, CDP ####[facility] Nprjwkxzxqpp9193 [place], [place] [id number])[phone] Director: Boo Vinson MD Basophils/100 WBC (Bld) 1 % Normal 0-2 [facility] Comment on above: Performed By: #### M G, BMPX, HEPXA, CDP ####[facility] Ijs[address]oofrlxb0908 [place], [place] [id number])[phone] Director: Boo Vinson MD Eosinophils (Bld) [#/Vol] 0.64 10*3/uL High 0.00-0.44 [facility] Comment on above: Performed By: #### M G, BMPX, HEPXA, CDP ####[facility] Vjarx[address]jvrtjs5404 [place], [place] [id number])[phone] Director: Boo Vinson MD Eosinophils/100 WBC (Bld) 5 % High 1-4 [facility] Comment on above: Performed By: #### M G, BMPX, HEPXA, CDP ####[facility] Xpmkm[address]cnkpla8920 [place], [place] [address])[phone] Director: Boo Vinson MD Erythrocyte distribution width (RBC) [Ratio] 16.3 % High 11.8-14.4 [facility] Comment on above: Performed By: #### M G, BMPX, HEPXA, CDP ####[facility] Hammgfgmhqje5795 [place], [place] [address])[phone] Director: Boo Vinson MD Hematocrit (Bld) [Volume fraction] 33.1 % Low 40.7-50.3 [facility] Comment on above: Performed By: #### M G, BMPX, HEPXA, CDP ####[facility] [address]uz[address]rpcg7361 [place], [place] [address])[phone] Director: Boo Vinson MD Hemoglobin (Bld) [Mass/Vol] 9.5 g/dL Low 13.0-17.0 [facility] Comment on above: Performed By: #### M G, BMPX, HEPXA, CDP ####[facility] Cftkjtyunvqs4878 [place], [place] 75765419)[phone] Director: Boo Vinson MD Immature granulocytes/100 WBC (Bld) 1 % High 0 [facility] Comment on above: Performed By: #### M G, BMPX, HEPXA, CDP ####[facility] Pil[address]cenesdd4844 [place], [place] [address])[phone] Director: Boo Vinson MD Lymphocytes (Bld) [#/Vol] 4.27 10*3/uL High 1.10-3.70 [facility] Comment on above: Performed By: #### M G, BMPX, HEPXA, CDP ####[facility] Gbxymognxpip9103 [place], [place] [id number])[phone] Director: Boo Vinson MD Lymphocytes/100 WBC (Bld) 30 % Normal 24-43 [facility] Comment on above: Performed By: #### M G, BMPX, HEPXA, CDP ####[facility] [address] [place], [place] [address])[phone] Director: Boo Vinson MD MCH (RBC) [Entitic mass] 28.9 pg Normal 25.2-33.5 [facility] Comment on above: Performed By: #### M G, BMPX, HEPXA, CDP ####[facility] [address] [place], [place] [address])[phone] Director: Boo Vinson MD MCHC (RBC) [Mass/Vol] 28.7 g/dL Normal 28.4-34.8 [facility] Comment on above: Performed By: #### M G, BMPX, HEPXA, CDP ####[facility] [address] [place] [address])[phone] Director: Boo Vinson MD MCV (RBC) [Entitic vol] 100.6 fL Normal 82.6-102.9 [facility] Comment on above: Performed By: #### M G, BMPX, HEPXA, CDP ####[facility] [address] [place], [place] [address])[phone] Director: Boo Vinson MD Monocytes (Bld) [#/Vol] 1.31 10*3/uL High 0.10-1.20 [facility] Comment on above: Performed By: #### M G, BMPX, HEPXA, CDP ####[facility] Eenoeibqabap9963 [place], [place] [id number])[phone] Director: Boo Vinson MD Monocytes/100 WBC (Bld) 9 % Normal 3-12 [facility] Comment on above: Performed By: #### M G, BMPX, HEPXA, CDP ####[facility] Gsb[address]mnppkkv5601 [place] [address] Lab Director: Boo Vinson MD Neutrophil (Seg) 54 % Normal 36-65 [facility] Comment on above: Performed By: #### M G, BMPX, HEPXA, CDP ####[facility] Zdyvbonbnlhx1173 [place], [place] [id number])[phone] Director: Boo Vinson MD NRBC Automated 0.0 per 100 WBC Normal 0.0 [facility] Comment on above: Performed By: #### M G, BMPX, HEPXA, CDP ####[facility] [address] [place] [address] [id number])[phone] Director: Boo Vinson MD Platelet mean volume (Bld) [Entitic vol] 9.5 fL Normal 8.1-13.5 [facility] Comment on above: Performed By: #### M G, BMPX, HEPXA, CDP ####[facility] B[address]ij[address]oxxzj4877 [place] [address] Lab Director: Boo Vinson MD Platelets (Bld) [#/Vol] 519 10*3/uL High 138-453 [facility] Comment on above: Performed By: #### M G, BMPX, HEPXA, CDP ####[facility] Uftkyxstmrnd2718 [place] [address] Lab Director: Boo Vinson MD RBC (Bld) [#/Vol] 3.29 10*6/uL Low 4.21-5.77 [facility] Comment on above: Performed By: #### M G, BMPX, HEPXA, CDP ####[facility] E[address]ujcrqfxzk5169 [place] [address] Lab Director: Boo Vinson MD RBC morphology finding Nom (Bld) ANISOCYTOSIS PRESENT Normal [facility] Comment on above: Performed By: #### M G, BMPX, HEPXA, CDP ####[facility] Z[address]vszwvnrxde4771 [place] [address] Lab Director: Boo Vinson MD WBC (Bld) [#/Vol] 14.3 10*3/uL High 3.5-11.3 [facility] Comment on above: Performed By: #### M David, BMPX, HEPXA, CDP ####[facility] Llbypa[address]rhnq8956 [place], [place] [id number])[phone] Director: Boo Vinson MD Cult,Funguson 11-18-2023 Cult,Fungus Specimen Description .BRONCHIAL WASHINGS Direct Exam NO FUNGAL ELEMENTS SEEN Culture NO GROWTH 28 DAYS Report Status FINAL 11/18/2023 Normal [facility] Comment on above: Performed By: #### F C ####[address] [address] Lab Director: Boo Vinson MD Heparin Anti-Xaon 11-18-2023 Heparin Anti-Xa 0.73 IU/L Normal [facility] Comment on above: Performed By: #### M David, BMPX, HEPXA, CDP ####[facility] F[address]zxapfsxxkt9780 [place] [address] Lab Director: Boo Vinson MD Magnesiumon 11-18-2023 Magnesium [Mass/Vol] 2.4 mg/dL Normal 1.6-2.6 [facility] Comment on above: Performed By: #### M G, BMPX, HEPXA, CDP ####[facility] [address] [place] [address] Lab Director: Boo Vinson MD Basic Metab w/rfx MGon 11-16 Anion gap [Moles/Vol] 14 mmol/L Normal 9-16 [facility] Comment on above: Performed By: #### B MPX ####[facility] [address] [place] [address])[phone] Director: Boo Vinson MD Calcium [Mass/Vol] 9.6 mg/dL Normal 8.6-10.4 [facility] Comment on above: Performed By: #### B MPX ####[facility] [address] [place] [address])[phone] Director: Boo Vinson MD Chloride [Moles/Vol] 104 mmol/L Normal 98-107 [facility] Comment on above: Performed By: #### B MPX ####[address] [address])[phone] Director: Boo Vinson MD CO2 [Moles/Vol] 23 mmol/L Normal 20-31 [facility] Comment on above: Performed By: #### B MPX ####[facility] [address] [place] [address])[phone] Director: Boo Vinson MD Creatinine [Mass/Vol] 0.7 mg/dL Normal 0.70-1.20 [facility] Comment on above: Performed By: #### B MPX ####[address] [address])[phone] Director: Boo Vinson MD GFR/1.73 sq M.predicted among non-blacks MDRD (S/P/Bld) [Vol rate/Area] mL/min/{1.73_m2} Normal >60 [facility] Comment on above: Result Comment: Thes e [...] tubular secretion. Performed By: #### B MPX ####[facility] [address] [place], [place] [address] [facility])[phone] Director: Boo Vinson MD Glucose [Mass/Vol] 103 mg/dL High 74-99 [facility] Comment on above: Performed By: #### B MPX ####[facility] [address] [place] [address] 33274[facility])[phone] Director: Boo Vinson MD Potassium [Moles/Vol] 3.9 mmol/L Normal 3.7-5.3 [facility] Comment on above: Performed By: #### B MPX ####[facility] [address] [place] [address] 85182[facility])[phone] Director: Boo Vinson MD Sodium [Moles/Vol] 141 mmol/L Normal 136-145 [facility] Comment on above: Performed By: #### B MPX ####[address] [id number])[phone] Director: Boo Vinson MD Urea nitrogen [Mass/Vol] 6 mg/dL Normal 6-20 [facility] Comment on above: Performed By: #### B MPX ####[facility] [address] [place] [address] [id number])[phone] Director: Boo Vinson MD Anion gap [Moles/Vol] 13 mmol/L Normal 9-16 [facility] Comment on above: Performed By: #### Mitch Hernandez BMPX ####[facility] [address] [place], [place] [address])[phone] Director: Boo Vinson MD Calcium [Mass/Vol] 9.3 mg/dL Normal 8.6-10.4 [facility] Comment on above: Performed By: #### Mitch Hernandez BMPX ####[facility] [address] [place] [address] [id number])[phone] Director: Boo Vinson MD Chloride [Moles/Vol] 104 mmol/L Normal 98-107 [facility] Comment on above: Performed By: #### M G, BMPX ####[facility] [address] [place], [place] [id number])[phone] Director: Boo Vinson MD CO2 [Moles/Vol] 25 mmol/L Normal 20-31 [facility] Comment on above: Performed By: #### M G, BMPX ####[facility] [address] [place], [place] [id number])[phone] Director: Boo Vinson MD Creatinine [Mass/Vol] 0.7 mg/dL Normal 0.70-1.20 [facility] Comment on above: Performed By: #### M G, BMPX ####[address] [id number])[phone] Director: Boo Vinson MD GFR/1.73 sq M.predicted among non-blacks MDRD (S/P/Bld) [Vol rate/Area] mL/min/{1.73_m2} Normal >60 [facility] Comment on above: Result Comment: Thes e [...] secretion. Performed By: #### M G, BMPX ####[facility] [address] [place], [place] [id number])[phone] Director: Boo Vnison MD Glucose [Mass/Vol] 104 mg/dL High 74-99 [facility] Comment on above: Performed By: #### M G, BMPX ####[facility] [address] [place], [place] [phone] Director: Boo Vinson MD Potassium [Moles/Vol] 3.3 mmol/L Low 3.7-5.3 [facility] Comment on above: Performed By: #### Mitch Hernandez BMPX ####[address] [id number])[phone] Director: Boo Vinson MD Sodium [Moles/Vol] 142 mmol/L Normal 136-145 [facility] Comment on above: Performed By: #### Mitch Hernandez BMPX ####[facility] [address] [place], [place] [address])[phone] Director: Boo Vinson MD Urea nitrogen [Mass/Vol] 6 mg/dL Normal 6-20 [facility] Comment on above: Performed By: #### Mitch Hernandez BMPX ####[place], [place] [address])[phone] Director: Boo Vinson MD CBC with Diffon 11-17-2023 Abs. Basophil 0.16 k/uL Normal 0.00-0.20 [facility] Comment on above: Performed By: #### C DP ####[place], [place] [address])[phone] Director: Boo Vinson MD Abs.Imm.Granulocyte 0.00 k/uL Normal 0.00-0.30 [facility] Comment on above: Performed By: #### C DP ####[place], [place] [address])[phone] Director: Boo Vinson MD Abs.Neutrophil (Seg) 9.76 k/uL High 1.50-8.10 [facility] Comment on above: Performed By: #### C DP ####[address] [address])[phone] Director: Boo Vinson MD Basophils/100 WBC (Bld) 1 % Normal 0-2 [facility] Comment on above: Performed By: #### C DP ####[address] [id number])[phone] Director: Boo Vinson MD Eosinophils (Bld) [#/Vol] 0.48 10*3/uL High 0.00-0.44 [facility] Comment on above: Performed By: #### C DP ####[address] [address]([facility])[phone] Director: Boo Vinson MD Eosinophils/100 WBC (Bld) 3 % Normal 1-4 [facility] Comment on above: Performed By: #### C DP ####[address] [address])[phone] Director: Boo Vinson MD Immature granulocytes/100 WBC (Bld) 0 % Normal 0 [facility] Comment on above: Performed By: #### C DP ####[address] [address])[phone] Director: Boo Vinson MD Lymphocytes (Bld) [#/Vol] 4.00 10*3/uL High 1.10-3.70 [facility] Comment on above: Performed By: #### C DP ####[address] [address])[phone] Director: Boo Vinson MD Lymphocytes/100 WBC (Bld) 25 % Normal 24-43 [facility] Comment on above: Performed By: #### C DP ####[address] [address])[phone] Director: Boo Vinson MD Monocytes (Bld) [#/Vol] 1.60 10*3/uL High 0.10-1.20 [facility] Comment on above: Performed By: #### C DP ####[address] [phone] Director: Boo Vinson MD Monocytes/100 WBC (Bld) 10 % Normal 3-12 [facility] Comment on above: Performed By: #### C DP ####[address] [id number])[phone] Director: Boo Vinson MD Morphology Dante (Bld) [Interp] ANISOCYTOSIS PRESENT Normal [facility] Comment on above: Performed By: #### C DP ####[address] [id number])[phone] Director: Boo Vinson MD Neutrophil (Seg) 61 % Normal 36-65 [facility] Comment on above: Performed By: #### C DP ####[address] [id number])[phone] Director: Boo Vinson MD Erythrocyte distribution width (RBC) [Ratio] 16.4 % High 11.8-14.4 [facility] Comment on above: Performed By: #### C DP ####[address] [id number])[phone] Director: Boo Vinson MD Hematocrit (Bld) [Volume fraction] 31.9 % Low 40.7-50.3 [facility] Comment on above: Performed By: #### C DP ####[address] [address])[phone] Director: Boo Vinson MD Hemoglobin (Bld) [Mass/Vol] 9.5 g/dL Low 13.0-17.0 [facility] Comment on above: Performed By: #### C DP ####[address] [id number])[phone] Director: Boo Vinson MD MCH (RBC) [Entitic mass] 29.1 pg Normal 25.2-33.5 [facility] Comment on above: Performed By: #### C DP ####[address] [id number])[phone] Director: Boo Vinson MD MCHC (RBC) [Mass/Vol] 29.8 g/dL Normal 28.4-34.8 [facility] Comment on above: Performed By: #### C DP ####[address] [id number])[phone] Director: Boo Vinson MD MCV (RBC) [Entitic vol] 97.9 fL Normal 82.6-102.9 [facility] Comment on above: Performed By: #### C DP ####[address] [id number])[phone] Director: Boo Vinson MD NRBC Automated 0.0 per 100 WBC Normal 0.0 [facility] Comment on above: Performed By: #### C DP ####[address] [id number])[phone] Director: Boo Vinson MD Platelet mean volume (Bld) [Entitic vol] 9.8 fL Normal 8.1-13.5 [facility] Comment on above: Performed By: #### C DP ####[address] [id number])[phone] Director: Boo Vinson MD Platelets (Bld) [#/Vol] 540 10*3/uL High 138-453 [facility] Comment on above: Performed By: #### C DP ####[address] [id number])[phone] Director: Boo Vinson MD RBC (Bld) [#/Vol] 3.26 10*6/uL Low 4.21-5.77 [facility] Comment on above: Performed By: #### C DP ####[address] [id number])[phone] Director: Boo Vinson MD WBC (Bld) [#/Vol] 16.0 10*3/uL High 3.5-11.3 [facility] Comment on above: Performed By: #### C DP ####[address] [id number])[phone] Director: Boo Vinson MD FL MODIFIED BARIUM SWALLOW W VIDEOon 11-17-2023 FL MODIFIED BARIUM SWALLOW W VIDEO Normal [facility] Heparin Anti-Xaon 11-17-2023 Heparin Anti-Xa 0.53 IU/L Normal [facility] Comment on above: Performed By: #### H EPXA ####[address] [id number])[phone] Director: Boo Vinson MD Magnesiumon 11-17-2023 Magnesium [Mass/Vol] 2.1 mg/dL Normal 1.6-2.6 [facility] Comment on above: Performed By: #### M G, BMPX ####[address] [id number])[phone] Director: Boo Vinson MD Urinalysis w/ Microon 2023 Bacteria None Normal NONE [facility] Comment on above: Performed By: #### U AMIC ####[address] [id number])[phone] Director: Boo Vinson MD Bilirubin, SemiQt,Ur Negative Normal NEG [facility] Comment on above: Performed By: #### U AMIC ####[address] [id number])[phone] Director: Boo Vinson MD Blood, Urine Negative Normal NEG [facility] Comment on above: Performed By: #### U AMIC ####[address] [id number])[phone] Director: Boo Vinson MD Casts None Normal 0-8 [facility] Comment on above: Result Comment: Refe rence range defined for non-centrifuged specimen. Performed By: #### U AMIC ####[address] [id number])[phone] Director: Boo Vinson MD Clarity (U) Clear Normal CLEAR [facility] Comment on above: Performed By: #### U AMIC ####[address] [id number])[phone] Director: Boo Vinson MD Color (U) Yellow Normal YEL [facility] Comment on above: Performed By: #### U AMIC ####[address] [id number])[phone] Director: Boo Vinson MD Epithelial cells LM Ql (Urine sed) None Normal 0-5 [facility] Comment on above: Performed By: #### U AMIC ####[address] [id number])[phone] Director: Boo Vinson MD Glucose Ql (U) Negative Normal NEG [facility] Comment on above: Performed By: #### U AMIC ####[address] [id number])[phone] Director: Boo Vinson MD Ketones Ql (U) Negative Normal NEG [facility] Comment on above: Performed By: #### U AMIC ####[address] [id number])[phone] Director: Boo Vinson MD Leukocyte esterase Test strip Ql (U) Negative Normal NEG [facility] Comment on above: Performed By: #### U AMIC ####[address] [id number])[phone] Director: Boo Vinson MD Nitrite,Ur Negative Normal NEG [facility] Comment on above: Performed By: #### U AMIC ####[facility] [address] [place], [place] [id number])[phone] Director: Boo Vinson MD PH,Ur 8.0 Normal 5.0-8.0 [facility] Comment on above: Performed By: #### U AMIC ####[address] [id number])[phone] Director: Boo Vinson MD Protein Ql (U) Negative Normal NEG [facility] Comment on above: Performed By: #### U AMIC ####[address] [phone])[phone] Director: Boo Vinson MD Spec. Delevan,Ur 1.006 Normal 1.005-1.030 [facility] Comment on above: Performed By: #### U AMIC ####[address] [id number])[phone] Director: Boo Vinson MD Urine RBC's 2 TO 5 Normal 0-4 [facility] Comment on above: Result Comment: Refe rence range defined for non-centrifuged specimen. Performed By: #### U AMIC ####[address] [id number])[phone] Director: Boo Vinson MD Urine WBC's None Normal 0-5 [facility] Comment on above: Performed By: #### U AMIC ####[address] [id number])[phone] Director: Boo Vinson MD Urobilinogen,Ur Normal Normal 0.0-1.0 [facility] Comment on above: Performed By: #### U AMIC ####[address] [id number])[phone] Director: Boo Vinson MD XR CHEST PORTABLEon 11-17-19 24 XR CHEST PORTABLE Normal [facility] Basic Metab w/rfx MGon 11-15 Anion gap [Moles/Vol] 10 mmol/L Normal 9-16 [facility] Comment on above: Performed By: #### B MPX ####[address] [phone])[phone] Director: Boo Vinson MD Calcium [Mass/Vol] 9.2 mg/dL Normal 8.6-10.4 [facility] Comment on above: Performed By: #### B MPX ####[facility] [address] [place] [address] [id number])[phone] Director: Boo Vinson MD Chloride [Moles/Vol] 105 mmol/L Normal 98-107 [facility] Comment on above: Performed By: #### B MPX ####[address] [id number])[phone] Director: Boo Vinson MD CO2 [Moles/Vol] 27 mmol/L Normal 20-31 [facility] Comment on above: Performed By: #### B MPX ####[facility] [address] [place] [address] [id number])[phone] Director: Boo Vinson MD Creatinine [Mass/Vol] 0.7 mg/dL Normal 0.70-1.20 [facility] Comment on above: Performed By: #### B MPX ####[address] [address])[phone] Director: Boo Vinson MD GFR/1.73 sq M.predicted among non-blacks MDRD (S/P/Bld) [Vol rate/Area] mL/min/{1.73_m2} Normal >60 [facility] Comment on above: Result Comment: Thes e [...] tubular secretion. Performed By: #### B MPX ####[facility] [address] [place], [place] [address])[phone] Director: Boo Vinson MD Glucose [Mass/Vol] 114 mg/dL High 74-99 [facility] Comment on above: Performed By: #### B MPX ####[facility] [address] [place] [address] 465[address])[phone] Director: Boo Vinson MD Potassium [Moles/Vol] 4.0 mmol/L Normal 3.7-5.3 [facility] Comment on above: Performed By: #### B MPX ####[address] [address])[phone] Director: Boo Vinson MD Sodium [Moles/Vol] 142 mmol/L Normal 136-145 [facility] Comment on above: Performed By: #### B MPX ####[address] [address])[phone] Director: Boo Vinson MD Urea nitrogen [Mass/Vol] 8 mg/dL Normal 6-20 [facility] Comment on above: Performed By: #### B MPX ####[facility] [address] [place] [address])[phone] Director: Boo Vinson MD Anion gap [Moles/Vol] 13 mmol/L Normal 9-16 [facility] Comment on above: Performed By: #### Mitch Hernandez BMPX ####[facility] [address] [place] [address] 27[address])[phone] Director: Boo Vinson MD Calcium [Mass/Vol] 8.8 mg/dL Normal 8.6-10.4 [facility] Comment on above: Performed By: #### Mitch Hernandez BMPX ####[address] [place] [address] Lab Director: Boo Vinson MD Chloride [Moles/Vol] 103 mmol/L Normal 98-107 [facility] Comment on above: Performed By: #### M G, BMPX ####[facility] [address] [place], [place] [id number])[phone] Director: Boo Vinson MD CO2 [Moles/Vol] 26 mmol/L Normal 20-31 [facility] Comment on above: Performed By: #### M G, BMPX ####[address] [phone])[phone] Director: Boo Vinson MD Creatinine [Mass/Vol] 0.7 mg/dL Normal 0.70-1.20 [facility] Comment on above: Performed By: #### M David, BMPX ####[address] [id number])[phone] Director: Boo Vinson MD GFR/1.73 sq M.predicted among non-blacks MDRD (S/P/Bld) [Vol rate/Area] mL/min/{1.73_m2} Normal >60 [facility] Comment on above: Result Comment: Thes e [...] secretion. Performed By: #### M G, BMPX ####[facility] [address] [place] [address] [id number])[phone] Director: Boo Vinson MD Glucose [Mass/Vol] 110 mg/dL High 74-99 [facility] Comment on above: Performed By: #### M G, BMPX ####[address] [id number])[phone] Director: Boo Vinson MD Potassium [Moles/Vol] 3.3 mmol/L Low 3.7-5.3 [facility] Comment on above: Performed By: #### M David, BMPX ####[facility] [address] [place] [address] [id number])[phone] Director: Boo Vinson MD Sodium [Moles/Vol] 142 mmol/L Normal 136-145 [facility] Comment on above: Performed By: #### M David, BMPX ####[address] [address])[phone] Director: Boo Vinson MD Urea nitrogen [Mass/Vol] 7 mg/dL Normal 6-20 [facility] Comment on above: Performed By: #### Mitch Hernandez BMPX ####[address] [address])[phone] Director: Boo Vinson MD CBC with Diffon 11-16-2023 Abs. Basophil 0.00 k/uL Normal 0.0-0.2 [facility] Comment on above: Performed By: #### C DP, HEPXA ####[address] [address])[phone] Director: Boo Vinson MD Abs.Imm.Granulocyte 0.00 k/uL Normal 0.00-0.30 [facility] Comment on above: Performed By: #### C DP, HEPXA ####[facility] [address] [place] [address] 924[address])[phone] Director: Boo Vinson MD Abs.Neutrophil (Seg) 8.63 k/uL High 1.8-7.7 [facility] Comment on above: Performed By: #### C DP, HEPXA ####[address] [id number])[phone] Director: Boo Vinson MD Basophils/100 WBC (Bld) 0 % Normal 0-2 [facility] Comment on above: Performed By: #### C DP, HEPXA ####[address] [address])[phone] Director: Boo Vinson MD Eosinophils (Bld) [#/Vol] 0.54 10*3/uL High 0.0-0.4 [facility] Comment on above: Performed By: #### C DP, HEPXA ####[address] [address])[phone] Director: Boo Vinson MD Eosinophils/100 WBC (Bld) 4 % Normal 1-4 [facility] Comment on above: Performed By: #### C DP, HEPXA ####[place], [place] [address])[phone] Director: Boo Vinson MD Immature granulocytes/100 WBC (Bld) 0 % Normal 0 [facility] Comment on above: Performed By: #### C DP, HEPXA ####[place], [place] [address])[phone] Director: Boo Vinson MD Lymphocytes (Bld) [#/Vol] 3.65 10*3/uL Normal 1.0-4.8 [facility] Comment on above: Performed By: #### C DP, HEPXA ####[place], [place] [address])[phone] Director: Boo Vinson MD Lymphocytes/100 WBC (Bld) 27 % Normal 24-44 [facility] Comment on above: Performed By: #### C DP, HEPXA ####[place], [place] [address])[phone] Director: Boo Vinson MD Monocytes (Bld) [#/Vol] 0.68 10*3/uL Normal 0.1-0.8 [facility] Comment on above: Performed By: #### C DP, HEPXA ####[facility] [address] [place], [place] [id number])[phone] Director: Boo Vinson MD Monocytes/100 WBC (Bld) 5 % Normal 1-7 [facility] Comment on above: Performed By: #### C DP, HEPXA ####[address] [id number])[phone] Director: Boo Vinosn MD Morphology Dante (Bld) [Interp] ANISOCYTOSIS PRESENT Normal [facility] Comment on above: Performed By: #### C DP, HEPXA ####[address] [id number])[phone] Director: Boo Vinson MD Neutrophil (Seg) 64 % Normal 36-66 [facility] Comment on above: Performed By: #### C DP, HEPXA ####[address] [id number])[phone] Director: Boo Vinson MD Erythrocyte distribution width (RBC) [Ratio] 15.9 % High 11.8-14.4 [facility] Comment on above: Performed By: #### C DP, HEPXA ####[address] [id number])[phone] Director: Boo Vinson MD Hematocrit (Bld) [Volume fraction] 28.4 % Low 40.7-50.3 [facility] Comment on above: Performed By: #### C DP, HEPXA ####[facility] [address] [place], [place] [id number])[phone] Director: Boo Vinson MD Hemoglobin (Bld) [Mass/Vol] 8.4 g/dL Low 13.0-17.0 [facility] Comment on above: Performed By: #### C DP, HEPXA ####[address] [id number])[phone] Director: Boo Vinson MD MCH (RBC) [Entitic mass] 29.1 pg Normal 25.2-33.5 [facility] Comment on above: Performed By: #### C DP, HEPXA ####[address] [id number])[phone] Director: Boo Vinson MD MCHC (RBC) [Mass/Vol] 29.6 g/dL Normal 28.4-34.8 [facility] Comment on above: Performed By: #### C DP, HEPXA ####[address] [phone])[phone] Director: Boo Vinson MD MCV (RBC) [Entitic vol] 98.3 fL Normal 82.6-102.9 [facility] Comment on above: Performed By: #### C DP, HEPXA ####[address] [id number])[phone] Director: Boo Vinson MD NRBC Automated 0.0 per 100 WBC Normal 0.0 [facility] Comment on above: Performed By: #### C DP, HEPXA ####[address] [id number])[phone] Director: Boo Vinson MD Platelet mean volume (Bld) [Entitic vol] 10.0 fL Normal 8.1-13.5 [facility] Comment on above: Performed By: #### C DP, HEPXA ####[facility] [address] [place] [address] [id number])[phone] Director: Boo Vinson MD Platelets (Bld) [#/Vol] 436 10*3/uL Normal 138-453 [facility] Comment on above: Performed By: #### C DP, HEPXA ####[address] [id number])[phone] Director: Boo Vinson MD RBC (Bld) [#/Vol] 2.89 10*6/uL Low 4.21-5.77 [facility] Comment on above: Performed By: #### C DP, HEPXA ####[facility] [address] [place] [address] Lab Director: Boo Vinson MD WBC (Bld) [#/Vol] 13.5 10*3/uL High 3.5-11.3 [facility] Comment on above: Performed By: #### C DP, HEPXA ####[facility] [address] [place] [address] Lab Director: Boo Vinson MD Cult,Bloodon 11-16-2023 Cult,Blood Specimen Description .BLOOD Special Requests L FOREARM 5 ML Culture NO GROWTH 5 DAYS Report Status FINAL 11/16/2023 Normal [facility] Comment on above: Performed By: #### B C ####[address] [address] Lab Director: Boo Vinson MD Cult,Blood Specimen Description .BLOOD Special Requests R HAND 4 ML Culture NO GROWTH 5 DAYS Report Status FINAL 11/16/2023 Normal [facility] Comment on above: Performed By: #### B C ####[address] [address] Lab Director: Boo Vinson MD Glucose,Whole Bloodon 2023 Glucose [Mass/Vol] 144 mg/dL High 75-110 [facility] Heparin Anti-Xaon 11-16-2023 Heparin Anti-Xa 0.53 IU/L Normal [facility] Comment on above: Performed By: #### C DP, HEPXA ####[address] [place] [address] Lab Director: Boo Vinson MD Magnesiumon 11-16-2023 Magnesium [Mass/Vol] 2.1 mg/dL Normal 1.6-2.6 [facility] Comment on above: Performed By: #### M G, BMPX ####[facility] [address] [place] [address] Lab Director: Boo Vinson MD Arterial Bld Gas,POCon 11-14 Korey Test Positive Normal [facility] FIO2 40.0 Normal [facility] HCO3 (Bld) [Moles/Vol] 27.1 mmol/L Normal 21.0-28.0 [facility] O2 Device Adult Ventilator Normal [facility] Oxygen saturation in Blood 95.0 % Normal 94.0-98.0 [facility] pCO2, Arterial 38.1 mm Hg Normal 35.0-48.0 [facility] pH, Arterial 7.460 High 7.350-7.450 [facility] pO2, Arterial 71.5 mm Hg Low 83.0-108.0 [facility] Positive Base Excess (calc) 3.1 mmol/L High 0.0-3.0 [facility] Site Drawn Right Radial Artery Normal [facility] Basic Metab w/rfx MGon 11-14 Anion gap [Moles/Vol] 12 mmol/L Normal 9-16 [facility] Comment on above: Performed By: #### B MPX ####[facility] [address] [place] [address] Lab Director: Boo Vinson MD Calcium [Mass/Vol] 9.3 mg/dL Normal 8.6-10.4 [facility] Comment on above: Performed By: #### B MPX ####[facility] [address] [place] [address] Lab Director: Boo Vinson MD Chloride [Moles/Vol] 103 mmol/L Normal 98-107 [facility] Comment on above: Performed By: #### B MPX ####[facility] [address] [place] [address] Lab Director: Boo Vinson MD CO2 [Moles/Vol] 27 mmol/L Normal 20-31 [facility] Comment on above: Performed By: #### B MPX ####[facility] [address] [place], [place] [phone])[phone] Director: Boo Vinson MD Creatinine [Mass/Vol] 0.7 mg/dL Normal 0.70-1.20 [facility] Comment on above: Performed By: #### B MPX ####[facility] [address] [place] [address] [id number])[phone] Director: Boo Vinson MD GFR/1.73 sq M.predicted among non-blacks MDRD (S/P/Bld) [Vol rate/Area] mL/min/{1.73_m2} Normal >60 [facility] Comment on above: Result Comment: Thes e [...] tubular secretion. Performed By: #### B MPX ####[facility] [address] [place] [address] [id number])[phone] Director: Boo Vinson MD Glucose [Mass/Vol] 127 mg/dL High 74-99 [facility] Comment on above: Performed By: #### B MPX ####[facility] [address] [place], [place] [id number])[phone] Director: Boo Vinson MD Potassium [Moles/Vol] 3.7 mmol/L Normal 3.7-5.3 [facility] Comment on above: Performed By: #### B MPX ####[facility] [address] [place], [place] [phone] Director: Boo Vinson MD Sodium [Moles/Vol] 142 mmol/L Normal 136-145 [facility] Comment on above: Performed By: #### B MPX ####[facility] [address] [place] [address] Lab Director: Boo Vinson MD Urea nitrogen [Mass/Vol] 7 mg/dL Normal 6-20 [facility] Comment on above: Performed By: #### B MPX ####[facility] [address] [place], [place] [address])[phone] Director: Boo Vinson MD Anion gap [Moles/Vol] 12 mmol/L Normal 9-16 [facility] Comment on above: Performed By: #### B MPX ####[address] [place], [place] [address])[phone] Director: Boo Vinson MD Calcium [Mass/Vol] 9.1 mg/dL Normal 8.6-10.4 [facility] Comment on above: Performed By: #### B MPX ####[facility] [place], [place] [id number])[phone] Director: Boo Vinson MD Chloride [Moles/Vol] 104 mmol/L Normal 98-107 [facility] Comment on above: Performed By: #### B MPX ####[facility] Qpq[address]hl[address] [place], [place] [phone] Director: Boo Vinson MD CO2 [Moles/Vol] 24 mmol/L Normal 20-31 [facility] Comment on above: Performed By: #### B MPX ####[facility] Joow[address]ewg[address]fl[address] [place], [place] [phone])[phone] Director: Boo Vinson MD Creatinine [Mass/Vol] 0.7 mg/dL Normal 0.70-1.20 [facility] Comment on above: Performed By: #### B MPX ####[facility] S[address]fe[address]4084 [place] [address] Lab Director: Boo Vinson MD GFR/1.73 sq M.predicted among non-blacks MDRD (S/P/Bld) [Vol rate/Area] mL/min/{1.73_m2} Normal >60 [facility] Comment on above: Result Comment: Thes e [...] tubular secretion. Performed By: #### B MPX ####[address] [phone] Director: Boo Vinson MD Glucose [Mass/Vol] 105 mg/dL High 74-99 [facility] Comment on above: Performed By: #### B MPX ####[address] [address] Lab Director: Boo Vinson MD Potassium [Moles/Vol] 3.6 mmol/L Low 3.7-5.3 [facility] Comment on above: Performed By: #### B MPX ####[facility] [address] [place] [address] Lab Director: Boo Vinson MD Sodium [Moles/Vol] 140 mmol/L Normal 136-145 [facility] Comment on above: Performed By: #### B MPX ####[facility] [address] [place] [address] Lab Director: Boo Vinson MD Urea nitrogen [Mass/Vol] 7 mg/dL Normal 6-20 [facility] Comment on above: Performed By: #### B MPX ####[address] [address] Lab Director: Boo Vinson MD CBC with Diffon 11-15-2023 Abs. Basophil 0.06 k/uL Normal 0.00-0.20 [facility] Comment on above: Performed By: #### H EPXA, CDP, OSMO ####[facility] [address] [place], [place] [id number])[phone] Director: Boo Vinson MD Abs.Imm.Granulocyte 0.05 k/uL Normal 0.00-0.30 [facility] Comment on above: Performed By: #### H EPXA, CDP, OSMO ####[facility] [address] [place] [address])[phone] Director: Boo Vinson MD Abs.Neutrophil (Seg) 5.73 k/uL Normal 1.50-8.10 [facility] Comment on above: Performed By: #### H EPXA, CDP, OSMO ####[facility] [address] [place] [address])[phone] Director: Boo Vinson MD Basophils/100 WBC (Bld) 1 % Normal 0-2 [facility] Comment on above: Performed By: #### H EPXA, CDP, OSMO ####[facility] [address] [place], [place] [address])[phone] Director: Boo Vinson MD Eosinophils (Bld) [#/Vol] 0.73 10*3/uL High 0.00-0.44 [facility] Comment on above: Performed By: #### H EPXA, CDP, OSMO ####[facility] [address]ux[address] [place], [place] [address])[phone] Director: Boo Vinson MD Eosinophils/100 WBC (Bld) 7 % High 1-4 [facility] Comment on above: Performed By: #### H EPXA, CDP, OSMO ####[facility] [address]oxii[address] [place], [place] [address])[phone] Director: Boo Vinson MD Erythrocyte distribution width (RBC) [Ratio] 16.1 % High 11.8-14.4 [facility] Comment on above: Performed By: #### H EPXA, CDP, OSMO ####[facility] [address]iskprt5[address] [place], [place] [id number])[phone] Director: Boo Vinson MD Hematocrit (Bld) [Volume fraction] 30.3 % Low 40.7-50.3 [facility] Comment on above: Performed By: #### H EPXA, CDP, OSMO ####[facility] Tsctmewvypxo7074 [place], [place] [address])[phone] Director: Boo Vinson MD Hemoglobin (Bld) [Mass/Vol] 8.9 g/dL Low 13.0-17.0 [facility] Comment on above: Performed By: #### H EPXA, CDP, OSMO ####[facility] Zqmdfaxprdhh9520 [place], [place] [id number])[phone] Director: Boo Vinson MD Immature granulocytes/100 WBC (Bld) 1 % High 0 [facility] Comment on above: Performed By: #### H EPXA, CDP, OSMO ####[facility] [address] [place], [place] [id number])[phone] Director: Boo Vinson MD Lymphocytes (Bld) [#/Vol] 3.14 10*3/uL Normal 1.10-3.70 [facility] Comment on above: Performed By: #### H EPXA, CDP, OSMO ####[facility] Vpibrwvsmtgn3754 [place], [place] [id number])[phone] Director: Boo Vinson MD Lymphocytes/100 WBC (Bld) 29 % Normal 24-43 [facility] Comment on above: Performed By: #### H EPXA, CDP, OSMO ####[facility] Cbfxkmhnkddd3402 [place], [place] [phone] Director: Boo Vinson MD MCH (RBC) [Entitic mass] 28.9 pg Normal 25.2-33.5 [facility] Comment on above: Performed By: #### H EPXA, CDP, OSMO ####[facility] Ywt[address]28[address] [place], [place] [id number])[phone] Director: Boo Vinson MD MCHC (RBC) [Mass/Vol] 29.4 g/dL Normal 28.4-34.8 [facility] Comment on above: Performed By: #### H EPXA, CDP, OSMO ####[facility] [address] [place] [address] [id number])[phone] Director: Boo Vinson MD MCV (RBC) [Entitic vol] 98.4 fL Normal 82.6-102.9 [facility] Comment on above: Performed By: #### H EPXA, CDP, OSMO ####[facility] [address] [place] [address] [id number])[phone] Director: Boo Vinson MD Monocytes (Bld) [#/Vol] 1.19 10*3/uL Normal 0.10-1.20 [facility] Comment on above: Performed By: #### H EPXA, CDP, OSMO ####[facility] [address] [place] [address] [id number])[phone] Director: Boo Vinson MD Monocytes/100 WBC (Bld) 11 % Normal 3-12 [facility] Comment on above: Performed By: #### H EPXA, CDP, OSMO ####[facility] Vvsvifipgpom74[address] [place], [place] [id number])[phone] Director: Boo Vinson MD Neutrophil (Seg) 53 % Normal 36-65 [facility] Comment on above: Performed By: #### H EPXA, CDP, OSMO ####[facility] [address] [place], [place] [address])[phone] Director: Boo Vinson MD NRBC Automated 0.0 per 100 WBC Normal 0.0 [facility] Comment on above: Performed By: #### H EPXA, CDP, OSMO ####[facility] [address] [place] [address] Lab Director: Boo Vinson MD Platelet mean volume (Bld) [Entitic vol] 9.9 fL Normal 8.1-13.5 [facility] Comment on above: Performed By: #### H EPXA, CDP, OSMO ####[facility] [address] [place] [address] Lab Director: Boo Vinson MD Platelets (Bld) [#/Vol] 430 10*3/uL Normal 138-453 [facility] Comment on above: Performed By: #### H EPXA, CDP, OSMO ####[facility] [address] [place] [address] Lab Director: Boo Vinson MD RBC (Bld) [#/Vol] 3.08 10*6/uL Low 4.21-5.77 [facility] Comment on above: Performed By: #### H EPXA, CDP, OSMO ####[facility] [address]ch[address]508 [place] [address] Lab Director: Boo Vinson MD RBC morphology finding Nom (Bld) ANISOCYTOSIS PRESENT Normal [facility] Comment on above: Performed By: #### H EPXA, CDP, OSMO ####[facility] [address]amnjevt[address] [place] [address] Lab Director: Boo Vinson MD WBC (Bld) [#/Vol] 10.9 10*3/uL Normal 3.5-11.3 [facility] Comment on above: Performed By: #### H EPXA, CDP, OSMO ####[facility] [address] [place] [address] Lab Director: Boo Vinson MD Glucose (POC)on 11-15-2023 Glucose [Mass/Vol] 125 mg/dL High 74-100 [facility] Glucose,Whole Bloodon 2023 Glucose [Mass/Vol] 136 mg/dL High 75-110 [facility] Glucose [Mass/Vol] 159 mg/dL High 75-110 [facility] Glucose [Mass/Vol] 109 mg/dL Normal 75-110 [facility] Heparin Anti-Xaon 11-15-2023 Heparin Anti-Xa 0.58 IU/L Normal [facility] Comment on above: Performed By: #### H EPXA ####[facility] [address] [place] [address] Lab Director: Boo Vinson MD Heparin Anti-Xa 0.57 IU/L Normal [facility] Comment on above: Performed By: #### H EPXA ####[facility] Dvpeiyfmsudo6075 [place], [place] [id number])[phone] Director: Boo Vinson MD Heparin Anti-Xa 0.29 IU/L Normal [facility] Comment on above: Performed By: #### H EPXA, CDP, OSMO ####[facility] [address]ab[address]zb[address]10 [place] [address] Lab Director: Boo Vinson MD Osmolalityon 11-15-2023 Osmolality [Osmolality] 294 mosm/kg Normal 275-295 [facility] Comment on above: Performed By: #### H EPXA, CDP, OSMO ####[facility] [address]mp[address]59[address] [place] [address] Lab Director: Boo Vinson MD Osmolality, Urineon 11-15-19 24 Osmolality - Urine 230 mOsm/kg Normal 80-1300 [facility] Comment on above: Performed By: #### U RNA, UOSMO ####[facility] [address]fr[address] [place] [address] Lab Director: Boo Vinson MD Sodium, Random Uron 11-15-19 Sodium (U) [Moles/Vol] 105 mmol/L Normal [facility] Comment on above: Result Comment: No n ormal range established. Performed By: #### U RNA, UOSMO ####[facility] [address] [place], [place] 4485908 Lab Director: Boo Vinson MD Arterial Bld Gas,POCon 11-13 Korey Test Positive Normal [facility] FIO2 40.0 Normal [facility] HCO3 (Bld) [Moles/Vol] 26.3 mmol/L Normal 21.0-28.0 [facility] Mode of Delivery PRVC Normal [facility] O2 Device Adult Ventilator Normal [facility] Oxygen saturation in Blood 96.8 % Normal 94.0-98.0 [facility] pCO2, Arterial 37.3 mm Hg Normal 35.0-48.0 [facility] pH, Arterial 7.457 High 7.350-7.450 [facility] pO2, Arterial 83.4 mm Hg Normal 83.0-108.0 [facility] Positive Base Excess (calc) 2.3 mmol/L Normal 0.0-3.0 [facility] Site Drawn Right Radial Artery Normal [facility] Basic Metab w/rfx MGon 11-13 Anion gap [Moles/Vol] 9 mmol/L Normal 9-16 [facility] Comment on above: Performed By: #### B MPX ####[facility] [address]lbzlzx8748 [place], [place] [id number] Lab Director: Boo Vinson MD Calcium [Mass/Vol] 9.1 mg/dL Normal 8.6-10.4 [facility] Comment on above: Performed By: #### B MPX ####[facility] Urjfgfveewej4237 [place], [place] 4165208 Lab Director: Boo Vinson MD Chloride [Moles/Vol] 106 mmol/L Normal 98-107 [facility] Comment on above: Performed By: #### B MPX ####[facility] [address] [place] [address] Lab Director: Boo Vinson MD CO2 [Moles/Vol] 27 mmol/L Normal 20-31 [facility] Comment on above: Performed By: #### B MPX ####[facility] [address] [place] [address] [id number])[phone] Director: Boo Vinson MD Creatinine [Mass/Vol] 0.7 mg/dL Normal 0.70-1.20 [facility] Comment on above: Performed By: #### B MPX ####[address] [address] Lab Director: Boo Vinson MD GFR/1.73 sq M.predicted among non-blacks MDRD (S/P/Bld) [Vol rate/Area] mL/min/{1.73_m2} Normal >60 [facility] Comment on above: Result Comment: Thes e [...] tubular secretion. Performed By: #### B MPX ####[facility] [address] [place], [place] [phone] Director: Boo Vinson MD Glucose [Mass/Vol] 145 mg/dL High 74-99 [facility] Comment on above: Performed By: #### B MPX ####[address] [place], [place] [phone])[phone] Director: Boo Vinson MD Potassium [Moles/Vol] 4.2 mmol/L Normal 3.7-5.3 [facility] Comment on above: Performed By: #### B MPX ####[facility] L[address]xclfc[address] [place], [place] [phone])[phone] Director: Boo Vinson MD Sodium [Moles/Vol] 142 mmol/L Normal 136-145 [facility] Comment on above: Performed By: #### B MPX ####[facility] [address] [place], [place] [address])[phone] Director: Boo Vinson MD Urea nitrogen [Mass/Vol] 7 mg/dL Normal 6-20 [facility] Comment on above: Performed By: #### B MPX ####[facility] [address]esi[address] [place], [place] [address])[phone] Director: Boo Vinson MD Anion gap [Moles/Vol] 10 mmol/L Normal 9-16 [facility] Comment on above: Performed By: #### B MPX, HEPXA, CDP ####[facility] [address]av[address] [place], [place] [address])[phone] Director: Boo Vinson MD Calcium [Mass/Vol] 8.9 mg/dL Normal 8.6-10.4 [facility] Comment on above: Performed By: #### B MPX, HEPXA, CDP ####[facility] [address]scmiyhzh9522 [place], [place] [address])[phone] Director: Boo Vinson MD Chloride [Moles/Vol] 107 mmol/L Normal 98-107 [facility] Comment on above: Performed By: #### B MPX, HEPXA, CDP ####[facility] Il[address]roxjtgla79[address] [place], [place] [id number])[phone] Director: Boo Vinson MD CO2 [Moles/Vol] 26 mmol/L Normal 20-31 [facility] Comment on above: Performed By: #### B MPX, HEPXA, CDP ####[facility] [address]jxglkkxem3236 [place] [address] Lab Director: Boo Vinson MD Creatinine [Mass/Vol] 0.6 mg/dL Low 0.70-1.20 [facility] Comment on above: Performed By: #### B MPX, HEPXA, CDP ####[facility] [address] [place] [address] Lab Director: Boo Vinson MD GFR/1.73 sq M.predicted among non-blacks MDRD (S/P/Bld) [Vol rate/Area] mL/min/{1.73_m2} Normal >60 [facility] Comment on above: Result Comment: Thes e [...] Performed By: #### B MPX, HEPXA, CDP ####[facility] [address] [place], [place] [phone] Director: Boo Vinson MD Glucose [Mass/Vol] 115 mg/dL High 74-99 [facility] Comment on above: Performed By: #### B MPX, HEPXA, CDP ####[facility] [address] [place] [address] [id number])[phone] Director: Boo Vinson MD Potassium [Moles/Vol] 4.0 mmol/L Normal 3.7-5.3 [facility] Comment on above: Result Comment: SPEC IMEN SLIGHTLY HEMOLYZED, RESULTS MAY BE ADVERSELY AFFECTED. Performed By: #### B MPX, HEPXA, CDP ####[facility] [address] [place], [place] [id number])[phone] Director: Boo Vinson MD Sodium [Moles/Vol] 143 mmol/L Normal 136-145 [facility] Comment on above: Performed By: #### B MPX, HEPXA, CDP ####[facility] [address]xmurznvm[address]242 [place] [address] Lab Director: Boo Vinson MD Urea nitrogen [Mass/Vol] 8 mg/dL Normal 6-20 [facility] Comment on above: Performed By: #### B MPX, HEPXA, CDP ####[facility] S[address]bebr[address]23[address] [place], [place] [phone])[phone] Director: Boo Vinson MD Anion gap [Moles/Vol] 13 mmol/L Normal 9-16 [facility] Comment on above: Performed By: #### B MPX ####[facility] [address]ucoqcvoedv9917 [place] [address] Lab Director: Boo Vinson MD Calcium [Mass/Vol] 9.2 mg/dL Normal 8.6-10.4 [facility] Comment on above: Performed By: #### B MPX ####[facility] [address]ys[address]helr1760 [place], [place] [id number])[phone] Director: Boo Vinson MD Chloride [Moles/Vol] 104 mmol/L Normal 98-107 [facility] Comment on above: Performed By: #### B MPX ####[facility] [address]fq[address]ef[address]137 [place] [address] Lab Director: Boo Vinson MD CO2 [Moles/Vol] 25 mmol/L Normal 20-31 [facility] Comment on above: Performed By: #### B MPX ####[facility] Ftiej[address] [place], [place] [id number])[phone] Director: Boo Vinson MD Creatinine [Mass/Vol] 0.8 mg/dL Normal 0.70-1.20 [facility] Comment on above: Performed By: #### B MPX ####[facility] [address] [place] [address] Lab Director: Boo Vinson MD GFR/1.73 sq M.predicted among non-blacks MDRD (S/P/Bld) [Vol rate/Area] mL/min/{1.73_m2} Normal >60 [facility] Comment on above: Result Comment: Thes e [...] tubular secretion. Performed By: #### B MPX ####[address] [id number])[phone] Director: Boo Vinson MD Glucose [Mass/Vol] 159 mg/dL High 74-99 [facility] Comment on above: Performed By: #### B MPX ####[facility] [address] [place] [address] Lab Director: Boo Vinson MD Potassium [Moles/Vol] 4.2 mmol/L Normal 3.7-5.3 [facility] Comment on above: Performed By: #### B MPX ####[facility] [address] [place] [address] Lab Director: Boo Vinson MD Sodium [Moles/Vol] 142 mmol/L Normal 136-145 [facility] Comment on above: Performed By: #### B MPX ####[facility] [address]cpuk[address]rg9137 [place] [address] Lab Director: Boo Vinson MD Urea nitrogen [Mass/Vol] 7 mg/dL Normal 6-20 [facility] Comment on above: Performed By: #### B MPX ####[address] [place] [address] Lab Director: Boo Vinson MD CBC with Diffon 11-14-2023 Abs. Basophil 0.03 k/uL Normal 0.00-0.20 [facility] Comment on above: Performed By: #### B MPX, HEPXA, CDP ####[facility] N[address]axhrducl7220 [place], [place] [phone] Director: Boo Vinson MD Abs.Imm.Granulocyte 0.04 k/uL Normal 0.00-0.30 [facility] Comment on above: Performed By: #### B MPX, HEPXA, CDP ####[facility] [address]besieyn18[address] [place], [place] [address])[phone] Director: Boo Vinson MD Abs.Neutrophil (Seg) 4.51 k/uL Normal 1.50-8.10 [facility] Comment on above: Performed By: #### B MPX, HEPXA, CDP ####[facility] [address] [place], [place] [address])[phone] Director: Boo Vinson MD Basophils/100 WBC (Bld) 0 % Normal 0-2 [facility] Comment on above: Performed By: #### B MPX, HEPXA, CDP ####[facility] [address]25[address] [place], [place] [address])[phone] Director: Boo Vinson MD Eosinophils (Bld) [#/Vol] 0.20 10*3/uL Normal 0.00-0.44 [facility] Comment on above: Performed By: #### B MPX, HEPXA, CDP ####[facility] [address]oodoqvsnsfj6204 [place], [place] [phone])[phone] Director: Boo Vinson MD Eosinophils/100 WBC (Bld) 3 % Normal 1-4 [facility] Comment on above: Performed By: #### B MPX, HEPXA, CDP ####[facility] [address]lxtzwstxufo1350 [place], [place] [address])[phone] Director: Boo Vinson MD Erythrocyte distribution width (RBC) [Ratio] 16.1 % High 11.8-14.4 [facility] Comment on above: Performed By: #### B MPX, HEPXA, CDP ####[facility] Pfsw[address]tdmfaio1570 [place], [place] [id number])[phone] Director: Boo Vinson MD Hematocrit (Bld) [Volume fraction] 25.8 % Low 40.7-50.3 [facility] Comment on above: Performed By: #### B MPX, HEPXA, CDP ####[facility] [address]z70[address] [place], [place] [address])[phone] Director: Boo Vinson MD Hemoglobin (Bld) [Mass/Vol] 7.8 g/dL Low 13.0-17.0 [facility] Comment on above: Performed By: #### B MPX, HEPXA, CDP ####[facility] [address]vxrogbkkkpu4675 [place], [place] [address])[phone] Director: Boo Vinson MD Immature granulocytes/100 WBC (Bld) 1 % High 0 [facility] Comment on above: Performed By: #### B MPX, HEPXA, CDP ####[facility] Tsivjwrkvkre7075 [place], [place] [id number])[phone] Director: Boo Vinson MD Lymphocytes (Bld) [#/Vol] 1.42 10*3/uL Normal 1.10-3.70 [facility] Comment on above: Performed By: #### B MPX, HEPXA, CDP ####[facility] Ihebznunjvma3681 [place], [place] [phone])[phone] Director: Boo Vinson MD Lymphocytes/100 WBC (Bld) 20 % Low 24-43 [facility] Comment on above: Performed By: #### B MPX, HEPXA, CDP ####[facility] [address]bfvwqobvzzz4961 [place], [place] [address])[phone] Director: Boo Vinson MD MCH (RBC) [Entitic mass] 29.4 pg Normal 25.2-33.5 [facility] Comment on above: Performed By: #### B MPX, HEPXA, CDP ####[facility] Fl[address]scxnnzmir4032 [place], [place] [id number])[phone] Director: Boo Vinson MD MCHC (RBC) [Mass/Vol] 30.2 g/dL Normal 28.4-34.8 [facility] Comment on above: Performed By: #### B MPX, HEPXA, CDP ####[facility] [address]wxy[address] [place], [place] [phone])[phone] Director: Boo Vinson MD MCV (RBC) [Entitic vol] 97.4 fL Normal 82.6-102.9 [facility] Comment on above: Performed By: #### B MPX, HEPXA, CDP ####[facility] [address] [place] [address] [id number])[phone] Director: Boo Vinson MD Monocytes (Bld) [#/Vol] 0.94 10*3/uL Normal 0.10-1.20 [facility] Comment on above: Performed By: #### B MPX, HEPXA, CDP ####[facility] [address] [place] [address] [id number])[phone] Director: Boo Vinson MD Monocytes/100 WBC (Bld) 13 % High 3-12 [facility] Comment on above: Performed By: #### B MPX, HEPXA, CDP ####[facility] Gpprehgmwbyg6084 [place], [place] [id number])[phone] Director: Boo Vinson MD Neutrophil (Seg) 63 % Normal 36-65 [facility] Comment on above: Performed By: #### B MPX, HEPXA, CDP ####[facility] Hekehezokdbj0926 [place], [place] [id number])[phone] Director: Boo Vinson MD NRBC Automated 0.0 per 100 WBC Normal 0.0 [facility] Comment on above: Performed By: #### B MPX, HEPXA, CDP ####[facility] Ocllt[address]jpj9937 [place], [place] [phone])[phone] Director: Boo Vinson MD Platelet mean volume (Bld) [Entitic vol] 10.7 fL Normal 8.1-13.5 [facility] Comment on above: Performed By: #### B MPX, HEPXA, CDP ####[facility] Dkkadzbcojib7875 [place], [place] [phone])[phone] Director: Boo Vinson MD Platelets (Bld) [#/Vol] 374 10*3/uL Normal 138-453 [facility] Comment on above: Performed By: #### B MPX, HEPXA, CDP ####[facility] [address] [place] [address] [phone])[phone] Director: Boo Vinson MD RBC (Bld) [#/Vol] 2.65 10*6/uL Low 4.21-5.77 [facility] Comment on above: Performed By: #### B MPX, HEPXA, CDP ####[facility] Yovfikwxbyvq4768 [place], [place] [id number])[phone] Director: Boo Vinson MD RBC morphology finding Nom (Bld) ANISOCYTOSIS PRESENT Normal [facility] Comment on above: Performed By: #### B MPX, HEPXA, CDP ####[facility] Ukygguuadilk3141 [place], [place] [id number])[phone] Director: Boo Vinson MD WBC (Bld) [#/Vol] 7.1 10*3/uL Normal 3.5-11.3 [facility] Comment on above: Performed By: #### B MPX, HEPXA, CDP ####[facility] Gmetrqubsdsj5048 [place], [place] [phone] Director: Boo Vinson MD Glucose (POC)on 11-14-2023 Glucose [Mass/Vol] 117 mg/dL High 74-100 [facility] Heparin Anti-Xaon 11-14-2023 Heparin Anti-Xa 0.39 IU/L Normal [facility] Comment on above: Performed By: #### B MPX, HEPXA, CDP ####[facility] [address]ne[address]acyzlgk9925 [place], [place] [id number] Lab Director: Boo Vinson MD Lactic Acid (POC)on 11-14-19 24 Lactate [Moles/Vol] 0.4 mmol/L Low 0.56-1.39 [facility] Arterial Bld Gas,POCon 11-12 FIO2 40.0 Normal [facility] HCO3 (Bld) [Moles/Vol] 28.0 mmol/L Normal 21.0-28.0 [facility] Oxygen saturation in Blood 95.2 % Normal 94.0-98.0 [facility] pCO2, Arterial 39.8 mm Hg Normal 35.0-48.0 [facility] pH, Arterial 7.456 High 7.350-7.450 [facility] pO2, Arterial 72.8 mm Hg Low 83.0-108.0 [facility] Positive Base Excess (calc) 3.8 mmol/L High 0.0-3.0 [facility] Site Drawn Arterial Line Normal [facility] Basic Metab w/rfx MGon 11-12 Anion gap [Moles/Vol] 9 mmol/L Normal 9-17 [facility] Comment on above: Performed By: #### B MPX, MG ####[facility] [id number] [place], [place] [id number] Lab Director: Boo Vinson MD CO2 [Moles/Vol] 30 mmol/L Normal 20-31 [facility] Comment on above: Performed By: #### B MPX, MG ####[facility] [id number] [place], [place] [id number] Lab Director: Boo Vinson MD Calcium [Mass/Vol] 8.7 mg/dL Normal 8.6-10.4 [facility] Comment on above: Performed By: #### B MPX, MG ####[facility] [id number] [place] [address] Lab Director: Boo Vinson MD Chloride [Moles/Vol] 108 mmol/L High 98-107 [facility] Comment on above: Performed By: #### B MPX, MG ####[facility] [address] [place] [address] Lab Director: Boo Vinson MD Creatinine [Mass/Vol] 0.7 mg/dL Normal 0.70-1.20 [facility] Comment on above: Performed By: #### B MPX, MG ####[facility] [id number] [place] [id number] Lab Director: Boo iVnson MD GFR/1.73 sq M.predicted among non-blacks MDRD (S/P/Bld) [Vol rate/Area] mL/min/{1.73_m2} Normal >60 [facility] Comment on above: Result Comment: Thes e [...] secretion. Performed By: #### B MPX, MG ####[facility] [address] [place] [address] Lab Director: Boo Vinson MD Glucose [Mass/Vol] 126 mg/dL High 74-99 [facility] Comment on above: Performed By: #### B MPX, MG ####[facility] Nlwpnnxfcbff8994 [place], [place] [id number] lab Director: Boo Vinson MD Potassium [Moles/Vol] 3.3 mmol/L Low 3.7-5.3 [facility] Comment on above: Performed By: #### B MPX, MG ####[facility] Sph[address]fsbgfnw9397 [place] [address] Lab Director: Boo Vinson MD Sodium [Moles/Vol] 147 mmol/L High 136-145 [facility] Comment on above: Performed By: #### B MPX, MG ####[facility] Yexhlslecsxj7572 [place] [address] lab Director: Boo Vinson MD Urea nitrogen [Mass/Vol] 6 mg/dL Normal 6-20 [facility] Comment on above: Performed By: #### B MPX, MG ####[facility] Nfdtvfqrhalj9970 [place] [address] Lab Director: Boo Vinson MD Anion gap [Moles/Vol] 10 mmol/L Normal 9-16 [facility] Comment on above: Performed By: #### B MPX ####[facility] Jsozzjnhxbdb3935 [place] [address] Lab Director: Boo Vinson MD Calcium [Mass/Vol] 8.6 mg/dL Normal 8.6-10.4 [facility] Comment on above: Performed By: #### B MPX ####[facility] Mdlccqotcjws2633 [place] [address] Lab Director: Boo Vinson MD Chloride [Moles/Vol] 105 mmol/L Normal 98-107 [facility] Comment on above: Performed By: #### B MPX ####[facility] Yqxtmsepnpyw8210 [place] [address] Lab Director: Boo Vinson MD CO2 [Moles/Vol] 28 mmol/L Normal 20-31 [facility] Comment on above: Performed By: #### B MPX ####[facility] Mhqelfrqwyaf7828 [place] [address] Lab Director: Boo Vinson MD Creatinine [Mass/Vol] 0.7 mg/dL Normal 0.70-1.20 [facility] Comment on above: Performed By: #### B MPX ####[facility] [address] [place] [address] Lab Director: Boo Vinson MD GFR/1.73 sq M.predicted among non-blacks MDRD (S/P/Bld) [Vol rate/Area] mL/min/{1.73_m2} Normal >60 [facility] Comment on above: Result Comment: Thes e [...] secretion. Performed By: #### B MPX ####[facility] [address] [place] [address])[phone] Director: Boo Vinson MD Glucose [Mass/Vol] 114 mg/dL High 74-99 [facility] Comment on above: Performed By: #### B MPX ####[facility] Uwsddghirvdb0319 [place] [address] Lab Director: Boo Vinson MD Potassium [Moles/Vol] 3.6 mmol/L Low 3.7-5.3 [facility] Comment on above: Performed By: #### B MPX ####[facility] Fblnxrswanpf8757 [place], [place] [phone] Director: Boo Vinson MD Sodium [Moles/Vol] 143 mmol/L Normal 136-145 [facility] Comment on above: Performed By: #### B MPX ####[facility] Jxkjfncwhixh0848 [place], [place] [phone])[phone] Director: Boo Vinson MD Urea nitrogen [Mass/Vol] 7 mg/dL Normal 6-20 [facility] Comment on above: Performed By: #### B MPX ####[address] [address])[phone] Director: Boo Vinson MD CBC with Diffon 11-13-2023 Abs. Basophil 0.03 k/uL Normal 0.00-0.20 [facility] Comment on above: Performed By: #### H EPXA, CDP ####[address] [address])[phone] Director: Boo Vinson MD Abs.Imm.Granulocyte 0.03 k/uL Normal 0.00-0.30 [facility] Comment on above: Performed By: #### H EPXA, CDP ####[address] [address])[phone] Director: Boo Vinson MD Abs.Neutrophil (Seg) 3.14 k/uL Normal 1.50-8.10 [facility] Comment on above: Performed By: #### H EPXA, CDP ####[address] [address])[phone] Director: Boo Vinson MD Basophils/100 WBC (Bld) 0 % Normal 0-2 [facility] Comment on above: Performed By: #### H EPXA, CDP ####[facility] [address] [place] [address])[phone] Director: Boo Vinson MD Eosinophils (Bld) [#/Vol] 0.85 10*3/uL High 0.00-0.44 [facility] Comment on above: Performed By: #### H EPXA, CDP ####[address] [address] Lab Director: Boo Vinson MD Eosinophils/100 WBC (Bld) 13 % High 1-4 [facility] Comment on above: Performed By: #### H EPXA, CDP ####[facility] Bmwtsqjtoupb9779 [place], [place] [phone])[phone] Director: Boo Vinson MD Erythrocyte distribution width (RBC) [Ratio] 16.7 % High 11.8-14.4 [facility] Comment on above: Performed By: #### H EPXA, CDP ####[facility] [address] [place] [address] [id number])[phone] Director: Boo Vinson MD Hematocrit (Bld) [Volume fraction] 25.6 % Low 40.7-50.3 [facility] Comment on above: Performed By: #### H EPXA, CDP ####[address] [phone] Director: Boo Vinson MD Hemoglobin (Bld) [Mass/Vol] 7.8 g/dL Low 13.0-17.0 [facility] Comment on above: Performed By: #### H EPXA, CDP ####[address] [id number])[phone] Director: Boo Vinson MD Immature granulocytes/100 WBC (Bld) 0 % Normal 0 [facility] Comment on above: Performed By: #### H EPXA, CDP ####[facility] [address] [place] [address] [phone] Director: Boo Vinson MD Lymphocytes (Bld) [#/Vol] 1.97 10*3/uL Normal 1.10-3.70 [facility] Comment on above: Performed By: #### H EPXA, CDP ####[facility] [address] [place] [address] Lab Director: Boo Vinson MD Lymphocytes/100 WBC (Bld) 29 % Normal 24-43 [facility] Comment on above: Performed By: #### H EPXA, CDP ####[facility] [address] [place] [address] [phone])[phone] Director: Boo Vinson MD MCH (RBC) [Entitic mass] 29.1 pg Normal 25.2-33.5 [facility] Comment on above: Performed By: #### H EPXA, CDP ####[facility] [address] [place] [address] [phone] Director: Boo Vinson MD MCHC (RBC) [Mass/Vol] 30.5 g/dL Normal 28.4-34.8 [facility] Comment on above: Performed By: #### H EPXA, CDP ####[address] [phone] Director: Boo Vinson MD MCV (RBC) [Entitic vol] 95.5 fL Normal 82.6-102.9 [facility] Comment on above: Performed By: #### H EPXA, CDP ####[address] [phone] Director: Boo Vinson MD Monocytes (Bld) [#/Vol] 0.74 10*3/uL Normal 0.10-1.20 [facility] Comment on above: Performed By: #### H EPXA, CDP ####[facility] [address] [place] [address] [id number])[phone] Director: Boo Vinson MD Monocytes/100 WBC (Bld) 11 % Normal 3-12 [facility] Comment on above: Performed By: #### H EPXA, CDP ####[facility] Yjcsxzdpsoxq3749 [place], [place] [id number])[phone] Director: Boo Vinson MD Neutrophil (Seg) 47 % Normal 36-65 [facility] Comment on above: Performed By: #### H EPXA, CDP ####[facility] [address]vntmdvxrd7304 [place], [place] [id number])[phone] Director: Boo Vinson MD NRBC Automated 0.0 per 100 WBC Normal 0.0 [facility] Comment on above: Performed By: #### H EPXA, CDP ####[facility] [address] [place] [address] [id number])[phone] Director: Boo Vinson MD Platelet mean volume (Bld) [Entitic vol] 10.4 fL Normal 8.1-13.5 [facility] Comment on above: Performed By: #### H EPXA, CDP ####[address] [phone] Director: Boo Vinson MD Platelets (Bld) [#/Vol] 333 10*3/uL Normal 138-453 [facility] Comment on above: Performed By: #### H EPXA, CDP ####[facility] [address] [place] [address] [id number])[phone] Director: Boo Vinson MD RBC (Bld) [#/Vol] 2.68 10*6/uL Low 4.21-5.77 [facility] Comment on above: Performed By: #### H EPXA, CDP ####[address] [phone] Director: Boo Vinson MD RBC morphology finding Nom (Bld) ANISOCYTOSIS PRESENT Normal [facility] Comment on above: Performed By: #### H EPXA, CDP ####[facility] [address] [place] [address] [id number])[phone] Director: Boo Vinson MD WBC (Bld) [#/Vol] 6.8 10*3/uL Normal 3.5-11.3 [facility] Comment on above: Performed By: #### H EPXA, CDP ####[address] [address] Lab Director: Boo Vinson MD Glucose (POC)on 11-13-2023 Glucose [Mass/Vol] 112 mg/dL High 74-100 [facility] Heparin Anti-Xaon 11-13-2023 Heparin Anti-Xa 0.33 IU/L Normal [facility] Comment on above: Performed By: #### H EPXA, CDP ####[facility] [address] [place], [place] [phone] Director: Boo Vinson MD Magnesiumon 11-13-2023 Magnesium [Mass/Vol] 2.1 mg/dL Normal 1.6-2.6 [facility] Comment on above: Performed By: #### B MPX, MG ####[facility] Baghcgrfpapv8135 [place], [place] [id number])[phone] Director: Boo Vinson MD Antithrombin III [place] 11-11 Antithrombin III Act 75 % Low 83-122 [facility] Comment on above: Result Comment: Yolanda ents receiving Hirudin may have a falsely decreased Antitrombin III Activity. Performed By: #### A T3A ####[facility] [address]xivxm[address]2195 [place], [place] [id number])[phone] Director: Boo Vinson MD Antithrombin III Act 71 % Low 83-122 [facility] Comment on above: Result Comment: Yolanda ents receiving Hirudin may have a falsely decreased Antitrombin III Activity. Performed By: #### A T3A ####[facility] Q[address]rh[address]res2956 [place], [place] [phone])[phone] Director: Boo Vinson MD Antithrombin III Act 52 % Low 83-122 [facility] Comment on above: Result Comment: Yolanda ents receiving Hirudin may have a falsely decreased Antitrombin III Activity. Performed By: #### A T3A ####[facility] [address]ke5249 [place] [address] Lab Director: Boo Vinson MD#### AHBFR ####[facility] [address] [place] [address] Lab Director: Albert Jennings MD Antithrombin III Act 97 % Normal 83-122 [facility] Comment on above: Result Comment: Yolanda ents receiving Hirudin may have a falsely decreased Antitrombin III Activity. Performed By: #### A T3A ####[facility] Fx[address]ilde8413 [place] [address] Lab Director: Boo Vinson MD#### AHBFR ####[facility] [address] [place] [address] Lab Director: Albert Jennings MD Antithrombin III Act 84 % Normal 83-122 [facility] Comment on above: Result Comment: Yolanda ents receiving Hirudin may have a falsely decreased Antitrombin III Activity. Performed By: #### A T3A ####[facility] Q[address]higugfvxq6786 [place] [address] Lab Director: Boo Vinson MD#### AHBFR ####[facility] [address] [place] [address] Lab Director: Albert Jennings MD Antithrombin III Act 66 % Low 83-122 [facility] Comment on above: Result Comment: Yolanda ents receiving Hirudin may have a falsely decreased Antitrombin III Activity. Performed By: #### V NCR, AT3A ####[facility] [address]tahnkxfxi8411 [place] [address] Lab Director: Boo Vinson MD#### AHBFR ####[facility] [address]zh[address] [place] [address] Lab Director: Albert Jennings MD Antithrombin III Act 84 % Normal 83-122 [facility] Comment on above: Result Comment: Yolanda ents receiving Hirudin may have a falsely decreased Antitrombin III Activity. Performed By: #### A T3A ####[facility] X[address]ao6593 [place] [address] Lab Director: Boo Vinson MD Antithrombin III Act 81 % Low 83-122 [facility] Comment on above: Result Comment: Yolanda ents receiving Hirudin may have a falsely decreased Antitrombin III Activity. Performed By: #### A T3A ####[address] [place], [place] [id number])[phone] Director: Boo Vinson MD Antithrombin III Act 70 % Low 83-122 [facility] Comment on above: Result Comment: Yolanda ents receiving Hirudin may have a falsely decreased Antitrombin III Activity. Performed By: #### A T3A ####[address] [phone])[phone] Director: Boo Vinson MD Antithrombin III Act 83 % Normal 83-122 [facility] Comment on above: Result Comment: Yolanda ents receiving Hirudin may have a falsely decreased Antitrombin III Activity. Performed By: #### A T3A ####[address] [phone])[phone] Director: Boo Vinson MD Arterial Bld Gas,POCon 11-11 Korey Test NOT APPLICABLE Normal [facility] FIO2 40.0 Normal [facility] HCO3 (Bld) [Moles/Vol] 30.3 mmol/L High 21.0-28.0 [facility] Mode of Delivery PRVC Normal [facility] O2 Device Adult Ventilator Normal [facility] Oxygen saturation in Blood 96.6 % Normal 94.0-98.0 [facility] pCO2, Arterial 41.7 mm Hg Normal 35.0-48.0 [facility] pH, Arterial 7.468 High 7.350-7.450 [facility] pO2, Arterial 81.8 mm Hg Low 83.0-108.0 [facility] Positive Base Excess (calc) 6.0 mmol/L High 0.0-3.0 [facility] Site Drawn Arterial Line Normal [facility] Basic Metab w/rfx MGon 11-11 Anion gap [Moles/Vol] 11 mmol/L Normal 9-16 [facility] Comment on above: Performed By: #### B MPX ####[facility] [address] [place], [place] [address])[phone] Director: Boo Vinson MD Calcium [Mass/Vol] 8.6 mg/dL Normal 8.6-10.4 [facility] Comment on above: Performed By: #### B MPX ####[address] [address])[phone] Director: Boo Vinson MD Chloride [Moles/Vol] 104 mmol/L Normal 98-107 [facility] Comment on above: Performed By: #### B MPX ####[facility] Kxpvmovqmtce6703 [place], [place] [phone] Director: Boo Vinson MD CO2 [Moles/Vol] 28 mmol/L Normal 20-31 [facility] Comment on above: Performed By: #### B MPX ####[facility] Uipzmrkbw[address]x8682 [place], [place] [address])[phone] Director: Boo Vinson MD Creatinine [Mass/Vol] 0.6 mg/dL Low 0.70-1.20 [facility] Comment on above: Performed By: #### B MPX ####[address] [address])[phone] Director: Boo Vinson MD GFR/1.73 sq M.predicted among non-blacks MDRD (S/P/Bld) [Vol rate/Area] mL/min/{1.73_m2} Normal >60 [facility] Comment on above: Result Comment: Thes e [...] secretion. Performed By: #### B MPX ####[facility] [address]uz[address]nggt[address] [place], [place] [id number])[phone] Director: Boo Vinson MD Glucose [Mass/Vol] 105 mg/dL High 74-99 [facility] Comment on above: Performed By: #### B MPX ####[facility] X[address]otdt[address]kyy3671 [place], [place] [id number])[phone] Director: Boo Vinson MD Potassium [Moles/Vol] 3.6 mmol/L Low 3.7-5.3 [facility] Comment on above: Performed By: #### B MPX ####[facility] [address] [place] [address] [id number])[phone] Director: Boo Vinson MD Sodium [Moles/Vol] 143 mmol/L Normal 136-145 [facility] Comment on above: Performed By: #### B MPX ####[facility] Gkwh[address]axngfj3527 [place], [place] [phone])[phone] Director: Boo Vinson MD Urea nitrogen [Mass/Vol] 8 mg/dL Normal 6-20 [facility] Comment on above: Performed By: #### B MPX ####[facility] Ouxhuvvjumxm9909 [place], [place] [id number])[phone] Director: Boo Vinson MD Anion gap [Moles/Vol] 12 mmol/L Normal 9-16 [facility] Comment on above: Performed By: #### B MPX ####[facility] Fmwrowcphrqj3818 [place] [address] lab Director: Boo Vinson MD Calcium [Mass/Vol] 8.4 mg/dL Low 8.6-10.4 [facility] Comment on above: Performed By: #### B MPX ####[address] [place] [address] Lab Director: Boo Vinson MD Chloride [Moles/Vol] 103 mmol/L Normal 98-107 [facility] Comment on above: Performed By: #### B MPX ####[facility] Jqks[address]umziv[address]4964 [place] [address] lab Director: Boo Vinson MD CO2 [Moles/Vol] 28 mmol/L Normal 20-31 [facility] Comment on above: Performed By: #### B MPX ####[address] [address] Lab Director: Boo Vinson MD Creatinine [Mass/Vol] 0.6 mg/dL Low 0.70-1.20 [facility] Comment on above: Performed By: #### B MPX ####[address] [address] lab Director: Boo Vinson MD GFR/1.73 sq M.predicted among non-blacks MDRD (S/P/Bld) [Vol rate/Area] mL/min/{1.73_m2} Normal >60 [facility] Comment on above: Result Comment: Thes e [...] tubular secretion. Performed By: #### B MPX ####[address] [address] Lab Director: Boo Vinson MD Glucose [Mass/Vol] 128 mg/dL High 74-99 [facility] Comment on above: Performed By: #### B MPX ####[facility] Omm[address]1020 [place] [address] Lab Director: Boo Vinson MD Potassium [Moles/Vol] 3.6 mmol/L Low 3.7-5.3 [facility] Comment on above: Performed By: #### B MPX ####[facility] [address] [place] [address])[phone] Director: Boo Vinson MD Sodium [Moles/Vol] 143 mmol/L Normal 136-145 [facility] Comment on above: Performed By: #### B MPX ####[address] [address])[phone] Director: Boo Vinson MD Urea nitrogen [Mass/Vol] 8 mg/dL Normal 6-20 [facility] Comment on above: Performed By: #### B MPX ####[facility] [address] [place] [address])[phone] Director: Boo Vinson MD CBCon 11-12-2023 Erythrocyte distribution width (RBC) [Ratio] 17.0 % High 11.8-14.4 [facility] Comment on above: Performed By: #### C BC ####[facility] [address]wmph[address]npvr6503 [place], [place] [address])[phone] Director: Boo Vinson MD Hematocrit (Bld) [Volume fraction] 25.7 % Low 40.7-50.3 [facility] Comment on above: Performed By: #### C BC ####[facility] Fxtyhhwdtxwj3020 [place], [place] [phone])[phone] Director: Boo Vinson MD Hemoglobin (Bld) [Mass/Vol] 7.9 g/dL Low 13.0-17.0 [facility] Comment on above: Performed By: #### C BC ####[address] [place], [place] [id number])[phone] Director: Boo Vinson MD MCH (RBC) [Entitic mass] 29.0 pg Normal 25.2-33.5 [facility] Comment on above: Performed By: #### C BC ####[address] [phone] Director: Boo Vinson MD MCHC (RBC) [Mass/Vol] 30.7 g/dL Normal 28.4-34.8 [facility] Comment on above: Performed By: #### C BC ####[address] [phone])[phone] Director: Boo Vinson MD MCV (RBC) [Entitic vol] 94.5 fL Normal 82.6-102.9 [facility] Comment on above: Performed By: #### C BC ####[address] [id number])[phone] Director: Boo Vinson MD NRBC Automated 0.0 per 100 WBC Normal 0.0 [facility] Comment on above: Performed By: #### C BC ####[address] [phone])[phone] Director: Boo Vinson MD Platelet mean volume (Bld) [Entitic vol] 10.0 fL Normal 8.1-13.5 [facility] Comment on above: Performed By: #### C BC ####[address] [phone] Director: Boo Vinson MD Platelets (Bld) [#/Vol] 328 10*3/uL Normal 138-453 [facility] Comment on above: Performed By: #### C BC ####[address] [address] Lab Director: Boo Vinson MD RBC (Bld) [#/Vol] 2.72 10*6/uL Low 4.21-5.77 [facility] Comment on above: Performed By: #### C BC ####[facility] [address]94 [place] [address] Lab Director: Boo Vinson MD WBC (Bld) [#/Vol] 8.2 10*3/uL Normal 3.5-11.3 [facility] Comment on above: Performed By: #### C BC ####[facility] [address]3226 [place] [address] Lab Director: Boo Vinson MD Glucose (POC)on 11-12-2023 Glucose [Mass/Vol] 128 mg/dL High 74-100 [facility] Heparin Anti-Xaon 11-12-2023 Heparin Anti-Xa 0.33 IU/L Normal [facility] Comment on above: Performed By: #### O SMO, HEPXA, TRIG ####[facility] [address]zg5916 [place] [address] Lab Director: Boo Vinson MD Lactic Acid (POC)on 11-12-19 24 Lactate [Moles/Vol] 0.5 mmol/L Low 0.56-1.39 [facility] Osmolalityon 11-12-2023 Osmolality [Osmolality] 293 mosm/kg Normal 275-295 [facility] Comment on above: Performed By: #### O SMO, HEPXA, TRIG ####[facility] [address] [place], [place] [phone])[phone] Director: Boo Vinson MD Osmolality, Urineon 11-12-19 24 Osmolality - Urine 369 mOsm/kg Normal 80-1300 [facility] Comment on above: Performed By: #### U OSMO ####[facility] [address]wdvx3215 [place] [address] Lab Director: Boo Vinson MD Triglycerideson 11-12-2023 Triglyceride [Mass/Vol] 175 mg/dL High <150 [facility] Comment on above: Result Comment: Trig lyceride Guidelines: <150 Desirable 150- 199 Borderline 200-499 High >499 Very high Based on AHA Guidelines for fasting triglyceride, June 2012. Performed By: #### O SMO, HEPXA, TRIG ####[facility] [address] [place], [place] [id number])[phone] Director: Boo Vinson MD Basic Metabolic Profon 11-10 Anion gap [Moles/Vol] 8 mmol/L Low 9-16 [facility] Comment on above: Performed By: #### B MP ####[facility] [address] [place], [place] [phone])[phone] Director: Boo Vinson MD Calcium [Mass/Vol] 8.8 mg/dL Normal 8.6-10.4 [facility] Comment on above: Performed By: #### B MP ####[facility] [address] [place] [address] [id number])[phone] Director: Boo Vinson MD Chloride [Moles/Vol] 103 mmol/L Normal 98-107 [facility] Comment on above: Performed By: #### B MP ####[facility] [address]pr[address] [place], [place] [phone])[phone] Director: Boo Vinson MD CO2 [Moles/Vol] 31 mmol/L Normal 20-31 [facility] Comment on above: Performed By: #### B MP ####[facility] F[address]hr[address]rv8252 [place], [place] [phone])[phone] Director: Boo Vinson MD Creatinine [Mass/Vol] 0.6 mg/dL Low 0.70-1.20 [facility] Comment on above: Performed By: #### B MP ####[facility] P[address]pp[address] [place], [place] [phone])[phone] Director: Boo Vinson MD GFR/1.73 sq M.predicted among non-blacks MDRD (S/P/Bld) [Vol rate/Area] mL/min/{1.73_m2} Normal >60 [facility] Comment on above: Result Comment: Thes e [...] tubular secretion. Performed By: #### B MP ####[address] [address])[phone] Director: Boo Vinson MD Glucose [Mass/Vol] 128 mg/dL High 74-99 [facility] Comment on above: Performed By: #### B MP ####[address] [address])[phone] Director: Boo Vinson MD Potassium [Moles/Vol] 3.9 mmol/L Normal 3.7-5.3 [facility] Comment on above: Performed By: #### B MP ####[address] [phone])[phone] Director: Boo Vinson MD Sodium [Moles/Vol] 142 mmol/L Normal 136-145 [facility] Comment on above: Performed By: #### B MP ####[address] [place], [place] [id number])[phone] Director: Boo Vinson MD Urea nitrogen [Mass/Vol] 7 mg/dL Normal 6-20 [facility] Comment on above: Performed By: #### B MP ####[address] [phone])[phone] Director: Boo Vinson MD MRI LIMITED BRAINon 11-11-19 24 MRI LIMITED BRAIN Normal [facility] Hgb Free, Plasmaon 4 Hgb Free, Plasma 7.8 mg/dL Normal 0.0-9.7 [facility] Comment on above: Result Comment: (NOT E)Performed By: [address] [place], [place] [address]Laboratory Director: Edgardo Abdullahi MD, PhDCLIA Number: [id number] Performed By: #### L ACTIC, MG, PT, VNCR, CBC, PTT, BMP, FIB, IOCAL ####[facility] [address] [place], [place] [id number] lab Director: Boo Vinson MD#### AHBFR ####[address] [address] lab Director: Albert Jennings MD Hgb Free, Plasmaon 4 Hgb Free, Plasma 4.0 mg/dL Normal 0.0-9.7 [facility] Comment on above: Result Comment: (NOT E)Performed By: [address] [place], [place] [address]Laboratory Director: Edgardo Abdullahi MD, PhDCLIA Number: [id number] Performed By: #### V NCR, AT3A ####[facility] [address] [place], [place] [id number] lab Director: Boo Vinson MD#### AHBFR ####[address] [address] Lab Director: Albert Jennings MD Sharee 11-08-2023 ACT 151 sec High 79-149 [facility] APTTon 11-08-2023 aPTT Coag (Bld) [Time] 32.2 s Normal 23.0-36.5 [facility] Comment on above: Result Comment: IV H eparin Therapy Range:66.0-92.0 sec Performed By: #### L IVP, CBC, IOCAL, PTT, FIB, MG, BMP, PT, LACTIC ####[facility] [address] [place] [address] Lab Director: Boo Vinson MD aPTT Coag (Bld) [Time] 37.5 s High 23.0-36.5 [facility] Comment on above: Result Comment: IV H eparin Therapy Range:66.0-92.0 sec Performed By: #### L ACTIC, MG, PT, VNCR, CBC, PTT, BMP, FIB, IOCAL ####[facility] [address] [place] [address] Lab Director: Boo Vinson MD#### AHBFR ####[facility] [address] [place] [address] lab Director: Albert Jennings MD Arterial Bld Gas,POCon 11-07 HCO3 (Bld) [Moles/Vol] 28.8 mmol/L High 21.0-28.0 [facility] Oxygen saturation in Blood 98.0 % Normal 94.0-98.0 [facility] pCO2, Arterial 41.1 mm Hg Normal 35.0-48.0 [facility] pH, Arterial 7.454 High 7.350-7.450 [facility] [facility] pO2, Arterial 99.0 mm Hg Normal 83.0-108.0 [facility] Positive Base Excess (calc) 4.4 mmol/L High 0.0-3.0 [facility] FIO2 40.0 Normal [facility] HCO3 (Bld) [Moles/Vol] 28.4 mmol/L High 21.0-28.0 [facility] O2 Device Adult Ventilator Normal [facility] Oxygen saturation in Blood 98.4 % High 94.0-98.0 [facility] pCO2, Arterial 36.8 mm Hg Normal 35.0-48.0 [facility] pH, Arterial 7.495 High 7.350-7.450 [facility] pO2, Arterial 102.4 mm Hg Normal 83.0-108.0 [facility] Positive Base Excess (calc) 4.8 mmol/L High 0.0-3.0 [facility] Site Drawn Arterial Line Normal [facility] FIO2 40.0 Normal [facility] HCO3 (Bld) [Moles/Vol] 28.1 mmol/L High 21.0-28.0 [facility] O2 Device Adult Ventilator Normal [facility] Oxygen saturation in Blood 97.9 % Normal 94.0-98.0 [facility] pCO2, Arterial 34.8 mm Hg Low 35.0-48.0 [facility] pH, Arterial 7.515 High 7.350-7.450 [facility] pO2, Arterial 90.5 mm Hg Normal 83.0-108.0 [facility] Positive Base Excess (calc) 4.9 mmol/L High 0.0-3.0 [facility] Site Drawn Arterial Line Normal [facility] Basic Metabolic Profon 11-07 Anion gap [Moles/Vol] 9 mmol/L Normal 9-16 [facility] Comment on above: Performed By: #### L IVP, CBC, IOCAL, PTT, FIB, MG, BMP, PT, LACTIC ####[facility] [address] [place] [id number] Lab Director: Boo Vinson MD Calcium [Mass/Vol] 8.3 mg/dL Low 8.6-10.4 [facility] Comment on above: Performed By: #### L IVP, CBC, IOCAL, PTT, FIB, MG, BMP, PT, LACTIC ####[address] [place] [id number] Lab Director: Boo Vinson MD Chloride [Moles/Vol] 106 mmol/L Normal 98-107 [facility] Comment on above: Performed By: #### L IVP, CBC, IOCAL, PTT, FIB, MG, BMP, PT, LACTIC ####[facility] R[address]sc[address]62 [place] [address] lab Director: Boo Vinson MD CO2 [Moles/Vol] 27 mmol/L Normal 20-31 [facility] Comment on above: Performed By: #### L IVP, CBC, IOCAL, PTT, FIB, MG, BMP, PT, LACTIC ####[facility] [address] [place] [address] Lab Director: Boo Vinson MD Creatinine [Mass/Vol] 0.6 mg/dL Low 0.70-1.20 [facility] Comment on above: Performed By: #### L IVP, CBC, IOCAL, PTT, FIB, MG, BMP, PT, LACTIC ####[address] [address] lab Director: Boo Vinson MD Glucose [Mass/Vol] 147 mg/dL High 74-99 [facility] Comment on above: Performed By: #### L IVP, CBC, IOCAL, PTT, FIB, MG, BMP, PT, LACTIC ####[address] [address] Lab Director: Boo Vinson MD Potassium [Moles/Vol] 3.7 mmol/L Normal 3.7-5.3 [facility] Comment on above: Performed By: #### L IVP, CBC, IOCAL, PTT, FIB, MG, BMP, PT, LACTIC ####[facility] [address] [place] [address] lab Director: Boo Vinson MD Sodium [Moles/Vol] 142 mmol/L Normal 136-145 [facility] Comment on above: Performed By: #### L IVP, CBC, IOCAL, PTT, FIB, MG, BMP, PT, LACTIC ####[facility] [address] [place] [address] Lab Director: Boo Vinson MD Urea nitrogen [Mass/Vol] 20 mg/dL Normal 6-20 [facility] Comment on above: Performed By: #### L IVP, CBC, IOCAL, PTT, FIB, MG, BMP, PT, LACTIC ####[facility] [address]1326 [place] [address] Lab Director: Boo Vinson MD Anion gap [Moles/Vol] 10 mmol/L Normal 9-16 [facility] Comment on above: Performed By: #### L ACTIC, MG, PT, VNCR, CBC, PTT, BMP, FIB, IOCAL ####[address] [address] Lab Director: Boo Vinson MD#### AHBFR ####[facility] [address] [place] [address] [phone] lab Director: Albert Jennings MD Calcium [Mass/Vol] 8.5 mg/dL Low 8.6-10.4 [facility] Comment on above: Performed By: #### L ACTIC, MG, PT, VNCR, CBC, PTT, BMP, FIB, IOCAL ####[facility] [address] [place] [address] Lab Director: Boo Vinson MD#### AHBFR ####[facility] [address] [place] [address] [id number] Lab Director: Albert Jennings MD Chloride [Moles/Vol] 107 mmol/L Normal 98-107 [facility] Comment on above: Performed By: #### L ACTIC, MG, PT, VNCR, CBC, PTT, BMP, FIB, IOCAL ####[facility] Pilgpvdcqotm7276 [place] [address] Lab Director: Boo Vinson MD#### AHBFR ####[facility] [address] [place], [place] [id number] Lab Director: Albert Jennings MD CO2 [Moles/Vol] 27 mmol/L Normal 20-31 [facility] Comment on above: Performed By: #### L ACTIC, MG, PT, VNCR, CBC, PTT, BMP, FIB, IOCAL ####[facility] Wrfvhvjutedl4818 [place] [address] Lab Director: Boo Vinson MD#### AHBFR ####[facility] [address] [place] [address] [id number] Lab Director: Albert Jennings MD Creatinine [Mass/Vol] 0.6 mg/dL Low 0.70-1.20 [facility] Comment on above: Performed By: #### L ACTIC, MG, PT, VNCR, CBC, PTT, BMP, FIB, IOCAL ####[address] [phone] Lab Director: Boo Vinson MD#### AHBFR ####[facility] [address] [place] [address] [id number] Lab Director: Albert Jennings MD GFR/1.73 sq M.predicted among non-blacks MDRD (S/P/Bld) [Vol rate/Area] mL/min/{1.73_m2} Normal >60 [facility] Comment on above: Result Comment: Thes e [...] PT, VNCR, CBC, PTT, BMP, FIB, IOCAL ####[facility] [address] [place] [address] [id number] Lab Director: Boo Vinson MD#### AHBFR ####[facility] [address] [place] [address] [id number] Lab Director: Albert Jennings MD Glucose [Mass/Vol] 158 mg/dL High 74-99 [facility] Comment on above: Performed By: #### L ACTIC, MG, PT, VNCR, CBC, PTT, BMP, FIB, IOCAL ####[facility] [address]yscl[address]ltr[address]654 [place] [address] Lab Director: Boo Vinson MD#### AHBFR ####[facility] [address] [place], [place] [id number] lab Director: Albert Jennings MD Potassium [Moles/Vol] 3.9 mmol/L Normal 3.7-5.3 [facility] Comment on above: Performed By: #### L ACTIC, MG, PT, VNCR, CBC, PTT, BMP, FIB, IOCAL ####[address] [address] Lab Director: Boo Vinson MD#### AHBFR ####[facility] Pk[address]hm[address] [place], [place] [phone] lab Director: Albert Jennings MD Sodium [Moles/Vol] 144 mmol/L Normal 136-145 [facility] Comment on above: Performed By: #### L ACTIC, MG, PT, VNCR, CBC, PTT, BMP, FIB, IOCAL ####[facility] [address]1405 [place] [address] Lab Director: Boo Vinson MD#### AHBFR ####[facility] [address] [place], [place] [phone] Lab Director: Albert Jennings MD Urea nitrogen [Mass/Vol] 22 mg/dL High 6-20 [facility] Comment on above: Performed By: #### L ACTIC, MG, PT, VNCR, CBC, PTT, BMP, FIB, IOCAL ####[facility] Hyqxihewgfgg3141 [place] [address] Lab Director: Boo Vinson MD#### AHBFR ####[facility] [address] [place] [address] [phone] Lab Director: Albert Jennings MD Anion gap [Moles/Vol] 9 mmol/L Normal 9-16 [facility] Comment on above: Performed By: #### P TT, LIVP, IOCAL, MG, BMP, PT, FIB, CBC, LACTIC ####[facility] [address] [place] [address] Lab Director: Boo Vinson MD Calcium [Mass/Vol] 8.2 mg/dL Low 8.6-10.4 [facility] Comment on above: Performed By: #### P TT, LIVP, IOCAL, MG, BMP, PT, FIB, CBC, LACTIC ####[facility] [address] [place] [address] Lab Director: Boo Vinson MD Chloride [Moles/Vol] 108 mmol/L High 98-107 [facility] Comment on above: Performed By: #### P TT, LIVP, IOCAL, MG, BMP, PT, FIB, CBC, LACTIC ####[facility] [address] [place] [address] Lab Director: Boo Vinson MD CO2 [Moles/Vol] 27 mmol/L Normal 20-31 [facility] Comment on above: Performed By: #### P TT, LIVP, IOCAL, MG, BMP, PT, FIB, CBC, LACTIC ####[facility] Vbngakshwbot7418 [place] [address] Lab Director: Boo Vinson MD Creatinine [Mass/Vol] 0.6 mg/dL Low 0.70-1.20 [facility] Comment on above: Performed By: #### P TT, LIVP, IOCAL, MG, BMP, PT, FIB, CBC, LACTIC ####[address] [address] Lab Director: Boo Vinson MD GFR/1.73 sq M.predicted among non-blacks MDRD (S/P/Bld) [Vol rate/Area] mL/min/{1.73_m2} Normal >60 [facility] Comment on above: Result Comment: Thes e [...] IOCAL, MG, BMP, PT, FIB, CBC, LACTIC ####[address] [address] Lab Director: Boo Vinson MD Glucose [Mass/Vol] 135 mg/dL High 74-99 [facility] Comment on above: Performed By: #### P TT, LIVP, IOCAL, MG, BMP, PT, FIB, CBC, LACTIC ####[address] [address] lab Director: Boo Vinson MD Potassium [Moles/Vol] 3.5 mmol/L Low 3.7-5.3 [facility] Comment on above: Performed By: #### P TT, LIVP, IOCAL, MG, BMP, PT, FIB, CBC, LACTIC ####[address] [address] Lab Director: Boo Vinson MD Sodium [Moles/Vol] 144 mmol/L Normal 136-145 [facility] Comment on above: Performed By: #### P TT, LIVP, IOCAL, MG, BMP, PT, FIB, CBC, LACTIC ####[address] [phone] lab Director: Boo Vinson MD Urea nitrogen [Mass/Vol] 23 mg/dL High 6-20 [facility] Comment on above: Performed By: #### P TT, LIVP, IOCAL, MG, BMP, PT, FIB, CBC, LACTIC ####[facility] [address] [place] [address] [id number] lab Director: Boo Vinson MD CBCon 11-08-2023 Erythrocyte distribution width (RBC) [Ratio] 16.8 % High 11.8-14.4 [facility] Comment on above: Performed By: #### L IVP, CBC, IOCAL, PTT, FIB, MG, BMP, PT, LACTIC ####[facility] [address] [place] [address] lab Director: Boo Vinson MD Hematocrit (Bld) [Volume fraction] 23.2 % Low 40.7-50.3 [facility] Comment on above: Performed By: #### L IVP, CBC, IOCAL, PTT, FIB, MG, BMP, PT, LACTIC ####[facility] [address] [place] [address] lab Director: Boo Vinson MD Hemoglobin (Bld) [Mass/Vol] 7.1 g/dL Low 13.0-17.0 [facility] Comment on above: Performed By: #### L IVP, CBC, IOCAL, PTT, FIB, MG, BMP, PT, LACTIC ####[facility] Nfvbypayvmxx3833 [place] [address] Lab Director: Boo Vinson MD MCH (RBC) [Entitic mass] 29.5 pg Normal 25.2-33.5 [facility] Comment on above: Performed By: #### L IVP, CBC, IOCAL, PTT, FIB, MG, BMP, PT, LACTIC ####[facility] Foanzufzoqmd8992 [place] [address] Lab Director: Boo Vinson MD MCHC (RBC) [Mass/Vol] 30.6 g/dL Normal 28.4-34.8 [facility] Comment on above: Performed By: #### L IVP, CBC, IOCAL, PTT, FIB, MG, BMP, PT, LACTIC ####[place] [address] [place] [address] Lab Director: Boo Vinson MD MCV (RBC) [Entitic vol] 96.3 fL Normal 82.6-102.9 [facility] Comment on above: Performed By: #### L IVP, CBC, IOCAL, PTT, FIB, MG, BMP, PT, LACTIC ####[address] [address])[phone] Director: Boo Vinson MD NRBC Automated 0.6 per 100 WBC High 0.0 [facility] Comment on above: Performed By: #### L IVP, CBC, IOCAL, PTT, FIB, MG, BMP, PT, LACTIC ####[address] [address])[phone] Director: Boo Vinson MD Platelet mean volume (Bld) [Entitic vol] 11.1 fL Normal 8.1-13.5 [facility] Comment on above: Performed By: #### L IVP, CBC, IOCAL, PTT, FIB, MG, BMP, PT, LACTIC ####[address] [phone] Director: Boo Vinson MD Platelets (Bld) [#/Vol] 203 10*3/uL Normal 138-453 [facility] Comment on above: Performed By: #### L IVP, CBC, IOCAL, PTT, FIB, MG, BMP, PT, LACTIC ####[address] [phone] Director: Boo Vinson MD RBC (Bld) [#/Vol] 2.41 10*6/uL Low 4.21-5.77 [facility] Comment on above: Performed By: #### L IVP, CBC, IOCAL, PTT, FIB, MG, BMP, PT, LACTIC ####[facility] Mocomkjepnpc0266 [place], [place] [phone] Lab Director: Boo Vinson MD WBC (Bld) [#/Vol] 12.7 10*3/uL High 3.5-11.3 [facility] Comment on above: Performed By: #### L IVP, CBC, IOCAL, PTT, FIB, MG, BMP, PT, LACTIC ####[facility] [address] [place] [address] Lab Director: Boo Vinson MD Erythrocyte distribution width (RBC) [Ratio] 16.8 % High 11.8-14.4 [facility] Comment on above: Performed By: #### L ACTIC, MG, PT, VNCR, CBC, PTT, BMP, FIB, IOCAL ####[facility] [address] [place] [address] Lab Director: Boo Vinson MD#### AHBFR ####[facility] [address] [place] [address] [phone] lab Director: Albert Jennings MD Hematocrit (Bld) [Volume fraction] 25.6 % Low 40.7-50.3 [facility] Comment on above: Performed By: #### L ACTIC, MG, PT, VNCR, CBC, PTT, BMP, FIB, IOCAL ####[facility] Edpvfgwiyygk6170 [place] [address] Lab Director: Boo Vinson MD#### AHBFR ####[facility] [address] [place] [address] lab Director: Albert Jennings MD Hemoglobin (Bld) [Mass/Vol] 7.7 g/dL Low 13.0-17.0 [facility] Comment on above: Performed By: #### L ACTIC, MG, PT, VNCR, CBC, PTT, BMP, FIB, IOCAL ####[facility] Axoswjsbqrdf0221 [place] [address] Lab Director: Boo Vinson MD#### AHBFR ####[facility] [address] [place] [address] [id number] Lab Director: Albert Jennings MD MCH (RBC) [Entitic mass] 28.8 pg Normal 25.2-33.5 [facility] Comment on above: Performed By: #### L ACTIC, MG, PT, VNCR, CBC, PTT, BMP, FIB, IOCAL ####[facility] [address] [place] [address] Lab Director: Boo Vinson MD#### AHBFR ####[address] [phone] Lab Director: Albert Jennings MD MCHC (RBC) [Mass/Vol] 30.1 g/dL Normal 28.4-34.8 [facility] Comment on above: Performed By: #### L ACTIC, MG, PT, VNCR, CBC, PTT, BMP, FIB, IOCAL ####[facility] [address] [place] [address] Lab Director: Boo Vinson MD#### AHBFR ####[facility] [address] [place] [address] [phone] Lab Director: Albert Jennings MD MCV (RBC) [Entitic vol] 95.9 fL Normal 82.6-102.9 [facility] Comment on above: Performed By: #### L ACTIC, MG, PT, VNCR, CBC, PTT, BMP, FIB, IOCAL ####[facility] [address] [place] [address] Lab Director: Boo Vinson MD#### AHBFR ####[facility] [address]rs[address] [place] [address] Lab Director: Albert Jennings MD NRBC Automated 0.8 per 100 WBC High 0.0 [facility] Comment on above: Performed By: #### L ACTIC, MG, PT, VNCR, CBC, PTT, BMP, FIB, IOCAL ####[address] [address] Lab Director: Boo Vinson MD#### AHBFR ####[facility] [address] [place] [address] Lab Director: Albert Jennings MD Platelet mean volume (Bld) [Entitic vol] 10.9 fL Normal 8.1-13.5 [facility] Comment on above: Performed By: #### L ACTIC, MG, PT, VNCR, CBC, PTT, BMP, FIB, IOCAL ####[place] [address] Lab Director: Boo Vinson MD#### AHBFR ####[address] [address] Lab Director: Albert Jennings MD Platelets (Bld) [#/Vol] 241 10*3/uL Normal 138-453 [facility] Comment on above: Performed By: #### L ACTIC, MG, PT, VNCR, CBC, PTT, BMP, FIB, IOCAL ####[facility] [address] [place] [address] Lab Director: Boo Vinson MD#### AHBFR ####[facility] [address] [place] [address] Lab Director: Albert Jennings MD RBC (Bld) [#/Vol] 2.67 10*6/uL Low 4.21-5.77 [facility] Comment on above: Performed By: #### L ACTIC, MG, PT, VNCR, CBC, PTT, BMP, FIB, IOCAL ####[facility] [address]4163 [place] [address] Lab Director: Boo Vinson MD#### AHBFR ####[facility] [address] [place] [address] [id number] Lab Director: Albert Jennings MD WBC (Bld) [#/Vol] 17.2 10*3/uL High 3.5-11.3 [facility] Comment on above: Performed By: #### L ACTIC, MG, PT, VNCR, CBC, PTT, BMP, FIB, IOCAL ####[facility] [address] [place] [address] Lab Director: Boo Vinson MD#### AHBFR ####[facility] [address] [place] [address] [id number] Lab Director: Albert Jennings MD Calcium, Ionicon 11-08-2023 Calcium [Moles/Vol] 1.15 mmol/L Normal 1.13-1.33 [facility] Comment on above: Performed By: #### L IVP, CBC, IOCAL, PTT, FIB, MG, BMP, PT, LACTIC ####[facility] [address] [place] [address] Lab Director: Boo Vinson MD Calcium [Moles/Vol] 1.12 mmol/L Low 1.13-1.33 [facility] Comment on above: Performed By: #### L ACTIC, MG, PT, VNCR, CBC, PTT, BMP, FIB, IOCAL ####[facility] F[address]htizpjlquw0842 [place] [address] Lab Director: Boo Vinson MD#### AHBFR ####[facility] [address] [place] [address] [id number] Lab Director: Albert Jennings MD Fibrinogenon 11-08-2023 Fibrinogen 137 mg/dL Low 203-521 [facility] Comment on above: Performed By: #### L IVP, CBC, IOCAL, PTT, FIB, MG, BMP, PT, LACTIC ####[facility] Pxcbvsvmtpmp5278 [place] [address] Lab Director: Boo Vinson MD Fibrinogen 152 mg/dL Low 203-521 [facility] Comment on above: Performed By: #### L ACTIC, MG, PT, VNCR, CBC, PTT, BMP, FIB, IOCAL ####[facility] [address] [place] [address] [phone] Director: oBo Vinson MD#### AHBFR ####[address] [phone] Lab Director: Albert Jennings MD Fibrinogen Panelon 4 Fibrinogen 191 mg/dL Normal 150-430 [facility] Comment on above: Performed By: #### C DP, CP, PT ####[address] [address] Lab Director: Boo Vinson MD#### ADYSF ####[facility] [address] [place] [address] [phone] Lab Director: Albert Jennings MD Fibrinogen Antigen 278 mg/dL Normal 149-353 [facility] Comment on above: Result Comment: (NOT E)INTERPRETIVE INFORMATION: Fibrinogen AgThis test was developed and its performance characteristicsdetermined by [facility]. It has not been cleared orapproved by the U.[place]. Food and Drug Administration. This test wasperformed in a CLIA-certified laboratory and is intended forclinical purposes. Performed By: #### C DP, CP, PT ####[address] [address] Lab Director: Boo Vinson MD#### ADYSF ####[facility] [address] [place] [address] [id number] Lab Director: Albert Jennings MD Fibrinogen Ratio 1.46 ratio High 0.59-1.23 [facility] Comment on above: Result Comment: (NOT E)INTERPRETIVE INFORMATION: Fibrinogen Antigen/Functional RatioA ratio of greater than 1.23 is suggestive of a dysfibrogenemia.Performed By: [facility] [address] [place] [address] 66268Wntojvccwp Director: Edgardo Abdullahi MD, PhDCLIA Number: [id number] Performed By: #### C DP, CP, PT ####[address] [id number] lab Director: Boo Vinson MD#### ADYSF ####[address] [phone] lab Director: Albert Jennings MD Glucose (POC)on 11-08-2023 Glucose [Mass/Vol] 171 mg/dL High 74-100 [facility] Glucose [Mass/Vol] 153 mg/dL High 74-100 [facility] Glucose [Mass/Vol] 136 mg/dL High 74-100 [facility] Hgb Free, Plasmaon Hgb Free, Plasma 2.5 mg/dL Normal 0.0-9.7 [facility] Comment on above: Result Comment: (NOT E)Performed By: [facility] [address] [place] [address] 50737Umrnygfoxy Director: Edgardo Abdullahi MD, PhDCLIA Number: [id number] Performed By: #### A T3A ####[address] [phone] Lab Director: Boo Vinson MD#### AHBFR ####[address] [phone] lab Director: Albert Jennings MD Lactic Acidon 11-08-2023 Lactic Acid,Whole Bl 1.1 mmol/L Normal 0.7-2.1 [facility] Comment on above: Performed By: #### L IVP, CBC, IOCAL, PTT, FIB, MG, BMP, PT, LACTIC ####[facility] L[address]kmmgsdxpg4119 [place] [address] Lab Director: Boo Vinson MD Lactic Acid,Whole Bl 0.9 mmol/L Normal 0.7-2.1 [facility] Comment on above: Performed By: #### L ACTIC, MG, PT, VNCR, CBC, PTT, BMP, FIB, IOCAL ####[facility] [address] [place] [address] Lab Director: Boo Vinson MD#### [facility] ####[address] [address] lab Director: Albert Jennings MD Liver Profileon 11-08-2023 Albumin [Mass/Vol] 3.5 g/dL Normal 3.5-5.2 [facility] Comment on above: Performed By: #### L IVP, CBC, IOCAL, PTT, FIB, MG, BMP, PT, LACTIC ####[facility] [address] [place] [address] Lab Director: Boo Vinson MD Albumin/Glob Ratio 2.0 Normal 1.0-2.5 [facility] Comment on above: Performed By: #### L IVP, CBC, IOCAL, PTT, FIB, MG, BMP, PT, LACTIC ####[facility] [address] [place] [address] Lab Director: Boo Vinson MD Alkaline Phos 84 U/L Normal 40-129 [facility] Comment on above: Performed By: #### L IVP, CBC, IOCAL, PTT, FIB, MG, BMP, PT, LACTIC ####[facility] Ccmeldqmlxsg2724 [place] [address] Lab Director: Boo Vinson MD ALT [Catalytic activity/Vol] 908 U/L High 10-50 [facility] Comment on above: Performed By: #### L IVP, CBC, IOCAL, PTT, FIB, MG, BMP, PT, LACTIC ####[address] [place] [address] Lab Director: Boo Vinson MD AST [Catalytic activity/Vol] 135 U/L [facility] 1050 [facility] Comment on above: Performed By: #### L IVP, CBC, IOCAL, PTT, FIB, MG, BMP, PT, LACTIC ####[address] [address])[phone] Director: Boo Vinson MD Bilirubin [Mass/Vol] 0.8 mg/dL Normal 0.00-1.20 [facility] Comment on above: Performed By: #### L IVP, CBC, IOCAL, PTT, FIB, MG, BMP, PT, LACTIC ####[address] [address])[phone] Director: Boo Vinson MD Bilirubin, Indirect 0.4 mg/dL Normal 0.0-1.0 [facility] Comment on above: Performed By: #### L IVP, CBC, IOCAL, PTT, FIB, MG, BMP, PT, LACTIC ####[address] [address] Lab Director: Boo Vinson MD Bilirubin.indirect [Mass/Vol] 0.4 mg/dL High 0.00-0.30 [facility] Comment on above: Performed By: #### L IVP, CBC, IOCAL, PTT, FIB, MG, BMP, PT, LACTIC ####[facility] [address] [place], [place] [address])[phone] Director: Boo Vinson MD Globulin (S) [Mass/Vol] 1.7 g/dL Normal [facility] Comment on above: Performed By: #### L IVP, CBC, IOCAL, PTT, FIB, MG, BMP, PT, LACTIC ####[facility] [address]xwz[address]wil[address]my6[address] [place], [place] [phone] Director: Boo Vinson MD Protein [Mass/Vol] 5.2 g/dL Low 6.6-8.7 [facility] Comment on above: Performed By: #### L IVP, CBC, IOCAL, PTT, FIB, MG, BMP, PT, LACTIC ####[facility] Ecznv[address]cpytsc50[address] [place], [place] [phone] Director: Boo Vinson MD ALT [Catalytic activity/Vol] 1090 U/L High 10-50 [facility] Comment on above: Performed By: #### P TT, LIVP, IOCAL, MG, BMP, PT, FIB, CBC, LACTIC ####[address] [address])[phone] Director: Boo Vinson MD Albumin [Mass/Vol] 3.3 g/dL Low 3.5-5.2 [facility] Comment on above: Performed By: #### P TT, LIVP, IOCAL, MG, BMP, PT, FIB, CBC, LACTIC ####[facility] [address]vod[address]zqbcn35[address] [place], [place] [phone] Director: Boo Vinson MD Albumin/Glob Ratio 2.0 Normal 1.0-2.5 [facility] Comment on above: Performed By: #### P TT, LIVP, IOCAL, MG, BMP, PT, FIB, CBC, LACTIC ####[facility] [id number] [place], [place] [address])[phone] Director: Boo Vinson MD Alkaline Phos 76 U/L Normal 40-129 [facility] Comment on above: Performed By: #### P TT, LIVP, IOCAL, MG, BMP, PT, FIB, CBC, LACTIC ####[facility] [id number] [place] [address] Lab Director: Boo Vinson MD AST [Catalytic activity/Vol] 216 U/L High 10-50 [facility] Comment on above: Performed By: #### P TT, LIVP, IOCAL, MG, BMP, PT, FIB, CBC, LACTIC ####[address] [address] Lab Director: Boo Vinson MD Bilirubin [Mass/Vol] 0.7 mg/dL Normal 0.00-1.20 [facility] Comment on above: Performed By: #### P TT, LIVP, IOCAL, MG, BMP, PT, FIB, CBC, LACTIC ####[place], [place] [address])[phone] Director: Boo Vinson MD Bilirubin, Indirect 0.3 mg/dL Normal 0.0-1.0 [facility] Comment on above: Performed By: #### P TT, LIVP, IOCAL, MG, BMP, PT, FIB, CBC, LACTIC ####[place], [place] [address] [facility])[phone] Director: Boo Vinson MD Bilirubin.indirect [Mass/Vol] 0.4 mg/dL High 0.00-0.30 [facility] Comment on above: Performed By: #### P TT, LIVP, IOCAL, MG, BMP, PT, FIB, CBC, LACTIC ####[place] [address] Lab Director: Boo Vinson MD Globulin (S) [Mass/Vol] 2.0 g/dL Normal [facility] Comment on above: Performed By: #### P TT, LIVP, IOCAL, MG, BMP, PT, FIB, CBC, LACTIC ####[address] [address])[phone] Director: Boo Vinson MD Protein [Mass/Vol] 5.3 g/dL Low 6.6-8.7 [facility] Comment on above: Performed By: #### P TT, LIVP, IOCAL, MG, BMP, PT, FIB, CBC, LACTIC ####[facility] [address] [place] [address] Lab Director: Boo Vinson MD Magnesiumon 11-08-2023 Magnesium [Mass/Vol] 2.3 mg/dL Normal 1.6-2.6 [facility] Comment on above: Performed By: #### L IVP, CBC, IOCAL, PTT, FIB, MG, BMP, PT, LACTIC ####[facility] [address] [place] [address] Lab Director: Boo Vinson MD Magnesium [Mass/Vol] 2.2 mg/dL Normal 1.6-2.6 [facility] Comment on above: Performed By: #### L ACTIC, MG, PT, VNCR, CBC, PTT, BMP, FIB, IOCAL ####[facility] [address] [place] [address] Lab Director: Boo Vinson MD#### [facility] ####[address] [phone] Lab Director: Albert Jennings MD Magnesium [Mass/Vol] 2.3 mg/dL Normal 1.6-2.6 [facility] Comment on above: Performed By: #### P TT, LIVP, IOCAL, MG, BMP, PT, FIB, CBC, LACTIC ####[facility] [address] [place] [address] Lab Director: Boo Vinson MD PTon 11-08-2023 INR Coag (PPP) [Relative time] 1.5 {INR} Normal [facility] Comment on above: Result Comment: Ther apeutic Range: Moderate Anticoagulant Intensity: INR = 2.0-3.0 High Anticoagulant Intensity: INR = 2.5-3.5 Performed By: #### L IVP, CBC, IOCAL, PTT, FIB, MG, BMP, PT, LACTIC ####[facility] [address] [place] [address] Lab Director: Boo Vinson MD PT Coag (PPP) [Time] 17.6 s High 11.7-14.9 [facility] Comment on above: Performed By: #### L IVP, CBC, IOCAL, PTT, FIB, MG, BMP, PT, LACTIC ####[facility] [address] [place] [address] Lab Director: Boo Vinson MD INR Coag (PPP) [Relative time] 1.6 {INR} Normal [facility] Comment on above: Result Comment: Ther apeutic Range: Moderate Anticoagulant Intensity: INR = 2.0-3.0 High Anticoagulant Intensity: INR = 2.5-3.5 Performed By: #### L ACTIC, MG, PT, VNCR, CBC, PTT, BMP, FIB, IOCAL ####[facility] [address] [place] [address] Lab Director: Boo Vinson MD#### AHBFR ####[facility] [address] [place] [address] lab Director: Albert Jennings MD PT Coag (PPP) [Time] 18.7 s High 11.7-14.9 [facility] Comment on above: Performed By: #### L ACTIC, MG, PT, VNCR, CBC, PTT, BMP, FIB, IOCAL ####[facility] [address] [place] [address] Lab Director: Boo Vinson MD#### AHBFR ####[facility] [address] [place] [address] [id number] Lab Director: Albert Jennings MD Vancomycin,Randomon 11-08-19 24 Vancomycin 17.8 ug/mL Normal 5.0-40.0 [facility] Comment on above: Result Comment: High er trough serum vancomycin concentrations of 15-20 ug/mL are recommended for complicated infections such as bacteremia, endocarditis, osteomyelitis, meningitis, and hospital acquired pneumonia. Performed By: #### L ACTIC, MG, PT, VNCR, CBC, PTT, BMP, FIB, IOCAL ####[facility] [address] [place], [place] [id number] lab Director: Boo Vinson MD#### AHBFR ####[facility] [address] [place] [address] Lab Director: Albert Jennings MD XR CHEST PORTABLEon 11-08-19 XR CHEST PORTABLE Normal [facility] XR CHEST PORTABLE Normal [facility] Sharee 11-07-2023 ACT 174 sec High 79-149 [facility] ACT 185 sec High 79-149 [facility] APTTon 11-07-2023 aPTT Coag (Bld) [Time] 53.9 s High 23.0-36.5 [facility] Comment on above: Result Comment: IV H eparin Therapy Range:66.0-92.0 sec Performed By: #### P TT, LIVP, IOCAL, MG, BMP, PT, FIB, CBC, LACTIC ####[facility] [address] [place] [address] Lab Director: Boo Vinson MD aPTT Coag (Bld) [Time] 50.6 s High 23.0-36.5 [facility] Comment on above: Result Comment: IV H eparin Therapy Range:66.0-92.0 sec Performed By: #### P TT, PT, MG, CBC, LACTIC, BMP, FIB, IOCAL ####[facility] [address] [place] [address] Lab Director: Boo Vinson MD aPTT Coag (Bld) [Time] 51.0 s High 23.0-36.5 [facility] Comment on above: Result Comment: IV H eparin Therapy Range:66.0-92.0 sec Performed By: #### C BC, FIB, LACTIC, PT, MG, IOCAL, LIVP, BMP, PTT ####[facility] [address] [place] [address] Lab Director: Boo Vinson MD aPTT Coag (Bld) [Time] 55.1 s High 23.0-36.5 [facility] Comment on above: Result Comment: IV H eparin Therapy Range:66.0-92.0 sec Performed By: #### B MP, MG, PTT, PT, CBC, FIB, LACTIC, IOCAL ####[facility] [address] [place], [place] 1985508 Lab Director: Boo Vinson MD aPTT Coag (Bld) [Time] 53.9 s High 23.0-36.5 [facility] Comment on above: Result Comment: IV H eparin Therapy Range:66.0-92.0 sec Performed By: #### B MP, FIB, LIVP, LACTIC, MG, PTT, PT, IOCAL, CBC ####[facility] [address] [place], [place] [id number] lab Director: Boo Vinson MD Arterial Bld Gas,POCon 11-06 Korey Test NOT APPLICABLE Normal [facility] FIO2 40.0 Normal [facility] HCO3 (Bld) [Moles/Vol] 29.0 mmol/L High 21.0-28.0 [facility] O2 Device Adult Ventilator Normal [facility] Oxygen saturation in Blood 98.7 % High 94.0-98.0 [facility] pCO2, Arterial 40.4 mm Hg Normal 35.0-48.0 [facility] pH, Arterial 7.464 High 7.350-7.450 [facility] pO2, Arterial 114.9 mm Hg High 83.0-108.0 [facility] Positive Base Excess (calc) 4.9 mmol/L High 0.0-3.0 [facility] Site Drawn Arterial Line Normal [facility] FIO2 40.0 Normal [facility] HCO3 (Bld) [Moles/Vol] 26.7 mmol/L Normal 21.0-28.0 [facility] Mode of Delivery Pressure Control Normal [facility] Oxygen saturation in Blood 97.7 % Normal 94.0-98.0 [facility] pCO2, Arterial 36.9 mm Hg Normal 35.0-48.0 [facility] pH, Arterial 7.468 High 7.350-7.450 [facility] pO2, Arterial 92.0 mm Hg Normal 83.0-108.0 [facility] Positive Base Excess (calc) 2.8 mmol/L Normal 0.0-3.0 [facility] Site Drawn Right Radial Artery Normal [facility] HCO3 (Bld) [Moles/Vol] 27.5 mmol/L Normal 21.0-28.0 [facility] pCO2, Arterial 40.8 mm Hg Normal 35.0-48.0 [facility] pH, Arterial 7.437 Normal 7.350-7.450 [facility] HCO3 (Bld) [Moles/Vol] 27.4 mmol/L Normal 21.0-28.0 [facility] Oxygen saturation in Blood 97.3 % Normal 94.0-98.0 [facility] pCO2, Arterial 40.6 mm Hg Normal 35.0-48.0 [facility] pH, Arterial 7.436 Normal 7.350-7.450 [facility] pO2, Arterial 91.3 mm Hg Normal 83.0-108.0 [facility] Positive Base Excess (calc) 2.9 mmol/L Normal 0.0-3.0 [facility] Positive Base Excess (calc) 3.1 mmol/L High 0.0-3.0 [facility] Korey Test NOT APPLICABLE Normal [facility] FIO2 40.0 Normal [facility] HCO3 (Bld) [Moles/Vol] 28.4 mmol/L High 21.0-28.0 [facility] Mode of Delivery Pressure Control Normal [facility] O2 Device Adult Ventilator Normal [facility] Oxygen saturation in Blood 98.6 % High 94.0-98.0 [facility] pCO2, Arterial 42.8 mm Hg Normal 35.0-48.0 [facility] pH, Arterial 7.429 Normal 7.350-7.450 [facility] pO2, Arterial 115.7 mm Hg High 83.0-108.0 [facility] Positive Base Excess (calc) 3.7 mmol/L High 0.0-3.0 [facility] Site Drawn Arterial Line Normal [facility] Korey Test NOT APPLICABLE Normal [facility] FIO2 40.0 Normal [facility] HCO3 (Bld) [Moles/Vol] 28.2 mmol/L High 21.0-28.0 [facility] Mode of Delivery Pressure Control Normal [facility] O2 Device Adult Ventilator Normal [facility] Oxygen saturation in Blood 98.6 % High 94.0-98.0 [facility] pCO2, Arterial 42.1 mm Hg Normal 35.0-48.0 [facility] pH, Arterial 7.434 Normal 7.350-7.450 [facility] pO2, Arterial 115.2 mm Hg High 83.0-108.0 [facility] Positive Base Excess (calc) 3.6 mmol/L High 0.0-3.0 [facility] Site Drawn Arterial Line Normal [facility] Basic Metabolic Profon 11-06 Anion gap [Moles/Vol] 7 mmol/L Low 9-16 [facility] Comment on above: Performed By: #### P TT, PT, MG, CBC, LACTIC, BMP, FIB, IOCAL ####[place] [address] [place] [id number] Lab Director: Boo Vinson MD Calcium [Mass/Vol] 8.5 mg/dL Low 8.6-10.4 [facility] Comment on above: Performed By: #### P TT, PT, MG, CBC, LACTIC, BMP, FIB, IOCAL ####[place] [address] [place] [address] Lab Director: Boo Vinson MD Chloride [Moles/Vol] 108 mmol/L High 98-107 [facility] Comment on above: Performed By: #### P TT, PT, MG, CBC, LACTIC, BMP, FIB, IOCAL ####[address] [address] Lab Director: Boo Vinson MD CO2 [Moles/Vol] 28 mmol/L Normal 20-31 [facility] Comment on above: Performed By: #### P TT, PT, MG, CBC, LACTIC, BMP, FIB, IOCAL ####[address] [address] Lab Director: Boo Vinson MD Creatinine [Mass/Vol] 0.7 mg/dL Normal 0.70-1.20 [facility] Comment on above: Performed By: #### P TT, PT, MG, CBC, LACTIC, BMP, FIB, IOCAL ####[address] [address] Lab Director: Boo Vinson MD GFR/1.73 sq M.predicted among non-blacks MDRD (S/P/Bld) [Vol rate/Area] mL/min/{1.73_m2} Normal >60 [facility] Comment on above: Result Comment: Thes e [...] PT, MG, CBC, LACTIC, BMP, FIB, IOCAL ####[facility] [address] [place], [place] [address])[phone] Director: Boo Vinson MD Glucose [Mass/Vol] 140 mg/dL High 74-99 [facility] Comment on above: Performed By: #### P TT, PT, MG, CBC, LACTIC, BMP, FIB, IOCAL ####[facility] [address] [place] [address])[phone] Director: Boo Vinson MD Potassium [Moles/Vol] 4.0 mmol/L Normal 3.7-5.3 [facility] Comment on above: Performed By: #### P TT, PT, MG, CBC, LACTIC, BMP, FIB, IOCAL ####[address] [address])[phone] Director: Boo Vinson MD Sodium [Moles/Vol] 143 mmol/L Normal 136-145 [facility] Comment on above: Performed By: #### P TT, PT, MG, CBC, LACTIC, BMP, FIB, IOCAL ####[facility] [address] [place] [address])[phone] Director: Boo Vinson MD Urea nitrogen [Mass/Vol] 24 mg/dL High 6-20 [facility] Comment on above: Performed By: #### P TT, PT, MG, CBC, LACTIC, BMP, FIB, IOCAL ####[facility] [address] [place], [place] [address])[phone] Director: Boo Vinson MD Anion gap [Moles/Vol] 11 mmol/L Normal 9-16 [facility] Comment on above: Performed By: #### C BC, FIB, LACTIC, PT, MG, IOCAL, LIVP, BMP, PTT ####[facility] [address] [place] [address] lab Director: Boo Vinson MD Calcium [Mass/Vol] 8.5 mg/dL Low 8.6-10.4 [facility] Comment on above: Performed By: #### C BC, FIB, LACTIC, PT, MG, IOCAL, LIVP, BMP, PTT ####[facility] [place] [address] lab Director: Boo Vinson MD Chloride [Moles/Vol] 108 mmol/L High 98-107 [facility] Comment on above: Performed By: #### C BC, FIB, LACTIC, PT, MG, IOCAL, LIVP, BMP, PTT ####[facility] [address] [place] [address] lab Director: Boo Vinson MD CO2 [Moles/Vol] 25 mmol/L Normal 20-31 [facility] Comment on above: Performed By: #### C BC, FIB, LACTIC, PT, MG, IOCAL, LIVP, BMP, PTT ####[facility] [address] [place] [address] lab Director: Boo Vinson MD Creatinine [Mass/Vol] 0.7 mg/dL Normal 0.70-1.20 [facility] Comment on above: Performed By: #### C BC, FIB, LACTIC, PT, MG, IOCAL, LIVP, BMP, PTT ####[address] [address] Lab Director: Boo Vinson MD GFR/1.73 sq M.predicted among non-blacks MDRD (S/P/Bld) [Vol rate/Area] mL/min/{1.73_m2} Normal >60 [facility] Comment on above: Result Comment: Thes e [...] LACTIC, PT, MG, IOCAL, LIVP, BMP, PTT ####[facility] [address] [place], [place] [address])[phone] Director: Boo Vinson MD Glucose [Mass/Vol] 189 mg/dL High 74-99 [facility] Comment on above: Performed By: #### C BC, FIB, LACTIC, PT, MG, IOCAL, LIVP, BMP, PTT ####[facility] [address] [place], [place] [address])[phone] Director: Boo Vinson MD Potassium [Moles/Vol] 3.6 mmol/L Low 3.7-5.3 [facility] Comment on above: Performed By: #### C BC, FIB, LACTIC, PT, MG, IOCAL, LIVP, BMP, PTT ####[facility] [address] [place] [address])[phone] Director: Boo Vinson MD Sodium [Moles/Vol] 144 mmol/L Normal 136-145 [facility] Comment on above: Performed By: #### C BC, FIB, LACTIC, PT, MG, IOCAL, LIVP, BMP, PTT ####[address] [address])[phone] Director: Boo Vinson MD Urea nitrogen [Mass/Vol] 24 mg/dL High 6-20 [facility] Comment on above: Performed By: #### C BC, FIB, LACTIC, PT, MG, IOCAL, LIVP, BMP, PTT ####[facility] [address] [place], [place] [address])[phone] Director: Boo Vinson MD Anion gap [Moles/Vol] 9 mmol/L Normal 9-16 [facility] Comment on above: Performed By: #### B MP, MG, PTT, PT, CBC, FIB, LACTIC, IOCAL ####[facility] [address] [place] [address] Lab Director: Boo Vinson MD Calcium [Mass/Vol] 8.6 mg/dL Normal 8.6-10.4 [facility] Comment on above: Performed By: #### B MP, MG, PTT, PT, CBC, FIB, LACTIC, IOCAL ####[facility] [address] [place] [address])[phone] Director: Boo Vinson MD Chloride [Moles/Vol] 108 mmol/L High 98-107 [facility] Comment on above: Performed By: #### B MP, MG, PTT, PT, CBC, FIB, LACTIC, IOCAL ####[address] [address])[phone] Director: Boo Vinson MD CO2 [Moles/Vol] 27 mmol/L Normal 20-31 [facility] Comment on above: Performed By: #### B MP, MG, PTT, PT, CBC, FIB, LACTIC, IOCAL ####[facility] [address] [place] [address] Lab Director: Boo Vinson MD Creatinine [Mass/Vol] 0.7 mg/dL Normal 0.70-1.20 [facility] Comment on above: Performed By: #### B MP, MG, PTT, PT, CBC, FIB, LACTIC, IOCAL ####[address] [address])[phone] Director: Boo Vinson MD GFR/1.73 sq M.predicted among non-blacks MDRD (S/P/Bld) [Vol rate/Area] mL/min/{1.73_m2} Normal >60 [facility] Comment on above: Result Comment: Thes e [...] MG, PTT, PT, CBC, FIB, LACTIC, IOCAL ####[place] [address] [place], [place] [address])[phone] Director: Boo Vinson MD Glucose [Mass/Vol] 154 mg/dL High 74-99 [facility] Comment on above: Performed By: #### B MP, MG, PTT, PT, CBC, FIB, LACTIC, IOCAL ####[address] [address])[phone] Director: Boo Vinson MD Potassium [Moles/Vol] 3.9 mmol/L Normal 3.7-5.3 [facility] Comment on above: Performed By: #### B MP, MG, PTT, PT, CBC, FIB, LACTIC, IOCAL ####[facility] [address] [place] [address])[phone] Director: Boo Vinson MD Sodium [Moles/Vol] 144 mmol/L Normal 136-145 [facility] Comment on above: Performed By: #### B MP, MG, PTT, PT, CBC, FIB, LACTIC, IOCAL ####[address] [address])[phone] Director: Boo Vinson MD Urea nitrogen [Mass/Vol] 22 mg/dL High 6-20 [facility] Comment on above: Performed By: #### B MP, MG, PTT, PT, CBC, FIB, LACTIC, IOCAL ####[facility] [address] [place] [address])[phone] Director: Boo Vinson MD Anion gap [Moles/Vol] 11 mmol/L Normal 9-16 [facility] Comment on above: Performed By: #### B MP, FIB, LIVP, LACTIC, MG, PTT, PT, IOCAL, CBC ####[facility] [address] [place] [address] Lab Director: Boo Vinson MD Calcium [Mass/Vol] 8.2 mg/dL Low 8.6-10.4 [facility] Comment on above: Performed By: #### B MP, FIB, LIVP, LACTIC, MG, PTT, PT, IOCAL, CBC ####[facility] [address] [place], [place] [address])[phone] Director: Boo Vinson MD Chloride [Moles/Vol] 109 mmol/L High 98-107 [facility] Comment on above: Performed By: #### B MP, FIB, LIVP, LACTIC, MG, PTT, PT, IOCAL, CBC ####[address] [address] Lab Director: Boo Vinson MD CO2 [Moles/Vol] 27 mmol/L Normal 20-31 [facility] Comment on above: Performed By: #### B MP, FIB, LIVP, LACTIC, MG, PTT, PT, IOCAL, CBC ####[address] [address] Lab Director: Boo Vinson MD Creatinine [Mass/Vol] 0.7 mg/dL Normal 0.70-1.20 [facility] Comment on above: Performed By: #### B MP, FIB, LIVP, LACTIC, MG, PTT, PT, IOCAL, CBC ####[facility] [address] [place], [place] [address])[phone] Director: Boo Vinson MD GFR/1.73 sq M.predicted among non-blacks MDRD (S/P/Bld) [Vol rate/Area] mL/min/{1.73_m2} Normal >60 [facility] Comment on above: Result Comment: Thes e [...] LIVP, LACTIC, MG, PTT, PT, IOCAL, CBC ####[address] [address])[phone] Director: Boo Vinson MD Glucose [Mass/Vol] 152 mg/dL High 74-99 [facility] Comment on above: Performed By: #### B MP, FIB, LIVP, LACTIC, MG, PTT, PT, IOCAL, CBC ####[address] [address])[phone] Director: Boo Vinson MD Potassium [Moles/Vol] 3.4 mmol/L Low 3.7-5.3 [facility] Comment on above: Performed By: #### B MP, FIB, LIVP, LACTIC, MG, PTT, PT, IOCAL, CBC ####[address] [address])[phone] Director: Boo Vinson MD Sodium [Moles/Vol] 147 mmol/L High 136-145 [facility] Comment on above: Performed By: #### B MP, FIB, LIVP, LACTIC, MG, PTT, PT, IOCAL, CBC ####[address] [address])[phone] Director: Boo Vinson MD Urea nitrogen [Mass/Vol] 23 mg/dL High 6-20 [facility] Comment on above: Performed By: #### B MP, FIB, LIVP, LACTIC, MG, PTT, PT, IOCAL, CBC ####[address] [address])[phone] Director: Boo Vinson MD CBCon 11-07-2023 Erythrocyte distribution width (RBC) [Ratio] 16.0 % High 11.8-14.4 [facility] Comment on above: Performed By: #### P TT, LIVP, IOCAL, MG, BMP, PT, FIB, CBC, LACTIC ####[address] [address] Lab Director: Boo Vinson MD Hematocrit (Bld) [Volume fraction] 23.7 % Low 40.7-50.3 [facility] Comment on above: Performed By: #### P TT, LIVP, IOCAL, MG, BMP, PT, FIB, CBC, LACTIC ####[place], [place] [address])[phone] Director: Boo Vinson MD Hemoglobin (Bld) [Mass/Vol] 7.3 g/dL Low 13.0-17.0 [facility] Comment on above: Performed By: #### P TT, LIVP, IOCAL, MG, BMP, PT, FIB, CBC, LACTIC ####[address] [address] Lab Director: Boo Vinson MD MCH (RBC) [Entitic mass] 29.8 pg Normal 25.2-33.5 [facility] Comment on above: Performed By: #### P TT, LIVP, IOCAL, MG, BMP, PT, FIB, CBC, LACTIC ####[address] [address] Lab Director: Boo Vinsno MD MCHC (RBC) [Mass/Vol] 30.8 g/dL Normal 28.4-34.8 [facility] Comment on above: Performed By: #### P TT, LIVP, IOCAL, MG, BMP, PT, FIB, CBC, LACTIC ####[address] [address] Lab Director: Boo Vinson MD MCV (RBC) [Entitic vol] 96.7 fL Normal 82.6-102.9 [facility] Comment on above: Performed By: #### P TT, LIVP, IOCAL, MG, BMP, PT, FIB, CBC, LACTIC ####[address] [address])[phone] Director: Boo Vinson MD NRBC Automated 1.0 per 100 WBC High 0.0 [facility] Comment on above: Performed By: #### P TT, LIVP, IOCAL, MG, BMP, PT, FIB, CBC, LACTIC ####[facility] [address] [place], [place] [id number])[phone] Director: Boo Vinson MD Platelet mean volume (Bld) [Entitic vol] 10.7 fL Normal 8.1-13.5 [facility] Comment on above: Performed By: #### P TT, LIVP, IOCAL, MG, BMP, PT, FIB, CBC, LACTIC ####[address] [address])[phone] Director: Boo Vinson MD Platelets (Bld) [#/Vol] 219 10*3/uL Normal 138-453 [facility] Comment on above: Performed By: #### P TT, LIVP, IOCAL, MG, BMP, PT, FIB, CBC, LACTIC ####[address] [address] Lab Director: Boo Vinson MD RBC (Bld) [#/Vol] 2.45 10*6/uL Low 4.21-5.77 [facility] Comment on above: Performed By: #### P TT, LIVP, IOCAL, MG, BMP, PT, FIB, CBC, LACTIC ####[address] [phone] Director: Boo Vinson MD WBC (Bld) [#/Vol] 13.3 10*3/uL High 3.5-11.3 [facility] Comment on above: Performed By: #### P TT, LIVP, IOCAL, MG, BMP, PT, FIB, CBC, LACTIC ####[address] [address] [facility] Director: Boo Vinson MD Erythrocyte distribution width (RBC) [Ratio] 15.8 % High 11.8-14.4 [facility] Comment on above: Performed By: #### P TT, PT, MG, CBC, LACTIC, BMP, FIB, IOCAL ####[place] [address] [facility] Director: Boo Vinson MD Hematocrit (Bld) [Volume fraction] 24.4 % Low 40.7-50.3 [facility] Comment on above: Performed By: #### P TT, PT, MG, CBC, LACTIC, BMP, FIB, IOCAL ####[place], [place] [address])[phone] Director: Boo Vinson MD Hemoglobin (Bld) [Mass/Vol] 7.6 g/dL Low 13.0-17.0 [facility] Comment on above: Performed By: #### P TT, PT, MG, CBC, LACTIC, BMP, FIB, IOCAL ####[address] [address] Lab Director: Boo Vinson MD MCH (RBC) [Entitic mass] 29.7 pg Normal 25.2-33.5 [facility] Comment on above: Performed By: #### P TT, PT, MG, CBC, LACTIC, BMP, FIB, IOCAL ####[address] [address] Lab Director: Boo Vinson MD MCHC (RBC) [Mass/Vol] 31.1 g/dL Normal 28.4-34.8 [facility] Comment on above: Performed By: #### P TT, PT, MG, CBC, LACTIC, BMP, FIB, IOCAL ####[address] [phone] Director: Boo Vinson MD MCV (RBC) [Entitic vol] 95.3 fL Normal 82.6-102.9 [facility] Comment on above: Performed By: #### P TT, PT, MG, CBC, LACTIC, BMP, FIB, IOCAL ####[address] [phone] Director: Boo Vinson MD NRBC Automated 1.1 per 100 WBC High 0.0 [facility] Comment on above: Performed By: #### P TT, PT, MG, CBC, LACTIC, BMP, FIB, IOCAL ####[address] [address])[phone] Director: Boo Vinson MD Platelet mean volume (Bld) [Entitic vol] 11.0 fL Normal 8.1-13.5 [facility] Comment on above: Performed By: #### P TT, PT, MG, CBC, LACTIC, BMP, FIB, IOCAL ####[address] [address])[phone] Director: Boo Vinson MD Platelets (Bld) [#/Vol] 217 10*3/uL Normal 138-453 [facility] Comment on above: Performed By: #### P TT, PT, MG, CBC, LACTIC, BMP, FIB, IOCAL ####[address] [address])[phone] Director: Boo Vinson MD RBC (Bld) [#/Vol] 2.56 10*6/uL Low 4.21-5.77 [facility] Comment on above: Performed By: #### P TT, PT, MG, CBC, LACTIC, BMP, FIB, IOCAL ####[address] [phone] Director: Boo Vinson MD WBC (Bld) [#/Vol] 14.9 10*3/uL High 3.5-11.3 [facility] Comment on above: Performed By: #### P TT, PT, MG, CBC, LACTIC, BMP, FIB, IOCAL ####[facility] [address] [place] [address] Lab Director: Boo Vinson MD Erythrocyte distribution width (RBC) [Ratio] 15.7 % High 11.8-14.4 [facility] Comment on above: Performed By: #### C BC, FIB, LACTIC, PT, MG, IOCAL, LIVP, BMP, PTT ####[address] [address] Lab Director: Boo Vinson MD Hematocrit (Bld) [Volume fraction] 24.2 % Low 40.7-50.3 [facility] Comment on above: Performed By: #### C BC, FIB, LACTIC, PT, MG, IOCAL, LIVP, BMP, PTT ####[facility] [address] [place] [id number] Lab Director: Boo Vinson MD Hemoglobin (Bld) [Mass/Vol] 7.5 g/dL Low 13.0-17.0 [facility] Comment on above: Performed By: #### C BC, FIB, LACTIC, PT, MG, IOCAL, LIVP, BMP, PTT ####[facility] [address] [place] [address] Lab Director: Boo Vinson MD MCH (RBC) [Entitic mass] 29.5 pg Normal 25.2-33.5 [facility] Comment on above: Performed By: #### C BC, FIB, LACTIC, PT, MG, IOCAL, LIVP, BMP, PTT ####[facility] [address] [place] [address] Lab Director: Boo Vinson MD MCHC (RBC) [Mass/Vol] 31.0 g/dL Normal 28.4-34.8 [facility] Comment on above: Performed By: #### C BC, FIB, LACTIC, PT, MG, IOCAL, LIVP, BMP, PTT ####[address] [address])[phone] Director: Boo Vinson MD MCV (RBC) [Entitic vol] 95.3 fL Normal 82.6-102.9 [facility] Comment on above: Performed By: #### C BC, FIB, LACTIC, PT, MG, IOCAL, LIVP, BMP, PTT ####[place], [place] [address])[phone] Director: Boo Vinson MD NRBC Automated 0.9 per 100 WBC High 0.0 [facility] Comment on above: Performed By: #### C BC, FIB, LACTIC, PT, MG, IOCAL, LIVP, BMP, PTT ####[place], [place] [address])[phone] Director: Boo Vinson MD Platelet mean volume (Bld) [Entitic vol] 10.9 fL Normal 8.1-13.5 [facility] Comment on above: Performed By: #### C BC, FIB, LACTIC, PT, MG, IOCAL, LIVP, BMP, PTT ####[place], [place] [address])[phone] Director: Boo Vinson MD Platelets (Bld) [#/Vol] 219 10*3/uL Normal 138-453 [facility] Comment on above: Performed By: #### C BC, FIB, LACTIC, PT, MG, IOCAL, LIVP, BMP, PTT ####[address] [address])[phone] Director: Boo Vinson MD RBC (Bld) [#/Vol] 2.54 10*6/uL Low 4.21-5.77 [facility] Comment on above: Performed By: #### C BC, FIB, LACTIC, PT, MG, IOCAL, LIVP, BMP, PTT ####[address] [address] Lab Director: Boo Vinson MD WBC (Bld) [#/Vol] 13.9 10*3/uL High 3.5-11.3 [facility] Comment on above: Performed By: #### C BC, FIB, LACTIC, PT, MG, IOCAL, LIVP, BMP, PTT ####[address] [address] Lab Director: Boo Vinson MD Erythrocyte distribution width (RBC) [Ratio] 15.6 % High 11.8-14.4 [facility] Comment on above: Performed By: #### B MP, MG, PTT, PT, CBC, FIB, LACTIC, IOCAL ####[address] [address])[phone] Director: Boo Vinson MD Hematocrit (Bld) [Volume fraction] 24.6 % Low 40.7-50.3 [facility] Comment on above: Performed By: #### B MP, MG, PTT, PT, CBC, FIB, LACTIC, IOCAL ####[address] [address] Lab Director: Boo Vinson MD Hemoglobin (Bld) [Mass/Vol] 7.6 g/dL Low 13.0-17.0 [facility] Comment on above: Performed By: #### B MP, MG, PTT, PT, CBC, FIB, LACTIC, IOCAL ####[address] [address])[phone] Director: Boo Vinson MD MCH (RBC) [Entitic mass] 29.3 pg Normal 25.2-33.5 [facility] Comment on above: Performed By: #### B MP, MG, PTT, PT, CBC, FIB, LACTIC, IOCAL ####[facility] [address] [place], [place] [phone] Director: Boo Vinson MD MCHC (RBC) [Mass/Vol] 30.9 g/dL Normal 28.4-34.8 [facility] Comment on above: Performed By: #### B MP, MG, PTT, PT, CBC, FIB, LACTIC, IOCAL ####[address] [phone] Director: Boo Vinson MD MCV (RBC) [Entitic vol] 95.0 fL Normal 82.6-102.9 [facility] Comment on above: Performed By: #### B MP, MG, PTT, PT, CBC, FIB, LACTIC, IOCAL ####[address] [phone] Director: Boo Vinson MD NRBC Automated 1.1 per 100 WBC High 0.0 [facility] Comment on above: Performed By: #### B MP, MG, PTT, PT, CBC, FIB, LACTIC, IOCAL ####[address] [phone] Director: Boo Vinson MD Platelet mean volume (Bld) [Entitic vol] 11.1 fL Normal 8.1-13.5 [facility] Comment on above: Performed By: #### B MP, MG, PTT, PT, CBC, FIB, LACTIC, IOCAL ####[facility] [address] [place] [address] [phone] Director: Boo Vinson MD Platelets (Bld) [#/Vol] 214 10*3/uL Normal 138-453 [facility] Comment on above: Performed By: #### B MP, MG, PTT, PT, CBC, FIB, LACTIC, IOCAL ####[address] [phone] Director: Boo Vinson MD RBC (Bld) [#/Vol] 2.59 10*6/uL Low 4.21-5.77 [facility] Comment on above: Performed By: #### B MP, MG, PTT, PT, CBC, FIB, LACTIC, IOCAL ####[facility] [address] [place] [address])[phone] Director: Boo Vinson MD WBC (Bld) [#/Vol] 15.0 10*3/uL High 3.5-11.3 [facility] Comment on above: Performed By: #### B MP, MG, PTT, PT, CBC, FIB, LACTIC, IOCAL ####[facility] [address] [place], [place] [address])[phone] Director: Boo Vinson MD Calcium, Ionicon 11-07-2023 Calcium [Moles/Vol] 1.14 mmol/L Normal 1.13-1.33 [facility] Comment on above: Performed By: #### P TT, LIVP, IOCAL, MG, BMP, PT, FIB, CBC, LACTIC ####[facility] [address] [place], [place] [address])[phone] Director: Boo Vinson MD Calcium [Moles/Vol] 1.17 mmol/L Normal 1.13-1.33 [facility] Comment on above: Performed By: #### P TT, PT, MG, CBC, LACTIC, BMP, FIB, IOCAL ####[facility] [address] [place], [place] [address])[phone] Director: Boo iVnson MD Calcium [Moles/Vol] 1.15 mmol/L Normal 1.13-1.33 [facility] Comment on above: Performed By: #### C BC, FIB, LACTIC, PT, MG, IOCAL, LIVP, BMP, PTT ####[facility] [address] [place], [place] [address])[phone] Director: Boo Vinson MD Calcium [Moles/Vol] 1.17 mmol/L Normal 1.13-1.33 [facility] Comment on above: Performed By: #### B MP, MG, PTT, PT, CBC, FIB, LACTIC, IOCAL ####[address] [place] [address] lab Director: Boo Vinson MD Cholesterol,Fluidon 11-07-19 24 Cholesterol, Fluid 214 mg/dL Normal [facility] Comment on above: Result Comment: (NOT E)INTERPRETIVE INFORMATION: Cholesterol, Body FluidFor information on body fluid reference ranges and/or interpretiveguidance visit [email or web address]/bodyfluids/This test was developed and its performance characteristicsdetermined by [facility]. It has not been cleared orapproved by the [place] Food and Drug Administration. This test wasperformed in a CLIA certified laboratory and is intended forclinical purposes.Performed By: [facility] [place] [id number] Director: Edgardo Abdullahi MD, PhDCLIA Number: [id number] Performed By: #### A FCHOL ####[address] [address] lab Director: Boo Vinson MDATonya [address] [address] lab Director: Albert Jennings MD Cult,Bloodon 11-07-2023 Cult,Blood Specimen Description .BLOOD Special Requests L H 5ML Culture NO GROWTH 5 DAYS Report Status FINAL 11/07/2023 Normal [facility] Comment on above: Performed By: #### B C ####[address] [place] [address] Lab Director: Boo Vinson MD Fibrinogenon 11-07-2023 Fibrinogen 133 mg/dL Low 203-521 [facility] Comment on above: Performed By: #### P TT, LIVP, IOCAL, MG, BMP, PT, FIB, CBC, LACTIC ####[address] [place] [address] Lab Director: Boo Vinson MD Fibrinogen 139 mg/dL Low [address] [place] [address] Comment on above: Performed By: #### P TT, PT, MG, CBC, LACTIC, BMP, FIB, IOCAL ####[facility] [address] [place] [address] Lab Director: Boo Vinson MD Fibrinogen 127 mg/dL Low [address] [place] [address] Comment on above: Performed By: #### C BC, FIB, LACTIC, PT, MG, IOCAL, LIVP, BMP, PTT ####[facility] [address] [place] [address] Lab Director: Boo Vinson MD Fibrinogen 128 mg/dL Low [address] [place] [address] Comment on above: Performed By: #### B MP, MG, PTT, PT, CBC, FIB, LACTIC, IOCAL ####[facility] [address] [place] [address] Lab Director: Boo Vinson MD Fibrinogen 119 mg/dL Low [address] [place] [address] Comment on above: Performed By: #### B MP, FIB, LIVP, LACTIC, MG, PTT, PT, IOCAL, CBC ####[facility] [address] [place] [address] Lab Director: Boo Vinson MD Global Hemostasis(TEG),POCon 11-07-2023 Angle TEG 67.1 deg Normal 63.0-78.0 [facility] Fibrinogen, Func TEG 12.5 mm Low 15.0-32.0 [facility] K (Kinetics) TEG 1.8 min Normal 0.8-2.1 [facility] MA (Max Clot) TEG 55.5 mm Normal 52.0-69.0 [facility] MA Rapid TEG 55.1 mm Normal 52.0-70.0 [facility] Performing Location: Performed at [facility] ECMO Normal [facility] R TEG w/Hep 11.2 min High 4.3-8.3 [facility] R(Reaction Time) TEG 9.7 min High 4.6-9.1 [facility] Angle TEG 63.5 deg Normal 63.0-78.0 [facility] Fibrinogen, Func TEG 13.4 mm Low 15.0-32.0 [facility] K (Kinetics) TEG 2.4 min High 0.8-2.1 [facility] MA (Max Clot) TEG 57.0 mm Normal 52.0-69.0 [facility] MA Rapid TEG 56.5 mm Normal 52.0-70.0 [facility] Performing Location: Performed at [facility] ECMO Normal [facility] R TEG w/Hep 11.8 min High 4.3-8.3 [facility] R(Reaction Time) TEG 10.7 min High 4.6-9.1 [facility] Angle TEG 64.8 deg Normal 63.0-78.0 [facility] Fibrinogen, Func TEG 12.0 mm Low 15.0-32.0 [facility] K (Kinetics) TEG 1.6 min Normal 0.8-2.1 [facility] MA (Max Clot) TEG 57.0 mm Normal 52.0-69.0 [facility] MA Rapid TEG 54.7 mm Normal 52.0-70.0 [facility] Performing Location: Performed at [facility] ECMO Normal [facility] R TEG w/Hep 9.7 min High 4.3-8.3 [facility] R(Reaction Time) TEG 11.2 min High 4.6-9.1 [facility] Glucose (POC)on 11-07-2023 Glucose [Mass/Vol] 121 mg/dL High 74-100 [facility] Glucose [Mass/Vol] 135 mg/dL High 74-100 [facility] Glucose [Mass/Vol] 159 mg/dL High 74-100 [facility] Glucose [Mass/Vol] 147 mg/dL High 74-100 [facility] Glucose [Mass/Vol] 143 mg/dL High 74-100 [facility] Glucose [Mass/Vol] 148 mg/dL High 74-100 [facility] Lactic Acidon 11-07-2023 Lactic Acid,Whole Bl 1.1 mmol/L Normal 0.7-2.1 [facility] Comment on above: Performed By: #### P TT, LIVP, IOCAL, MG, BMP, PT, FIB, CBC, LACTIC ####[facility] [address] [place], [place] [address])[phone] Director: Boo Vinson MD Lactic Acid,Whole Bl 1.1 mmol/L Normal 0.7-2.1 [facility] Comment on above: Performed By: #### P TT, PT, MG, CBC, LACTIC, BMP, FIB, IOCAL ####[facility] [address] [place] [address] Lab Director: Boo Vinson MD Lactic Acid,Whole Bl 1.0 mmol/L Normal 0.7-2.1 [facility] Comment on above: Performed By: #### C BC, FIB, LACTIC, PT, MG, IOCAL, LIVP, BMP, PTT ####[facility] [address] [place] [address] Lab Director: Boo Vinson MD Lactic Acid,Whole Bl 1.0 mmol/L Normal 0.7-2.1 [facility] Comment on above: Performed By: #### B MP, MG, PTT, PT, CBC, FIB, LACTIC, IOCAL ####[facility] [address] [place] [address] Lab Director: Boo Vinson MD Liver Profileon 11-07-2023 ALT [Catalytic activity/Vol] 1401 U/L High 10-50 [facility] Comment on above: Performed By: #### C BC, FIB, LACTIC, PT, MG, IOCAL, LIVP, BMP, PTT ####[facility] [address] [place], [place] [address])[phone] Director: Boo Vinson MD Albumin [Mass/Vol] 3.6 g/dL Normal 3.5-5.2 [facility] Comment on above: Performed By: #### C BC, FIB, LACTIC, PT, MG, IOCAL, LIVP, BMP, PTT ####[facility] [address] [place], [place] [address])[phone] Director: Boo Vinson MD Albumin/Glob Ratio 2.0 Normal 1.0-2.5 [facility] Comment on above: Performed By: #### C BC, FIB, LACTIC, PT, MG, IOCAL, LIVP, BMP, PTT ####[facility] [address] [place] [address])[phone] Director: Boo Vinson MD Alkaline Phos 86 U/L Normal 40-129 [facility] Comment on above: Performed By: #### C BC, FIB, LACTIC, PT, MG, IOCAL, LIVP, BMP, PTT ####[facility] [address] [place], [place] [address])[phone] Director: Boo Vinson MD AST [Catalytic activity/Vol] 322 U/L High 10-50 [facility] Comment on above: Performed By: #### C BC, FIB, LACTIC, PT, MG, IOCAL, LIVP, BMP, PTT ####[facility] [address] [place], [place] [address])[phone] Director: Boo Vinson MD Bilirubin [Mass/Vol] 0.9 mg/dL Normal 0.00-1.20 [facility] Comment on above: Performed By: #### C BC, FIB, LACTIC, PT, MG, IOCAL, LIVP, BMP, PTT ####[facility] [address] [place] [address] Lab Director: Boo Vinson MD Bilirubin, Indirect 0.5 mg/dL Normal 0.0-1.0 [facility] Comment on above: Performed By: #### C BC, FIB, LACTIC, PT, MG, IOCAL, LIVP, BMP, PTT ####[facility] [address] [place] [address])[phone] Director: Boo Vinson MD Bilirubin.indirect [Mass/Vol] 0.4 mg/dL High 0.00-0.30 [facility] Comment on above: Performed By: #### C BC, FIB, LACTIC, PT, MG, IOCAL, LIVP, BMP, PTT ####[address] [address])[phone] Director: Boo Vinson MD Globulin (S) [Mass/Vol] 1.9 g/dL Normal [facility] Comment on above: Performed By: #### C BC, FIB, LACTIC, PT, MG, IOCAL, LIVP, BMP, PTT ####[address] [address])[phone] Director: Boo Vinson MD Protein [Mass/Vol] 5.5 g/dL Low 6.6-8.7 [facility] Comment on above: Performed By: #### C BC, FIB, LACTIC, PT, MG, IOCAL, LIVP, BMP, PTT ####[facility] [address] [place], [place] [address])[phone] Director: Boo Vinson MD ALT [Catalytic activity/Vol] 1555 U/L High 10-50 [facility] Comment on above: Performed By: #### B MP, FIB, LIVP, LACTIC, MG, PTT, PT, IOCAL, CBC ####[address] [place] [address] Lab Director: Boo Vinson MD Albumin [Mass/Vol] 3.5 g/dL Normal 3.5-5.2 [facility] Comment on above: Performed By: #### B MP, FIB, LIVP, LACTIC, MG, PTT, PT, IOCAL, CBC ####[facility] [address] [place] [address] Lab Director: Boo Vinson MD Albumin/Glob Ratio 2.0 Normal 1.0-2.5 [facility] Comment on above: Performed By: #### B MP, FIB, LIVP, LACTIC, MG, PTT, PT, IOCAL, CBC ####[address] [address])[phone] Director: Boo Vinson MD Alkaline Phos 81 U/L Normal 40-129 [facility] Comment on above: Performed By: #### B MP, FIB, LIVP, LACTIC, MG, PTT, PT, IOCAL, CBC ####[address] [address] Lab Director: Boo Vinson MD AST [Catalytic activity/Vol] 487 U/L High 10-50 [facility] Comment on above: Performed By: #### B MP, FIB, LIVP, LACTIC, MG, PTT, PT, IOCAL, CBC ####[address] [place] [address] Lab Director: Boo Vinson MD Bilirubin [Mass/Vol] 0.8 mg/dL Normal 0.00-1.20 [facility] Comment on above: Performed By: #### B MP, FIB, LIVP, LACTIC, MG, PTT, PT, IOCAL, CBC ####[address] [place] [address] Lab Director: Boo Vinson MD Bilirubin, Indirect 0.4 mg/dL Normal 0.0-1.0 [facility] Comment on above: Performed By: #### B MP, FIB, LIVP, LACTIC, MG, PTT, PT, IOCAL, CBC ####[facility] [address] [place] [address] Lab Director: Boo Vinson MD Bilirubin.indirect [Mass/Vol] 0.4 mg/dL High 0.00-0.30 [facility] Comment on above: Performed By: #### B MP, FIB, LIVP, LACTIC, MG, PTT, PT, IOCAL, CBC ####[facility] [address] [place] [address] Lab Director: Boo Vinson MD Globulin (S) [Mass/Vol] 1.9 g/dL Normal [facility] Comment on above: Performed By: #### B MP, FIB, LIVP, LACTIC, MG, PTT, PT, IOCAL, CBC ####[address] [address] Lab Director: Boo Vinson MD Protein [Mass/Vol] 5.4 g/dL Low 6.6-8.7 [facility] Comment on above: Performed By: #### B MP, FIB, LIVP, LACTIC, MG, PTT, PT, IOCAL, CBC ####[address] [address] Lab Director: Boo Vinson MD Magnesiumon 11-07-2023 Magnesium [Mass/Vol] 2.4 mg/dL Normal 1.6-2.6 [facility] Comment on above: Performed By: #### P TT, PT, MG, CBC, LACTIC, BMP, FIB, IOCAL ####[facility] [address] [place] [address] Lab Director: Boo Vinson MD Magnesium [Mass/Vol] 2.4 mg/dL Normal 1.6-2.6 [facility] Comment on above: Performed By: #### C BC, FIB, LACTIC, PT, MG, IOCAL, LIVP, BMP, PTT ####[address] [address] Lab Director: Boo Vinson MD Magnesium [Mass/Vol] 2.4 mg/dL Normal 1.6-2.6 [facility] Comment on above: Performed By: #### B MP, MG, PTT, PT, CBC, FIB, LACTIC, IOCAL ####[address] [address] Lab Director: Boo Vinson MD Magnesium [Mass/Vol] 2.3 mg/dL Normal 1.6-2.6 [facility] Comment on above: Performed By: #### B MP, FIB, LIVP, LACTIC, MG, PTT, PT, IOCAL, CBC ####[place], [place] [address])[phone] Director: Boo Vinson MD PTon 11-07-2023 INR Coag (PPP) [Relative time] 2.6 {INR} Normal [facility] Comment on above: Result Comment: Ther apeutic Range: Moderate Anticoagulant Intensity: INR = 2.0-3.0 High Anticoagulant Intensity: INR = 2.5-3.5 Performed By: #### P TT, LIVP, IOCAL, MG, BMP, PT, FIB, CBC, LACTIC ####[address] [address] lab Director: Boo Vinson MD PT Coag (PPP) [Time] 27.2 s High 11.7-14.9 [facility] Comment on above: Performed By: #### P TT, LIVP, IOCAL, MG, BMP, PT, FIB, CBC, LACTIC ####[place], [place] [address])[phone] Director: Boo Vinson MD INR Coag (PPP) [Relative time] 2.5 {INR} Normal [facility] Comment on above: Result Comment: Ther apeutic Range: Moderate Anticoagulant Intensity: INR = 2.0-3.0 High Anticoagulant Intensity: INR = 2.5-3.5 Performed By: #### P TT, PT, MG, CBC, LACTIC, BMP, FIB, IOCAL ####[address] [address] Lab Director: Boo Vinson MD PT Coag (PPP) [Time] 26.5 s High 11.7-14.9 [facility] Comment on above: Performed By: #### P TT, PT, MG, CBC, LACTIC, BMP, FIB, IOCAL ####[address] [address] Lab Director: Boo Vinson MD INR Coag (PPP) [Relative time] 2.6 {INR} Normal [facility] Comment on above: Result Comment: Ther apeutic Range: Moderate Anticoagulant Intensity: INR = 2.0-3.0 High Anticoagulant Intensity: INR = 2.5-3.5 Performed By: #### C BC, FIB, LACTIC, PT, MG, IOCAL, LIVP, BMP, PTT ####[address] [address] Lab Director: Boo Vinson MD PT Coag (PPP) [Time] 27.2 s High 11.7-14.9 [facility] Comment on above: Performed By: #### C BC, FIB, LACTIC, PT, MG, IOCAL, LIVP, BMP, PTT ####[facility] [address] [place] [address] Lab Director: Boo Vinson MD INR Coag (PPP) [Relative time] 2.8 {INR} Normal [facility] Comment on above: Result Comment: Ther apeutic Range: Moderate Anticoagulant Intensity: INR = 2.0-3.0 High Anticoagulant Intensity: INR = 2.5-3.5 Performed By: #### B MP, MG, PTT, PT, CBC, FIB, LACTIC, IOCAL ####[address] [address] Lab Director: Boo Vinson MD PT Coag (PPP) [Time] 28.4 s High 11.7-14.9 [facility] Comment on above: Performed By: #### B MP, MG, PTT, PT, CBC, FIB, LACTIC, IOCAL ####[facility] [address] [place], [place] [id number] Lab Director: Boo Vinson MD INR Coag (PPP) [Relative time] 2.9 {INR} Normal [facility] Comment on above: Result Comment: Ther apeutic Range: Moderate Anticoagulant Intensity: INR = 2.0-3.0 High Anticoagulant Intensity: INR = 2.5-3.5 Performed By: #### B MP, FIB, LIVP, LACTIC, MG, PTT, PT, IOCAL, CBC ####[place] [id number] [facility] Director: Boo Vinson MD PT Coag (PPP) [Time] 29.6 s High 11.7-14.9 [facility] Comment on above: Performed By: #### B MP, FIB, LIVP, LACTIC, MG, PTT, PT, IOCAL, CBC ####[facility] [address] [place] [address] Lab Director: Boo Vinson MD Venous Bld Gas,POCon 024 HCO3 (Bld) [Moles/Vol] 28.6 mmol/L Normal 22.0-29.0 [facility] Oxygen saturation in Blood 76.7 % Normal 60.0-85.0 [facility] pCO2, Venous 45.4 mm Hg Normal 41.0-51.0 [facility] pH,Venous 7.407 Normal 7.320-7.430 [facility] pO2, Venous 41.5 mm Hg Normal 30.0-50.0 [facility] Positive Base Excess (calc) 3.5 mmol/L High 0.0-3.0 [facility] FIO2 40.0 Normal [facility] HCO3 (Bld) [Moles/Vol] 28.4 mmol/L Normal 22.0-29.0 [facility] Mode of Delivery Pressure Control Normal Me [facility] O2 Device Adult Ventilator Normal [facility] Oxygen saturation in Blood 65.3 % Normal 60.0-85.0 [facility] pCO2, Venous 46.1 mm Hg Normal 41.0-51.0 [facility] pH,Venous 7.397 Normal 7.320-7.430 [facility] pO2, Venous 34.4 mm Hg Normal 30.0-50.0 [facility] Sharee 11-06-2023 ACT 186 sec High 79-149 [facility] APTTon 11-06-2023 aPTT Coag (Bld) [Time] 52.7 s High 23.0-36.5 [facility] Comment on above: Result Comment: IV H eparin Therapy Range:66.0-92.0 sec Performed By: #### P TT ####[place] [address] Lab Director: Boo Vinson MD aPTT Coag (Bld) [Time] 51.0 s High 23.0-36.5 [facility] Comment on above: Result Comment: IV H eparin Therapy Range:66.0-92.0 sec Performed By: #### B MP, FIB, IOCAL, MG, PTT, PT, CBC, LACTIC ####[facility] [address] [place] [address] Lab Director: Boo Vinson MD aPTT Coag (Bld) [Time] 46.9 s High 23.0-36.5 [facility] Comment on above: Result Comment: IV H eparin Therapy Range:66.0-92.0 sec Performed By: #### P TT ####[place] [address] Lab Director: Boo Vinson MD aPTT Coag (Bld) [Time] 48.3 s High 23.0-36.5 [facility] Comment on above: Result Comment: IV H eparin Therapy Range:66.0-92.0 sec Performed By: #### L ACTIC, PTT, AKASH, BMP, FIB, IOCAL, MG, LIVP, PT, CBC ####[address] [place] [address] [facility] Director: Boo Vinson MD aPTT Coag (Bld) [Time] 49.5 s High 23.0-36.5 [facility] Comment on above: Result Comment: IV H eparin Therapy Range:66.0-92.0 sec Performed By: #### P T, MG, FIB, BMP, IOCAL, PTT, CBC, LACTIC ####[address] [place] [address] lab Director: Boo Vinson MD Arterial Bld Gas,POCon 11-05 Korey Test NOT APPLICABLE Normal [facility] FIO2 40.0 Normal [facility] HCO3 (Bld) [Moles/Vol] 27.4 mmol/L Normal 21.0-28.0 [facility] Mode of Delivery Pressure Control Normal [facility] O2 Device Adult Ventilator Normal [facility] Oxygen saturation in Blood 97.6 % Normal 94.0-98.0 [facility] pCO2, Arterial 38.7 mm Hg Normal 35.0-48.0 [facility] pH, Arterial 7.458 High 7.350-7.450 [facility] pO2, Arterial 92.9 mm Hg Normal 83.0-108.0 [facility] Positive Base Excess (calc) 3.3 mmol/L High 0.0-3.0 [facility] Site Drawn Arterial Line Normal [facility] HCO3 (Bld) [Moles/Vol] 27.5 mmol/L Normal 21.0-28.0 [facility] Oxygen saturation in Blood 96.2 % Normal 94.0-98.0 [facility] pCO2, Arterial 36.3 mm Hg Normal 35.0-48.0 [facility] pH, Arterial 7.488 High 7.350-7.450 [facility] pO2, Arterial 76.0 mm Hg Low 83.0-108.0 [facility] Positive Base Excess (calc) 3.9 mmol/L High 0.0-3.0 [facility] HCO3 (Bld) [Moles/Vol] 28.4 mmol/L High 21.0-28.0 [facility] Oxygen saturation in Blood 95.3 % Normal 94.0-98.0 [facility] pCO2, Arterial 41.3 mm Hg Normal 35.0-48.0 [facility] pH, Arterial 7.445 Normal 7.350-7.450 [facility] pO2, Arterial 74.3 mm Hg Low 83.0-108.0 [facility] Positive Base Excess (calc) 4.0 mmol/L High 0.0-3.0 [facility] HCO3 (Bld) [Moles/Vol] 28.1 mmol/L High 21.0-28.0 [facility] Oxygen saturation in Blood 98.1 % High 94.0-98.0 [facility] pCO2, Arterial 42.0 mm Hg Normal 35.0-48.0 [facility] pH, Arterial 7.434 Normal 7.350-7.450 [facility] pO2, Arterial 103.1 mm Hg Normal 83.0-108.0 [facility] Positive Base Excess (calc) 3.5 mmol/L High 0.0-3.0 [facility] Basic Metabolic Profon 11-05 Anion gap [Moles/Vol] 10 mmol/L Normal 9-16 [facility] Comment on above: Performed By: #### B MP, FIB, IOCAL, MG, PTT, PT, CBC, LACTIC ####[facility] [id number], [place] [id number])[phone] Director: Boo Vinson MD Calcium [Mass/Vol] 8.6 mg/dL Normal 8.6-10.4 [facility] Comment on above: Performed By: #### B MP, FIB, IOCAL, MG, PTT, PT, CBC, LACTIC ####[place] [address] [place], [place] [address])[phone] Director: Boo Vinson MD Chloride [Moles/Vol] 106 mmol/L Normal 98-107 [facility] Comment on above: Performed By: #### B MP, FIB, IOCAL, MG, PTT, PT, CBC, LACTIC ####[address] [address])[phone] Director: Boo Vinson MD CO2 [Moles/Vol] 27 mmol/L Normal 20-31 [facility] Comment on above: Performed By: #### B MP, FIB, IOCAL, MG, PTT, PT, CBC, LACTIC ####[address] [address])[phone] Director: Boo Vinson MD Creatinine [Mass/Vol] 0.7 mg/dL Normal 0.70-1.20 [facility] Comment on above: Performed By: #### B MP, FIB, IOCAL, MG, PTT, PT, CBC, LACTIC ####[place], [place] [address])[phone] Director: Boo Vinson MD GFR/1.73 sq M.predicted among non-blacks MDRD (S/P/Bld) [Vol rate/Area] mL/min/{1.73_m2} Normal >60 [facility] Comment on above: Result Comment: Thes e [...] FIB, IOCAL, MG, PTT, PT, CBC, LACTIC ####[address] [address])[phone] Director: Boo Vinson MD Glucose [Mass/Vol] 166 mg/dL High 74-99 [facility] Comment on above: Performed By: #### B MP, FIB, IOCAL, MG, PTT, PT, CBC, LACTIC ####[address] [address])[phone] Director: Boo Vinson MD Potassium [Moles/Vol] 3.3 mmol/L Low 3.7-5.3 [facility] Comment on above: Performed By: #### B MP, FIB, IOCAL, MG, PTT, PT, CBC, LACTIC ####[address] [address])[phone] Director: Boo Vinson MD Sodium [Moles/Vol] 143 mmol/L Normal 136-145 [facility] Comment on above: Performed By: #### B MP, FIB, IOCAL, MG, PTT, PT, CBC, LACTIC ####[address] [address])[phone] Director: Boo Vinson MD Urea nitrogen [Mass/Vol] 22 mg/dL High 6-20 [facility] Comment on above: Performed By: #### B MP, FIB, IOCAL, MG, PTT, PT, CBC, LACTIC ####[place], [place] [address])[phone] Director: Boo Vinson MD GFR/1.73 sq M.predicted among non-blacks MDRD (S/P/Bld) [Vol rate/Area] mL/min/{1.73_m2} Normal >60 [facility] Comment on above: Result Comment: Thes e [...] BMP, FIB, IOCAL, MG, LIVP, PT, CBC ####[facility] [address] [place] [address])[phone] Director: Boo Vinson MD Anion gap [Moles/Vol] 10 mmol/L Normal 9-16 [facility] Comment on above: Performed By: #### L ACTIC, PTT, AKASH, BMP, FIB, IOCAL, MG, LIVP, PT, CBC ####[address] [address])[phone] Director: Boo Vinson MD Calcium [Mass/Vol] 8.7 mg/dL Normal 8.6-10.4 [facility] Comment on above: Performed By: #### L ACTIC, PTT, AKASH, BMP, FIB, IOCAL, MG, LIVP, PT, CBC ####[address] [address] Lab Director: Boo Vinson MD Chloride [Moles/Vol] 107 mmol/L Normal 98-107 [facility] Comment on above: Performed By: #### L ACTIC, PTT, AKASH, BMP, FIB, IOCAL, MG, LIVP, PT, CBC ####[address] [address])[phone] Director: Boo Vinson MD CO2 [Moles/Vol] 28 mmol/L Normal 20-31 [facility] Comment on above: Performed By: #### L ACTIC, PTT, AKASH, BMP, FIB, IOCAL, MG, LIVP, PT, CBC ####[facility] [address] [place] [address] Lab Director: Boo Vinson MD Creatinine [Mass/Vol] 0.7 mg/dL Normal 0.70-1.20 [facility] Comment on above: Performed By: #### L ACTIC, PTT, AKASH, BMP, FIB, IOCAL, MG, LIVP, PT, CBC ####[facility] [address] [place], [place] [address])[phone] Director: Boo Vinson MD Glucose [Mass/Vol] 163 mg/dL High 74-99 [facility] Comment on above: Performed By: #### L ACTIC, PTT, AKASH, BMP, FIB, IOCAL, MG, LIVP, PT, CBC ####[facility] [address] [place], [place] [address])[phone] Director: Boo Vinson MD Potassium [Moles/Vol] 3.5 mmol/L Low 3.7-5.3 [facility] Comment on above: Performed By: #### L ACTIC, PTT, AKASH, BMP, FIB, IOCAL, MG, LIVP, PT, CBC ####[facility] [address] [place], [place] [address])[phone] Director: Boo Vinson MD Sodium [Moles/Vol] 145 mmol/L Normal 136-145 [facility] Comment on above: Performed By: #### L ACTIC, PTT, AKASH, BMP, FIB, IOCAL, MG, LIVP, PT, CBC ####[facility] [address] [place] [address] Lab Director: Boo Vinson MD Urea nitrogen [Mass/Vol] 21 mg/dL High 6-20 [facility] Comment on above: Performed By: #### L ACTIC, PTT, AKASH, BMP, FIB, IOCAL, MG, LIVP, PT, CBC ####[facility] [address] [place], [place] [address])[phone] Director: Boo Vinson MD Anion gap [Moles/Vol] 11 mmol/L Normal 9-16 [facility] Comment on above: Performed By: #### P T, MG, FIB, BMP, IOCAL, PTT, CBC, LACTIC ####[facility] [address] [place] [address] Lab Director: Boo Vinson MD Calcium [Mass/Vol] 8.5 mg/dL Low 8.6-10.4 [facility] Comment on above: Performed By: #### P T, MG, FIB, BMP, IOCAL, PTT, CBC, LACTIC ####[address] [place], [place] [address])[phone] Director: Boo Vinson MD Chloride [Moles/Vol] 108 mmol/L High 98-107 [facility] Comment on above: Performed By: #### P T, MG, FIB, BMP, IOCAL, PTT, CBC, LACTIC ####[facility] [address] [place], [place] [address])[phone] Director: Boo Vinson MD CO2 [Moles/Vol] 27 mmol/L Normal 20-31 [facility] Comment on above: Performed By: #### P T, MG, FIB, BMP, IOCAL, PTT, CBC, LACTIC ####[facility] [address] [place], [place] [address])[phone] Director: Boo Vinson MD Creatinine [Mass/Vol] 0.7 mg/dL Normal 0.70-1.20 [facility] Comment on above: Performed By: #### P T, MG, FIB, BMP, IOCAL, PTT, CBC, LACTIC ####[facility] [address] [place], [place] [address])[phone] Director: Boo Vinson MD GFR/1.73 sq M.predicted among non-blacks MDRD (S/P/Bld) [Vol rate/Area] mL/min/{1.73_m2} Normal >60 [facility] Comment on above: Result Comment: Thes e [...] MG, FIB, BMP, IOCAL, PTT, CBC, LACTIC ####[facility] [address] [place] [address] Lab Director: Boo Vinson MD Glucose [Mass/Vol] 144 mg/dL High 74-99 [facility] Comment on above: Performed By: #### P T, MG, FIB, BMP, IOCAL, PTT, CBC, LACTIC ####[address] [address])[phone] Director: Boo Vinson MD Potassium [Moles/Vol] 3.6 mmol/L Low 3.7-5.3 [facility] Comment on above: Performed By: #### P T, MG, FIB, BMP, IOCAL, PTT, CBC, LACTIC ####[address] [address] Lab Director: Boo Vinson MD Sodium [Moles/Vol] 146 mmol/L High 136-145 [facility] Comment on above: Performed By: #### P T, MG, FIB, BMP, IOCAL, PTT, CBC, LACTIC ####[facility] [address] [place] [address] Lab Director: Boo Vinson MD Urea nitrogen [Mass/Vol] 21 mg/dL High 6-20 [facility] Comment on above: Performed By: #### P T, MG, FIB, BMP, IOCAL, PTT, CBC, LACTIC ####[facility] [address] [place] [address] Lab Director: Boo Vinson MD CBCon 11-06-2023 Erythrocyte distribution width (RBC) [Ratio] 15.4 % High 11.8-14.4 [facility] Comment on above: Performed By: #### B MP, FIB, LIVP, LACTIC, MG, PTT, PT, IOCAL, CBC ####[address] [address] lab Director: Boo Vinson MD Hematocrit (Bld) [Volume fraction] 22.8 % Low 40.7-50.3 [facility] Comment on above: Performed By: #### B MP, FIB, LIVP, LACTIC, MG, PTT, PT, IOCAL, CBC ####[address] [address] lab Director: Boo Vinson MD Hemoglobin (Bld) [Mass/Vol] 7.3 g/dL Low 13.0-17.0 [facility] Comment on above: Performed By: #### B MP, FIB, LIVP, LACTIC, MG, PTT, PT, IOCAL, CBC ####[address] [address] lab Director: Boo Vinson MD MCH (RBC) [Entitic mass] 30.0 pg Normal 25.2-33.5 [facility] Comment on above: Performed By: #### B MP, FIB, LIVP, LACTIC, MG, PTT, PT, IOCAL, CBC ####[address] [address] lab Director: Boo Vinson MD MCHC (RBC) [Mass/Vol] 32.0 g/dL Normal 28.4-34.8 [facility] Comment on above: Performed By: #### B MP, FIB, LIVP, LACTIC, MG, PTT, PT, IOCAL, CBC ####[address] [address] Lab Director: Boo Vinson MD MCV (RBC) [Entitic vol] 93.8 fL Normal 82.6-102.9 [facility] Comment on above: Performed By: #### B MP, FIB, LIVP, LACTIC, MG, PTT, PT, IOCAL, CBC ####[address] [id number])[phone] Director: Boo Vinson MD NRBC Automated 1.2 per 100 WBC High 0.0 [facility] Comment on above: Performed By: #### B MP, FIB, LIVP, LACTIC, MG, PTT, PT, IOCAL, CBC ####[address] [address])[phone] Director: Boo Vinson MD Platelet mean volume (Bld) [Entitic vol] 11.0 fL Normal 8.1-13.5 [facility] Comment on above: Performed By: #### B MP, FIB, LIVP, LACTIC, MG, PTT, PT, IOCAL, CBC ####[address] [id number])[phone] Director: Boo Vinson MD Platelets (Bld) [#/Vol] 204 10*3/uL Normal 138-453 [facility] Comment on above: Performed By: #### B MP, FIB, LIVP, LACTIC, MG, PTT, PT, IOCAL, CBC ####[address] [id number])[phone] Director: Boo Vinson MD RBC (Bld) [#/Vol] 2.43 10*6/uL Low 4.21-5.77 [facility] Comment on above: Performed By: #### B MP, FIB, LIVP, LACTIC, MG, PTT, PT, IOCAL, CBC ####[address] [id number])[phone] Director: Boo Vinson MD WBC (Bld) [#/Vol] 16.0 10*3/uL High 3.5-11.3 [facility] Comment on above: Performed By: #### B MP, FIB, LIVP, LACTIC, MG, PTT, PT, IOCAL, CBC ####[place], [place] [address])[phone] Director: Boo Vinson MD Erythrocyte distribution width (RBC) [Ratio] 15.4 % High 11.8-14.4 [facility] Comment on above: Performed By: #### B MP, FIB, IOCAL, MG, PTT, PT, CBC, LACTIC ####[place], [place] [address])[phone] Director: Boo Vinson MD Hematocrit (Bld) [Volume fraction] 24.3 % Low 40.7-50.3 [facility] Comment on above: Performed By: #### B MP, FIB, IOCAL, MG, PTT, PT, CBC, LACTIC ####[place], [place] [address])[phone] Director: Boo Vinson MD Hemoglobin (Bld) [Mass/Vol] 7.6 g/dL Low 13.0-17.0 [facility] Comment on above: Performed By: #### B MP, FIB, IOCAL, MG, PTT, PT, CBC, LACTIC ####[place] [address] [facility] Director: Boo Vinson MD MCH (RBC) [Entitic mass] 29.5 pg Normal 25.2-33.5 [facility] Comment on above: Performed By: #### B MP, FIB, IOCAL, MG, PTT, PT, CBC, LACTIC ####[place], [place] [address])[phone] Director: Boo Vinson MD MCHC (RBC) [Mass/Vol] 31.3 g/dL Normal 28.4-34.8 [facility] Comment on above: Performed By: #### B MP, FIB, IOCAL, MG, PTT, PT, CBC, LACTIC ####[address] [place], [place] [id number])[phone] Director: Boo Vinson MD MCV (RBC) [Entitic vol] 94.2 fL Normal 82.6-102.9 [facility] Comment on above: Performed By: #### B MP, FIB, IOCAL, MG, PTT, PT, CBC, LACTIC ####[address] [phone] Director: Boo Vinson MD NRBC Automated 1.7 per 100 WBC High 0.0 [facility] Comment on above: Performed By: #### B MP, FIB, IOCAL, MG, PTT, PT, CBC, LACTIC ####[address] [address])[phone] Director: Boo Vinson MD Platelet mean volume (Bld) [Entitic vol] 11.2 fL Normal 8.1-13.5 [facility] Comment on above: Performed By: #### B MP, FIB, IOCAL, MG, PTT, PT, CBC, LACTIC ####[address] [phone] Director: Boo Vinson MD Platelets (Bld) [#/Vol] 203 10*3/uL Normal 138-453 [facility] Comment on above: Performed By: #### B MP, FIB, IOCAL, MG, PTT, PT, CBC, LACTIC ####[address] [place], [place] [id number])[phone] Director: Boo Vinson MD RBC (Bld) [#/Vol] 2.58 10*6/uL Low 4.21-5.77 [facility] Comment on above: Performed By: #### B MP, FIB, IOCAL, MG, PTT, PT, CBC, LACTIC ####[address] [address] Lab Director: Boo Vinson MD WBC (Bld) [#/Vol] 17.2 10*3/uL High 3.5-11.3 [facility] Comment on above: Performed By: #### B MP, FIB, IOCAL, MG, PTT, PT, CBC, LACTIC ####[facility] [address] [place] [address] Lab Director: Boo Vinson MD Erythrocyte distribution width (RBC) [Ratio] 15.6 % High 11.8-14.4 [facility] Comment on above: Performed By: #### L ACTIC, PTT, AKASH, BMP, FIB, IOCAL, MG, LIVP, PT, CBC ####[facility] [address] [place], [place] [address])[phone] Director: Boo Vinson MD Hematocrit (Bld) [Volume fraction] 24.1 % Low 40.7-50.3 [facility] Comment on above: Performed By: #### L ACTIC, PTT, AKASH, BMP, FIB, IOCAL, MG, LIVP, PT, CBC ####[facility] [address] [place] [address])[phone] Director: Boo Vinson MD Hemoglobin (Bld) [Mass/Vol] 7.6 g/dL Low 13.0-17.0 [facility] Comment on above: Performed By: #### L ACTIC, PTT, AKASH, BMP, FIB, IOCAL, MG, LIVP, PT, CBC ####[facility] [address] [place], [place] [address])[phone] Director: Boo Vinson MD MCH (RBC) [Entitic mass] 29.6 pg Normal 25.2-33.5 [facility] Comment on above: Performed By: #### L ACTIC, PTT, AKASH, BMP, FIB, IOCAL, MG, LIVP, PT, CBC ####[facility] [address] [place] [address] Lab Director: Boo Vinson MD MCHC (RBC) [Mass/Vol] 31.5 g/dL Normal 28.4-34.8 [facility] Comment on above: Performed By: #### L ACTIC, PTT, AKASH, BMP, FIB, IOCAL, MG, LIVP, PT, CBC ####[facility] [address] [place] [address] Lab Director: Boo Vinson MD MCV (RBC) [Entitic vol] 93.8 fL Normal 82.6-102.9 [facility] Comment on above: Performed By: #### L ACTIC, PTT, AKASH, BMP, FIB, IOCAL, MG, LIVP, PT, CBC ####[facility] [address] [place] [address] Lab Director: Boo Vinson MD NRBC Automated 1.5 per 100 WBC High 0.0 [facility] Comment on above: Performed By: #### L ACTIC, PTT, AKASH, BMP, FIB, IOCAL, MG, LIVP, PT, CBC ####[facility] [address] [place] [address])[phone] Director: Boo Vinson MD Platelet mean volume (Bld) [Entitic vol] 10.6 fL Normal 8.1-13.5 [facility] Comment on above: Performed By: #### L ACTIC, PTT, AKASH, BMP, FIB, IOCAL, MG, LIVP, PT, CBC ####[facility] [address] [place], [place] [id number])[phone] Director: Boo Vinson MD Platelets (Bld) [#/Vol] 202 10*3/uL Normal 138-453 [facility] Comment on above: Performed By: #### L ACTIC, PTT, AKASH, BMP, FIB, IOCAL, MG, LIVP, PT, CBC ####[facility] [address] [place] [address] Lab Director: Boo Vinson MD RBC (Bld) [#/Vol] 2.57 10*6/uL Low 4.21-5.77 [facility] Comment on above: Performed By: #### L ACTIC, PTT, AKASH, BMP, FIB, IOCAL, MG, LIVP, PT, CBC ####[address] [address] Lab Director: Boo Vinson MD WBC (Bld) [#/Vol] 16.9 10*3/uL High 3.5-11.3 [facility] Comment on above: Performed By: #### L ACTIC, PTT, AKASH, BMP, FIB, IOCAL, MG, LIVP, PT, CBC ####[address] [address] [facility] Director: Boo Vinson MD Erythrocyte distribution width (RBC) [Ratio] 15.4 % High 11.8-14.4 [facility] Comment on above: Performed By: #### P T, MG, FIB, BMP, IOCAL, PTT, CBC, LACTIC ####[place], [place] [address])[phone] Director: Boo Vinson MD Hematocrit (Bld) [Volume fraction] 23.9 % Low 40.7-50.3 [facility] Comment on above: Performed By: #### P T, MG, FIB, BMP, IOCAL, PTT, CBC, LACTIC ####[facility] [address] [place], [place] [address])[phone] Director: Boo Vinson MD Hemoglobin (Bld) [Mass/Vol] 7.4 g/dL Low 13.0-17.0 [facility] Comment on above: Performed By: #### P T, MG, FIB, BMP, IOCAL, PTT, CBC, LACTIC ####[address] [address] Lab Director: Boo Vinson MD MCH (RBC) [Entitic mass] 29.6 pg Normal 25.2-33.5 [facility] Comment on above: Performed By: #### P T, MG, FIB, BMP, IOCAL, PTT, CBC, LACTIC ####[address] [phone] Director: Boo Vinson MD MCHC (RBC) [Mass/Vol] 31.0 g/dL Normal 28.4-34.8 [facility] Comment on above: Performed By: #### P T, MG, FIB, BMP, IOCAL, PTT, CBC, LACTIC ####[address] [address])[phone] Director: Boo Vinson MD MCV (RBC) [Entitic vol] 95.6 fL Normal 82.6-102.9 [facility] Comment on above: Performed By: #### P T, MG, FIB, BMP, IOCAL, PTT, CBC, LACTIC ####[address] [address])[phone] Director: Boo Vinson MD Platelets (Bld) [#/Vol] 194 10*3/uL Normal 138-453 [facility] Comment on above: Performed By: #### P T, MG, FIB, BMP, IOCAL, PTT, CBC, LACTIC ####[address] [address])[phone] Director: Boo Vinson MD RBC (Bld) [#/Vol] 2.50 10*6/uL Low 4.21-5.77 [facility] Comment on above: Performed By: #### P T, MG, FIB, BMP, IOCAL, PTT, CBC, LACTIC ####[address] [phone] Director: Boo Vinson MD WBC (Bld) [#/Vol] 18.5 10*3/uL High 3.5-11.3 [facility] Comment on above: Performed By: #### P T, MG, FIB, BMP, IOCAL, PTT, CBC, LACTIC ####[facility] [address] [place] [address])[phone] Director: Boo Vinson MD Calcium, Ionicon 11-06-2023 Calcium [Moles/Vol] 1.10 mmol/L Low 1.13-1.33 [facility] Comment on above: Performed By: #### B MP, FIB, LIVP, LACTIC, MG, PTT, PT, IOCAL, CBC ####[facility] [address] [place] [address] Lab Director: Boo Vinson MD Calcium [Moles/Vol] 1.13 mmol/L Normal 1.13-1.33 [facility] Comment on above: Performed By: #### B MP, FIB, IOCAL, MG, PTT, PT, CBC, LACTIC ####[facility] [address] [place] [address])[phone] Director: Boo Vinson MD Calcium [Moles/Vol] 1.16 mmol/L Normal 1.13-1.33 [facility] Comment on above: Performed By: #### L ACTIC, PTT, AKASH, BMP, FIB, IOCAL, MG, LIVP, PT, CBC ####[facility] [address] [place] [address] Lab Director: Boo Vinson MD Fibrinogenon 11-06-2023 Fibrinogen 127 mg/dL Low 203-521 [facility] Comment on above: Performed By: #### B MP, FIB, IOCAL, MG, PTT, PT, CBC, LACTIC ####[address] [address] lab Director: Boo Vinson MD Fibrinogen 125 mg/dL Low 203-521 [facility] Comment on above: Performed By: #### L ACTIC, PTT, AKASH, BMP, FIB, IOCAL, MG, LIVP, PT, CBC ####[facility] [address] [place] [address] Lab Director: Boo Vinson MD Fibrinogen 117 mg/dL Low 203-521 [facility] Comment on above: Performed By: #### P T, MG, FIB, BMP, IOCAL, PTT, CBC, LACTIC ####[facility] [place], [place] [id number] Lab Director: Boo Vinson MD Global Hemostasis(TEG),POCon 11-06-2023 Angle TEG 67.9 deg Normal 63.0-78.0 [facility] Fibrinogen, Func TEG 11.9 mm Low 15.0-32.0 [facility] K (Kinetics) TEG 1.7 min Normal 0.8-2.1 [facility] MA (Max Clot) TEG 57.5 mm Normal 52.0-69.0 [facility] MA Rapid TEG 55.4 mm Normal 52.0-70.0 [facility] R TEG w/Hep 9.9 min High 4.3-8.3 [facility] R(Reaction Time) TEG 9.8 min High 4.6-9.1 [facility] Glucose (POC)on 11-06-2023 Glucose [Mass/Vol] 147 mg/dL High 74-100 [facility] Glucose [Mass/Vol] 158 mg/dL High 74-100 [facility] Glucose [Mass/Vol] 144 mg/dL High 74-100 [facility] Glucose [Mass/Vol] 134 mg/dL High 74-100 [facility] Hgb Free, Plasmaon 4 Hgb Free, Plasma 7.2 mg/dL Normal 0.0-9.7 [facility] Comment on above: Result Comment: (NOT E)Performed By: [address] [place], [place] [id number] Director: Edgardo Abdullahi MD, PhDCLIA Number: [id number] Performed By: #### F IB, CBC, BMP, MG, PTT, PT, LACTIC, IOCAL ####[facility] [address] [place] [address] Lab Director: Boo Vinson MD#### AHBFR ####[facility] [address] [place] [address] lab Director: Albert Jennings MD Lactic Acidon 11-06-2023 Lactic Acid,Whole Bl 1.3 mmol/L Normal 0.7-2.1 [facility] Comment on above: Performed By: #### B MP, FIB, LIVP, LACTIC, MG, PTT, PT, IOCAL, CBC ####[facility] [address] [place] [address] lab Director: Boo Vinson MD Lactic Acid,Whole Bl 1.1 mmol/L Normal 0.7-2.1 [facility] Comment on above: Performed By: #### B MP, FIB, IOCAL, MG, PTT, PT, CBC, LACTIC ####[facility] [address] [place] [address] lab Director: Boo Vinson MD Lactic Acid,Whole Bl 1.2 mmol/L Normal 0.7-2.1 [facility] Comment on above: Performed By: #### L ACTIC, PTT, AKASH, BMP, FIB, IOCAL, MG, LIVP, PT, CBC ####[facility] [address] [place] [address] lab Director: Boo Vinson MD Liver Profileon 11-06-2023 Albumin [Mass/Vol] 3.7 g/dL Normal 3.5-5.2 [facility] Comment on above: Performed By: #### L ACTIC, PTT, AKASH, BMP, FIB, IOCAL, MG, LIVP, PT, CBC ####[facility] [address] [place] [address] Lab Director: Boo Vinson MD Albumin/Glob Ratio 2.0 Normal 1.0-2.5 [facility] Comment on above: Performed By: #### L ACTIC, PTT, AKASH, BMP, FIB, IOCAL, MG, LIVP, PT, CBC ####[address] [place] [address] Lab Director: Boo Vinson MD Alkaline Phos 91 U/L Normal 40-129 [facility] Comment on above: Performed By: #### L ACTIC, PTT, AKASH, BMP, FIB, IOCAL, MG, LIVP, PT, CBC ####[address] [place], [place] [phone] Director: Boo Vinson MD ALT [Catalytic activity/Vol] 1968 U/L High 10-50 [facility] Comment on above: Performed By: #### L ACTIC, PTT, AKASH, BMP, FIB, IOCAL, MG, LIVP, PT, CBC ####[facility] [address] [place], [place] [phone] Director: Boo Vinson MD AST [Catalytic activity/Vol] 740 U/L High 10-50 [facility] Comment on above: Performed By: #### L ACTIC, PTT, AKASH, BMP, FIB, IOCAL, MG, LIVP, PT, CBC ####[facility] [address] [place], [place] [id number])[phone] Director: Boo Vinson MD Bilirubin [Mass/Vol] 0.8 mg/dL Normal 0.00-1.20 [facility] Comment on above: Performed By: #### L ACTIC, PTT, AKASH, BMP, FIB, IOCAL, MG, LIVP, PT, CBC ####[facility] [address] [place], [place] [phone] Director: Boo Vinson MD Bilirubin, Indirect 0.4 mg/dL Normal 0.0-1.0 [facility] Comment on above: Performed By: #### L ACTIC, PTT, AKASH, BMP, FIB, IOCAL, MG, LIVP, PT, CBC ####[facility] [address] [place], [place] [address])[phone] Director: Boo Vinson MD Bilirubin.indirect [Mass/Vol] 0.4 mg/dL High 0.00-0.30 [facility] Comment on above: Performed By: #### L ACTIC, PTT, AKASH, BMP, FIB, IOCAL, MG, LIVP, PT, CBC ####[facility] [address] [place], [place] [address])[phone] Director: Boo Vinson MD Globulin (S) [Mass/Vol] 1.9 g/dL Normal [facility] Comment on above: Performed By: #### L ACTIC, PTT, AKASH, BMP, FIB, IOCAL, MG, LIVP, PT, CBC ####[facility] [address] [place], [place] [address])[phone] Director: Boo Vinson MD Protein [Mass/Vol] 5.6 g/dL Low 6.6-8.7 [facility] Comment on above: Performed By: #### L ACTIC, PTT, AKASH, BMP, FIB, IOCAL, MG, LIVP, PT, CBC ####[facility] [address] [place], [place] [address])[phone] Director: Boo Vinson MD Magnesiumon 11-06-2023 Magnesium [Mass/Vol] 2.3 mg/dL Normal 1.6-2.6 [facility] Comment on above: Performed By: #### B MP, FIB, IOCAL, MG, PTT, PT, CBC, LACTIC ####[facility] [address] [place], [place] [address])[phone] Director: Boo Vinson MD Magnesium [Mass/Vol] 2.4 mg/dL Normal 1.6-2.6 [facility] Comment on above: Performed By: #### L ACTIC, PTT, AKASH, BMP, FIB, IOCAL, MG, LIVP, PT, CBC ####[address] [address])[phone] Director: Boo Vinson MD Magnesium [Mass/Vol] 2.3 mg/dL Normal 1.6-2.6 [facility] Comment on above: Performed By: #### P T, MG, FIB, BMP, IOCAL, PTT, CBC, LACTIC ####[address] [address])[phone] Director: Boo Vinson MD Non-Investigations Chief Cytologyon Case No: [id number] Normal [facility] Comment on above: Performed By: #### N SEAM FELLER ####[address] [address])[phone] Director: Boo Vinson MD PTon 11-06-2023 INR Coag (PPP) [Relative time] 2.8 {INR} Normal [facility] Comment on above: Result Comment: Ther apeutic Range: Moderate Anticoagulant Intensity: INR = 2.0-3.0 High Anticoagulant Intensity: INR = 2.5-3.5 Performed By: #### B MP, FIB, IOCAL, MG, PTT, PT, CBC, LACTIC ####[address] [phone] Director: Boo Vinson MD PT Coag (PPP) [Time] 28.3 s High 11.7-14.9 [facility] Comment on above: Performed By: #### B MP, FIB, IOCAL, MG, PTT, PT, CBC, LACTIC ####[address] [phone] Director: Boo Vinson MD INR Coag (PPP) [Relative time] 2.4 {INR} Normal [facility] Comment on above: Result Comment: Ther apeutic Range: Moderate Anticoagulant Intensity: INR = 2.0-3.0 High Anticoagulant Intensity: INR = 2.5-3.5 Performed By: #### L ACTIC, PTT, AKASH, BMP, FIB, IOCAL, MG, LIVP, PT, CBC ####[address] [address] lab Director: Boo Vinson MD PT Coag (PPP) [Time] 25.5 s High 11.7-14.9 [facility] Comment on above: Performed By: #### L ACTIC, PTT, AKASH, BMP, FIB, IOCAL, MG, LIVP, PT, CBC ####[place], [place] [address])[phone] Director: Boo Vinson MD INR Coag (PPP) [Relative time] 2.5 {INR} Normal [facility] Comment on above: Result Comment: Ther apeutic Range: Moderate Anticoagulant Intensity: INR = 2.0-3.0 High Anticoagulant Intensity: INR = 2.5-3.5 Performed By: #### P T, MG, FIB, BMP, IOCAL, PTT, CBC, LACTIC ####[place], [place] [address])[phone] Director: Boo Vinson MD PT Coag (PPP) [Time] 26.5 s High 11.7-14.9 [facility] Comment on above: Performed By: #### P T, MG, FIB, BMP, IOCAL, PTT, CBC, LACTIC ####[place], [place] [address])[phone] Director: Boo Vinson MD Phosphorus, Inorg.on 024 Phosphorus, Inorg. 2.5 mg/dL Normal 2.5-4.5 [facility] Comment on above: Performed By: #### L ACTIC, PTT, AKASH, BMP, FIB, IOCAL, MG, LIVP, PT, CBC ####[place], [place] [phone] Director: Boo Vinson MD Vancomycin,Randomon 11-06-19 24 Vancomycin 9.7 ug/mL Normal [facility] Comment on above: Result Comment: High er trough serum vancomycin concentrations of 15-20 ug/mL are recommended for complicated infections such as bacteremia, endocarditis, osteomyelitis, meningitis, and hospital acquired pneumonia. Performed By: #### V NCR, AT3A ####[facility] [address] [place], [place] [id number] lab Director: Boo Vinson MD#### AHBFR ####[facility] [address] [place] [address] lab Director: Albert Jennings MD Venous Bld Gas,POCon 024 HCO3 (Bld) [Moles/Vol] 27.6 mmol/L Normal 22.0-29.0 [facility] Oxygen saturation in Blood 70.3 % Normal 60.0-85.0 [facility] pCO2, Venous 39.8 mm Hg Low 41.0-51.0 [facility] pH,Venous 7.449 High 7.320-7.430 [facility] pO2, Venous 35.1 mm Hg Normal 30.0-50.0 [facility] Positive Base Excess (calc) 3.3 mmol/L High 0.0-3.0 [facility] XR CHEST PORTABLEon 11-06-19 24 XR CHEST PORTABLE Normal [facility] COMPREHENSIVE METABOLIC PANE Jordan 09-03-2023 Albumin [Mass/Vol] 4.1 g/dL Normal 3.2-5.3 [facility] Comment on above: Performed By: #### 2 089-1, 11299-7, 68937-8, [facility] #### [facility] ([id number]) [address], [address] [place] [address] ALP [Catalytic activity/Vol] 83 U/L Normal 39-130 [facility] Comment on above: Performed By: #### 2 089-1, 83334-5, 64557-4, CMP #### [facility] ([id number]) [address], [address] [place] [address] ALT [Catalytic activity/Vol] 50 U/L High 0-40 [facility] Comment on above: Performed By: #### 2 089-1, 26516-1, 80859-3, CMP #### [facility] ([id number]) [address], [address] [place] [address] Anion gap [Moles/Vol] 16 mmol/L High 5-15 [facility] Comment on above: Performed By: #### 2 089-1, 30479-9, 05235-3, CMP #### [facility] ([id number]) [address], [address] [place] [address] AST [Catalytic activity/Vol] 38 U/L Normal 0-41 [facility] Comment on above: Performed By: #### 2 089-1, 23636-4, 24050-7, CMP #### [facility] ([id number]) [address], [address] [place] [address] Bilirubin [Mass/Vol] 0.3 mg/dL Normal 0.3-1.2 [facility] Comment on above: Performed By: #### 2 089-1, 17288-4, 55095-8, CMP #### [facility] ([id number]) [address], [address] [place] [address] Calcium [Mass/Vol] 8.7 mg/dL Normal 8.5-10.5 [facility] Comment on above: Performed By: #### 2 089-1, 02811-0, 40553-8, CMP #### [facility] ([id number]) [address], [address] [place] [address] Chloride [Moles/Vol] 100 mmol/L Normal 98-109 [facility] Comment on above: Performed By: #### 2 089-1, 54097-0, 72648-1, CMP #### [facility] ([id number]) [address], [address] [place] [address] CO2 [Moles/Vol] 22 mmol/L Normal 22-32 [facility] Comment on above: Performed By: #### 2 089-1, 37521-0, 99989-2, CMP #### [facility] ([id number]) [address], [address] [place] [address] Creatinine [Mass/Vol] 1.21 mg/dL Normal 0.60-1.30 [facility] Comment on above: Result Comment: METH OD TRACEABLE TO IDMS STANDARD Performed By: #### 2 089-1, 76584-2, 64966-5, CMP #### [facility] ([id number]) [address], [facility] [address] [place] [address] GFR/1.73 sq M.predicted among non-blacks MDRD (S/P/Bld) [Vol rate/Area] 75 mL/min/{1.73_m2} Normal >59 [facility] Comment on above: Result Comment: Reported eGFR is based on the CKD-EPI 2020 equation that does not use a race coefficient. Performed By: #### 2 089-1, 45524-3, 79907-2, CMP #### [facility] ([id number]) [address], [address] [place] [address] Glucose [Mass/Vol] 110 mg/dL High 65-99 [facility] Comment on above: Performed By: #### 2 089-1, 11412-9, 97773-0, CMP #### [facility] ([id number]) [address], [address] [place] [address] Potassium [Moles/Vol] 3.9 mmol/L Normal 3.5-5.0 [facility] Comment on above: Performed By: #### 2 089-1, 89462-7, 91513-0, CMP #### [facility] ([id number]) [address], [address] [address] Protein [Mass/Vol] 7.1 g/dL Normal 6.0-8.0 [facility] Comment on above: Performed By: #### 2 089-1, 80958-3, 81434-0, CMP #### [facility] ([id number]) [address], [address] [address] Sodium [Moles/Vol] 138 mmol/L Normal 134-146 [facility] Comment on above: Performed By: #### 2 089-1, 88385-4, 95953-4, CMP #### [facility] ([id number]) [address] [address] Urea nitrogen [Mass/Vol] 22 mg/dL Normal 5-23 [facility] Comment on above: Performed By: #### 2 089-1, 44087-7, 21831-6, CMP #### [facility] ([id number]) [address] [address] DIRECT LDLon 09-03-2023 Cholesterol in LDL [Mass/Vol] 73 mg/dL Normal <130 [facility] Comment on above: Result Comment: LDL <100 mg/dL - Desirable LDL 130-159 mg/dL - Borderline High Risk LDL >160 mg/dL - High Risk Performed By: #### 2 089-1, 91550-5, 43246-0, CMP #### [facility] ([id number]) [address], [address] [address] Lipid 1996 panelon Cholesterol [Mass/Vol] 193 mg/dL Normal 150-200 [facility] Comment on above: Performed By: #### 2 089-1, 30667-2, 24448-7, CMP #### [facility] ([id number]) [address], [address] [place] [address] Cholesterol in HDL [Mass/Vol] 40 mg/dL Normal >39 [facility] Comment on above: Result Comment: HDL <40 mg/dL - High Risk HDL > or = 40mg/dL- Desirable HDL >60 mg/dL - Negative Risk Performed By: #### 2 089-1, 51214-2, 88522-0, CMP #### [facility] ([id number]) [address], [address] [place] [address] Cholesterol in VLDL [Mass/Vol] 140 mg/dL High 0-30 [facility] Comment on above: Performed By: #### 2 089-1, 37221-3, 48312-8, CMP #### [facility] ([id number]) [address], [address] [place] [address] CHOLESTEROL:HDL 4.8 Normal 1.0-5.0 [facility] Comment on above: Performed By: #### 2 089-1, 44700-3, 95726-1, CMP #### [facility] ([id number]) [address], [address] [place] [address] LDL (CALC) RESULT NOT REPORTED DUE TO HIGH TRIGLYCERIDE Normal <130 [facility] Comment on above: Performed By: #### 2 089-1, 60192-5, 00857-4, CMP #### [facility] ([id number]) [address], [address] [place] [address] Triglyceride [Mass/Vol] 699 mg/dL High 27-150 [facility] Comment on above: Performed By: #### 2 089-1, 28168-3, 28628-6, CMP #### [facility] ([id number]) [address] [facility], [address] [place] [address] Vitamin D+Metabolites [Mass/ Vol]on 09-03-2023 VITAMIN D 25 HYD TOT 21.3 ng/mL Low 30-100 [facility] Comment on above: Result Comment: Vitamin D status 25 [place] Vitamin D Deficiency <20 ng/mL Insufficiency 20-29 ng/mL Sufficiency 30-100 ng/mL Toxicity >100 ng/mL NOTE: A pediatric reference range has not been established by the sailing master of this kit. The [place] [employer] recommends a Vitamin D level of = or >20ng/mL in infants and children. Performed By: #### 2 089-1, 86155-7, 53604-4, CMP #### [facility] ([id number]) [address] [facility], [address] [place] [address] Cholesterol [Mass/volume] in Serum or PlasmaOrdered By: Bradford Fajardo on 06-08-2023 Cholesterol [Mass/Vol] 201 mg/dL 140-200 [facility] Comment on above: Chol less than 200 m g/dl low riskChol 201-239 mg/dl borderline riskChol 240 mg/dl and greater high risk Cholesterol in LDL Calc [Mas s/Vol]Ordered By: Bradford Fajardo on 06-08-2023 Cholesterol in LDL [Mass/Vol] 120 mg/dL 0-100 [facility] Comment on above: LDL ATP III CLASSIFI CATIONLDL less than 100 mg/dL OptimalLDL 100-129 mg/dL Near or above optimalLDL 130-159 mg/dL Borderline highLDL 160-189 mg/dL HighLDL greater than 189 mg/dL Very high Cholesterol in VLDL Calc [Ma ss/Vol]Ordered By: Bradford Fajardo on 06-08-2023 Cholesterol in VLDL [Mass/Vol] 31 mg/dL [facility] ECG 12 lead ECGon 06-08-2023 ECG 12 lead ECG [facility] [address] [place] [address] [place] [address] Electrocardiograph Report Signed Patient: Kandice Polanco MR#: [id number] : 1980 Acct:[id number] Age/Sex: 43 / M ADM Date: 06/07/23 Loc: Room: [address] [place] [address] Type: ADM IN Attending Dr: Bradford Fajardo [...] change was found Confirmed by [facility] ([id number] on 06/08/2023 9:56:45 AM Referred By: Electronically Signed By:MERVIN GUZMAN MD [facility] Transcribed By: MUS Signed By Eddie Guzman MD 06/08/23 0956 Normal [facility] Lipid Panelon 06-08-2023 Cholesterol [Mass/Vol] 201 mg/dL High 140-200 [facility] Comment on above: Result Comment: Chol less than 200 mg/dl low risk Chol 201-239 mg/dl borderline risk Chol 240 mg/dl and greater high risk Performed By: #### L IPID, TSH3 wRFLX, [id number] #### [facility] [address] Cholesterol in HDL [Mass/Vol] 50 mg/dL Normal - [facility] Comment on above: Result Comment: HDL CHOL ATP-III CLASSIFICATION Cardiovascular Risk HDL > or equal to 60 mg/dL LOW HDL < 40 mg/dL HIGH Performed By: #### L IPID, TSH3 wRFLX, [id number] #### [facility] [address] Cholesterol.total/Cho lesterol in HDL [Mass ratio] 4.0 {ratio} Normal <5.0 [facility] Comment on above: Performed By: #### L IPID, TSH3 wRFLX, [id number] #### [facility] [address] LDL Cholesterol,Calculate d 120 mg/dL High 0-100 [facility] Comment on above: Result Comment: LDL ATP III CLASSIFICATION LDL less than 100 mg/dL Optimal LDL 100-129 mg/dL Near or above optimal LDL 130-159 mg/dL Borderline high LDL 160-189 mg/dL High LDL greater than 189 mg/dL Very high Performed By: #### L IPID, TSH3 wRFLX, [id number] #### [facility] [address] Triglyceride w/Reflex 155 mg/dL High 0-149 [facility] Comment on above: Result Comment: TRIG ATP III CLASSIFICATION TRIG less than 150 mg/dL Normal TRIG 150-199 mg/dL Borderline high TRIG 200-500 mg/dL High TRIG greater than 500 mg/dL Very high Standard traceable to the Center for Disease Conrtrol and Prevention (CDC) test method. Performed By: #### L IPID, TSH3 wRFLX, [id number] #### [facility] [address] VLDL CHOLESTEROL 31 mg/dL Normal [facility] Comment on above: Performed By: #### L IPID, TSH3 wRFLX, [id number] #### [facility] [address] Serum or plasma high density lipoprotein (HDL) cholesterol measurementOrdered By: Bradford Fajardo on 06-08-2023 Cholesterol in HDL [Mass/Vol] 50 mg/dL 23-92 [facility] Comment on above: HDL CHOL ATP-III CLA SSIFICATION Cardiovascular RiskHDL > or equal to 60 mg/dL LOWHDL < 40 mg/dL HIGH Serum or plasma total choles terol/high density lipoprotein (HDL) cholesterol mass ratOrdered By: Bradford Fajardo on 06-08-2023 Cholesterol.total/Cho lesterol in HDL [Mass ratio] 4.0 {ratio} <5.0 [facility] Thyroid Stim Hormone w/Rflxo n 06-08-2023 Thyroid Stim Hormone w/Rflx 2.26 u[iU]/mL Normal 0.45-5.33 [facility] Comment on above: Performed By: #### L IPID, TSH3 wRFLX, [id number] #### [facility] [address] Thyrotropin [Units/volume] i n Serum or PlasmaOrdered By: Bradford Fajardo on 06-08-2023 TSH Qn 2.26 m[IU]/L 0.45-5.33 [facility] Triglyceride [Mass/volume] i n Serum or PlasmaOrdered By: Bradford Fajardo on 06-08-2023 Triglyceride [Mass/Vol] 155 mg/dL 0-149 [facility] Comment on above: TRIG ATP III CLASSIF ICATIONTRIG less than 150 mg/dL NormalTRIG 150-199 mg/dL Borderline highTRIG 200-500 mg/dL High TRIG greater than 500 mg/dL Very highStandard traceable to the Center for Disease Conrtrol and Prevention (CDC) test method. Vitamin D 25 Hydroxy Totalon 06-08-2023 Vitamin D 25 Hydroxy Total 28.8 ng/mL Low 30-100 [facility] Comment on above: Result Comment: JENNIFER MIN D STATUS 25([place])VITAMIN D RANGE (ng/mL) Deficient <20 Insufficient 20 to <30 Sufficient 30 to 100 Reference: Ferny MF,Agnes NC, Kaye SHELLEY, et al. Evaluation,treatment, and prevention of vitamin D deficiency; an Endocrine Society clinical practice guideline. JCEM. 2010; 96(7):1911-30. PERFORMED BY: [place] [address] PATHOLOGIST [employer] OPER[employer] KAJAL DURON M.D. Performed By: #### L IPID, TSH3 wRFLX, [id number] #### [facility] [address] [place] [id number] [facility] Vitamin D+Metabolites [Mass/ volume] in Serum or PlasmaOrdered By: Bradford Scotty on 06-08-2023 Vitamin D+Metabolites [Mass/Vol] 28.8 ng/mL 30-100 [facility] Comment on above: VITAMIN D STATUS 25( [place])VITAMIN D RANGE (ng/mL) Deficient <20 Insufficient 20 to <30Sufficient 30 to 100Reference: Ferny MF,Agnes NC, Kaye SHELLEY, et al. Evaluation,treatment, and prevention of vitamin D deficiency; an Endocrine Society clinical practice guideline. JCEM. 2010; 96(8):1911-30. Alanine aminotransferase [En zymatic activity/volume] in Serum or PlasmaOrdered By: Guillermina Torres on 06-07-2023 ALT [Catalytic activity/Vol] 42 U/L 7-52 [facility] Albumin [Mass/volume] in Ser um or Plasma by Bromocresol green (BCG) dye binding methoOrdered By: Guillermina Torres on 06-07-2023 Albumin BCG dye [Mass/Vol] 4.4 g/dL 3.5-5.7 [facility] Alkaline phosphatase [Enzyma tic activity/volume] in Serum or PlasmaOrdered By: Guillermina Torres on 06-07-2023 ALP [Catalytic activity/Vol] 92 U/L 34-104 [facility] Amphetamine Screen Ql (U)Ord ered By: Guillermina Torres on 06-07-2023 Amphetamines Ql (U) Positive Negative [facility] Aspartate aminotransferase [ Enzymatic activity/volume] in Serum or PlasmaOrdered By: Guillermina Torres on 06-07-2023 AST [Catalytic activity/Vol] 36 U/L 13-39 [facility] Barbiturates [Presence] in U rine by Screen methodOrdered By: Guillermina Torres on 06-07-2023 Barbiturates Screen Ql (U) Negative Negative [facility] Basophils Auto (Bld) [#/Vol] Ordered By: Guillermina Torres on 06-07-2023 Basophils (Bld) [#/Vol] 0.1 10*3/uL 0.0-0.2 [facility] Basophils/100 WBC Auto (Bld) Ordered By: Guillermina Torres on 06-07-2023 Basophils/100 WBC (Bld) 1.2 % . [facility] Benzodiazepines Screen Ql (U )Ordered By: Guillermina Torres on 06-07-2023 Benzodiazepines Ql (U) Negative Negative [facility] Benzoylecgonine [Presence] i n Urine by Screen methodOrdered By: Guillermina Torres on 06-07-2023 Benzoylecgonine Screen Ql (U) Negative Negative [facility] Bilirubin Test strip Ql (U)O rdered By: Guillermina Torres on 06-07-2023 Bilirubin Ql (U) Negative Negative [facility] Bilirubin.total [Mass/volume ] in Serum or PlasmaOrdered By: Guillermina Torres on 06-07-2023 Bilirubin [Mass/Vol] 0.5 mg/dL 0.3-1.0 [facility] Calcium [Mass/volume] in Ser um or PlasmaOrdered By: Guillermina Torres on 06-07-2023 Calcium [Mass/Vol] 8.8 mg/dL 8.6-10.3 [facility] Cannabinoids [Presence] in U rine by Screen methodOrdered By: Guillermina Torres on 06-07-2023 Cannabinoids Screen Ql (U) Positive Negative [facility] Comment on above: These are unconfirme d results and should not be used for legal purposes. Drug Cut-Off Concentration: AMPH 1000 ng/mL ELISA 200 ng/mL PETE 200 ng/mL COCM 300 ng/mL OP 300 ng/mL PCP 25 ng/mL THC 20 ng/mL Carbon dioxide, total [Moles /volume] in Serum or PlasmaOrdered By: Guillermina Torres on 06-07-2023 CO2 [Moles/Vol] 26.1 mmol/L 21.0-31.0 [facility] Chloride [Moles/volume] in S patrick or PlasmaOrdered By: Guillermina Torres on 06-07-2023 Chloride [Moles/Vol] 105 mmol/L 98-107 [facility] Color Auto (U)Ordered By: Aubrey Torres on 06-07-2023 Color (U) Yellow Yellow [facility] Complete Blood Count Auto Di ffon 06-07-2023 Basophils (Bld) [#/Vol] 0.1 10*3/uL Normal 0.0-0.2 [facility] Comment on above: Result Comment: PERF ORMED BY: [place] [address] PATHOLOGIST [employer] KAJAL DURON M.D. Performed By: #### L IPID, TSH3 wRFLX, [id number] #### [address] Basophils/100 WBC (Bld) 1.2 % Normal . [facility] Comment on above: Performed By: #### L IPID, TSH3 wRFLX, [id number] #### [address] Eosinophils (Bld) [#/Vol] 0.0 10*3/uL Normal 0.0-0.45 [facility] Comment on above: Performed By: #### L IPID, TSH3 wRFLX, [id number] #### [address] Eosinophils/100 WBC (Bld) 0.5 % Normal . [facility] Comment on above: Performed By: #### L IPID, TSH3 wRFLX, [id number] #### [address] Erythrocyte distribution width (RBC) [Ratio] 13.3 % Normal 12.0-14.8 [facility] Comment on above: Performed By: #### L IPID, TSH3 wRFLX, [id number] #### [address] Hematocrit (Bld) [Volume fraction] 45.1 % Normal 38.8-50.0 [facility] Comment on above: Performed By: #### L IPID, TSH3 wRFLX, [id number] #### [address] Hemoglobin (Bld) [Mass/Vol] 15.6 g/dL Normal 13.0-17.0 [facility] Comment on above: Performed By: #### L IPID, TSH3 wRFLX, [id number] #### [address] Lymphocytes (Bld) [#/Vol] 3.6 10*3/uL Normal 1.00-4.8 [facility] Comment on above: Performed By: #### L IPID, TSH3 wRFLX, [id number] #### [address] Lymphocytes/100 WBC (Bld) 42.2 % Normal . [facility] Comment on above: Performed By: #### L IPID, TSH3 wRFLX, [id number] #### [address] MCH (RBC) [Entitic mass] 32.6 pg Normal 27.5-35.2 [facility] Comment on above: Performed By: #### L IPID, TSH3 wRFLX, [id number] #### [address] MCV (RBC) [Entitic vol] 94.5 fL Normal 83.5-101 [facility] Comment on above: Performed By: #### L IPID, TSH3 wRFLX, [id number] #### [address] Mean Corpuscular HGB Conc 34.5 g/dL Normal 32.5-35.6 [facility] Comment on above: Performed By: #### L IPID, TSH3 wRFLX, [id number] #### [address] Monocytes (Bld) [#/Vol] 0.3 10*3/uL Normal 0.0-0.8 [facility] Comment on above: Performed By: #### L IPID, TSH3 wRFLX, [id number] #### [address] Monocytes/100 WBC (Bld) 19.75 % Normal 0.00-20.00 [facility] Comment on above: Performed By: #### L IPID, TSH3 wRFLX, [id number] #### [facility] [address] [place] [address] Monocytes/100 WBC (Bld) 3.6 % Normal . [facility] Comment on above: Performed By: #### L IPID, TSH3 wRFLX, [id number] #### [facility] [address] [place] [address] Neutrophils (Bld) [#/Vol] 4.5 10*3/uL Normal 1.8-7.7 [facility] Comment on above: Performed By: #### L IPID, TSH3 wRFLX, [id number] #### [address] Neutrophils/100 WBC (Bld) 52.5 % Normal . [facility] Comment on above: Performed By: #### L IPID, TSH3 wRFLX, [id number] #### [address] NRBC% 0.2 /100{WBC} Normal 0-0.5 [facility] Comment on above: Performed By: #### L IPID, TSH3 wRFLX, [id number] #### [address] Platelet mean volume (Bld) [Entitic vol] 7.2 fL Normal 6.6-10.1 [facility] Comment on above: Performed By: #### L IPID, TSH3 wRFLX, [id number] #### [facility] [address] [place] [address] [place] Platelets (Bld) [#/Vol] 320 10*3/uL Normal 150-450 [facility] Comment on above: Performed By: #### L IPID, TSH3 wRFLX, [id number] #### [facility] [address] [place] [address] [place] RBC (Bld) [#/Vol] 4.78 10*6/uL Normal 3.90-5.60 [facility] Comment on above: Performed By: #### L IPID, TSH3 wRFLX, [id number] #### [address] WBC (Bld) [#/Vol] 8.6 10*3/uL Normal 4.1-10.5 [facility] Comment on above: Performed By: #### L IPID, TSH3 wRFLX, [id number] #### [address] Comprehensive Metabolic Pane jordan 06-07-2023 Albumin [Mass/Vol] 4.4 g/dL Normal 3.5-5.7 [facility] Comment on above: Performed By: #### L IPID, TSH3 wRFLX, [id number] #### [address] Albumin/Globulin [Mass ratio] 1.5 {ratio} Normal [facility] Comment on above: Performed By: #### L IPID, TSH3 wRFLX, [id number] #### [address] ALP [Catalytic activity/Vol] 92 U/L Normal 34-104 [facility] Comment on above: Performed By: #### L IPID, TSH3 wRFLX, [id number] #### [address] ALT [Catalytic activity/Vol] 42 U/L Normal 7-52 [facility] Comment on above: Performed By: #### L IPID, TSH3 wRFLX, [id number] #### [address] Anion gap [Moles/Vol] 13.1 mmol/L Normal 6.0-15.0 [facility] Comment on above: Performed By: #### L IPID, TSH3 wRFLX, [id number] #### [address] AST [Catalytic activity/Vol] 36 U/L Normal 13-39 [facility] Comment on above: Performed By: #### L IPID, TSH3 wRFLX, [id number] #### [facility] [address] Bilirubin [Mass/Vol] 0.5 mg/dL Normal 0.3-1.0 [facility] Comment on above: Performed By: #### L IPID, TSH3 wRFLX, [id number] #### [facility] [address] Calcium [Mass/Vol] 8.8 mg/dL Normal 8.6-10.3 [facility] Comment on above: Performed By: #### L IPID, TSH3 wRFLX, [id number] #### [facility] [address] [place] [address] Chloride [Moles/Vol] 105 mmol/L Normal 98-107 [facility] Comment on above: Performed By: #### L IPID, TSH3 wRFLX, [id number] #### [facility] [address] [place] [address] CO2 [Moles/Vol] 26.1 mmol/L Normal 21.0-31.0 [facility] Comment on above: Performed By: #### L IPID, TSH3 wRFLX, [id number] #### [facility] [address] [place] [address] Creatinine [Mass/Vol] 1.14 mg/dL Normal 0.70-1.30 [facility] Comment on above: Performed By: #### L IPID, TSH3 wRFLX, [id number] #### [facility] [address] [place] [address] Creatinine Clr Calc Pharmacy 94.42 Normal [facility] Comment on above: Result Comment: PERF ORMED BY: [place] [address] PATHOLOGIST [employer]PER[employer] KAJAL DURON M.D. Performed By: #### L IPID, TSH3 wRFLX, [id number] #### [facility] [address] [place] [address] [place] GFR/1.73 sq M.predicted MDRD (S/P/Bld) [Vol rate/Area] mL/min/{1.73_m2} Normal [facility] Comment on above: Performed By: #### L IPID, TSH3 wRFLX, [id number] #### [facility] [address] Globulin (S) [Mass/Vol] 3.0 g/dL Normal [facility] Comment on above: Performed By: #### L IPID, TSH3 wRFLX, [id number] #### [address] Glucose [Mass/Vol] 82 mg/dL Normal 70-100 [facility] Comment on above: Result Comment: [facility] Glucose Reference Range is dependent on time and content of last meal. Glucose of more than 200 mg/dL in a nonstressed, ambulatory subject supports the diagnosis of Diabetes Mellitus. ADA recommended reference range Performed By: #### L IPID, TSH3 wRFLX, [id number] #### [facility] [address] [place] [address] Potassium [Moles/Vol] 4.2 mmol/L Normal 3.5-5.1 [facility] Comment on above: Performed By: #### L IPID, TSH3 wRFLX, [id number] #### [address] Protein [Mass/Vol] 7.4 g/dL Normal 6.4-8.9 [facility] Comment on above: Performed By: #### L IPID, TSH3 wRFLX, [id number] #### [facility] [address] [place] [address] [place] Sodium [Moles/Vol] 140 mmol/L Normal 136-145 [facility] Comment on above: Performed By: #### L IPID, TSH3 wRFLX, [id number] #### [address] Urea nitrogen [Mass/Vol] 20 mg/dL Normal 7-25 [facility] Comment on above: Performed By: #### L IPID, TSH3 wRFLX, [id number] #### [facility] [address] [place] [address] Creatinine [Mass/volume] in Serum or PlasmaOrdered By: Guillermina Torres on 06-07-2023 Creatinine [Mass/Vol] 1.14 mg/dL 0.70-1.30 [facility] Drug Screen,Urineon 06-07-20 Amphetamine Screen,Urine Positive High Negative [facility] Comment on above: Performed By: #### L IPID, TSH3 wRFLX, [id number] #### [facility] [address] [place] [address] [place] Barbiturate Screen,Urine Negative Normal Negative [facility] Comment on above: Performed By: #### L IPID, TSH3 wRFLX, [id number] #### [facility] [address] [place] [address] Benzodiazepines Screen,Urine Negative Normal Negative [facility] Comment on above: Performed By: #### L IPID, TSH3 wRFLX, [id number] #### [facility] [address] [place] [address] [place] Cannabinoid Screen,Urine Positive High Negative [facility] Comment on above: Result Comment: Thes e are unconfirmed results and should not be used for legal purposes. Drug Cut-Off Concentration: AMPH 1000 ng/mL ELISA 200 ng/mL PETE 200 ng/mL COCM 300 ng/mL OP 300 ng/mL PCP 25 ng/mL THC 20 ng/mL PERFORMED BY: [place] [address] PATHOLOGIST [employer] KAJAL DURON M.D. Performed By: #### L IPID, TSH3 wRFLX, [id number] #### [facility] [address] [place] [address] [place] Cocaine Screen,Urine Negative Normal Negative [facility] Comment on above: Performed By: #### L IPID, TSH3 wRFLX, [id number] #### [facility] [address] [place] [address] [place] Opiate Screen,Urine Negative Normal Negative [facility] Comment on above: Performed By: #### L IPID, TSH3 wRFLX, [id number] #### [facility] [address] Phencyclidine Screen,Urine Negative Normal Negative [facility] Comment on above: Performed By: #### L IPID, TSH3 wRFLX, [id number] #### [facility] [address] [place] [address] [place] Eosinophils Auto (Bld) [#/Vo l]Ordered By: Guillermina Torres on 06-07-2023 Eosinophils (Bld) [#/Vol] 0.0 10*3/uL 0.0-0.45 [facility] Eosinophils/100 WBC Auto (Bl d)Ordered By: Guillermina Torres on 06-07-2023 Eosinophils/100 WBC (Bld) 0.5 % . [facility] Erythrocyte distribution wid th Auto (RBC) [Ratio]Ordered By: Guillermina Torres on 06-07-2023 Erythrocyte distribution width (RBC) [Ratio] 13.3 % 12.0-14.8 [facility] Ethanol [Mass/volume] in Ser um or PlasmaOrdered By: Guillermina Torres on 06-07-2023 Ethanol [Mass/Vol] 310 mg/dL [facility] Ethanol [Mass/Vol] 0.310 % [facility] Ethyl Alcohol Profileon Ethanol [Mass/Vol] 310 mg/dL Normal [facility] Comment on above: Performed By: #### L IPID, TSH3 wRFLX, [id number] #### [facility] [address] [place] [address] Percent Ethanol 0.310 % Normal [facility] Comment on above: Result Comment: PERF ORMED BY: [place] [address] PATHOLOGIST [employer]PER[employer] KAJAL DURON M.D. Performed By: #### L IPID, TSH3 wRFLX, [id number] #### [facility] [address] [place] [address] Globulin Calc (S) [Mass/Vol] Ordered By: Guillermina Torres on 06-07-2023 Globulin (S) [Mass/Vol] 3.0 g/dL [facility] Glucose [Mass/volume] in Ser um or PlasmaOrdered By: Guillermina Torres on 06-07-2023 Glucose [Mass/Vol] 82 mg/dL 70-100 [facility] Comment on above: ADA recommended refe rence rangeRandom Glucose Reference Range is dependent on time and content of last meal. Glucose of more than 200 mg/dL in a nonstressed, ambulatory subject supports the diagnosis of Diabetes Mellitus. Hematocrit Auto (Bld) [Volum e fraction]Ordered By: Guillermina Torres on 06-07-2023 Hematocrit (Bld) [Volume fraction] 45.1 % 38.8-50.0 [facility] Hemoglobin [Mass/volume] in BloodOrdered By: Guillermina Torres on 06-07-2023 Hemoglobin (Bld) [Mass/Vol] 15.6 g/dL 13.0-17.0 [facility] Ketones Auto test strip (U) [Mass/Vol]Ordered By: Guillermina Torres on 06-07-2023 Ketones (U) [Mass/Vol] Trace Negative [facility] Leukocytes [#/volume] correc gisella for nucleated erythrocytes in Blood by Automated counOrdered By: Guillermina Torres on 06-07-2023 WBC corrected for nucl RBC Auto (Bld) [#/Vol] 8.6 10*3/uL 4.1-10.5 [facility] Lymphocytes Auto (Bld) [#/Vo l]Ordered By: Guillermina Torres on 06-07-2023 Lymphocytes (Bld) [#/Vol] 3.6 10*3/uL 1.00-4.8 [facility] Lymphocytes/100 WBC Auto (Bl d)Ordered By: Guillermina Torres on 06-07-2023 Lymphocytes/100 WBC (Bld) 42.2 % . [facility] MCH Auto (RBC) [Entitic mass ]Ordered By: Guillermina Torres on 06-07-2023 MCH (RBC) [Entitic mass] 32.6 pg 27.5-35.2 [facility] MCHC Auto (RBC) [Mass/Vol]Or dered By: Guillermina Torres on 06-07-2023 MCHC (RBC) [Mass/Vol] 34.5 g/dL 32.5-35.6 [facility] MCV Auto (RBC) [Entitic vol] Ordered By: Guillermina Torres on 06-07-2023 MCV (RBC) [Entitic vol] 94.5 fL 83.5-101 [facility] Monocyte distribution width [Entitic volume] in Blood by AutomatedOrdered By: Guillermina Torres on 06-07-2023 Monocyte distribution width Auto (Bld) [Entitic vol] 19.75 % 0.00-20.00 [facility] Monocytes Auto (Bld) [#/Vol] Ordered By: Guillermina Torres on 06-07-2023 Monocytes (Bld) [#/Vol] 0.3 10*3/uL 0.0-0.8 [facility] Monocytes/100 WBC Auto (Bld) Ordered By: Guillermina Torres on 06-07-2023 Monocytes/100 WBC (Bld) 3.6 % . [facility] Neutrophils Auto (Bld) [#/Vo l]Ordered By: Guillermina Torres on 06-07-2023 Neutrophils (Bld) [#/Vol] 4.5 10*3/uL 1.8-7.7 [facility] Neutrophils/100 WBC Auto (Bl d)Ordered By: Guillermina Torres on 06-07-2023 Neutrophils/100 WBC (Bld) 52.5 % . [facility] Nitrite Test strip Ql (U)Ord ered By: Guillermina Torres on 06-07-2023 Nitrite Ql (U) Negative Negative [facility] No Panel InformationOrdered By: Guillermina Torres on 06-07-2023 Estimated GFR (CKD-EPI) > 60.0 mL/Min [facility]acy Creatinine Clearance (Chem 94.42 [facility] Nucleated erythrocytes [Pres ence] in Blood by Automated countOrdered By: Guillermina Torres on 06-07-2023 Nucleated RBC Auto Ql (Bld) 0.2 /100{WBC} 0-0.5 [facility] Opiates [Presence] in Urine by Screen methodOrdered By: Guillermina Torres on 06-07-2023 Opiates Screen Ql (U) Negative Negative [facility] Phencyclidine Screen Ql (U)O rdered By: Guillermina Torres on 06-07-2023 Phencyclidine Ql (U) Negative Negative [facility] Platelet mean volume Auto (B ld) [Entitic vol]Ordered By: Guillermina Torres on 06-07-2023 Platelet mean volume (Bld) [Entitic vol] 7.2 fL 6.6-10.1 [facility] Platelets Auto (Bld) [#/Vol] Ordered By: Guillermina Torres on 06-07-2023 Platelets (Bld) [#/Vol] 320 10*3/uL 150-450 [facility] Potassium [Moles/volume] in Serum or PlasmaOrdered By: Guillermina Torres on 06-07-2023 Potassium [Moles/Vol] 4.2 mmol/L 3.5-5.1 [facility] Protein Auto test strip (U) [Mass/Vol]Ordered By: Guillermina Torres on 06-07-2023 Protein (U) [Mass/Vol] Negative Negative [facility] Protein [Mass/volume] in Ser um or PlasmaOrdered By: Guillermina Torres on 06-07-2023 Protein [Mass/Vol] 7.4 g/dL 6.4-8.9 [facility] RBC Auto (Bld) [#/Vol]Ordere d By: Guillermina Torres on 06-07-2023 RBC (Bld) [#/Vol] 4.78 10*6/uL 3.90-5.60 [facility] Serum or plasma albumin/glob ulin mass ratioOrdered By: Guillermina Torres on 06-07-2023 Albumin/Globulin [Mass ratio] 1.5 {ratio} [facility] Serum or plasma anion gap de terminationOrdered By: Guillermina Torres on 06-07-2023 Anion gap [Moles/Vol] 13.1 mmol/L 6.0-15.0 [facility] Sodium [Moles/volume] in Ser um or PlasmaOrdered By: Guillermina Torres on 06-07-2023 Sodium [Moles/Vol] 140 mmol/L 136-145 [facility] Specific gravity Auto test s trip (U) [Rel density]Ordered By: Guillermina Torres on 06-07-2023 Specific gravity (U) [Rel density] 1.020 1.001-1.030 [facility] Urea nitrogen [Mass/volume] in Serum or PlasmaOrdered By: Guillermina Torres on 06-07-2023 Urea nitrogen [Mass/Vol] 20 mg/dL 03-26 [facility] Urinalysison 06-07-2023 Appearance (U) Clear Normal Clear [facility] Comment on above: Order Comment: Name Collection Type:: Clean-Voided Midstream Performed By: #### L IPID, TSH3 wRFLX, [id number] #### [facility] [address] [place] [address] [place] Bilirubin,Urine Negative Normal Negative [facility] Comment on above: Order Comment: Name Collection Type:: Clean-Voided Midstream Performed By: #### L IPID, TSH3 wRFLX, [id number] #### [facility] [address] [place] [address] [place] Color (U) Yellow Normal Yellow [facility] Comment on above: Order Comment: Name Collection Type:: Clean-Voided Midstream Performed By: #### L IPID, TSH3 wRFLX, [id number] #### [facility] [address] [place] [address] [place] Glucose Ql (U) Normal Normal Normal [facility] Comment on above: Order Comment: Name Collection Type:: Clean-Voided Midstream Performed By: #### L IPID, TSH3 wRFLX, [id number] #### [facility] [address] [place] [address] [place] Ketones Ql (U) Trace High Negative [facility] Comment on above: Order Comment: Name Collection Type:: Clean-Voided Midstream Performed By: #### L IPID, TSH3 wRFLX, [id number] #### [facility] [address] [place] [address] [place] Leukocyte esterase Test strip Ql (U) Negative Normal Negative [facility] Comment on above: Order Comment: Name Collection Type:: Clean-Voided Midstream Performed By: #### L IPID, TSH3 wRFLX, [id number] #### [facility] [address] [place] [address] [place] Nitrite,Urine Negative Normal Negative [facility] Comment on above: Order Comment: Name Collection Type:: Clean-Voided Midstream Performed By: #### L IPID, TSH3 wRFLX, [id number] #### [address] Occult Blood,Urine Negative Normal Negative [facility] Comment on above: Order Comment: Name Collection Type:: Clean-Voided Midstream Result Comment: PERF ORMED BY: [place] [address] PATHOLOGIST [employer] OPER[employer] KAJAL DURON M.D. Performed By: #### L IPID, TSH3 wRFLX, [id number] #### [address] pH (U) 5.5 [pH] Normal 5.0-9.0 [facility] Comment on above: Order Comment: Name Collection Type:: Clean-Voided Midstream Performed By: #### L IPID, TSH3 wRFLX, [id number] #### [facility] [address] [place] [address] [place] Protein,Urine Negative Normal Negative [facility] Comment on above: Order Comment: Name Collection Type:: Clean-Voided Midstream Performed By: #### L IPID, TSH3 wRFLX, [id number] #### [facility] [address] [place] [address] [place] Specificy Delevan,Urine 1.020 Normal 1.001-1.030 [facility] Comment on above: Order Comment: Name Collection Type:: Clean-Voided Midstream Performed By: #### L IPID, TSH3 wRFLX, [id number] #### [facility] [address] [place] [address] [place] Urobilinogen,Urine Normal Normal Normal [facility] Comment on above: Order Comment: Name Collection Type:: Clean-Voided Midstream Performed By: #### L IPID, TSH3 wRFLX, [id number] #### [address] [place] [address] [facility] Urine clarity by refractomet ry automatedOrdered By: Guillermina Torres on 06-07-2023 Clarity Refractometry automated (U) Clear Clear [facility] Urine glucose measurement by automated test strip (mass/volume)Ordered By: Guillermina Torres on 06-07-2023 Glucose Auto test strip (U) [Mass/Vol] Normal mg/dL Normal [facility] Urine hemoglobin detection b y automated test stripOrdered By: Guillermina Torres on 06-07-2023 Hemoglobin Auto test strip Ql (U) Negative Negative [facility] Urine leukocyte esterase det ection by automated test stripOrdered By: Guillermina Torres on 06-07-2023 Leukocyte esterase Auto test strip Ql (U) Negative Negative [facility] Urobilinogen Auto test strip (U) [Mass/Vol]Ordered By: Guillermina Torres on 06-07-2023 Urobilinogen (U) [Mass/Vol] Normal mg/dL Normal [facility] WBC Auto (Bld) [#/Vol]Ordere d By: Guillermina Torres on 06-07-2023 WBC (Bld) [#/Vol] 8.6 10*3/uL 4.1-10.5 [facility] pH Auto test strip (U)Ordere d By: Guillermina Torres on 06-07-2023 pH (U) 5.5 [pH] 5.0-9.0 [facility] CBC W Differential panel, md thod unspecified (Bld)on 05-02-2023 Basophils (Bld) [#/Vol] 0.04 10*3/uL [facility] Basophils/100 WBC (Bld) 0.70 % 0 - 1 % [facility] Differential cell count method Nom (Bld) AUTO DIFF [facility] Eosinophils (Bld) [#/Vol] 0.09 10*3/uL [facility] Eosinophils/100 WBC (Bld) 1.50 % 0 - 3 % [facility] Erythrocyte distribution width (RBC) [Entitic vol] 45.4 fL [facility] Erythrocyte distribution width (RBC) [Ratio] 13.0 % 11.7 - 15.0 % [facility] Hematocrit (Bld) [Volume fraction] 42.5 % 41 - 50 % [facility] Hemoglobin (Bld) [Mass/Vol] 14.9 g/dL [facility] Immature granulocytes (Bld) [#/Vol] 0.01 10*3/uL [facility] Interpretation and review of laboratory results Abnormal [facility] Lymphocytes (Bld) [#/Vol] 1.76 10*3/uL [facility] Lymphocytes/100 WBC (Bld) 30.10 % 20 - 40 % [facility] MCH (RBC) [Entitic mass] 33.3 pg 26 - 34 PG [facility] MCHC (RBC) [Mass/Vol] 35.1 % 31 - 37 % [facility] MCV (RBC) [Entitic vol] 95.1 fL [facility] Monocytes (Bld) [#/Vol] 0.61 10*3/uL [facility] Monocytes/100 WBC (Bld) 10.40 % High 0 - 8 % [facility] Neutrophils (Bld) [#/Vol] 3.33 10*3/uL K/UL [facility] Comment on above: Performed at [facility] [address] [facility] [address] Neutrophils.immature/ 100 WBC (Bld) 0.20 % 0.0 - 1.0 % [facility] Nucleated RBC/100 WBC (Bld) [Ratio] 0 % 0 /100 WBC [facility] Platelet mean volume (Bld) [Entitic vol] 10.0 fL [facility] Platelets (Bld) [#/Vol] 217 10*3/uL [facility] RBC (Bld) [#/Vol] 4.47 10*6/uL [facility] Segmented neutrophils/100 WBC (Bld) 57.10 % 50 - 70 % [facility] WBC (Bld) [#/Vol] 5.8 10*3/uL [facility] Comprehensive metabolic 2000 panelon 05-02-2023 Albumin [Mass/Vol] 3.4 g/dL [facility] Albumin/Globulin [Mass ratio] 1.4 {ratio} Low [facility] ALP (Bld) [Catalytic activity/Vol] 96 U/L 35 - 125 U/L [facility] ALT [Catalytic activity/Vol] 39 U/L 5 - 40 U/L [facility] Anion gap [Moles/Vol] 12 mmol/L [facility] AST [Catalytic activity/Vol] 38 U/L 5 - 40 U/L [facility] Bilirubin [Mass/Vol] 0.6 mg/dL [place] Calcium [Mass/Vol] 8.7 mg/dL [facility] Chloride [Moles/Vol] 104 mmol/L [place] CO2 [Moles/Vol] 24 mmol/L [facility] Creatinine [Mass/Vol] 1.0 mg/dL [facility] GFR/1.73 sq M.predicted MDRD (S/P/Bld) [Vol rate/Area] 95 mL/min/{1.73_m2} mL/min/1.73 m2 [facility] Comment on above: CALCULATIONS OF ISABEL MATED GFR ARE PERFORMED USING THE 2020 CKD-EPI STUDY REFIT EQUATION WITHOUT THE RACE VARIABLE FOR THE IDMS-TRACEABLE CREATININE METHODS. https://jasn.asnjournals.org/content//ASN.405210 8776 Performed at [place] [address] Globulin (S) [Mass/Vol] 2.5 g/dL [facility] Glucose [Mass/Vol] 99 mg/dL [facility] Interpretation and review of laboratory results Abnormal [facility] Potassium [Moles/Vol] 4.1 mmol/L [facility] Protein [Mass/Vol] 5.9 g/dL [facility] Sodium [Moles/Vol] 140 mmol/L [facility] Urea nitrogen [Mass/Vol] 14 mg/dL [facility] Urea nitrogen/Creatinine [Mass ratio] 14.0 mg/mg [facility] - Chemistry and C hemistry - challengeon 05-02-2023 Albumin [Mass/Vol] Albumin 3.4 GM/DL L (3.5-5.0 GM/DL) Low 3.5 - 5.0 GM/DL [facility] Albumin/Globulin [Mass ratio] Albumin Globulin Ratio 1.4 RATIO L (1.5-3.0 RATIO) Low 1.5 - 3.0 RATIO [facility] ALP (Bld) [Catalytic activity/Vol] Alk Phosphatase 96 U/L (35-125 U/L) 35 - 125 U/L [facility] ALT [Catalytic activity/Vol] ALT 39 U/L (5-40 U/L) 5 - 40 U/L [facility] Anion gap [Moles/Vol] Anion Gap 12 MMOL/ L (0-19 MMOL/L) 0 - 19 MMOL/L [facility] AST [Catalytic activity/Vol] AST 38 U/L (5-40 U/L) 5 - 40 U/L [facility] Bilirubin [Mass/Vol] Total Bilirubin 0.6 MG/DL (0.1-1.2 MG/DL) 0.1 - 1.2 MG/DL [facility] Calcium [Mass/Vol] Calcium 8.7 MG/DL (8.5-10.4 MG/DL) 8.5 - 10.4 MG/DL [facility] Chloride [Moles/Vol] Chloride 104 MMOL/L (97-107 MMOL/L) 97 - 107 MMOL/L [facility] CO2 [Moles/Vol] Carbon Dioxide 24 MM OL/L (24-31 MMOL/L) 24 - 31 MMOL/L [facility] Creatinine [Mass/Vol] Creatinine R 1.0 M G/DL (0.4-1.6 MG/DL) 0.4 - 1.6 MG/DL [facility] [place] GFR/1.73 sq M.predicted MDRD (S/P/Bld) [Vol rate/Area] EGFR 95 mL/min/1.73 m2 (Reference Range: not available) CALCULATIONS OF ESTIMATED GFR ARE PERFORMED USING THE 2020 CKD-EPI STUDY REFIT EQUATION WITHOUT THE RACE VARIABLE FOR THE IDMS-TRACEABLE CREATININE METHODS. https://jasn.asnjournals .org/content/05/24/ASN.2561590826 Performed at [address] [address] [place] Globulin (S) [Mass/Vol] Globulin 2.5 G/DL (1.9-3.7 G/DL) 1.9 - 3.7 G/DL [facility] [place] Glucose [Mass/Vol] Glucose 99 MG/DL (65 -99 MG/DL) 65 - 99 MG/DL [facility] [place] Potassium [Moles/Vol] Potassium R 4.1 MM OL/L (3.4-5.1 MMOL/L) 3.4 - 5.1 MMOL/L [facility] [place] Protein [Mass/Vol] Total Protein 5.9 G/ DL (5.9-7.9 G/DL) 5.9 - 7.9 G/DL [facility] [place] Sodium [Moles/Vol] Sodium 140 MMOL/L (133-145 MMOL/L) 133 - 145 MMOL/L [facility] Urea nitrogen [Mass/Vol] BUN 14 MG/DL (8-25 MG/DL) 8 - 25 MG/DL [facility] Urea nitrogen/Creatinine [Mass ratio] BUN Creatinine Ratio 14.0 RATIO (8-21 RATIO) 8 - 21 RATIO [facility] - Hematology and Cell countson 05-02-2023 Basophils (Bld) [#/Vol] Abs Baso 0.04 K/UL (0.00-0.22 K/UL) 0.00 - 0.22 K/UL [facility] Basophils/100 WBC (Bld) Basophil 0.70 % (0-1 %) 0 - 1 % [facility] Differential cell count method Nom (Bld) Diff Type AUTO DIFF (Reference Range: not available) [facility] Eosinophils (Bld) [#/Vol] Abs Eos 0.09 K/UL (0-0.45 K/UL) 0 - 0.45 K/UL [facility] Eosinophils/100 WBC (Bld) Eosinophil 1.50 % (0-3 %) 0 - 3 % [facility] Erythrocyte distribution width (RBC) [Entitic vol] RDW SD 45.4 FL (37.0-54.0 FL) 37.0 - 54.0 FL [facility] Erythrocyte distribution width (RBC) [Ratio] RDW CV 13.0 % (11.7-15.0 %) 11.7 - 15.0 % [facility] Hematocrit (Bld) [Volume fraction] HCT 42.5 % (41-50 %) 41 - 50 % [facility] Hemoglobin (Bld) [Mass/Vol] HGB 14.9 GM/DL (13.5-16.5 GM/DL) 13.5 - 16.5 GM/DL [facility] Immature granulocytes (Bld) [#/Vol] Abs Imm Neut 0.01 K/UL (0.0-0.1 K/UL) 0.0 - 0.1 K/UL [facility] Lymphocytes (Bld) [#/Vol] Abs Lymph 1.76 K/UL (1.2-3.2 K/UL) 1.2 - 3.2 K/UL [facility] Lymphocytes/100 WBC (Bld) Lymphocyte 30.10 % (20-40 %) 20 - 40 % [facility] MCH (RBC) [Entitic mass] MCH 33.3 PG (26-34 PG) 26 - 34 PG [facility] MCHC (RBC) [Mass/Vol] MCHC 35.1 % (31-37 %) 31 - 37 % [facility] MCV (RBC) [Entitic vol] MCV 95.1 FL (80-100 FL) 80 - 100 FL [facility] Monocytes (Bld) [#/Vol] Abs [place] 0.61 K/UL (0-0.8 K/UL) 0 - 0.8 K/UL [facility] Monocytes/100 WBC (Bld) Monocyte 10.40 % H (0-8 %) High 0 - 8 % [facility] Neutrophils (Bld) [#/Vol] Abs.Neut.Calculated 3.33 K/UL (Reference Range: not available) Performed at [address] [address] [facility] Neutrophils (Bld) [#/Vol] Abs Neut 3.33 K/UL (1.8-7.7 K/UL) 1.8 - 7.7 K/UL [facility] Neutrophils.immature/ 100 WBC (Bld) Immature Neut % 0.20 % (0.0-1.0 %) 0.0 - 1.0 % [facility] Nucleated RBC/100 WBC (Bld) [Ratio] NRBCs 0 /100 WBC (0 /100 WBC) [facility] Platelet mean volume (Bld) [Entitic vol] MPV 10.0 CU (7.0-12.6 CU) 7.0 - 12.6 CU [facility] Platelets (Bld) [#/Vol] PLT 217 K/UL (150-450 K/UL) 150 - 450 K/UL [facility] RBC (Bld) [#/Vol] RBC 4.47 M/UL L (4.5 -5.5 M/UL) Low 4.5 - 5.5 M/UL [facility] Segmented neutrophils/100 WBC (Bld) Granulocyte 57.10 % (50-70 %) 50 - 70 % [facility] WBC (Bld) [#/Vol] WBC 5.8 K/UL (4.5-11 .0 K/UL) 4.5 - 11.0 K/UL [facility] [place] Acetaminophenon 05-01-2023 Acetaminophen [Mass/Vol] 5.0 ug/mL [facility] Comment on above: LESS THAN Performed at [facility], [place] [address] [facility] [address] Alcoholon 05-01-2023 Ethanol [Mass/Vol] 0.085 mg/dL High [facility] Comment on above: Performed at [facility] [address] [facility] [address] Basic metabolic 2000 panelon 05-01-2023 Anion gap [Moles/Vol] 20 mmol/L High [facility] Calcium [Mass/Vol] 9.6 mg/dL [facility] Chloride [Moles/Vol] 96 mmol/L Low [place] Comment on above: RESULT CHECKED CO2 [Moles/Vol] 20 mmol/L [facility] Comment on above: RESULT CHECKED Creatinine [Mass/Vol] 1.7 mg/dL High [facility] GFR/1.73 sq M.predicted MDRD (S/P/Bld) [Vol rate/Area] 50 mL/min/{1.73_m2} mL/min/1.73 m2 [facility] Comment on above: CALCULATIONS OF ISABEL MATED GFR ARE PERFORMED USING THE 2020 CKD-EPI STUDY REFIT EQUATION WITHOUT THE RACE VARIABLE FOR THE IDMS-TRACEABLE CREATININE METHODS. https://clarkesn.asnjournals.org/content//ASN.237659 3576 Performed at [facility], [place], [facility] [address] [facility] [address] Glucose [Mass/Vol] 100 mg/dL High [facility] Potassium [Moles/Vol] SAMPLE HEMOLYZED T O BE RECOLLECTED [facility] Sodium [Moles/Vol] 136 mmol/L [facility] Comment on above: RESULT CHECKED Urea nitrogen [Mass/Vol] 20 mg/dL [facility] Urea nitrogen/Creatinine [Mass ratio] 11.8 mg/mg [facility] CBC W Differential panel, md thod unspecified (Bld)on 05-01-2023 Basophils (Bld) [#/Vol] 0.05 10*3/uL [facility] Basophils/100 WBC (Bld) 0.70 % 0 - 1 % [facility] Differential cell count method Nom (Bld) AUTO DIFF [facility] Eosinophils (Bld) [#/Vol] 0.05 10*3/uL [facility] Eosinophils/100 WBC (Bld) 0.70 % 0 - 3 % [facility] Erythrocyte distribution width (RBC) [Entitic vol] 44.3 fL [facility] Erythrocyte distribution width (RBC) [Ratio] 13.0 % 11.7 - 15.0 % [facility] Hematocrit (Bld) [Volume fraction] 44.1 % 41 - 50 % [facility] Hemoglobin (Bld) [Mass/Vol] 16.0 g/dL [facility] Immature granulocytes (Bld) [#/Vol] 0.00 10*3/uL [facility] Interpretation and review of laboratory results Abnormal [facility] Lymphocytes (Bld) [#/Vol] 2.22 10*3/uL [facility] Lymphocytes/100 WBC (Bld) 31.30 % 20 - 40 % [facility] MCH (RBC) [Entitic mass] 33.6 pg 26 - 34 PG [facility] MCHC (RBC) [Mass/Vol] 36.3 % 31 - 37 % [facility] MCV (RBC) [Entitic vol] 92.6 [facility] Monocytes (Bld) [#/Vol] 0.66 10*3/uL [facility] Monocytes/100 WBC (Bld) 9.30 % High 0 - 8 % [facility] Neutrophils (Bld) [#/Vol] 4.12 10*3/uL K/UL [facility] Comment on above: Performed at [facility] [address] [facility] [address] Neutrophils.immature/ 100 WBC (Bld) 0.00 % 0.0 - 1.0 % [facility] Nucleated RBC/100 WBC (Bld) [Ratio] 0 % 0 /100 WBC [facility] Platelet mean volume (Bld) [Entitic vol] 9.5 [facility] Platelets (Bld) [#/Vol] 262 10*3/uL [facility] RBC (Bld) [#/Vol] 4.76 10*6/uL [facility] Segmented neutrophils/100 WBC (Bld) 58.00 % 50 - 70 % [facility] WBC (Bld) [#/Vol] 7.1 10*3/uL [facility] CT Cervical spine WO contras ton 05-01-2023 Helga Meek MD - 05/15/2023 PROCEDURE: SPINE CERVICAL WO CONTRAST - WCT 3025 REASON FOR EXAM: falls; etoh RESULT: Patient Name: KANDICE POLANCO STUDY: SPINE CERVICAL WO CONTRAST; 05/01/2023 6:06 pm INDICATION: falls; etoh; COMPARISON: None available. ACCESSION NUMBER(S): [id number] ORDERING CLINICIAN: TOMASA TINAJERO TECHNIQUE: EXAMINATION: Spiral, [...] OF ACUTE CERVICAL SPINE FRACTURE. Dictation workstation: [id number] This exam is available in DICOM format [...] by/Date: NO ADDENDUM Addendum Electronically Signed by/Date: [facility] Work Phone: CT Cervical spine WO contras tOrdered By: Helga Meek on 05-01-2023 [facility] Work Phone: CT Head WO contraston 2022 Helga Meek MD - 05/15/2023 PROCEDURE: BRAIN WO CONTRAST - WCT 3000 REASON FOR EXAM: falls; etoh RESULT: Patient Name: KANDICE POLANCO STUDY: BRAIN WO CONTRAST; 05/01/2023 6:06 pm INDICATION: falls; etoh. COMPARISON: No comparison exams available. ACCESSION NUMBER(S): [id number] ORDERING CLINICIAN: TOMASA TINAJERO TECHNIQUE: CT axial [...] intracranial process. Paranasal sinus disease. Dictation workstation: [id number] This exam is available in DICOM format [...] by/Date: NO ADDENDUM Addendum Electronically Signed by/Date: [facility] Work Phone: [facility] Work Phone: DRUG SCREEN,URINEon 05-01-20 23 Amphetamines Screen method >1000 ng/mL Ql (U) POSITIVE RESULT CHECKED [facility] Barbiturates Screen method >300 ng/mL Ql (U) Negative [facility] Benzodiazepines Screen method >300 ng/mL Ql (U) Negative [facility] Benzoylecgonine Screen method >300 ng/mL Ql (U) Negative [facility] Cannabinoids Screen method >50 ng/mL Ql (U) POSITIVE RESULT CHECKED [facility] Drug screen comment (U) [Interp] These Toxicological [...] ng/ml OXYCODONE 100 ng/ml FENTANYL 5 ng/ml [facility] fentaNYL+Norfentanyl Screen Ql (U) NEGATIVE Performed at [place] [address] [facility] [place] [address] [facility] Methadone Ql (U) Negative [facility] Opiates Screen method >300 ng/mL Ql (U) Negative [facility] oxyCODONE Ql (U) Negative [facility] Phencyclidine Screen method >25 ng/mL Ql (U) Negative [facility] - Chemistry and C hemistry - challengeon 05-01-2023 Potassium [Moles/Vol] Potassium R 3.9 MM OL/L (3.4-5.1 MMOL/L) Performed at [place] [address] [facility] [address] 3.4 - 5.1 MMOL/L [facility] Magnesiumon 05-01-2023 Magnesium [Mass/Vol] 2.2 mg/dL [place] Comment on above: Performed at [place] [address] [facility] [address] No Panel Informationon 05-01 Radiology Study observation (narrative) [facility] Work Phone: Interpretation and review of laboratory results Abnormal [facility] Potassiumon 05-01-2023 Potassium [Moles/Vol] 3.9 mmol/L [facility] Comment on above: Performed at [place] [id number] [facility] [place] [address] Potassium [Moles/Vol]on 04-04 [facility] Salicylateon 05-01-2023 Salicylates [Mass/Vol] 0.3 mg/dL Low [facility] Comment on above: LESS THAN Performed at [place] [address] [place] [address] Urinalysis complete W Reflex Culture panel (U)on 05-01-2023 Bacteria identified Cx Nom (U) CULTURE NOT INDICATED [facility] Bilirubin Ql (U) Negative NEG [facility] Casts type not specified Computer assisted (U) [#/Area] 2-4 [facility] Comment on above: HYALINE Clarity (U) CLEAR [facility] Color (U) YELLOW [facility] Crystals unspecified Computer assisted Ql (U) Occasional CA OXAL [facility] Epithelial casts Computer assisted (U) [#/Area] Occasional /HPF [facility] Comment on above: SQUAMOUS Performed at [address] [address] Glucose Auto test strip (U) [Mass/Vol] Negative NEG mg/dL [facility] Hemoglobin Auto test strip Ql (U) NONE SEEN [facility] Hemoglobin Ql (U) Negative NEG [facility] Interpretation and review of laboratory results Abnormal [facility] Ketones Auto test strip Ql (U) Negative NEG [facility] Leukocyte esterase Auto test strip Ql (U) Negative NEG [facility] Nitrite Auto test strip Ql (U) Negative NEG [facility] pH (U) 5.0 [pH] 4.6 - 8.0 [facility] Protein (U) [Mass/Vol] TRACE Abnormal NEG mg/dL [facility] Specific gravity (U) [Rel density] 1.013 1.005 - 1.030 [facility] Urinalysis dipstick W Reflex Microscopic panel (U) MANUAL MICROSCOPIC URINES [facility] Urobilinogen Ql (U) 2.0 High [facility] WBC Auto (Urine sed) [#/Area] NONE SEEN [facility] CNDSon 04-01-2023 CNDS HNO ID: [id number] Author: Florencio Clement MD Service: Psychiatry Author [...] No procedures performed HOSPITAL COURSE: Admitted to [address] Florencio Clement's supervision. Oriented [...] MDD and MAYUR who initially presented to [place] ED from home by friend on 03/26/23 for suicidal ideation (with plan to hang self or overdose on medications) in the setting of a relapse with alcohol use, following a recent admission to [facility] (03/20 - 03/24/23 for suicidal ideation in the setting of running out of Zyprexa, excess drinking and resulting SI). Patient was initially admitted to [facility] for alcohol intoxication but was medically cleared and transferred to [address] after 32 hours of observation at [place]. He had been discharged from [facility] on Lexapro 10 mg daily, Gabapentin 200 mg BID, Trazodone 50 mg QHS PRN insomnia, and Atarax 50 mg q6hrs PRN for anxiety. He was advised to continue Adderall 15 mg BID. Zyprexa was discontinued during this hospitalization (pt reports that he was initially prescribed 2 months ago, and had been over-using the medication). Following discharge from [facility] on 03/24, the patient found 6 tall boys in his trunk and drank what was left. Patient's Utox on admission was positive for amphetamines (prescribed Adderall), cannabinoids, and alcohol. The patient was seen by his outpatient provider (Dr. Sue in [place], [place]) earlier in the day on day of admission, and she recommended patient be evaluated in the ED. At [place], the patient was started on CIWA with Ativan PRN initially. He received a total of 8 mg Ativan prior to admission and vital signs were stable on admission to . Given that the patient did not demonstrate s/s of alcohol withdrawal on admission and that he was sober while at [facility] and drank for only one day after discharge/prior to this hospitalization, low concern for acute alcohol withdrawal on admission. The patient was monitored on CIWA and did not require additional PRN Ativan while hospitalized on . Patient reports prior alcohol treatment through , several prior detox admissions at [facility], and one residential program at [facility] Patient was started on appropriate nutrient supplementation, including B12, folic acid, and thiamine. Patient reports recent stressors to include his father being ill (recent COVID infection and subsequent fall with possible transition to hospice care) and the of his 3 pets within the past 3 months. On admission, patient reported symptoms of worsening anxiety and (more content not included)... Normal [facility] NURSING PROGon 04-01-2023 NURSING PROG HNO ID: [id number] Author: Guadalupe aMdrigal RN Service: Nursing Author Type: Registered Nurse Type: Nursing Progress Note Filed: 04/01/2023 6:52 PM Note Text: Nursing Progress Note Patient Name: Kandice Polanco Patient Location: [facility]/[id number] 1530 Assumed care of pt, currently day [...] future oriented. This note was completed by: [facility] NURSING PROG HNO ID: [id number] Author: Anni Horan RN Service: Nursing Author Type: Registered Nurse Type: Nursing Progress Note Filed: 04/01/2023 1:28 PM Note Text: Nursing Progress Note Patient Name: Kandice Polanco Patient Location: [address] Daily Note: 04/01/23 0700 - 1930 [...] This note was completed by: Anni Horan [facility] NURSING PROGon 03-31-2023 NURSING PROG HNO ID: [id number] Author: Sumi Zambrano RN Service: Nursing Author Type: Registered Nurse Type: Nursing Progress Note Filed: 04/01/2023 6:15 AM Note Text: Nursing Progress Note Patient Name: Kandice Polanco Patient Location: [facility]/[id number] Daily Note: [id number] Pt out in day area watching tv [...] This note was completed by: Sumi Zambrano [facility] NURSING PROG HNO ID: [id number] Author: Anni Horan RN Service: Nursing Author Type: Registered Nurse Type: Nursing Progress Note Filed: 03/31/2023 9:02 AM Note Text: Nursing Progress Note Patient Name: Kandice Polanco Patient Location: [facility]/[id number] Daily Note: 03/31/23 0700 - 1930 Assumed [...] This note was completed by: Anni Horan [facility] NURSING PROG HNO ID: [id number] Author: Martha White RN Service: Nursing Author Type: Registered Nurse Type: Nursing Progress Note Filed: 03/31/2023 6:06 AM Note Text: Patient visible on unit in the day area. He denies all psych. Patient agreeable to take HS medications after they were reviewed. His appearance and hygiene are acceptable. No further needs at this time. Will continue to monitor. 0600 slept 6.5 hours [facility] CONSULTon 03-30-2023 CONSULT HNO ID: [id number] Author: Magdalene Gilliland MD Service: General Internal [...] ?F) Temporal Art 61 16 98 % 07/28/23 2020 134/91 36.7 ?C (98.1 ?F) Temporal 69 16 93 % Body mass index is 31.22 kg/m?. GENERAL: Healthy, alert, no distress, cooperative SKIN: Skin color, texture, turgor normal. No rashes or lesions. OROPHARYNX: Lips, (more content not included)... [facility] NURSING [facility] 03-30-2023 NURSING PROG HNO ID: [id number] Author: Marge Lyon, NICOLE Service: ? Author Type: Registered Nurse Type: Nursing Progress Note Filed: 03/30/2023 1:44 PM Note Text: Assumed care of patient. Pt. out for meals. Attended and participated in group. Denies pain, depression and low anxiety -10/12. Pt. complaint with medication and decided to [...] phone calls which visibly affect his anxiety. [facility] NURSING [facility] 03-29[facility]2023 [id number] Author: Sumi Zambrano, NICOLE Service: Nursing Author Type: Registered Nurse Type: Nursing Progress Note Filed: 03/30/2023 6:02 AM Note Text: Nursing Progress Note Patient Name: Kandice Polanco Patient Location: [facility]/[id number] Daily Note: 2776-9363 Pt out in day area watching tv with peers. Blunted affect, pleasant, cooperative. Reports he had a rough day yesterday d/t anxiety and not sleeping well, but is feeling less anxious today. Denies SI. Pt declines N-acetylcysteine, states he is not having any drug or alcohol cravings. Denies pain or any other needs. 0- Observed asleep. 00- Slept 8.5 hours. This note was completed by: Sumi Zambrano [facility] NURSING PROG HNO ID: [id number] Author: Shannon Brooke, RN Service: Nursing Author Type: Registered Nurse Type: Nursing Progress Note Filed: 03/29/2023 7:44 PM Note Text: Nursing Progress Note Patient Name: Kandice Polanco Patient Location: [facility]/[id number] Daily Note:729 Assumed care of patient who was resting [...] This note was completed by: Shannon Brooke [facility] NURSING PROGon 03-28-2023 NURSING PROG HNO ID: [id number] Author: Kalie Alexandre RN Service: Nursing Author Type: Registered Nurse Type: Nursing Progress Note Filed: 03/29/2023 6:33 AM Note Text: Daily Note: 1899 Patient was seen resting in bed at the start of shift. No complaints voiced. He was heard being social with his roommates, talking about concerts he's been to. He requested and received his medications at 2035. He was seen sleeping in his bed at 2057. Breathing even and unlabored. 2222 Patient was seen up out of bed. He requested and received Atarax. He was seen sleeping in his bed at 2247. 0036 Patient was seen to be awake in bed. He was seen sleeping at 0049. 0318 Patient was seen up out of bed getting a snack. He was seen sleeping in his bed at 0343. 0600 Patient slept 6.75 hours. [facility] NURSING PROG HNO ID: [id number] Author: Marge Lyon RN Service: ? 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 friend) and [...] it really helped to ease his anxiety. 1799 - 1829: Pt. made numerous phone calls about 10 [...] this time -Denies pain -CIWA: Scored 0 [facility] NURSING PROG HNO ID: [id number] Author: Kianna Roy RN Service: Nursing Author Type: Registered Nurse Type: Nursing Progress Note Filed: 03/28/2023 6:03 AM Note Text: Nursing Progress Note Patient Name: Kandice Polanco Patient Location: [facility]/[id number] [id number] Assumed care of pt. Pt remained in [...] This note was completed by: Kianna Roy Normal [facility] NUTRITIONon 03-28-2023 NUTRITION HNO ID: [id number] Author: Mikki Sevilla RD Service: Nutrition Therapy [...] intake with hx of this. Detox at [facility] 03/20-; home for a day with ETOH binge then to [facility] and now to . Without N/V [...] DATE: March 28, 2023 TIME: 12:26 PM [facility] ALLIED HEALTHon 03-27-2023 [facility] HNO ID: [id number] Author: Greta Vargas Art Therapist Service: Art [...] Strategies Used: drinking INTERESTS: Current: Reconnecting with confucianist, making music, learning art techniques PATIENT'S GOALS FOR THERAPEUTIC PROGRAMMING: Build more confidence in abilities Channel energy/feelings into constructive outlets Explore inner resources/self-awareness Find ways to relax Improve coping skills Improve coping skills without using drugs or alcohol Improve thinking skills (memory, attention) while doing things Improve use of leisure time Spend more time with other people Utilize art materials SIGNATURE: Elias Ravi Therapist PATIENT NAME: Kandice Polanco DATE: March 27, 2023 TIME: 3:41 PM PAGER/CONTACT #: Normal [facility] Ammonia Plas-sCncon 03-27-20 23 Ammonia (P) [Moles/Vol] 23 umol/L Normal 16-60 [facility] Comment on above: Order Comment: Speci men Type: BLOOD SPECIMEN Ordering Facility: [facility] Address: [address] [place] [address] Performed By: #### 2 132-9, 54112-3, 22578-8, 45690-9 #### [facility] CLIA [id number] [address] ATTN [address] [place] Bilirub Conj SerPl-mCncon Bilirubin.conjugated [Mass/Vol] mg/dL Normal <0.2 [facility] Comment on above: Order Comment: Speci men Type: BLOOD SPECIMEN Ordering Facility: [facility] Address: [place] [address] Performed By: #### 2 132-9, 21650-6, 91976-2, 90688-1 #### [facility] CLIA [id number] [address] [place] [address] [facility] Comprehensive metabolic 2000 panelon 03-27-2023 Albumin [Mass/Vol] 3.9 g/dL Normal 3.9-4.9 [facility] Comment on above: Order Comment: Speci men Type: BLOOD SPECIMEN Ordering Facility: [facility] Address: [place] [address] Performed By: #### 2 132-9, 70386-5, 78945-9, 10030-3 #### [facility] CLIA [id number] [employer] [address] [place] ALP [Catalytic activity/Vol] 89 U/L Normal 38-113 [facility] Comment on above: Order Comment: Speci men Type: BLOOD SPECIMEN Ordering Facility: [facility] Address: [place] [address] Performed By: #### 2 132-9, 28480-6, 56118-7, 35053-4 #### [facility] CLIA [id number] [address] [place] [address] [place] ALT [Catalytic activity/Vol] 56 U/L High 10-54 [facility] Comment on above: Order Comment: Speci men Type: BLOOD SPECIMEN Ordering Facility: [facility] Address: [place] [address] Performed By: #### 2 132-9, 01639-9, 13544-8, 79412-5 #### [facility] CLIA [id number] [address] [place] [address] [place] Anion gap [Moles/Vol] 11 mmol/L Normal 9-18 [facility] Comment on above: Order Comment: Speci men Type: BLOOD SPECIMEN Ordering Facility: [facility] Address: [place] [address] Performed By: #### 2 132-9, 32465-7, 65705-5, 87332-8 #### [facility] CLIA [id number] [address] [place], [place] [address] [place] AST [Catalytic activity/Vol] 43 U/L High 14-40 [facility] Comment on above: Order Comment: Speci men Type: BLOOD SPECIMEN Ordering Facility: [facility] Address: [address] [place] [address] Performed By: #### 2 132-9, 55358-9, 79984-4, 48166-5 #### [facility] CLIA [id number] [address] [place], [place] [address] [place] Bilirubin [Mass/Vol] 0.4 mg/dL Normal 0.2-1.3 [facility] Comment on above: Order Comment: Speci men Type: BLOOD SPECIMEN Ordering Facility: [facility] Address: [address] [place], [place] [address] Performed By: #### 2 132-9, 88421-2, 32249-7, 43854-2 #### [facility] CLIA [id number] [address] [place] [address] [place] Calcium [Mass/Vol] 9.1 mg/dL Normal 8.5-10.2 [facility] Comment on above: Order Comment: Speci men Type: BLOOD SPECIMEN Ordering Facility: [facility] Address: [address] [place] [phone] Performed By: #### 2 132-9, 23995-5, 66667-5, 94582-1 #### [facility] CLIA [id number] [employer] [address] [place] Chloride [Moles/Vol] 100 mmol/L Normal 97-105 [facility] Comment on above: Order Comment: Speci men Type: BLOOD SPECIMEN Ordering Facility: [facility] Address: [place] [address] Performed By: #### 2 132-9, 99531-3, 54083-8, 57011-0 #### [facility] CLIA [id number] [address] [place] [address] [place] CO2 [Moles/Vol] 25 mmol/L Normal 22-30 [facility] Comment on above: Order Comment: Speci men Type: BLOOD SPECIMEN Ordering Facility: [facility] Address: [address] [place] [address] Performed By: #### 2 132-9, 59924-0, 59294-9, 85087-7 #### [facility] CLIA [id number] [address] [place], [place] [address] [place] Creatinine [Mass/Vol] 0.97 mg/dL Normal 0.73-1.22 [facility] Comment on above: Order Comment: Speci men Type: BLOOD SPECIMEN Ordering Facility: [facility] Address: [address] [place] [address] Performed By: #### 2 132-9, 84954-0, 31599-7, 82481-9 #### [facility] CLIA [id number] [address] [place] [address] [place] ESTIMATED GLOMERULAR FILTRATION RATE 99 mL/min/1.73m??? Normal >=60 [facility] Comment on above: Order Comment: Speci men Type: BLOOD SPECIMEN Ordering Facility: [facility] Address: [address] [place] [address] Result Comment: Isabel mated Glomerular Filtration Rate [...] actual GFR. Performed By: #### 2 132-9, 11505-1, 67506-3, 75180-7 #### [facility] CLIA [id number] [address] [place], [place] [address] [place] Glucose [Mass/Vol] 95 mg/dL Normal 74-99 [facility] Comment on above: Order Comment: Carlos jono Type: BLOOD SPECIMEN Ordering Facility: [facility] Address: [address] [place], [place] [phone] Result Comment: The [place] Diabetes Association (ADA) provides guidance for cutoff [...] Standards of Medical Care in Diabetes 2016, [place] Diabetes Association. Diabetes Care. 2016.39(Suppl 1). Performed By: #### 2 132-9, 09393-2, 06222-3, 33643-4 #### [facility] CLIA [id number] [address] [place], [place] [address] [place] Potassium [Moles/Vol] 4.1 mmol/L Normal 3.7-5.1 [facility] Comment on above: Order Comment: Carlos jono Type: BLOOD SPECIMEN Ordering Facility: [facility] Address: [address] [place] [phone] Performed By: #### 2 132-9, 09226-9, 54304-3, 16403-4 #### [facility] [place] [id number] [address] [place], [place] [address] [place] Protein [Mass/Vol] 6.6 g/dL Normal 6.3-8.0 [facility] Comment on above: Order Comment: Carlos jono Type: BLOOD SPECIMEN [facility]ing Facility: [facility] Address: [address] [place] [phone] Performed By: #### 2 132-9, 69344-0, 40212-8, 99454-8 #### [facility] CLIA [id number] [address] [place], [place] [address] [place] Sodium [Moles/Vol] 136 mmol/L Normal 136-144 [facility] Comment on above: Order Comment: Speci men Type: BLOOD SPECIMEN Ordering Facility: [facility] Address: [address] [place], [place] [phone] Performed By: #### 2 132-9, 67535-6, 11817-7, 96659-9 #### [facility] [place] [id number] [address] [place], [place] [address] [place] Urea nitrogen [Mass/Vol] 11 mg/dL Normal 9-24 [facility] Comment on above: Order Comment: Speci men Type: BLOOD SPECIMEN Ordering Facility: [facility] Address: [address] [place] [phone] Performed By: #### 2 132-9, 25065-6, 14567-0, 01441-3 #### [facility] [place] [id number] [address] [place], [place] [address] [place] HbA1c (Bld)on 03-27-2023 Average glucose Estimated from glycated hemoglobin (Bld) [Mass/Vol] 105 mg/dL [facility] Comment on above: Order Comment: Speci men Type: BLOOD SPECIMEN Ordering Facility: [facility] Address: [address] [place] [phone] Result Comment: eAG: (Estimated average glucose) is a calculated value from HgbA1c and is human resources representative of the average blood glucose level in the last 2-3 month period. Performed By: #### 2 132-9, 17322-1, 38463-7, 80851-5 #### [facility] CLIA [id number] [address] [place], [place] [address] [place] HbA1c (Bld) [Mass fraction] 5.3 % Normal 4.3-5.6 [facility] Comment on above: Order Comment: Carlos de la cruz Type: BLOOD SPECIMEN Ordering Facility: [facility] Address: [address] [place], [place] [phone] Result Comment: [facility] Diabetes Association guidelines indicate that patients with HgbA1c in the range 5.7-6.4% are at increased risk for development of diabetes, and intervention by lifestyle modification may be beneficial. HgbA1c greater or equal to 6.5% is considered diagnostic of diabetes. Performed By: #### 2 132-9, 86048-0, 55489-7, 73637-6 #### [facility] CLIA [id number] [address] [place], [place] [address] [place] Lipid 1996 panelon 3 Cholesterol [Mass/Vol] 158 mg/dL Normal <200 [facility] Comment on above: Order Comment: Carlos de la cruz Type: BLOOD SPECIMEN Ordering Facility: [facility] Address: [address] [place], [place] [phone] Result Comment: <200 mg/dL, Desirable 200-239 mg/dL, Borderline high >239 mg/dL, High Performed By: #### 2 132-9, 16413-1, 84872-2, 18811-4 #### [facility] CLIA [id number] [address] [place] [address] SPECULATOR [place] OF DEB Cholesterol in HDL [Mass/Vol] 39 mg/dL Low >39 [facility] Comment on above: Order Comment: Carlos de la cruz Type: BLOOD SPECIMEN Ordering Facility: [facility] Address: [address] [place] [phone] Result Comment: 40-5 9 mg/dL, Acceptable >59 mg/dL, High: Negative risk factor for coronary heart disease <40 mg/dL, Low: Positive risk factor for coronary heart disease Performed By: #### 2 132-9, 50408-4, 66201-8, 41376-1 #### [facility] CLIA [id number] [address] [place], [place] [address] SPECULATOR [place] OF DEB Cholesterol in LDL [Mass/Vol] 88 mg/dL Normal <100 [facility] Comment on above: Order Comment: Nickenneth de la cruz Type: BLOOD SPECIMEN Ordering Facility: [facility] Address: [address] [place] [address] Result Comment: <100 mg/dL, Optimal 100-129 mg/dL, Near optimal/above optimal 130-159 mg/dL, Borderline high 160-189 mg/dL, High >189 mg/dL, Very high Secondary prevention optimal LDL Cholesterol levels are recommended to be < 70 mg/dL Performed By: #### 2 132-9, 67873-3, 84001-6, 08347-4 #### [facility] CLIA [id number] [address] [place] [address] OF DEB Cholesterol in LDL/Cholesterol in HDL [Mass ratio] 2.26 {ratio} Normal <2.54 [facility] Comment on above: Order Comment: Carlos jono Type: BLOOD SPECIMEN Ordering Facility: [facility] Address: [address] [place] [address] Result Comment: Refe rence: 1. National Cholesterol Education Program ATP III Guideline At-A-Glance Quick Desk Reference: National Heart, Lung, and Blood [place]. National Institutes of Health. 2001: NIH Publication No. 01-3305. 2. An International Atherosclerosis Society position paper: global recommendations for the management of dyslipidemia: executive summary, Atherosclerosis. 2014: 232(2):410-413. Performed By: #### 2 132-9, 72842-2, 60157-1, 20136-3 #### [facility] CLIA [id number] [address] [place], [place] [address] [place] Cholesterol in VLDL [Mass/Vol] 31 mg/dL High <30 [facility] Comment on above: Order Comment: Carlos de la cruz Type: BLOOD SPECIMEN Ordering Facility: [facility] Address: [address] [place] [address] Performed By: #### 2 132-9, 12018-6, 44138-3, 82334-0 #### [facility] CLIA [id number] [address] [place] [address] OF DEB Cholesterol non HDL [Mass/Vol] 119 mg/dL Normal <130 [facility] Comment on above: Order Comment: Speci men Type: BLOOD SPECIMEN Ordering Facility: [facility] Address: [address] Result Comment: <130 mg/dL, Optimal 130-159 mg/dL, Near optimal/above optimal 160-189 mg/dL, Borderline high 190-219 mg/dL, High >219 mg/dL, Very high Secondary prevention optimal non HDL Cholesterol levels are recommended to be <100 mg/dL Performed By: #### 2 132-9, 81512-2, 06828-6, 51555-5 #### [facility] CLIA [id number] [address] [place] [address] DEB Cholesterol.total/Cho lesterol in HDL [Mass ratio] 4.05 {ratio} Normal <5.10 [facility] Comment on above: Order Comment: Speci men Type: BLOOD SPECIMEN Ordering Facility: [facility] Address: [address] [place], [place] [phone] Performed By: #### 2 132-9, 48718-6, 96066-6, 76837-0 #### [facility] CLIA [id number] [address] STATES OF DEB FASTING TIME Unknown Normal [facility] Comment on above: Order Comment: Speci men Type: BLOOD SPECIMEN Ordering Facility: [facility] Address: [address] Performed By: #### 2 132-9, 60015-7, 67169-8, 05699-5 #### [facility] CLIA [id number] [address] [place] [address] STATES OF DEB Triglyceride [Mass/Vol] 153 mg/dL High <150 [facility] Comment on above: Order Comment: Speci men Type: BLOOD SPECIMEN [facility]ing Facility: [facility] Address: [address] [place], [place] [address] Result Comment: <150 mg/dL, Normal 150-199 mg/dL, Borderline high 200-499 mg/dL, High >499 mg/dL, Very high Performed By: #### 2 132-9, 14675-0, 44726-3, 24438-3 #### [facility] CLIA [id number] [employer] ATTN [place] [address] NURSING PROGon 03-27-2023 NURSING PROG HNO ID: [id number] Author: Johan Feng, NICOLE Service: Nursing Author Type: Registered Nurse [...] gave verbal consent to talk to Gavin. [facility] NURSING PROG HNO ID: [id number] Author: Ciro Worthy, NICOLE Service: Nursing Author Type: Registered Nurse Type: Nursing Progress Note Filed: 03/27/2023 10:30 AM Note Text: [id number] Observed him sleeping in his room at the start of care 0900 out of room ate breakfast appetite fair c/o feeling tired safety maintained [facility] NURSING PROG HNO ID: [id number] Author: Kalie Alexandre, NICOLE Service: Nursing Author [...] at 0459. 0600 Patient slept 6.25 hours. [facility] NURSING PROG HNO ID: [id number] Author: Kianna Roy RN Service: Nursing Author Type: Registered Nurse Type: Nursing Progress Note Filed: 03/26/2023 11:41 PM Note Text: Nursing Progress Note Patient Name: Kandice Polanco Patient Location: [facility]/[id number] Pt is 42 yr old male admitted to from [facility] for Suicidal Ideation. He states he is [...] and with relationships. He was discharged from [facility] Saturday and detoxed from alcohol there. [...] This note was completed by: Kianna Roy [facility] NURSING PROG HNO ID: [id number] Author: Kianna Roy RN Service: Nursing Author [...] 03/29/23 Progress Towards Short Term Goals: Progressing Fdc Goals: Patient expresses examples of optimism and hope for the future Target Date Management Planner Goals: 04/04/23 Progress Towards Management Planner Goals: Progressing Interventions - Nursing: Obtain baseline [...] DATE: March 26, 2023 TIME: 10:48 PM [facility] Reagin and Treponema pallidu m IgG and IgM [Interp]on 03-27-2023 SYPHILIS INTERPRETATION Cannot exclude recent Treponemal infection if specimen collected within 7-10 days after appearance of suspect lesions or 2-3 weeks after an exposure. Clinical correlation is required. Normal [facility] Comment on above: Order Comment: Speci men Type: BLOOD SPECIMEN [facility] Facility: [facility] Address: [address] [place] [address] Performed By: #### 7 3752-8 #### [facility] CLIA [id number] [address] [place] [address] STATES OF [facility] T. pallidum IgG+IgM IA Ql (S) Non-Reactive Normal Nonreactive [facility] Comment on above: Order Comment: Speci men Type: BLOOD SPECIMEN Ordering Facility: [facility] Address: [address] [place] [address] Performed By: #### 7 3752-8 #### [facility] CLIA [id number] [address] [place] [address] [place] Vit B12 SerPl-ncon 023 Cobalamin (Vitamin B12) [Mass/Vol] 211 pg/mL Low 232-1245 [facility] Comment on above: Order Comment: Speci men Type: BLOOD SPECIMEN Ordering Facility: [facility] Address: [address] [place] [address] Performed By: #### 2 132-9, 54278-5, 24263-2, 76416-1 #### [facility] CLIA [id number] [address] [place] [address] [place] 25(OH)D3 SerPl-mCncon 2022 25-hydroxyvitamin D3 [Mass/Vol] 28.5 ng/mL Low 31.0-80.0 [facility] Comment on above: Order Comment: Speci men Type: BLOOD SPECIMENOrdering Facility: [facility] Address: [address] [place] [address] Result Comment: Clas sification of 25 [place] Vitamin D status: Deficiency/Insufficiency: < or = 30 ng/ml. Sufficiency/Optimal Levels: 31-80 ng/mL Toxicity: > 100 ng/mL. Test performed by chemiluminescent immunoassay. Performed By: #### 1 989-3 ####[facility]IA [id number] [facility] [id number] OF DEB CBC panel Auto (Bld)on 03-26 Erythrocyte distribution width (RBC) [Ratio] 13.4 % Normal 11.5-15.0 [facility] Comment on above: Order Comment: Speci men Type: BLOOD SPECIMENOrdering Facility: [facility] Address: [address] [place] [address] Performed By: #### 5 8410-2 ####[facility] [id number] [address] OF DEB Hematocrit (Bld) [Volume fraction] 43.0 % Normal 39.0-51.0 [facility] Comment on above: Order Comment: Speci men Type: BLOOD SPECIMENOrdering Facility: [facility] Address: [address] [place] [address] Performed By: #### 5 8410-2 ####[facility] [id number] [address] OF DEB Hemoglobin (Bld) [Mass/Vol] 14.7 g/dL Normal 13.0-17.0 [facility] Comment on above: Order Comment: Speci men Type: BLOOD SPECIMENOrdering Facility: [facility] Address: [address] [place] [address] Performed By: #### 5 8410-2 ####[facility] [id number] [address] STATES OF DEB MCH (RBC) [Entitic mass] 33.6 pg Normal 26.0-34.0 [facility] Comment on above: Order Comment: Speci men Type: BLOOD SPECIMENOrdering Facility: [facility] Address: [address] [place] [address] Performed By: #### 5 8410-2 ####[facility]ORYIA [id number] [place] [address] [place] MCHC (RBC) [Mass/Vol] 34.2 g/dL Normal 30.5-36.0 [facility] Comment on above: Order Comment: Speci men Type: BLOOD SPECIMENOrdering Facility: [facility] Address: [address] [place] [address] Performed By: #### 5 8410-2 ####[facility]ORYCLIA [id number] [place] [id number] [place] MCV (RBC) [Entitic vol] 98.4 fL Normal 80.0-100.0 [facility] Comment on above: Order Comment: Speci men Type: BLOOD SPECIMENOrdering Facility: [facility] Address: [address] [place] [address] Performed By: #### 5 8410-2 ####[facility] [id number] [address] STATES OF DEB Nucleated RBC (Bld) [#/Vol] 10*3/uL Normal <0.01 [facility] Comment on above: Order Comment: Speci men Type: BLOOD SPECIMENOrdering Facility: [facility] Address: [address] [place] [address] Performed By: #### 5 8410-2 ####[facility] [id number] [place] [address] [place] Platelet mean volume (Bld) [Entitic vol] 9.5 fL Normal 9.0-12.7 [facility] Comment on above: Order Comment: Speci men Type: BLOOD SPECIMENOrdering Facility: [facility] Address: [address] [place] [address] Performed By: #### 5 8410-2 ####[facility] [id number] [address] STATES OF DEB Platelets (Bld) [#/Vol] 283 10*3/uL Normal 150-400 [facility] Comment on above: Order Comment: Speci men Type: BLOOD SPECIMENOrdering Facility: [facility] Address: [address] [place] [address] Performed By: #### 5 8410-2 ####[facility]ORYCLIA [id number] [place] [address] [facility] RBC (Bld) [#/Vol] 4.37 10*6/uL Normal 4.20-6.00 [facility] Comment on above: Order Comment: Speci men Type: BLOOD SPECIMENOrdering Facility: [facility] Address: [address] Performed By: #### 5 8410-2 ####[facility]ORYCLIA [id number] [place] [address] [facility] WBC (Bld) [#/Vol] 6.45 10*3/uL Normal 3.70-11.00 [facility] Comment on above: Order Comment: Speci men Type: BLOOD SPECIMENOrdering Facility: [facility] Address: [address] [place], [place] [address] Performed By: #### 5 8410-2 ####[facility] [id number] [place] [address] [facility] CNDSon 03-26-2023 CNDS HNO ID: [id number] Author: Dewey Toussaint MD Service: Hospital Medicine [...] problems. * HOSPITAL COURSE: Patient presented to [place] ED on 03/26 was admitted for alcohol [...] of Drug Abuse/Dependence I have performed the [id number] and relevant services for a total of >30 minutes. Plan of care discussed with Provider, RN, Patient SIGNATURE: Dewey Toussaint MD DATE: March 28, 2023 TIME: 2:17 PM [facility] CONSULTon 03-26-2023 CONSULT HNO ID: [id number] Author: Irish Love APRN.CNP Service: Psychiatry Author [...] visit. Either the patient or their legal human resources representative has been informed of the risks [...] is a 42 year old male from [place], [place]. With the patient consent, visit was performed virtually. HISTORY OF PRESENT ILLNESS : This is a 42 year old with a PMHx of HTN, EMILY (does not wear CPAP), alcohol use disorder, cannabis use disorder and unspecified mood disorder was admitted to [facility] on 03/26/2023 for SI and alcohol [...] on Saturday. 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 Acute alcohol withdrawal less likely at this [...] was recently discharged from inpatient psychiatry at [facility] on Saturday03/24/2023, reports found some beer in the trunk of his car and drank what was left. States that he did not purchase any new alcohol. Patient did not feel he was ready for discharge from [facility] and was admitted there for SI, [...] all very supportive. Follows outpatient psychiatry in [facility] and reports that his friend drove him to [place] for admission due to SI. Patient reports that his mood is not stable feels he may have bipolar disorder. States that his lack of sleep is his biggest concern as he can't shut his mind off, which then triggers his anxiety and depression. When he was admitted to [facility] they switched him from Cymbalta to [...] 42 year old male brought in to [place] ED from Home by friend for suicidal ideations. Intake spoke with pt over phone for assessment. He is A AND O x 4. Thoughts are logical and linear. He is cooperative throughout assessment. Pt sounds anxious and depressed. He states I don't feel well. Pt states he is in the hospital due to ove (more content not included)... Normal [facility] Comprehensive metabolic 2000 panelon 03-26-2023 Albumin [Mass/Vol] 3.7 g/dL Low 3.9-4.9 [facility] Comment on above: Order Comment: Speci men Type: BLOOD SPECIMENOrdering Facility: [facility] Address: [address] [place] [place] [phone] Performed By: #### 3 016-3, 73926-8, ####[facility]ATORYCLIA [id number] [place] [address] [place] ALP [Catalytic activity/Vol] 87 U/L Normal 38-113 [facility] Comment on above: Order Comment: Speci men Type: BLOOD SPECIMENOrdering Facility: [facility] Address: [address] [phone] Performed By: #### 3 016-3, 38861-7, ####[facility]ORYCLIA [id number] [place] [address] [place] ALT [Catalytic activity/Vol] 56 U/L High 10-54 [facility] Comment on above: Order Comment: Speci men Type: BLOOD SPECIMENOrdering Facility: [facility] Address: [address] [place] [address] Performed By: #### 3 016-3, 25292-5, ####[facility] [id number] [place] [address] [place] Anion gap [Moles/Vol] 12 mmol/L Normal 9-18 [facility] Comment on above: Order Comment: Speci men Type: BLOOD SPECIMENOrdering Facility: [facility] Address: [address] [address] Performed By: #### 3 016-3, 38932-9, ####[facility] [id number] [place] [address] [place] AST [Catalytic activity/Vol] 54 U/L High 14-40 [facility] Comment on above: Order Comment: Speci men Type: BLOOD SPECIMENOrdering Facility: [facility] Address: [address] [place] [address] Performed By: #### 3 016-3, 58502-7, ####[facility] [id number] [place] [address] [place] Bilirubin [Mass/Vol] 0.6 mg/dL Normal 0.2-1.3 [facility] Comment on above: Order Comment: Speci men Type: BLOOD SPECIMENOrdering Facility: [facility] Address: [address] [place] [address] Performed By: #### 3 016-3, 41068-1, ####[facility] [id number] [place] [address] [place] Calcium [Mass/Vol] 8.8 mg/dL Normal 8.5-10.2 [facility] Comment on above: Order Comment: Speci men Type: BLOOD SPECIMENOrdering Facility: [facility] Address: [address] [place] [address] Performed By: #### 3 016-3, 09080-4, ####[facility] LABORATORYCLIA [id number] [facility] [place] [address] [place] Chloride [Moles/Vol] 104 mmol/L Normal 97-105 [facility] Comment on above: Order Comment: Speci men Type: BLOOD SPECIMENOrdering Facility: [facility] Address: [address] [place] [address] Performed By: #### 3 016-3, 19960-5, ####[facility] [id number] [place] [address] [place] CO2 [Moles/Vol] 23 mmol/L Normal 22-30 [facility] Comment on above: Order Comment: Speci men Type: BLOOD SPECIMENOrdering Facility: [facility] Address: [address] [place] [address] Performed By: #### 3 016-3, 78034-0, ####[facility] [id number] [place] [address] [place] Creatinine [Mass/Vol] 0.98 mg/dL Normal 0.73-1.22 [facility] Comment on above: Order Comment: Speci men Type: BLOOD SPECIMENOrdering Facility: [facility] Address: [address] [place] [address] Performed By: #### 3 016-3, 23504-1, ####[facility] LABORATORYIA [id number] [place] [address] [place] ESTIMATED GLOMERULAR FILTRATION RATE 98 mL/min/1.73m??? Normal >=60 [facility] Comment on above: Order Comment: Speci men Type: BLOOD SPECIMENOrdering Facility: [facility] Address: [address] [place] [address] Result Comment: Isabel mated Glomerular Filtration Rate [...] actual GFR. Performed By: #### 3 016-3, 73800-1, ####[facility]ATORYCLIA [id number] [place] [address] [place] Glucose [Mass/Vol] 89 mg/dL Normal 74-99 [facility] Comment on above: Order Comment: Carlos de la cruz Type: BLOOD SPECIMENOrdering Facility: [facility] Address: [address] [place] [address] Result Comment: The [place] Diabetes Association (ADA) provides guidance for cutoff [...] Standards of Medical Care in Diabetes 2016, [place] [employer] Association. Diabetes Care. 2016.39(Suppl 1). Performed By: #### 3 016-3, 69678-1, ####[facility]ATORYCLIA [id number] [place] [address] [place] Potassium [Moles/Vol] 3.9 mmol/L Normal 3.7-5.1 [facility] Comment on above: Order Comment: Carlos de la cruz Type: BLOOD SPECIMENOrdering Facility: [facility] Address: [address] [place] [address] Performed By: #### 3 016-3, 95936-0, ####[facility]ATORYCLIA [id number] [place] [address] [place] Protein [Mass/Vol] 6.4 g/dL Normal 6.3-8.0 [facility] Comment on above: Order Comment: Speci men Type: BLOOD SPECIMENOrdering Facility: [facility] Address: [address] [address] Performed By: #### 3 016-3, , ####[facility] [id number] [place] [address] [place] Sodium [Moles/Vol] 139 mmol/L Normal 136-144 [facility] Comment on above: Order Comment: Speci men Type: BLOOD SPECIMENOrdering Facility: [facility] Address: [address] [address] Performed By: #### 3 016-3, , ####[facility] [id number] [place] [address] [place] Urea nitrogen [Mass/Vol] 11 mg/dL Normal 9-24 [facility] Comment on above: Order Comment: Speci men Type: BLOOD SPECIMENOrdering Facility: [facility] Address: [address] [address] Performed By: #### 3 016-3, , ####[facility] [id number] [place] [id number] [place] Ethanol SerPl-mCncon 023 Ethanol [Mass/Vol] mg/dL Normal <11 [facility] Comment on above: Order Comment: Speci men Type: BLOOD SPECIMENOrdering Facility: [facility] Address: [address] [address] Performed By: #### 5 643-2 ####[facility] [id number] [place] [id number] [place] GGT SerPl-cCncon 03-26-2023 Gamma glutamyl transferase [Catalytic activity/Vol] 103 U/L High 10-70 [facility] Comment on above: Order Comment: Speci men Type: BLOOD SPECIMENOrdering Facility: 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 REASON FOR ADMISSION: SI and Insomnia Subjective [...] 42 year old male brought in to [place] ED from Home by friend for suicidal [...] Pt states he was recently admitted to [facility] psych unit from Saturday to Saturday. [...] weeks. Pt follows with Dr. Sue in [place], [place]. He had an appointment with outpatient provider today who suggested pt go to the ED. Pt reports stressors of his dad being sick and 3 of his pets have . Pt states he still has 4 cats at home who bring him comfort. He denies having access to guns or weapons at home. 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 He would like to be admitted today Tox screen + amphetamines (prescribed Adderall), cannabinoids, and alcohol. BAL 206 in the ED. No restraints or PRNs needed in the ED. The information below taken Rasheed Love 's HANDP from 03/26/23 is denoted in italics: This is a 42 year old with a PMHx of HTN, EMILY (does not wear CPAP), alcohol use disorder, cannabis use disorder and unspecified mood disorder was admitted to [facility] on 03/26/2023 for SI and alcohol [...] on Saturday. 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 Acute alcohol withdrawal less likely at this [...] was recently discharged from inpatient psychiatry at [facility] on Saturday03/24/2023, reports found some beer in the trunk of his car and drank what was left. States that he did not purchase any new alcohol. Patient did not feel he was ready for discharge from [facility] and was admitted there for SI, [...] all very supportive. Follows outpatient psychiatry in [facility] and reports that his friend drove him to [place] for admission due to SI. Patient re (more content not included)... Normal [facility] Magnesium Banner 03-26 Magnesium [Mass/Vol] 2.0 mg/dL Normal 1.7-2.3 [facility] Comment on above: Order Comment: Speci men Type: BLOOD SPECIMENOrdering Facility: [facility] Address: [address] [place] [address] [place] [address] Performed By: #### 3 016-3, 33716-6, 88997-3 ####[facility] LABORATORYCLIA [id number] [facility] [place] [address] [place] NURSING PROGon 03-26-2023 NURSING PROG HNO ID: [id number] Author: Shannon Horan, RN Service: Nursing Author Type: Registered [...] for nausea. Sitter remains at bedside. Normal [facility] NUTRITIONon 03-26-2023 NUTRITION HNO ID: [id number] Author: Angeli Leija RD Service: Nutrition Therapy [...] loss, Food/nutrition related history Estimated kilocalorie needs: 8119-8184 Calorie Calculation Method: 15-20 kcals/kg Estimated protein [...] Orders (From admission, onward) Start Ordered 03/25/23 174 DIET REGULAR START NOW 03/25/23 1733 Anthropometrics: [...] March 26, 2023 TIME: 2:35 PM Normal [facility] TESTOSTERONE, FREE AND TOTAL on 03-26-2023 TESTOSTERONE, FREE, S 22.6 ng/dL High 4.46-17.1 [facility] Comment on above: Order Comment: Speci men Type: BLOOD SPECIMENOrdering Facility: [facility] Address: [address] [place] [address] Result Comment: ADDITIONAL INFORMATION This test was developed and its performance characteristics determined by [facility] in a manner consistent with CLIA requirements. This test has not been cleared or approved by the U.S. Food and Drug Administration. Performed By: #### T FTEST ####[facility] LABCLIA [id number] [place] [id number] TESTOSTERONE, TOTAL, S 921 ng/dL Normal 240-950 [facility] Comment on above: Order Comment: Speci men Type: BLOOD SPECIMENOrdering Facility: [facility] Address: [place] [address] Result Comment: ADDITIONAL INFORMATION Testing performed by Liquid Chromatography-Tandem Mass Spectrometry (LC-MS/MS). This test was developed and its performance characteristics determined by [facility] in a manner consistent with CLIA requirements. This test has not been cleared or approved by the U.S. Food and Drug Administration. Test Performed by: [facility] [address] [place] [id number] Supervisor Force Adjustment: Eddie Larsen M.D. Ph.D.; CLIA# [id number] Performed By: #### T FTEST ####[facility] LABCLIA [id number] [place] [address] TSH SerPl-aCncon 03-26-2023 TSH Qn 2.000 m[IU]/L Normal 0.270-4.200 [facility] Comment on above: Order Comment: Speci men Type: BLOOD SPECIMENOrdering Facility: [facility] Address: [address] [id number] Performed By: #### 3 016-3, 64939-4, 56566-7 ####[facility] LABORATORYCLIA [id number] [place] [id number] [facility] Vit B12 SerPl-mCncon 03-26- 023 Cobalamin (Vitamin B12) [Mass/Vol] 250 pg/mL Normal 232-1245 [facility] Comment on above: Order Comment: Speci men Type: BLOOD SPECIMENOrdering Facility: [facility] Address: [address] [id number] Performed By: #### 2 132-9 ####[facility] LABORATORYCLIA [id number] [place] [address] [facility] OF DEB ALLIED HEALTHon 03-25-2023 ALLIED HEALTH HNO ID: [id number] Author: Yanet Moreno LISW Service: ? Author Type: Youth Care Worker Type: Allied Health Filed: 03/25/2023 3:11 PM [...] abusing alcohol. Methods of Suicide Risk Evaluation: Alger and SAFE-T Brief Evaluation Summary: Warning Signs: [...] Pt states he was recently admitted to [facility] psych unit from Saturday to Saturday. [...] PA-C Date 03/25/23 Time 2:50 AM Psychiatrist vocational nursing instructor: pt medically admitted SIGNATURE: ROJELIO Morrison PATIENT NAME: Kandice Polanco DATE: March 25, 2023 TIME: 3:10 PM Normal [facility] Ammonia Plas-sCncon 03-25-20 Ammonia (P) [Moles/Vol] 24 umol/L Normal 16-60 [facility] Comment on above: Order Comment: Speci men Type: BLOOD SPECIMENOrdering Facility: [facility] Address: [address] [address] Performed By: #### 1 6362-6 ####[facility] LABORATORYCLIA [id number] [address] OF [place] CBC panel Auto (Bld)on 03-25 Erythrocyte distribution width (RBC) [Ratio] 13.5 % Normal 11.5-15.0 [facility] Comment on above: Order Comment: Speci men Type: BLOOD SPECIMENOrdering Facility: [facility] Address: [address] [place] [address] Performed By: #### 5 8410-2 ####[facility] LABORATORYCLIA [id number] [place] [address] [place] Hematocrit (Bld) [Volume fraction] 44.0 % Normal 39.0-51.0 [facility] Comment on above: Order Comment: Speci men Type: BLOOD SPECIMENOrdering Facility: [facility] Address: [address] [place] [address] Performed By: #### 5 8410-2 ####[facility] LABORATORYCLIA [id number] [place] [address] [place] Hemoglobin (Bld) [Mass/Vol] 15.0 g/dL Normal 13.0-17.0 [facility] Comment on above: Order Comment: Speci men Type: BLOOD SPECIMENOrdering Facility: [facility] Address: [address] [address] Performed By: #### 5 8410-2 ####[facility] LABORATORYCLIA [id number] MCH (RBC) [Entitic mass] 33.0 pg Normal 26.0-34.0 [facility] Comment on above: Order Comment: Speci men Type: BLOOD SPECIMENOrdering Facility: [facility] Address: [address] [place] [address] Performed By: #### 5 8410-2 ####[facility] LABORATORYIA [id number] [address] STATES OF [place] MCHC (RBC) [Mass/Vol] 34.1 g/dL Normal 30.5-36.0 [facility] Comment on above: Order Comment: Speci men Type: BLOOD SPECIMENOrdering Facility: [facility] Address: [address] [place] [address] Performed By: #### 5 8410-2 ####[facility] [id number] [address] OF [place]B MCV (RBC) [Entitic vol] 96.9 fL Normal 80.0-100.0 [facility] Comment on above: Order Comment: Speci men Type: BLOOD SPECIMENOrdering Facility: [facility] Address: [address] [place] [address] Performed By: #### 5 8410-2 ####[facility] [id number] [address] OF [place] Nucleated RBC (Bld) [#/Vol] 10*3/uL Normal <0.01 [facility] Comment on above: Order Comment: Speci men Type: BLOOD SPECIMENOrdering Facility: [facility] Address: [address] [place] [address] Performed By: #### 5 8410-2 ####[facility] [id number] [address] OF [place]B Platelet mean volume (Bld) [Entitic vol] 9.4 fL Normal 9.0-12.7 [facility] Comment on above: Order Comment: Speci men Type: BLOOD SPECIMENOrdering Facility: [facility] Address: [address] Performed By: #### 5 8410-2 ####[facility] LABORATORYIA [id number] [place] [address] [facility] OF DEB Platelets (Bld) [#/Vol] 313 10*3/uL Normal 150-400 [facility] Comment on above: Order Comment: Speci men Type: BLOOD SPECIMENOrdering Facility: [facility] Address: [address] Performed By: #### 5 8410-2 ####[facility]ENTERIA [id number] [place] [address] [place] RBC (Bld) [#/Vol] 4.54 10*6/uL Normal 4.20-6.00 [facility] Comment on above: Order Comment: Speci men Type: BLOOD SPECIMENOrdering Facility: [facility] Address: [address] Performed By: #### 5 8410-2 ####[facility]ENTERIA [id number] [place] [address] [place] WBC (Bld) [#/Vol] 6.88 10*3/uL Normal 3.70-11.00 [facility] Comment on above: Order Comment: Speci men Type: BLOOD SPECIMENOrdering Facility: [facility] Address: [address] Performed By: #### 5 8410-2 ####[facility]ENTERIA [id number] [place] [address] [facility] Comprehensive metabolic 2000 panelon 03-25-2023 Albumin [Mass/Vol] 4.3 g/dL Normal 3.9-4.9 [facility] Comment on above: Order Comment: Speci men Type: BLOOD SPECIMENOrdering Facility: [facility] Address: [address] [place] [address] Performed By: #### 2 4323-8 ####[facility] LABORATORYIA [id number] [place] [address] [place] ALP [Catalytic activity/Vol] 103 U/L Normal 38-113 [facility] Comment on above: Order Comment: Speci men Type: BLOOD SPECIMENOrdering Facility: [facility] Address: [address] [address] Performed By: #### 2 4323-8 ####[facility] LABORATORYCLIA [id number] [place] [address] [place] ALT [Catalytic activity/Vol] 64 U/L High 10-54 [facility] Comment on above: Order Comment: Speci men Type: BLOOD SPECIMENOrdering Facility: [facility] Address: [address] [address] Performed By: #### 2 4323-8 ####[facility] LABORATORYCLIA [id number] [place] [address] [place] Anion gap [Moles/Vol] 16 mmol/L Normal 9-18 [facility] Comment on above: Order Comment: Speci men Type: BLOOD SPECIMENOrdering Facility: [facility] Address: [address] [address] Performed By: #### 2 4323-8 ####[facility] LABORATORYCLIA [id number] [place] [address] [place] AST [Catalytic activity/Vol] 70 U/L High 14-40 [facility] Comment on above: Order Comment: Speci men Type: BLOOD SPECIMENOrdering Facility: [facility] Address: [address] [address] Performed By: #### 2 4323-8 ####[facility] LABORATORYCLIA [id number] [place] [address] [place] Bilirubin [Mass/Vol] 0.3 mg/dL Normal 0.2-1.3 [facility] Comment on above: Order Comment: Speci men Type: BLOOD SPECIMENOrdering Facility: [facility] Address: [address] [address] Performed By: #### 2 4323-8 ####[facility] LABORATORYIA [id number] [place] [address] [place] Calcium [Mass/Vol] 9.3 mg/dL Normal 8.5-10.2 [facility] Comment on above: Order Comment: Speci men Type: BLOOD SPECIMENOrdering Facility: [facility] Address: [address] [place] [address] Performed By: #### 2 4323-8 ####[facility] CENTERIA [id number] [place] [address] [place] Chloride [Moles/Vol] 105 mmol/L Normal 97-105 [facility] Comment on above: Order Comment: Speci men Type: BLOOD SPECIMENOrdering Facility: [facility] Address: [address] [place] [address] Performed By: #### 2 4323-8 ####[facility] [id number] [place] [address] [place] CO2 [Moles/Vol] 21 mmol/L Low 22-30 [facility] Comment on above: Order Comment: Speci men Type: BLOOD SPECIMENOrdering Facility: [facility] Address: [address] [place] [address] Performed By: #### 2 4323-8 ####[facility] [id number] [place] [address] [place] Creatinine [Mass/Vol] 1.10 mg/dL Normal 0.73-1.22 [facility] Comment on above: Order Comment: Speci men Type: BLOOD SPECIMENOrdering Facility: [facility] Address: [address] [place] [address] Performed By: #### 2 4323-8 ####[facility] [id number] [place] [address] SPECULATOR [place] ESTIMATED GLOMERULAR FILTRATION RATE 85 mL/min/1.73m??? Normal >=60 [facility] Comment on above: Order Comment: Speci men Type: BLOOD SPECIMENOrdering Facility: [facility] Address: [address] [address] Result Comment: Isabel mated Glomerular Filtration Rate [...] actual GFR. Performed By: #### 2 4323-8 ####[facility] LABORATORYCLIA [id number] [place] [address] [place] Glucose [Mass/Vol] 138 mg/dL High 74-99 [facility] Comment on above: Order Comment: Carlos de la cruz Type: BLOOD SPECIMENOrdering Facility: [facility] Address: [address] [address] Result Comment: The [place] Diabetes Association (ADA) provides guidance for cutoff [...] Standards of Medical Care in Diabetes 2016, [place] [employer] Association. Diabetes Care. 2016.39(Suppl 1). Performed By: #### 2 4323-8 ####[facility] LABORATORYCLIA [id number] [place] [address] [place] Potassium [Moles/Vol] 3.7 mmol/L Normal 3.7-5.1 [facility] Comment on above: Order Comment: Carlos de la cruz Type: BLOOD SPECIMENOrdering Facility: [facility] Address: [address] [address] Performed By: #### 2 4323-8 ####[facility] LABORATORYCLIA [id number] [place] [address] SPECULATOR [place] Protein [Mass/Vol] 7.3 g/dL Normal 6.3-8.0 [facility] Comment on above: Order Comment: Speci men Type: BLOOD SPECIMENOrdering Facility: [facility] Address: [address] [address] Performed By: #### 2 4323-8 ####[facility] LABORATORYIA [id number] [place] [id number] SPECULATOR [place] Sodium [Moles/Vol] 142 mmol/L Normal 136-144 [facility] Comment on above: Order Comment: Speci men Type: BLOOD SPECIMENOrdering Facility: [facility] Address: [address] [address] Performed By: #### 2 4323-8 ####[facility] [id number] [place] [id number] SPECULATOR [place] Urea nitrogen [Mass/Vol] 11 mg/dL Normal 9-24 [facility] Comment on above: Order Comment: Speci men Type: BLOOD SPECIMENOrdering Facility: [facility] Address: [address] [address] Performed By: #### 2 4323-8 ####[facility] [id number] [place] [address] SPECULATOR [place] ECG COMPLETEon 03-25-2023 ECG COMPLETE Ventricular Rate : 1 02 BPM Atrial Rate : 102 BPM P-R Interval : 152 ms QRS Duration : 94 ms Q-T Interval : 314 ms QTC Calculation(Bazett) : 409 ms Calculated P Henderson : 47 degrees Calculated R Henderson : 5 degrees Calculated T Henderson : 67 degrees Sinus tachycardia Low voltage QRS Incomplete right bundle branch block Borderline ECG 1209 Confirmed by HELGA PADILLA M.D. ([id number]), primer expeditor and drier ALEN BARTH ([id number]) on 03/25/2023 2:04:25 PM NAME : KANDICE POLANCO PID : [id number] : 1980 Gender : Male Race : ORD : [id number] Procedure Date : Mar 25 2023 12:09:58 Edit Date : Mar 25 2023 14:04:29 Diagnosis: Sinus tachycardia Low voltage QRS Incomplete right bundle branch block Borderline ECG 1209 Confirmed by HELGA PADILLA M.D. (297), primer expeditor and drier ALEN BARTH ([id number]) on 03/25/2023 2:04:25 PM Test Reason : Arrhythmia Location : 302 : ED ED Overread By : HELGA PADILLA M.D. Edited By : ALEN BARTH Referred By : , Acquired by : , [facility] ED NOTEon 03-25-2023 ED NOTE HNO ID: [id number] Author: Catrina Rayo RN Service: ? Author Type: Registered Nurse Type: ED Notes Filed: 03/25/2023 5:26 PM Note Text: [facility] ED NOTE HNO ID: [id number] Author: Catrina Rayo RN Service: ? Author Type: Registered Nurse Type: ED Notes Filed: 03/25/2023 5:16 PM Note Text: Report given to Jailene RIVERA [facility] ED NOTE HNO ID: [id number] Author: Catrina Rayo RN Service: ? Author Type: Registered Nurse Type: ED Notes Filed: 03/25/2023 4:47 PM Note Text: Attempted to give report, nurse said she will call me back. [facility] ED NOTE HNO ID: [id number] Author: Martha Desai RN Service: ? Author Type: Registered Nurse Type: ED Notes Filed: 03/25/2023 3:19 PM Note Text: Episode of vomiting - MD aware [facility] ED NOTE HNO ID: [id number] Author: Martha Desai, RN Service: ? Author Type: Registered Nurse Type: ED Notes Filed: 03/25/2023 1:46 PM Note Text: Patient talking with central intake on the cordless phone [facility] ED NOTE HNO ID: [id number] Author: Martha Desai RN Service: ? Author Type: Registered Nurse Type: ED Notes Filed: 03/25/2023 2:01 PM Note Text: Patient reports he drinks about 8, 25 ounce beers a day. States his last drink was this morning which he vomited. Reports stopped his zyprexa x 2 weeks ago since he ran out of it. Reports he was taking double the dose prior [facility] ED NOTE HNO ID: [id number] Author: Martha Desai RN Service: ? Author Type: Registered Nurse Type: ED Notes Filed: 03/25/2023 12:11 PM Note Text: Belongings searched by security and stored at nursing desk [facility] ED NOTE HNO ID: [id number] Author: Sol Vaughan RN Service: ? Author Type: Registered Nurse Type: ED Notes Filed: 03/25/2023 11:58 AM Note Text: Bed: ED-12 Expected date: 03/25/23 Expected time: 11:42 AM Means of arrival: Comments: [facility] ED PROV NOTEon 03-25-2023 ED PROV NOTE HNO ID: [id number] Author: Louise Figueroa DO Service: Emergency Medicine [...] has a recent history of admission at [facility] for overuse of his Zyprexa, EtOH use. [...] on the same specimen through Client Services ([phone]) if contacted within 48 hours of initial testing. [1]Substance Abuse and Mental Health Services Administration (2012). Clinical Drug Testing in Primary Care Technical Assistance Publication Series 32. Department of Health and Human Services, [place], p.10. ALCOHOL/ETHANOL BLD - Abnormal; Notable for the following components: Ethanol 206 (*) <11 mg/dL All other comp (more content not included)... Normal [facility] Ethanol [Mass/Vol] 206 mg/dL High <11 [facility] Comment on above: Order Comment: Speci men Type: BLOOD SPECIMENOrdering Facility: [facility] Address: [address] [place] [address] Result Comment: Valu es > 80 mg/dL may indicate intoxication Performed By: #### 5 643-2 ####[facility] LABORATORYCLIA [id number] [facility] [place] [address] SPECULATOR [place] HISTORY PHYSICALon HISTORY PHYSICAL HNO ID: [id number] Author: Noreen Reyes MD Service: Hospital Medicine Author Type: Physician Type: HANDP Filed: 03/25/2023 3:39 PM Note Text: DEPARTMENT OF HOSPITAL MEDICINE HISTORY AND PHYSICAL EXAM SERVICE DATE: 03/25/2023 Code Status: Not on file SERVICE TIME: 3:29 PM Primary Care Physician: Shakeel Kaye, DO NIGHT AND WEEKEND COVERAGE: JAYE COVERAGE: Days: [phone], please contact via [employer] Nights: - floor: please page CC Hospitalist night cover [phone] - 4th floor: please page Hospitalist night cover [phone] - 5th floor: please page Hospitalist night cover [phone] Subjective CHIEF COMPLAINT: suicidal ideation, alcohol intoxication [...] and Airways Line Duration Peripheral 03/25/23 1220 [facility] Short Right Forearm 20 Gauge <1 day Peripheral 03/25/23 1255 [facility] Short Left Antecubital 22 Gauge <1 day [...] March 25, 2023 TIME: 3:29 PM Normal [facility] SARS-CoV-2 RNA Resp Ql TACOS+p gorane 03-25-2023 SARS-CoV-2 (COVID-19) RNA TACOS+probe Ql (Resp) COVID 19 RESULT: Not detected The method used is RT-PCR or an equivalent NAAT method. Reference Range(the expected result in uninfected individuals): Not detected Normal [facility] Comment on above: Performed By: #### 9 4500-6 ####[facility] LABORATORYCLIA [id number] [facility] [place] [address] [place] TOX SCREEN ROUT URon 023 Amphetamines Confirm (U) [Mass/Vol] Positive Abnormal Negative [facility] Comment on above: Order Comment: Speci men Type: URINE SPECIMENOrdering Facility: [facility] Address: [address] [place] [address] [place] [address] Result Comment: Cuto ff threshold at 1000 ng/mL. Performed By: #### U TOX2 ####[facility] LABORATORYCLIA [id number] [place] [address] [place] BARBITURATES, URINE Negative Normal Negative [facility] Comment on above: Order Comment: Speci men Type: URINE SPECIMENOrdering Facility: [facility]. [facility] Address: [address] [place] [address] Result Comment: Cuto ff threshold at 200 ng/mL. Performed By: #### U TOX2 ####[facility]ORATORYIA [id number] [place] [address] [place] BENZODIAZEPINES, UR Negative Normal Negative [facility] Comment on above: Order Comment: Speci men Type: URINE SPECIMENOrdering Facility: [facility] Address: [address] [place] [address] Result Comment: Cuto ff threshold at 200 ng/mL. Performed By: #### U TOX2 ####[facility] [id number] [place] [address] [place] CANNABINOIDS,URINE Positive Abnormal Negative [facility] Comment on above: Order Comment: Speci men Type: URINE SPECIMENOrdering Facility: [facility] Address: [address] [place] [address] Result Comment: Cuto ff threshold at 50 ng/mL. Performed By: #### U TOX2 ####[facility] [id number] [place] [address] [place] Cocaine Ql (U) Negative Normal Negative [facility] Comment on above: Order Comment: Speci men Type: URINE SPECIMENOrdering Facility: [facility] Address: [address] [place] [address] Result Comment: Cuto ff threshold at 300 ng/mL. Performed By: #### U TOX2 ####[facility] [id number] [place] [address] [place] Ethanol (U) [Mass/Vol] 270 mg/dL High <11 [facility] Comment on above: Order Comment: Speci men Type: URINE SPECIMENOrdering Facility: [facility] Address: [address] [place], [place] [id number] Performed By: #### U TOX2 ####[facility]ORY[facility] [id number] [address] [place] Opiates Screen Ql (U) Negative Normal Negative [facility] Comment on above: Order Comment: Speci men Type: URINE SPECIMENOrdering Facility: [facility] Address: [address] [place] [address] Result Comment: Cuto ff threshold at 300 ng/mL. Performed By: #### U TOX2 ####[facility]ORY[facility] [id number] [address] [place] oxyCODONE cutoff Screen (U) [Mass/Vol] Negative Normal Negative [facility] Comment on above: Order Comment: Speci men Type: URINE SPECIMENOrdering Facility: [facility] Address: [address] [place] [address] Result Comment: Cuto ff threshold at 100 ng/mL. Performed By: #### U TOX2 ####[facility] [id number] [address] [place] Phencyclidine Ql (U) Negative Normal Negative [facility] Comment on above: Order Comment: Speci men Type: URINE SPECIMENOrdering Facility: [facility] Address: [address] [place] [address] Result Comment: Cuto ff threshold at 25 ng/mL. Performed By: #### U TOX2 ####[facility] [id number] [address] [place] Urinalysis complete panel (U )on 03-25-2023 Bilirubin Ql (U) Negative Normal Negative [facility] Comment on above: Order Comment: Speci men Type: URINE SPECIMENOrdering Facility: [facility] Address: [address] [place] [address] Performed By: #### 2 4356-8 ####[facility] [id number] [place] [address] [place] Clarity (Unsp spec) Clear Normal Clear [facility] Comment on above: Order Comment: Speci men Type: URINE SPECIMENOrdering Facility: [facility] Address: [address] [place] [address] Performed By: #### 2 4356-8 ####[facility] [id number] [place] [address] [place] Color (U) Light Yellow Normal yellow [facility] Comment on above: Order Comment: Speci men Type: URINE SPECIMENOrdering Facility: [facility] Address: [address] [address] Performed By: #### 2 6-8 ####[facility] [id number] [place] [address] [place] Epithelial cells LM.HPF (Urine sed) [#/Area] Few Normal [facility] Comment on above: Order Comment: Speci men Type: URINE SPECIMENOrdering Facility: [facility] Address: [address] [place] [address] Performed By: #### 2 6-8 ####[facility] [id number] [place] [address] [place] Glucose Test strip (U) [Mass/Vol] Negative Normal Trace, Negative [facility] Comment on above: Order Comment: Speci men Type: URINE SPECIMENOrdering Facility: [facility] Address: [address] [place] [address] Performed By: #### 2 6-8 ####[facility] [id number] [place] [address] [place] Hemoglobin Ql (U) Negative Normal Negative, Trace [facility] Comment on above: Order Comment: Speci men Type: URINE SPECIMENOrdering Facility: [facility] Address: [address] [place] [address] Performed By: #### 2 4356-8 ####[facility] [id number] [place] [address] [place] Hyaline casts (Urine sed) [#/Area] 4-10 /LPF Abnormal 0 /LPF [facility] Comment on above: Order Comment: Speci men Type: URINE SPECIMENOrdering Facility: [facility] Address: [address] [place] [address] Performed By: #### 2 4356-8 ####[facility] [id number] [place], [place] [address] [place] [address] [place] Ketones Ql (U) Negative Normal Negative, Trace [facility] Comment on above: Order Comment: Speci men Type: URINE SPECIMENOrdering Facility: [facility] Address: [address] [place] [address] Performed By: #### 2 4356-8 ####[facility] [id number] [address] Leukocyte esterase Test strip Ql (U) Negative Normal Negative, 25 Fannie/uL [facility] Comment on above: Order Comment: Speci men Type: URINE SPECIMENOrdering Facility: [facility] Address: [address] [place] [address] Performed By: #### 2 4356-8 ####[facility] [id number] [place] [address] [place] Nitrite Ql (U) Negative Normal Negative [facility] Comment on above: Order Comment: Speci men Type: URINE SPECIMENOrdering Facility: [facility] Address: [address] [place] [address] Performed By: #### 2 4356-8 ####[facility] [id number] [address] [place] pH (U) 5.5 [pH] Normal 5.0-8.0 [facility] Comment on above: Order Comment: Speci men Type: URINE SPECIMENOrdering Facility: [facility] Address: [address] [place] [address] Performed By: #### 2 4356-8 ####[facility] [id number] [address] Protein (U) [Mass/Vol] Negative Normal Trace, Negative [facility] Comment on above: Order Comment: Speci men Type: URINE SPECIMENOrdering Facility: [facility] Address: [address] [place] [address] Performed By: #### 2 4356-8 ####[facility] [id number] [place] [address] [place] RBC LM.HPF (Urine sed) [#/Area] 0-3 /HPF Normal 0-3 /HPF [facility] Comment on above: Order Comment: Speci men Type: URINE SPECIMENOrdering Facility: [facility] Address: [address] [place] [address] Performed By: #### 2 4356-8 ####[facility] [id number] [address] [place] Specific gravity (U) [Rel density] 1.013 Normal 1.005-1.030 [facility] Comment on above: Order Comment: Speci men Type: URINE SPECIMENOrdering Facility: [facility] Address: [address] [place] [address] Performed By: #### 2 4356-8 ####[facility] [id number] [address] [place] Urobilinogen Ql (U) Normal Normal Negative [facility] Comment on above: Order Comment: Speci men Type: URINE SPECIMENOrdering Facility: [facility] Address: [address] [place] [address] Performed By: #### 2 4356-8 ####[facility] [id number] [place] [address] [place] WBC LM.HPF (Urine sed) [#/Area] 0-5 /HPF Normal 0-5 /HPF [facility] Comment on above: Order Comment: Speci men Type: URINE SPECIMENOrdering Facility: [facility] Address: [address] [place] [address] Performed By: #### 2 4356-8 ####[facility] LABORATORYCLIA [id number] [facility] [place] [address] [place] ECG 12 lead ECGon 03-21-2023 ECG 12 lead ECG [facility] Main [address] [address] Electrocardiograph Report Signed Patient: Kandice Polanco MR#: [id number] : 1980 Acct:[id number] Age/Sex: 42 / M ADM Date: 03/20/23 Loc: Room: [address] [place] [address] Type: ADM IN Attending Dr: William Vann [...] Signed By Sadia Dupont MD 0[address] Normal [facility] Alanine aminotransferase [En zymatic activity/volume] in Serum or PlasmaOrdered By: Mervin Palencia on 03-20-2023 ALT [Catalytic activity/Vol] 39 U/L 7-52 [facility] Albumin [Mass/volume] in Ser um or Plasma by Bromocresol green (BCG) dye binding methoOrdered By: Mervin Palencia on 03-20-2023 Albumin BCG dye [Mass/Vol] 4.2 g/dL 3.5-5.7 [facility] Alkaline phosphatase [Enzyma tic activity/volume] in Serum or PlasmaOrdered By: Mervin Palencia on 03-20-2023 ALP [Catalytic activity/Vol] 94 U/L 34-104 [facility] Amphetamine Screen Ql (U)Ord ered By: Mervin Palencia on 03-20-2023 Amphetamines Ql (U) Positive Negative [facility] Aspartate aminotransferase [ Enzymatic activity/volume] in Serum or PlasmaOrdered By: Mervin Palencia on 03-20-2023 AST [Catalytic activity/Vol] 49 U/L 13-39 [facility] Automated erythrocytes count in urine sediment (number/area)Ordered By: Mervin Palencia on 03-20-2023 RBC Auto (Urine sed) [#/Area] 0-1 [HPF] 0-4 [facility] Automated leukocytes count i n urine sediment (number/area)Ordered By: Mervin Palencia on 03-20-2023 WBC Auto (Urine sed) [#/Area] 0-1 [HPF] 0-4 [facility] Barbiturates [Presence] in U rine by Screen methodOrdered By: Mervin Palencia on 03-20-2023 Barbiturates Screen Ql (U) Negative Negative [facility] Basophils Auto (Bld) [#/Vol] Ordered By: Mervin Palencia on 03-20-2023 Basophils (Bld) [#/Vol] 0.1 10*3/uL 0.0-0.2 [facility] Basophils/100 WBC Auto (Bld) Ordered By: Mervin Palencia on 03-20-2023 Basophils/100 WBC (Bld) 0.8 % . [facility] Benzodiazepines Screen Ql (U )Ordered By: Mervin Palencia on 03-20-2023 Benzodiazepines Ql (U) Negative Negative [facility] Benzoylecgonine [Presence] i n Urine by Screen methodOrdered By: Mervin Palencia on 03-20-2023 Benzoylecgonine Screen Ql (U) Negative Negative [facility] Bilirubin Test strip Ql (U)O rdered By: Mervin Palencia on 03-20-2023 Bilirubin Ql (U) Negative Negative [facility] Bilirubin.total [Mass/volume ] in Serum or PlasmaOrdered By: Mervin Palencia on 03-20-2023 Bilirubin [Mass/Vol] 0.5 mg/dL 0.3-1.0 [facility] Calcium [Mass/volume] in Ser um or PlasmaOrdered By: Mervin Palencia on 03-20-2023 Calcium [Mass/Vol] 8.6 mg/dL 8.6-10.3 [facility] Cannabinoids [Presence] in U rine by Screen methodOrdered By: Mervin Palencia on 03-20-2023 Cannabinoids Screen Ql (U) Positive Negative [facility] Comment on above: These are unconfirme d results and should not be used for legal purposes. Drug Cut-Off Concentration: AMPH 1000 ng/mL ELISA 200 ng/mL PETE 200 ng/mL COCM 300 ng/mL OP 300 ng/mL PCP 25 ng/mL THC 20 ng/mL Carbon dioxide, total [Moles /volume] in Serum or PlasmaOrdered By: Mervin Palencia on 03-20-2023 CO2 [Moles/Vol] 23.2 mmol/L 21.0-31.0 [facility] Chloride [Moles/volume] in S patrick or PlasmaOrdered By: Mervin Palencia on 03-20-2023 Chloride [Moles/Vol] 100 mmol/L 98-107 [facility] Cholesterol [Mass/volume] in Serum or PlasmaOrdered By: Dwain Vann on 03-20-2023 Cholesterol [Mass/Vol] 183 mg/dL 140-200 [facility] Comment on above: Chol less than 200 m g/dl low riskChol 201-239 mg/dl borderline riskChol 240 mg/dl and greater high risk Cholesterol in LDL Calc [Mas s/Vol]Ordered By: Dwain Vann on 03-20-2023 Cholesterol in LDL [Mass/Vol] 81 mg/dL 0-100 [facility] Comment on above: LDL ATP III CLASSIFI CATIONLDL less than 100 mg/dL OptimalLDL 100-129 mg/dL Near or above optimalLDL 130-159 mg/dL Borderline highLDL 160-189 mg/dL HighLDL greater than 189 mg/dL Very high Cholesterol in VLDL Calc [Ma ss/Vol]Ordered By: Dwain Vann on 03-20-2023 Cholesterol in VLDL [Mass/Vol] 35 mg/dL [facility] Color Auto (U)Ordered By: Gio Palencia on 03-20-2023 Color (U) Yellow Yellow [facility] Complete Blood Count Auto Di ffon 03-20-2023 Basophils (Bld) [#/Vol] 0.1 10*3/uL Normal 0.0-0.2 [facility] Comment on above: Result Comment: PERF ORMED BY: [place] [address] PATHOLOGIST [employer] KAJAL DURON M.D. Performed By: #### C MP, ETOH, CBC #### [address] Basophils/100 WBC (Bld) 0.8 % Normal . [facility] Comment on above: Performed By: #### C MP, ETOH, CBC #### [address] Eosinophils (Bld) [#/Vol] 0.0 10*3/uL Normal 0.0-0.45 [facility] Comment on above: Performed By: #### C MP, ETOH, CBC #### [address] Eosinophils/100 WBC (Bld) 0.3 % Normal . [facility] Comment on above: Performed By: #### C MP, ETOH, CBC #### [address] Erythrocyte distribution width (RBC) [Ratio] 13.7 % Normal 12.0-14.8 [facility] Comment on above: Performed By: #### C MP, ETOH, CBC #### [address] Hematocrit (Bld) [Volume fraction] 41.6 % Normal 38.8-50.0 [facility] Comment on above: Performed By: #### C MP, ETOH, CBC #### [place] [address] [place] Hemoglobin (Bld) [Mass/Vol] 14.5 g/dL Normal 13.0-17.0 [facility] Comment on above: Performed By: #### C MP, ETOH, CBC #### [address] Lymphocytes (Bld) [#/Vol] 2.4 10*3/uL Normal 1.00-4.8 [facility] Comment on above: Performed By: #### C MP, ETOH, CBC #### [facility] [address] Lymphocytes/100 WBC (Bld) 29.6 % Normal . [facility] Comment on above: Performed By: #### C MP, ETOH, CBC #### [facility] [address] MCH (RBC) [Entitic mass] 34.1 pg Normal 27.5-35.2 [facility] Comment on above: Performed By: #### C MP, ETOH, CBC #### [address] MCV (RBC) [Entitic vol] 98.0 fL Normal 83.5-101 [facility] Comment on above: Performed By: #### C MP, ETOH, CBC #### [address] Mean Corpuscular HGB Conc 34.8 g/dL Normal 32.5-35.6 [facility] Comment on above: Performed By: #### C MP, ETOH, CBC #### [address] Monocytes (Bld) [#/Vol] 0.6 10*3/uL Normal 0.0-0.8 [facility] Comment on above: Performed By: #### C MP, ETOH, CBC #### [place] [address] [place] Monocytes/100 WBC (Bld) 15.48 % Normal 0.00-20.00 [facility] Comment on above: Performed By: #### C MP, ETOH, CBC #### [address] Monocytes/100 WBC (Bld) 7.3 % Normal . [facility] Comment on above: Performed By: #### C MP, ETOH, CBC #### [place] [address] Neutrophils (Bld) [#/Vol] 5.0 10*3/uL Normal 1.8-7.7 [facility] Comment on above: Performed By: #### C MP, ETOH, CBC #### [address] Neutrophils/100 WBC (Bld) 62.0 % Normal . [facility] Comment on above: Performed By: #### C MP, ETOH, CBC #### [address] NRBC% 0.2 /100{WBC} Normal 0-0.5 [facility] Comment on above: Performed By: #### C MP, ETOH, CBC #### [address] Platelet mean volume (Bld) [Entitic vol] 7.1 fL Normal 6.6-10.1 [facility] Comment on above: Performed By: #### C MP, ETOH, CBC #### [address] Platelets (Bld) [#/Vol] 323 10*3/uL Normal 150-450 [facility] Comment on above: Performed By: #### C MP, ETOH, CBC #### [address] RBC (Bld) [#/Vol] 4.24 10*6/uL Normal 3.90-5.60 [facility] Comment on above: Performed By: #### C MP, ETOH, CBC #### [address] WBC (Bld) [#/Vol] 8.0 10*3/uL Normal 4.1-10.5 [facility] Comment on above: Performed By: #### C MP, ETOH, CBC #### [address] Comprehensive Metabolic Pane jordan 03-20-2023 Albumin [Mass/Vol] 4.2 g/dL Normal 3.5-5.7 [facility] Comment on above: Performed By: #### L IPID, TSH3 wRFLX, [id number] #### [facility] [address] [place] [address] Albumin/Globulin [Mass ratio] 1.4 {ratio} Normal [facility] Comment on above: Performed By: #### L IPID, TSH3 wRFLX, [id number] #### [facility] [address] [place] [address] ALP [Catalytic activity/Vol] 94 U/L Normal 34-104 [facility] Comment on above: Performed By: #### L IPID, TSH3 wRFLX, [id number] #### [address] ALT [Catalytic activity/Vol] 39 U/L Normal 7-52 [facility] Comment on above: Performed By: #### L IPID, TSH3 wRFLX, [id number] #### [address] Anion gap [Moles/Vol] 17.4 mmol/L High 6.0-15.0 [facility] Comment on above: Performed By: #### L IPID, TSH3 wRFLX, [id number] #### [address] AST [Catalytic activity/Vol] 49 U/L High 13-39 [facility] Comment on above: Performed By: #### L IPID, TSH3 wRFLX, [id number] #### [address] Bilirubin [Mass/Vol] 0.5 mg/dL Normal 0.3-1.0 [facility] Comment on above: Performed By: #### L IPID, TSH3 wRFLX, [id number] #### [address] Calcium [Mass/Vol] 8.6 mg/dL Normal 8.6-10.3 [facility] Comment on above: Performed By: #### L IPID, TSH3 wRFLX, [id number] #### [facility] [address] [place] [address] Chloride [Moles/Vol] 100 mmol/L Normal 98-107 [facility] Comment on above: Performed By: #### L IPID, TSH3 wRFLX, [id number] #### [address] CO2 [Moles/Vol] 23.2 mmol/L Normal 21.0-31.0 [facility] Comment on above: Performed By: #### L IPID, TSH3 wRFLX, [id number] #### [address] Creatinine [Mass/Vol] 0.91 mg/dL Normal 0.70-1.30 [facility] Comment on above: Performed By: #### L IPID, TSH3 wRFLX, [id number] #### [address] Creatinine Clr Calc Pharmacy 118.83 [facility] Comment on above: Result Comment: PERF ORMED BY: [place] [address] PATHOLOGIST [employer] KAJAL DURON M.D. Performed By: #### L IPID, TSH3 wRFLX, [id number] #### [address] GFR/1.73 sq M.predicted MDRD (S/P/Bld) [Vol rate/Area] mL/min/{1.73_m2} [facility] Comment on above: Performed By: #### L IPID, TSH3 wRFLX, [id number] #### [address] Globulin (S) [Mass/Vol] 3.0 g/dL [facility] Comment on above: Performed By: #### L IPID, TSH3 wRFLX, [id number] #### [address] Glucose [Mass/Vol] 87 mg/dL Normal 70-100 [facility] Comment on above: Result Comment: [facility] Glucose Reference Range is dependent on time and content of last meal. Glucose of more than 200 mg/dL in a nonstressed, ambulatory subject supports the diagnosis of Diabetes Mellitus. ADA recommended reference range Performed By: #### L IPID, TSH3 wRFLX, [id number] #### [facility] [address] [place] [address] [place] Potassium [Moles/Vol] 3.6 mmol/L Normal 3.5-5.1 [facility] Comment on above: Performed By: #### L IPID, TSH3 wRFLX, [id number] #### [facility] [address] [place] [address] Protein [Mass/Vol] 7.2 g/dL Normal 6.4-8.9 [facility] Comment on above: Performed By: #### L IPID, TSH3 wRFLX, [id number] #### [place] [address] [place] Sodium [Moles/Vol] 137 mmol/L Normal 136-145 [facility] Comment on above: Performed By: #### L IPID, TSH3 wRFLX, [id number] #### [address] Urea nitrogen [Mass/Vol] 11 mg/dL Normal 7-25 [facility] Comment on above: Performed By: #### L IPID, TSH3 wRFLX, [id number] #### [facility] [address] [place] [address] [place] Creatinine [Mass/volume] in Serum or PlasmaOrdered By: Mervin Palencia on 03-20-2023 Creatinine [Mass/Vol] 0.91 mg/dL 0.70-1.30 [facility] Dipstick and Microscopicon 0 03-20-2023 Appearance (U) Clear Normal Clear [facility] Comment on above: Order Comment: Name Collection Type:: Clean-Voided Midstream Performed By: #### U RDS, ADDONUAPLUS #### [facility] [address] [place] [address] [place] Bacteria,Urine None Seen Normal None Seen [facility] Comment on above: Order Comment: Name Collection Type:: Clean-Voided Midstream Performed By: #### U RDS, ADDONUAPLUS #### [facility] [address] [place] [address] [place] Bilirubin,Urine Negative Normal Negative [facility] Comment on above: Order Comment: Name Collection Type:: Clean-Voided Midstream Performed By: #### U RDS, ADDONUAPLUS #### [facility] [address] [place] [address] [place] Color (U) Yellow Normal Yellow [facility] Comment on above: Order Comment: Name Collection Type:: Clean-Voided Midstream Performed By: #### U RDS, ADDONUAPLUS #### [facility] [address] [place] [address] [place] Glucose Ql (U) Normal Normal Normal [facility] Comment on above: Order Comment: Name Collection Type:: Clean-Voided Midstream Performed By: #### U RDS, ADDONUAPLUS #### [facility] [address] [place] [address] [place] Hyaline Casts,Urine 0-8 Normal 0-8 [facility] Comment on above: Order Comment: Name Collection Type:: Clean-Voided Midstream Result Comment: PERF ORMED BY: [place] [address] PATHOLOGIST [employer] KAJAL DURON M.D. Performed By: #### U RDS, ADDONUAPLUS #### [facility] [address] [place] [address] [place] Ketones Ql (U) 1+ High Negative [facility] Comment on above: Order Comment: Name Collection Type:: Clean-Voided Midstream Performed By: #### U RDS, ADDONUAPLUS #### [facility] [address] [place] [address] [place] Leukocyte esterase Test strip Ql (U) 1+ High Negative [facility] Comment on above: Order Comment: Name Collection Type:: Clean-Voided Midstream Performed By: #### U RDS, ADDONUAPLUS #### [facility] [address] [place] [address] [place] Nitrite,Urine Negative Normal Negative [facility] Comment on above: Order Comment: Name Collection Type:: Clean-Voided Midstream Performed By: #### U RDS, ADDONUAPLUS #### [address] Occult Blood,Urine Negative Normal Negative [facility] Comment on above: Order Comment: Name Collection Type:: Clean-Voided Midstream Result Comment: PERF ORMED BY: [place] [address] PATHOLOGIST [employer] KAJAL DURON M.D. Performed By: #### U RDS, ADDONUAPLUS #### [address] pH (U) 5.0 [pH] Normal 5.0-9.0 [facility] Comment on above: Order Comment: Name Collection Type:: Clean-Voided Midstream Performed By: #### U RDS, ADDONUAPLUS #### [place] [address] [place] Protein,Urine Negative Normal Negative [facility] Comment on above: Order Comment: Name Collection Type:: Clean-Voided Midstream Performed By: #### U RDS, ADDONUAPLUS #### [place] [address] [place] RBC LM.HPF (Urine sed) [#/Area] 0 /[HPF] Normal 0-4 [facility] Comment on above: Order Comment: Name Collection Type:: Clean-Voided Midstream Performed By: #### U RDS, ADDONUAPLUS #### [place] [address] [place] Specificy Delevan,Urine 1.022 Normal 1.001-1.030 [facility] Comment on above: Order Comment: Name Collection Type:: Clean-Voided Midstream Performed By: #### U RDS, ADDONUAPLUS #### [address] [address] [place] Squamous Epithelial Cell,Urine 0-1 Normal 0-2 [facility] Comment on above: Order Comment: Name Collection Type:: Clean-Voided Midstream Performed By: #### U RDS, ADDONUAPLUS #### [facility] [address] [place] [address] Urobilinogen,Urine Normal Normal Normal [facility] Comment on above: Order Comment: Name Collection Type:: Clean-Voided Midstream Performed By: #### U RDS, ADDONUAPLUS #### [facility] [address] [place] [address] WBC LM.HPF (Urine sed) [#/Area] 0 /[HPF] Normal 0-4 [facility] Comment on above: Order Comment: Name Collection Type:: Clean-Voided Midstream Performed By: #### U RDS, ADDONUAPLUS #### [facility] [address] [place] [address] Drug Screen,Urineon 03-20-20 23 Amphetamine Screen,Urine Positive High Negative [facility] Comment on above: Performed By: #### U RDS, ADDONUAPLUS #### [facility] [address] [place] [address] Barbiturate Screen,Urine Negative Normal Negative [facility] Comment on above: Performed By: #### U RDS, ADDONUAPLUS #### [facility] [address] [place] [address] [place] Benzodiazepines Screen,Urine Negative Normal Negative [facility] Comment on above: Performed By: #### U RDS, ADDONUAPLUS #### [facility] [address] [place] [address] Cannabinoid Screen,Urine Positive High Negative [facility] Comment on above: Result Comment: Thes e are unconfirmed results and should not be used for legal purposes. Drug Cut-Off Concentration: AMPH 1000 ng/mL ELISA 200 ng/mL PETE 200 ng/mL COCM 300 ng/mL OP 300 ng/mL PCP 25 ng/mL THC 20 ng/mL PERFORMED BY: [place] [address] PATHOLOGIST [employer] OPER[employer] KAJAL DURON M.D. Performed By: #### U RDS, ADDONUAPLUS #### [facility] [address] [place] [address] [place] Cocaine Screen,Urine Negative Normal Negative [facility] Comment on above: Performed By: #### U RDS, ADDONUAPLUS #### [facility] [address] Opiate Screen,Urine Negative Normal Negative [facility] Comment on above: Performed By: #### U RDS, ADDONUAPLUS #### [facility] [address] [place] [address] [place] Phencyclidine Screen,Urine Negative Normal Negative [facility] Comment on above: Performed By: #### U RDS, ADDONUAPLUS #### [facility] [address] [place] [address] [place] Eosinophils Auto (Bld) [#/Vo l]Ordered By: Mervin Palencia on 03-20-2023 Eosinophils (Bld) [#/Vol] 0.0 10*3/uL 0.0-0.45 [facility] Eosinophils/100 WBC Auto (Bl d)Ordered By: Mervin Palencia on 03-20-2023 Eosinophils/100 WBC (Bld) 0.3 % . [facility] Erythrocyte distribution wid th Auto (RBC) [Ratio]Ordered By: Mervin Palencia on 03-20-2023 Erythrocyte distribution width (RBC) [Ratio] 13.7 % 12.0-14.8 [facility] Ethanol [Mass/volume] in Ser um or PlasmaOrdered By: Mervin Palencia on 03-20-2023 Ethanol [Mass/Vol] 144 mg/dL [facility] Ethanol [Mass/Vol] 0.144 % [facility] Ethyl Alcohol Profileon 03-02 Ethanol [Mass/Vol] 144 mg/dL Normal [facility] Comment on above: Performed By: #### L IPID, TSH3 wRFLX, [id number] #### [facility] [address] [place] [address] [place] Percent Ethanol 0.144 % Normal [facility] Comment on above: Result Comment: PERF ORMED BY: [facility] [address] [place] [address] PATHOLOGIST [employer]PER[employer] KAJAL DURON M.D. Performed By: #### L IPID, TSH3 wRFLX, [id number] #### [facility] [address] Globulin Calc (S) [Mass/Vol] Ordered By: Mervin Palencia on 03-20-2023 Globulin (S) [Mass/Vol] 3.0 g/dL [facility] Glucose [Mass/volume] in Ser um or PlasmaOrdered By: Mervin Palencia on 03-20-2023 Glucose [Mass/Vol] 87 mg/dL 70-100 [facility] Comment on above: ADA recommended refe rence rangeRandom Glucose Reference Range is dependent on time and content of last meal. Glucose of more than 200 mg/dL in a nonstressed, ambulatory subject supports the diagnosis of Diabetes Mellitus. Hematocrit Auto (Bld) [Volum e fraction]Ordered By: Mervin Palencia on 03-20-2023 Hematocrit (Bld) [Volume fraction] 41.6 % 38.8-50.0 [facility] Hemoglobin [Mass/volume] in BloodOrdered By: Mervin Palencia on 03-20-2023 Hemoglobin (Bld) [Mass/Vol] 14.5 g/dL 13.0-17.0 [facility] Ketones Auto test strip (U) [Mass/Vol]Ordered By: Mervin Palencia on 03-20-2023 Ketones (U) [Mass/Vol] 1+ Negative [facility] Laboratory - UrinalysisOrder ed By: Mervin Palencia on 03-20-2023 Hyaline casts LM Ql (Urine sed) 0-8 [LPF] 0-8 [facility] Leukocytes [#/volume] correc gisella for nucleated erythrocytes in Blood by Automated counOrdered By: Mervin Palencia on 03-20-2023 WBC corrected for nucl RBC Auto (Bld) [#/Vol] 8.0 10*3/uL 4.1-10.5 [facility] Lipid Panelon 03-20-2023 Cholesterol [Mass/Vol] 183 mg/dL Normal 140-200 [facility] Comment on above: Order Comment: Comme nt use from ER Result Comment: Chol less than 200 mg/dl low risk Chol 201-239 mg/dl borderline risk Chol 240 mg/dl and greater high risk Performed By: #### L IPID, TSH3 wRFLX, [id number] #### [facility] [address] [place] [address] [place] Cholesterol in HDL [Mass/Vol] 67 mg/dL Normal 23-92 [facility] Comment on above: Order Comment: Comme nt use from ER Result Comment: HDL CHOL ATP-III CLASSIFICATION Cardiovascular Risk HDL > or equal to 60 mg/dL LOW HDL < 40 mg/dL HIGH Performed By: #### L IPID, TSH3 wRFLX, [id number] #### [facility] [address] [place] [address] [place] Cholesterol.total/Cho lesterol in HDL [Mass ratio] 2.7 {ratio} Normal <5.0 [facility] Comment on above: Order Comment: Comme nt use from ER Performed By: #### L IPID, TSH3 wRFLX, [id number] #### [facility] [address] [place] [address] [place] LDL Cholesterol,Calculate d 81 mg/dL Normal 0-100 [facility] Comment on above: Order Comment: Comme nt use from ER Result Comment: LDL ATP III CLASSIFICATION LDL less than 100 mg/dL Optimal LDL 100-129 mg/dL Near or above optimal LDL 130-159 mg/dL Borderline high LDL 160-189 mg/dL High LDL greater than 189 mg/dL Very high Performed By: #### L IPID, TSH3 wRFLX, [id number] #### [facility] [address] [place] [address] [place] Triglyceride w/Reflex 177 mg/dL High 0-149 [facility] Comment on above: Order Comment: Comme nt use from ER Result Comment: TRIG ATP III CLASSIFICATION TRIG less than 150 mg/dL Normal TRIG 150-199 mg/dL Borderline high TRIG 200-500 mg/dL High TRIG greater than 500 mg/dL Very high Standard traceable to the Center for Disease Conrtrol and Prevention (CDC) test method. Performed By: #### L IPID, TSH3 wRFLX, [id number] #### [facility] [address] VLDL CHOLESTEROL 35 mg/dL Normal [facility] Comment on above: Order Comment: Comme nt use from ER Performed By: #### L IPID, TSH3 wRFLX, [id number] #### [facility] [address] Lymphocytes Auto (Bld) [#/Vo l]Ordered By: Mervin Palencia on 03-20-2023 Lymphocytes (Bld) [#/Vol] 2.4 10*3/uL 1.00-4.8 [facility] Lymphocytes/100 WBC Auto (Bl d)Ordered By: Mervin Palencia on 03-20-2023 Lymphocytes/100 WBC (Bld) 29.6 % . [facility] MCH Auto (RBC) [Entitic mass ]Ordered By: Mervin Palencia on 03-20-2023 MCH (RBC) [Entitic mass] 34.1 pg 27.5-35.2 [facility] MCHC Auto (RBC) [Mass/Vol]Or dered By: Mervin Palencia on 03-20-2023 MCHC (RBC) [Mass/Vol] 34.8 g/dL 32.5-35.6 [facility] MCV Auto (RBC) [Entitic vol] Ordered By: Mervin Palencia on 03-20-2023 MCV (RBC) [Entitic vol] 98.0 fL 83.5-101 [facility] Monocyte distribution width [Entitic volume] in Blood by AutomatedOrdered By: Mervin Palencia on 03-20-2023 Monocyte distribution width Auto (Bld) [Entitic vol] 15.48 % 0.00-20.00 [facility] Monocytes Auto (Bld) [#/Vol] Ordered By: Mervin Palencia on 03-20-2023 Monocytes (Bld) [#/Vol] 0.6 10*3/uL 0.0-0.8 [facility] Monocytes/100 WBC Auto (Bld) Ordered By: Mervin Palencia on 03-20-2023 Monocytes/100 WBC (Bld) 7.3 % . [facility] Neutrophils Auto (Bld) [#/Vo l]Ordered By: Mervin Palencia on 03-20-2023 Neutrophils (Bld) [#/Vol] 5.0 10*3/uL 1.8-7.7 [facility] Neutrophils/100 WBC Auto (Bl d)Ordered By: Mervin Palencia on 03-20-2023 Neutrophils/100 WBC (Bld) 62.0 % . [facility] Nitrite Test strip Ql (U)Ord ered By: Mervin Palencia on 03-20-2023 Nitrite Ql (U) Negative Negative [facility] No Panel InformationOrdered By: Mervin Palencia on 03-20-2023 Estimated GFR (CKD-EPI) > 60.0 mL/Min [facility] Creatinine Clearance (Chem 118.83 [facility] Nucleated erythrocytes [Pres ence] in Blood by Automated countOrdered By: Mervin Palencia on 03-20-2023 Nucleated RBC Auto Ql (Bld) 0.2 /100{WBC} 0-0.5 [facility] Opiates [Presence] in Urine by Screen methodOrdered By: Mervin Palencia on 03-20-2023 Opiates Screen Ql (U) Negative Negative [facility] Phencyclidine Screen Ql (U)O rdered By: Mervin Palencia on 03-20-2023 Phencyclidine Ql (U) Negative Negative [facility] Platelet mean volume Auto (B ld) [Entitic vol]Ordered By: Mervni Palencia on 03-20-2023 Platelet mean volume (Bld) [Entitic vol] 7.1 fL 6.6-10.1 [facility] Platelets Auto (Bld) [#/Vol] Ordered By: Mervin Palencia on 03-20-2023 Platelets (Bld) [#/Vol] 323 10*3/uL 150-450 [facility] Potassium [Moles/volume] in Serum or PlasmaOrdered By: Mrevin Palencia on 03-20-2023 Potassium [Moles/Vol] 3.6 mmol/L 3.5-5.1 [facility] Protein Auto test strip (U) [Mass/Vol]Ordered By: Mervin Palencia on 03-20-2023 Protein (U) [Mass/Vol] Negative Negative [facility] Protein [Mass/volume] in Ser um or PlasmaOrdered By: Mervin Palencia on 03-20-2023 Protein [Mass/Vol] 7.2 g/dL 6.4-8.9 [facility] RBC Auto (Bld) [#/Vol]Ordere d By: Mervin Palencia on 03-20-2023 RBC (Bld) [#/Vol] 4.24 10*6/uL 3.90-5.60 [facility] Serum or plasma albumin/glob ulin mass ratioOrdered By: Mervin Palencia on 03-20-2023 Albumin/Globulin [Mass ratio] 1.4 {ratio} [facility] Serum or plasma anion gap de terminationOrdered By: Mervin Palencia on 03-20-2023 Anion gap [Moles/Vol] 17.4 mmol/L 6.0-15.0 [facility] Serum or plasma high density lipoprotein (HDL) cholesterol measurementOrdered By: Dwain Vann on 03-20-2023 Cholesterol in HDL [Mass/Vol] 67 mg/dL 23-92 [facility] Comment on above: HDL CHOL ATP-III CLA SSIFICATION Cardiovascular RiskHDL > or equal to 60 mg/dL LOWHDL < 40 mg/dL HIGH Serum or plasma total choles terol/high density lipoprotein (HDL) cholesterol mass ratOrdered By: Dwain Vann on 03-20-2023 Cholesterol.total/Cho lesterol in HDL [Mass ratio] 2.7 {ratio} <5.0 [facility] Sodium [Moles/volume] in Ser um or PlasmaOrdered By: Mervin Palencia on 03-20-2023 Sodium [Moles/Vol] 137 mmol/L 136-145 [facility] Specific gravity Auto test s trip (U) [Rel density]Ordered By: Mervin Palencia on 03-20-2023 Specific gravity (U) [Rel density] 1.022 1.001-1.030 [facility] Squamous epithelial cells de tection in urine sediment by light microscopyOrdered By: Mervin Palencia on 03-20-2023 Epithelial cells.squamous LM Ql (Urine sed) 0-1 [HPF] 0-2 [facility] Thyroid Stim Hormone w/Rflxo n 03-20-2023 Thyroid Stim Hormone w/Rflx 2.14 u[iU]/mL Normal 0.45-5.33 [facility] Comment on above: Order Comment: Comme nt use from ER Performed By: #### L IPID, TSH3 wRFLX, [id number] #### [facility] [address] Thyrotropin [Units/volume] i n Serum or PlasmaOrdered By: Dwain Vann on 03-20-2023 TSH Qn 2.14 m[IU]/L 0.45-5.33 [facility] Triglyceride [Mass/volume] i n Serum or PlasmaOrdered By: Dwain Vann on 03-20-2023 Triglyceride [Mass/Vol] 177 mg/dL 0-149 [facility] Comment on above: TRIG ATP III CLASSIF ICATIONTRIG less than 150 mg/dL NormalTRIG 150-199 mg/dL Borderline highTRIG 200-500 mg/dL High TRIG greater than 500 mg/dL Very highStandard traceable to the Center for Disease Conrtrol and Prevention (CDC) test method. Urea nitrogen [Mass/volume] in Serum or PlasmaOrdered By: Mervin Palencia on 03-20-2023 Urea nitrogen [Mass/Vol] 11 mg/dL 7-25 [facility] Urine bacteria detection by automated methodOrdered By: Mervin Palencia on 03-20-2023 Bacteria Auto Ql (U) None seen None Seen [facility] Urine clarity by refractomet ry automatedOrdered By: Mervin Palencia on 03-20-2023 Clarity Refractometry automated (U) Clear Clear [facility] Urine glucose measurement by automated test strip (mass/volume)Ordered By: Mervin Palencia on 03-20-2023 Glucose Auto test strip (U) [Mass/Vol] Normal mg/dL Normal [facility] Urine hemoglobin detection b y automated test stripOrdered By: Mervin Palencia on 03-20-2023 Hemoglobin Auto test strip Ql (U) Negative Negative [facility] Urine leukocyte esterase det ection by automated test stripOrdered By: Mervin Palencia on 03-20-2023 Leukocyte esterase Auto test strip Ql (U) 1+ Negative [facility] Urobilinogen Auto test strip (U) [Mass/Vol]Ordered By: Mervin Palencia on 03-20-2023 Urobilinogen (U) [Mass/Vol] Normal mg/dL Normal [facility] Vitamin D 25 Hydroxy Totalon 03-20-2023 Vitamin D 25 Hydroxy Total 37.3 ng/mL Normal 30-100 [facility] Comment on above: Order Comment: Comme nt use from ER Result Comment: JENNIFER MIN D STATUS 25(OH)VITAMIN D RANGE (ng/mL) Deficient <20 Insufficient 20 to <30 Sufficient 30 to 100 Reference: Agnes Garcia, Kaye SHELLEY, et al. Evaluation,treatment, and prevention of vitamin D deficiency; an Endocrine Society clinical practice guideline. JCEM. 2010; 96(7):1911-. PERFORMED BY: [place] [address] PATHOLOGIST [employer] OPER[employer] KAJAL DURON M.D. Performed By: #### L IPID, TSH3 wRFLX, [id number] #### [address] Vitamin D+Metabolites [Mass/ volume] in Serum or PlasmaOrdered By: Dwain Vann on 03-20-2023 Vitamin D+Metabolites [Mass/Vol] 37.3 ng/mL 30-100 [facility] Comment on above: VITAMIN D STATUS 25( [place])VITAMIN D RANGE (ng/mL) Deficient <20 Insufficient 20 to <30Sufficient 30 to 100Reference: Agnes Garcia, Kaye SHELLEY, et al. Evaluation,treatment, and prevention of vitamin D deficiency; an Endocrine Society clinical practice guideline. JCEM. 2010; 96(7):1911-30. WBC Auto (Bld) [#/Vol]Ordere d By: Mervin Palencia on 03-20-2023 WBC (Bld) [#/Vol] 8.0 10*3/uL 4.1-10.5 [facility] pH Auto test strip (U)Ordere d By: Mervin Palencia on 03-20-2023 pH (U) 5.0 [pH] 5.0-9.0 [facility] Amphetamine Screen Ql (U)Ord ered By: Jonathan Workman on 01-24-2023 Amphetamines Ql (U) Negative Negative [facility] Barbiturates [Presence] in U rine by Screen methodOrdered By: Jonathan Workman on 01-24-2023 Barbiturates Screen Ql (U) Negative Negative [facility] Benzodiazepines Screen Ql (U )Ordered By: Jonathan Workman on 01-24-2023 Benzodiazepines Ql (U) Negative Negative [facility] Benzoylecgonine [Presence] i n Urine by Screen methodOrdered By: Jonathan Workman on 01-24-2023 Benzoylecgonine Screen Ql (U) Negative Negative [facility] Cannabinoids [Presence] in U rine by Screen methodOrdered By: Jonathan Workman on 01-24-2023 Cannabinoids Screen Ql (U) Positive Negative [facility] Comment on above: These are unconfirme d results and should not be used for legal purposes. Drug Cut-Off Concentration: AMPH 1000 ng/mL ELISA 200 ng/mL PETE 200 ng/mL COCM 300 ng/mL OP 300 ng/mL PCP 25 ng/mL THC 20 ng/mL Drug Screen,Urineon 01-25-20 Amphetamine Screen,Urine Negative Normal Negative [facility] Comment on above: Performed By: #### U RDS #### [facility] [address] [place] [address] [place] Barbiturate Screen,Urine Negative Normal Negative [facility] Comment on above: Performed By: #### U RDS #### [facility] [address] [place] [address] [place] Benzodiazepines Screen,Urine Negative Normal Negative [facility] Comment on above: Performed By: #### U RDS #### [facility] [address] [place] [address] [place] Cannabinoid Screen,Urine Positive High Negative [facility] Comment on above: Result Comment: Thes e are unconfirmed results and should not be used for legal purposes. Drug Cut-Off Concentration: AMPH 1000 ng/mL ELISA 200 ng/mL PETE 200 ng/mL COCM 300 ng/mL OP 300 ng/mL PCP 25 ng/mL THC 20 ng/mL PERFORMED BY: [place] [address] PATHOLOGIST [employer] OPER[employer] AKJAL DURON M.D. Performed By: #### U RDS #### [address] Cocaine Screen,Urine Negative Normal Negative [facility] Comment on above: Performed By: #### U RDS #### [address] Opiate Screen,Urine Negative Normal Negative [facility] Comment on above: Performed By: #### U RDS #### [address] Phencyclidine Screen,Urine Negative Normal Negative [facility] Comment on above: Performed By: #### U RDS #### [address] 01-24-2023 L ---- Specimen: [id number] Received: 01/24/23 Status: RENAE Mari Num: [id number] Spec Type: Surgical Subm Dr: Jonathan Workman MD Tissues: A Colon Biopsy (RECTAL POLYPS X2) Procedures: HE/2, Gross/Micro L4 Age/ Patient Sex Location Account Attending Physician Kandice Polanco /M [id number] Jonathan Workman MD SPEC NUM: [id number] RECD: 01/24/23 STATUS: RENAE VALDEZ NUM: [id number] AYLIN: 01/24/[address] [facility] [address]: Jonathan Workman MD ENTERED: 01/24/[address]: NIC TYPE: Surgical DEPT: S ORDERED: HE/2, Gross/Micro [...] microscopic examination confirms the diagnosis. CPT Codes 84752 Specimen: [id number] Received: 01/24/23 Status: RENAE Valdez Num: [id number] Spec Type: Surgical Subm Dr: Jonathan Workman MD Tissues: A Colon Biopsy (RECTAL POLYPS X2) Procedures: HE/2, Gross/Micro L4 Patient: Kandice Polanco [id number] (Continued) Signed (signature on file) Jayda Wilson MD 01/25/23 [address] [facility] Opiates [Presence] in Urine by Screen methodOrdered By: Jonathan Workman on 01-24-2023 Opiates Screen Ql (U) Negative Negative [facility] Phencyclidine Screen Ql (U)O rdered By: Jonathan Workman on 01-24-2023 Phencyclidine Ql (U) Negative Negative [facility] HEPATITIS PANEL, GENERALon 0 04-19-2022 HEPATITIS A AB, TOTAL Reactive Abnormal NON-REACTIVE [facility] Comment on above: Order Comment: FASTI NG:NO FASTING: NO Result Comment: For additional information, please refer to http://education.[employer]/faq/EXI172 (This link is being provided for informational/ educational purposes only.) Performed By: #### 6 462 #### [facility] [place] [address] [employer] Welder: Kaleb Wong MD HEPATITIS B CORE AB TOTAL Non-Reactive Normal NON-REACTIVE [facility] Comment on above: Order Comment: FASTI NG:NO FASTING: NO Performed By: #### 6 462 #### [facility] [place] [address] [employer] Welder: Kaleb Wong MD HEPATITIS B SURFACE ANTIBODY QL Non-Reactive Normal NON-REACTIVE [facility] Comment on above: Order Comment: FASTI NG:NO FASTING: NO Performed By: #### 6 462 #### [facility] [place] [address] [employer] Welder: Kaleb Wong MD HEPATITIS B SURFACE ANTIGEN Non-Reactive Normal NON-REACTIVE [facility] Comment on above: Order Comment: FASTI NG:NO FASTING: NO Performed By: #### 6 462 #### [facility] [place] [address] [employer] Welder: Kaleb Wong MD HEPATITIS C ANTIBODY Non-Reactive Normal NON-REACTIVE [facility] Comment on above: Order Comment: FASTI NG:NO FASTING: NO Performed By: #### 6 462 #### [facility] [place] [address] [employer] Welder: Kaleb Wong MD INDEX 0.07 Normal <1.00 [facility] Comment on above: Order Comment: FASTI NG:NO FASTING: NO Result Comment: HCV antibody was non-reactive. There is no laboratory evidence of HCV infection. In most cases, no further action is required. However, if recent HCV exposure is suspected, a test for HCV RNA (test code 28369) is suggested. For additional information please refer to http://education.[employer]/faq/EDC73a9 (This link is being provided for informational/ educational purposes only.) Performed By: #### 6 462 #### [facility] [place] [address] [employer] Welder: Kaleb Wong MD [facility] 04-17-2022 Albumin [Mass/Vol] 3.9 g/dL Normal 3.6-5.1 [facility] Comment on above: Order Comment: FASTI NG:YES FASTING: YES Performed By: #### 1 0231 #### [facility] [place] [address] [employer] Welder: Kaleb Wong MD Albumin/Globulin [Mass ratio] 1.3 {ratio} Normal 1.0-2.5 [facility] Comment on above: Order Comment: FASTI NG:YES FASTING: YES Performed By: #### 1 0231 #### [facility] [place] [address] [employer]der: Kaleb Wong MD ALP [Catalytic activity/Vol] 141 U/L High 36-130 [facility] Comment on above: Order Comment: FASTI NG:YES FASTING: YES Performed By: #### 1 0231 #### [facility] [place] [address] [employer] Welder: Kaleb Wong MD ALT [Catalytic activity/Vol] 74 U/L High 9-46 [facility] Comment on above: Order Comment: FASTI NG:YES FASTING: YES Performed By: #### 1 0231 #### [facility] [place] [address] [employer] Welder: Kaleb Wong MD AST [Catalytic activity/Vol] 116 U/L High 10-40 [facility] Comment on above: Order Comment: FASTI NG:YES FASTING: YES Performed By: #### 1 0231 #### [facility] [place] [address] [employer] Welder: Kaleb Wong MD Bilirubin [Mass/Vol] 0.6 mg/dL Normal 0.2-1.2 [facility] Comment on above: Order Comment: FASTI NG:YES FASTING: YES Performed By: #### 1 0231 #### [facility] [place] [address] [employer]der: Kaleb Wong MD BUN/CREATININE RATIO NOT APPLICABLE Normal 6-22 [facility] Comment on above: Order Comment: FASTI NG:YES FASTING: YES Performed By: #### 1 0231 #### [facility] [place] [address] [employer] Welder: Kaleb Wong MD Calcium [Mass/Vol] 8.9 mg/dL Normal 8.6-10.3 [facility] Comment on above: Order Comment: FASTI NG:YES FASTING: YES Performed By: #### 1 0231 #### [facility] [place] [address] [employer]der: Kaleb Wong MD Chloride [Moles/Vol] 98 mmol/L Normal 98-110 [facility] Comment on above: Order Comment: FASTI NG:YES FASTING: YES Performed By: #### 1 0231 #### [facility] [place] [address] [employer]der: Kaleb Wong MD CO2 [Moles/Vol] 27 mmol/L Normal 20-32 [facility] Comment on above: Order Comment: FASTI NG:YES FASTING: YES Performed By: #### 1 0231 #### [facility] [place] [address] [employer]: Kaleb Wong MD Creatinine [Mass/Vol] 0.99 mg/dL Normal 0.60-1.[address] [facility] Comment on above: Order Comment: FASTI NG:YES FASTING: YES Performed By: #### 1 0231 #### [facility] [address], [address] [place] [address] [employer]: Kaleb Wong MD GFR/1.73 sq M.predicted among non-blacks MDRD (S/P/Bld) [Vol rate/Area] 96 mL/min/{1.73_m2} Normal > OR = 60 [facility] Comment on above: Order Comment: FASTI NG:YES FASTING: YES Result Comment: The eGFR is based on the CKD-EPI 2020 equation. To calculate the new eGFR from a previous Creatinine or Cystatin C result, go to https://www.kidney.org/professionals/ kdoqi/gfr%5Fcalculator Performed By: #### 1 0231 #### [facility] [address], [address] [place] [address] [employer]der: Kaleb Wong MD Globulin (S) [Mass/Vol] 3.0 g/dL Normal 1.9-3.7 [facility] Comment on above: Order Comment: FASTI NG:YES FASTING: YES Performed By: #### 1 0231 #### [facility] [address], [address] [place] [address] [employer]der: Kaleb Wong MD Glucose [Mass/Vol] 117 mg/dL High 65-99 [facility] Comment on above: Order Comment: FASTI NG:YES FASTING: YES Result Comment: Fasting reference interval For someone without known diabetes, a glucose value between 100 and 125 mg/dL is consistent with prediabetes and should be confirmed with a follow-up test. Performed By: #### 1 0231 #### [facility] [address], [address] [place] [address] [employer] Welder: Kaleb Wong MD Potassium [Moles/Vol] 4.5 mmol/L Normal 3.5-5.3 [facility] Comment on above: Order Comment: FASTI NG:YES FASTING: YES Performed By: #### 1 0231 #### [facility] [address], [address] [place] [address] [employer]der: Kaleb Wong MD Protein [Mass/Vol] 6.9 g/dL Normal 6.1-8.1 [facility] Comment on above: Order Comment: FASTI NG:YES FASTING: YES Performed By: #### 1 0231 #### [facility] [address], [address] [place] [address] [employer]der: Kaleb Wong MD Sodium [Moles/Vol] 135 mmol/L Normal 135-146 [facility] Comment on above: Order Comment: FASTI NG:YES FASTING: YES Performed By: #### 1 0231 #### [facility] [address], [address] [place] [address] [employer]der: Kaleb Wong MD Urea nitrogen [Mass/Vol] 17 mg/dL Normal 7-25 [facility] Comment on above: Order Comment: FASTI NG:YES FASTING: YES Performed By: #### 1 0231 #### [facility] [address], [address] [place] [address] [employer]der: Kaleb Wong MD CBC AUTO DIFFon 01-08-2022 BASO # 0.0 103/ul Normal 0.0-0.1 [facility] Comment on above: Performed By: #### C BC #### [facility] [address] [place] [address] Dr. Pranay Evans Basophils/100 WBC (Bld) 0.6 % Normal 0.2-2.0 [facility] Comment on above: Performed By: #### C BC #### [facility] [address] [place] [address] Dr. Pranay Evans EO # 0.0 103/ul Normal 0.0-0.7 [facility] Comment on above: Performed By: #### C BC #### [facility] [address] [place] [address] [address] Pranay Evans Eosinophils/100 WBC (Bld) 0.2 % Critically low 0.9-7.0 [facility] Comment on above: Performed By: #### C BC #### [facility] [address] [place] [address] Dr. Pranay Evans Erythrocyte distribution width (RBC) [Ratio] 13.4 % Normal 11.0-15.0 [facility] Comment on above: Performed By: #### C BC #### [facility] [address] [place] [address] Dr. Pranay Evans Hematocrit (Bld) [Volume fraction] 42.7 % Normal 42.0-54.0 [facility] Comment on above: Performed By: #### C BC #### [facility] [address] [place] [address] Dr. Pranay Evans Hemoglobin (Bld) [Mass/Vol] 14.9 g/dL Normal 14.0-18.0 [facility] Comment on above: Performed By: #### C BC #### [facility] [address] [place] [address] Dr. Pranay Evans IG # 0.01 10e3/ul Normal 0.00-0.03 [facility] Comment on above: Performed By: #### C BC #### [facility] [address] [place] [address] Dr. Pranay Evans IG % 0.2 % Normal 0.0-0.5 [facility] Comment on above: Performed By: #### C BC #### [facility] [address] [place] [address] Dr. Pranay Evans LYMPH # 1.8 103/ul Normal 1.2-3.8 [facility] Comment on above: Performed By: #### C BC #### [facility] [address] [place] [address] Dr. Pranay Evans Lymphocytes/100 WBC (Bld) 35.0 % Normal 20.5-60.0 [facility] Comment on above: Performed By: #### C BC #### [facility] [address] [place] [address] Dr. Pranay Evans MANUAL DIFF REQ NO Normal [facility] Comment on above: Performed By: #### C BC #### [facility] [address] [place] [address] Dr. Pranay Evans MCH (RBC) [Entitic mass] 35.1 pg Critically high 25.9-34.0 [facility] Comment on above: Performed By: #### C BC #### [facility] [address] [place] [address] [address] Pranay Evans MCHC (RBC) [Mass/Vol] 34.9 g/dL Normal 29.9-35.2 [facility] Comment on above: Performed By: #### C BC #### [facility] [address] [place] [address] [address] Pranay Evans MCV (RBC) [Entitic vol] 100.5 fL Critically high 80.0-94.0 [facility] Comment on above: Performed By: #### C BC #### [facility] [address] [place] [address] [address] Pranay Evans MONO # 0.6 103/ul Normal 0.3-0.8 [facility] Comment on above: Performed By: #### C BC #### [facility] [address] [place] [address] Dr. Pranay Evans Monocytes/100 WBC (Bld) 11.9 % Normal 1.7-12.0 [facility] Comment on above: Performed By: #### C BC #### [facility] [address] [place] [address] Dr. Pranay Evans NEUT # 2.6 103/ul Normal 1.4-6.5 [facility] Comment on above: Performed By: #### C BC #### [facility] [address] [place] [address] Dr. Pranay Evans Neutrophils/100 WBC (Bld) 52.1 % Normal 43.0-75.0 [facility] Comment on above: Performed By: #### C BC #### [facility] [address] [place] [address] [address] Pranay Evans Platelet mean volume (Bld) [Entitic vol] 9.0 fL Critically low 9.5-13.5 [facility] Comment on above: Performed By: #### C BC #### [facility] [address] [place] [address] Dr. Pranay Evans PLT 267 103/ul Normal 150-450 [facility] Comment on above: Performed By: #### C BC #### [facility] [address] [place] [address] [address] Pranay Evans RBC 4.25 106/ul Critically low 4.70-6.10 [facility] Comment on above: Performed By: #### C BC #### [facility] [address] [place] [address] [address] Pranay Evans WBC 5.0 103/ul Normal 4.0-11.0 [facility] Comment on above: Performed By: #### C BC #### [facility] [address] [place] [address] [address] Pranay Evans DEPAKENE/VALPROICon 01-09-20 22 DEPAKENE 8.3 ug/ml Critically low 50.0-100.0 [facility] Comment on above: Performed By: #### B MP, VALP, LIPID, DLDL #### [facility] [address] [place] [address] Dr. Pranay Evans DIRECT LDLon 01-08-2022 Cholesterol in LDL [Mass/Vol] 75 mg/dL Normal [facility] Comment on above: Performed By: #### B MP, VALP, LIPID, DLDL #### [facility] [address] [place] [address] Dr. Pranay Evans DLDL NORMAL SEE BELOW Normal [facility] Comment on above: Result Comment: <100 mg/dl OPTIMAL 100 - 129 mg/dl NEAR OR ABOVE OPTIMAL 130 - 159 mg/dl BORDERLINE HIGH 160 - 189 mg/dl HIGH >190 mg/dl VERY HIGH Performed By: #### B MP, VALP, LIPID, DLDL #### [facility] [address] [place] [address] Dr. Pranay Evans GLYCOHEMOGLOBIN A1Con 2021 ADA RECOMMENDATION SEE BELOW Normal [facility] Comment on above: Result Comment: ADA RECOMMENDED LIMIT 4.0 - 6.0 ADA THERAPEUTIC TARGET < 7.0 ACTION SUGGESTED > 7.0 Performed By: #### A 1C #### [facility] [address] [place] [address] Dr. Pranay Evans Glucose [Mass/Vol] 114 mg/dL Normal [facility] Comment on above: Performed By: #### A 1C #### [facility] [address] [place] [address] [address] Pranay Evans HbA1c (Bld) [Mass fraction] 5.6 % Normal 4.5-6.2 [facility] Comment on above: Performed By: #### A 1C #### [facility] [address] [place] [address] [address] Pranay Evans LIPID PROFILEon 01-08-2022 CHOL-HDL RATIO NORM SEE BELOW Normal [facility] Comment on above: Result Comment: 3.3 - 4.4 LOW RISK 4.4 - 7.1 AVERAGE RISK 7.1 - 11.0 MODERATE RISK >11.0 HIGH RISK Performed By: #### B MP, VALP, LIPID, DLDL #### [facility] [address] [place] [address] [address] Pranay Evans Cholesterol [Mass/Vol] 224 mg/dL Critically high <=200 [facility] Comment on above: Performed By: #### B MP, VALP, LIPID, DLDL #### [facility] [address] [place] [address] [address] Pranay Evans Cholesterol.total/Cho lesterol in HDL [Mass ratio] 4.7 {ratio} Normal [facility] Comment on above: Performed By: #### B MP, VALP, LIPID, DLDL #### [facility] [address] [place] [address] [address] Pranay Evans HDL NORMAL > or = 60 mg/dl - LO W CARDIOVASCULAR RISK <40 mg/dl - HIGH CARDIOVASCULAR RISK Normal [facility] Comment on above: Performed By: #### B MP, VALP, LIPID, DLDL #### [facility] [address] [place] [address] [address] Pranay Evans LDL CALC NORMAL SEE BELOW Normal [facility] Comment on above: Result Comment: <100 mg/dl OPTIMAL 100 - 129 mg/dl NEAR OR ABOVE OPTIMAL 130 - 159 mg/dl BORDERLINE HIGH 160 - 189 mg/dl HIGH >190 mg/dl VERY HIGH Performed By: #### B MP, VALP, LIPID, DLDL #### [facility] [address] [place] [address] [address] Pranay Evans Triglyceride [Mass/Vol] 622 mg/dL Critically high <=150 [facility] Comment on above: Performed By: #### B MP, VALP, LIPID, DLDL #### [facility] [address] [place] [address] [address] Pranay Evans VLDL CALC 124.4 mg/dL Normal [facility] Comment on above: Performed By: #### B MP, VALP, LIPID, DLDL #### [facility] [address] [place] [address] Dr. Pranay Evans PROF CHEM 8 (BAS METB)on Anion gap [Moles/Vol] 11.2 mmol/L Normal [facility] Comment on above: Performed By: #### B MP, VALP, LIPID, DLDL #### [facility] [address] [place] [address] Dr. Pranay Evans Calcium [Mass/Vol] 8.4 mg/dL Critically low 8.5-10.1 [facility] Comment on above: Performed By: #### B MP, VALP, LIPID, DLDL #### [facility] [address] [place] [address] Dr. Pranay Evans Chloride [Moles/Vol] 98 mmol/L Normal 98-107 [facility] Comment on above: Performed By: #### B MP, VALP, LIPID, DLDL #### [facility] [address] [place] [address] Dr. Pranay Evans CO2 [Moles/Vol] 26.0 mmol/L Normal 21.0-32.0 [facility] Comment on above: Performed By: #### B MP, VALP, LIPID, DLDL #### [facility] [address] [place] [address] Dr. Pranay Evans Creatinine [Mass/Vol] 0.97 mg/dL Normal 0.70-1.30 [facility] Comment on above: Performed By: #### B MP, VALP, LIPID, DLDL #### [facility] [address] [place] [address] [address] Pranay Evans EGFR-AF LEBANESE >60 Normal >=60 [facility] Comment on above: Performed By: #### B MP, VALP, LIPID, DLDL #### [facility] [address] [place] [address] [address] Pranay Evans EGFR-NON AF LEBANESE >60 Normal >=60 [facility] Comment on above: Performed By: #### B MP, VALP, LIPID, DLDL #### [facility] [address] [place] [address] [address] Pranay Evans Glucose [Mass/Vol] 107 mg/dL Critically high 74-106 [facility] Comment on above: Performed By: #### B MP, VALP, LIPID, DLDL #### [facility] [address] [place] [address] Dr. Pranay Evans Potassium [Moles/Vol] 4.2 mmol/L Normal 3.5-5.1 [facility] Comment on above: Performed By: #### B MP, VALP, LIPID, DLDL #### [facility] [address] [place] [address] [address] Pranay Evans Sodium [Moles/Vol] 131 mmol/L Critically low 136-145 [facility] Comment on above: Performed By: #### B MP, VALP, LIPID, DLDL #### [facility] [address] [place] [address] [address] Pranay Evans Urea nitrogen [Mass/Vol] 17.0 mg/dL Normal 7.0-18.0 [facility] Comment on above: Performed By: #### B MP, VALP, LIPID, DLDL #### [facility] [address] [place] [address] [address] Pranay Evans Urea nitrogen/Creatinine [Mass ratio] 17.5 mg/mg Normal [facility] Comment on above: Performed By: #### B MP, VALP, LIPID, DLDL #### [facility] [address] [place] [address] [address] Pranay Evans CBC (INCLUDES DIFF/PLT)on Basophils (Bld) [#/Vol] 0.05 10*3/uL Normal 0-200 [facility] Comment on above: Order Comment: FASTI NG:UNKNOWN FASTING: UNKNOWN Performed By: #### 6 399 #### [facility] of [address], [address] [place] [address] Electric [employer] Welder: Kaleb Wong MD Basophils/100 WBC (Bld) 0.8 % Normal [facility] Comment on above: Order Comment: FASTI NG:UNKNOWN FASTING: UNKNOWN Performed By: #### 6 399 #### [facility] [place] [address] [employer] Welder: Kaleb Wong MD Eosinophils (Bld) [#/Vol] 0.019 10*3/uL Normal 15-500 [facility] Comment on above: Order Comment: FASTI NG:UNKNOWN FASTING: UNKNOWN Performed By: #### 6 399 #### [facility] [place] [address] [employer] Welder: Kaleb Wong MD Eosinophils/100 WBC (Bld) 0.3 % Normal [facility] Comment on above: Order Comment: FASTI NG:UNKNOWN FASTING: UNKNOWN Performed By: #### 6 399 #### [facility] [place] [address] [employer] Welder: Kaleb Wong MD Erythrocyte distribution width (RBC) [Ratio] 13.2 % Normal 11.0-15.0 [facility] Comment on above: Order Comment: FASTI NG:UNKNOWN FASTING: UNKNOWN Performed By: #### 6 399 #### [facility] of [place] [address] Electric [employer] Welder: Kaleb Wong MD Hematocrit (Bld) [Volume fraction] 47.1 % Normal 38.5-50.0 [facility] Comment on above: Order Comment: FASTI NG:UNKNOWN FASTING: UNKNOWN Performed By: #### 6 399 #### [facility] of [place] [address] Electric [employer] Welder: Kaleb Wong MD Hemoglobin (Bld) [Mass/Vol] 16.6 g/dL Normal 13.2-17.1 [facility] Comment on above: Order Comment: FASTI NG:UNKNOWN FASTING: UNKNOWN Performed By: #### 6 399 #### [facility] of [place] [address] [employer] Welder: Kaleb Wong MD Lymphocytes (Bld) [#/Vol] 1.777 10*3/uL Normal 850-3900 [facility] Comment on above: Order Comment: FASTI NG:UNKNOWN FASTING: UNKNOWN Performed By: #### 6 399 #### [facility] [address], [address] [place] [address] Electric Arc Welder: Kaleb Wong MD Lymphocytes/100 WBC (Bld) 28.2 % Normal [facility] Comment on above: Order Comment: FASTI NG:UNKNOWN FASTING: UNKNOWN Performed By: #### 6 399 #### [facility] [place] [address] Electric [employer] Welder: Kaleb Wong MD MCH (RBC) [Entitic mass] 34.3 pg High 27.0-33.0 [facility] Comment on above: Order Comment: FASTI NG:UNKNOWN FASTING: UNKNOWN Performed By: #### 6 399 #### [facility] [place] [address] Electric [employer] Welder: Kaleb Wong MD MCHC (RBC) [Mass/Vol] 35.2 g/dL Normal 32.0-36.[address] [facility] Comment on above: Order Comment: FASTI NG:UNKNOWN FASTING: UNKNOWN Performed By: #### 6 399 #### [facility] [address], [address] [place] [address] Electric Arc Welder: Kaleb Wong MD MCV (RBC) [Entitic vol] 97.3 fL Normal 80.0-100.0 [facility] Comment on above: Order Comment: FASTI NG:UNKNOWN FASTING: UNKNOWN Performed By: #### 6 399 #### [facility] [place] [address] Electric [employer] Welder: Kaleb Wong MD Monocytes (Bld) [#/Vol] 0.655 10*3/uL Normal 200-950 [facility] Comment on above: Order Comment: FASTI NG:UNKNOWN FASTING: UNKNOWN Performed By: #### 6 399 #### [facility] [address], [address] [place] [address] Electric Arc Welder: Kaleb Wong MD Monocytes/100 WBC (Bld) 10.4 % Normal [facility] Comment on above: Order Comment: FASTI NG:UNKNOWN FASTING: UNKNOWN Performed By: #### 6 399 #### [facility] [address], [address] [place] [address] Electric Arc Welder: Kaleb Wong MD Neutrophils (Bld) [#/Vol] 3.799 10*3/uL Normal 9747-0195 [facility] Comment on above: Order Comment: FASTI NG:UNKNOWN FASTING: UNKNOWN Performed By: #### 6 399 #### [facility] of [address], [address] [place] [address] Electric Arc Welder: Kaleb Wong MD Neutrophils/100 WBC (Bld) 60.3 % Normal [facility] Comment on above: Order Comment: FASTI NG:UNKNOWN FASTING: UNKNOWN Performed By: #### 6 399 #### [facility] [address], [address] [place] [address] Electric Arc Welder: Kaleb Wong MD Platelet mean volume (Bld) [Entitic vol] 10.2 fL Normal 7.5-12.5 [facility] Comment on above: Order Comment: FASTI NG:UNKNOWN FASTING: UNKNOWN Performed By: #### 6 399 #### [facility] [address], [address] [place] [address] Electric Arc Welder: Kaleb Wong MD Platelets (Bld) [#/Vol] 290 10*3/uL Normal 140-400 [facility] Comment on above: Order Comment: FASTI NG:UNKNOWN FASTING: UNKNOWN Performed By: #### 6 399 #### [facility] [address], [address] [place] [address] Electric Arc Welder: Kaleb Wong MD RBC (Bld) [#/Vol] 4.84 10*6/uL Normal 4.20-5.80 [facility] Comment on above: Order Comment: FASTI NG:UNKNOWN FASTING: UNKNOWN Performed By: #### 6 399 #### [facility] [address], [address] [place] [address] Electric Arc Welder: Kaleb Wong MD WBC (Bld) [#/Vol] 6.3 10*3/uL Normal 3.8-10.8 [facility] Comment on above: Order Comment: FASTI NG:UNKNOWN FASTING: UNKNOWN Performed By: #### 6 399 #### [facility] [address] [place] [address], [address] [place] [address] Electric Arc Welder: Kaleb Wong MD DEPAKENE/VALPROICon 05-23-20 21 DEPAKENE 24.6 ug/ml Critically low 50.0-100.0 [facility] Comment on above: Performed By: #### V ALP #### [facility] [address] [place] [address] [address] Pranay Evans Culture Blood #1on 9 Culture NO GROWTH 6 DAYS [place] Special Requests R AC 20MLS [place] Specimen Description .BLOOD [place] Hemoglobin A1con 05-17-2019 Glucose [Mass/Vol] 105 mg/dL [place], [place] Comment on above: The ADA and AACC rec ommend providing the estimated average glucose result to permit better patient understanding of their HBA1c result. HbA1c (Bld) [Mass fraction] 5.3 % 4 - 6 % [place] Comp Metabolic Profon 2018 Albumin [Mass/Vol] 3.6 g/dL 3.5 - 5.2 g/dL [place] Albumin/Globulin [Mass ratio] NOT REPORTED [place] ALP [Catalytic activity/Vol] 71 U/L 40 - 129 U/L [place] ALT [Catalytic activity/Vol] 41 U/L 5 - 41 U/L [place] Anion gap [Moles/Vol] 11 mmol/L 9 - 17 mmol/L [place] AST [Catalytic activity/Vol] 59 U/L High <40 [place] Bilirubin Ql (U) 0.59 mg/dL 0.3 - 1.2 mg/dL [place] Bun/Cre Ratio NOT REPORTED [place] Calcium [Mass/Vol] 9.3 mg/dL 8.6 - 10. 4 mg/dL [place] Chloride [Moles/Vol] 101 mmol/L 98 - 10 7 mmol/L [place] CO2 [Moles/Vol] 25 mmol/L 20 - 31 mmol/L [place] Creatinine [Mass/Vol] 0.89 mg/dL 0.7 - 1.2 mg/dL [place] GFR >60 >60 mL/min [place] GFR Non- >60 >60 mL/min [place] GFR/1.73 sq M predicted among non-blacks MDRD (S/P/Bld) [Vol rate/Area] [place], [place] Comment on above: Average GFR for 40-4 9 years old: 99 mL/min/1.73sq m Chronic Kidney Disease: <60 mL/min/1.73sq m Kidney failure: <15 mL/min/1.73sq m eGFR calculated using average adult body mass. Additional eGFR calculator available at: http://www.[employer]/multiple_crcl_2012.htm GFR/1.73 sq M predicted among non-blacks MDRD (S/P/Bld) [Vol rate/Area] NOT REPORTED [place] Glucose [Mass/Vol] 100 mg/dL High 70 - 99 mg/dL [place] Potassium [Moles/Vol] 3.8 mmol/L 3.7 - 5.3 mmol/L [place] Protein [Mass/Vol] 6.6 g/dL 6.4 - 8.3 g/dL [place] Sodium [Moles/Vol] 137 mmol/L 135 - 144 mmol/L [place] Urea nitrogen [Mass/Vol] 10 mg/dL 6 - 20 mg/dL [place] Lipid panel - fastingon 05-03 Cholesterol [Mass/Vol] 188 mg/dL <200 [place] Comment on above: Cholesterol Guidelines: <200 Desirable 200-240 Borderline >240 Undesirable Cholesterol in HDL [Mass/Vol] 28 mg/dL Low >40 [place] Comment on above: HDL Guidelines: <40 Undesirable 40-59 Borderline >59 Desirable Cholesterol in LDL [Mass/Vol] 120 mg/dL 0 - 130 mg/dL [place] Comment on above: LDL Guidelines: <100 Desirable 100-129 Near to/above Desirable 130-159 Borderline >159 Undesirable Direct (measured) LDL and calculated LDL are not interchangeable tests. Cholesterol in VLDL [Mass/Vol] NOT REPORTED High 1 - 30 mg/dL [place] Cholesterol.total/Cho lesterol in HDL [Mass ratio] 6.7 {ratio} High <5 [place] Triglyceride [Mass/Vol] 199 mg/dL High <150 [place] Comment on above: Triglyceride Guidelines: <150 Desirable 150-199 Borderline 200-499 High >499 Very high Based on AHA Guidelines for fasting triglyceride, June 2012. Otheron 05-16-2019 Interpretation and review of laboratory results Abnormal [place] T4, freeon 05-16-2019 Thyroxine, Free 1.46 ng/dL 0.93 - 1.7 ng/dL [place] TSH without Reflexon 019 TSH Qn 2.20 m[IU]/L [place] Valproic acid level, totalon 05-16-2019 Valproic Acid Lvl 54 ug/mL 50 - 125 ug/mL [place] Valproic Date last dose [id number] [place] Valproic Dose amount 250mg [place] Valproic Time last dose 0 [place] Hematologyon 05-15-2019 Basophils (Bld) [#/Vol] 0.07 10*3/uL [place] Basophils/100 WBC (Bld) 1 % 0 - 2 % [place] Eosinophils (Bld) [#/Vol] 0.24 10*3/uL [place] Eosinophils/100 WBC (Bld) 3 % 1 - 4 % [place] Hematocrit (Bld) [Volume fraction] 39.4 % Low 40.7 - 50.3 % [place] Hemoglobin (Bld) [Mass/Vol] 13.1 g/dL 13 - 17 g/dL [place] Lymphocytes (Bld) [#/Vol] 1.77 10*3/uL [place] Lymphocytes/100 WBC (Bld) 19 % Low 24 - 43 % [place] MCH (RBC) [Entitic mass] 33.2 pg 25.2 - 33.5 pg [place] MCV (RBC) [Entitic vol] 100.0 fL 82.6 - 102.9 fL [place] Monocytes (Bld) [#/Vol] 0.65 10*3/uL [place] Monocytes/100 WBC (Bld) 7 % 3 - 12 % [place] Platelets (Bld) [#/Vol] NOT REPORTED [place] Platelets (Bld) [#/Vol] 207 10*3/uL [place] RBC (Bld) [#/Vol] 3.94 10*6/uL Low 4.21 - 5.7 7 m/uL [place] RBC morphology finding Nom (Bld) NOT REPORTED [place] WBC (Bld) [#/Vol] 0.0 10*3/uL 0.0 per 10 0 WBC [place] WBC (Bld) [#/Vol] 9.2 10*3/uL [place] Metabolic Panelon 05-15-2019 Magnesium [Mass/Vol] 2.1 mg/dL 1.6 - 2 .6 mg/dL [place] Albumin [Mass/Vol] 3.2 g/dL Low 3.5 - 5.2 g/dL [place] ALP [Catalytic activity/Vol] 61 U/L 40 - 129 U/L [place] ALT [Catalytic activity/Vol] 39 U/L 5 - 41 U/L [place] Anion gap [Moles/Vol] 12 mmol/L 9 - 17 mmol/L [place] AST [Catalytic activity/Vol] 61 U/L High <40 [place] Calcium [Mass/Vol] 8.5 mg/dL Low 8.6 - 10. 4 mg/dL [place] Chloride [Moles/Vol] 101 mmol/L 98 - 10 7 mmol/L [place] CO2 [Moles/Vol] 24 mmol/L 20 - 31 mmol/L [place] Creatinine [Mass/Vol] 0.62 mg/dL Low 0.7 - 1.2 mg/dL [place] GFR/1.73 sq M predicted among non-blacks MDRD (S/P/Bld) [Vol rate/Area] NOT REPORTED [place] GFR/1.73 sq M predicted among non-blacks MDRD (S/P/Bld) [Vol rate/Area] [place] Comment on above: Average GFR for 40-4 9 years old: 99 mL/min/1.73sq m Chronic Kidney Disease: <60 mL/min/1.73sq m Kidney failure: <15 mL/min/1.73sq m eGFR calculated using average adult body mass. Additional eGFR calculator available at: http://www.[employer]/multiple_crcl_2012.htm Glucose [Mass/Vol] 103 mg/dL High 70 - 99 mg/dL [place] Potassium [Moles/Vol] 3.5 mmol/L Low 3.7 - 5.3 mmol/L [place] Protein [Mass/Vol] 6.2 g/dL Low 6.4 - 8.3 g/dL [place] Sodium [Moles/Vol] 137 mmol/L 135 - 144 mmol/L [place] Urea nitrogen [Mass/Vol] 5 mg/dL Low 6 - 20 mg/dL [place] Otheron 05-15-2019 Interpretation and review of laboratory results Abnormal [place], [place] Total CK 2301 U/L High 39 - 308 U/L [place] Albumin/Globulin [Mass ratio] 1.1 {ratio} [place] Bilirubin Ql (U) 0.58 mg/dL 0.3 - 1.2 mg/dL [place] Bun/Cre Ratio NOT REPORTED [place] GFR >60 >60 mL/min [place] GFR Non- >60 >60 mL/min [place] Interpretation and review of laboratory results Abnormal [place] Differential Type NOT REPORTED [place] Erythrocyte distribution width (RBC) [Ratio] 12.7 % 11.8 - 14.4 % [place] Immature granulocytes (Bld) [#/Vol] 0 % 0 [place] Immature granulocytes (Bld) [#/Vol] 0.04 10*3/uL [place] Interpretation and review of laboratory results Abnormal [place] MCHC (RBC) [Mass/Vol] 33.2 g/dL 28.4 - 34.8 g/dL [place] Platelet mean volume (Bld) [Entitic vol] 10.2 fL 8.1 - 13.5 fL [place] Segmented neutrophils/100 WBC (Bld) 70 % High 36 - 65 % [place] Segs Absolute 6.43 [place], [place] WBC Morphology NOT REPORTED [place] CBC auto differentialon 05-03 Basophils (Bld) [#/Vol] 0.04 10*3/uL [place] Basophils/100 WBC (Bld) 0 % 0 - 2 % [place] Differential Type NOT REPORTED [place] Eosinophils (Bld) [#/Vol] 0.10 10*3/uL [place] Eosinophils/100 WBC (Bld) 1 % 1 - 4 % [place] Erythrocyte distribution width (RBC) [Ratio] 12.9 % 11.8 - 14.4 % [place] Hematocrit (Bld) [Volume fraction] 38.7 % Low 40.7 - 50.3 % [place] Hemoglobin (Bld) [Mass/Vol] 12.9 g/dL Low 13 - 17 g/dL [place] Immature granulocytes (Bld) [#/Vol] 0.04 10*3/uL [place] Immature granulocytes (Bld) [#/Vol] 0 % 0 [place] Interpretation and review of laboratory results Abnormal [place] Lymphocytes (Bld) [#/Vol] 2.14 10*3/uL [place] Lymphocytes/100 WBC (Bld) 20 % Low 24 - 43 % [place] MCH (RBC) [Entitic mass] 33.9 pg High 25.2 - 33.5 pg [place] MCHC (RBC) [Mass/Vol] 33.3 g/dL 28.4 - 34.8 g/dL [place] MCV (RBC) [Entitic vol] 101.6 fL 82.6 - 102.9 fL [place] Monocytes (Bld) [#/Vol] 0.74 10*3/uL [place] Monocytes/100 WBC (Bld) 7 % 3 - 12 % [place] Platelet mean volume (Bld) [Entitic vol] 10.1 fL 8.1 - 13.5 fL [place] Platelets (Bld) [#/Vol] 195 10*3/uL [place] Platelets (Bld) [#/Vol] NOT REPORTED [place] RBC (Bld) [#/Vol] 3.81 10*6/uL Low 4.21 - 5.7 7 m/uL [place] RBC morphology finding Nom (Bld) NOT REPORTED [place] Segmented neutrophils/100 WBC (Bld) 71 % High 36 - 65 % [place] Segs Absolute 7.64 [place] WBC (Bld) [#/Vol] 10.7 10*3/uL [place] WBC (Bld) [#/Vol] 0.0 10*3/uL 0.0 per 10 0 WBC [place] WBC Morphology NOT REPORTED [place] CKon 05-14-2019 Total CK 3458 U/L High 39 - 308 U/L [place] Comprehensive Metabolic Pane l w/ Reflex to MGon 05-14-2019 Albumin [Mass/Vol] 2.8 g/dL Low 3.5 - 5.2 g/dL [place] Albumin/Globulin [Mass ratio] 0.9 {ratio} Low [place] ALP [Catalytic activity/Vol] 67 U/L 40 - 129 U/L [place] ALT [Catalytic activity/Vol] 41 U/L 5 - 41 U/L [place] Anion gap [Moles/Vol] 10 mmol/L 9 - 17 mmol/L [place] AST [Catalytic activity/Vol] 68 U/L High <40 [place] Bilirubin Ql (U) 0.54 mg/dL 0.3 - 1.2 mg/dL [place] Bun/Cre Ratio NOT REPORTED [place] Calcium [Mass/Vol] 7.9 mg/dL Low 8.6 - 10. 4 mg/dL [place] Chloride [Moles/Vol] 106 mmol/L 98 - 10 7 mmol/L [place] CO2 [Moles/Vol] 24 mmol/L 20 - 31 mmol/L [place] Creatinine [Mass/Vol] 0.79 mg/dL 0.7 - 1.2 mg/dL [place] GFR >60 >60 mL/min [place] GFR Non- >60 >60 mL/min [place] GFR/1.73 sq M predicted among non-blacks MDRD (S/P/Bld) [Vol rate/Area] NOT REPORTED [place] GFR/1.73 sq M predicted among non-blacks MDRD (S/P/Bld) [Vol rate/Area] [place] Comment on above: Average GFR for 40-4 9 years old: 99 mL/min/1.73sq m Chronic Kidney Disease: <60 mL/min/1.73sq m Kidney failure: <15 mL/min/1.73sq m eGFR calculated using average adult body mass. Additional eGFR calculator available at: http://www.[employer]/multiple_crcl_2012.htm Glucose [Mass/Vol] 106 mg/dL High 70 - 99 mg/dL [place] Potassium [Moles/Vol] 3.7 mmol/L 3.7 - 5.3 mmol/L [place] Protein [Mass/Vol] 5.8 g/dL Low 6.4 - 8.3 g/dL [place] Sodium [Moles/Vol] 140 mmol/L 135 - 144 mmol/L [place] Urea nitrogen [Mass/Vol] 10 mg/dL 6 - 20 mg/dL [place] Otheron 05-14-2019 Reginaldo, pn Incoming Radiant Results From [employer] - 05/14/2019 4:03 PM EDT EXAMINATION: MRI [...] small ischemic disease, less likely vasculitis/demyelinating process. [place] Negative for stroke, midline shift or mass effect. Few scattered foci of nonspecific T2 prolongation identified within periventricular subcortical white matter. Findings can be seen in setting of acute underlying headache syndrome, developing chronic small ischemic disease, less likely vasculitis/demyelinating process. [place] EXAMINATION: MRI OF THE BRAIN WITHOUT [...] The soft tissues demonstrate no acute abnormality. [place] Culture NORMAL RESPIRATORY F ANAND LIGHT GROWTH [place] Direct Exam Negative Abnormal [place] Direct Exam < 10 EPITHELIAL CELLS/LPF [place] Direct Exam Positive Abnormal [place] Direct Exam >25 NEUTROPHILS/LPF [place] Interpretation and review of laboratory results Abnormal [place] Special Requests NOT REPORTED [place] Specimen Description .INDUCED SPUTUM [place] Interpretation and review of laboratory results Abnormal [place] Blood Gason 05-13-2019 Oxygen saturation in Blood 98 % 94 - 98 % [place] CBC auto differentialon 05-03 Basophils (Bld) [#/Vol] 0.07 10*3/uL [place] Basophils/100 WBC (Bld) 0 % 0 - 2 % [place] Differential Type NOT REPORTED [place] Eosinophils (Bld) [#/Vol] 10*3/uL [place] Eosinophils/100 WBC (Bld) 0 % Low 1 - 4 % [place] Erythrocyte distribution width (RBC) [Ratio] 13.1 % 11.8 - 14.4 % [place] Hematocrit (Bld) [Volume fraction] 42.6 % 40.7 - 50.3 % [place] Hemoglobin (Bld) [Mass/Vol] 14.1 g/dL 13 - 17 g/dL [place] Immature granulocytes (Bld) [#/Vol] 0 % 0 [place] Immature granulocytes (Bld) [#/Vol] 0.07 10*3/uL [place] Interpretation and review of laboratory results Abnormal [place] Lymphocytes (Bld) [#/Vol] 1.51 10*3/uL [place] Lymphocytes/100 WBC (Bld) 9 % Low 24 - 43 % [place] MCH (RBC) [Entitic mass] 33.8 pg High 25.2 - 33.5 pg [place] MCHC (RBC) [Mass/Vol] 33.1 g/dL 28.4 - 34.8 g/dL [place] MCV (RBC) [Entitic vol] 102.2 fL 82.6 - 102.9 fL [place] Monocytes (Bld) [#/Vol] 0.78 10*3/uL [place] Monocytes/100 WBC (Bld) 5 % 3 - 12 % [place] Platelet mean volume (Bld) [Entitic vol] 10.1 fL 8.1 - 13.5 fL [place] Platelets (Bld) [#/Vol] NOT REPORTED [place] Platelets (Bld) [#/Vol] 214 10*3/uL [place] RBC (Bld) [#/Vol] 4.17 10*6/uL Low 4.21 - 5.7 7 m/uL [place] RBC morphology finding Nom (Bld) NOT REPORTED [place] Segmented neutrophils/100 WBC (Bld) 86 % High 36 - 65 % [place] Segs Absolute 14.39 High [place], [place] WBC (Bld) [#/Vol] 0.0 10*3/uL 0.0 per 10 0 WBC [place] WBC (Bld) [#/Vol] 16.8 10*3/uL [place] WBC Morphology NOT REPORTED [place] CKon 05-13-2019 Interpretation and review of laboratory results Abnormal [place], KY Total CK 6913 U/L High 39 - 308 U/L [place] [facility]acon 05-13-2019 Myoglobin [Mass/Vol] 605 ng/mL High 28 - 72 ng/mL [place] CRP [Mass/Vol] 97.5 mg/L High 0 - 5 mg/L [place] Comprehensive Metabolic Pane l w/ Reflex to MGon 05-13-2019 Albumin [Mass/Vol] 3.3 g/dL Low 3.5 - 5.2 g/dL [place] Albumin/Globulin [Mass ratio] 1.1 {ratio} [place] ALP [Catalytic activity/Vol] 70 U/L 40 - 129 U/L [place] ALT [Catalytic activity/Vol] 52 U/L High 5 - 41 U/L [place] Anion gap [Moles/Vol] 13 mmol/L 9 - 17 mmol/L [place] AST [Catalytic activity/Vol] 89 U/L High <40 [place] Bilirubin Ql (U) 0.62 mg/dL 0.3 - 1.2 mg/dL [place] Bun/Cre Ratio NOT REPORTED [facility] [place] Calcium [Mass/Vol] 7.9 mg/dL Low 8.6 - 10. 4 mg/dL [place] Chloride [Moles/Vol] 104 mmol/L 98 - 10 7 mmol/L [place] CO2 [Moles/Vol] 22 mmol/L 20 - 31 mmol/L [place] Creatinine [Mass/Vol] 1.02 mg/dL 0.7 - 1.2 mg/dL [place] GFR >60 >60 mL/min [place] GFR Non- >60 >60 mL/min [place] GFR/1.73 sq M predicted among non-blacks MDRD (S/P/Bld) [Vol rate/Area] NOT REPORTED [place] GFR/1.73 sq M predicted among non-blacks MDRD (S/P/Bld) [Vol rate/Area] [place] Comment on above: Average GFR for 40-4 9 years old: 99 mL/min/1.73sq m Chronic Kidney Disease: <60 mL/min/1.73sq m Kidney failure: <15 mL/min/1.73sq m eGFR calculated using average adult body mass. Additional eGFR calculator available at: http://www.[employer]/multiple_crcl_2011.htm Glucose [Mass/Vol] 134 mg/dL High 70 - 99 mg/dL [place] Potassium [Moles/Vol] 4.3 mmol/L 3.7 - 5.3 mmol/L [place] Protein [Mass/Vol] 6.2 g/dL Low 6.4 - 8.3 g/dL [place] Sodium [Moles/Vol] 139 mmol/L 135 - 144 mmol/L [place] Urea nitrogen [Mass/Vol] 15 mg/dL 6 - 20 mg/dL [place] Hematologyon 05-13-2019 aPTT Coag (Bld) [Time] NOT REPORTED [place] Metabolic Panelon 05-13-2019 Glucose [Mass/Vol] 142 mg/dL High 74 - 100 mg/dL [place], [place] Otheron 05-13-2019 Atrial Rate 125 BPM [place], KY P Henderson 58 degrees [place] P-R Interval 138 ms [place] Q-T Interval 312 ms [place] QRS Duration 80 ms [place] QTc Calculation (Bazett) 450 ms [place], [place] R [place] 65 degrees [place], KY T [place] 63 degrees [place] Ventricular Rate 125 BPM [place] Reginaldo, Mhpn Incoming E kg Results From [employer] - 05/13/2019 10:21 PM EDT Sinus tachycardia Otherwise normal ECG No previous ECGs available [place] Sinus tachycardia Otherwise normal ECG No previous ECGs available [place] MRSA, DNA, Nasal NEGATIVE: MRSA DNA n ot detected by nucleic acid amplification. NEGATIVE: MRSA DNA not detected by nucleic acid amplificati [place] Comment on above: Results should be used as an adjunct to nosocomial control efforts to identify patients needing enhanced precautions. The test is not intended to identify patients with staphylococcal infections. Results should not be used to guide or monitor treatment for MRSA infections. Specimen Description .NASAL SWAB [place] Interpretation and review of laboratory results Abnormal [place] Korey Test Positive [place] KY FIO2 30.0 [place] Interpretation and review of laboratory results Abnormal [place] Mode PRVC [place] Negative Base Excess, Art NOT REPORTED [place] O2 Device/Flow/% Adult Ventilator Me [place] POC HCO3 26.1 mmol/L 21 - 28 mmol/L [place] POC pCO2 37.4 [place] POC pCO2 Temp NOT REPORTED mm Hg [facility] [place] POC pH 7.452 High [place] POC pH Temp NOT REPORTED [facility] [place] POC PO2 92.8 [place] POC pO2 Temp NOT REPORTED mm Hg [place] Positive Base Excess, Art 2 [place] Sample Site Right Radial Artery [place] TCO2 (calc), Art 27 mmol/L 22 - 29 mmol/L [place] No acute abnormality of the cervical spine. [place] EXAMINATION: CT OF T HE CERVICAL [...] soft tissue swelling. Endotracheal and enteric tubes. [place] Reginaldo, Mhpn Incoming Radiant Results From [employer] - 05/13/2019 4:09 AM EDT EXAMINATION: CT [...] No acute abnormality of the cervical spine. [place] Interpretation and review of laboratory results Abnormal [place] Lactic Acid, Sepsis NOT REPORTED 0.5 - 1. 9 mmol/L [place] Lactic Acid, Sepsis, Whole Blood 1.9 mmol/L 0.5 - 1.9 mmol/L [place] Arterial Blood Gas, POCon Korey Test NOT REPORTED [place] aPTT Coag (Bld) [Time] NOT REPORTED [place] KY FIO2 50.0 [place] Interpretation and review of laboratory results Abnormal [place] Mode PRVC [place] Negative Base Excess, Art 4 High [place] O2 Device/Flow/% Adult Ventilator Me [place] Oxygen saturation in Blood 97 % 94 - 98 % [place] POC HCO3 20.4 mmol/L Low 21 - 28 mmol/L [place] POC pCO2 34.0 Low [place] POC pCO2 Temp NOT REPORTED mm Hg [place] POC pH 7.386 [place] POC pH Temp NOT REPORTED [place], [place] POC PO2 90.1 [place] POC pO2 Temp NOT REPORTED mm Hg [place] Positive Base Excess, Art NOT REPORTED [place] Sample Site Left Radial Artery [place] TCO2 (calc), Art 22 mmol/L 22 - 29 mmol/L [place] CBC WITH AUTO DIFFERENTIALon 05-12-2019 Basophils (Bld) [#/Vol] 0.05 10*3/uL [place] Basophils/100 WBC (Bld) 0 % 0 - 2 % [place] Differential Type NOT REPORTED [place] Eosinophils (Bld) [#/Vol] 0.10 10*3/uL [place] Eosinophils/100 WBC (Bld) 1 % 1 - 4 % [place] Erythrocyte distribution width (RBC) [Ratio] 12.9 % 11.8 - 14.4 % [place] Hematocrit (Bld) [Volume fraction] 46.0 % 40.7 - 50.3 % [place] Hemoglobin (Bld) [Mass/Vol] 15.4 g/dL 13 - 17 g/dL [place] Immature granulocytes (Bld) [#/Vol] 0.05 10*3/uL [place] Immature granulocytes (Bld) [#/Vol] 0 % 0 [place] Interpretation and review of laboratory results Abnormal [place] Lymphocytes (Bld) [#/Vol] 1.18 10*3/uL [place] Lymphocytes/100 WBC (Bld) 7 % Low 24 - 43 % [place] MCH (RBC) [Entitic mass] 33.8 pg High 25.2 - 33.5 pg [place] MCHC (RBC) [Mass/Vol] 33.5 g/dL 28.4 - 34.8 g/dL [place] MCV (RBC) [Entitic vol] 100.9 fL 82.6 - 102.9 fL [place] Monocytes (Bld) [#/Vol] 0.58 10*3/uL [place] Monocytes/100 WBC (Bld) 4 % 3 - 12 % [place] Platelet mean volume (Bld) [Entitic vol] 9.9 fL 8.1 - 13.5 fL [place] Platelets (Bld) [#/Vol] NOT REPORTED [place] Platelets (Bld) [#/Vol] 235 10*3/uL [place] RBC (Bld) [#/Vol] 4.56 10*6/uL 4.21 - 5.7 7 m/uL [place] RBC morphology finding Nom (Bld) NOT REPORTED [place] Segmented neutrophils/100 WBC (Bld) 88 % High 36 - 65 % [place] Segs Absolute 14.55 High [place] WBC (Bld) [#/Vol] 16.5 10*3/uL [place] WBC (Bld) [#/Vol] 0.0 10*3/uL 0.0 per 10 0 WBC [place] WBC Morphology NOT REPORTED [place] CKon 05-12-2019 Interpretation and review of laboratory results Abnormal [place] [address] U/L High 39 - 308 U/L [place] Comprehensive Metabolic Pane jordan 05-12-2019 Albumin [Mass/Vol] 3.8 g/dL 3.5 - 5.2 g/dL [place] Albumin/Globulin [Mass ratio] 1.2 {ratio} [place] ALP [Catalytic activity/Vol] 81 U/L 40 - 129 U/L [place] ALT [Catalytic activity/Vol] 61 U/L High 5 - 41 U/L [place] Anion gap [Moles/Vol] 15 mmol/L 9 - 17 mmol/L [place] AST [Catalytic activity/Vol] 121 U/L High <40 [place] Bilirubin Ql (U) 0.77 mg/dL 0.3 - 1.2 mg/dL [place] Bun/Cre Ratio NOT REPORTED [place] Calcium [Mass/Vol] 8.3 mg/dL Low 8.6 - 10. 4 mg/dL [place] Chloride [Moles/Vol] 103 mmol/L 98 - 10 7 mmol/L [place] CO2 [Moles/Vol] 23 mmol/L 20 - 31 mmol/L [place] Creatinine [Mass/Vol] 1.13 mg/dL 0.7 - 1.2 mg/dL [place] GFR >60 >60 mL/min [place] GFR Non- >60 >60 mL/min [place] GFR/1.73 sq M predicted among non-blacks MDRD (S/P/Bld) [Vol rate/Area] NOT REPORTED [place] GFR/1.73 sq M predicted among non-blacks MDRD (S/P/Bld) [Vol rate/Area] [place] Comment on above: Average GFR for 40-4 9 years old: 99 mL/min/1.73sq m Chronic Kidney Disease: <60 mL/min/1.73sq m Kidney failure: <15 mL/min/1.73sq m eGFR calculated using average adult body mass. Additional eGFR calculator available at: http://www.[employer]/multiple_crcl_2012.htm Glucose [Mass/Vol] 90 mg/dL 70 - 99 mg/dL [place] Interpretation and review of laboratory results Abnormal [place] Potassium [Moles/Vol] 4.6 mmol/L 3.7 - 5.3 mmol/L [place] Protein [Mass/Vol] 6.9 g/dL 6.4 - 8.3 g/dL [place] Sodium [Moles/Vol] 141 mmol/L 135 - 144 mmol/L [place] Urea nitrogen [Mass/Vol] 17 mg/dL 6 - 20 mg/dL [place] Drugon 05-12-2019 Ethanol [Mass/Vol] mg/dL <10 mg/dL [place] Hematologyon 05-12-2019 aPTT Coag (Bld) [Time] 23.8 s [place] INR Coag (PPP) [Relative time] 1.0 {INR} [place] Comment on above: Therapeutic Range: Moderate Anticoagulant Intensity: INR = 2.0-3.0 High Anticoagulant Intensity: INR = 2.5-3.5 PT Coag (PPP) [Time] 10.5 s [place] MAGNESIUMon 05-12-2019 Magnesium [Mass/Vol] 1.6 mg/dL 1.6 - 2 .6 mg/dL [place] MYOGLOBIN, SERUMon 9 Interpretation and review of laboratory results Abnormal [place] Myoglobin [Mass/Vol] 1739 ng/mL High 28 - 72 ng/mL [place] Metabolic Panelon 05-12-2019 Ammonia (P) [Mass/Vol] 17 umol/L 16 - 60 umol/L [place] Calcium [Mass/Vol] 1.06 mmol/L Low 1.13 - 1. 33 mmol/L [place] Otheron 05-12-2019 Acetaminophen [Mass/Vol] <5 Low 10 - 30 ug/mL [place] Ethanol percent <0.010 <0.010 % [place] Interpretation and review of laboratory results Abnormal [place] Salicylate Lvl <1 Low 3 - 10 mg/dL [place] Toxic Tricyclic Sc,Blood Negative NEGATIVE [place] Interpretation and review of laboratory results Abnormal [place] Lactic Acid, Whole Blood 2.5 mmol/L High 0.7 - 2.1 mmol/L [place] Amorphous, UA NOT REPORTED None [place], [place] Bacteria, UA NOT REPORTED None [place] Casts UA 5 TO 10 HYALINE Reference range defined for non-centrifuged specimen. [place] Crystals UA NOT REPORTED None /HPF [facility] [place] Epithelial Cells UA None [place] Mucus, UA NOT REPORTED None [place] Other Observations UA NOT REPORTED NOT REQ. [facility] [place] RBC (U) [#/Vol] 2 TO 5 [place] Comment on above: Reference range defi saniya for non-centrifuged specimen. Renal Epithelial, Urine NOT REPORTED 0 /HPF [place] Trichomonas, UA NOT REPORTED None [facility] [place] WBC, UA 2 TO 5 [place] Yeast, UA NOT REPORTED None [place] - [place] Bilirubin Urine Negative NEGATIVE [place] Color, UA YELLOW YELLOW [place] Glucose, Ur Negative NEGATIVE [place] Interpretation and review of laboratory results Abnormal [place] Nitrite, Urine Negative NEGATIVE [place] pH, UA 5.0 [place] Specific [place], UA 1.016 [place] Turbidity UA CLEAR CLEAR [place] Urinalysis Comments NOT REPORTED [place] Urine Hgb MODERATE Abnormal NEGATIVE [place] Urobilinogen, Urine Normal Normal [place] Culture DUE TO THE SPECIMEN TYPE, THE ORDER WAS CANCELED AND REORDERED. PLEASE REFER TO: MRSA DNA NASAL [place] Special Requests NOT REPORTED [place] Specimen Description .NARES [place] EXAMINATION: ONE XRA Y VIEW OF [...] effusions. No acute osseous abnormality is seen. [place] Reginaldo, Mhpn Incoming Radiant Results From [employer] - 05/12/2019 6:09 PM EDT EXAMINATION: ONE [...] patchy perihilar vascular crowding and atelectasis/airspace disease. [place] Endotracheal tube ti p is approximately 5-6 cm above the roxi. Mild patchy perihilar vascular crowding and atelectasis/airspace disease. [place] Urinalysison 05-12-2019 Ketones Ql (U) SMALL Abnormal NEGATIVE [place] Leukocyte esterase Test strip Ql (U) Negative NEGATIVE [place] Protein (U) [Mass/Vol] Negative NEGATIVE [place] Vital Signs Date Time Vital Sign Value Performing Clinician Facility 09-03-2023 13:48-0500 Body height 175.3 cm [email or web address] Work Phone: [facility] [employer] 09-03-2023 13:48-0500 Body mass index (BMI) [Ratio] 38.85 kg/m2 [employer] DO Work Phone: [facility] 09-03-2023 13:48-0500 Body temperature 97.39 [degF] [employer] DO Work Phone: [facility] 09-03-2023 13:48-0500 Body weight 119.34 kg [email or web address] Work Phone: [facility] 09-03-2023 13:48-0500 Diastolic blood pressure 90 mm[Hg] Shakeel Furlong DO Work Phone: [facility] 09-03-2023 13:48-0500 Heart rate 102 /min Shakeel Furlong DO Work Phone: [facility] 09-03-2023 13:48-0500 SaO2% (BldA) [Mass fraction] 99 % Shakeel Furlong DO Work Phone: [facility] 09-03-2023 13:48-0500 Systolic blood pressure 150 mm[Hg] Shakeel Furlong DO Work Phone: [facility] 06-12-2023 07:30-0400 Body temperature 98 [degF] DO Shakeel Furlong Work Phone: [facility] 06-12-2023 07:30-0400 Diastolic blood pressure 83 mm[Hg] DO Shakeel Furlong Work Phone: [facility] 06-12-2023 07:30-0400 Heart rate 60 /min DO Shakeel Furlong Work Phone: [facility] 06-12-2023 07:30-0400 Respiratory rate 16 /min DO Shakeel Furlong Work Phone: [facility] 06-12-2023 07:30-0400 SaO2% (BldA) [Mass fraction] 95 % DO Shakeel Furlong Work Phone: [facility] 06-12-2023 07:30-0400 Systolic blood pressure 134 mm[Hg] DO Shakeel Furlong Work Phone: [facility] 06-10-2023 14:40-0400 Body height 175.26 cm DO Shakeel Furlong Work Phone: [facility] 06-10-2023 09:00-0400 Body weight 100.81 kg DO Shakeel Furlong Work Phone: [facility] 06-07-2023 15:25-0400 Inhaled oxygen flow rate 2 L/min DO Shakeel Furlong Work Phone: [facility] 05-02-2023 10:29-0400 Body height 175.26 cm MD Josiah Linder MD [employer] 05-02-2023 10:29-0400 Body mass index (BMI) [Ratio] 32.35 kg/m2 MD Josiah Linder MD [employer] 05-02-2023 10:29-0400 Body temperature 97.88 [degF] MD Josiah Linder MD [employer] 05-02-2023 10:29-0400 Body weight 99.37 kg MD Josiah Linder MD [employer] 05-02-2023 10:29-0400 Diastolic blood pressure 91 mm[Hg] MD Josiah Linder MD [employer] 05-02-2023 10:29-0400 Heart rate 67 /min MD Josiah Linder MD [employer] 05-02-2023 10:29-0400 Inhaled oxygen concentration 98 % MD Josiah Linder MD [employer] 05-02-2023 10:29-0400 Respiratory rate 18 /min MD Josiah Linder MD [employer] 05-02-2023 10:29-0400 Systolic blood pressure 122 mm[Hg] MD Josiah Linder MD [employer] 03-24-2023 07:30-0400 Body temperature 97.4 [degF] DO Shakeel Furlong Work Phone: [facility] 03-24-2023 07:30-0400 Diastolic blood pressure 78 mm[Hg] DO Shakeel Furlong Work Phone: [facility] 03-24-2023 07:30-0400 Heart rate 56 /min DO Shakeel Furlong Work Phone: [facility] 03-24-2023 07:30-0400 Respiratory rate 16 /min DO Shakeel Furlong Work Phone: [facility] 03-24-2023 07:30-0400 SaO2% (BldA) [Mass fraction] 97 % DO Shakeel Furlong Work Phone: [facility] 03-24-2023 07:30-0400 Systolic blood pressure 134 mm[Hg] DO Shakeel Furlong Work Phone: [facility] 03-21-2023 14:17-0400 Body height 175.26 cm DO Shakeel Furlong Work Phone: [facility] 03-20-2023 22:50-0400 Body weight 96.7 kg DO Shakeel Furlong Work Phone: [facility] 03-20-2023 17:50-0400 Body temperature 98 [degF] DO Shakeel Furlong Work Phone: [facility] 03-20-2023 17:50-0400 Diastolic blood pressure 101 mm[Hg] DO Shakeel Furlong Work Phone: [facility] 03-20-2023 17:50-0400 Heart rate 78 /min DO Shakeel Furlong Work Phone: [facility] 03-20-2023 17:50-0400 Respiratory rate 16 /min DO Shakeel Furlong Work Phone: [facility] 03-20-2023 17:50-0400 SaO2% (BldA) [Mass fraction] 96 % DO Shakeel Furlong Work Phone: [facility] 03-20-2023 17:50-0400 Systolic blood pressure 167 mm[Hg] DO Shakeel Furlong Work Phone: [facility] 03-20-2023 17:46-0400 Body height 175.26 cm DO Shakeel Furlong Work Phone: [facility] 03-20-2023 17:46-0400 Body weight 96.7 kg DO Shakeel Furlong Work Phone: [facility] 01-24-2023 09:18-0400 Diastolic blood pressure 85 mm[Hg] DO Shakeel Furlong Work Phone: [facility] 01-24-2023 09:18-0400 Heart rate 68 /min DO Shakeel Furlong Work Phone: [facility] 01-24-2023 09:18-0400 Respiratory rate 16 /min DO Shakeel Furlong Work Phone: [facility] 01-24-2023 09:18-0400 SaO2% (BldA) [Mass fraction] 98 % DO Shakeel Furlong Work Phone: [facility] 01-24-2023 09:18-0400 Systolic blood pressure 123 mm[Hg] DO Shakeel Furlong Work Phone: [facility] 01-24-2023 07:04-0400 Body height 175.26 cm DO Shakeel Furlong Work Phone: [facility] 01-24-2023 07:04-0400 Body temperature 97.6 [degF] DO Shakeel Furlong Work Phone: [facility] 01-24-2023 07:04-0400 Body weight 104.32 kg DO Shakeel Furlong Work Phone: [facility] 11-09-2022 10:30-0500 Body height 175.26 cm Jonathan Workman Other [employer] Other 11-09-2022 10:30-0500 Body mass index (BMI) [Ratio] 34.4 kg/m2 Jonathan Workman Other [employer] Other 11-09-2022 10:30-0500 Body weight 105.69 kg Jonathan Workman Other [employer] Other 11-09-2022 10:30-0500 Diastolic blood pressure 94 mm[Hg] Jonathan Workman Other [employer] Other 11-09-2022 10:30-0500 Systolic blood pressure 147 mm[Hg] Jonathan Workman Other [employer] Other 08-06-2022 10:53-0500 Body weight 0 kg DO Lee Mtz Work Phone: [facility] 04-09-2022 09:30-0400 Body height 175.26 cm Elizabeth Dempsey Other [employer] Other 04-09-2022 09:30-0400 Body mass index (BMI) [Ratio] 32.48 kg/m2 Elizabeth Dempsey Other [employer] Other 04-09-2022 09:30-0400 Body weight 99.79 kg Elizabeth Dempsey Other [employer] Other 05-18-2019 07:13-0400 Body Temperature 97.9 [degF] [employer] [employer], [place] 05-18-2019 07:13-0400 BP Diastolic 89 mm[Hg] [facility] [place] 05-18-2019 07:13-0400 BP Systolic 134 mm[Hg] [facility] [place] 05-18-2019 07:13-0400 Pulse (Heart Rate) 85 /min [facility] [place] [place] 05-18-2019 07:13-0400 Respiratory Rate 14 /min [facility] [employer] , [place] 05-16-2019 19:31-0400 Pulse Oximetry 99 % [facility] [place] [place] 05-15-2019 23:11-0400 BMI (Body Mass Index) 32.28 kg/m2 Shakeel [facility] [place] 05-15-2019 23:11-0400 Body weight 102.06 kg [facility] [place] [facility] [place] 05-15-2019 23:11-0400 Height 177.8 cm [facility] [place] 05-15-2019 11:15-0400 Body Temperature 97.81 [degF] [place], [place] 05-15-2019 11:15-0400 BP Diastolic 103 mm[Hg] [place], [place] 05-15-2019 11:15-0400 BP Systolic 135 mm[Hg] [place] 05-15-2019 11:15-0400 Pulse (Heart Rate) 71 /min [place], [place] 05-15-2019 11:15-0400 Pulse Oximetry 94 % [facility] [place] 05-15-2019 11:15-0400 Respiratory Rate 18 /min [place] 05-13-2019 06:00-0400 BMI (Body Mass Index) 31.19 kg/m2 [facility] [place] 05-13-2019 06:00-0400 Body weight 104.3 kg [place] 05-12-2019 16:21-0400 Height 182.9 cm [place] Encounters Encounter Date Encounter Type Care Provider Facility Start: 02-21-2024 End: 02-21-2024 ambulatory [facility] Start: 02-05-2024 End: 02-05-2024 ambulatory [facility] Start: 11-20-2023 End: 12-13-2023 Subsequent hospital visit by physician Kemar Ballesteros MD Work Phone: [facility] Start: 10-19-2023 Evaluation and management of inpatient GEORGE BLUE [facility] Start: 10-04-2023 End: 11-20-2023 Evaluation and management of inpatient JULI RAYMOND [facility] Start: 09-25-2023 End: 09-25-2023 ambulatory Jonathan Workman Other [employer] Other Start: 09-25-2023 Telephone encounter Jonathan [facility] Start: 09-06-2023 Orders Only Shakeel jackson DO [facility] Start: 09-04-2023 End: 09-04-2023 [facility] Start: 09-04-2023 Encounter for genera l adult medical examination without abnormal findings [facility] Start: 09-03-2023 End: 09-03-2023 Patient encounter status Shakeel Kaye DO Work Phone: [facility] [employer] Work Phone: Start: 09-03-2023 End: 09-03-2023 Periodic preventive med est patient 40-64yrs Shakeel Kaye DO Work Phone: [facility] Comment [...] liver function Start: 09-03-2023 End: 09-03-2023 ambulatory [facility] Start: 09-03-2023 Encounter for genera l adult medical examination without abnormal findings [facility] Start: 06-07-2023 End: 06-12-2023 Evaluation and management of inpatient Bradford Scotty Facility:[facility] Start: 06-07-2023 End: 06-12-2023 Evaluation and management of inpatient DO Shakeel Brownlong Work Phone: [facility] Work Phone: Start: 06-07-2023 ambulatory Dwain Vann Facility:[facility] Start: 05-01-2023 End: 05-02-2023 Emergency department patient visit [facility] Comment on above: Hypotension, unspeci fied; Alcohol dependence with withdrawal, uncomplicated (CMS/HCC); Alcohol dependence with intoxication, uncomplicated (CMS/HCC); Blood alcohol level of 80-99 mg/100 ml; Acute kidney failure, unspecified (CMS/HCC); Dehydration; Other stimulant use, unspecified, uncomplicated; Cannabis use, unspecified, uncomplicated; Anxiety disorder, unspecified; Allergy status to penicillin; Other usp (current) drug therapy; Nausea with vomiting, unspecified Start: 03-26-2023 End: 04-01-2023 Evaluation and management of inpatient JIMENEZ HUBERT Facility:[facility] Start: 03-25-2023 End: 03-26-2023 ambulatory YANDYMASHA HÉCTOR Facility:[facility] Start: 03-21-2023 End: 03-24-2023 Evaluation and management of inpatient Dwain Vann Facility:[facility] Start: 03-20-2023 End: 03-24-2023 Evaluation and management of inpatient DO Shakeel Brownlong Work Phone: [facility] Work Phone: Start: 01-24-2023 End: 01-24-2023 ambulatory Jonathan Workman Facility:[facility] Start: 01-24-2023 End: 01-24-2023 Admission to same day surgery center DO Shakeel Furlong Work Phone: [facility] Work Phone: Start: 11-09-2022 End: 11-09-2022 ambulatory Jonathan Workman Other [employer] Other Start: 11-09-2022 Patient encounter procedure Jonathan Harmonhossein [facility] Start: 08-22-2022 End: 08-22-2022 ambulatory DO Lee Duncans Work Phone: [facility] Work Phone: Start: 08-22-2022 End: 08-22-2022 Patient encounter procedure DO Lee Dunacns Work Phone: [facility] Start: 06-06-2022 Postop follow up vis it related to original px Elizabeth Dempsey [facility] Start: 06-06-2022 End: 06-06-2022 ambulatory DO Lee Alcantarhas Work Phone: [facility] Work Phone: Start: 06-06-2022 End: 06-06-2022 Patient encounter procedure DO Lee Duncans Work Phone: [facility] Start: 05-08-2022 End: 05-08-2022 Patient encounter procedure DO Lee Alcantarhas Work Phone: [facility] Start: 04-09-2022 End: 04-09-2022 ambulatory Elizabeth Dempsey Other [employer] Other Start: 04-09-2022 FQHC visit new patient Elizabeth Byers y [facility] Start: 04-09-2022 End: 04-09-2022 Patient encounter procedure DO Lee Yuhas Work Phone: [facility] Start: 04-05-2022 End: 04-05-[address] RILEY DOAN Facility:[facility] Start: 01-08-2022 End: 01-09-[address] DOCTOR FORREST Facility:[facility] Start: 12-28-2021 End: 12-29-[address] DOCTOR FORREST Facility:[facility] Start: 05-23-2021 End: 05-24-[address] [facility]IDU [facility] Facility[facility] Start: 05-12-2019 End: 05-15-2019 Evaluation and management of inpatient Katrina Joe Work Phone: [facility] Start: 05-12-2019 Patient encounter procedure Shakeel Kaye [facility] Admitting Comment on above: N/A MD Josiah Linder MD [facility] Procedures Date Procedure Procedure Detail Performing Clinician [...] Work Phone: Start: 12-06-2023 Assay of lactate Alec tipton MD Work Phone: Start: 12-06-2023 C-reactive protein Alec Albarran MD Work Phone: Start: 12-05-2023 Radiologic exam ches t single view Karissa Abraham HEAD OF OPERATION [employer] LOGISTICS - [employer]STATE TAX EXAMINER Work Phone: Start: 12-05-2023 Urnls dip stick/tabl et rgnt auto w/o microscopy Karissa Abraham HEAD OF OPERATION AND LOGISTICS - ESTATE TAX EXAMINER Work Phone: Start: 12-05-2023 Comprehensive metabo lic [...] 11-25-2023 Comprehensive metabo lic panel Selina Harrison HEAD OF OPERATION AND LOGISTICS - ESTATE TAX EXAMINER Work Phone: Start: 11-23-2023 Blood count complete automated Kemar Ballesteros MD Work Phone: Start: 11-23-2023 Radiologic exam ches t single view Kemar Ballesteros MD Work Phone: Start: 11-23-2023 Urinalysis microscopic only Karissa Abraham HEAD OF OPERATION AND LOGISTICS - ESTATE TAX EXAMINER Work Phone: Start: 11-23-2023 Urnls dip stick/tabl et rgnt auto w/o microscopy Karissa Abraham HEAD OF OPERATION AND LOGISTICS - ESTATE TAX EXAMINER Work Phone: Start: 11-22-2023 Radiologic exam ches t single view Karissa Abraham HEAD OF OPERATION AND LOGISTICS - ESTATE TAX EXAMINER Work Phone: Start: 11-22-2023 Comprehensive metabo lic panel Kemar Ballesteros MD Work Phone: Start: 11-21-2023 Assay of troponin quantitative Karissa Abraham HEAD OF OPERATION AND LOGISTICS - ESTATE TAX EXAMINER Work Phone: Start: 11-21-2023 Assay of troponin [...] metabolic pane l calcium total Tomasa Tinajero PA-C Start: 05-01-2023 Complete blood count with white cell differential, automated Tomasa Tinajero PA-C Start: 05-01-2023 DRUG SCREEN,URINE Tomasa Tinajero PA-C Start: 05-01-2023 Ethanol [Mass/volume ] in Serum or Plasma Tomasa Tinajero PA-C Start: 05-01-2023 Magnesium [Mass/volu me] in Serum or Plasma Tomasa Tinajero PA-C Start: 05-01-2023 Salicylates [Mass/vo lume] in Serum or Plasma Tomasa Tinajero PA-C Start: 05-01-2023 Urinalysis complete W Reflex Culture panel - Urine Tomasa Tinajero PA-C Start: 01-24-2023 Screening colonoscopy D O Shakeel [...] Start: 05-16-2019 Comprehensive metabo lic panel Tristin Beck Work Phone: Start: 05-16-2019 Drug assay valproic dipropylacetic acid total Tristin Beck Work Phone: Start: 05-16-2019 Hemoglobin glycosylated a1c [...] Phone: Start: 05-14-2019 Creatine kinase total L gelaciomonique Edmond Work Phone: Start: 05-13-2019 End: 05-13-2019 EXTUBATION Neda Edmond Work Phone: Start: 05-13-2019 RHYTHM STRIP REPORT Hpf Scanning Start: 05-13-2019 ARTERIAL BLOOD GAS, POC Kitani Work Phone: Start: 05-13-2019 Gluc bld gluc [...] Work Phone: Start: 05-13-2019 C-reactive protein Tonio Pope Work Phone: Start: 05-13-2019 LACTATE, SEPSIS Becky [...] prsmptv pthgnc o rganism scrn w/colony estimj Cayden Ham Work Phone: Start: 05-12-2019 Culture bacterial bl ood aerobic w/id isolates Neda Edmond Work Phone: Start: 05-12-2019 Radiologic exam ches t single view Neda Edmond Work Phone: Start: 05-12-2019 ARTERIAL BLOOD GAS, POC Katrina Joe Work Phone: Diabetes mellitus screening Elizabeth Dempsey Other Hyperlipidemia screening Col kasi Dempsey Other Plan of Treatment Date Care Activity Detail Author Start: 05-14-2033 DTaP,Tdap and Td Vaccines (3 - Td or Tdap) DTaP,Tdap and Td Vaccines (3 - Td or Tdap) [facility] Start: 05-14-2033 DTaP/Tdap/Td vaccine (3 - Td or Tdap) DTaP/Tdap/Td vaccine (3 - Td or Tdap) [facility] Start: 10-04-2028 Lipid panel Lipids [facility] Start: 2028 Zoster Vaccines (1 of 2) Zoste r Vaccines (1 of 2) [facility] Start: 09-03-2024 Adult BMI Screening Adult BMI Screen ing [facility] Start: 09-03-2024 Depression Screening Depression Scre ening [facility] Start: 09-03-2024 Tobacco Screening Tobacco Screening [facility] Start: 05-16-2024 Lipid screen Lipid screen [place] Start: 06-28-2023 COVID-19 Vaccine ( season) COVID-19 Vaccine () [facility] Start: 06-12-2023 [facility] Start: 06-07-2023 Hospital admission [facility] Start: 05-03-2023 COVID-19 Vaccine () COVID-19 Vaccine () [facility] Start: 05-03-2023 Influenza vaccination Influenza Vacc ine (#1) [facility] Start: 2023 Screening for malign ant neoplasm of colon [facility] Start: 03-24-2023 [facility] Start: 03-20-2023 Hospital admission [facility] Start: 01-24-2023 [facility] Start: 08-22-2022 [facility] Start: 06-10-2019 End: 06-10-2019 Office Visit 06/10/2019 Office Visit Neurology Brenda Mcdowell MD [address] [facility] [address] [address] [phone] [facility] Start: 05-03-2019 Influenza vaccination Flu vaccine (# 1) [place], [place] Start: 10-28-2018 DTaP/Tdap/Td vaccine (2 - Td) DTaP/Tdap/Td vaccine (2 - Td) [place] Start: 2018 Diabetes screen Diabetes screen [place], [place] Start: 2018 Lipid screen Lipid screen [place], [place] Start: 01-21-2018 Hepatitis B vaccine (1 of 1 - Risk Dialysis 4-dose series) Hepatitis B vaccine (1 of 1 - Risk Dialysis 4-dose series) [facility] Start: 2000 DTaP/Tdap/Td Vaccine s (1 - Tdap) DTaP/Tdap/Td Vaccines (1 - Tdap) [facility] Start: 1996 Adult BMI Follow Up Plan Adult BMI Follow Up Plan [facility] Start: 1996 Hepatitis C screening U [facility] Start: 1993 HIV screen HIV screen [place], [place] Start: 1993 HIV screening HIV screen [facility] Start: 1990 Depression Monitoring Depression Mon itoring [facility] Start: 1984 Pneumococcal 0-64 ye ars Vaccine (1 of 1 - PPSV23) Pneumococcal 0-64 years Vaccine (1 of 1 - PPSV23) [place] Start: 1984 Pneumococcal 0-64 ye ars Vaccine (1 of 2 - PCV) Pneumococcal 0-64 years Vaccine (1 of 2 - PCV) [facility] Start: 1984 Pneumococcal Vaccine : Pediatrics (0 to 5 Years) and At-Risk Patients (6 to 64 Years) (1 - PCV) Pneumococcal Vaccine: Pediatrics (0 to 5 Years) and At-Risk Patients (6 to 64 Years) (1 - PCV) [facility] Start: 1979 MMR Vaccines (1 of 1 - Standard series) MMR Vaccines (1 of 1 - Standard series) [facility] Start: 1978 COVID-19 Vaccine (#1) COVID-19 Vacci ne (#1) [facility] Start: 1978 Hepatitis B Vaccines (1 of 3 - 3-dose series) Hepatitis B Vaccines (1 of 3 - 3-dose series) [facility] Start: 1978 HIV screening HIV Screening [facility] Start: 1978 Lipid panel Lipid Panel [facility] Start: 1978 Screening for malign ant neoplasm of colon [facility] Start: 1978 Yearly Adult Physical Yearly Adult P hysical [facility] CBC auto differential CBC auto d ifferential Lab Routine Daily until discontinued starting 05/13/2019, 3 completed [place] Comment on above: Daily until disconti nued starting 05/13/2019, 3 completed CK CK Lab Routine D aily until discontinued starting 05/14/2019, 2 completed [employer] [facility] Comment on above: Daily until disconti nued starting 05/14/2019, 2 completed End: 09-03-2024 Comprehensive metabolic 2000 panel - Serum or Plasma Comprehensive metabolic panel Lab Routine Well adult health check 1 Occurrences starting 09/03/2023 until 09/03/2024 [employer] Work Phone: Comment on above: 1 Occurrences starti ng 09/03/2023 until 09/03/2024 Comprehensive Metabo lic Panel w/ Reflex to MG Comprehensive Metabolic Panel w/ Reflex to MG Lab Routine Daily until discontinued starting 05/13/2019, 3 completed Ofelia FelizBRE Comment on above: Daily until disconti nued starting 05/13/2019, 3 completed Culture Blood [facility] [facility] Initiate Oxygen Ther apy Protocol Initiate Oxygen Therapy Protocol Respiratory Care Routine Daily until discontinued starting 05/12/2019 [facility] Comment on above: Daily until disconti nued starting 05/12/2019 End: 09-03-2024 Lipid panel Lipid panel Lab Routine Well adult health check 1 Occurrences starting 09/03/2023 until 09/03/2024 [employer] Comment on above: 1 Occurrences starti ng 09/03/2023 until 09/03/2024 Patient Education [facility] Work Phone: Patient referral [facility] Work Phone: End: 05-12-2019 Respiratory care evaluation only Respiratory care evaluation only Respiratory Care Routine One Time for 1 Occurrences starting 05/12/2019 until 05/12/2019 [facility] [employer] MNBRE Comment on above: One Time for 1 Occur rences starting 05/12/2019 until 05/12/2019 End: 05-12-2019 Strep Pneumoniae Antigen Strep Pneumoniae Antigen Microbiology Routine One Time for 1 Occurrences starting 05/12/2019 until 05/12/2019 [facility] [facility]RE Comment on above: One Time for 1 Occur rences starting 05/12/2019 until 05/12/2019 End: 09-03-2024 Vitamin D 25 hydroxy Vitamin D 25 hydroxy Lab Routine Vitamin D deficiency 1 Occurrences starting 09/03/2023 until 09/03/2024 [facility] Comment on above: 1 Occurrences starti ng 09/03/2023 until 09/03/2024 Immunizations Immunization Date Immunization Notes Care Provider Polina kraft 09-03-2023 influenza, injectabl e, quadrivalent, preservative free Shakeel Furlong DO Work Phone: [facility] 09-03-2023 Immunization, In Clinic,; Translations: [Drug or medicament (substance)] Shakeel Furlong DO Work Phone: [facility] 05-14-2023 tetanus toxoid, redu rocio diphtheria toxoid, and acellular pertussis vaccine, adsorbed Shakeel Furlong DO Work Phone: [facility] 07-16-2022 influenza, injectabl e, quadrivalent, preservative free Shakeel Furlong DO Work Phone: [facility] 08-17-2021 Influenza, injectabl e, Madin Amirah Canine Kidney, preservative free, quadrivalent Shakeel Furlong DO Work Phone: [facility] 12-20-2020 COVID-19, mRNA, LNP- S, PF, 100mcg/0.5mL Dose Shakeel Furlong DO Work Phone: [facility] 12-15-2020 COVID-19, mRNA, LNP- S, PF, 100mcg/0.5mL Dose Shakeel Furlong DO Work Phone: [facility] 11-22-2020 COVID-19, mRNA, LNP- S, PF, 100mcg/0.5mL Dose Shakeel Furlong DO Work Phone: [facility] 11-16-2020 COVID-19, mRNA, LNP- S, PF, 100mcg/0.5mL Dose Shakeel Furlong DO Work Phone: [facility] 08-01-2020 Influenza, injectabl e, Madin [place] Canine Kidney, preservative free, quadrivalent Shakeel Furlong DO Work Phone: [facility] 07-19-2017 Influenza, injectabl e, Madin Amirah Canine Kidney, preservative free, quadrivalent Shakeel Furlong DO Work Phone: [facility] 01-21-2017 hepatitis A vaccine, adult dosage Shakeel Furlong DO Work Phone: [facility] 01-21-2017 hepatitis B vaccine, adult dosage Shakeel Furlong DO Work Phone: [facility] 09-02-2016 influenza virus vaccine, unspecified formulation [place], [place] 08-20-2016 hepatitis B vaccine, adult dosage Shakeel Furlong DO Work Phone: [facility] 07-31-2016 influenza, seasonal, injectable, preservative free Shakeel Furlong DO Work Phone: [facility] 07-02-2016 hepatitis A vaccine, adult dosage Shakeel Furlong DO Work Phone: [facility] 07-02-2016 hepatitis B vaccine, adult dosage Shakeel Furlong DO Work Phone: [facility] 10-28-2008 tetanus toxoid, redu rocio diphtheria toxoid, and acellular pertussis vaccine, adsorbed [place], [place] Payers Date Payer Category Payer Self-pay [id number] 2020 Medicaid [employer] [place] [employer] [id number] 2020-Present [phone] [address] [place] [address] [id number] 2019 Unknown [employer] xxxxxxxxx 2019-Present [phone] [address] [place] [address] xxxxxxxxx [id number] 2019 Unknown [id number] 2015 Unknown [id number] 1978 Unknown [id number] 1978 Unknown [id number] 1978 Unknown [id number] 1978 Unknown [id number] 1978 Unknown [id number] 1978 Unknown [id number] 1978 Unknown [id number] 1978 Unknown [id number] 1978 Unknown [id number] 1959 Unknown [id number] Unknown [id number] Unknown [id number] Unknown [id number] Unknown [id number] Social History Date Type Detail Facility Tobacco smoking stat us NHIS Unknown if ever smoked [facility] Start: 1978 Sex Assigned At Male F [facility] Start: 05-12-2019 End: 05-15-2019 Tobacco smoking status NHIS Never smoker [facility] Start: 05-12-2019 End: 10-03-2023 Alcohol intake Yes [facility] [place] Start: 05-12-2019 Alcohol Comment 1 bottle of ch eap liquor a day [place], [place] Start: 1978 Sex Assigned At Not on file [place] Start: 05-15-2019 Tobacco Comment pt nonsmoker [facility] Start: 05-02-2023 End: 06-08-2023 Not Known [facility] [place] Start: 05-15-2019 End: 07-16-2022 Tobacco use and exposure Smokeless tobacco non-user [facility] [employer] [facility] Start: 09-03-2023 Alcohol intake Ex-drinker (finding) [facility] [employer] [facility] Start: 09-03-2023 End: 10-03-2023 Alcohol intake [facility] Has the [employer], or [employer] threatened to shut off services in your home in past 12Mo No [facility] [employer] Do you belong to any clubs or organizations such as confucianist groups, unions, fraternal or athletic groups, or school groups? Yes [facility] Are you now , , , , never or living with a partner? [facility] How often to you hav e a drink containing alcohol? Never [facility] How many standard dr inks containing alcohol do you have on a typical day? Patient does not drink [facility] Do you feel stress - tense, restless, nervous, or anxious, or unable to sleep at night because your mind is troubled all the time - these days [OSQ] Not at all [facility] Start: 09-03-2023 Alcohol Comment not currently drinking [facility] Start: 11-18-2023 Alcohol intake Current drinke r of alcohol (finding) [facility] Goals Date Patient Goal Desired Activity /State Functional Status Date Assessment Result Facility 06-12-2023 Functional status Patient at [facility] Work Phone: 03-24-2023 Functional status Patient at [facility] Work Phone: Mental Status Date Assessment Result Facility 06-12-2023 Cognitive function Cognitive Sta tus Patient at [facility] Work Phone: 03-24-2023 Cognitive function Cognitive Sta s Patient at [facility] Work Phone: Clinical Notes 04-05-2022 to 02-21-2024 Significant Event - Shakeel Kaye, DO - 09/03/2023 2:31 PM ESTSignificant Event - Shakeel Kaye, DO - 09/03/2023 2:31 PM ESTDentaylor Kaye, DO - 09/03/2023 2:00 PM EST Note Date & Type Note Facility 02-21-2024 Note [facility] Note Reason for cardiology consult: Patient here for follow up [facility] and [facility] in Oct 2023. He was seen as inpatient consult by Ирина Angulo CNP while inpatient at [facility]. Chief Complaint: Dyspnea on exertion HPI: Kandice Polanco is a 43 y.o. male The patient was admitted end of September 2023 at [facility] because of acute respiratory failure with hypoxia which was felt to due to alcoholic bilateral aspiration pneumonia, also he had alcohol withdrawal symptoms, acute renal insufficiency and mildly elevated troponin. His echo at that time showed normal left ventricle systolic function without wall motion abnormalities. Because of respiratory failure and severe alcohol withdrawal symptoms the patient was transferred to [facility], he had bilateral PEs on 10/10/2023 with [...] 11/20/2023 to long-term acute care [facility]. He was transferred later to a alf in [facility]. He lives now with his parents. He [...] wave abnormalities ECMO,Date of Procedure: 10/19/2023 at [facility] Pre-Op Diagnosis Codes: * ARDS (adult respiratory distress syndrome) (HCC) [J80] Refractory hypoxia Post-Op Diagnosis: Same Procedure(s): EXTRA CORPOREAL MEMBRANE OXYGENATION CANNULATION Surgeon(s): George Blue MD Singh, Hemindermeet, MD Anesthesia: General Estimated Blood Loss (mL): 200 Complications: None Findings: Successful implantation of 32 F Single access Dual lumen VV ECMO Cannula (Dousman) via right IJ access. Successful insertion of [...] anterior pericardial effusi (more content not included)... [facility] 09-03-2023 Progress note Formatting of t his note might be different from the original. [facility] Miscellaneous Notes Quit a few months ago documented in this encounter [employer] 09-03-2023 History of Present illness Narrative Subjective [...] liver function tests documented in this encounter [facility] 06-12-2023 Hospital Discharge instructions Additional Instructions Important Contact Information You can call [facility] Inpatient Behavioral Health at [phone] any time day or night if you have emergent questions or question regarding discharge instructions. If at any time you are feeling an increase in your psychiatric symptoms, call your physician or behavioral healthcare provider. If any time you have thoughts of harming yourself or others contact one of the following: Call (available 25/03) Crisis Text Line (available 25/03) text 4HOPE to [phone] [facility] Hope Line (available 8 a.m. Midnight) call [phone] ([phone]) Your Gabapentin dose had to be ordered as 2 separate orders due to the dosing. You should be on Gabapentin 700mg three times a day. Regular diet No activity restrictions [facility] Work Phone: 06-11-2023 Progress note Note Date/Time June 11, 2023 7:55am [facility] [address] [id number] Psychiatry Progress Note Signed Patient: Kandice Polanco MR#: [id number] : 1980 Acct:[id number] Age/Sex: 43 / M Adm Date: 3 Loc: 1S Room: 7N1711-7 Type : ADM IN Attending Dr: Bradford [...] were discussed. 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 He has no hx of [...] <Electronically signed by Dwain Vann MD> 06/11/23 0759 [facility] Work Phone: 1(579) 260-795310-09-2023 Progress note Author Dwain mercado [facility] June 10, 2023 8:32am Note Date/Time June 10, 2023 8: 32am [facility] [address] [place] [address] Psychiatry Progress Note Signed Patient: Kandice Polanco MR#: [id number] : 1980 Acct:[id number] Age/Sex: 43 / M Adm Date: 3 Loc: Room: [address] [place] [address] Type : ADM IN Attending Dr: Bradford Fajardo MD Copies to: ~ Date of Service: 06/10/2023 Subjective Subjective Narrative: Mr. Polanco feels like he is starting to notice some improvement. He reported that he is still struggling in dealing with a lot of depression and anxiety. Heso far tolerated the increased dose of his [...] signed by Dwain Vann MD> 06/10/23 0832 [facility] Work Phone: 1(110) 190-725810-08-2023 Progress note Author Bradford Fajardo [facility] June 09, 2023 11:56am Note Date/Time June 09, 2023 11 :55am [facility] [address] [place] [address] Psychiatry Progress Note Signed Patient: Kandice Polanco MR#: [id number] : 1980 Acct:[id number] Age/Sex: 43 / M Adm Date: 3 Loc: 1S Room: [address] [place] [address] Type : ADM IN Attending Dr: Bradford [...] alternatives explained Documented By: Bradford Fajardo MD 06/09/23 115 Signed By: <Electronically signed by Bradford Fajardo MD> 06/09/23 1156 [facility] Work Phone: 1(407) 126-457010-07-2023 History and physical note Author Bradford Fajardo [facility] June 08, 2023 12:43pm Note Date/Time June 08, 2023 12 :42pm [facility] [address] [place] [address] Psychiatry H&P Signed Patient: Kandice Polanco MR#: [id number] : 1980 Acct:[id number] Age/Sex: 43 / M Adm Date: 3 Loc: Room: [address] [place] [address] Type: ADM IN Attending Dr: Bradford Fajardo MD Copies to: Bradford Fajardo MD Shakeel Kaye DO~ Date of Service: 06/08/2023 HPI History [...] homicidality, reported suicidality Insight: fair Judgment: fair [facility] Medical History (Updated 06/08/23 @ 12:43 by Bradford Fajardo MD) Acid reflux Anxiety Depression Fatty liver Hypertension Sleep apnea Surgical History [place] teeth removed Family History Mother Hypertension Father [...] Appearance Clear Urine pH 5.5 Ur Specific Delevan 1.020 Urine Protein Negative Urine Glucose (UA) [...] signed by Bradford Fajardo MD> 06/08/23 1243 [facility] Work Phone: 1(946) 152-422808-31-2023 Evaluation + Plan note Assessment and Plan from 05/02/2023 10:29 AM: * Why You Were Here: - Assessment and Plan from 05/02/2023 10:22 AM: * Brief Discharge Plan: Continue to hold your blood pressure medications clonidine and olmesartan fornow, as your blood pressure is currently normal without these medicationsContinue to work towards alcohol cessation and you can follow with [facility] today.Please measure your blood pressure once a day at home at different times and record this, and provide us information to your primary care physician. [facility] 08-31-2023 Hospital Discharge instructions Chest Pain/Heart Attack Information from 05/02/2023 10:29 AM: * Has Patient had Chest Pain or an KS during this Visit? : No * It [...] * Home Health Agencies : Return to [facility] following Medication Plan/Information for Discharge from 05/02/2023 10:29 AM: * Discharge Medication : None Patient Transfer Information from 05/02/2023 12:59 PM: * Directory of Nursing Homes : No skilled needs Physician Follow-up Plan/Appointments from 05/02/2023 10:55 AM: * Discharge Physician: : Favian Sheppard DO (1935) - Hospitalist * Patient stated Primary Care Provider : PCP, Other (PCP) ([facility] 9746) - Medical * Follow up with PCP in : 5 * Schedule follow up with PCP in: : Day(s) Stroke/TIA Discharge Information from 05/02/2023 10:29 AM: * Does the Patient Have a Problem/Diagnosis of Stroke this visit? : No [facility] 08-31-2023 Discharge summary* Discharge Summary Note : Discharge Disposition & Condition Patient Condition Stable. Hospital Course 43-year-old male pas t medical history of alcohol abuse presenting to ER for detox. Patient found to be hypotensive and with YESSENIA creatinine 1.7. Patient was bolused fluids and maintenance fluids overnight, and both hypotension and YESSENIA completely resolved. [facility], and the patient is discharged with the understanding that he can go to [facility] and ask for voluntary admission. [facility] [id number] NotePROCEDURE: BRAIN WO CONTRAST - WCT 3000 REASON FOR EXAM: falls; etoh RESULT: Patient Name: KANDICE POLANCO STUDY: BRAIN WO CONTRAST; 05/01/2023 6:06 pm INDICATION: falls; etoh. COMPARISON: No comparison exams available. ACCESSION NUMBER(S): [id number] ORDERING CLINICIAN: TOMASA TINAJERO TECHNIQUE: CT axial [...] intracranial process. Paranasal sinus disease. Dictation workstation: [id number] This exam is available in DICOM format [...] NO ADDENDUM Addendum Electronically Signed by/Date: SYNGO [id number] NotePROCEDURE: SPINE CERVICAL WO CONTRAST - WCT 3025 REASON FOR EXAM: falls; etoh RESULT: Patient Name: KANDICE POLANCO STUDY: SPINE CERVICAL WO CONTRAST; 05/01/2023 6:06 pm INDICATION: falls; etoh; COMPARISON: None available. ACCESSION NUMBER(S): [id number] ORDERING CLINICIAN: TOMASA TINAJERO TECHNIQUE: EXAMINATION: Spiral, [...] OF ACUTE CERVICAL SPINE FRACTURE. Dictation workstation: [id number] This exam is available in DICOM format [...] by/Date: NO ADDENDUM Addendum Electronically Signed by/Date: [employer] [id number] NoteHNO ID: [id number] Author: Sites, Guadalupe, RN Service: Nursing Author Type: Registered Nurse [...] Towards Short Term Goals: Adequate for discharge Management Planner Goals: Patient expresses examples of optimism and hope for the future Target Date Management Planner Goals: 04/01/23 Progress Towards Fdc Goals: Adequate for discharge Interventions - Nursing: Obtain baseline level of functioning on admission, Administer medications as indicated and monitor patient for effect daily, Provide education to the patient and/or family about the disease process and management as appropriate daily and as needed, Provide non-judgmental supportive, empathetic and comprehensive trauma informed care da (more content not included)...[facility]lpxucdo02-51-0637 NoteHNO ID: [id number] Author: Lilia Regalado LISW Service: Care Management Author Type: Youth Care Worker Type: Care Mgt Progress Note Filed: 04/01/2023 1:27 PM Note Text: BEHAVIORAL HEALTH SOCIAL WORK DISCHARGE NOTE SERVICE DATE: 04/01/2023 SERVICE TIME: 12:15pm Discharge Information Row Name Admission (Current) from 03/26/2023 in [facility] 3C Psychiatry Follow-Up Appointment Provider Name Dr. Sue Address [address], [place] [id number] fax: [phone] Appointment Date 04/09/23 Appointment Time 11:45am Additional Instructions This appointment is in person. Counselor Follow-Up Appointment Counselor Name [facility] Address [address] [place] [address], [place] [address] Appointment Date 04/09/23 Appointment Time 10:00am Additional Instructions Your first visit has to be in person, but follow up visits can be via tele-health as long as your insurance continues to cover it. Discharge Disposition Discharge Disposition Home with Family/Friend Additional Discharge Information Additional Discharge Resources In case of a mental health emergency, call [phone]. Patient/Rubber And Pounder Agreeable With Discharge Plan: Yes FREEDOM OF CHOICE EXPLAINED? Yes. A list of appropriate referrals presented to/discussed with Patient on 04/01/23 at 12:15pm [facility]-owned/affiliated facilities and agencies have been identified Patient/Rubber And Pounder Given/Explained Medicare Discharge Notice (IM letter): Not Applicable TRANSPORTATION ARRANGEMENTS: Car w/ brother PRESCRIPTIONS FILLED PRIOR TO DISCHARGE: Yes, faxed to outside pharmacy: e-scripted ADDITIONAL NOTES: Pt to be d/c'd home today with family. Pt reports improved mood, expresses readiness for d/c home today. Reports that his father is also being discharged from a alf today after being there for rehab for [...] Polanco DATE: April 01, 2023 TIME: 1:21 [facility]07-31-2023 NoteHNO ID: [id number] Author: Robyn Mcconnell RPh Service: Pharmacy Author [...] RPh April 01, 2023 10:29 AM Pager: [phone] 04/01/2023 10:29 AM Medication List START taking [...] Your Medications These medications were sent to [id number] [place] [address] - [address] [facility] [phone] [facility] [address] [address] [facility] [address] acetylcysteine 600 mg capsule cholecalciferol 1,000 unit Tab tablet cyanocobalamin 500 mcg tablet doxepin 10 mg capsule escitalopram oxalate 10 mg tablet gabapentin 300 mg capsule hydrOXYzine HCl 50 mg tablet melatonin 3 mg tablet therapeutic multivitamin-minerals 9 mg iron-400 [facility] NoteHNO ID: [id number] Author: Gabi Higginbotham PA-C Service: Psychiatry Author Type: Physician Microelectronics Technician Type: Progress Notes Filed: 03/30/2023 8:56 PM [...] Polanco DATE: March 30, 2023 TIME: 8:44 [facility]07-28-2023 NoteHNO ID: [id number] Author: Lilia Regalado LISW Service: Care Management Author Type: Youth Care Worker Type: Plan of Care Filed: 03/29/2023 3:24 [...] 03/29/23 Progress Towards Short Term Goals: Progressing Management Planner Goals: Patient expresses examples of optimism and hope for the future Target Date Fdc Goals: 04/04/23 Progress Towards Management Planner Goals: Progressing Interventions - Nursing: Obtain baseline [...] skills to develop patie (more content not included)...[facility] HospitalGdhgvmgd90-87-3109 NoteHNO ID: [id number] Author: Lilia Regalado LISW Service: Care Management Author Type: Youth Care Worker Type: Care Mgt Progress Note Filed: 03/29/2023 [...] up. Pt scheduled for initial appointment @ [facility] in [place], appointment placed in doc flowsheet. SW will continue to follow. SIGNATURE: Lilia Regalado HOSPITAL [employer] PATIENT NAME: Kandice Polanco DATE: March 29, 2023 TIME: 2:08 [facility]07-28-2023 NoteHNO ID: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 04/02/2023 [facility] DATE CREATED AUTHOR AUTHOR'S ORGANIZ ATION 2023 [facility] DATE CREATED AUTHOR AUTHOR'S ORGANIZ ATION 09/07/2023 [facility] DATE CREATED AUTHOR AUTHOR'S ORGANIZ ATION 10/11/2023 [facility] DATE CREATED AUTHOR AUTHOR'S ORGANIZ ATION 11/24/2023 [facility] DATE CREATED AUTHOR AUTHOR'S ORGANIZ ATION 12/09/2023 [facility] DATE CREATED AUTHOR AUTHOR'S ORGANIZ ATION 02/06/2024 [facility] DATE CREATED AUTHOR AUTHOR'S ORGANIZ ATION 02/22/2024 [facility] Care Teams (unrecognized sec tion [...] Shakeel Kaye DO Primary Care Provider Active Guillermina Torres PA-C Emergency Provider Active Bradford Fajardo MD Admit Provider, Attending Provider Active Enterprise Project Manager Relationship Specialty Start Date End Date Shakeel Kaye DO [address], [place] [address] PCP - General Family Medicine 05/14/23 Enterprise Project Manager Relationship Specialty Start Date End Date Shakeel Kaye DO [address], [place] [address] PCP - General Family Medicine 05/14/23 Enterprise Project Manager Relationship Specialty Start Date End Date Shakeel Kaye PCP - General Family Medicine 05/11/19 Goals (unrecognized section and content) Goals from 05/02/2023 10:29 AM:Goal for Diet : Maintain Balanced Diet,Maintain Healthy Body WeightGoal for Mobility : Maintain active lifestyle as toleratedGoal for Substance Abuse : Alcohol Cessation Patient Stated Goals from 05/02/2023 10:29 AM:Patient's Personal Life Style and Recovery [facility] Goals may be documented in an alternate [...] BE BASED ON THE PRIMARY CLINICAL RECORDS. [employer] [facility]. provides no warranty or guarantee of the accuracy or completeness of information in this document.
[2024-03-06 08:38] LABS: Alanine Aminotransferase 44 U/L (16-63); Anion Gap 14.6; Aspartate Amino Transferase 25 U/L (15-37); BUN Creatinine Ratio 13.6; Calcium 8.5 mg/dL (8.5-10.1); Carbon Dioxide 26.5 mmol/L (21.0-32.0); Chloride 101 mmol/L (98-107); Chol HDL Ratio 4.5; Cholesterol 211 mg/dL (<=200); Estimated GFR (African America >60 (>=60); Estimated GFR (Non-African Ame 59 (>=60); Glucose 102 mg/dL (74-106); HDL Cholesterol 47 mg/dL (40-60); Potassium 4.1 mmol/L (3.5-5.1); Sodium 138 mmol/L (136-145); Triglycerides 384 mg/dL (<=150); VLDL CHOLESTEROL 76.8 mg/dL
== END 2024-03-06 08:06 | disposition home or self-care (01) ==
LOC: CARD 08:06
PROVIDERS: PCP Family Medicine; Visit Provider Internal Medicine Cardiovascular Disease
DX: I21.4 Non-ST elevation (NSTEMI) myocardial infarction (principal); I31.4 Cardiac tamponade; I48.91 Unspecified atrial fibrillation
CPT/HCPCS: 36415; 80048; 80061; 84450; 84460

== ENCOUNTER 2024-04-06 08:51 | Outpatient (OUT) | payer OTHER, SELFPAY ==
--- NOTE | 2024-04-06 08:51 | PCN_ITS ---
Procedure Date:? 04/06/2024 INDICATION:? Non-ST elevation myocardial infarction. METHODS:? After risks, benefits and alternatives were explained, written informed consent was obtained.? The patient was brought to the Stress Lab in a resting and fasting state.? He was connected to the appropriate hemodynamic and electrocardiographic monitoring. He underwent a [place] protocol for exercise.? At peak exercise, Technetium Cardiolite was injected.? He was monitored for the standard duration and transferred to the Radiology Department in a stable state.? There were no complications. STRESS TEST INFORMATION: The patient underwent a [place] protocol.? He exercised for 4 minutes and 4 seconds, reaching state 2 and achieving 7 METS.? Resting blood pressure was 152/94, maximum blood pressure 182/96.? Resting heart rate was 109 beats per minute, increasing to a maximum of 150 beats per minute, which is 86% of maximum predicted heart rate. ELECTROCARDIOGRAPHY: Rest EKG:? This shows normal sinus rhythm, 95 beats per minute, incomplete right bundle branch block.? Cannot rule out anterior infarct, age indeterminate.? Abnormal EKG. During exercise and recovery:? No significant ST-T wave changes noted, no significant arrhythmia seen. FINAL IMPRESSIONS: 1.? No ischemic EKG changes seen on treadmill exercise stress test. 2.? Resting hypertension with an appropriate blood pressure response to exercise. 3.? Appropriate heat rate response to exercise. 4.? Dahl treadmill score is 4; this is associated with 1.3-2.9% estimated one year mortality.? Risk category is moderate risk.? Angiography may be indicated. 5.? Nuclear images are to be read, interpreted, and reported in a separate dictation. [facility]
[2024-04-06 10:21] LABS: Alanine Aminotransferase 81 U/L (16-63); Anion Gap 16.6; Aspartate Amino Transferase 63 U/L (15-37); BUN Creatinine Ratio 14.5; Calcium 8.8 mg/dL (8.5-10.1); Carbon Dioxide 23.2 mmol/L (21.0-32.0); Chloride 103 mmol/L (98-107); Cholesterol 224 mg/dL (<=200); Estimated GFR (African America >60 (>=60); Estimated GFR (Non-African Ame >60 (>=60); Glucose 109 mg/dL (74-106); HDL Cholesterol 32 mg/dL (40-60); Potassium 3.8 mmol/L (3.5-5.1); Sodium 139 mmol/L (136-145); Triglycerides 816 mg/dL (<=150); VLDL CHOLESTEROL 163.2 mg/dL
[2024-04-06 10:25] LABS: LDL Cholesterol Direct 86 mg/dL
--- NOTE | 2024-04-06 10:31 | PC.NURSE ---
Nursing Note Cardiac Stress Test Reviewed: Medication, allergies and patient history reviewed. Stress Test: [x ] Patient tolerated stress test well. [ ] Patient unable to tolerate walking on treadmill. Switched to Lexiscan stress test. [ x] No chest pain noted per patient [ ] Chest pain that resolved prior to leaving stress lab. [ ] No dyspnea noted. [ x] Dyspnea that resolved prior to leaving stress lab. [x ] Patient left stress lab asymptomatic and hemodynamically stable. [ ] Patient taken to the Emergency Room due to non-resolving symptoms following stress test. [ x] Patient achieved target heart rate. [ ] Patient unable to achieve target heart rate. [ ] Aminophylline administered as reversal agent to Lexiscan (Regadenoson). [ ] Nitro administered. Nursing Comments:Pt had Cardiolite stress test done. Pt tolerated well. No symptoms at time of leaving stress lab. Pt states his SOB with activity is the same he always has with activity. Did not have any chest pain.
== END 2024-04-06 08:52 | disposition home or self-care (01) ==
LOC: CARD 08:51
PROVIDERS: PCP Family Medicine; Visit Provider Internal Medicine Cardiovascular Disease
DX: I21.4 Non-ST elevation (NSTEMI) myocardial infarction (principal); I48.91 Unspecified atrial fibrillation
CPT/HCPCS: 36415; 80048; 80061; 83721; 84450; 84460; 93017

== ENCOUNTER 2024-07-13 09:23 | Outpatient (OUT) | payer OTHER, SELFPAY ==
[2024-07-13 11:46] LABS: Estimated Average Glucose 117 mg/dL; Glycohemoglobin A1C 5.7 % (4.5-6.2)
== END 2024-07-13 09:24 | disposition home or self-care (01) ==
PROVIDERS: PCP Family Medicine; Visit Provider Internal Medicine Cardiovascular Disease
DX: E78.1 Pure hyperglyceridemia (principal); R73.9 Hyperglycemia, unspecified
CPT/HCPCS: 36415; 83036

== ENCOUNTER 2025-01-10 10:05 | Emergency (ER) | payer OTHER, SELFPAY ==
[2025-01-10 10:12] VITALS: BP 96/69; PULSE 78; TEMP 36.8; O2SAT 94; BMI 41.3
--- NOTE | 2025-01-10 10:26 | ED.GENADUL1 ---
HPI HPI - General Adult General Chief complaint: Fall Stated complaint: LEFT KNEE AND ARM PAIN Time Seen by Provider: 01/10/25 10:14 Source: patient Mode of arrival: walk-in Limitations: no limitations History of Present Illness HPI narrative: 44-year-old male presents to the emergency department for pain in his left shoulder and left knee. 3 days ago he fell and he landed on these areas. No LOC and he did not hit his head. He is on Eliquis because of pulmonary embolism. No shortness of breath. Related Data Home Medications ?Medication ?Instructions ?Recorded ?Confirmed clonidine HCl 0.2 mg tablet 0.2 mg PO BEDTIME 09/30/23 10/01/23 doxepin 10 mg capsule 10 mg PO .hs 09/30/23 10/01/23 fluoxetine 10 mg capsule 10 mg PO DAILY 09/30/23 10/01/23 gabapentin 100 mg capsule 100 mg PO TID 09/30/23 10/01/23 gabapentin 300 mg capsule 600 mg PO Q8H 09/30/23 10/01/23 hydroxyzine pamoate 50 mg capsule 50 mg PO Q8H 09/30/23 10/01/23 olanzapine 20 mg tablet 20 mg PO BEDTIME 09/30/23 10/01/23 omega-3 acid ethyl esters 1 gram 2 cap PO BID 09/30/23 10/01/23 capsule omeprazole 20 mg capsule,delayed 20 mg PO DAILY 09/30/23 10/01/23 release buspirone 10 mg tablet 10 mg PO TID 10/01/23 10/01/23 melatonin 3 mg tablet 3 mg PO BEDTIME 10/01/23 10/01/23 viloxazine 200 mg capsule,extended 400 mg PO BEDTIME 10/01/23 10/01/23 release 24 hr (Qelbree) Allergies Allergy/AdvReac Type Severity Reaction Status Date / Time azithromycin Allergy Intermediate Rash Verified 01/10/25 10:11 codeine Allergy Intermediate Rash Verified 01/10/25 10:11 Penicillins Allergy Intermediate Rash Verified 01/10/25 10:11 Sulfa (Sulfonamide Allergy Intermediate Rash Verified 01/10/25 10:11 Antibiotics) Opioid HPI Opioid Management Most Recent Opioid Data: Ur Phencyclidine Scrn, (NEGATIVE) Negative 09/30/23, 23:15 Review of Systems ROS Narrative A ten point review of systems is negative except as noted above. PFSH PFSH Medical History Anxiety ?F41.9 - Anxiety disorder, unspecified (ICD-10) Bipolar 1 disorder ?F31.9 - Bipolar disorder, unspecified (ICD-10) Social History Within the past year, how often did you have a drink containing alcohol: 4 or more times a week Within the past year, how many standard drinks containing alcohol did you have on a typical day: 7 to 9 Within the past year, how often did you have six or more drinks on one occasion: daily or almost daily Total score: 10 Score interpretation: A score of 4 or more indicates drinking is likely to affect patient's safety. Smoking status: Current every day smoker Non-prescribed substance use: cannabis (any form) Highest level of school completed/degree received: some college, no degree Little interest or pleasure in doing things: not at all Feeling down, depressed, or hopeless: not at all Exam Narrative Exam Narrative: Nurses note and vital signs reviewed and patient is not hypoxic. General: The patient appears well and in no apparent distress. Patient is resting comfortably on cart. Skin: Warm, dry, no pallor noted. There is no rash noted. Head: Normocephalic, atraumatic Eye: Normal conjunctiva, no drainage Ears, Nose, Mouth, and Throat: oral mucosa is moist. Nares patent. Cardiovascular: Regular Rate and Rhythm Respiratory: Patient is in no distress, no accessory muscle use, lungs are clear to auscultation, no wheezing, rales or rhonchi Back: non-tender GI: Soft and nontender, no bruising Musculoskeletal: He has bruising and some swelling at the left knee but knee has good range of motion. He has significant bruising and hematoma at the left shoulder but his shoulder has full range of motion in the left elbow is nontender. He also has bruising in the left upper chest just below the clavicle. No crepitus. Neurological: A&O, normal speech Psychiatric: Cooperative Constitutional Vital Signs, click to edit/add: Last Vital Signs Temp 98.2 F 01/10/25 10:12 Pulse 78 01/10/25 10:12 Resp 18 01/10/25 10:12 BP 96/69 01/10/25 10:12 Pulse Ox 94 L 01/10/25 10:12 O2 Del Method Room Air 01/10/25 10:12 Course Vital Signs Vital signs: Vital Signs Temperature 98.2 F 01/10/25 10:12 Pulse Rate 78 01/10/25 10:12 Respiratory Rate 18 01/10/25 10:12 Blood Pressure 96/69 01/10/25 10:12 Pulse Oximetry 94 L 01/10/25 10:12 Oxygen Delivery Method Room Air 01/10/25 10:12 Temperature 98.2 F 01/10/25 10:12 Pulse Rate 78 01/10/25 10:12 Respiratory Rate 18 01/10/25 10:12 Blood Pressure 96/69 01/10/25 10:12 Pulse Oximetry 94 L 01/10/25 10:12 Oxygen Delivery Method Room Air 01/10/25 10:12 Medical Decision Making MDM Narrative Medical decision making narrative: X-rays are all negative per radiologist. He was recommended Tylenol. Treatment diagnosis and follow-up were discussed with the patient. Imaging Data Chest x-ray, knee x-ray, shoulder x-ray: Radiologist's impression: Chest x-ray: No acute pulmonary disease Left knee x-ray: Prepatellar soft tissue edema without foreign body or air X-ray left shoulder: No fracture or dislocation Discharge Plan Discharge Chief Complaint: Fall Clinical Impression: Contusion of multiple sites Patient Disposition: Home, Self-Care Time of Disposition Decision: 15:05 Condition: Good Mode of Transportation: Private Vehicle Prescriptions / Home Meds: No Action hydroxyzine pamoate 50 mg capsule 50 mg PO Q8H doxepin 10 mg capsule 10 mg PO .hs clonidine HCl 0.2 mg tablet 0.2 mg PO BEDTIME fluoxetine 10 mg capsule 10 mg PO DAILY gabapentin 300 mg capsule 600 mg PO Q8H omeprazole 20 mg capsule,delayed release(DR/EC) 20 mg PO DAILY gabapentin 100 mg capsule 100 mg PO TID olanzapine 20 mg tablet 20 mg PO BEDTIME omega-3 acid ethyl esters 1 gram capsule 2 cap PO BID buspirone 10 mg tablet 10 mg PO TID melatonin 3 mg tablet 3 mg PO BEDTIME Qelbree 200 mg capsule,extended release 24hr 400 mg PO BEDTIME Print Language: Peruvian Instructions: Contusion in Adults (ED), Hematoma (ED) Additional Instructions: Tylenol for pain. Use ice to reduce swelling. Referrals: JUANITA KAYE [Primary Care Provider, Family Practice] - 1 week
== END 2025-01-10 15:13 | disposition home or self-care (01) ==
PROVIDERS: Emergency Provider Emergency Medicine; PCP Family Medicine
DX: S80.02XA Contusion of left knee, initial encounter (principal); S40.012A Contusion of left shoulder, initial encounter; S20.212A Contusion of left front wall of thorax, initial encounter; W19.XXXA Unspecified fall, initial encounter; Z79.01 Long term (current) use of anticoagulants; I26.99 Other pulmonary embolism without acute cor pulmonale; F17.200 Nicotine dependence, unspecified, uncomplicated
CPT/HCPCS: 71045; 73030; 73562; 99284

== ENCOUNTER 2025-02-15 07:32 | Outpatient (OUT) | payer OTHER, SELFPAY ==
[2025-02-15 08:30] LABS: Estimated Average Glucose 128 mg/dL; Glycohemoglobin A1C 6.1 % (4.5-6.2)
[2025-02-15 08:34] LABS: Chol HDL Ratio 9.8; Cholesterol 254 mg/dL (<=200); HDL Cholesterol 26 mg/dL (40-60); Triglycerides 389 mg/dL (<=150); VLDL CHOLESTEROL 77.8 mg/dL
== END 2025-02-15 07:33 | disposition home or self-care (01) ==
DX: Z13.6 Encounter for screening for cardiovascular disorders (principal); Z13.1 Encounter for screening for diabetes mellitus; Z11.4 Encounter for screening for human immunodeficiency virus [HIV]
CPT/HCPCS: 36415; 80061; 83036

== ENCOUNTER 2025-02-15 07:40 | Outpatient (OUT) | payer OTHER, SELFPAY ==
--- OUTSIDE RECORDS SUMMARY | 2024-12-23 11:37 | XMS_ITS | Continuity of Care Document ---
Author Organization [facility] Address [address] [place] [address] Phone Care Team Providers Care Tracing Lathe Set Up Operator Name Role Phone Ana Oakes Unavailable Unavailable Allergies, Adverse Reactions, Alerts Substance Reaction Status Criticality Penicillins Active No Information erythromycin base Active No Informa tion codeine Active No Information trimethoprim Active No Information sulfamethoxazole Active No Informat ion Procedures Procedure Date Acute Detox Warehouse Picker Acute Detox Warehouse Picker Acute Detox Warehouse Picker Acute Detox Warehouse Picker Acute Detox Warehouse Picker Intraoral-complete Series (bw) Comp Oral Eval New/estab Patient 2024 [employer] [facility] [place] Dis Dec DRUG TEST PRSMV DIR OPT OBS Acute Detox Warehouse Picker Acute Detox Warehouse Picker Advance Directives Directive Yes / No Effective Date File Name No Information Encounters Encounter Description Practice Location Reason(s) For Visit Diagnoses Date Provider Providers Copied on Encounter [facility], [address], [place], [id number], [place] tel:[phone] [facility] Detox No Information Champ Perez. [address], [place], [id number], [place]. tel:[phone] [facility], [address], [place], [id number], [place] tel:[phone] [facility] Detox No Information Champ Perez. [address], [place], [id number], [place]. tel:[phone] [facility], [address], [place], [id number], [place] tel:[phone] [facility] Detox No Information Klidas Ana. [address], [place], [id number], [place]. tel:[phone] [facility], [address], [place], [id number], [place] tel:[phone] [facility] Det[facility] No Information Kelly Praveen. [address] [place], [address], [place]. tel:[phone] [facility], [address], [place], [id number], [place] tel:[phone] [facility] Detox No Information Klidas Ana. [address], [place], [id number], [place]. tel:[phone] [facility], [address] [place] [address], [id number], [place] tel:[phone] [facility] (chief complaint) Encounter for screening for dental disorders Wesley Alonso. [address] [place], [place], [id number], [place]. tel:[phone] [facility], [address], [place], [id number], [place] tel:[phone] [facility] Detox No Information Klidas Ana. [address], [place], [id number], [place]. tel:[phone] [facility], [address] [place] [address], [id number], [place] tel:[phone] [facility] Detox No Information Klidas Ana. [address], [place], [id number], [place]. tel:[phone] Family History Family Member Type Diagnosis Age At Onset No Information Payers Payer name Insurance type Covered alliance party ID Fide oneil(s) [employer] [id number] Social History Type Description Quantity Date Captured Comments Sex Male Smoking Status No Information Chief Complaint And Reason For Visit No Information Reason For Referral Reason For Referral No Information Plan Of Treatment Date Type Action Status Goal Hepatitis C screening. Due o n due Goal Influenza vaccine. Due on Ap r due Goal Tdap. Due on due Goal PRAPARE ASSESSMENT. Due on A due Goal Tdap Vaccine. Due on 2024 due Goal Unhealthy drug use screening . Due on due Goal Depression screening. Due on due Goal Lipid panel. Due on 025 due Appointment Vasyl Maldonado BOOKED History Of Present Illness Encounter Date Complaint History Of Prese nt Illness DN Functional Status Date Functional Assessmen t No Information Instructions Date Instruction Additional Infor mation No Information Assessments Type Assessment Date No Information Patient Care Teams Name Effective Dates (start - stop) Status Members No Information
--- OUTSIDE RECORDS SUMMARY | 2025-02-01 10:00 | XMS_ITS ---
Author Organization [facility] vices Address [address] [place], [place] [id number] Care Team Providers Care Arcade Attendant Name Role Phone Willian Dutta Primary Care Provider Martha Larson Unavailable [phone] Allergies Allergen (clinical drug ingredient) Drug/Non Drug Allergy documented on EMR Reaction Allergy Type Onset Date Status sulfamethoxazole / trimethoprim Bactrim Unknown Drug Allergy Active azithromycin Azithromycin Unknown Drug Allergy A ctive codeine Codeine Unknown Drug Allergy Active Penicillin Unknown Drug Allergy Active Reason For Referral Reason previous diagnosis o f sleep apnea Diagnosis 1 Obstructive sleep ap tiesha (G47.33) Referral Organization Main Referring Provider First Name Willian Referring Provider Last Name Luzmaria Referring Provider Speciality Physician Steam Table Associate Referred Provider [facility] Referred Provider Specialty Sleep Medici ne Referral Priority Routine REASON FOR VISIT wellness Medications Medication SIG (Take, Route, Fr equency, Duration) Notes Start Date End Date Status Fenofibrate 145 MG Take 1 tablet (145 m g) by mouth in the morning. Oral for 30 Days Active DULoxetine HCl 60 MG Oral for 30 Days Active amLODIPine Besylate Active Fenofibrate 145 MG Oral for 30 Days Active Folic Acid 1 MG TAKE 1 TABLET BY RANDI TH DAILY Oral for 30 Days Active Carvedilol 12.5 MG TAKE 1 TABLET BY RANDI TH WITH BREAKFAST then TAKE 1 TABLET BY MOUTH WITH evening meal Oral for 90 Days Active Carvedilol 12.5 MG Oral for 90 Days Active OLANZapine 5 MG TAKE 1 TABLET BY RANDI TH TWICE DAILY NEEDED Oral for 30 Days Active Eliquis Active Pantoprazole Sodium Active Gabapentin 400 MG Oral for 30 Days Active Social History Sex Assigned At : Social History Observation Description Sex Assigned At Male CAGE-AID Questionnaire (2017 Edition) Question Answer Notes Have you ever felt that you ought to cut down on your drinking or drug use? Yes patient ente red data Have people annoyed you by c riticizing your drinking or drug use? Yes patient entered data Have you ever felt bad or gu ilty about your drinking or drug use? Yes patient entered data Have you ever had a drink or used drugs first thing in the morning to steady your nerves or to get rid of a hangover? Yes patient entered data CAGE-AID Score 4 Interpretation Clinically Significant PRAPARE Question Answer Notes Date Completed/Updated: 02/01/2050 lianet nt entered data What is your current housing situation? I have housing patient entered data Are you worried about losing your housing? No patient entered data What is the highest level of school that you have finished? High school diploma or GED patient entered data What is your current work situation? Otherwise unemployed but not seeking work (ex. 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 No How often do you see or talk to people that you care about and feel close to? (For example: talking to friends on the phone, visiting friends or family, going to worship or club meetings) More than 5 times a week patient entered data How stressed are you? Stress is when someone feels tense, nervous, anxious, or can't sleep at night because their mind is troubled Not at all patient entered data In the past year have you sp ent more than 2 nights in a row in a intermediate, detention, senior care center, or juvenile correctional facility? No patient entered data Are you a refugee? No patient en tered data What country are you from? [place] brady rodriguez entered data Do you feel physically and emotionally safe where you currently live? Yes patient entered data In the past year, have you b een afraid of your partner or ex-partner? No patient entered data PRAPARE Score: 3 Problems Problem Type SNOMED Code ICD Code Onset Dates Problem Status W/U Status Risk Notes Problem Obstructive sleep apnea (G47.33) Active confirmed Vital Signs Temperature 98.2 degrees Fahrenheit 02/02/20 25 Weight 283 lbs 02/01/2025 Height 70 in 02/01/2025 BMI 40.6 kg/m2 02/01/2025 Blood pressure systolic 121 mm Hg 02/02/20 25 Blood pressure diastolic 84 mm Hg 025 Heart Rate 78 /min 02/01/2025 Oximetry 96 % 02/01/2025 Weight-kg 128.37 kg 02/01/2025 Height-cm 177.8 cm 02/01/2025 Jayda Wilson 02/01/2025 02 :09:14 PM EDT > Encounters Encounter Location Date Provider Diagnosis Main [address] [place], [place] [id number] 02/01/2025 Willian Dutta Encounter for wellne ss examination Z00.00 ; Screening for diabetes mellitus Z13.1 ; Encounter for screening for HIV Z11.4 ; Encounter for screening for cardiovascular disorders Z13.6 ; Dietary counseling Z71.3 ; Exercise counseling Z71.82 ; Encounter for screening for malignant neoplasm of colon Z12.11 ; BMI 40.0-44.9, adult Z68.41 and Obstructive sleep apnea G47.33 Assessments Encounter Date Diagnosis (ICD Code) Assessment Notes Treatment Notes Treatment Clinical Notes Section Notes 02/01/2025 Encounter for wellness examination (ICD-10 - Z00.00) Pt is here for wellness today. Overall health is okay. I advised to get baseline tests and pt is agreeable for that. I advised regular exercise and eating a balanced diet with focus on eating less fried and fatty foods and eating more fresh fruits and vegetable in an attempt to achieve and maintain a healthy BMI and PVU 02/01/2025 Screening for diabetes mellitus (ICD-10 - Z13.1) 02/01/2025 Encounter for screening for HIV (ICD-10 - Z11.4) 02/01/2025 Encounter for screening for cardiovascular disorders (ICD-10 - Z13.6) 02/01/2025 Dietary counseling (ICD-10 - Z71.3) 02/01/2025 Exercise counseling (ICD-10 - Z71.82) 02/01/2025 Encounter for screening for malignant neoplasm of colon (ICD-10 - Z12.11) ordered at [facility] last year 02/01/2025 BMI 40.0-44.9, adult (ICD-10 - Z68.41) 02/01/2025 Obstructive sleep apnea (ICD-10 - G47.33) Plan Of Treatment Treatment Notes Assessment Notes Encounter for wellness examination Pt is here for wellness today. Overall health is okay. I advised to get baseline tests and pt is agreeable for that. I advised regular exercise and eating a balanced diet with focus on eating less fried and fatty foods and eating more fresh fruits and vegetable in an attempt to achieve and maintain a healthy BMI and PVU Encounter for screening for malignant neoplasm of colon ordered at [facility] last year Pending Test Test Name Order Date LIPID PANEL WITH REFLEX TO DIRECT LDL COMPREHENSIVE METABOLIC PANEL WITH GFR 0 02/01/2025 HEMOGLOBIN A1C 02/01/2025 HIV-1 2 COMBO AG/AB 02/01/2025 UDS Colonoscopy 02/01/2025 Referrals Referral Date Details 02/01/2025 02/01/2025, previous diagnosis of sleep apnea, [facility] Next Appt Details Follow Up: 2 Weeks, Reason: dizziness Provider Name:Willian Dutta, 02/15/2025 10:00:00 AM, [address] [place] [address], [phone], Provider Name:Martha richards, 09/07/2025 10:45:00 AM, [address] [place] [address], [phone], Progress Notes * Keshia MALDONADOOB:1980 (44 yo M)Acc No.[id number]:02/01/2025 Medical Note Patient: Vasyl ROMAN Provider: Garrett Dutta :1980 A ge:44 Y S ex:Male Date:02/01/2025 Address:[address] [place] [address] [id number] Subjective: * Chief Complaints: * 1 . Wellness. * HPI: I nterim History: 44 old patient is here today for wellness visit. Last wellness visit was : last year Today patient denies any new complaints. Health has been good recently. Blood pressure today is: 121/84 Diabetic screening: A1c ordered Cholesterol screening: lipid screening Colon cancer screening: had colonoscopy at [facility], family history of colon cancer Depression screening: PHQ-9 Smoking status: denies Alcohol use: 9 days sober Drug use including marijuana: quit marijuana last april Dental screening: today Vision screening: earlier this year Diet: fast food more lately pre packaged stuff Exercise: has a treainer helpign him get back in shape walk and weight lift. D epression screening: PHQ-9 L ittle interest or pleasure in doing things?Not at all patient entered data F eeling down, depressed, or hopeless S everal days patient entered data T rouble falling or staying asleep, or sleeping too much M ore than half the days patient entered data F eeling tired or having little energy S ever patient entered data P oor appetite or overeating S ever patient entered data F eeling bad about yourself or that you are a failure, or have let yourself or your family down S everal patient entered data T rouble concentrating on things, such as reading the newspaper or watching television N early every day patient entered data M oving or speaking so slowly that other people could have noticed; or the opposite, being so fidgety or restless that you have been moving around a lot more than usual N ot at all patient entered data T houghts that you would be better off or of hurting yourself in some way N ot at all patient entered data T otal Score 9 I nterpretation M ild Depression * ROS: N egative except mentioned above in the HPI. * Medical History: H ashimotos thyroid disease, High Blood Pressure, GERD, Fatty Liver Disease, Bipolar, Depression. 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 Pt was put in coma. . * Social History: P [facility] and UDS Demographics: P [facility] Questions D o you have any barriers to learning? N one patient entered data W hat is your preferred method of learning??Talking in a small group patient entered data H ow often do you need to have someone help you read instructions? S ometimes patient entered data S exual History: F amily Planning A re you or your partner planning on becoming in the next year if not already ? N o W hat type of contraception are you using??Vasectomy D rugs/Alcohol/Caffeine: C AGE-AID Questionnaire (2018 Edition) H ave you ever felt that you ought to cut down on your drinking or drug use? Y es patient entered data H ave people annoyed you by criticizing your drinking or drug use? Y es patient entered data H ave you ever felt bad or guilty about your drinking or drug use? Y es patient entered data H ave you ever had a drink or used drugs first thing in the morning to steady your nerves or to get rid of a hangover? Y es patient entered data C AGE-AID Score 4 I nterpretation C linically Significant S ocial Determinants: P RAPARE D ate Completed/Updated: 0 02/01/2050 patient entered data W hat is your current housing situation? I have housing patient entered data A re you worried about losing your housing??No patient entered data W hat is the highest level of school that you have finished? H igh school diploma or GED patient entered data W hat is your current work situation? O therwise unemployed but not seeking work (ex. 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 N o H ow often do you see or talk to people that you care about and feel close to? (For example: talking to friends on the phone, visiting friends or family, going to worship or club meetings) M ore than 5 times a week patient entered data H ow stressed are you? Stress is when someone feels tense, nervous, anxious, or can't sleep at night because their mind is troubled N ot at all patient entered data I n the past year have you spent more than 2 nights in a row in a intermediate, detention, senior care center, or juvenile correctional facility? N o patient entered data A re you a refugee? N o patient entered data W hat country are you from[place] patient entered data D o you feel physically and emotionally safe where you currently live? Y es patient entered data I n the past year, have you been afraid of your partner or ex-partner? N o patient entered data P RAPARE Score: 3 * Medications: T aking Pantoprazole Sodium , Taking Eliquis , Taking amLODIPine Besylate , Taking DULoxetine HCl 60 MG Capsule Delayed Release Particles Oral , Taking Folic Acid 1 MG Tablet TAKE 1 TABLET BY MOUTH DAILY Oral , Taking Fenofibrate 145 MG Tablet Oral , Taking Fenofibrate 145 MG Tablet Take 1 tablet (145 mg) by mouth in the morning. Oral , Taking Gabapentin 400 MG Capsule Oral , Taking Carvedilol 12.5 MG Tablet TAKE 1 TABLET BY MOUTH WITH BREAKFAST then TAKE 1 TABLET BY MOUTH WITH evening meal Oral , Taking OLANZapine 5 MG Tablet TAKE 1 TABLET BY MOUTH TWICE DAILY NEEDED Oral , Taking Carvedilol 12.5 MG Tablet Oral * Allergies: P enicillin, Bactrim, Codeine, Azithromycin. Objective: * Vitals: T emp:98.2F, Wt:283lbs, Ht: 70 in, BMI:40.6Index, BP:121/84mm Hg, HR:78/min, Pain scale:01-10, Oxygen sat %:96%, Wt-k.37 kg, Ht-cm: 177.8 cm, Body Surface Area: 2.52. Jayda Wilson 02/01/2025 02:09:14 PM EDT >. * Examination: C QM Exceptions: Currently taking Aspirin: A spirin Use: N o G eneral Examination: General appearance: a lert, pleasant, well-nourished and in no acute distress. Head: n ormocephalic, atraumatic. Eyes: p upils equal, round, reactive to light and accommodation. Ears: a uditory canal clear, tympanic membrane intact and clear bilaterally. Nose: n rosalva patent , no lesions , sinuses nontender bilaterally. Oral cavity: t ongue is midline , palate normal , mucosa moist. Skin: s kin is warm and dry, with no rashes, good skin turgor and normal hair distribution. Heart: r egular rate and rhythm without murmurs, gallops, clicks or rubs. Lungs: c lear to auscultation bilaterally, with good air movement and no rales, rhonchi or wheezes. Extremities: n ormal extremity with no clubbing, cyanosis or edema , full range of motion. Psych: a lert and oriented x 3 , cooperative with exam , maintains good eye contact , normal affect / mood , speech is clear and coherent. ? Assessment: * Assessment: 1. E ncounter for wellness examination - Z00.00 (Primary) 2 . S creening for diabetes mellitus - Z13.1 3 . E ncounter for screening for HIV - Z11.4 ? 4 . E ncounter for screening for cardiovascular disorders - Z13.6 5 . Dietary counseling - Z71.3 6 . E xercise counseling - Z71.82 ?7. B CA 40.0-44.9, adult - Z68.41 8 . E ncounter for screening for malignant neoplasm of colon - Z12.11 9 . O bstructive sleep apnea - G47.33 ? Plan: * Treatment: 2. S creening for diabetes mellitus L AB: HEMOGLOBIN A1C 3. E ncounter for screening for HIV L AB: HIV-1 2 COMBO AG/AB 4. E ncounter for screening for cardiovascular disorders L AB: LIPID PANEL WITH REFLEX TO DIRECT LDL L AB: COMPREHENSIVE METABOLIC PANEL WITH GFR 5. E ncounter for screening for malignant neoplasm of colon I maging: UDS Colonoscopy Notes: ordered at [facility] last year??6.?Obstructive sleep apnea? Referral To: [facility]??Sleep Medicine ?Reason:previousdiagnosis of sleep apnea * Procedure Codes: 1 036F TOBACCO NON-USER, 1036F TOBACCO NON-USER, 3079F HTN DIAST BP = 80-89, 3074F HTN SYST BP < 130 * Preventive Medicine: Counseling: C are goal follow-up plan: Nutrition/Dietary Counseling provided?Yes BMI management provided Y es * Follow Up: 2 Weeks (Reason: dizziness) * Billing Information: * Visit Code: 46661 1st Compre Prev Med E/M New Pt 40-64. * Procedure Codes: 1036F TOBACCO NON-USER. 1036F TOBACCO NON-USER. 3079F HTN DIAST BP = 80-89. 3074F HTN SYST BP < 130. * Sign off status: Completed true * Provider: Garrett Dutta Date: 02/01/2025 Generated for Angelic jackson/Gaincarlo/Tr on: 02/15/2025 07:45 AM EDT History and Physical Notes * HPI (History of Present Illness) Category Sub-Category Detail Notes Category Not es Depression screening PHQ-9 Little inte rest or pleasure in doing things: Not at all patient entered data Feeling down, depressed, or hopeless: Se veral days patient entered data Trouble falling or staying a sleep, or sleeping too much: More than half the days patient entered data Feeling tired or having little energy: S everal days patient entered data Poor appetite or overeating: Several day s patient entered data Feeling bad about yourself o r that you are a failure, or have let yourself or your family down: Several days patient entered data Trouble concentrating on thi ngs, such as reading the newspaper or watching television: Nearly every day patient entered data Moving or speaking so slowly that other people could have noticed; or the opposite, being so fidgety or restless that you have been moving around a lot more than usual: Not at all patient entered data Thoughts that you would be b saba off or of hurting yourself in some way: Not at all patient entered data Total Score: 9 Interpretation: Mild Depression Examination Category Sub-Category Detail Notes Category Not es General Examination General appearance: alert, p leasant, well-nourished and in no acute distress Head: normocephalic, atrau matic Eyes: pupils equal, round, reactive to light and accommodation Ears: auditory canal clear , tympanic membrane intact and clear bilaterally Nose: nares patent , no le sions , sinuses nontender bilaterally Heart: regular rate and rhy thm without murmurs, gallops, clicks or rubs Lungs: clear to auscultatio n bilaterally, with good air movement and no rales, rhonchi or wheezes Skin: skin is warm and dry , with no rashes, good skin turgor and normal hair distribution Extremities: normal extremity wit h no clubbing, cyanosis or edema , full range of motion Psych: alert and oriented x 3 , cooperative with exam , maintains good eye contact , normal affect / mood , speech is clear and coherent Oral cavity: tongue is midline , palate normal , mucosa moist CQM Exceptions Currently taking Aspirin: Aspirin Use:: No Consultation Request Notes Referral Date Referring Provider Referred Provider Not es 02/01/20[facility], previous diagnosis of sleep apnea
--- OUTSIDE RECORDS SUMMARY | 2025-02-15 07:45 | XMS_ITS | Encounter Summary ---
Author Organization [facility] Address [id number] [address] [place] [address] Care Team Providers Care Director Of Operations Home Health Name Role Phone KevinShakeel rollins Primary Care Provider [phone] Encounter Details Date Type Department Care Team (Late st Contact Info) Description 10/10/2023 Orders Only [facility] Internal Medicine - Family Medicine [address] [place] [address] External, Scanning Provider Social History Tobacco Use Types Packs/Day Years Used Date Smoking Tobacco: Never Smokeless Tobacco: Never Alcohol Use Standard Drinks/Week Comments Not Currently 42 (1 standard drink = 0.6 oz pu re alcohol) not currently drinking [employer] Utilities Answer Date Recorded In the past 12 months has [employer], gas, oil, or water [employer] threatened to shut off services in your home? No 09/03/2023 Social Connection and Isolat ion Panel [NHANES] Answer Date Recorded In a typical week, how many times do you talk on the phone with family, friends, or neighbors? More than three times a week 11/19/2022 How often do you get togethe r with friends or relatives? Twice a week 11/19/2022 How often do you attend chur ch or methodist services? More than 4 times per year 11/19/2022 Do you belong to any clubs o r organizations such as jainism groups, unions, fraternal or athletic groups, or school groups? Yes 11/19/2022 How often do you attend meet ings of the clubs or organizations you belong to? Never 11/19/2022 Are you , , di vorced, , never , or living with a partner? 11/19/2022 AUDIT-C Answer Date Recorded Q1: How often do you have a drink containing alcohol? Never 09/03/2023 Q2: How many drinks containi ng alcohol do you have on a typical day when you are drinking? Patient does not drink Q3: How often do you have si x or more drinks on one occasion? Never 09/03/2023 Overall Financial Resource Strain (CARDIA) Answe r Date Recorded How hard is it for you to pa y for the very basics like food, housing, medical care, and heating? Not hard at all 11/19/2022 PHQ-2 Answer Date Recorded Total Score 7 09/03/2023 [facility] - Occupational Stress Questionnaire Answer Date Recorded Do you feel stress - tense, restless, nervous, or anxious, or unable to sleep at night because your mind is troubled all the time - these days? Not at all 11/19/2022 Exercise Vital Sign Answer Date Recorde d On average, how many days pe r week do you engage in moderate to strenuous exercise (like a brisk walk)? 0 days 11/19/2022 On average, how many minutes do you engage in exercise at this level? 0 min 11/19/2022 PRAPARE - Transportation Answer Date Re corded In the past 12 months, has l ack of transportation kept you from medical appointments or from getting medications? No 11/01 In the past 12 months, has l ack of transportation kept you from meetings, work, or from getting things needed for daily living? No 11/19/2022 Housing Instability Answer Date Recorde d Are you worried or concerned that in the next two months you may not have stable housing that you own, rent or stay in as a part of a household? No 11/19/2022 Childcare Answer Date Recorded Do problems getting child ca re make it difficult for you to work or study? No 11/19/2022 Employment Answer Date Recorded Do you need help finding a [facility] career center and/or a training program? No 11/19/2022 Hunger Screening Answer Date Recorded Within the past 12 months we worried whether our food would run out before we got money to buy more. Never True 09/03/2023 Within the past 12 months th e food we bought just didn't last and we didn't have money to get more. Never True 09/03/2023 Purpose - Life Answer Date Recorded I have a purpose and direction in my life. Stron gly Agree 11/19/2022 Sex and Gender Information Value Date Recorded Sex Assigned at Not on file Legal Sex Male 11:29 AM EDT Gender Identity Not on file Sexual Orientation Not on file documented as of this encounter Plan of Treatment Not on file documented as of this encounter Visit Diagnoses Not on filedocumented in this encounter Additional Health Concerns Assessment Noted Time PHQ-9 Depression Total Score: 7 09/03/19 24 1:55 PM EST documented as of this encounter Care Teams Director Of Operations Home Health Relationship Specialty Start Date End Date Shakeel Guallpa DO [address] [facility] [place] [address] PCP - General Family Medicine 05/14/23 documented as of this encounter
--- OUTSIDE RECORDS SUMMARY | 2025-02-15 07:45 | XMS_ITS | Encounter Summary ---
Author Organization [facility] Sys tem Address [facility] [id number] [address] [place] [address] Care Team Providers Care Machine Technician Name Role Phone KevinShakeel rollins Primary Care Provider [phone] Encounter Details Date Type Department Care Team (Late st Contact Info) Description 10/24/2023 Orders Only [facility] - Family Medicine [address] [place] [address] External, Scanning Provider Social History Tobacco Use Types Packs/Day Years Used Date Smoking Tobacco: Never Smokeless Tobacco: Never Alcohol Use Standard Drinks/Week Comments Not Currently 42 (1 standard drink = 0.6 oz pu re alcohol) not currently drinking [employer] Utilities Answer Date Recorded In the past 12 months has [employer], gas, oil, or water [employer] threatened to shut off services in your [...] often do you attend chur ch or yarsani services? More than 4 times per year 11/19/2022 Do you belong to any clubs o r organizations such as bahai groups, unions, fraternal or athletic groups, or [...] Answer Date Recorded Total Score 7 09/03/2023 [facility] Occupat ional Health - Occupational Stress [...] Recorded Do you need help finding a [facility] career center and/or a training program? No [...] on file documented as of this encounter Procedures Procedure Name Priority Date/Time Associated Diagnosis Comments XR CHEST 1 VW Routine 10/24/2023 3:55 PM EST XR CHEST 1 VW Routine 10/23/2023 3:54 PM EST documented in this encounter Results * X-ray chest 1 view (10/24/2023 3:55 PM EST) Anatomical Region Laterality Modality Body, Chest N/A Computed Radiogr aphy us Scanning Provider External IMG DIAGNOSTIC IMAGIN G ORDERABLES Final Result * X-ray chest 1 view (10/23/2023 3:54 PM EST) Anatomical Region Laterality Modality Body, Chest N/A Computed Radiogr aphy us Scanning Provider External IMG DIAGNOSTIC IMAGIN G ORDERABLES Final Result documented in this encounter Visit Diagnoses Not on filedocumented in this encounter Additional Health Concerns Assessment Noted Time PHQ-9 Depression Total Score: 7 09/03/19 24 1:55 PM EST documented as of this encounter Care Teams Machine Technician Relationship Specialty Start Date End Date Shakeel Guallpa DO [address] [facility], [place] [address] PCP - General Family Medicine 05/14/23 documented as of this encounter
--- OUTSIDE RECORDS SUMMARY | 2025-02-15 07:45 | XMS_ITS | Encounter Summary ---
Author Organization [facility] Sys tem Address [facility] [id number] [address] [place] [address] Care Team Providers Care Registered Nurses Name Role Phone KevinShakeel rollins Primary Care Provider [phone] Encounter Details Date Type Department Care Team (Late st Contact Info) Description 10/22/2023 Orders Only [facility] - Family Medicine [address] [place] [address] External, Scanning Provider Social History Tobacco Use Types Packs/Day Years Used Date Smoking Tobacco: Never Smokeless Tobacco: Never Alcohol Use Standard Drinks/Week Comments Not Currently 42 (1 standard drink = 0.6 oz pu re alcohol) not currently drinking [employer] Utilities Answer Date Recorded In the past 12 months has [employer], gas, oil, or water [employer] threatened to shut off services in your [...] often do you attend chur ch or mandaeism services? More than 4 times per year 11/19/2022 Do you belong to any clubs o r organizations such as latter day groups, unions, fraternal or athletic groups, or [...] Answer Date Recorded Total Score 7 09/03/2023 [facility] of Occupat ional Health - Occupational [...] Recorded Do you need help finding a [facility] career center and/or a training program? No [...] Diagnosis Comments XR CHEST 1 VW Routine 10/22/2023 2:52 PM EST XR CHEST 1 VW Routine 10/21/2023 2:54 PM EST XR CHEST 1 VW Routine 10/20/2023 2:51 PM EST XR CHEST 1 VW Routine 10/19/2023 2:53 PM EST documented in this encounter Results * X-ray chest 1 view (10/22/2023 2:52 PM EST) Anatomical Region Laterality Modality Body, Chest N/A Computed Radiogr aphy us Scanning Provider External IMG DIAGNOSTIC IMAGIN G ORDERABLES Final Result * X-ray chest 1 view (10/21/2023 2:54 PM EST) Anatomical Region Laterality Modality Body, Chest N/A Computed Radiogr aphy us Scanning Provider External IMG DIAGNOSTIC IMAGIN G ORDERABLES Final Result * X-ray chest 1 view (10/20/2023 2:51 PM EST) Anatomical Region Laterality Modality Body, Chest N/A Computed Radiogr aphy us Scanning Provider External IMG DIAGNOSTIC IMAGIN G ORDERABLES Final Result * X-ray chest 1 view (10/19/2023 2:53 PM EST) Anatomical Region Laterality Modality Body, Chest N/A Computed Radiogr aphy us Scanning Provider External IMG DIAGNOSTIC IMAGIN G ORDERABLES Final Result documented in this encounter Visit Diagnoses Not on filedocumented in this encounter Additional Health Concerns Assessment Noted Time PHQ-9 Depression Total Score: 7 09/03/19 24 1:55 PM EST documented as of this encounter Care Teams Registered Nurses Relationship Specialty Start Date End Date Shakeel Guallpa DO [address] [facility], [place] [address] PCP - General Family Medicine 05/14/23 documented as of this encounter
--- OUTSIDE RECORDS SUMMARY | 2025-02-15 07:45 | XMS_ITS | Encounter Summary ---
Author Organization [facility] Sys tem Address [facility] [id number] [address] [place] [address] Care Team Providers Care Glass Wool Blanket Machine Feeder Name Role Phone KevinShakeel rollins Primary Care Provider [phone] Encounter Details Date Type Department Care Team (Late st Contact Info) Description 10/28/2023 Orders Only [facility] - Family Medicine [address] [place] [address] External, Scanning Provider Social History Tobacco Use Types Packs/Day Years Used Date Smoking Tobacco: Never Smokeless Tobacco: Never Alcohol Use Standard Drinks/Week Comments Not Currently 42 (1 standard drink = 0.6 oz pu re alcohol) not currently drinking [employer] Utilities Answer Date Recorded In the past 12 months has [employer], gas, oil, or water [employer] threatened to shut off services in your [...] often do you attend chur ch or taoism services? More than 4 times per year 11/19/2022 Do you belong to any clubs o r organizations such as restorationist groups, unions, fraternal or athletic groups, or [...] Answer Date Recorded Total Score 7 09/03/2023 [facility] Occupat ional Health - Occupational Stress [...] Recorded Do you need help finding a [facility] career center and/or a training [...] Diagnosis Comments XR CHEST 1 VW Routine 10/28/2023 4:20 PM EST XR CHEST 1 VW Routine 10/27/2023 4:19 PM EST XR CHEST 1 VW Routine 10/26/2023 4:23 PM EST XR CHEST 1 VW Routine 10/25/2023 4:21 PM EST XR CHEST 1 VW Routine 10/25/2023 4:21 PM EST documented in this encounter Results * X-ray chest 1 view (10/28/2023 4:20 PM EST) Anatomical Region Laterality Modality Body, Chest N/A Computed Radiogr aphy us Scanning Provider External IMG DIAGNOSTIC IMAGIN G ORDERABLES Final Result * X-ray chest 1 view (10/27/2023 4:19 PM EST) Anatomical Region Laterality Modality Body, Chest N/A Computed Radiogr aphy us Scanning Provider External IMG DIAGNOSTIC IMAGIN G ORDERABLES Final Result * X-ray chest 1 view (10/26/2023 4:23 PM EST) Anatomical Region Laterality Modality Body, Chest N/A Computed Radiogr aphy us Scanning Provider External IMG DIAGNOSTIC IMAGIN G ORDERABLES Final Result * X-ray chest 1 view (10/25/2023 4:21 PM EST) Anatomical Region Laterality Modality Body, Chest N/A Computed Radiogr aphy us Scanning Provider External IMG DIAGNOSTIC IMAGIN G ORDERABLES Final Result * X-ray chest 1 view (10/25/2023 4:21 PM EST) Anatomical Region Laterality Modality Body, Chest N/A Computed Radiogr aphy us Scanning Provider External IMG DIAGNOSTIC IMAGIN G ORDERABLES Final Result documented in this encounter Visit Diagnoses Not on filedocumented in this encounter Additional Health Concerns Assessment Noted Time PHQ-9 Depression Total Score: 7 09/03/19 24 1:55 PM EST documented as of this encounter Care Teams Glass Wool Blanket Machine Feeder Relationship Specialty Start Date End Date Shakeel Guallpa DO [address] [facility], [place] [address] PCP - General Family Medicine 05/14/23 documented as of this encounter
--- OUTSIDE RECORDS SUMMARY | 2025-02-15 07:45 | XMS_ITS | Encounter Summary ---
Author Organization [facility] Sys tem Address [facility] [id number] [address] [place] [address] Care Team Providers Care Pre Press Manager Name Role Phone KevinShakeel rollins Primary Care Provider [phone] Encounter Details Date Type Department Care Team (Late st Contact Info) Description 11/06/2023 Orders Only [facility] - Family Medicine [address] [place] [address] External, Scanning Provider Social History Tobacco Use Types Packs/Day Years Used Date Smoking Tobacco: Never Smokeless Tobacco: Never Alcohol Use Standard Drinks/Week Comments Not Currently 42 (1 standard drink = 0.6 oz pu re alcohol) not currently drinking [employer] Utilities Answer Date Recorded In the past 12 months has [employer], gas, oil, or water [employer] threatened to shut off services in your [...] often do you attend chur ch or tenriism services? More than 4 times per year 11/19/2022 Do you belong to any clubs o r organizations such as worship groups, unions, fraternal or athletic groups, or [...] Answer Date Recorded Total Score 7 09/03/2023 [facility] Occupat ional Health - Occupational [...] Recorded Do you need help finding a [facility] career center and/or a training program? [...] Diagnosis Comments XR CHEST 1 VW Routine 11/06/2023 2:18 PM EST documented in this encounter Results * X-ray chest 1 view (11/06/2023 2:18 PM EST) Anatomical Region Laterality Modality Body, Chest N/A Computed Radiogr aphy us Scanning Provider External IMG DIAGNOSTIC IMAGIN G ORDERABLES Final Result documented in this encounter Visit Diagnoses Not on filedocumented in this encounter Additional Health Concerns Assessment Noted Time PHQ-9 Depression Total Score: 7 09/03/19 24 1:55 PM EST documented as of this encounter Care Teams Pre Press Manager Relationship Specialty Start Date End Date Shaekel Guallpa DO [address] [facility], [place] [address] PCP - General Family Medicine 05/14/23 documented as of this encounter
--- OUTSIDE RECORDS SUMMARY | 2025-02-15 07:45 | XMS_ITS | Encounter Summary ---
Author Organization [facility] Sys tem Address [facility] [id number] [address] [place] [address] Care Team Providers Care Restaurant Line Server Name Role Phone KevinShaekel rollins Primary Care Provider [phone] Encounter Details Date Type Department Care Team (Late st Contact Info) Description 10/15/2023 Orders Only [facility] - Family Medicine [address] [place] [address] External, Scanning Provider Social History Tobacco Use Types Packs/Day Years Used Date Smoking Tobacco: Never Smokeless Tobacco: Never Alcohol Use Standard Drinks/Week Comments Not Currently 42 (1 standard drink = 0.6 oz pu re alcohol) not currently drinking [employer] Utilities Answer Date Recorded In the past 12 months has [employer], gas, oil, or water [employer] threatened to shut off services in your [...] often do you attend chur ch or church services? More than 4 times per year 11/19/2022 Do you belong to any clubs o r organizations such as gnosticist groups, unions, fraternal or athletic groups, or [...] Answer Date Recorded Total Score 7 09/03/2023 [facility] of Occupat ional Health - Occupational [...] Recorded Do you need help finding a [facility] career center and/or a training [...] Diagnosis Comments XR CHEST 1 VW Routine 10/15/2023 2:22 PM EST documented in this encounter Results * X-ray chest 1 view (10/15/2023 2:22 PM EST) Anatomical Region Laterality Modality Body, Chest N/A Computed Radiogr aphy us Scanning Provider External IMG DIAGNOSTIC IMAGIN G ORDERABLES Final Result documented in this encounter Visit Diagnoses Not on filedocumented in this encounter Additional Health Concerns Assessment Noted Time PHQ-9 Depression Total Score: 7 09/03/19 24 1:55 PM EST documented as of this encounter Care Teams Restaurant Line Server Relationship Specialty Start Date End Date Shakeel Guallpa DO [address] [facility], [place] [address] PCP - General Family Medicine 05/14/23 documented as of this encounter
--- OUTSIDE RECORDS SUMMARY | 2025-02-15 07:45 | XMS_ITS | Encounter Summary ---
Author Organization [facility] Sys tem Address [facility] [id number] [address] [place] [address] Care Team Providers Care Skiff Operator Name Role Phone KevinShakeel rollins Primary Care Provider [phone] Encounter Details Date Type Department Care Team (Late st Contact Info) Description 10/30/2023 Orders Only [facility] - Family Medicine [address] [place] [address] External, Scanning Provider Social History Tobacco Use Types Packs/Day Years Used Date Smoking Tobacco: Never Smokeless Tobacco: Never Alcohol Use Standard Drinks/Week Comments Not Currently 42 (1 standard drink = 0.6 oz pu re alcohol) not currently drinking [employer] Utilities Answer Date Recorded In the past 12 months has [employer], gas, oil, or water [employer] threatened to shut off services in your [...] often do you attend chur ch or mandaen services? More than 4 times per year [...] Answer Date Recorded Total Score 7 09/03/2023 [facility] of Occupat ional Health - Occupational [...] Recorded Do you need help finding a [facility] career center and/or a training program? No [...] Diagnosis Comments XR CHEST 1 VW Routine 10/29/2023 9:10 AM EST documented in this encounter Results * X-ray chest 1 view (10/29/2023 9:10 AM EST) Anatomical Region Laterality Modality Body, Chest N/A Computed Radiogr aphy us Scanning Provider External IMG DIAGNOSTIC IMAGIN G ORDERABLES Final Result documented in this encounter Visit Diagnoses Not on filedocumented in this encounter Additional Health Concerns Assessment Noted Time PHQ-9 Depression Total Score: 7 09/03/19 24 1:55 PM EST documented as of this encounter Care Teams Skiff Operator Relationship Specialty Start Date End Date Shakeel Guallpa DO [address] [facility], [place] [address] PCP - General Family Medicine 05/14/23 documented as of this encounter
--- OUTSIDE RECORDS SUMMARY | 2025-02-15 07:45 | XMS_ITS | Encounter Summary ---
Author Organization [facility] Sys tem Address [facility] [id number] [address] [place] [address] Care Team Providers Care Tanning Wheel Operator Name Role Phone KevinShakeel rollins Primary Care Provider [phone] Encounter Details Date Type Department Care Team (Late st Contact Info) Description 11/04/2023 Orders Only [facility] - Family Medicine [address] [place] [address] External, Scanning Provider Social History Tobacco Use Types Packs/Day Years Used Date Smoking Tobacco: Never Smokeless Tobacco: Never Alcohol Use Standard Drinks/Week Comments Not Currently 42 (1 standard drink = 0.6 oz pu re alcohol) not currently drinking [employer] Utilities Answer Date Recorded In the past 12 months has [employer], gas, oil, or water [employer] threatened to shut off services in your [...] often do you attend chur ch or mormon services? More than 4 times per year 11/19/2022 Do you belong to any clubs o r organizations such as mosque groups, unions, fraternal or athletic groups, or [...] Recorded Total Score 7 09/03/2023 [facility] of Occupat ional Health - Occupational [...] Recorded Do you need help finding a [facility] career center and/or a training program? [...] Diagnosis Comments XR CHEST 1 VW Routine 11/03/2023 2:17 PM EST XR CHEST 1 VW Routine 11/02/2023 2:16 PM EST XR CHEST 1 VW Routine 11/02/2023 2:15 PM EST XR CHEST 1 VW Routine 11/01/2023 2:14 PM EST documented in this encounter Results * X-ray chest 1 view (11/03/2023 2:17 PM EST) Anatomical Region Laterality Modality Body, Chest N/A Computed Radiogr aphy us Scanning Provider External IMG DIAGNOSTIC IMAGIN G ORDERABLES Final Result * X-ray chest 1 view (11/02/2023 2:16 PM EST) Anatomical Region Laterality Modality Body, Chest N/A Computed Radiogr aphy us Scanning Provider External IMG DIAGNOSTIC IMAGIN G ORDERABLES Final Result * X-ray chest 1 view (11/02/2023 2:15 PM EST) Anatomical Region Laterality Modality Body, Chest N/A Computed Radiogr aphy us Scanning Provider External IMG DIAGNOSTIC IMAGIN G ORDERABLES Final Result * X-ray chest 1 view (11/01/2023 2:14 PM EST) Anatomical Region Laterality Modality Body, Chest N/A Computed Radiogr aphy us Scanning Provider External IMG DIAGNOSTIC IMAGIN G ORDERABLES Final Result documented in this encounter Visit Diagnoses Not on filedocumented in this encounter Additional Health Concerns Assessment Noted Time PHQ-9 Depression Total Score: 7 09/03/19 24 1:55 PM EST documented as of this encounter Care Teams Tanning Wheel Operator Relationship Specialty Start Date End Date Shakeel Guallpa DO [address] [facility] [place] [address] PCP - General Family Medicine 05/14/23 documented as of this encounter
--- OUTSIDE RECORDS SUMMARY | 2025-02-15 07:45 | XMS_ITS | Patient Health Record ---
Author Organization [facility] vices Address [address] [place], [place] [address] Care Team Providers Care Anode Adjuster Name Role Phone Willian Dutta Primary Care Provider [phone] Martha Larson Unavailable [phone] Allergies Allergen (clinical drug ingredient) Drug/Non Drug [...] Last Name Luzmaria Referring Provider Speciality Physician Packaging Line Attendant Referred Provider [facility] Referred Provider Specialty Sleep Medici ne Referral Priority Routine Medications Medication SIG (Take, Route, Fr equency, Duration) Notes Start Date End Date Status Fenofibrate 145 MG Take 1 tablet (145 m g) by mouth in the morning. Oral for 30 Days Active Carvedilol 12.5 MG TAKE 1 TABLET BY RANDI TH WITH BREAKFAST then TAKE 1 TABLET BY MOUTH WITH evening meal Oral for 90 Days Active Gabapentin 400 MG Oral for 30 Days Active Carvedilol 12.5 MG Oral for 90 Days Active OLANZapine 5 MG TAKE 1 TABLET BY RANDI TH TWICE DAILY NEEDED Oral for 30 Days Active Eliquis Active Pantoprazole Sodium Active DULoxetine HCl 60 MG Oral for 30 Days Active amLODIPine Besylate Active Fenofibrate 145 MG Oral for 30 Days Active Folic Acid 1 MG TAKE 1 TABLET BY RANDI TH DAILY Oral for 30 Days Active Social History Tobacco Use: Social History Observation Description Date Details (start date - stop date) Current Smoker NA - NA Sex Assigned At : Social History Observation Description Sex Assigned At Male CAGE-AID Questionnaire (2018 Edition) Question Answer Notes Have you ever [...] work (ex. 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 No How often do you see or talk to people that you care about and feel close to? (For example: talking to friends on the phone, visiting friends or family, going to sikh or club meetings) More than 5 times a week patient entered data How stressed are you? Stress is when someone feels tense, nervous, anxious, or can't sleep at night because their mind is troubled Not at all patient entered data In the past year have you sp ent more than 2 nights in a row in a senior living, mcc, fpc center, or juvenile correctional facility? No patient [...] No patient entered data PRAPARE Score: 3 Tobacco Control (Standard) Question Answer Notes Tobacco use: Current smoker Additional Findings: Tobacco non-user Current no nsmoker Problems Problem Type SNOMED Code ICD Code Onset Dates Problem Status W/U Status Risk Notes Problem Body mass index 40+ - morbidly obese (539673399) BMI 40.0-44.9, adult (Z68.41) Active confirmed Problem Obstructive sleep apnea (G47.33) Active confirmed Problem 259839399 Obesity (BMI 30-39.9) (E66.9) Active confirmed Vital Signs Heart Rate 78 /min 02/01/2025 Jayda Wilson 02/01/2025 02:09:14 PM EDT > Temperature 98.2 degrees Fahrenheit 02/01/2025 Jayda Manuel 02/01/2025 02:09:14 PM EDT > Oximetry 96 % 02/01/2025 Jayda Wilson 02/01/2025 02:09:14 PM EDT > Height-cm 177.8 cm 02/01/2025 Jayda Wilson 02/01/2025 02:09:14 PM EDT > Blood pressure diastolic 84 mm Hg 02/01/2025 Jayda Worthy 02/01/2025 02:09:14 PM EDT > Weight-kg 128.37 kg 02/01/2025 Jayda Wilson 02/01/2025 02:09:14 PM EDT > Height 70 in 02/01/2025 Jayda Wilson 02/01/2025 02:09:14 PM EDT > Blood pressure systolic 121 mm Hg 02/01/2025 Jayda Manuel 02/01/2025 02:09:14 PM EDT > Weight 283 lbs 02/01/2025 Jayda Wilson 02/01/2025 02:09:14 PM EDT > BMI 40.6 kg/m2 02/01/2025 Jayda Wilson 02/01/2025 02:09:14 PM EDT > Encounters Encounter Location Date Provider Diagnosis Dental Main [address] [place] [address] [id number] 11/09/2024 Martha Larson BMI 40.0-44.9, adult Z68.41 ; Dietary counseling Z71.3 ; Exercise counseling Z71.82 ; Encounter for screening for dental disorders Z13.84 ; Dental caries into dentine K02.62 and Encounter for dental examination and cleaning without abnormal findings Z01.20 Dental Main [address] [place] [address] [id number] 02/01/2025 Martha Larson Obesity (BMI 30-39.9 ) E66.9 ; Encounter for dental examination and cleaning without abnormal findings Z01.20 ; Dietary counseling Z71.3 and Exercise counseling Z71.[address] [place] [address] [id number] 02/01/2025 Willian Dutta Encounter for wellne ss [...] Treatment Notes Treatment Clinical Notes Section Notes 11/09/2024 BMI 40.0-44.9, adult (ICD-10 - Z68.41) 02/01/2025 Obesity (BMI 30-39.9) (ICD-10 - E66.9) 02/01/2025 Encounter for wellness examination (ICD-10 - [...] Screening for diabetes mellitus (ICD-10 - Z13.1) 11/09/2024 Dietary counseling (ICD-10 - Z71.3) 02/01/2025 Encounter for dental examination and cleaning without abnormal findings (ICD-10 - Z01.20) 02/01/2025 Dietary counseling (ICD-10 - Z71.3) 02/01/2025 Encounter for screening for HIV (ICD-10 - Z11.4) 11/09/2024 Exercise counseling (ICD-10 - Z71.82) 02/01/2025 Exercise counseling (ICD-10 - Z71.82) 11/09/2024 Encounter for screening for dental disorders (ICD-10 - Z13.84) 11/09/2024 Dental caries into dentine (ICD-10 - K02.62) 11/09/2024 Encounter for dental examination and cleaning without abnormal findings (ICD-10 - Z01.20) 02/01/2025 Encounter for screening for cardiovascular disorders (ICD-10 - Z13.6) 02/01/2025 Dietary counseling (ICD-10 - Z71.3) 02/01/2025 Exercise counseling (ICD-10 - Z71.82) 02/01/2025 BMI 40.0-44.9, adult (ICD-10 - Z68.41) 02/01/2025 Encounter for screening for malignant neoplasm of colon (ICD-10 - Z12.11) ordered at [facility] last year 02/01/2025 Obstructive sleep apnea (ICD-10 - G47.33) Plan Of Treatment Pending Test Test Name Order Date LIPID PANEL WITH REFLEX TO DIRECT LDL COMPREHENSIVE METABOLIC PANEL WITH GFR 0 02/01/2025 HEMOGLOBIN A1C 02/01/2025 HIV-1 2 COMBO AG/AB 02/01/2025 UDS Colonoscopy 02/01/2025 Next Appt Details Provider Name:Willian Dutta, 02/15/2025 10:00:00 AM, [address] [place] [address], [phone], Provider Name:Martha richards, 09/07/2025 10:45:00 AM, [address] [place] [address], [phone], Insurance Providers Payer Name Payer Address Payer Phone Subscriber Number Group Number Insured Name Patient Relationship to Insured Coverage Start Date Coverage End Date Maddi [facility] [address] [place] [address] [id number] Vasyl Maldonado Self - patient is the insured 2 Mallory Thurston [facility] [address] [address] [place] [address] [id number] Vasyl Maldonado Self - patient is the insured 2 Medicaid [facility] after [place] [address] [place] [address] [id number] Vasyl Maldonado Self - patient is the insured 2 DMedicaid CFC after [place] [employer] [address] [place], [place] [id number] Vasyl Maldonado Self - patient is the insured 2 Medical (General) History Medical History History ICD Code Hashimotos thyroid disease High Blood Pressure GERD Fatty Liver Disease Bipolar Depression Hospitalization History Reason Date(Month/Year) 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
--- OUTSIDE RECORDS SUMMARY | 2025-02-15 07:45 | XMS_ITS | Clinical Summary ---
Author Organization [facility] Address [address] [place] [address] Care Team Providers Care Health Education Director Name Role Phone Unavailable Primary Care Provider Unavailabl e Allergies Active Allergy Reactions Criticality Noted Date Comments Codeine Other (See Comments) 05/20/2018 Erythromycin Other (See Comments) 08/25/2021 Onabotulinumtoxina 12/11/2023 Penicillins Hives,Other (See Comments) Medium 05/20/2018 Sulfa Antibiotics Hives Medium 05/20/2018 Sulfamethoxazole-Trimethoprim Other (See Comments) 05/20/2018 Trimethoprim 09/29/2018 Medications DULoxetine (CYMBALTA) 30 MG capsule Take 1 capsule (30 mg total) by mouth in the morning. Active ARIPiprazole (ABILIFY) 5 MG tablet Take 1 tablet (5 mg total) by mouth in the morning. Active pantoprazole (PROTONIX) 40 MG EC/DR tablet Take 1 tablet (40 mg total) by mouth in the morning. Active folic acid (FOLVITE) 1 MG tablet Take 1 tablet (1 mg total) by mouth in the morning. Active divalproex (DEPAKOTE) [address] tablet Take 1 tablet (250 mg total) by mouth nightly. Active divalproex (DEPAKOTE) 500 MG tablet extended-releas e 24 hour Take 3 tablets (1,500 mg total) by mouth in the morning. Active cholecalciferol (VITAMIN D3) 125 MCG (5000 UT) tablet tablet 1 tablet (5,000 Units total) by PO/Per Tube route in the morning. 12/14/2023 Active multivitamin w/ minerals (THERA M PLUS) Tab/Cap tablet Take 1 each (1 tablet total) by mouth in the morning. 12/14/2023 Active thiamine 100 MG tablet Take 1 tablet (100 mg total) by mouth in the morning. 12/14/2023 Active Active Problems Problem Noted Date Diagnosed Date Cardiac arrest 11/19/2023 Cardiac tamponade 11/19/2023 Acute respiratory distress syndrome 11/19/2023 Acute respiratory failure with hypoxia Atrial fibrillation with rapid ventricular respo nse 11/19/2023 Metabolic encephalopathy 11/19/2023 Pneumonia 11/19/2023 Septicemia 11/19/2023 Pulmonary embolism 11/19/2023 Rhabdomyolysis 11/19/2023 Alcohol abuse 11/19/2023 Severe alcohol dependence 03/27/2023 Severe major depression 03/26/2023 Severe depressed bipolar I disorder 05/14/2019 Immunizations Immunization Administration Dates Next Due Pfizer SARS-CoV-2 Vaccination 05/03/2023 Social History Tobacco Use Types Packs/Day Years Used Date Smoking Tobacco: Never Smokeless Tobacco: Never Tobacco Cessation:Counseling Given: Not Answered Alcohol Use Standard Drinks/Week Comments Yes 0 (1 standard drink = 0.6 oz pur e alcohol) [facility] [place] of Occupat ional Health - Occupational Stress Questionnaire Answer Date Recorded Do you feel stress - tense, restless, nervous, or anxious, or unable to sleep at night because your mind is troubled all the time - these days? Only a little 12/13/2023 Domestic Abuse Assessment Answer Date R ecorded Do you feel safe in your relationships at home? Yes 11/20/2023 Physical Abuse Denies 11/20/2023 HRSN Domestic Abuse - Type of Abuse Not on file 11/20/2023 HRSN Domestic Abuse - Time Frame Not on file 11/20/2023 HRSN Domestic Abuse - Signs and Symptoms Not on file 11/20/2023 Verbal Abuse Denies 11/20/2023 HRSN Domestic Abuse - Reported To Not on file 11/20/[address] [facility] Transportation Source Answer Da te Recorded Has lack of transportation k ept you from medical appointments or from getting medications? No 12/12/2023 Has lack of transportation k ept you from meetings, work, or from getting things needed for daily living? No 12/12/2023 HRSN Depression PHQ-2 Answer Date Recor ded Feeling down, depressed, or hopeless 0 12/13/2023 Little interest or pleasure in doing things 0 12/13/2023 Sex and Gender Information Value Date Recorded Sex Assigned at Not on file Legal Sex Male 1:39 PM EDT Gender Identity Not on file Sexual Orientation Not on file Last Filed Vital Signs Vital Sign Reading Time Taken Comments Blood Pressure 128/74 12/13/2023 7:30 AM EDT Pulse 70 12/13/2023 7:30 AM EDT Temperature 36.4 C (97.6 F) 12/13/2023 7:30 AM EDT Respiratory Rate 20 12/13/2023 7:30 AM EDT Oxygen Saturation 95% 12/13/2023 7:30 AM EDT Inhaled Oxygen Concentration - - Weight 93 kg (205 lb) 12/13/2023 4:00 AM EDT Height 177.8 cm (5' 10 ) 11/20/2023 4:08 PM EDT Body Mass Index 29.41 11/20/2023 4:08 PM EDT Plan of Treatment Health Maintenance Due Date Last Done Comments CT Colonography 1978 Colonoscopy 1978 Colorectal Cancer Screening 1978 FIT-DNA (Cologuard) 1978 FIT 1978 FOBT 1978 Sigmoidoscopy 1978 Annual Visit Topic 1979 MMR Vaccines (1 of 1 - Standard series) 1979 Hepatitis C Screening 1996 DTaP/Tdap/Td Vaccines (3 - T d or Tdap) 05/14/2033 05/14/2023, 10/28/2008 Hepatitis A Vaccines Aged Out 01/21/2017, 07/02/2016 No longer eligible based on patient's age to complete this topic Hepatitis B Vaccines Completed 01/21/2017, 08/20/2016, 07/02/2016 HIB Vaccines Aged Out No longer eligi ble based on patient's age to complete this topic HPV Vaccines Aged Out No longer eligi ble based on patient's age to complete this topic IPV Vaccines Aged Out No longer eligi ble based on patient's age to complete this topic Meningococcal Vaccine Aged Out No mer jessenia eligible based on patient's age to complete this topic Pneumococcal Vaccine: Pediatrics (0 to 5 years) and At-Risk Patients (6 to 64 Years) Aged Out No longer eligible b ased on patient's age to complete this topic Additional Health Concerns Infection Onset Date 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 Yes
--- OUTSIDE RECORDS SUMMARY | 2025-02-15 07:45 | XMS_ITS | Encounter Summary ---
Author Organization [facility] Address [id number] [address] [place] [address] Care Team Providers Care Barrel Charrer Name Role Phone KevinShakeel rollins Primary Care Provider [phone] Encounter Details Date Type Department Care Team (Late st Contact Info) Description 10/31/2023 Orders Only [facility] - Family Medicine [address] [place] [address] External, Scanning Provider Social History Tobacco Use Types Packs/Day Years Used Date Smoking Tobacco: Never Smokeless Tobacco: Never Alcohol Use Standard Drinks/Week Comments Not Currently 42 (1 standard drink = 0.6 oz pu re alcohol) not currently drinking [employer] Utilities Answer Date Recorded In the past 12 months has [employer], gas, oil, or water [employer] threatened to shut off services in your [...] often do you attend chur ch or holiness services? More than 4 times per year 11/19/2022 Do you belong to any clubs o r organizations such as denominational groups, unions, fraternal or athletic groups, or [...] Answer Date Recorded Total Score 7 09/03/2023 [facility] of Occupat ional Health - Occupational [...] Recorded Do you need help finding a [facility] career center and/or a training program? [...] Diagnosis Comments XR CHEST 1 VW Routine 10/31/2023 2:28 PM EST XR CHEST 1 VW Routine 10/30/2023 2:29 PM EST documented in this encounter Results * X-ray chest 1 view (10/31/2023 2:28 PM EST) Anatomical Region Laterality Modality Body, Chest N/A Computed Radiogr aphy us Scanning Provider External IMG DIAGNOSTIC IMAGIN G ORDERABLES Final Result * X-ray chest 1 view (10/30/2023 2:29 PM EST) Anatomical Region Laterality Modality Body, Chest N/A Computed Radiogr aphy us Scanning Provider External IMG DIAGNOSTIC IMAGIN G ORDERABLES Final Result documented in this encounter Visit Diagnoses Not on filedocumented in this encounter Additional Health Concerns Assessment Noted Time PHQ-9 Depression Total Score: 7 09/03/19 24 1:55 PM EST documented as of this encounter Care Teams Barrel Charrer Relationship Specialty Start Date End Date Shakeel Guallpa DO [address] [facility], [place] [address] PCP - General Family Medicine 05/14/23 documented as of this encounter
--- OUTSIDE RECORDS SUMMARY | 2025-02-15 07:45 | XMS_ITS | Encounter Summary ---
Author Organization [facility] Sys [facility] Address [facility] [id number] [address] [place] [address] Care Team Providers Care Fish Skinning Machine Feeder Name Role Phone KevinShakeel rollins Primary Care Provider [phone] Encounter Details Date Type Department Care Team (Late st Contact Info) Description 11/05/2023 Orders Only [facility] - Family Medicine [address] [place] [address] External, Scanning Provider Social History Tobacco Use Types Packs/Day Years Used Date Smoking Tobacco: Never Smokeless Tobacco: Never Alcohol Use Standard Drinks/Week Comments Not Currently 42 (1 standard drink = 0.6 oz pu re alcohol) not currently drinking [employer] Utilities Answer Date Recorded In the past 12 months has [employer], gas, oil, or water [employer] threatened to shut off services in [...] Answer Date Recorded Total Score 7 09/03/2023 [facility] of Occupat ional Health - Occupational [...] Recorded Do you need help finding a [facility] career center and/or a training [...] Diagnosis Comments XR CHEST 1 VW Routine 11/05/2023 2:54 PM EST documented in this encounter Results * X-ray chest 1 view (11/05/2023 2:54 PM EST) Anatomical Region Laterality Modality Body, Chest N/A Computed Radiogr aphy us Scanning Provider External IMG DIAGNOSTIC IMAGIN G ORDERABLES Final Result documented in this encounter Visit Diagnoses Not on filedocumented in this encounter Additional Health Concerns Assessment Noted Time PHQ-9 Depression Total Score: 7 09/03/19 24 1:55 PM EST documented as of this encounter Care Teams Fish Skinning Machine Feeder Relationship Specialty Start Date End Date Shakeel Guallpa DO [address] [facility], [place] [address] PCP - General Family Medicine 05/14/23 documented as of this encounter
--- OUTSIDE RECORDS SUMMARY | 2025-02-15 07:45 | XMS_ITS | Encounter Summary ---
Author Organization [facility] Address [facility] [id number] [address] [place] [address] Care Team Providers Care Body Liner Name Role Phone KevinShakeel rollins Primary Care Provider [phone] Encounter Details Date Type Department Care Team (Late st Contact Info) Description 10/14/2023 Orders Only [facility] - Family Medicine [address] [place] [address] External, Scanning Provider Social History Tobacco Use Types Packs/Day Years Used Date Smoking Tobacco: Never Smokeless Tobacco: Never Alcohol Use Standard Drinks/Week Comments Not Currently 42 (1 standard drink = 0.6 oz pu re alcohol) not currently drinking [employer] Utilities Answer Date Recorded In the past 12 months has [employer], gas, oil, or water [employer] threatened to shut off services in your [...] often do you attend chur ch or faith services? More than 4 times per year 11/19/2022 Do you belong to any clubs o r organizations such as jewish groups, unions, fraternal or athletic groups, or [...] Answer Date Recorded Total Score 7 09/03/2023 [facility] of Occupat ional Health - Occupational Stress [...] Recorded Do you need help finding a [facility] career center and/or a training program? [...] documented as of this encounter Care Teams Body Liner Relationship Specialty Start Date End Date Shakeel Guallpa DO [address] [facility] [place] [address] PCP - General Family Medicine 05/14/23 documented as of this encounter
--- OUTSIDE RECORDS SUMMARY | 2025-02-15 07:45 | XMS_ITS | Encounter Summary ---
Author Organization [facility] Address [facility] [id number] [address] [place] [address] Care Team Providers Care Cant Gang Sawyer Name Role Phone KevinShakeel rollins Primary Care Provider [phone] Encounter Details Date Type Department Care Team (Late st Contact Info) Description 10/18/2023 Orders Only [facility] - Family Medicine [address] [place] [address] External, Scanning Provider Social History Tobacco Use Types Packs/Day Years Used Date Smoking Tobacco: Never Smokeless Tobacco: Never Alcohol Use Standard Drinks/Week Comments Not Currently 42 (1 standard drink = 0.6 oz pu re alcohol) not currently drinking [employer] Utilities Answer Date Recorded In the past 12 months has [employer], gas, oil, or water [employer] threatened to shut off services in your [...] often do you attend chur ch or episcopalian services? More than 4 times per year 11/19/2022 Do you belong to any clubs o r organizations such as confucianist groups, unions, fraternal [...] Answer Date Recorded Total Score 7 09/03/2023 [facility] of Occupat ional Health - [...] Recorded Do you need help finding a [facility] career center and/or a training program? No [...] Name Priority Date/Time Associated Diagnosis Comments XR ABDOMEN AP 1 VW Routine 10/17/2023 9:44 AM EST documented in this encounter Results * X-ray abdomen ap 1 view (10/17/2023 9:44 AM EST) Anatomical Region Laterality Modality Body, Abdomen N/A Computed Radiogr aphy us Scanning Provider External IMG DIAGNOSTIC IMAGIN G ORDERABLES Final Result documented in this encounter Visit Diagnoses Not on filedocumented in this encounter Additional Health Concerns Assessment Noted Time PHQ-9 Depression Total Score: 7 09/03/19 24 1:55 PM EST documented as of this encounter Care Teams Cant Gang Sawyer Relationship Specialty Start Date End Date Shakeel Guallpa DO [address] [facility], [place] [address] PCP - General Family Medicine 05/14/23 documented as of this encounter
--- OUTSIDE RECORDS SUMMARY | 2025-02-15 07:46 | XMS_ITS | Encounter Summary ---
Author Organization [facility] Sys tem Address [id number] [address] [place] [address] Care Team Providers Care Drapery Hemmer Automatic Name Role Phone KevinShakeel rollins Primary Care Provider [phone] Encounter Details Date Type Department Care Team (Late st Contact Info) Description 09/03/2023 Orders Only [facility] - Family Medicine [address] [place] [address] External, Scanning Provider Social History Tobacco Use Types Packs/Day Years Used Date Smoking Tobacco: Never Smokeless Tobacco: Never Alcohol Use Standard Drinks/Week Comments Not Currently 42 (1 standard drink = 0.6 oz pu re alcohol) not currently drinking [employer] Utilities Answer Date Recorded In the past 12 months has [employer], gas, oil, or water [employer] threatened to shut off services in your [...] often do you attend chur ch or congregational services? More than 4 times per year 11/19/2022 Do you belong to any clubs o r organizations such as hoahaoism groups, unions, fraternal or athletic groups, or [...] Answer Date Recorded Total Score 7 09/03/2023 [facility] of Occupat ional Health - [...] Recorded Do you need help finding a [facility] career center and/or a training program? [...] on file documented as of this encounter Functional Status * Audit-C Score Answer Date of Assessment Author 0 09/03/2023 2:31 PM Shakeel Shin DO * Question Answer Date of Assessment Author Q1: How often do you have a drink containing alcohol? Never 09/03/2023 2:31 PM EST Shakeel Guallpa DO Q2: How many drinks containing alcohol do you have on a typical day when you are drinking? Patient does not drink 09/03/2023 2:31 PM Shakeel Shin DO Q3: How often do you have six or more drinks on one occasion? Never 09/03/2023 2:31 PM EST Shakeel Guallpa DO documented as of this encounter Plan of Treatment Not on file documented as of this encounter Procedures Procedure Name Priority Date/Time Associated Diagnosis Comments HM COLONOSCOPY Routine 01/24/2023 3:53 PM EDT documented in this encounter Visit Diagnoses Not on filedocumented in this encounter Additional Health Concerns Assessment Noted Time PHQ-9 Depression Total Score: 7 09/03/19 24 1:55 PM EST documented as of this encounter Care Teams Drapery Hemmer Automatic Relationship Specialty Start Date End Date Shakeel Guallpa DO [address] [place] [address] PCP - General Family Medicine 05/14/23 documented as of this encounter
--- OUTSIDE RECORDS SUMMARY | 2025-02-15 07:46 | XMS_ITS | Encounter Summary ---
Author Organization [facility] Sys tem Address [id number] [address] [place] [address] Care Team Providers Care Aircraft Instrument Tester Name Role Phone KevinShakeel rollins Primary Care Provider [phone] Encounter Details Date Type Department Care Team (Late st Contact Info) Description 11/25/2023 Orders Only [facility] - Family Medicine [address] [place] [address] External, Scanning Provider Social History Tobacco Use Types Packs/Day Years Used Date Smoking Tobacco: Never Smokeless Tobacco: Never Alcohol Use Standard Drinks/Week Comments Not Currently 42 (1 standard drink = 0.6 oz pu re alcohol) not currently drinking [employer] Utilities Answer Date Recorded In the past 12 months has [employer], gas, oil, or water [email or web address] threatened to shut off services in your [...] often do you attend chur ch or confucianism services? More than 4 times per year 11/19/2022 Do you belong to any clubs o r organizations such as christianity groups, unions, fraternal or athletic groups, or [...] Answer Date Recorded Total Score 7 09/03/2023 [facility] of Occupat ional Health - Occupational [...] Recorded Do you need help finding a [facility] career center and/or a training program? [...] Diagnosis Comments XR CHEST 1 VW Routine 11/23/2023 3:14 PM EDT XR CHEST 1 VW Routine 11/22/2023 3:15 PM EDT XR CHEST 1 VW Routine 11/21/2022 3:13 PM EDT documented in this encounter Results * X-ray chest 1 view (11/23/2023 3:14 PM EDT) Anatomical Region Laterality Modality Body, Chest N/A Computed Radiogr aphy us Scanning Provider External IMG DIAGNOSTIC IMAGIN G ORDERABLES Final Result * X-ray chest 1 view (11/22/2023 3:15 PM EDT) Anatomical Region Laterality Modality Body, Chest N/A Computed Radiogr aphy us Scanning Provider External IMG DIAGNOSTIC IMAGIN G ORDERABLES Final Result * X-ray chest 1 view (11/21/2022 3:13 PM EDT) Anatomical Region Laterality Modality Body, Chest N/A Computed Radiogr aphy us Scanning Provider External IMG DIAGNOSTIC IMAGIN G ORDERABLES Final Result documented in this encounter Visit Diagnoses Not on filedocumented in this encounter Additional Health Concerns Assessment Noted Time PHQ-9 Depression Total Score: 7 09/03/19 24 1:55 PM EST documented as of this encounter Care Teams Aircraft Instrument Tester Relationship Specialty Start Date End Date Shakeel Guallpa DO [address] [facility], [place] [address] PCP - General Family Medicine 05/14/23 documented as of this encounter
--- OUTSIDE RECORDS SUMMARY | 2025-02-15 07:46 | XMS_ITS | Clinical Summary ---
Author Organization [facility] Address [address] [place] [address] Phone Care Team Providers Care Brick Tester Name Role Phone Unavailable Primary Care Provider Unavailabl e Social History Tobacco Use Types Packs/Day Years Used Date Smoking Tobacco: Never Assessed Sex and Gender Information Value Date Recorded Sex Assigned at Not on file Legal Sex Male 2:54 PM EDT Gender Identity Not on file Sexual Orientation Not on file Plan of Treatment Health Maintenance Due Date Last Done Comments CT Colonography 1978 Colonoscopy 1978 Colorectal Cancer Screening 1978 FIT-DNA (Cologuard) 1978 FIT 1978 HIV Screening 1978 Lipid Panel 1978 Sigmoidoscopy 1978 Yearly Adult Physical 1978 MMR Vaccines (1 of 1 - Stand arlene series) 1979 Hepatitis C Screening 1996 Hepatitis B Vaccines (1 of 3 - 19+ 3-dose series) 1997 Pneumococcal Vaccine: Pediat rics and At-Risk Adult Patients (1 of 2 - PCV) 1997 DTaP/Tdap/Td Vaccines (1 - Tdap) 2000 COVID-19 Vaccine ( - 2023-2 5 season) 2024 Influenza Vaccine (Season Ended) 2025 Zoster Vaccines (1 of 2) 2028 HIB Vaccines Aged Out No longer eligi ble based on patient's age to complete this topic HPV Vaccines Aged Out No longer eligi ble based on patient's age to complete this topic Hepatitis A Vaccines Aged Out No long er eligible based on patient's age to complete this topic IPV Vaccines Aged Out No longer eligi ble based on patient's age to complete this topic Meningococcal Vaccine Aged Out No mer jessenia eligible based on patient's age to complete this topic Rotavirus Vaccines Aged Out No longer eligible based on patient's age to complete this topic
--- OUTSIDE RECORDS SUMMARY | 2025-02-15 07:46 | XMS_ITS | Encounter Summary ---
Author Organization [facility] Sys tem Address [id number] [address] [place] [address] Care Team Providers Care Fur Examiner Name Role Phone KevinShakeel rollins Primary Care Provider [phone] Encounter Details Date Type Department Care Team (Late st Contact Info) Description 01/24/2023 Orders Only [facility] - Family Medicine [address] [place] [address] External, Scanning Provider Social History Tobacco Use Types Packs/Day Years Used Date Smoking Tobacco: Never Smokeless Tobacco: Never Alcohol Use Standard Drinks/Week Comments Yes 42 (1 standard drink = 0.6 oz pu re alcohol) Social Connection and Isolat ion Panel [NHANES] Answer Date Recorded In a typical week, how many times do you talk on the phone with family, friends, or neighbors? More than three times a week 11/19/2022 How often do you get togethe r with friends or relatives? Twice a week 11/19/2022 How often do you attend chur ch or sikhism services? More than 4 times per year 11/19/2022 Do you belong to any clubs o r organizations such as yazdanism groups, unions, fraternal or athletic groups, or school groups? Yes 11/19/2022 How often do you attend meet ings of the clubs or organizations you belong to? Never 11/19/2022 Are you , , di vorced, , never , or living with a partner? 11/19/2022 AUD[employer]-C Answer Date Recorded Q1: How often do you have a drink containing alc ohol? 2-4 times a month 11/19/2022 Q2: How many drinks containi ng alcohol do you have on a typical day when you are drinking? 10 or more 11/19/2022 Q3: How often do you have si x or more drinks on one occasion? Monthly 11/19/2022 Overall Financial Resource Strain (CARDIA) Answe r Date Recorded How hard is it for you to pa y for the very basics like food, housing, medical care, and heating? Not hard at all 11/19/2022 PHQ-2 Answer Date Recorded Total Score 0 11/19/2022 [facility] of Occupat ional Health - Occupational Stress [...] Recorded Do you need help finding a [place] career center and/or a training program? No 11/19/2022 Purpose - Life Answer Date Recorded I [...] Procedure Name Priority Date/Time Associated Diagnosis Comments DRUG SCREEN, URINE Routine 01/24/2023 documented in this encounter Results * Drug Screen, Urine (01/24/2023) us Scanning Provider External URINE ORDERABLES Yenny l Result MANUALLY TRANSCRIBED RESULTS documented in this encounter Visit Diagnoses Not on filedocumented in this encounter Additional Health Concerns Assessment Noted Time PHQ-9 Depression Total Score: 0 11/20/19 11:47 AM EDT documented as of this encounter Care Teams Fur Examiner Relationship Specialty Start Date End Date Shakeel Guallpa DO [address] [facility], [place] [address] PCP - General Family Medicine 05/14/23 documented as of this encounter
--- OUTSIDE RECORDS SUMMARY | 2025-02-15 07:46 | XMS_ITS | Encounter Summary ---
Author Organization [facility] Sys tem Address [id number] [address] [place] [address] Care Team Providers Care Machine I Trimmer Name Role Phone KevinShakeel rollins Primary Care Provider [phone] Encounter Details Date Type Department Care Team (Late st Contact Info) Description 10/09/2023 Orders Only [facility] - Family Medicine [address] [place] [address] External, Scanning Provider Social History Tobacco Use Types Packs/Day Years Used Date Smoking Tobacco: Never Smokeless Tobacco: Never Alcohol Use Standard Drinks/Week Comments Not Currently 42 (1 standard drink = 0.6 oz pu re alcohol) not currently drinking [employer] Utilities Answer Date Recorded In the past 12 months has [employer], gas, oil, or water [employer] threatened to shut off services in your [...] often do you attend chur ch or anabaptist services? More than 4 times per year 11/19/2022 Do you belong to any clubs o r organizations such as protestant groups, unions, fraternal or athletic groups, or [...] Answer Date Recorded Total Score 7 09/03/2023 [facility] of Occupat ional Health - Occupational Stress [...] Recorded Do you need help finding a [facility] career center and/or a [...] as of this encounter Care Teams Machine I Trimmer Relationship Specialty Start Date End Date Shakeel Guallpa DO [address] [facility] [address] PCP - General Family Medicine 05/14/23 documented as of this encounter
--- OUTSIDE RECORDS SUMMARY | 2025-02-15 07:46 | XMS_ITS | Encounter Summary ---
Author Organization [facility] Sys tem Address [id number] [address] [place] [address] Care Team Providers Care Park Landscape Architect Name Role Phone Shakeel Guallpa DO Primary Care Provider [phone] Encounter Details Date Type Department Care Team (Late st Contact Info) Description 09/05/2023 Orders Only [facility] - Family Medicine [address] [place] [address] Shakeel Guallpa DO [address] [place], [facility] [place] [address] Social History Tobacco Use Types Packs/Day Years Used Date Smoking Tobacco: Never Smokeless Tobacco: Never Alcohol Use Standard Drinks/Week Comments Not Currently 42 (1 standard drink = 0.6 oz pu re alcohol) not currently drinking [facility] Utilities Answer Date Recorded In the past 12 months has [employer], gas, oil, or water [employer] threatened to shut off services in your [...] week 11/19/2022 How often do you attend [facility] or scientology services? More than 4 times per year [...] Answer Date Recorded Total Score 7 09/03/2023 [facility] of Occupat ional Health - Occupational Stress [...] Recorded Do you need help finding a [facility] career center and/or a training [...] documented as of this encounter Care Teams Park Landscape Architect Relationship Specialty Start Date End Date Shakeel Guallpa DO [address], [place] [address] PCP - General Family Medicine 05/14/23 documented as of this encounter
--- OUTSIDE RECORDS SUMMARY | 2025-02-15 07:46 | XMS_ITS | Clinical Summary ---
Author Organization [facility] Address [address] [place] [address] Care Team Providers Care Drums Teacher Name Role Phone BethanieShakeel jackson Primary Care Provider Allergies Active Allergy Reactions Criticality Noted Date Comments Sulfamethoxazole-Trimethoprim Other: See Comments 03/25/2023 Codeine Other: See Comments 03/25/2023 Erythromycin Other: See Comments 03/25/2023 Penicillins Other: See Comments 03/25/2023 Medications olmesartan (BENICAR) 40 mg tablet Take 40 mg by mouth once daily. Active folic acid 1 mg tablet folic acid 1 mg tablet TAKE 1 TABLET BY MOUTH DAILY Active dextroamphetami ne-amphetamine (ADDERALL) 10 mg tablet Take 10 mg by mouth three times daily. 07/08/2022 Active escitalopram oxalate (LEXAPRO) 10 mg tablet Take 1 tablet by mouth once daily. 30 tablet 1 04/01/2023 Active gabapentin (NEURONTIN) 300 mg capsule Take 1 capsule by mouth twice daily for 60 days. 60 capsule 1 04/01/2023 Active cholecalciferol (VITAMIN D3) 1,000 unit tab tablet Take 1 tablet by mouth once daily for 55 doses. 30 tablet 1 04/02/2023 Active cyanocobalamin (VITAMIN B-12) 500 mcg tablet Take 1 tablet by mouth once daily for 25 doses. 25 tablet 04/02/2023 Active doxepin capsule 10 mg Take 1 capsule by mouth daily at bedtime. 7 capsule 7 04/01/2023 Active hydrOXYzine HCl (ATARAX) 50 mg tablet Take 1 tablet by mouth three times daily as needed for anxiety. 60 tablet 1 04/01/2023 Active melatonin 3 mg tablet Take 1 tablet by mouth daily at bedtime. 30 tablet 1 04/01/2023 Active therapeutic multivitamin-mi nerals (THERA-M PLUS) 9 mg iron-400 mcg tablet Take 1 tablet by mouth daily with breakfast. 30 tablet 1 04/02/2023 Active Active Problems Problem Noted Date Diagnosed Date Alcohol use disorder, severe, dependence 023 Cannabis use disorder, moderate, dependence 03/03 Mixed obsessional thoughts and acts 03/27/2023 Severe recurrent major depre ssion without psychotic features 03/26/2023 MAYUR (generalized anxiety disorder) 03/26/2023 Malnutrition of moderate degree 03/26/2023 MDD (major depressive disorder), severe 03/26/20 23 Alcohol intoxication with mo derate or severe use disorder, with unspecified complication 03/25/2023 Suicide attempt 07/16/2022 03/25/2023 Toxic metabolic encephalopathy 07/16/2022 0 03/25/2023 Abnormal liver function 04/17/2022 03/25/20 23 Bipolar 1 disorder 05/15/2019 03/25/2023 Bipolar 1 disorder, depressed, severe 05/14/2019 03/25/2023 Acute respiratory failure with hypoxia 9 03/25/2023 Aspiration pneumonia 05/12/2019 03/25/2023 Obstructive sleep apnea syndrome 08/08/2018 03/25/2023 Essential hypertension 04/04/2018 Alcohol abuse 06/07/2017 03/25/2023 Gastroesophageal reflux disease 03/15/2017 03/25/2023 Family History Medical History Relation Comments Osteoporosis Father Osteoporosis Mother Osteoporosis Paternal Grandmother Relation Status Comments Father Mother Paternal Grandmother Social History Tobacco Use Types Packs/Day Years Used Date Smoking Tobacco: Never Tobacco Cessation:Counseling Given: Not Answered Alcohol Use Standard Drinks/Week Comments Yes 0 (1 standard drink = 0.6 oz pur e alcohol) Area Deprivation Index Answer Date Valerio rded National Score (1-100), lower number is lower ri sk 95 03/26/2023 State Score (1-10), lower number is lower risk 9 03/26/2023 Data from: https://www.neighborhoodatlas.medicine.[facility].edu/. Last address used for calculation [address] 03/26/2023 Sex and Gender Information Value Date Recorded Sex Assigned at Not on file Legal Sex Male 9:16 AM EST Gender Identity Not on file Sexual Orientation Not on file Last Filed Vital Signs Vital Sign Reading Time Taken Comments Blood Pressure 130/91 04/01/2023 7:33 AM EDT Pulse 59 04/01/2023 7:33 AM EDT Temperature 36.8 C (98.2 F) 04/01/2023 7:33 AM EDT Respiratory Rate 16 04/01/2023 7:33 AM EDT Oxygen Saturation 97% 04/01/2023 7:33 AM EDT Inhaled Oxygen Concentration - - Weight 95.9 kg (211 lb 6.4 oz) 03/26/2023 9:48 P M EDT Height 175.3 cm (5' 9 ) 03/26/2023 9:48 PM EDT Body Mass Index 31.22 03/26/2023 9:48 PM EDT Plan of Treatment Health Maintenance Due Date Last Done Comments Anxiety Screening 1996 Depression Screening 1996 Hepatitis C Screening 1996 DTaP,Tdap,Td Vaccine (2 - Td or Tdap) 10/28/2018 10/28/2008 CT Colonography 2023 Cologuard (FIT-DNA) 2023 Colonoscopy 2023 05/21/2018 Colorectal Cancer Screening 2023 Fecal Occult Blood 2023 Sigmoidoscopy 2023 Covid-19 Vaccine ( - 2023-2 5 season) 2024 08/10/2021, 12/20/2020, 11/22/2020 Influenza Vaccine (Season Ended) 2025 07/16/2022, 08/17/2021, 08/01/2020, Additional history exists Diabetes Screening 03/27/2026 03/27/2023, 0 03/27/2023, 03/26/2023, Additional history exists Lipid Screening 03/27/2028 03/27/2023, 08/02, 08/03/2022 HIV Screening Completed 11/18/2013 Hepatitis B Vaccine Completed 01/21/2017, 08/20/2016, 07/02/2016 Procedures Procedure Name Priority Date/Time Associated Diagnosis Comments COMPREHENSIVE METABOLIC PANEL Routine 03/27/2023 7:24 AM EDT LIPID PANEL, FASTING Routine 03/27/2023 7:24 AM EDT HIV 1/2 COMBO WITH REFLEX TO DIFFERENTIATION 11/18/2013 5:00 AM EDT from Last 3 Months or Most Recently Relevant to Health Maintenance Results * (ABNORMAL) LIPID PANEL BASIC (03/27/2023 7:24 AM EDT) [facility] Cholesterol, Total 158 <200 mg/dL 03/27/2023 10:16 AM EDT [facility] Comment: <200 mg/dL, Desirable 200-239 mg/dL, Borderline high >239 mg/dL, High Triglyceride 153(H) <150 mg/dL 03/27/2023 10:16 AM EDT [facility] Comment: <150 mg/dL, Normal 150-199 mg/dL, Borderline high 200-499 mg/dL, High >499 mg/dL, Very high HDL Cholesterol 39(L) >39 mg/dL 10:16 AM EDT [facility] Comment: 40-59 mg/dL, Acceptable >59 mg/dL, High: Negative risk factor for coronary heart disease <40 mg/dL, Low: Positive risk factor for coronary heart disease Non HDL Cholesterol 119 <130 mg/dL 03/27/2023 10:16 AM EDT [facility] Comment: <130 mg/dL, Optimal 130-159 mg/dL, Near optimal/above optimal 160-189 mg/dL, Borderline high 190-219 mg/dL, High >219 mg/dL, Very high Secondary prevention optimal non HDL Cholesterol levels are recommended to be <100 mg/dL Fasting Time Unknown hrs 03/27/2023 10:16 AM EDT [facility] VLDL Cholesterol 31(H) <30 mg/dL 03/27/20 10:16 AM EDT [facility] TC:HDL Ratio 4.05 <5.10 03/27/2023 10:16 AM EDT [facility] LDL Cholesterol, Calculated 88 <100 mg/dL 03/27/2023 10:16 AM EDT [facility] Comment: <100 mg/dL, Optimal 100-129 mg/dL, Near optimal/above optimal 130-159 mg/dL, Borderline high 160-189 mg/dL, High >189 mg/dL, Very high Secondary prevention optimal LDL Cholesterol levels are recommended to be < 70 mg/dL LDL:HDL Ratio 2.26 <2.54 03/27/2023 10:16 AM EDT [facility] Comment: Reference: 1. National Cholesterol Education Program ATP III Guideline At-A-Glance Quick Desk Reference: National Heart, Lung, and Blood [place]. National Institutes of Health. 2001: NIH Publication No. 01-3305. 2. An International Atherosclerosis Society position paper: global recommendations for the management of dyslipidemia: executive summary, Atherosclerosis. 2014: 232(2):410-413. Blood BLOOD SPECIMEN / Unknown Venipuncture / Unknown 03/27/2023 7:24 AM EDT 03/27/2023 8:08 AM EDT us Jimenez Castillo MD LABORATORY Final Result [facility] [address] [place] [address], * (ABNORMAL) COMP METABOLIC PANEL (03/27/2023 7:24 AM EDT) Protein, Total 6.6 6.3 - 8.0 g/dL 03/27/2023 10:16 AM EDT [facility] Albumin 3.9 3.9 - 4.9 g/dL 03/27/2023 10:16 AM EDT [facility] Calcium, Total 9.1 8.5 - 10.2 mg/dL 03/27/2023 10:16 AM EDT [facility] Bilirubin, Total 0.4 0.2 - 1.3 mg/dL 03/27/2023 10:16 AM EDT [facility] Alkaline Phosphatase 89 38 - 113 U/L 03/27/2023 10:16 AM EDT [facility] AST 43(H) 14 - 40 U/L 03/27/2023 10:16 AM EDT [facility] ALT 56(H) 10 - 54 U/L 03/27/2023 10:16 AM EDT [facility] Glucose 95 74 - 99 mg/dL 03/27/2023 10:16 AM EDT [facility] Comment: The [place] Diabetes Association (ADA) provides guidance for cutoff [...] Standards of Medical Care in Diabetes 2016, [place] Diabetes Association. Diabetes Care. 2016.39(Suppl 1). BUN 11 9 - 24 mg/dL 03/27/2023 10:16 AM EDT [facility] Creatinine 0.97 0.73 - 1.22 mg/dL 03/27/2023 10:16 AM EDT [facility] Sodium 136 136 - 144 mmol/L 03/27/2023 10:16 AM EDT [facility] Potassium 4.1 3.7 - 5.1 mmol/L 03/27/2023 10:16 AM EDT [facility] Chloride 100 97 - 105 mmol/L 03/27/2023 10:16 AM EDT [facility] CO2 25 22 - 30 mmol/L 03/27/2023 10:16 AM EDT [facility] Anion Gap 11 9 - 18 mmol/L 03/27/2023 10:16 AM EDT [facility] Estimated Glomerular Filtration Rate 99 >=60 mL/min/1.7 3m 03/27/2023 10:16 AM EDT [facility] Comment:Estimated Glomerular Filtration Rate (eGFR) is calculated using the 2020 CKD-EPI creatinine equation. This equation utilizes serum creatinine, sex, and age as parameters. The creatinine assay has traceable calibration to isotope dilution- mass spectrometry. Refer to KDIGO guidelines for clinical interpretation. In patients with unstable renal function, e.g. those with acute kidney injury, the eGFR may not accurately reflect actual GFR. Blood BLOOD SPECIMEN / Unknown Venipuncture / Unknown 03/27/2023 7:24 AM EDT 03/27/2023 8:08 AM EDT us Jimenez Castillo MD LABORATORY Final Result [facility] [address] [place] [address], [place] * HIV AB 1&2 SCREEN (11/18/2013 5:00 AM EDT) HIV 1 & 2 Ab (EIA) Nonreactive Nonreactive [facility] 11/18/2013 5:00 AM EDT 11/18/2013 5:08 AM EDT us Jeferson Gamez P[facility]ckyj LABORATORY Yenny l Result [facility] [address] [place] [address] from Last 3 Months or Most Recently Relevant to Health Maintenance Insurance [facility] MEDICAID Care Teams Drums Teacher Relationship Specialty Start Date End Date Shakeel Guallpa DO [address] [place] [address] PCP - General Family Medicine 03/25/23
--- OUTSIDE RECORDS SUMMARY | 2025-02-15 07:46 | XMS_ITS | Encounter Summary ---
Author Organization [facility] Sys tem Address [id number] [address] [place] [address] Care Team Providers Care Bias Cutting Machine Operator Name Role Phone KevinShakeel rollins Primary Care Provider [phone] Encounter Details Date Type Department Care Team (Late st Contact Info) Description 03/09/2024 Orders Only [facility] - Family Medicine [address] [place] [address] External, Scanning Provider Social History Tobacco Use Types Packs/Day Years Used Date Smoking Tobacco: Never Smokeless Tobacco: Never Alcohol Use Standard Drinks/Week Comments Not Currently 42 (1 standard drink = 0.6 oz pu re alcohol) not currently drinking [employer] Util[employer] Answer Date Recorded In the past 12 months has [employer], gas, oil, or water [employer] threatened to shut off services in your [...] often do you attend chur ch or orthodox services? More than 4 times per year 11/19/2022 Do you belong to any clubs o r organizations such as religion groups, unions, fraternal or athletic groups, or [...] 11/19/2022 PHQ-2 Answer Date Recorded Total Score 23 03/12/2024 [facility] of Occupat ional Health - [...] Recorded Do you need help finding a [facility] career center and/or a training program? No 11/19/2022 Hunger Screening Answer Date Recorded Within the past 12 months we worried whether our food would run out before we got money to buy more. Never True 03/12/2024 Within the past 12 months th e food we bought just didn't last and we didn't have money to get more. Never True 03/12/2024 Purpose - Life Answer Date Recorded I [...] Procedure Name Priority Date/Time Associated Diagnosis Comments PRINTING PRESS MACHINIST PERFORMED / ECHO LIMITED Routine 03/06/2024 1:45 PM EDT documented in this encounter Results * Echo Limited (03/06/2024 1:45 PM EDT) Anatomical Region Laterality Modality Chest N/A Ultrasound us Scanning Provider External CV ECHO ORDERABLES Fi nal Result documented in this encounter Visit Diagnoses Not on filedocumented in this encounter Additional Health Concerns Assessment Noted Time PHQ-9 Depression Total Score: 20 024 10:41 AM EDT documented as of this encounter Care Teams Bias Cutting Machine Operator Relationship Specialty Start Date End Date Shakeel Guallpa DO [address] [facility], [place] [address] PCP - General Family Medicine 05/14/23 documented as of this encounter
--- OUTSIDE RECORDS SUMMARY | 2025-02-15 07:46 | XMS_ITS | Encounter Summary ---
[facility] Address [id number] [address] [place] [address] Care Team Providers Care Edge Inker Heels Name Role Phone Shakeel Guallpa Primary Care Provider [phone] Encounter Details Date Type Department Care Team (Late st Contact Info) Description 06/17/2024 Refill [facility] Internal [facility] - Family Medicine [address] [place] [address] Arleen Sawyer CMA Social History Tobacco Use Types Packs/Day Years Used Date Smoking Tobacco: Never Smokeless Tobacco: Never Alcohol Use Standard Drinks/Week Comments Not Currently 42 (1 standard drink = 0.6 oz pu re alcohol) not currently drinking [employer] Utilities Answer Date Recorded In the past 12 months has Rad, gas, oil, or water [employer] threatened to shut off services in your [...] often do you attend chur ch or catholic services? More than 4 times per year 11/19/2022 Do you belong to any clubs o r organizations such as sikh groups, unions, fraternal or athletic groups, or [...] Answer Date Recorded Total Score 23 03/12/2024 [facility] of Occupat ional Health - Occupational Stress [...] Recorded Do you need help finding a [facility] career [facility] and/or a training program? [...] on file documented as of this encounter Miscellaneous Notes * Telephone Encounter - Arleen Sawyer CMA - 06/17/2024 10:45 AM EDT Pt needs a refill on amirodone. Pharmacy is listed and correct. * Telephone Encounter - Shakeel Guallpa DO - 06/17/2024 10:45 AM EDT He should be getting that from his shot hole driller * Telephone Encounter - Arleen Sawyer CMA - 06/17/2024 10:45 AM EDT Let pt know to get this medication filled from his shot hole driller per Dr Guallpa. Pt verbalizes understanding. documented in this encounter Plan of Treatment Not on file documented as of this encounter Visit Diagnoses Not on filedocumented in this encounter Additional Health Concerns Assessment Noted Time PHQ-9 Depression Total Score: 23 024 2:06 PM EDT documented as of this encounter Care Teams Edge Inker Heels Relationship Specialty Start Date End Date Shakeel Guallpa DO [address] [facility], [place] [address] PCP - General Family Medicine 05/14/23 documented as of this encounter
--- OUTSIDE RECORDS SUMMARY | 2025-02-15 07:46 | XMS_ITS | Encounter Summary ---
Author Organization [employer] s tem Address [facility] [id number] [address] [place] [address] Care Team Providers Care Tipple Oiler Name Role Phone Shakeel Guallpa DO Primary Care Provider [phone] Encounter Details Date Type Department Care Team (Late st Contact Info) Description 01/18/2024 Telephone [facility] - Family Medicine [address] [place] [id number] Shakeel Guallpa DO [address] [facility] [place] [address] Social History Tobacco Use Types Packs/Day Years Used Date Smoking Tobacco: Never Smokeless Tobacco: Never Alcohol Use Standard Drinks/Week Comments Not Currently 42 (1 standard drink = 0.6 oz pu re alcohol) not currently drinking [employer] Utilities Answer Date Recorded In the past 12 months has [employer], gas, oil, or water [employer] threatened to shut off services in your [...] week 11/19/2022 How often do you attend [facility] or scientologist services? More than 4 times per year 11/19/2022 Do you belong to any clubs o r organizations such as congregational groups, unions, fraternal or athletic groups, or [...] Answer Date Recorded Total Score 7 09/03/2023 [facility] of Occupat ional Health - [...] you need help finding a [facility] career center and/or a training program? [...] documented as of this encounter Care Teams Tipple Oiler Relationship Specialty Start Date End Date Shakeel Guallpa DO [address], [place] [address] PCP - General Family Medicine 05/14/23 documented as of this encounter
--- OUTSIDE RECORDS SUMMARY | 2025-02-15 07:46 | XMS_ITS | Encounter Summary ---
Author Organization [facility] Sys tem Address [facility] [id number] [address] [place] [address] Care Team Providers Care Wood Boatbuilder Name Role Phone KevinShakeel rollins Primary Care Provider [phone] Encounter Details Date Type Department Care Team (Late st Contact Info) Description 02/25/2024 Orders Only [facility] - Family Medicine [address] [place] [address] External, Scanning Provider Social History Tobacco Use Types Packs/Day Years Used Date Smoking Tobacco: Never Smokeless Tobacco: Never Alcohol Use Standard Drinks/Week Comments Not Currently 42 (1 standard drink = 0.6 oz pu re alcohol) not currently drinking [employer] Utilities Answer Date Recorded In the past 12 months has [employer], gas, oil, or water [employer] threatened to shut off services in your [...] often do you attend chur ch or episcopal services? More than 4 times per year 11/19/2022 Do you belong to any clubs o r organizations such as oriental orthodox groups, unions, fraternal or athletic groups, or [...] 11/19/2022 PHQ-2 Answer Date Recorded Total Score 02/05/2024 [facility] of Occupat ional Health - Occupational [...] Recorded Do you need help finding a [facility] career center and/or a training program? No 11/19/2022 Hunger Screening Answer Date Recorded Within the past 12 months we worried whether our food would run out before we got money to buy more. Never True 02/05/2024 Within the past 12 months th e food we bought just didn't last and we didn't have money to get more. Never True 02/05/2024 Purpose - Life Answer Date Recorded I [...] Procedure Name Priority Date/Time Associated Diagnosis Comments ECG 12-LEAD Routine 02/21/2024 8:21 AM EDT documented in this encounter Results * ECG 12 lead (02/21/2024 8:21 AM EDT) us Scanning Provider External ECG ORDERABLES Final Result MANUALLY TRANSCRIBED RESULTS documented in this encounter Visit Diagnoses Not on filedocumented in this encounter Additional Health Concerns Assessment Noted Time PHQ-9 Depression Total Score: 20 024 10:41 AM EDT documented as of this encounter Care Teams Wood Boatbuilder Relationship Specialty Start Date End Date Shakeel Guallpa DO [address] [facility], [place] [address] PCP - General Family Medicine 05/14/23 documented as of this encounter
--- OUTSIDE RECORDS SUMMARY | 2025-02-15 07:46 | XMS_ITS | Referral Summary ---
Author Organization [facility] Address [address] [place] [address] Care Team Providers Care Kiln Remover Name Role Phone Shakeel Guallpa Primary Care Provider Allergies Active Allergy Reactions Criticality Noted Date Comments Amlodipine Swelling 10/21/2024 Codeine Other 05/20/2018 Erythromycin Other 12/18/2016 Penicillins Hives,Other Medium 05/20/2018 Sulfa (Sulfonamide Antibiotics) Hives Medium 05/03 Sulfamethoxazole-Trimethoprim Other 2017 Medications gabapentin (Neurontin) 400 mg capsule Take 400 mg by mouth 3 times a day. 4 Active multivitamin with minerals tablet Take 1 tablet by mouth in the morning. 4 Active pantoprazole (ProtoNix) 40 mg EC tablet Take 40 mg by mouth. 4 Active thiamine (Vitamin B-1) 100 mg tablet Take 100 mg by mouth in the morning. 4 Active apixaban (Eliquis) 5 mg tabletIndications: Cardiac arrest (CMS/HCC),Palpitat ions Take 1 tablet (5 mg) by mouth two times daily. 180 tablet 3 4 Active DULoxetine (Cymbalta) [address] capsule Take 60 mg by mouth in the morning. Active folic acid (Folvite) 1 mg tablet 1 mg. 4 Active carvedilol (Coreg) 6.25 mg tabletIndications: Cardiac arrest (CMS/HCC) Take 1 tablet (6.25 mg) by mouth with breakfast and with evening meal. 180 tablet 3 4 08/07/20 25 Active levothyroxine (Synthroid, Levoxyl) 50 mcg tabletIndications: Acquired hypothyroidism Take 1 tablet (50 mcg) by mouth before breakfast. 90 tablet 3 4 Active fenofibrate (Tricor) 145 mg tabletIndications: Hypertriglyceridem ia Take 1 tablet (145 mg) by mouth in the morning. 30 tablet 11 4 08/07/20 25 Active carvedilol (Coreg) 12.5 mg tabletIndications: Benign hypertensive heart disease without congestive heart failure Take 1 tablet (12.5 mg) by mouth with breakfast and with evening meal. 180 tablet 3 5 10/21/19 26 Active Active Problems Problem Noted Date Diagnosed Date Alcohol withdrawal 08/07/2024 Major depressive disorder, recurrent, moderate 1 10/08/2023 Suicidal ideation 08/07/2024 Normocytic normochromic anemia 01/07/2024 Hypothyroidism 01/03/2024 Other seizures 01/03/2024 Other abnormalities of gait and mobility 024 Septicemia 11/19/2023 Polyuria 11/11/2023 Atrial fibrillation 10/28/2023 Pericardial effusion 10/26/2023 Fever 10/25/2023 Cardiac arrest 10/25/2023 Recurrent major depressive disorder, in partial remission 10/25/2023 Adrenal insufficiency 10/15/2023 Hepatic steatosis 10/04/2023 Hypertriglyceridemia 10/04/2023 Laceration of fifth toe of right foot 10/04/2023 Leukocytosis 10/04/2023 PVC's (premature ventricular contractions) 10/04 Rhabdomyolysis 10/04/2023 Pericardial tamponade 10/03/2023 Cannabis use disorder, moderate, dependence 03/03 Mixed obsessional thoughts and acts 03/27/2023 MAYUR (generalized anxiety disorder) 03/26/2023 Malnutrition of moderate degree 03/26/2023 Severe major depression 03/26/2023 Severe recurrent major depre ssion without psychotic features 03/26/2023 Alcohol intoxication with mo derate or severe use disorder, with unspecified complication 03/25/2023 Suicide attempt 07/16/2022 Abnormal liver function 04/17/2022 Undifferentiated attention deficit disorder 10/0 05/2020 Mild recurrent major depression 05/16/2019 Bipolar 1 disorder 05/15/2019 Severe bipolar I disorder, c urrent or most recent episode depressed 05/14/2019 Obstructive sleep apnea syndrome 08/08/2018 Tubular adenoma of colon 06/02/2018 Gastritis due to Helicobacter species 05/23/2018 Gastritis 05/21/2018 Rectal polyp 05/21/2018 Encounter for diagnostic col onoscopy due to change in bowel habits 05/20/2018 Essential hypertension 04/04/2018 Vitamin D deficiency 11/15/2017 Alcohol abuse 06/07/2017 Resolved Problems Problem Noted Date Diagnosed Date Resolved Date Hypertensive urgency 08/07/2024 024 Edema of both legs 02/21/2024 Metabolic encephalopathy 11/04/202302/2024 Hyperkalemia 11/03/2023 08/07/2024 Pneumonia of both lower lobe s due to Klebsiella pneumoniae 10/28/2023 08/07/2024 Septicemia due to enterococcus 10/28/2023 08/07/2024 Enterococcal bacteremia 10/26/2023 120 02/2024 Dependent on ventilator 10/25/2023 120 02/2024 Acute respiratory distress syndrome (ARDS) 10/19/2023 08/07/2024 Septic shock 10/13/2023 08/07/2024 Acute pulmonary embolism 10/12/202302/2024 YESSENIA (acute kidney injury) 10/04/2023 NSTEMI (non-ST elevated myoc ardial infarction) 10/04/2023 08/07/2024 Alcohol withdrawal delirium 10/03/2023 08/07/2024 Right sided weakness 07/16/2022 024 Aspiration pneumonia 05/12/2019 024 Intractable vomiting with nausea 05/20/2018 08/07/2024 Social History Tobacco Use Types Packs/Day Years Used Date Smoking Tobacco: Some Days Cigarettes Smokeless Tobacco: Never Alcohol Use Standard Drinks/Week Comments Yes 0 (1 standard drink = 0.6 oz pur e alcohol) [place] Safety & Environment Answer Date Rec orded Fear of Current or Ex-Partner Not on file Emotionally Abused Not on file 10/25/2023 Physically Abused Not on file 10/25/2023 Sexually Abused Not on file 10/25/2023 Physically or Sexually Abused Not on file Sex and Gender Information Value Date Recorded Sex Assigned at Not on file Legal Sex Male 12:34 PM EST Gender Identity Not on file Sexual Orientation Not on file Last Filed Vital Signs Vital Sign Reading Time Taken Comments Blood Pressure 149/90 10/21/2024 1:31 PM EST Pulse 98 10/21/2024 1:31 PM EST Temperature - - Respiratory Rate - - Oxygen Saturation 96% 10/21/2024 1:31 PM EST Inhaled Oxygen Concentration - - Weight 128 kg (282 lb) 10/21/2024 1:31 PM EST Height 177.8 cm (5' 10 ) 10/21/2024 1:31 PM EST Body Mass Index 40.46 10/21/2024 1:31 PM EST Plan of Treatment Upcoming Encounters Date Type Department Care Team (Late st Contact Info) Description 03/03/2025 2:00 PM EDT Office Visit [facility] [address] [place] [address] Geovanna Ricci MD [address] [place] [address] Insurance [facility] MEDICAID Care Teams Kiln Remover Relationship Specialty Start Date End Date Shakeel Guallpa DO PCP - General Family Medicine 02/21/24
--- OUTSIDE RECORDS SUMMARY | 2025-02-15 07:46 | XMS_ITS | Clinical Summary ---
Author Organization [facility] Address [address] [place] [place] [address] Care Team Providers Care Foreman/Pile Driving And Erection Name Role Phone Shakeel Guallpa DO Primary Care Provider [phone] Allergies Active Allergy Reactions Criticality Noted Date [...] to enterococcus 10/28/2023 08/07/2024 Enterococcal bacteremia 10/26/2023 12/0 02/2024 Dependent on ventilator 10/25/2023 120 02/2024 Acute respiratory distress syndrome (ARDS) 10/19/2023 08/07/2024 Septic shock 10/13/2023 08/07/2024 Acute pulmonary embolism 10/12/202302/2024 YESSENIA (acute kidney injury) 10/04/2023 NSTEMI (non-ST elevated myoc ardial infarction) 10/04/2023 08/07/2024 Alcohol withdrawal delirium 10/03/2023 08/07/2024 Right sided weakness 07/16/2022 024 Aspiration pneumonia 05/12/2019 024 Intractable vomiting with nausea 05/20/2018 08/07/2024 Family History Medical History Relation Name Comments Cancer Father Hypertension Father Coronary artery disease Maternal Grandfather Stroke Maternal Grandfather Stroke Maternal Grandmother Diabetes Mother Hypertension Mother Relation Name Status Comments Father Maternal Grandfather Maternal Grandmother Mother Social History Tobacco Use Types Packs/Day Years [...] Description 03/03/2025 2:00 PM EDT Office Visit [facility] [address] [place] [address] Geovanna Ricci MD [address] [place] [address] Health Maintenance Due Date Last Done Comments CT Colonography 1978 Colonoscopy 1978 Colorectal Cancer Screening 1978 FIT-DNA 1978 FIT 1978 FOBT 1978 Sigmoidoscopy 1978 Depression Screening 1990 Pneumococcal Vaccine: Pediatrics (0 to 5 Years) and At-Risk Patients (6 to 64 Years) (1 of 2 - PCV) 1997 COVID-19 Vaccine ( - season) 2024 05/03/2023, 08/10/2021, 12/20/2020, Additional history exists Zoster Vaccines (1 of 2) 2028 Adult Tetanus 05/14/2033 05/14/2023, 10/28/2008 Hepatitis B Vaccines Completed 01/21/2017, 08/20/2016, 07/02/2016 Influenza Vaccine Completed 10/07/2024, , 07/16/2022, Additional history exists HIB Vaccines Aged Out No longer eligi ble based on patient's age to complete this topic HPV Vaccines Aged Out No longer eligi ble based on patient's age to complete this topic IPV Vaccines Aged Out No longer eligi ble based on patient's age to complete this topic Meningococcal B Vaccine Aged Out No l onger eligible based on patient's age to complete this topic Meningococcal Vaccine Aged Out No mer jessenia eligible based on patient's age to complete this topic Rotavirus Vaccines Aged Out No longer eligible based on patient's age to complete this topic [place] [address] [place] [address] MEDICAID Care Teams Foreman/Pile Driving And Erection Relationship Specialty Start Date End Date Shakeel Guallpa DO PCP - General Family Medicine 02/21/24
--- OUTSIDE RECORDS SUMMARY | 2025-02-15 07:46 | XMS_ITS | Encounter Summary ---
Author Organization [facility] Sys tem Address [facility] [place]-[id number] [address] [place] [address] Care Team Providers Care Graduating Machine Operator Name Role Phone KevinShakeel rollins Primary Care Provider [phone] Encounter Details Date Type Department Care Team (Late st Contact Info) Description 10/03/2023 Orders Only [facility] Internal Medicine - Family Medicine [address] [place] [address] External, Scanning Provider Social History Tobacco Use Types Packs/Day Years Used Date Smoking Tobacco: Never Smokeless Tobacco: Never Alcohol Use Standard Drinks/Week Comments Not Currently 42 (1 standard drink = 0.6 oz pu re alcohol) not currently drinking [employer] Utilities Answer Date Recorded In the past 12 months has [employer], gas, oil, or water [employer] threatened to shut off services in your [...] often do you attend chur ch or uatsdin services? More than 4 times per year 11/19/2022 Do you belong to any clubs o r organizations such as mandaen groups, unions, fraternal or athletic groups, or [...] Answer Date Recorded Total Score 7 09/03/2023 [facility] of Occupat ional Health - Occupational [...] Diagnosis Comments XR CHEST 1 VW Routine 10/03/2023 3:07 PM EST ECHO DOPPLER Routine 10/02/2023 3:13 PM EST documented in this encounter Results * X-ray chest 1 view (10/03/2023 3:07 PM EST) Anatomical Region Laterality Modality Body, Chest N/A Computed Radiogr aphy us Scanning Provider External IMG DIAGNOSTIC IMAGIN G ORDERABLES Final Result documented in this encounter Visit Diagnoses Not on filedocumented in this encounter Additional Health Concerns Assessment Noted Time PHQ-9 Depression Total Score: 7 09/03/19 24 1:55 PM EST documented as of this encounter Care Teams Graduating Machine Operator Relationship Specialty Start Date End Date Shakeel Guallpa DO [address] [place] [address] PCP - General Family Medicine 05/14/23 documented as of this encounter
--- OUTSIDE RECORDS SUMMARY | 2025-02-15 07:46 | XMS_ITS | Clinical Summary ---
Author Organization [facility] tem Address [id number] [address] [place] [address] Care Team Providers Care Bingo Worker Name Role Phone Shakeel Guallpa Primary Care Provider Allergies Active Allergy Reactions Criticality Noted Date Comments Sulfamethoxazole-Trimethoprim 2017 Codeine 05/20/2018 Erythromycin 08/25/2021 Onabotulinumtoxina 12/11/2023 Penicillins Hives Medium 05/20/2018 Sulfa (Sulfonamide Antibiotics) Hives Medium 05/03 Trimethoprim 09/29/2018 Medications divalproex (DEPAKOTE ER) 500 mg 24 hr tablet Take 1 tablet (500 mg total) by mouth 3 (three) times a day. 270 tablet 4 Active divalproex (DEPAKOTE) 250 mg EC tablet Take 1 tablet (250 mg total) by mouth nightly. 90 tablet 4 Active multivitamin with minerals tablet Take 1 tablet by mouth in the morning. 90 tablet 3 4 Active ziprasidone (GEODON) 40 mg capsuleIndicati ons:Bipolar 1 disorder (CMS-HCC) Take 1 capsule (40 mg total) by mouth once daily. 90 capsule 4 Active cholecalciferol , vitamin D3, (VITAMIN D3) 5,000 units capsule Take 1 capsule (5,000 Units total) by mouth in the morning. 90 capsule 4 Active FLUoxetine (PROzac) 40 mg capsuleIndicati ons:MDD (major depressive disorder), severe (CMS-HCC) Take 1 capsule (40 mg total) by mouth in the morning. 90 capsule 4 Active DULoxetine (CYMBALTA) 30 mg capsule TAKE 1 CAPSULE BY MOUTH DAILY FOR 15 DAYS 4 Active nitrofurantoin, macrocrystal-mo nohydrate, (MACROBID) 100 mg capsule TAKE 1 CAPSULE BY MOUTH TWICE DAILY WITH MEALS FOR 3 DAYS 4 Active OLANZapine (ZyPREXA) 5 mg tablet TAKE 1 TABLET BY MOUTH EVERY 6 HOURS NEEDED AGITATION 4 Active busPIRone (BUSPAR) 15 mg tablet Take 1 tablet (15 mg total) by mouth 3 (three) times a day. 270 tablet 4 Active ARIPiprazole (ABILIFY) 5 mg tablet Take 1 tablet (5 mg total) by mouth in the morning. 90 tablet 4 Active thiamine HCl (VITAMIN B-1) 100 mg tablet Take 1 tablet (100 mg total) by mouth in the morning. 90 tablet 4 Active levothyroxine (SYNTHROID, LEVOTHROID) 50 MCG tablet Take 1 tablet (50 mcg total) by mouth in the morning. 90 tablet 4 Active gabapentin (NEURONTIN) 400 mg capsuleIndicati ons:Other seizures (CMS-HCC) Take 1 capsule (400 mg total) by mouth 3 (three) times a day. 90 capsule 4 Active folic acid (FOLVITE) 1 mg tablet Take 1 tablet (1 mg total) by mouth in the morning. 90 tablet 4 Active carvediloL (COREG) 12.5 mg tablet Take 1 tablet (12.5 mg total) by mouth in the morning and 1 tablet (12.5 mg total) before bedtime. 60 tablet 11 4 Active pantoprazole (PROTONIX) 40 mg EC tablet Take 1 tablet (40 mg total) by mouth every morning before breakfast. 90 tablet 4 Active amiodarone (PACERONE) 200 mg tablet Take 1 tablet (200 mg total) by mouth in the morning. 90 tablet 4 Active apixaban (ELIQUIS) 5 mg tablet Take 1 tablet (5 mg total) by mouth in the morning and 1 tablet (5 mg total) before bedtime. 180 tablet Active Active Problems Problem Noted Date Diagnosed Date Hypertriglyceridemia 03/12/2024 Alcohol use disorder 02/05/2024 Normocytic normochromic anemia 01/07/2024 Hypothyroidism 01/03/2024 Other seizures 01/03/2024 Other abnormalities of gait and mobility 024 Paroxysmal atrial fibrillation 12/13/2023 Chronic pulmonary embolism 12/13/2023 PEA (Pulseless electrical activity) 12/13/2023 Cardiac tamponade 11/19/2023 Disease characterized by destruction of skeletal muscle 11/19/2023 Alcohol dependence with delirium 03/27/2023 Mixed obsessional thoughts and acts 03/27/2023 Severe alcohol dependence 03/27/2023 MAYUR (generalized anxiety disorder) 03/26/2023 Malnutrition of moderate degree 03/26/2023 MDD (major depressive disorder), severe 03/26/20 Severe recurrent major depre ssion without psychotic features 03/26/2023 Right sided weakness 07/16/2022 Suicide attempt 07/16/2022 Abnormal liver function 04/17/2022 Undifferentiated attention deficit disorder 10/0 05/2020 Mild recurrent major depression 05/16/2019 Bipolar 1 disorder 05/15/2019 Severe depressed bipolar I disorder 05/14/2019 Obstructive sleep apnea syndrome 08/08/2018 Tubular adenoma of colon 06/02/2018 Gastritis due to Helicobacter species 05/23/2018 Rectal polyp 05/21/2018 Gastritis 05/21/2018 Intractable vomiting with nausea 05/20/2018 Encounter for diagnostic col onoscopy due to change in bowel habits 05/20/2018 Essential hypertension 04/04/2018 Vitamin D deficiency 11/15/2017 Gastroesophageal reflux disease 03/15/2017 Resolved Problems Problem Noted Date Diagnosed Date Resolved Date Septicemia due to enterococcus 12/13/2023 12/29/2023 Pneumonia due to Enterococcus species 12/13/2023 12/29/2023 Toxic metabolic encephalopathy 07/16/2022 09/03/2023 Class 1 obesity due to exces s calories with serious comorbidity and body mass index (BMI) of 33.0 to 33.9 in adult 07/16/2022 12/17/2023 Acute respiratory failure with hypoxia 05/12/2019 12/29/2023 Aspiration pneumonia 05/12/2019 024 Reynolds's esophagus without dysplasia 05/21/2018 07/16/2022 Generalized abdominal pain 05/20/2018 0 09/03/2023 Alcohol abuse 06/07/2017 09/03/2023 Immunizations Immunization Administration Dates Next Due COVID-19, mRNA, LNP-S, PF, 100mcg/0.5mL Dose 12/20/2020,12/15/2020,11/22/2020,2020 COVID-19, mRNA, LNP-S, PF, 30mcg/0.3mL Dose 05/03/2023 Hepatitis A 01/21/2017,07/02/2016 Hepatitis B 01/21/2017,08/20/2016,07/02/2016 Influenza (IM) Preservative Free 07/31/2016 Influenza, Injectable, Mdck, Preservative Free, Quad 08/17/2021,08/01/2020,07/19/2017 Influenza, Injectable, quadr ivalent (PF) 09/03/2023,07/16/2022 Influenza, Unspecified 09/02/2016 Tdap 05/14/2023,10/28/2008 Family History Medical History Relation Name Comments Cancer Brother in his spine Depression Father age 70 in '22 Heart disease Father Hip fracture Father Hypertension Father Cancer Maternal Grandfather Colon Stroke Maternal Grandfather Cancer Maternal Grandmother Colon Stroke Maternal Grandmother Diabetes Mother Hypertension Mother Relation Name Status Comments Brother Alive Father Alive Maternal Grandfather Maternal Grandmother Mother Alive Social History Tobacco Use Types Packs/Day Years Used Date Smoking Tobacco: Never Smokeless Tobacco: Never Alcohol Use Standard Drinks/Week Comments Not Currently 42 (1 standard drink = 0.6 oz pu re alcohol) not currently drinking [employer] Utilities Answer Date Recorded In the past 12 months has [employer], gas, oil, or water [employer] threatened to shut off services in your [...] often do you attend chur ch or yazidism services? More than 4 times per year 11/19/2022 Do you belong to any clubs o r organizations such as sikhism groups, unions, fraternal or athletic groups, or [...] Answer Date Recorded Total Score 23 03/12/2024 [facility] of Occupat ional Health - Occupational Stress [...] Recorded Do you need help finding a [facility] career center and/or a training [...] Sign Reading Time Taken Comments Blood Pressure 130/86 03/12/2024 2:09 PM EDT Pulse 78 03/12/2024 2:09 PM EDT Temperature 37.2 C (99 F) 03/12/2024 2:09 PM EDT Respiratory Rate 18 02/05/2024 10:4 2 AM EDT Oxygen Saturation 96% 03/12/2024 2:09 PM EDT Inhaled Oxygen Concentration - - Weight 119.8 kg (264 lb 1.6 oz) 03/12/2024 2:09 PM EDT Height 177.8 cm (5' 10 ) 03/12/2024 2:09 PM EDT Body Mass Index 37.89 03/12/2024 2:09 PM EDT Plan of Treatment Health Maintenance Due Date Last Done Comments Adult BMI Follow Up Plan 1996 Colon Cancer Screening 5 Yea r Sigmoidoscopy 2023 COVID-19 Vaccine (2023- 5 season) 2024 05/03/2023, 08/10/2021, 12/20/2020, Additional history exists Adult BMI Screening 03/12/2025 03/12/2024 Depression Screening 03/12/2025 03/12/2024 Tobacco Screening 03/12/2025 03/12/2024 Influenza Vaccine 05/03/2025 09/03/2023, , 08/17/2021, Additional history exists DTaP,Tdap and Td Vaccines (3 - Td or Tdap) 05/14/2033 05/14/2023, 10/28/2008 Medical Devices Not on file Insurance [employer] Care Teams Bingo Worker Relationship Specialty Start Date End Date Shakeel Guallpa DO [address], [place] [address] PCP - General Family Medicine 05/14/23
--- OUTSIDE RECORDS SUMMARY | 2025-02-15 07:46 | XMS_ITS | Encounter Summary ---
Author Organization [facility] s tem Address [id number] [address] [place] [address] Care Team Providers Care Concrete Batch Plant Operator Name Role Phone BethanieShakeel jackson Primary Care Provider [phone] Encounter Details Date Type Department Care Team (Late st Contact Info) Description 12/18/2023 [facility] [address] [place] [id number] Marlin Conrad, CHIDI Social History Tobacco Use Types Packs/Day Years Used Date Smoking Tobacco: Never Smokeless Tobacco: Never Alcohol Use Standard Drinks/Week Comments Not Currently 42 (1 standard drink = 0.6 oz pu re alcohol) not currently drinking [employer] Utilities Answer Date Recorded In the past 12 months has [employer], gas, oil, or water company threatened to shut [...] often do you attend chur ch or buddhist services? More than 4 times per year 11/19/2022 Do you belong to any clubs o r organizations such as taoism groups, unions, fraternal or athletic groups, or [...] Answer Date Recorded Total Score 7 09/03/2023 [facility] of Occupat ional Health - [...] Recorded Do you need help finding a [facility] career center and/or a training program? No [...] encounter Miscellaneous Notes * Telephone Encounter - Marlin Conrad CMA - 12/18/2023 12:40 PM EDT Pts mother called wanting to know how the pt was doing , and wanting to know what his likelyhood ofgetting better ? She knew [facility] had [facility] . If you want to call mom back the number is [phone] or you can call pt's brother also documented in this encounter Plan of Treatment Not on file documented as of this encounter Visit Diagnoses Not on filedocumented in this encounter Additional Health Concerns Assessment Noted Time PHQ-9 Depression Total Score: 7 09/03/19 24 1:55 PM EST documented as of this encounter Care Teams Concrete Batch Plant Operator Relationship Specialty Start Date End Date Shakeel Guallpa DO [address], [place] [address] PCP - General Family Medicine 05/14/23 documented as of this encounter
--- OUTSIDE RECORDS SUMMARY | 2025-02-15 07:46 | XMS_ITS | Encounter Summary ---
Author Organization [facility] tem Address [id number] [address] [place] [address] Care Team Providers Care Web Ui Developer Name Role Phone KevinShakeel rollins Primary Care Provider [phone] Encounter Details Date Type Department Care Team (Late st Contact Info) Description 12/06/2023 Orders Only [facility] Internal [facility] - Family Medicine [address] [place] [address] External, Scanning Provider Social History Tobacco Use Types Packs/Day Years Used Date Smoking Tobacco: Never Smokeless Tobacco: Never Alcohol Use Standard Drinks/Week Comments Not Currently 42 (1 standard drink = 0.6 oz pu re alcohol) not currently drinking [employer] Utilities Answer Date Recorded In the past 12 months has [employer], gas, oil, or water [employer] threatened to shut off services in [...] often do you attend chur ch or mosque services? More than 4 times per year 11/19/2022 Do you belong to any clubs o r organizations such as orthodox groups, unions, fraternal or athletic groups, [...] Answer Date Recorded Total Score 7 09/03/2023 [facility] of Occupat ional Health - Occupational Stress [...] Recorded Do you need help finding a [facility] career center and/or a training program? No [...] Diagnosis Comments XR CHEST 1 VW Routine 12/05/2023 11:11 AM EDT documented in this encounter Results * X-ray chest 1 view (12/05/2023 11:11 AM EDT) Anatomical Region Laterality Modality Body, Chest N/A Computed Radiogr aphy us Scanning Provider External IMG DIAGNOSTIC IMAGIN G ORDERABLES Final Result documented in this encounter Visit Diagnoses Not on filedocumented in this encounter Additional Health Concerns Assessment Noted Time PHQ-9 Depression Total Score: 7 09/03/19 24 1:55 PM EST documented as of this encounter Care Teams Web Ui Developer Relationship Specialty Start Date End Date Shakeel Guallpa DO [address] [facility], [place] [address] PCP - General Family Medicine 05/14/23 documented as of this encounter
--- OUTSIDE RECORDS SUMMARY | 2025-02-15 07:46 | XMS_ITS | Encounter Summary ---
Author Organization [facility] tem Address [id number] [address] [place] [address] Care Team Providers Care Supervising Floorperson Name Role Phone Shakeel Guallpa DO Primary Care Provider [phone] Reason for Visit * Reason Comments Med Refill Encounter Details Date Type Department Care Team (Late st Contact Info) Description 03/20/2024 Refill [facility] Internal [facility] - Family Medicine [address] [place] [address] Shakeel Guallpa DO [address], [facility] [place] [address] Social History Tobacco Use Types Packs/Day Years Used Date Smoking Tobacco: Never Smokeless Tobacco: Never Alcohol Use Standard Drinks/Week Comments Not Currently 42 (1 standard drink = 0.6 oz pu re alcohol) not currently drinking [facility] Utilities Answer Date Recorded In the past 12 months has [employer], gas, oil, or water [employer] threatened to shut off services in your [...] week 11/19/2022 How often do you attend [facility] or anglican services? More than 4 times per year 11/19/2022 Do you belong to any clubs o r organizations such as rastafarian groups, unions, fraternal or athletic groups, or [...] Answer Date Recorded Total Score 23 03/12/2024 [facility] of Occupat ional Health - [...] Recorded Do you need help finding a [facility] career center and/or a training program? [...] documented as of this encounter Care Teams Supervising Floorperson Relationship Specialty Start Date End Date Shakeel Guallpa DO [address] [facility], [place] [address] PCP - General Family Medicine 05/14/23 documented as of this encounter
--- OUTSIDE RECORDS SUMMARY | 2025-02-15 07:46 | XMS_ITS | Encounter Summary ---
Author Organization [facility] Address [id number] [address] [place] [address] Care Team Providers Care Foiling Machine Adjuster Name Role Phone KevinShakeel rollins Primary Care Provider [phone] Encounter Details Date Type Department Care Team (Late st Contact Info) Description 10/07/2023 Orders Only [facility] Internal [facility] - Family Medicine [address] [place] [address] External, Scanning Provider Social History Tobacco Use Types Packs/Day Years Used Date Smoking Tobacco: Never Smokeless Tobacco: Never Alcohol Use Standard Drinks/Week Comments Not Currently 42 (1 standard drink = 0.6 oz pu re alcohol) not currently drinking [employer] Utilities Answer Date Recorded In the past 12 months has [employer], gas, oil, or water [employer] threatened to shut off services in your [...] any clubs o r organizations such as mormon groups, unions, fraternal or athletic groups, or [...] Answer Date Recorded Total Score 7 09/03/2023 [facility] of Occupat ional Health - Occupational [...] documented as of this encounter Care Teams Foiling Machine Adjuster Relationship Specialty Start Date End Date Shakeel Guallpa DO [address] [facility], [facility] [place] [place] [address] PCP - General Family Medicine 05/14/23 documented as of this encounter
--- OUTSIDE RECORDS SUMMARY | 2025-02-15 07:46 | XMS_ITS | Encounter Summary ---
Author Organization [facility] Address [id number] [address] [place] [address] Care Team Providers Care Aboriginal Education Teacher Name Role Phone BethanieShakeel jackson Primary Care Provider [phone] Encounter Details Date Type Department Care Team (Late st Contact Info) Description 07/19/2022 Orders Only [facility] - Family Medicine [address] [place] [address] External, Scanning Provider Social History Tobacco Use Types Packs/Day Years Used Date Smoking Tobacco: Never Smokeless Tobacco: Never Alcohol Use Standard Drinks/Week Comments Yes 42 (1 standard drink = 0.6 oz pu re alcohol) PHQ-2 Answer Date Recorded Total Score 3 07/16/2022 Childcare Answer Date Recorded Childcare Unknown 02/11/2019 Employment Answer Date Recorded Employment Unknown 02/11/2019 Purpose - Life Answer Date Recorded Purpose and direction in life Unknown Sex and Gender Information Value Date Recorded Sex Assigned at Not on file Legal Sex Male 11:29 AM EDT Gender Identity Not on file Sexual Orientation Not on file COVID-19 Exposure Response Date Recorded In the last month, have you been in contact with someone who was confirmed or suspected to have Coronavirus / COVID-19? No / Unsure 07/16/2022 9:50 AM EST documented as of this encounter Plan of Treatment Not on file documented as of this encounter Visit Diagnoses Not on filedocumented in this encounter Additional Health Concerns Assessment Noted Time PHQ-9 Depression Total Score: 3 07/16/20 22 10:08 AM EST documented as of this encounter Care Teams Aboriginal Education Teacher Relationship Specialty Start Date End Date Shakeel Guallpa DO [address], [facility] [place] [address] PCP - General Family Medicine 05/14/23 documented as of this encounter
--- OUTSIDE RECORDS SUMMARY | 2025-02-15 07:46 | XMS_ITS | Encounter Summary ---
Author Organization [employer] s tem Address [id number] [address] [place] [address] Care Team Providers Care Drill Sharpener Name Role Phone BethanieShakeel jackson Primary Care Provider [phone] Encounter Details Date Type Department Care Team (Late st Contact Info) Description 01/20/2024 [facility]phone [facility] Medicine [address] [place] [id number] Marlin Conrad, CHIDI Social History Tobacco Use Types Packs/Day Years Used Date Smoking Tobacco: Never Smokeless Tobacco: Never Alcohol Use Standard Drinks/Week Comments Not Currently 42 (1 standard drink = 0.6 oz pu re alcohol) not currently drinking [employer] Utilities Answer Date Recorded In the past 12 months has [employer], gas, oil, or water company threatened to [...] often do you attend chur ch or shinto services? More than 4 times per year 11/19/2022 Do you belong to any clubs o r organizations such as baptism groups, unions, fraternal or athletic groups, or [...] Answer Date Recorded Total Score 7 09/03/2023 [facility] of Occupat ional Health - Occupational Stress [...] Recorded Do you need help finding a [facility] career center and/or a training program? No [...] Telephone Encounter - Marlin Conrad CMA - 01/20/2024 3:22 PM EDT Pts mom called requesting that his ref[facility] [place] [facility] as stated on the home health care notes in media * Telephone Encounter - Carla Ramirez - 01/20/2024 3:22 PM EDT Mom called back again. I let her know all of her sons refills were sent to [facility] 01/23/24. I advised that if they hadnt arrived yet to call the pharmacy for a status update on delivery. She will call back if they wont make to her in time. She reports he will run out after tomorrow. * Telephone Encounter - Carla Ramirez - 01/20/2024 3:22 PM EDT Vit D and multivitamin requests are being faxed from [facility]. Pharmacy confirms all other refills are in transit to patient aside from the gabapentin which is in production. documented in this encounter Plan of Treatment Not on file documented as of this encounter Visit Diagnoses Not on filedocumented in this encounter Additional Health Concerns Assessment Noted Time PHQ-9 Depression Total Score: 7 09/03/19 1:55 PM EST documented as of this encounter Care Teams Drill Sharpener Relationship Specialty Start Date End Date Shakeel Guallpa DO [address], [facility] [place] [address] PCP - General Family Medicine 05/14/23 documented as of this encounter
--- OUTSIDE RECORDS SUMMARY | 2025-02-15 07:46 | XMS_ITS | Encounter Summary ---
Author Organization [facility] Address [facility] [id number] [address] [place] [address] Care Team Providers Care Trestle Mainternance Laborer Name Role Phone KevinShakeel rollins Primary Care Provider [phone] Encounter Details Date Type Department Care Team (Late st Contact Info) Description 10/02/2023 Orders Only [facility] Internal Medicine - Family Medicine [address] [place] [address] External, Scanning Provider Social History Tobacco Use Types Packs/Day Years Used Date Smoking Tobacco: Never Smokeless Tobacco: Never Alcohol Use Standard Drinks/Week Comments Not Currently 42 (1 standard drink = 0.6 oz pu re alcohol) not currently drinking [employer] Utilities Answer Date Recorded In the past 12 months has [employer], gas, oil, or water [employer] threatened to shut off services in your [...] often do you attend chur ch or bahai services? More than 4 times per year [...] Answer Date Recorded Total Score 7 09/03/2023 [facility] of Occupat ional Health - Occupational [...] Diagnosis Comments XR CHEST 1 VW Routine 10/02/2023 11:09 AM EST documented in this encounter Results * X-ray chest 1 view (10/02/2023 11:09 AM EST) Anatomical Region Laterality Modality Body, Chest N/A Computed Radiogr aphy us Scanning Provider External IMG DIAGNOSTIC IMAGIN G ORDERABLES Final Result documented in this encounter Visit Diagnoses Not on filedocumented in this encounter Additional Health Concerns Assessment Noted Time PHQ-9 Depression Total Score: 7 09/03/19 24 1:55 PM EST documented as of this encounter Care Teams Trestle Mainternance Laborer Relationship Specialty Start Date End Date Shakeel Guallpa DO [address] [facility], [place] [address] PCP - General Family Medicine 05/14/23 documented as of this encounter
--- OUTSIDE RECORDS SUMMARY | 2025-02-15 07:46 | XMS_ITS | Encounter Summary ---
Author Organization [facility] Sys tem Address [facility] [id number] [address] [place] [address] Care Team Providers Care Eap Consultant Name Role Phone KevinShakeel rollins Primary Care Provider +1 [phone] Encounter Details Date Type Department Care Team (Late st Contact Info) Description 11/12/2023 Orders Only [facility] Internal Medicine - Family Medicine [address] [place] [address] External, Scanning Provider Social History Tobacco Use Types Packs/Day Years Used Date Smoking Tobacco: Never Smokeless Tobacco: Never Alcohol Use Standard Drinks/Week Comments Not Currently 42 (1 standard drink = 0.6 oz pu re alcohol) not currently drinking [employer] Utilities Answer Date Recorded In the past 12 months has [employer], gas, oil, or water [employer] threatened to shut off services in your [...] often do you attend chur ch or alevism services? More than 4 times per year 11/19/2022 Do you belong to any clubs o r organizations such as spiritism groups, unions, fraternal or athletic groups, or [...] Answer Date Recorded Total Score 7 09/03/2023 [facility] of Occupat ional Health - [...] Do you need help finding a [facility] career center and/or a training program? [...] Procedure Name Priority Date/Time Associated Diagnosis Comments MR BRAIN WO CONT Routine 11/11/2023 2:06 PM EDT documented in this encounter Results * MR brain without contrast (11/11/2023 2:06 PM EDT) Anatomical Region Laterality Modality Neuro, Head, Head and Neck, Neuro Covera N/A Magnetic Resonance us Scanning Provider External IMG MRI ORDERABLES Fi nal Result documented in this encounter Visit Diagnoses Not on filedocumented in this encounter Additional Health Concerns Assessment Noted Time PHQ-9 Depression Total Score: 7 09/03/19 24 1:55 PM EST documented as of this encounter Care Teams Eap Consultant Relationship Specialty Start Date End Date Shakeel Guallpa DO [address] [facility], [place] [address] PCP - General Family Medicine 05/14/23 documented as of this encounter
--- OUTSIDE RECORDS SUMMARY | 2025-02-15 07:46 | XMS_ITS | Encounter Summary ---
Author Organization [facility] Sys tem Address [facility] [id number] [address] [place] [address] Care Team Providers Care Tools And Parts Attendant Name Role Phone KevinShakeel rollins Primary Care Provider [phone] [phone] Encounter Details Date Type Department Care Team (Late st Contact Info) Description 11/18/2023 Orders Only [facility] Internal Medicine - Family Medicine [address] [place] [address] External, Scanning Provider Social History Tobacco Use Types Packs/Day Years Used Date Smoking Tobacco: Never Smokeless Tobacco: Never Alcohol Use Standard Drinks/Week Comments Not Currently 42 (1 standard drink = 0.6 oz pu re alcohol) not currently drinking [employer] Utilities Answer Date Recorded In the past 12 months has [employer], gas, oil, or water [employer] threatened to shut off services in your [...] often do you attend chur ch or spiritism services? More than 4 times per year 11/19/2022 Do you belong to any clubs o r organizations such as druze groups, unions, fraternal or athletic groups, or [...] Recorded Do you need help finding a [facility] career center and/or a training program? [...] Diagnosis Comments XR CHEST 1 VW Routine 11/17/2023 2:58 PM EDT FL ESOPHAGUS Routine 11/17/2023 2:57 PM EDT documented in this encounter Results * X-ray chest 1 view (11/17/2023 2:58 PM EDT) Anatomical Region Laterality Modality Body, Chest N/A Computed Radiogr aphy us Scanning Provider External IMG DIAGNOSTIC IMAGIN G ORDERABLES Final Result * Fluoroscopy esophagus (11/17/2023 2:57 PM EDT) Anatomical Region Laterality Modality Body Radiographic Adriana ging us Scanning Provider External IMG FLUOROSCOPY ORDER FARZANEH Final Result documented in this encounter Visit Diagnoses Not on filedocumented in this encounter Additional Health Concerns Assessment Noted Time PHQ-9 Depression Total Score: 7 09/03/19 24 1:55 PM EST documented as of this encounter Care Teams Tools And Parts Attendant Relationship Specialty Start Date End Date Shakeel Guallpa DO [address] [facility], [place] [address] PCP - General Family Medicine 05/14/23 documented as of this encounter
--- OUTSIDE RECORDS SUMMARY | 2025-02-15 07:46 | XMS_ITS | Encounter Summary ---
Author Organization [facility] Sys tem Address [facility] [id number] [address] [place] [address] Care Team Providers Care Global Regulatory Affairs Manager Name Role Phone KevinShakeel rollins Primary Care Provider [phone] Encounter Details Date Type Department Care Team (Late st Contact Info) Description 11/11/2023 Orders Only [facility] - Family Medicine [address] [place] [address] External, Scanning Provider Social History Tobacco Use Types Packs/Day Years Used Date Smoking Tobacco: Never Smokeless Tobacco: Never Alcohol Use Standard Drinks/Week Comments Not Currently 42 (1 standard drink = 0.6 oz pu re alcohol) not currently drinking [employer] Utilities Answer Date Recorded In the past 12 months has [employer], gas, oil, or water [employer] threatened to shut off services in your [...] often do you attend chur ch or christian services? More than 4 times per year [...] Recorded Do you need help finding a [facility] career center and/or a training [...] Diagnosis Comments XR CHEST 1 VW Routine 11/11/2023 2:18 PM EDT XR CHEST 1 VW Routine 11/10/2023 2:18 PM EDT XR CHEST 1 VW Routine 11/09/2023 2:17 PM EST documented in this encounter Results * X-ray chest 1 view (11/11/2023 2:18 PM EDT) Anatomical Region Laterality Modality Body, Chest N/A Computed Radiogr aphy us Scanning Provider External IMG DIAGNOSTIC IMAGIN G ORDERABLES Final Result * X-ray chest 1 view (11/10/2023 2:18 PM EDT) Anatomical Region Laterality Modality Body, Chest N/A Computed Radiogr aphy us Scanning Provider External IMG DIAGNOSTIC IMAGIN G ORDERABLES Final Result * X-ray chest 1 view (11/09/2023 2:17 PM EST) Anatomical Region Laterality Modality Body, Chest N/A Computed Radiogr aphy us Scanning Provider External IMG DIAGNOSTIC IMAGIN G ORDERABLES Final Result documented in this encounter Visit Diagnoses Not on filedocumented in this encounter Additional Health Concerns Assessment Noted Time PHQ-9 Depression Total Score: 7 09/03/19 24 1:55 PM EST documented as of this encounter Care Teams Global Regulatory Affairs Manager Relationship Specialty Start Date End Date Shakeel Guallpa DO [address] [facility], [place] [address] PCP - General Family Medicine 05/14/23 documented as of this encounter
--- OUTSIDE RECORDS SUMMARY | 2025-02-15 07:46 | XMS_ITS | Encounter Summary ---
Author Organization [facility] Sys tem Address [facility] [id number] [address] [place] [address] Care Team Providers Care Retail Sales Manager Name Role Phone KevinShakeel rollins Primary Care Provider [phone] Encounter Details Date Type Department Care Team (Late st Contact Info) Description 11/08/2023 Orders Only [facility] Medicine - Family Medicine [address] [place] [address] External, Scanning Provider Social History Tobacco Use Types Packs/Day Years Used Date Smoking Tobacco: Never Smokeless Tobacco: Never Alcohol Use Standard Drinks/Week Comments Not Currently 42 (1 standard drink = 0.6 oz pu re alcohol) not currently drinking [employer] Utilities Answer Date Recorded In the past 12 months has [employer], gas, oil, or water [employer] threatened to shut off services in your [...] any clubs o r organizations such as hindu groups, unions, fraternal or athletic groups, or [...] Answer Date Recorded Total Score 7 09/03/2023 [facility] of Occupat ional Health - Occupational Stress [...] Recorded Do you need help finding a [facility] career center and/or a training [...] Diagnosis Comments XR CHEST 1 VW Routine 11/08/2023 12:41 PM EST XR CHEST 1 VW Routine 11/07/2023 12:40 PM EST documented in this encounter Results * X-ray chest 1 view (11/08/2023 12:41 PM EST) Anatomical Region Laterality Modality Body, Chest N/A Computed Radiogr aphy us Scanning Provider External IMG DIAGNOSTIC IMAGIN G ORDERABLES Final Result * X-ray chest 1 view (11/07/2023 12:40 PM EST) Anatomical Region Laterality Modality Body, Chest N/A Computed Radiogr aphy us Scanning Provider External IMG DIAGNOSTIC IMAGIN G ORDERABLES Final Result documented in this encounter Visit Diagnoses Not on filedocumented in this encounter Additional Health Concerns Assessment Noted Time PHQ-9 Depression Total Score: 7 09/03/19 24 1:55 PM EST documented as of this encounter Care Teams Retail Sales Manager Relationship Specialty Start Date End Date Shakeel Guallpa DO [address] [facility], [place] [address] PCP - General Family Medicine 05/14/23 documented as of this encounter
--- OUTSIDE RECORDS SUMMARY | 2025-02-15 07:46 | XMS_ITS | Encounter Summary ---
Author Organization [employer] s tem Address [id number] [address] [place] [address] Care Team Providers Care Emergency Room Clinician Name Role Phone BethanieShakeel jackson Primary Care Provider [phone] Encounter Details Date Type Department Care Team (Late st Contact Info) Description 03/23/2024 [facility]phone [facility] [address] [place] [phone] Omega Jimenez CMA Social History Tobacco Use Types Packs/Day Years Used Date Smoking Tobacco: Never Smokeless Tobacco: Never Alcohol Use Standard Drinks/Week Comments Not Currently 42 (1 standard drink = 0.6 oz pu re alcohol) not currently drinking [employer] Utilities Answer Date Recorded In the past 12 months has [employer], gas, oil, or water company threatened to [...] any clubs o r organizations such as adventist groups, unions, fraternal or athletic groups, or [...] Answer Date Recorded Total Score 23 03/12/2024 [facility] of Occupat ional Health - [...] you need help finding a [facility] career center and/or a training program? [...] encounter Miscellaneous Notes * Telephone Encounter - Omega Jimenez CMA - 03/23/2024 2:36 PM EDT Pt mother called states Fields documented in this encounter Plan of Treatment Not on file documented as of this encounter Visit Diagnoses Not on filedocumented in this encounter Additional Health Concerns Assessment Noted Time PHQ-9 Depression Total Score: 23 024 2:06 PM EDT documented as of this encounter Care Teams Emergency Room Clinician Relationship Specialty Start Date End Date Shakeel Guallpa DO [address], [place] [address] PCP - General Family Medicine 05/14/23 documented as of this encounter
--- OUTSIDE RECORDS SUMMARY | 2025-02-15 07:46 | XMS_ITS | Encounter Summary ---
Author Organization [facility] Sys tem Address [facility] [id number] [address] [place] [address] Care Team Providers Care Mold Loft Worker Name Role Phone KevinShakeel rollins Primary Care Provider [phone] Encounter Details Date Type Department Care Team (Late st Contact Info) Description 10/01/2023 Orders Only [facility] Internal Medicine - Family Medicine [address] [place] [address] External, Scanning Provider Social History Tobacco Use Types Packs/Day Years Used Date Smoking Tobacco: Never Smokeless Tobacco: Never Alcohol Use Standard Drinks/Week Comments Not Currently 42 (1 standard drink = 0.6 oz pu re alcohol) not currently drinking [employer] Utilities Answer Date Recorded In the past 12 months has [employer], gas, oil, or water [employer] threatened to shut off services in your [...] Answer Date Recorded Total Score 7 09/03/2023 [facility] of Occupat ional Health - [...] documented as of this encounter Care Teams Mold Loft Worker Relationship Specialty Start Date End Date Shakeel Guallpa DO [address] [facility] [address] PCP - General Family Medicine 05/14/23 documented as of this encounter
--- OUTSIDE RECORDS SUMMARY | 2025-02-15 07:46 | XMS_ITS | Encounter Summary ---
Author Organization [employer] s tem Address [facility] [id number] [address] [place] [address] Care Team Providers Care Director Learning And Development Name Role Phone Shakeel Guallpa Primary Care Provider [phone] Encounter Details Date Type Department Care Team (Late st Contact Info) Description 03/26/2024 [facility] [address] [place] [address] Joseline Randhawa CMA Social History Tobacco Use Types Packs/Day Years Used Date Smoking Tobacco: Never Smokeless Tobacco: Never Alcohol Use Standard Drinks/Week Comments Not Currently 42 (1 standard drink = 0.6 oz pu re alcohol) not currently drinking [employer] Utilities Answer Date Recorded In the past 12 months has [employer], gas, oil, or water company threatened to [...] often do you attend chur ch or gnosticism services? More than 4 times per year [...] encounter Miscellaneous Notes * Telephone Encounter - Joseline Randhawa CMA - 03/26/2024 1:54 PM EDT Patient needs an appointment per Dr. Guallpa since he was [facility] documented in this encounter Plan of Treatment Not on file documented as of this encounter Visit Diagnoses Not on filedocumented in this encounter Additional Health Concerns Assessment Noted Time PHQ-9 Depression Total Score: 23 024 2:06 PM EDT documented as of this encounter Care Teams Director Learning And Development Relationship Specialty Start Date End Date Shakeel Guallpa DO [address] [place], [facility] [place] [address] PCP - General Family Medicine 05/14/23 documented as of this encounter
--- OUTSIDE RECORDS SUMMARY | 2025-02-15 07:46 | XMS_ITS | Encounter Summary ---
Author Organization [facility] Sys tem Address [facility] [id number] [address] [place] [address] Care Team Providers Care Public Relations Coordinator Name Role Phone BethanieShakeel jackson Primary Care Provider [phone] Encounter Details Date Type Department Care Team (Late st Contact Info) Description 07/16/2022 Orders Only [facility] Internal Medicine - Family Medicine [address] [place] [address] External, Scanning Provider Social History Tobacco Use [...] Procedure Name Priority Date/Time Associated Diagnosis Comments MULTIPLE LABS Routine 01/08/2022 documented in this encounter Results * Multiple labs (01/08/2022) 01/08/2022 us Scanning Provider External MA IMAGING Final Result MANUALLY TRANSCRIBED RESULTS documented in this encounter Visit Diagnoses Not on filedocumented in this encounter Additional Health Concerns Assessment Noted Time PHQ-9 Depression Total Score: 3 07/16/20 22 10:08 AM EST documented as of this encounter Care Teams Public Relations Coordinator Relationship Specialty Start Date End Date Shakeel Guallpa DO [address] [facility], [place] [address] PCP - General Family Medicine 05/14/23 documented as of this encounter
--- OUTSIDE RECORDS SUMMARY | 2025-02-15 07:47 | XMS_ITS | Encounter Summary ---
Author Organization [facility] Sys tem Address [id number] [address] [place] [address] Care Team Providers Care Costumed Character Name Role Phone KevinShakeel rollins Primary Care Provider [phone] Encounter Details Date Type Department Care Team (Late st Contact Info) Description 11/20/2023 Orders Only [facility] Internal Medicine - Family Medicine [address] [place] [address] External, Scanning Provider Social History Tobacco Use Types Packs/Day Years Used Date Smoking Tobacco: Never Smokeless Tobacco: Never Alcohol Use Standard Drinks/Week Comments Not Currently 42 (1 standard drink = 0.6 oz pu re alcohol) not currently drinking [employer] Utilities Answer Date Recorded In the past 12 months has [employer], gas, oil, or water [employer] threatened to shut off services in your [...] often do you attend chur ch or restorationism services? More than 4 times per year 11/19/2022 Do you belong to any clubs o r organizations such as sabianist groups, unions, fraternal or athletic groups, or [...] Answer Date Recorded Total Score 7 09/03/2023 [facility] of Occupat ional Health - [...] Diagnosis Comments XR CHEST 1 VW Routine 11/19/2023 1:24 PM EDT documented in this encounter Results * X-ray chest 1 view (11/19/2023 1:24 PM EDT) Anatomical Region Laterality Modality Body, Chest N/A Computed Radiogr aphy us Scanning Provider External IMG DIAGNOSTIC IMAGIN G ORDERABLES Final Result documented in this encounter Visit Diagnoses Not on filedocumented in this encounter Additional Health Concerns Assessment Noted Time PHQ-9 Depression Total Score: 7 09/03/19 24 1:55 PM EST documented as of this encounter Care Teams Costumed Character Relationship Specialty Start Date End Date Shakeel Guallpa DO [address] [facility], [place] [address] PCP - General Family Medicine 05/14/23 documented as of this encounter
[2025-02-15 08:32] LABS: Alanine Aminotransferase 69 U/L (16-63); Albumin Globulin Ratio 0.9; Albumin Level 3.6 g/dL (3.4-5.0); Alkaline Phosphatase 133 U/L (46-116); Anion Gap 18.5; Aspartate Amino Transferase 78 U/L (15-37); BUN Creatinine Ratio 8.9; Bilirubin Total 0.4 mg/dL (0.2-1.0); Calcium 9.2 mg/dL (8.5-10.1); Carbon Dioxide 24.5 mmol/L (21.0-32.0); Chloride 98 mmol/L (98-107); Estimated GFR (African America >60 (>=60 mL/min/1.73m^2); Estimated GFR (Non-African Ame >60 (>=60 mL/min/1.73m^2); Globulin 4.2 g/dL; Glucose 128 mg/dL (74-106); Sodium 137 mmol/L (136-145); Total Protein 7.8 g/dL (6.4-8.2)
[2025-02-15 08:34] LABS: Hematocrit 43.6 % (42.0-54.0); Hemoglobin 14.9 g/dL (14.0-18.0); Mean Corpuscular HGB Conc 34.2 g/dL (29.9-35.2); Mean Corpuscular Hemoglobin 31.1 pg (25.9-34.0); Mean Platelet Volume 10.1 fL (9.5-13.5); Platelet Count 470 10^3/uL (150-450); Red Blood Count 4.79 10^6/uL (4.70-6.10); Red Cell Distribution Width 14.3 % (11.0-15.0); White Blood Count 9.3 10^3/uL (4.0-11.0)
[2025-02-16 05:07] LABS: HCV Ab Non Reactive (Non Reactive); HIV Ab/p24 Ag Screen Non Reactive (Non Reactive); Hep B Core Ab, IgM Negative (Negative)
== END 2025-02-15 07:41 | disposition home or self-care (01) ==
DX: Z13.6 Encounter for screening for cardiovascular disorders (principal); Z13.1 Encounter for screening for diabetes mellitus; Z11.4 Encounter for screening for human immunodeficiency virus [HIV]; F10.20 Alcohol dependence, uncomplicated
CPT/HCPCS: 36415; 80053; 80061; 83036; 85027; 86803; 87389

== ENCOUNTER 2025-04-15 08:22 | Emergency (ER) | payer OTHER, SELFPAY ==
[2025-04-15 08:31] VITALS: BP 133/92; PULSE 63; TEMP 36.7; O2SAT 94; BMI 40.2
[2025-04-15 08:38] VITALS: PULSE 60
--- NOTE | 2025-04-15 08:38 | XR_ITS ---
The [address] [address] Patient Name: KANDICE POLANCO MRN: [id number] date: 1980 Sex: M Assigned Patient Location: ER Current Patient Location: ER Accession/Order Number: [id number] Exam Date: 04/15/2025 09:16 Report Date: 04/15/2025 09:17 At the request of: KAREN MALLOY MD Procedure: XR knee LT 4V LEFT KNEE - 4 views CLINICAL HISTORY: fall COMPARISON: Left knee 01/10/2025 FINDINGS: No knee joint effusion. No acute bony process. Joint spaces appear maintained. XR/XR knee LT 4V IMPRESSION: NO ACUTE BONY PROCESS. Impression dictated by: Florencio Armando Jr. [email or web address] 04/15/2025 9:17 AM Dictation Location: [place] [address] Electronically authenticated by: [id number] Date: 04/15/2025 09:17
--- NOTE | 2025-04-15 08:55 | ED.GENADUL1 ---
HPI HPI - General Adult General Chief complaint: Extremity Injury, Lower Stated complaint: fall, lower extremity injury - 04/13/2025 Time Seen by Provider: 04/15/25 08:39 Source: patient Mode of arrival: walk-in Limitations: no limitations History of Present Illness HPI narrative: 45-year-old male presented to the emergency department for pain to his left knee. He fell on it 2 days ago when he fell getting out of the car. No other injury was sustained, he did not hit his head. He has been able to ambulate with a limp. The pain is moderate. Related Data Home Medications ?Medication ?Instructions ?Recorded ?Confirmed clonidine HCl 0.2 mg tablet 0.2 mg PO BEDTIME 09/30/23 10/01/23 doxepin 10 mg capsule 10 mg PO .hs 09/30/23 10/01/23 fluoxetine 10 mg capsule 10 mg PO DAILY 09/30/23 10/01/23 gabapentin 100 mg capsule 100 mg PO TID 09/30/23 10/01/23 gabapentin 300 mg capsule 600 mg PO Q8H 09/30/23 10/01/23 hydroxyzine pamoate 50 mg capsule 50 mg PO Q8H 09/30/23 10/01/23 olanzapine 20 mg tablet 20 mg PO BEDTIME 09/30/23 10/01/23 omega-3 acid ethyl esters 1 gram 2 cap PO BID 09/30/23 10/01/23 capsule omeprazole 20 mg capsule,delayed 20 mg PO DAILY 09/30/23 10/01/23 release buspirone 10 mg tablet 10 mg PO TID 10/01/23 10/01/23 melatonin 3 mg tablet 3 mg PO BEDTIME 10/01/23 10/01/23 viloxazine 200 mg capsule,extended 400 mg PO BEDTIME 10/01/23 10/01/23 release 24 hr (Qelbree) Allergies Allergy/AdvReac Type Severity Reaction Status Date / Time azithromycin Allergy Intermediate Rash Verified 01/10/25 10:11 codeine Allergy Intermediate Rash Verified 01/10/25 10:11 Penicillins Allergy Intermediate Rash Verified 01/10/25 10:11 Sulfa (Sulfonamide Allergy Intermediate Rash Verified 01/10/25 10:11 Antibiotics) Opioid HPI Opioid Management Most Recent Opioid Data: Ur Phencyclidine Scrn, (NEGATIVE) Negative 09/30/23, 23:15 Review of Systems ROS Narrative A ten point review of systems is negative except as noted above. [facility] Medical History Anxiety ?F41.9 - Anxiety disorder, unspecified (ICD-10) Bipolar 1 disorder ?F31.9 - Bipolar disorder, unspecified (ICD-10) Social History Within the past year, how often did you have a drink containing alcohol: 4 or more times a week Within the past year, how many standard drinks containing alcohol did you have on a typical day: 7 to 9 Within the past year, how often did you have six or more drinks on one occasion: daily or almost daily Total score: 10 Score interpretation: A score of 4 or more indicates drinking is likely to affect patient's safety. Smoking status: Current every day smoker Non-prescribed substance use: cannabis (any form) Highest level of school completed/degree received: some college, no degree Little interest or pleasure in doing things: not at all Feeling down, depressed, or hopeless: not at all Exam Narrative Exam Narrative: Nurses note and vital signs reviewed and patient is not hypoxic. General: The patient appears well and in no apparent distress. Patient is resting comfortably on cart. Skin: Warm, dry, no pallor noted. There is no rash noted. Head: Normocephalic, atraumatic Eye: Normal conjunctiva, no drainage Ears, Nose, Mouth, and Throat: oral mucosa is moist. Nares patent. Cardiovascular: Regular Rate and Rhythm Respiratory: Patient is in no distress, no accessory muscle use, lungs are clear to auscultation, no wheezing, rales or rhonchi Back: non-tender GI: Soft and nontender Musculoskeletal: The left knee is examined. There is bruising and an abrasion. The knee joint is stable. The hip and ankle are nontender. Neurological: A&O, normal speech Psychiatric: Cooperative Constitutional Vital Signs, click to edit/add: Last Vital Signs Temp 98.1 F 04/15/25 08:31 Pulse 60 04/15/25 08:38 Resp 16 04/15/25 08:31 BP 133/92 H 04/15/25 08:31 Pulse Ox 94 L 04/15/25 08:31 O2 Del Method Room Air 04/15/25 08:31 Course Vital Signs Vital signs: Vital Signs Temperature 98.1 F 04/15/25 08:31 Pulse Rate 63 04/15/25 08:31 Respiratory Rate 16 04/15/25 08:31 Blood Pressure 133/92 H 04/15/25 08:31 Pulse Oximetry 94 L 04/15/25 08:31 Oxygen Delivery Method Room Air 04/15/25 08:31 Temperature 98.1 F 04/15/25 08:31 Pulse Rate 60 04/15/25 08:38 Respiratory Rate 16 04/15/25 08:31 Blood Pressure 133/92 H 04/15/25 08:31 Pulse Oximetry 94 L 04/15/25 08:31 Oxygen Delivery Method Room Air 04/15/25 08:31 Medical Decision Making MDM Narrative Medical decision making narrative: X-rays negative per radiologist. Tetanus status is already up-to-date. Treatment diagnosis and follow-up were discussed with the patient. Differential Diagnosis Differential Diagnosis: Contusion, fracture, effusion Imaging Data Left knee x-ray: Radiologist's impression: ITS Impressions Knee X-Ray 04/15/25 08:38 IMPRESSION: NO ACUTE BONY PROCESS. Impression dictated by: Florencio Armando Jr., D.O. 04/15/2025 9:17 AM Dictation Location: [place] [id number] Electronically authenticated by: [id number] Y Date: 04/15/2025 09:17 Discharge Plan Discharge Chief Complaint: Extremity Injury, Lower Clinical Impression: Contusion of knee, left Patient Disposition: Home, Self-Care Time of Disposition Decision: 09:24 Condition: Good Mode of Transportation: Private Vehicle Prescriptions / Home Meds: No Action hydroxyzine pamoate 50 mg capsule 50 mg PO Q8H doxepin 10 mg capsule 10 mg PO .hs clonidine HCl 0.2 mg tablet 0.2 mg PO BEDTIME fluoxetine 10 mg capsule 10 mg PO DAILY gabapentin 300 mg capsule 600 mg PO Q8H omeprazole 20 mg capsule,delayed release(DR/EC) 20 mg PO DAILY gabapentin 100 mg capsule 100 mg PO TID olanzapine 20 mg tablet 20 mg PO BEDTIME omega-3 acid ethyl esters 1 gram capsule 2 cap PO BID buspirone 10 mg tablet 10 mg PO TID melatonin 3 mg tablet 3 mg PO BEDTIME Qelbree 200 mg capsule,extended release 24hr 400 mg PO BEDTIME Print Language: Slovak Instructions: Contusion in Adults (ED) Referrals: BRENDEN MARTIN PA [Primary Care Provider] - 1 week
== END 2025-04-15 09:31 | disposition home or self-care (01) ==
PROVIDERS: Emergency Provider Emergency Medicine
DX: S80.02XA Contusion of left knee, initial encounter (principal); W17.89XA Other fall from one level to another, initial encounter
CPT/HCPCS: 73564; 99283

== ENCOUNTER 2025-05-27 13:46 | Outpatient (OUT) | payer OTHER, SELFPAY | END 2025-05-27 13:47 | disposition home or self-care (01) | LOC: SLEEP 13:46 | DX: G47.33 Obstructive sleep apnea (adult) (pediatric) (principal) | CPT/HCPCS: 95806 ==

== ENCOUNTER 2025-08-11 10:29 | Outpatient (OUT) | payer OTHER, SELFPAY ==
[2025-08-11 11:32] LABS: Alanine Aminotransferase 140 U/L (16-63); Aspartate Amino Transferase 87 U/L (15-37); Cholesterol 223 mg/dL (<=200); HDL Cholesterol 26 mg/dL (40-60); Thyroid Stimulating Hormone 2.130 uIU/mL (0.358-3.740); Triglycerides 377 mg/dL (<=150); VLDL CHOLESTEROL 75.4 mg/dL
== END 2025-08-11 10:30 | disposition home or self-care (01) ==
LOC: LAB 10:30
PROVIDERS: Visit Provider Internal Medicine Cardiovascular Disease
DX: E78.5 Hyperlipidemia, unspecified (principal)
CPT/HCPCS: 36415; 80061; 84439; 84443; 84450; 84460